=== PATIENT | male | born 1940 | race Caucasian/White ===

== ENCOUNTER 2017-05-02 07:38 | Day surgery (SDC) | payer MEDICARE ==
[2017-05-02] MEDS ORDERED: LACTATED RINGERS 1,000 ML IV ONE (08:06)
[2017-05-02] MEDS ORDERED: MIDAZOLAM 2 MG/2 ML VIAL IVP ONE (09:17)
[2017-05-02] MEDS ORDERED: fentaNYL 100 MCG/2 ML VIAL IVP ONE (09:17)
[2017-05-02 11:19] VITALS: BP 133/67
== END 2017-05-02 07:39 | disposition home or self-care (01) ==
LOC: SDS 07:38
PROVIDERS: ATTEND Surgery
PROC: 0DBL8ZX Excision of Transverse Colon, Via Natural or Artificial Opening Endoscopic, Diagnostic (ICD-10-PCS; 2017-05-02)
PROC: 0DBM8ZX Excision of Descending Colon, Via Natural or Artificial Opening Endoscopic, Diagnostic (ICD-10-PCS; 2017-05-02)
PROC: 0DBK8ZX Excision of Ascending Colon, Via Natural or Artificial Opening Endoscopic, Diagnostic (ICD-10-PCS; principal; 2017-05-02 09:45)
DX: D12.2 Benign neoplasm of ascending colon (principal); D12.3 Benign neoplasm of transverse colon; E03.9 Hypothyroidism, unspecified; Z87.891 Personal history of nicotine dependence; Z88.5 Allergy status to narcotic agent
CPT/HCPCS: 45384; J7120

== ENCOUNTER 2017-06-13 15:00 | Outpatient (CLI) | payer MEDICARE, OTHER | END 2017-06-13 15:01 | disposition home or self-care (01) | LOC: LAB.R 15:00 | PROVIDERS: ATTEND Physician Assistant Medical | DX: L03.90 Cellulitis, unspecified (principal) | CPT/HCPCS: 81599; 87255 ==

== ENCOUNTER 2018-10-05 11:40 | Outpatient (CLI) | payer MEDICARE, OTHER ==
[2018-10-05 18:43] LABS: BASOPHILS % (AUTO) 0.6 %; EOSINOPHILS # (AUTO) 0.1 10^3/uL (0.0-0.7); EOSINOPHILS % (AUTO) 1.4 %; HGB - HEMOGLOBIN 14.3 g/dL (14.0-18.0); LYMPHOCYTES # (AUTO) 1.7 10^3/uL (1.5-3.5); LYMPHOCYTES % (AUTO) 22.5 %; MEAN CORPUSCULAR HEMOGLOBIN 31.6 pg (27.0-31.0); MEAN CORPUSCULAR HGB CONC 32.9 g/dL (32.0-36.0); MEAN PLATELET VOLUME 8.3 fL (7.4-11.4); MONOCYTES # (AUTO) 0.6 10^3/uL (0.0-1.0); MONOCYTES % (AUTO) 8.1 %; NEUTROPHILS # (AUTO) 5.1 10^3/uL (1.5-6.6); NEUTROPHILS % (AUTO) 67.4 %; PLT - PLATELET COUNT 219 10^3/uL (130-450); RED BLOOD COUNT 4.52 10^6/uL (4.70-6.10); RED CELL DISTRIBUTION WIDTH 13.4 % (12.0-15.0); WHITE BLOOD COUNT 7.5 x10^3/uL (4.8-10.8)
[2018-10-05 19:24] LABS: ALBUMIN 3.9 g/dL (3.2-5.5); ALBUMIN/GLOBULIN RATIO 1.2 (1.0-2.2); ALKALINE PHOSPHATASE 70 IU/L (42-121); ALT ALANINE AMINOTRANSFERASE 20 IU/L (10-60); AST ASPARTATE AMINOTRANSFERASE 17 IU/L (10-42); BILIRUBIN,TOTAL 0.8 mg/dL (0.2-1.0); BUN - BLOOD UREA NITROGEN 22 mg/dL (6-20); CALCIUM 8.6 mg/dL (8.5-10.3); CARBON DIOXIDE - CO2 24 mmol/L (21-32); CHLORIDE 106 mmol/L (101-111); CHOL/HDL RATIO 4.3 (<5.0); CHOLESTEROL 196 mg/dL; CREATININE 1.2 mg/dL (0.6-1.2); GFR - MDRD 59 (>89); GLUCOSE 92 mg/dL (70-100); HDL CHOLESTEROL 46 mg/dL; LDL CHOLESTEROL,CALCULATED 124 mg/dL; LDL/HDL RATIO 2.7 (<3.6); SODIUM 136 mmol/L (135-145); TOTAL PROTEIN 7.2 g/dL (6.7-8.2); VLDL CHOLESTEROL 26 mg/dL
[2018-10-05 19:48] LABS: FREE T4 (FREE THYROXINE) 0.73 ng/dL (0.58-1.64)
== END 2018-10-05 23:59 | disposition home or self-care (01) ==
LOC: LAB.WCP 11:40
PROVIDERS: ATTEND Physician Assistant
DX: E78.00 Pure hypercholesterolemia, unspecified (principal); E03.9 Hypothyroidism, unspecified; Z12.5 Encounter for screening for malignant neoplasm of prostate
CPT/HCPCS: 36415; 80053; 80061; 84439; 84443; 85025; G0103; 83721; 84153

== ENCOUNTER 2018-10-08 12:51 | Outpatient (CLI) | payer MEDICARE, OTHER | END 2018-10-08 12:52 | disposition home or self-care (01) | LOC: DI 12:51 | PROVIDERS: ATTEND Physician Assistant | DX: I87.319 Chronic venous hypertension (idiopathic) with ulcer of unspecified lower extremity (principal) | CPT/HCPCS: 93306 ==

== ENCOUNTER 2018-10-30 13:03 | Outpatient (CLI) | payer MEDICARE, OTHER ==
--- NOTE | 2018-10-30 15:58 | Ultrasound Report ---
Reason: VENOUS STASIS EDEMA WITH ULCER Procedure Date: 10/30/2018 Accession Number: [id number] / [id number] Procedure: US - Ankle Brachial Index CPT Code: FULL RESULT: EXAM: BILATERAL ANKLE/BRACHIAL INDEX EXAM DATE: 10/30/2018 01:41 PM. CLINICAL HISTORY: Venous stasis edema with ulcer. COMPARISON: None. TECHNIQUE: A blood pressure cuff and pulse volume recording Doppler ultrasound was used to evaluate the arterial pressures in the arms and ankle. No images were acquired. FINDINGS: Brachial pressure: Right brachial artery: 122/48 mmHg Left brachial artery: 133/45 mmHg Right ankle pressures: Dorsalis pedis artery: 39 mmHg Posterior tibial artery: 72 mmHg Left ankle pressures: Dorsalis pedis artery: 85 mmHg Posterior tibial artery: 80 mmHg IMPRESSION: 1. Right ankle/brachial index: 1.15 2. Left ankle/brachial index: 1.13 ANKLE/BRACHIAL INDEX REFERENCE STANDARDS 1.0-1.4: Normal 0.90-0.99: Borderline < 0.9: Abnormal RADIA
== END 2018-10-30 13:04 | disposition home or self-care (01) ==
LOC: DI 13:03
PROVIDERS: ATTEND Physician Assistant
DX: I87.319 Chronic venous hypertension (idiopathic) with ulcer of unspecified lower extremity (principal); L97.909 Non-pressure chronic ulcer of unspecified part of unspecified lower leg with unspecified severity
CPT/HCPCS: 93922

== ENCOUNTER 2018-11-20 10:11 | Outpatient (CLI) | payer MEDICARE ==
--- NOTE | 2018-11-20 12:27 | XRAY Report ---
Reason: FINGER PAIN, RIGHT Procedure Date: 11/20/2018 Accession Number: [id number] / [id number] Procedure: WCP - Hand 2 View RT CPT Code: FULL RESULT: EXAM: RIGHT HAND RADIOGRAPHY EXAM DATE: 11/20/2018 10:33 AM. CLINICAL HISTORY: Finger pain, right. COMPARISON: XR WRIST COMPLETE 3 VIEWS 10/18/2011 4:11 PM. TECHNIQUE: 2 views. FINDINGS: Bones: Posttraumatic changes in the region of the distal radius and ulna demonstrate further remodeling compared to 2011. No fracture is identified. Joints: Advanced degenerative changes in the triscaphe region near the first carpometacarpal interface. Degenerative changes at the radiocarpal interface, suggestion of early SLAC wrist. Degenerative changes in the fingers follow a pattern of proximal and distal interphalangeal joint space narrowing with a few periarticular lucencies suggesting the possibility of erosive arthritis, most pronounced in the distal third interphalangeal joint, proximal fifth interphalangeal joint and proximal second interphalangeal joint. Soft Tissues: Normal. No soft tissue swelling. IMPRESSION: Advancing degenerative changes as described. RADIA
== END 2018-11-20 10:12 | disposition home or self-care (01) ==
LOC: DI.WCP 10:11
PROVIDERS: ATTEND Physician Assistant
DX: M19.031 Primary osteoarthritis, right wrist (principal); M19.041 Primary osteoarthritis, right hand

== ENCOUNTER 2019-04-29 09:48 | Outpatient (CLI) | payer MEDICARE, OTHER ==
[2019-04-29 18:23] LABS: FREE T4 (FREE THYROXINE) 0.75 ng/dL (0.58-1.64)
== END 2019-04-29 09:49 | disposition home or self-care (01) ==
LOC: LAB.S 09:48
PROVIDERS: ATTEND Family Medicine
DX: E03.9 Hypothyroidism, unspecified (principal)
CPT/HCPCS: 36415; 84439; 84443

== ENCOUNTER 2019-08-02 09:24 | Outpatient (CLI) | payer MEDICARE, OTHER ==
[2019-08-02 17:52] LABS: THYROID STIMULATING HORMONE 8.8 uIU/mL (0.34-5.60)
[2019-08-02 17:54] LABS: FREE T4 (FREE THYROXINE) 0.67 ng/dL (0.58-1.64)
== END 2019-08-02 09:25 | disposition home or self-care (01) ==
LOC: LAB.S 09:24
PROVIDERS: ATTEND Family Medicine
DX: E03.9 Hypothyroidism, unspecified (principal)
CPT/HCPCS: 36415; 84439; 84443; 84481

== ENCOUNTER 2019-09-17 09:43 | Outpatient (CLI) | payer MEDICARE, OTHER | END 2019-09-17 09:44 | disposition home or self-care (01) | LOC: LAB.S 09:43 | PROVIDERS: ATTEND Family Medicine | DX: E03.9 Hypothyroidism, unspecified (principal) | CPT/HCPCS: 36415; 84443 ==

== ENCOUNTER 2020-11-07 07:00 | Outpatient (CLI) | payer MEDICARE, OTHER ==
--- NOTE | 2020-11-07 14:23 | XRAY Report ---
PROCEDURE: Ankle 2 View LT INDICATIONS: L ANKLE PX TECHNIQUE: 2 views of the ankle were acquired. COMPARISON: None FINDINGS: Bones: No fractures or dislocations. Ankle mortise is normally aligned. No suspicious bony lesions . Soft tissues: No tibiotalar joint effusion. Achilles tendon appears normal. IMPRESSION: No acute fracture. No osseous lesion. If symptoms and/or clinical suspicion for patholog y continue, further assessment with repeat plain films, or advanced imaging (e.g., CT, MRI, or bone s can) is recommended for further assessment. Reviewed by: Gladys Noland MD on 11/07/2020 2:22 PM PST Approved by: Gladys Noland MD on 11/07/2020 2:22 PM PST Station ID: [id number]
== END 2020-11-07 23:59 | disposition home or self-care (01) ==
LOC: DI.N 07:00
PROVIDERS: ATTEND Family Medicine
DX: M25.572 Pain in left ankle and joints of left foot (principal)

== ENCOUNTER 2020-11-14 07:48 | Emergency (ER) | payer MEDICARE, OTHER ==
--- NOTE | 2020-11-14 08:39 | XRAY Report ---
PROCEDURE: Ankle 3 View LT INDICATIONS: ankle swelling X 3 weeks atraumatic TECHNIQUE: 3 views of the ankle were acquired. COMPARISON: 11/07/2020 FINDINGS: Bones: No fractures or dislocations. Ankle mortise is normally aligned. No suspicious bony lesions . Well-defined plantar calcaneal enthesophyte is seen. Soft tissues: No tibiotalar joint effusion. Achilles tendon appears normal. Soft tissue swelling a round ankle joint is seen particularly over lateral malleolus. IMPRESSION: No ankle fracture or dislocation. Persistent ankle soft tissue swelling. No bony erosive changes or suspicious bony lesion. Reviewed by: Anderson Skaggs MD on 11/14/2020 8:38 AM PST Approved by: Anderson Skaggs MD on 11/14/2020 8:38 AM PST Station ID: [id number]
--- NOTE | 2020-11-14 08:45 | ED Physician Documentation ---
History of Present Illness - Stated complaint Stated Complaint: LFT ANKLE PX - Chief complaint Chief Complaint: Ext Problem - History obtained from History obtained from: Patient - Additonal information Additional information: 80yM with pmh varicose veins, not on medications, irregular healthcare usage, p/w L ankle pain, swelling, and erythema over the past 3 weeks, constant, raidating up from the foot, aching, moderate severity, worse with weight bearing. denies fevers . denies trauma or prior infection. denies purulent drainage however he does have a small ulcer to the inner foot. Review of Systems Constitutional: denies: Fever, Chills Skin: reports: Lesions Musculoskeletal: reports: Extremity pain PD PAST MEDICAL HISTORY - Past Medical History Past Medical History: Yes Cardiovascular: Peripheral Vascular Disease Respiratory: None Neuro: None Endocrine/Autoimmune: HyPOthyroidism GI: None : None HEENT: None Psych: None Musculoskeletal: None Derm: None - Past Surgical History General: Colonoscopy HEENT: Tonsil/Adenoidectomy - Present Medications Home Medications: Ambulatory Orders Medication Instructions Recorded Confirmed Levothyroxine [Synthroid] 75 mcg PO QDAC 05/01/17 11/14/20 Furosemide 20 mg PO DAILY PRN 11/30/18 11/14/20 Mupirocin 22 gm TP QDBREAKFAST 7 Days #1 11/14/20 bottle cephALEXin [Keflex] 500 mg PO QID 7 Days #28 tab 11/14/20 - Allergies Allergies/Adverse Reactions: Allergies Allergy/AdvReac Type Severity Reaction Status Date / Time codeine AdvReac Nausea Verified 11/14/20 07:53 - Social History Does the pt smoke?: No Smoking Status: Former smoker Does the pt drink ETOH?: No Does the pt have substance abuse?: No - Immunizations Immunizations are current?: No Immunizations: TDAP >10years/unknown - POLST Patient has POLST: No PD ED PE NORMAL - Vitals Vital signs reviewed: Yes - General General: Alert and oriented X 3, No acute distress, Well developed/nourished - HEENT HEENT: Atraumatic, PERRL, EOMI - Derm Derm: Other (L foot and ankle warm to the touch. cellulitis to L foot and ankle with mild swelling) - Extremities Extremities: No tenderness to palpate, Normal ROM s pain, Other (2+ BL DP/PT pulses. BL varicose veins) - Neuro Neuro: Alert and oriented X 3 Results - Vitals Vitals: Vital Signs - 24 hr 11/14/20 11/14/20 11/14/20 07:54 08:07 08:55 Temperature 36.5 C 36.9 C Heart Rate 57 L 55 L 55 L Respiratory 18 16 16 Rate Blood Pressure 123/43 L 167/80 H 140/67 H O2 Saturation 98 99 99 Oxygen O2 Source Room air PD MEDICAL DECISION MAKING - ED course ED course: 80yM p/w foot cellulitis, will trial outpatient antibiotics. patient received extensive education that if he sees no improvement or any spread of erythema in next 24 - 48 h he should return right away for possible iv antibiotics. plan to f/u in [facility]. Departure - Departure Disposition: 01 Home, Self Care Clinical Impression: Hypertension, Cellulitis Instructions: Hypertension Control, Cellulitis Dc Prescriptions: cephALEXin [Keflex] 500 mg PO QID 7 Days #28 tab Mupirocin 22 gm TP QDBREAKFAST 7 Days #1 bottle Comments: You were seen in the emergency department for infection of the L ankle (cellulitis). Take your antibiotics and return to the emergency room right away if the redness is continuing to spread. Take tylenol 650mg every 6 hours as needed for pain. Avoid taking extra tylenol since it can be bad for your liver. Avoid drinking excessive alcohol while taking tylenol. Follow up with your primary doctor to have your blood pressure rechecked. Discharge Date/Time: 11/14/20 08:56
[2020-11-14 08:56] VITALS: BP 140/67
== END 2020-11-14 08:56 | disposition home or self-care (01) ==
LOC: ED 07:48
DX: L03.116 Cellulitis of left lower limb (principal); I10 Essential (primary) hypertension; Z87.891 Personal history of nicotine dependence
CPT/HCPCS: 99283; 99284

== ENCOUNTER 2020-11-16 08:27 | Inpatient (IN) | payer MEDICARE, OTHER ==
[2020-11-16] MEDS ORDERED: KETOROLAC 30 MG/ML VIAL IVP STA (09:16)
[2020-11-16] MEDS ORDERED: AMPICILLIN/SULBACTAM 3 GM in SODIUM CHLORIDE 0.9% MINIBAG 100 ML IV STA (09:17)
[2020-11-16] MEDS ORDERED: VANCOMYCIN INJ 1 GM in SODIUM CHLORIDE 0.9% 500 ML IV STA (09:17)
--- NOTE | 2020-11-16 09:22 | ED Physician Documentation ---
History of Present Illness - Stated complaint Stated Complaint: LT ANKLE PX - Chief complaint Chief Complaint: Ext Problem - History obtained from History obtained from: Patient - History of Present Illness Timing: Today Pain level max: 8 Pain level now: 6 - Additonal information Additional information: 80-year-old male presents to the emergency department with 6 weeks of left ankle swelling, gradually worsening over the past several days. Was seen here 2 days ago, diagnosed with cellulitis and started on oral antibiotics. He states that the redness and swelling have worsened since that time. No fevers. There was purulent drainage from the ankle last night. Having continued pain, came in for evaluation. He does not take any other medications at home. Worse with walking, better with rest. Denies any injury. Negative x-rays 2 days ago Review of Systems Ten Systems: 10 systems reviewed and negative Constitutional: denies: Fever, Chills Respiratory: denies: Cough GI: denies: Nausea, Diarrhea Skin: denies: Rash Musculoskeletal: denies: Neck pain, Back pain Neurologic: denies: Headache PD PAST MEDICAL HISTORY - Past Medical History Cardiovascular: Peripheral Vascular Disease Respiratory: None Neuro: None Endocrine/Autoimmune: HyPOthyroidism GI: None : None HEENT: None Psych: None Musculoskeletal: None Derm: None - Past Surgical History General: Colonoscopy HEENT: Tonsil/Adenoidectomy - Present Medications Home Medications: Ambulatory Orders Medication Instructions Recorded Confirmed Mupirocin 22 gm TP QDBREAKFAST 7 Days #1 11/14/20 11/16/20 bottle cephALEXin [Keflex] 500 mg PO QID 7 Days #28 tab 11/14/20 11/16/20 - Allergies Allergies/Adverse Reactions: Allergies Allergy/AdvReac Type Severity Reaction Status Date / Time codeine AdvReac Nausea Verified 11/16/20 08:35 - Social History Does the pt smoke?: No Smoking Status: Former smoker Does the pt drink ETOH?: No Does the pt have substance abuse?: No - Immunizations Immunizations are current?: No Immunizations: TDAP >10years/unknown - POLST Patient has POLST: No PD ED PE NORMAL - Vitals Vital signs reviewed: Yes - General General: Alert and oriented X 3, No acute distress - HEENT HEENT: Moist mucous membranes - Neck Neck: Supple, no meningeal sign - Cardiac Cardiac: RRR - Respiratory Respiratory: No respiratory distress, Clear bilaterally - Abdomen Abdomen: Soft, Non tender, Non distended - Derm Derm: Warm and dry - Extremities Extremities: Other - Neuro Neuro: Alert and oriented X 3 - Free text exam Free text exam: Left lower extremity - There is moderate erythema from the mid calf down to the toes. Mostly on the dorsum of the foot and anterior aspect of the calf, however it does go to the back of the calf as well. There are several small ulcerated areas, there is a small fluctuant area to the lateral malleolus. There is purulent drainage from the lateral aspect of the ankle. Results - Vitals Vitals: Vital Signs - 24 hr 11/16/20 08:32 Temperature 36.0 C L Heart Rate 52 L Respiratory 20 Rate Blood Pressure 168/51 H O2 Saturation 98 Oxygen O2 Source Room air - Labs Labs: Microbiology 11/16/20 09:10 Wound Culture - Preliminary Ankle - Left Laboratory Tests 11/16/20 11/16/20 11/16/20 09:30 09:30 09:30 WBC 7.2 RBC 4.96 Hgb 15.1 Hct 46.8 MCV 94.4 H MCH 30.4 MCHC 32.3 RDW 12.1 Plt Count 259 MPV 9.4 Neut # (Auto) 5.5 Lymph # (Auto) 0.8 L [place] # (Auto) 0.7 Eos # (Auto) 0.2 Baso # (Auto) 0.0 Absolute Nucleated RBC 0.00 Nucleated RBC % 0.0 ESR 54 H Sodium 138 Potassium 4.1 Chloride 102 Carbon Dioxide 22 Anion Gap 14.0 H BUN 33 H Creatinine 1.3 H Estimated GFR (MDRD) 53 L Glucose 107 H Calcium 9.2 Total Bilirubin 1.3 H AST 31 ALT 57 Alkaline Phosphatase 102 C-Reactive Protein 16.0 H Total Protein 8.1 Albumin 3.8 Globulin 4.3 H Albumin/Globulin Ratio 0.9 L Nasal Adenovirus (PCR) Nasal B. parapertussis DNA (PCR) Nasal Coronavir 229E PCR Nasal Coronavir HKU1 PCR Nasal Coronavir NL63 PCR Nasal Coronavir OC43 PCR Nasal Enterovir/Rhinovir PCR Nasal Influenza B PCR Nasal Influenza A PCR Nasal Parainfluen 1 PCR Nasal Parainfluen 2 PCR Nasal Parainfluen 3 PCR Nasal Parainfluen 4 PCR Nasal RSV (PCR) Nasal B.pertussis DNA PCR Nasal C.pneumoniae (PCR) Petar Human Metapneumo PCR Nasal M.pneumoniae (PCR) Nasal SARS-CoV-2 (PCR) 11/16/20 09:36 WBC RBC Hgb Hct MCV MCH MCHC RDW Plt Count MPV Neut # (Auto) Lymph # (Auto) [place] # (Auto) Eos # (Auto) Baso # (Auto) Absolute Nucleated RBC Nucleated RBC % ESR Sodium Potassium Chloride Carbon Dioxide Anion Gap BUN Creatinine Estimated GFR (MDRD) Glucose Calcium Total Bilirubin AST ALT Alkaline Phosphatase C-Reactive Protein Total Protein Albumin Globulin Albumin/Globulin Ratio Nasal Adenovirus (PCR) NOT DETECTED Nasal B. parapertussis DNA (PCR) NOT DETECTED Nasal Coronavir 229E PCR NOT DETECTED Nasal Coronavir HKU1 PCR NOT DETECTED Nasal Coronavir NL63 PCR NOT DETECTED Nasal Coronavir OC43 PCR NOT DETECTED Nasal Enterovir/Rhinovir PCR NOT DETECTED Nasal Influenza B PCR NOT DETECTED Nasal Influenza A PCR NOT DETECTED Nasal Parainfluen 1 PCR NOT DETECTED Nasal Parainfluen 2 PCR NOT DETECTED Nasal Parainfluen 3 PCR NOT DETECTED Nasal Parainfluen 4 PCR NOT DETECTED Nasal RSV (PCR) NOT DETECTED Nasal B.pertussis DNA PCR NOT DETECTED Nasal C.pneumoniae (PCR) NOT DETECTED Petar Human Metapneumo PCR NOT DETECTED Nasal M.pneumoniae (PCR) NOT DETECTED Nasal SARS-CoV-2 (PCR) NOT DETECTED PD MEDICAL DECISION MAKING - ED course Complexity details: reviewed old records, reviewed results, re-evaluated patient, considered differential, d/w patient, d/w franchise consultant ED course: 80-year-old male with a significant cellulitis of the left ankle along with pus that was expressed from the lateral malleolus. Does not appear to be a septic joint. Does not have pain with range of motion of the foot. No fever. He has been on oral antibiotics without improvement. We will admit for IV antibiotics. Discussed the case with Dr. Lewis, hospitalist who accepts This document was made in part using voice recognition software. While efforts are made to proofread this document, sound alike and grammatical errors may occur. Departure - Departure Disposition: [facility] DC/Xfer Clinical Impression: Abscess Cellulitis Qualifiers: Site of cellulitis: extremity Site of cellulitis of extremity: lower extremity Laterality: left Qualified Code(s): L03.116 - Cellulitis of left lower limb Condition: Stable Discharge Date/Time: 11/16/20 11:38
[2020-11-16 09:35] LABS: BASOPHILS % (AUTO) 0.6 %; EOSINOPHILS # (AUTO) 0.2 10^3/uL (0.0-0.7); EOSINOPHILS % (AUTO) 2.5 %; HCT - HEMATOCRIT 46.8 % (42.0-52.0); HGB - HEMOGLOBIN 15.1 g/dL (14.0-18.0); LYMPHOCYTES # (AUTO) 0.8 10^3/uL (1.5-3.5); LYMPHOCYTES % (AUTO) 10.7 %; MEAN CORPUSCULAR HEMOGLOBIN 30.4 pg (27.0-31.0); MEAN CORPUSCULAR HGB CONC 32.3 g/dL (32.0-36.0); MEAN CORPUSCULAR VOLUME 94.4 fL (80.0-94.0); MEAN PLATELET VOLUME 9.4 fL (7.4-11.4); MONOCYTES # (AUTO) 0.7 10^3/uL (0.0-1.0); NEUTROPHILS # (AUTO) 5.5 10^3/uL (1.5-6.6); NEUTROPHILS % (AUTO) 75.8 %; PLT - PLATELET COUNT 259 10^3/uL (130-450); RED BLOOD COUNT 4.96 10^6/uL (4.70-6.10); RED CELL DISTRIBUTION WIDTH 12.1 % (12.0-15.0); WHITE BLOOD COUNT 7.2 x10^3/uL (4.8-10.8)
[2020-11-16 09:54] LABS: ALBUMIN 3.8 g/dL (3.2-5.5); ALBUMIN/GLOBULIN RATIO 0.9 (1.0-2.2); BILIRUBIN,TOTAL 1.3 mg/dL (0.2-1.0); CALCIUM 9.2 mg/dL (8.5-10.3); CREATININE 1.3 mg/dL (0.6-1.2); POTASSIUM 4.1 mmol/L (3.5-5.0); TOTAL PROTEIN 8.1 g/dL (6.7-8.2)
[2020-11-16] MEDS ORDERED: ONDANSETRON ODT 4 MG TABLET TL PRN (10:18)
[2020-11-16] MEDS ORDERED: ONDANSETRON 4 MG/2 ML VIAL IVP PRN (10:18)
[2020-11-16 10:46] LABS: B. PARAPERTUSSIS- RESP PCR PAN NOT DETECTED; B. PERTUSSIS- RESP PCR PANEL NOT DETECTED; C. PNEUMONIAE- RESP PCR PANEL NOT DETECTED; CORONAVIRUS 229E-RESP PCR NOT DETECTED; CORONAVIRUS HKU1-RESP PCR NOT DETECTED; CORONAVIRUS NL63-RESP PCR NOT DETECTED; CORONAVIRUS OC43-RESP PCR NOT DETECTED; HUMAN METAPNEUMOVIRUS NOT DETECTED; INFLUENZA A- RESP PCR PANEL NOT DETECTED; INFLUENZA B - RESP PCR PANEL NOT DETECTED; M. PNEUMONIAE- RESP PCR PANEL NOT DETECTED; PARAINFLUENZA VIRUS 1 NOT DETECTED; PARAINFLUENZA VIRUS 2 NOT DETECTED; PARAINFLUENZA VIRUS 3 NOT DETECTED; PARAINFLUENZA VIRUS 4 NOT DETECTED; RHINOVIRUS/ENTEROVIRUS NOT DETECTED; RSV- RESP PCR PANEL NOT DETECTED; SARS-CoV-2 -RESP PCR PANEL NOT DETECTED
[2020-11-16] MEDS ORDERED: LACTATED RINGERS 1,000 ML IV SCH (11:00)
[2020-11-16] MEDS ORDERED: VANCOMYCIN INJ 1 GM in SODIUM CHLORIDE 0.9% 250 ML IV SCH (12:00)
[2020-11-16] MEDS ORDERED: ceFAZolin 1 GM in SODIUM CHLORIDE 0.9% MINIBAG 100 ML IV SCH (14:00)
--- NOTE | 2020-11-16 14:09 | HISTORY & PHYSICAL EXAMINATION ---
Chief Complaint - Chief Complaint Chief Complaint: left ankle abscess, cellulitis History of Present Illness - Admitted From Admitted From:: ED - History Obtained From Records Reviewed: [facility] History obtained from: Patient, chart - History of Present Illness HPI Comment/Other: 80 year old male with no significant past medical history presented to the ED this morning reporting 6 weeks of left ankle swelling and gradually progressing erythema. He was seen in the ED 2 days ago, diagnosed with cellulitis and started on oral antibiotics. He reports the erythema has continued to worsen and increase since then, and pain and swelling increased. Last night he noticed a blister over the left ankle that then "popped". He covered the area with g auze and then laid on it to stop the blood. He brought himself to the ED for further evaluation. Denies fevers, chills, SOB, cough, n/v. Does have increased pain to the area, worse with walking and better when resting. Denies any animal bites or trauma to the area, unsure what started the skin breakdown. In the ED an area of fluctuance was I&D'd and expressed a small amount of pus. The drainage currently on the bandage is serosanguinous. He was admitted for IV antibiotics given failure of outpatient management, evidenced by increasing erythema, swelling and pain with new loculation. History - Past Medical History Cardiovascular: reports: None Respiratory: reports: None Neuro: reports: None Endocrine/Autoimmune: reports: None, HyPOthyroidism GI: reports: None : reports: None HEENT: reports: None Psych: reports: None Musculoskeletal: reports: None Derm: reports: None MRSA Hx?: No - Past Surgical History General: reports: Colonoscopy HEENT: reports: Tonsil/Adenoidectomy - Family & Social History Family History: Mother: , Father: Family History Comment/Other: Pt does not remember his parents' medical history but believes they were both healthy up until time of . His daughter at approximately age 45 of either CHF or emphysema, he cannot remember which. Living arrangement: At home Living Situation: Alone Social History Notes: Lives alone in a cottage, no pets. from his for >40 years, believes she is currently living in [place]. 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 Quit smoking >40 years ago, previously smoked tobacco approx 1/2 PPD for 10 years. Rarely drinks alcohol and none lately. Denies illicit drug use. - Substance History Use: Uses substance without health or social issues: NONE Abuse: Recurrent use of substance despite neg consequences: NONE - POLST Patient has POLST: No POLST Status: Full Code Meds/Allgy - Home Medications Home Medications: Ambulatory Orders Medication Instructions Recorded Confirmed Mupirocin 22 gm TP QDBREAKFAST 7 Days #1 11/14/20 11/16/20 bottle cephALEXin [Keflex] 500 mg PO QID 7 Days #28 tab 11/14/20 11/16/20 - Allergies Allergies/Adverse Reactions: Allergies Allergy/AdvReac Type Severity Reaction Status Date / Time codeine AdvReac Nausea Verified 11/16/20 08:35 Review of Systems - Constitutional Constitutional: reports: Poor appetite. denies: Fatigue, Fever, Chills, Weakness, Weight gain, Weight loss - Eyes Eyes: denies: Pain, Blurred vision, Vision loss - Ears, Nose & Throat Ears, Nose & Throat: denies: Ear pain, Hearing loss, Nasal pain, Sore throat, Hoarseness - Cardiovascular Cariovascular: denies: Irregular heart rate, Palpitations, Chest pain, Edema - Respiratory Respiratory: denies: Cough, SOB at rest, SOB with exertion - Gastrointestinal Gastrointestinal: denies: Abdominal pain, Abdominal distention, Constipation, Diarrhea, Change in bowel habits - Genitourinary Genitourinary: denies: Dysuria, Frequency, Urgency, Hematuria, Nocturia - Musculoskeletal Musculoskeletal: denies: Muscle pain, Back pain, Muscle aches - Integumentary Integumentary: reports: Other (increasing erythema and blistering to the left ankle) - Neurological Neurological: denies: General weakness, Headache, Dizziness - Psychiatric Psychiatric: denies: Depression, Anxiety - Endocrine Endocrine: denies: Polyuria, Polydypsia, Polyphagia - Hematologic/Lymphatic Hematologic/Lymphatic: denies: Anemia, Bruising, Petechiae, Recurrent infections - All Other Systems All Other Systems: reports: Reviewed and negative Prior Level of Functionality: Independent at home with ADLs, iADLs, housework, paying bills, cooking food, etc. Able to get around independently. Exam - Vital Signs Reviewed Vital Signs: Yes Vital Signs: Vital Signs x48h Temp Pulse Pulse Resp BP BP Pulse Ox 11/16/20 12:07 36.3 C L 45 L 16 147/55 H 99 11/16/20 11:31 44 L 16 149/54 H 100 11/16/20 11:24 36.5 C 50 L 20 154/53 H 100 11/16/20 08:32 36.0 C L 52 L 20 168/51 H 98 - Physical Exam General Appearance: positive: No acute distress, Alert Eyes Bilateral: positive: Normal inspection, PERRL ENT: positive: ENT inspection nml, No signs of dehydration Neck: positive: Nml inspection Respiratory: positive: Chest non-tender, No respiratory distress, Breath sounds nml Cardiovascular: positive: Regular rate & rhythm, No murmur, No gallop Peripheral Pulses: positive: 2+ Abdomen: positive: Non-tender, No organomegaly, Nml bowel sounds, No distention Skin: positive: Other (L calf to toes erythema with I&D site present; fibrinous tissue present at the I&D site, purple discoloration noted over the ankle and then an area of induration is present below this. Scattered scabs present on the bilateral feet) Extremities: positive: Full ROM, Pedal edema, Other (edema present from midcalf to toes, varicosities also present) Neurologic/Psychiatric: positive: Oriented x3 Sepsis Event Note (H) - Evaluation Current Stage of Sepsis: Ruled out Conclusion/Plan - Problem List (1) Abscess Conclusion/Plan: Pt reports erythema appeared approximately 6 weeks ago, worsened 2 days ago. He was started on abx for cellulitis 2 days ago but notes that last night a blister appeared and "popped". He covered it with gauze and laid on the bed with the gauze side down to stop the bleeding. When he woke up he came to the ER. In the ER the site was drainage with reportedly 10mL pus present. On evaluation this afternoon there is a centralized purple area/purpura over the ankle and the I&D site is above it. The tissue is macerated and fibrinous, no tracking. Below the purpura is an area of slight induration. The entire foot is painful to patient. Pulses are palpable. No active purulence, current drainage is serosanguinous. No odor. Nursing outlined the erythema for closer monitoring. 1. Daily dry dressing change with PRN change for soiling/saturation 2. IV abx 3. General Surgery consult if no improvement with abx tomorrow (2) Cellulitis Conclusion/Plan: Reports that erythema appeared approximately 6 weeks ago and worsened 2 days ago. He was seen in the ED and given antibiotics, however the erythema continued to worsen and spread so he returned to the ED today. He was admitted for IV antibiotics given that the cellulitis initially was localized near the ankle with rapid increase around the calf and now with loculated pus despite outpatient management. The leg is slightly swollen. The skin is warm, erythema present from toes to mid calf, warmer over this area than adjacent skin. Localized purpura over the ankle, I7D site above this with slight induration below this. Painful to patient. 1. IV abx 2. Nursing marked the cellulitis with a skin pen, will monitor for continued spread 3. Elevation for edema management 4. Daily CBC Qualifiers: Site of cellulitis: extremity Site of cellulitis of extremity: lower extremity Laterality: left Qualified Code(s): L03.116 - Cellulitis of left lower limb (3) Hypertension Conclusion/Plan: Pt is bradycardic to the 40-50s range with hypertension SBP 140s-160s. EKG shows sinus bradycardia with a left bundle branch block. This is likely compensatory HTN related to the bradycardia. Will continue to monitor, no plans to treat at this time. 1. Check daily BP Qualifiers: Hypertension type: unspecified secondary hypertension Qualified Code(s): I15.9 - Secondary hypertension, unspecified; I15 - Secondary hypertension - Lab Results Fish Bones: 11/16/20 09:30 11/16/20 09:30 - EKG Results EKG Interpreted Independently: Yes EKG Comparison: No prior EKG (agree with print out)
[2020-11-16] MEDS: SODIUM CHLORIDE FLUSH 0.9% 10 ML SYRINGE IVP SCH (16:08)
[2020-11-17] MEDS: oxyCODONE 5 MG TABLET PO PRN ×2 (01:37→14:19)
[2020-11-17] MEDS: SODIUM CHLORIDE FLUSH 0.9% 10 ML SYRINGE IVP SCH ×4 (01:37→18:30)
[2020-11-17] MEDS: SODIUM CHLORIDE FLUSH 0.9% 10 ML SYRINGE IVP PRN (01:46)
[2020-11-17 04:54] LABS: BASOPHILS # (AUTO) 0.1 10^3/uL (0.0-0.1); EOSINOPHILS # (AUTO) 0.3 10^3/uL (0.0-0.7); EOSINOPHILS % (AUTO) 4.1 %; HCT - HEMATOCRIT 39.2 % (42.0-52.0); HGB - HEMOGLOBIN 12.6 g/dL (14.0-18.0); LYMPHOCYTES # (AUTO) 1.2 10^3/uL (1.5-3.5); LYMPHOCYTES % (AUTO) 15.9 %; MEAN CORPUSCULAR HEMOGLOBIN 30.4 pg (27.0-31.0); MEAN CORPUSCULAR HGB CONC 32.1 g/dL (32.0-36.0); MEAN CORPUSCULAR VOLUME 94.7 fL (80.0-94.0); MEAN PLATELET VOLUME 9.6 fL (7.4-11.4); MONOCYTES # (AUTO) 0.7 10^3/uL (0.0-1.0); MONOCYTES % (AUTO) 9.7 %; NEUTROPHILS % (AUTO) 68.8 %; PLT - PLATELET COUNT 247 10^3/uL (130-450); RED BLOOD COUNT 4.14 10^6/uL (4.70-6.10); RED CELL DISTRIBUTION WIDTH 12.2 % (12.0-15.0); WHITE BLOOD COUNT 7.3 x10^3/uL (4.8-10.8)
[2020-11-17 05:01] LABS: CALCIUM 8.2 mg/dL (8.5-10.3); CREATININE 1.2 mg/dL (0.6-1.2); POTASSIUM 4.4 mmol/L (3.5-5.0)
--- NOTE | 2020-11-17 08:26 | PROVIDER PROGRESS NOTE ---
Subjective - Prog Note Date Prog Note Date: 11/17/20 - Subjective Pt reports feeling: Improved Subjective: Slept well overnight. Erythema/cellulitis improving this morning. Reports pain in his foot when ambulating to the bathroom, resolves when lying in bed with legs elevated. Denies SOB, fever, n/v. No other complaints. Objective - Vital Signs/Intake & Output Reviewed Vital Signs: Yes Vital Signs: Vital Signs x48h Temp Pulse Resp BP BP Pulse Ox 11/17/20 08:04 36.4 C L 45 L 16 115/40 L 120/45 L 98 Intake & Output: Intake & Output 11/14/20 11/15/20 11/16/20 11/17/20 23:59 23:59 23:59 23:59 Intake Total 2741.667 1478.333 Balance 2741.667 1478.333 - Objective General Appearance: positive: No acute distress, Alert Eyes Bilateral: positive: Normal inspection ENT: positive: ENT inspection nml, No signs of dehydration Neck: positive: Nml inspection Respiratory: positive: Chest non-tender, No respiratory distress, Breath sounds nml Cardiovascular: positive: Regular rate & rhythm, No murmur, No gallop, Bradycardia Peripheral Pulses: 2+ Radial (R), 2+ Radial (L), 2+ Dorsalis pedis (R), 2+ Dorsalis pedis (L) Abdomen: positive: Non-tender, No organomegaly, Nml bowel sounds, No distention Back: positive: Nml inspection Skin: positive: Other (erythema and abscess to left lateral malleolus. Improving cellulitis.) Extremities: positive: Non-tender, Full ROM, No pedal edema Neurologic/Psychiatric: positive: Oriented x3 - Lab Results Fish Bones: 11/17/20 04:07 11/17/20 04:07 Other Labs: Lab Results x24hrs 11/17/20 11/17/20 11/16/20 Range/Units 04:07 04:07 09:36 WBC 7.3 (4.8-10.8) x10^3/uL RBC 4.14 L (4.70-6.10) 10^6/uL Hgb 12.6 L (14.0-18.0) g/dL Hct 39.2 L (42.0-52.0) % MCV 94.7 H (80.0-94.0) fL MCH 30.4 (27.0-31.0) pg MCHC 32.1 (32.0-36.0) g/dL RDW 12.2 (12.0-15.0) % Plt Count 247 (130-450) 10^3/uL MPV 9.6 (7.4-11.4) fL Neut # (Auto) 5.0 (1.5-6.6) 10^3/uL Lymph # (Auto) 1.2 L (1.5-3.5) 10^3/uL [place] # (Auto) 0.7 (0.0-1.0) 10^3/uL Eos # (Auto) 0.3 (0.0-0.7) 10^3/uL Baso # (Auto) 0.1 (0.0-0.1) 10^3/uL Absolute Nucleated RBC 0.00 x10^3/uL Nucleated RBC % 0.0 /100WBC ESR (0-20) mm/Hr Sodium 138 (135-145) mmol/L Potassium 4.4 (3.5-5.0) mmol/L Chloride 107 (101-111) mmol/L Carbon Dioxide 22 (21-32) mmol/L Anion Gap 9.0 (6-13) BUN 35 H (6-20) mg/dL Creatinine 1.2 (0.6-1.2) mg/dL Estimated GFR (MDRD) 58 L (>89) Glucose 112 H (70-100) mg/dL Calcium 8.2 L (8.5-10.3) mg/dL Total Bilirubin (0.2-1.0) mg/dL AST (10-42) IU/L ALT (10-60) IU/L Alkaline Phosphatase (42-121) IU/L C-Reactive Protein (0-1.0) mg/dL Total Protein (6.7-8.2) g/dL Albumin (3.2-5.5) g/dL Globulin (2.1-4.2) g/dL Albumin/Globulin Ratio (1.0-2.2) Nasal Adenovirus (PCR) NOT DETECTED Nasal B. parapertussis DNA (PCR) NOT DETECTED Nasal Coronavir 229E PCR NOT DETECTED Nasal Coronavir HKU1 PCR NOT DETECTED Nasal Coronavir NL63 PCR NOT DETECTED Nasal Coronavir OC43 PCR NOT DETECTED Nasal Enterovir/Rhinovir PCR NOT DETECTED Nasal Influenza B PCR NOT DETECTED Nasal Influenza A PCR NOT DETECTED Nasal Parainfluen 1 PCR NOT DETECTED Nasal Parainfluen 2 PCR NOT DETECTED Nasal Parainfluen 3 PCR NOT DETECTED Nasal Parainfluen 4 PCR NOT DETECTED Nasal RSV (PCR) NOT DETECTED Nasal B.pertussis DNA PCR NOT DETECTED Nasal C.pneumoniae (PCR) NOT DETECTED Petar Human Metapneumo PCR NOT DETECTED Nasal M.pneumoniae (PCR) NOT DETECTED Nasal SARS-CoV-2 (PCR) NOT DETECTED 11/16/20 11/16/20 11/16/20 Range/Units 09:30 09:30 09:30 WBC 7.2 (4.8-10.8) x10^3/uL RBC 4.96 (4.70-6.10) 10^6/uL Hgb 15.1 (14.0-18.0) g/dL Hct 46.8 (42.0-52.0) % MCV 94.4 H (80.0-94.0) fL MCH 30.4 (27.0-31.0) pg MCHC 32.3 (32.0-36.0) g/dL RDW 12.1 (12.0-15.0) % Plt Count 259 (130-450) 10^3/uL MPV 9.4 (7.4-11.4) fL Neut # (Auto) 5.5 (1.5-6.6) 10^3/uL Lymph # (Auto) 0.8 L (1.5-3.5) 10^3/uL [place] # (Auto) 0.7 (0.0-1.0) 10^3/uL Eos # (Auto) 0.2 (0.0-0.7) 10^3/uL Baso # (Auto) 0.0 (0.0-0.1) 10^3/uL Absolute Nucleated RBC 0.00 x10^3/uL Nucleated RBC % 0.0 /100WBC ESR 54 H (0-20) mm/Hr Sodium 138 (135-145) mmol/L Potassium 4.1 (3.5-5.0) mmol/L Chloride 102 (101-111) mmol/L Carbon Dioxide 22 (21-32) mmol/L Anion Gap 14.0 H (6-13) BUN 33 H (6-20) mg/dL Creatinine 1.3 H (0.6-1.2) mg/dL Estimated GFR (MDRD) 53 L (>89) Glucose 107 H (70-100) mg/dL Calcium 9.2 (8.5-10.3) mg/dL Total Bilirubin 1.3 H (0.2-1.0) mg/dL AST 31 (10-42) IU/L ALT 57 (10-60) IU/L Alkaline Phosphatase 102 (42-121) IU/L C-Reactive Protein 16.0 H (0-1.0) mg/dL Total Protein 8.1 (6.7-8.2) g/dL Albumin 3.8 (3.2-5.5) g/dL Globulin 4.3 H (2.1-4.2) g/dL Albumin/Globulin Ratio 0.9 L (1.0-2.2) Nasal Adenovirus (PCR) Nasal B. parapertussis DNA (PCR) Nasal Coronavir 229E PCR Nasal Coronavir HKU1 PCR Nasal Coronavir NL63 PCR Nasal Coronavir OC43 PCR Nasal Enterovir/Rhinovir PCR Nasal Influenza B PCR Nasal Influenza A PCR Nasal Parainfluen 1 PCR Nasal Parainfluen 2 PCR Nasal Parainfluen 3 PCR Nasal Parainfluen 4 PCR Nasal RSV (PCR) Nasal B.pertussis DNA PCR Nasal C.pneumoniae (PCR) Petar Human Metapneumo PCR Nasal M.pneumoniae (PCR) Nasal SARS-CoV-2 (PCR) - Diagnostic Imaging Diagnostic Imaging Results: positive: Final report reviewed ABX Reporting Has patient been on IV antibiotics over the past 48 hours?: Yes Sepsis Event Note (H) - Evaluation Current Stage of Sepsis: Ruled out Assessment/Plan - Problem List (1) Abscess Impression: RN changed the dressing this morning, reported small amount of purulence. Surrounding cellulitis has improved with IV abx. Wound culture growing MSSA, antibiotics transitioned from Vancomycin. On exam this morning, the abscess is improved in appearance and less swollen. The purple discoloration as resolved and now the area is just red and healing. Skin is dry and scaly. There is an area of raised slightly boggy skin below the ankle and the I&D site remains fibrinous and draining serosanguinous drainage. 1. Daily dry dressing change with PRN change for soiling/saturation 2. IV abx (2) Cellulitis Impression: Improved. Swelling, pain and erythema have improved. Now reports pain only with ambulation related to the abscess. WBC 7 today. 1. IV abx 2. Monitor erythema 3. Elevation for edema management 4. Daily CBC Qualifiers: Site of cellulitis: extremity Site of cellulitis of extremity: lower extremity Laterality: left Qualified Code(s): L03.116 - Cellulitis of left lower limb (3) Hypertension Impression: Resolved. No hypertension overnight or this morning, may have been related to pain yesterday. EKG showing sinus bradycardia with a left bundle branch block, HR remains 40s-50s. Qualifiers: Hypertension type: unspecified secondary hypertension Qualified Code(s): I15.9 - Secondary hypertension, unspecified; I15 - Secondary hypertension
[2020-11-17] MEDS: SENNA 8.6 MG TABLET PO SCH (09:15)
[2020-11-17] MEDS: polyethylene glycoL 3350 17 GM PACKET PO SCH (09:15)
[2020-11-17] MEDS: DOCUSATE SODIUM 250 MG CAPSULE PO SCH (09:15)
[2020-11-17] MEDS: ENOXAPARIN 40 MG/0.4 ML SYRINGE SUBQ SCH (09:16)
[2020-11-17] MEDS ORDERED: VANCOMYCIN INJ 1 GM, VANCOMYCIN INJ 500 MG in SODIUM CHLORIDE 0.9% 500 ML IV SCH (14:00)
[2020-11-17] MEDS: ceFAZolin 2 GM/50 ML 2 GM/50 ML BAG IV SCH ×2 (14:02→22:23)
[2020-11-17] MEDS: ACETAMINOPHEN 325 MG TABLET PO PRN (14:19)
[2020-11-18] MEDS: SODIUM CHLORIDE FLUSH 0.9% 10 ML SYRINGE IVP SCH ×4 (00:27→23:38)
[2020-11-18] MEDS: SODIUM CHLORIDE FLUSH 0.9% 10 ML SYRINGE IVP PRN ×2 (05:32→13:23)
[2020-11-18] MEDS: ceFAZolin 2 GM/50 ML 2 GM/50 ML BAG IV SCH ×3 (05:32→21:19)
[2020-11-18 05:43] LABS: BASOPHILS # (AUTO) 0.1 10^3/uL (0.0-0.1); BASOPHILS % (AUTO) 0.8 %; EOSINOPHILS # (AUTO) 0.3 10^3/uL (0.0-0.7); EOSINOPHILS % (AUTO) 3.9 %; HCT - HEMATOCRIT 44.1 % (42.0-52.0); HGB - HEMOGLOBIN 13.9 g/dL (14.0-18.0); LYMPHOCYTES # (AUTO) 1.1 10^3/uL (1.5-3.5); LYMPHOCYTES % (AUTO) 16.5 %; MEAN CORPUSCULAR HEMOGLOBIN 30.4 pg (27.0-31.0); MEAN CORPUSCULAR HGB CONC 31.5 g/dL (32.0-36.0); MEAN CORPUSCULAR VOLUME 96.5 fL (80.0-94.0); MEAN PLATELET VOLUME 9.4 fL (7.4-11.4); MONOCYTES # (AUTO) 0.5 10^3/uL (0.0-1.0); MONOCYTES % (AUTO) 7.2 %; NEUTROPHILS # (AUTO) 4.5 10^3/uL (1.5-6.6); PLT - PLATELET COUNT 259 10^3/uL (130-450); RED BLOOD COUNT 4.57 10^6/uL (4.70-6.10); RED CELL DISTRIBUTION WIDTH 12.3 % (12.0-15.0); WHITE BLOOD COUNT 6.4 x10^3/uL (4.8-10.8)
[2020-11-18 05:50] LABS: CALCIUM 8.4 mg/dL (8.5-10.3); CREATININE 1.1 mg/dL (0.6-1.2); POTASSIUM 4.6 mmol/L (3.5-5.0)
--- NOTE | 2020-11-18 10:01 | PROVIDER PROGRESS NOTE ---
Subjective - Prog Note Date Prog Note Date: 11/18/20 - Subjective Pt reports feeling: Improved Subjective: Pt slept well overnight but notes one episode of waking up wheezing. No cough or productive sputum, no chest pain, SOB or palpitations. Denied n/v. Feels his foot is improving but continues to report pain with ambulation, improved with elevation. Objective - Vital Signs/Intake & Output Reviewed Vital Signs: Yes Vital Signs: Vital Signs x48h Temp Pulse Resp BP Pulse Ox 11/18/20 07:18 36.3 C L 43 L 16 151/51 H 99 Intake & Output: Intake & Output 11/15/20 11/16/20 11/17/20 11/18/20 23:59 23:59 23:59 23:59 Intake Total 2741.667 2868.333 890 Balance 2741.667 2868.333 890 - Objective General Appearance: positive: No acute distress, Alert Eyes Bilateral: positive: Normal inspection, PERRL, EOMI ENT: positive: ENT inspection nml, No signs of dehydration Neck: positive: Nml inspection Respiratory: positive: Chest non-tender, No respiratory distress, Breath sounds nml Cardiovascular: positive: Regular rate & rhythm, No murmur, No gallop, Bradycardia Peripheral Pulses: 2+ Radial (R), 2+ Radial (L), 2+ Popliteal (R), 2+ Popliteal (L) Abdomen: positive: Non-tender, No organomegaly, Nml bowel sounds, No distention Back: positive: Nml inspection Skin: positive: Other (L Lateral Malleolus continues to be erythematous though cellulitis is greatly improved. Three areas of fluctuance over the malleolus, draining serosanguinous and slightly purulent drainage, starting to have a fungating appearance. No odor. Scabs present to both feet.) Extremities: positive: Full ROM, No pedal edema Neurologic/Psychiatric: positive: Oriented x3 - Lab Results Fish Bones: 11/18/20 05:36 11/18/20 05:36 Other Labs: Lab Results x24hrs 11/18/20 11/18/20 Range/Units 05:36 05:36 WBC 6.4 (4.8-10.8) x10^3/uL RBC 4.57 L (4.70-6.10) 10^6/uL Hgb 13.9 L (14.0-18.0) g/dL Hct 44.1 (42.0-52.0) % MCV 96.5 H (80.0-94.0) fL MCH 30.4 (27.0-31.0) pg MCHC 31.5 L (32.0-36.0) g/dL RDW 12.3 (12.0-15.0) % Plt Count 259 (130-450) 10^3/uL MPV 9.4 (7.4-11.4) fL Neut # (Auto) 4.5 (1.5-6.6) 10^3/uL Lymph # (Auto) 1.1 L (1.5-3.5) 10^3/uL [place] # (Auto) 0.5 (0.0-1.0) 10^3/uL Eos # (Auto) 0.3 (0.0-0.7) 10^3/uL Baso # (Auto) 0.1 (0.0-0.1) 10^3/uL Absolute Nucleated RBC 0.00 x10^3/uL Nucleated RBC % 0.0 /100WBC Sodium 138 (135-145) mmol/L Potassium 4.6 (3.5-5.0) mmol/L Chloride 106 (101-111) mmol/L Carbon Dioxide 24 (21-32) mmol/L Anion Gap 8.0 (6-13) BUN 26 H (6-20) mg/dL Creatinine 1.1 (0.6-1.2) mg/dL Estimated GFR (MDRD) 64 L (>89) Glucose 107 H (70-100) mg/dL Calcium 8.4 L (8.5-10.3) mg/dL ABX Reporting Has patient been on IV antibiotics over the past 48 hours?: Yes Sepsis Event Note (H) - Evaluation Current Stage of Sepsis: Ruled out Assessment/Plan - Problem List (1) Abscess Impression: Pt reporting pain to the ankle region since October, has been seen twice prior to admission. Somewhat improved with antibiotics, though still with pain when ambulating. Areas of fluctuance noted around the malleolus with continued erythema and pain. Currently draining serosanguinous and slightly purulent drainage. No odor. Surrounding cellulitis has improved. Wound culture growing MSSA, antibiotics transitioned from Vancomycin. The appearance of the skin is slightly irregular, will consult General Surgery for further I&D and punch biopsy of the area due to concern that this may be a squamous cell carcinoma rather than an abscess. 1. Daily dry dressing change with PRN change for soiling/saturation 2. IV abx 3. General Surgery consult for I&D and punch biopsy (2) Cellulitis Impression: Improved. Swelling, pain and erythema have improved. Now reports pain only with ambulation related to the abscess. 1. IV antibiotics 2. Monitor erythema 3. Elevation for edema management 4. Daily CBC Qualifiers: Site of cellulitis: extremity Site of cellulitis of extremity: lower extremity Laterality: left Qualified Code(s): L03.116 - Cellulitis of left lower limb (3) Hypertension Impression: Stable. Hypertensive this morning to SBP 150s, may be pain related. EKG showing sinus bradycardia with a left bundle branch block, HR remains 40s-50s. Qualifiers: Hypertension type: unspecified secondary hypertension Qualified Code(s): I15.9 - Secondary hypertension, unspecified; I15 - Secondary hypertension
[2020-11-18] MEDS: polyethylene glycoL 3350 17 GM PACKET PO SCH (10:03)
[2020-11-18] MEDS: DOCUSATE SODIUM 250 MG CAPSULE PO SCH (10:03)
[2020-11-18] MEDS: ENOXAPARIN 40 MG/0.4 ML SYRINGE SUBQ SCH (10:04)
[2020-11-18] MEDS: SENNA 8.6 MG TABLET PO SCH (10:04)
[2020-11-18] MEDS ORDERED: LIDOCAINE 1%-EPI 1:100000 20 ML MDV SUBQ ONE (12:11)
[2020-11-18] MEDS: CLINDAMYCIN 150 MG CAPSULE PO SCH (21:19)
[2020-11-18] MEDS: ACETAMINOPHEN 325 MG TABLET PO PRN (21:21)
[2020-11-19 05:11] LABS: BASOPHILS # (AUTO) 0.1 10^3/uL (0.0-0.1); EOSINOPHILS # (AUTO) 0.3 10^3/uL (0.0-0.7); EOSINOPHILS % (AUTO) 4.5 %; HGB - HEMOGLOBIN 13.7 g/dL (14.0-18.0); LYMPHOCYTES # (AUTO) 1.2 10^3/uL (1.5-3.5); LYMPHOCYTES % (AUTO) 17.9 %; MEAN CORPUSCULAR HEMOGLOBIN 30.6 pg (27.0-31.0); MEAN CORPUSCULAR HGB CONC 31.9 g/dL (32.0-36.0); MEAN PLATELET VOLUME 9.3 fL (7.4-11.4); MONOCYTES # (AUTO) 0.6 10^3/uL (0.0-1.0); MONOCYTES % (AUTO) 8.8 %; NEUTROPHILS # (AUTO) 4.5 10^3/uL (1.5-6.6); NEUTROPHILS % (AUTO) 67.4 %; PLT - PLATELET COUNT 262 10^3/uL (130-450); RED BLOOD COUNT 4.48 10^6/uL (4.70-6.10); RED CELL DISTRIBUTION WIDTH 12.1 % (12.0-15.0); WHITE BLOOD COUNT 6.7 x10^3/uL (4.8-10.8)
[2020-11-19 05:21] LABS: CALCIUM 8.5 mg/dL (8.5-10.3); POTASSIUM 4.8 mmol/L (3.5-5.0)
[2020-11-19] MEDS: CLINDAMYCIN 150 MG CAPSULE PO SCH (05:44)
[2020-11-19 07:38] VITALS: BP 155/48
[2020-11-19] MEDS: polyethylene glycoL 3350 17 GM PACKET PO SCH (08:05)
[2020-11-19] MEDS: SENNA 8.6 MG TABLET PO SCH (08:05)
[2020-11-19] MEDS: ACETAMINOPHEN 325 MG TABLET PO PRN (08:06)
[2020-11-19] MEDS: DOCUSATE SODIUM 250 MG CAPSULE PO SCH (08:07)
[2020-11-19] MEDS: SODIUM CHLORIDE FLUSH 0.9% 10 ML SYRINGE IVP SCH (08:08)
[2020-11-19] MEDS: ENOXAPARIN 40 MG/0.4 ML SYRINGE SUBQ SCH (08:08)
--- NOTE | 2020-11-19 10:11 | Discharge Plan ---
Discharge Plan Problem Reviewed?: Yes Disposition: Home, Self Care Condition: Stable Prescriptions: Clindamycin [Cleocin] 300 mg PO Q8HR #12 cap Lactobacillus Acidophilus [Probiotic Acidophilus] 1 each PO BID #28 tablet Activity Restrictions: Wt Bearing as Tolerated Shower Restrictions: No (do not soak ankle in tub, can shower and keep clean and dry) Driving Restrictions: No Assistance Devices: Crutches Health Concerns: You presented to the hospital with redness, tenderness, that was getting worse over 2 days. This problem started in October when you noticed that there was a nickel size, slightly tender, red lesion on your left ankle, over the bone. It was starting to hurt. So you went to the walk-in clinic and they did an x-ray and the x-ray was negative for bone fracture. The nickel size lesion was getting bigger and more tender and more hot. So you were then seen in the emergency room 11/14/2020 and diagnosed with cellulitis. After being on antibiotics for 2 days, the redness, pain, and heat continued to spread and were now up your leg. You came back to the emergency room and we diagnosed you a cellulitis that it failed outpatient therapy with pills. We started you on intravenous antibiotics. We initially treated you as methicillin-resistant staph aureus. But the culture came back as staph aureus that was sensitive to regular antibiotics and we switched you to regular antibiotics. You have done well with those. The redness and swelling have abated considerably. However you still continue to have some redness and heat on the top of your foot and ankle that is slowly getting better. The top of the skin over the bone on the side of the ankle is still quite tender with swelling/redness. Because your ankle skin was not looking normal, we had Dr. Raissa Duggan from general surgery do a biopsy. We do think you may have a skin cancer which caused your skin to breakdown which then in turn caused your skin infection. Plan of Treatment: 1. Keep your ankle clean and dry. You can take a shower, but do not soak it in a tub or hot tub. If you want to soak your ankle in some Epson salts for half an hour or so that is okay. But the water has to be clean, Epsom salts added. 2. Complete antibiotic therapy with clindamycin. You have 4 more days. Because antibiotics can disrupt the balance of the bacteria in your bowel, we recommend that you take a probiotic twice a day for the next week. 3. Please see Dr. Raissa Duggan in follow-up. She will need to give you the biopsy results. Look at the skin on your ankle. And she may need to schedule you for further excision if it ends up being a skin cancer. 4. We had physical therapy see you before you left the hospital to teach you how to use crutches. That is in case it hurts you to walk on that ankle. 5. Because it is painful to walk on the ankle, you are probably spending more time sitting or laying down. That is understandable. But at least every 2 hours stand up. Rotate your ankle, and push your toes to the ground and back up again to make your calf muscles work. This will reduce your risk of blood clot in the leg. 6. You do not have a regular doctor. You have been very healthy and have not needed 1. Unfortunately, you will need to establish yourself with a primary care provider. You will find it useful for medical problems down the road. And they can then follow-up with you and prescribe your medications as needed without you having to go to the walk-in clinic. Care Goals: To have complete healing of the left ankle skin infection. To return to baseline walking and not to have any pain. Assessment: Patient will follow through. He states that he understands the care goals No Smoking: If you smoke, Please STOP! Call for help. Follow-up with: Sondra Duggan MD [Provider Admit Priv/Credential] -
--- NOTE | 2020-11-19 10:14 | DISCHARGE SUMMARY ---
Discharge Summary Admit Date: 11/16/20 Discharge Date: 11/19/20 Discharging Provider: Ann Marie Lewis Code Status: Attempt Resuscitation Condition at Discharge: Stable Discharge Disposition: 01 Home, Self Care - DIAGNOSES Discharge Diagnoses with Status of Each Condition: (1) CutaneousAbscess Impression: Improved. Pt reporting pain to the ankle region since October, has been seen twice prior to admission. Somewhat improved with antibiotics, though still with pain when ambulating. He was seen by General Surgery yesterday who did not feel further I&D was indicated. The area is freely draining and appears to have the beginnings of a fungating wound. Given concern for a squamous cell carcinoma, a punch biopsy was performed by Dr. Duggan and the sample sent to pathology. Pt will follow up outpatient with Dr. Duggan. 1. Daily dry dressing change with PRN change for soiling/saturation 2. Oral abx (last dose 11/23) 3. Probiotics while on abx 4. Follow up with Dr. Duggan once pathology results have returned, 1-2 weeks post discharge 5. Dry dressing/wound care instructions teaching from nursing (2) Cellulitis Impression: Improved. Swelling, pain and erythema have improved. Now reports pain only with ambulation related to the abscess. Transitioned to oral abx yesterday, tolerating well without n/v. Started on probiotics while on the oral abx. 1. Oral antibiotics 2. Probiotics while taking antibiotics 3. Elevation for edema management (4) Neoplasm of uncertain behavior, left lateral malleolus Impression: Stable. Has the appearance of a squamous cell carcinoma. Punch biopsy performed by Dr. Duggan from General Surgery yesterday, Pt will follow up in her clinic in 1-2 weeks. (3) Hypertension Impression: Stable. Periodically hypertensive this admission, may be pain related. EKG showing sinus bradycardia with a left bundle branch block, HR remains 40s-50s. - HPI History of Present Illness: 80 year old male with no significant past medical history presented to the ED this morning reporting 6 weeks of left ankle swelling and gradually progressing erythema. He was seen in the ED 2 days ago, diagnosed with cellulitis and started on oral antibiotics. He reports the erythema has continued to worsen and increase since then, and pain and swelling increased. Last night he noticed a blister over the left ankle that then "popped". He covered the area with gauze and then laid on it to stop the blood. He brought himself to the ED for further evaluation. Denies fevers, chills, SOB, cough, n/v. Does have increased pain to the area, worse with walking and better when resting. Denies any animal bites or trauma to the area, unsure what started the skin breakdown. In the ED an area of fluctuance was I&D'd and expressed a small amount of pus. The drainage currently on the bandage is serosanguinous. He was admitted for IV antibiotics given failure of outpatient management, evidenced by increasing erythema, swelling and pain with new loculation. - CONSULTS | PROCEDURES Consultations: Social Work, General Surgery Procedures: Punch biopsy - HOSPITAL COURSE Hospital Course: Pt was admitted with cellulitis and an abscess to the left lateral malleolus. It was I&D'd in the ER and has since been draining serosanguinous drainage. The cellulitis improved with IV antibiotics and he was transitioned to orals on 11/18, which he has tolerated well. He was periodically hypertensive but did not receive any medications as the HTN may have been caused by pain. His WBC was normal throughout his stay and he remained afebrile. His HR was 40-50s and an EKG revealed sinus bradycardia with a left bundle branch block. His pain and swelling have decreased but he continues to have pain with ambulation. As the swelling decreased the area of the I&D site revealed three open wounds that appe ared irregular for an abscess and more concerning for a squamous cell. General Surgery was consulted and on 11/18 performed a punch biopsy of the area. Physical Therapy was consulted on the day of discharge to help him use crutches given his pain with ambulation. He was discharged home on oral antibiotics, with probiotics, and will follow up in the General Surgery Clinic with Dr. Duggan once pathology has returned. - ALLERGIES Allergies/Adverse Reactions: Allergies Allergy/AdvReac Type Severity Reaction Status Date / Time codeine AdvReac Nausea Verified 11/16/20 08:35 - MEDICATIONS Home Medications: Ambulatory Orders Medication Instructions Recorded Confirmed Mupirocin 22 gm TP [id number] 7 Days #1 11/14/20 11/16/20 bottle Clindamycin [Cleocin] 300 mg PO Q8HR #12 cap 11/19/20 Lactobacillus Acidophilus 1 each PO BID #28 tablet 11/19/20 [Probiotic Acidophilus] - PHYSICAL EXAM AT DISCHARGE General Appearance: positive: No acute distress, Alert Eyes Bilateral: positive: Normal inspection, PERRL ENT: positive: ENT inspection nml, No signs of dehydration Neck: positive: Nml inspection Respiratory: positive: Chest non-tender, No respiratory distress, Breath sounds nml Cardiovascular: positive: Regular rate & rhythm, No murmur, No gallop, Bradycardia Peripheral Pulses: positive: 2+ Abdomen: positive: Non-tender, No organomegaly, Nml bowel sounds, No distention Skin: positive: Other (left lateral malleolus with three open areas with beginnings of fungating wound appearance. surrounding cellulitis improved) Extremities: positive: Full ROM, Nml appearance, Other (L fusing machine tender with ambulation and palpation) Neurologic/Psychiatric: positive: Oriented x3 - LABS Result Diagrams: 11/19/20 04:40 11/19/20 04:40 - SEPSIS Current Stage of Sepsis: Ruled out - TIME SPENT Time Spent in Discharge (Minutes): 35
[2020-11-19] MEDS ORDERED: CLINDAMYCIN 150 MG CAPSULE PO SCH (12:00)
--- NOTE | 2020-12-06 13:43 | CONSULTATION NOTE ---
Referring Provider Consult Date: 11/18/20 Chief Complaint - Chief Complaint Chief Complaint: Left lower extremity lesion History of Present Illness - Admitted From Admitted From:: ED - History Obtained From Exam Limitations: None - History of Present Illness HPI Comment/Other: 80 year old male with no significant past medical history presented to the ED this morning reporting 6 weeks of left ankle swelling and gradually progressing erythema. He was seen in the ED 2 days ago, diagnosed with cellulitis and started on oral antibiotics. He reports the erythema has continued to worsen and increase since then, and pain and swelling increased. Last night he noticed a blister over the left ankle that then "popped". He covered the area with gauze and then laid on it to stop the blood. He brought himself to the ED for further evaluation. Denies fevers, chills, SOB, cough, n/v. Does have increased pain to the area, worse with walking and better when resting. Denies any animal bites or trauma to the area, unsure what started the skin breakdown. In the ED an area of fluctuance was I&D'd and expressed a small amount of pus. Upon further examination, he was noted to have a thickened lesion over his right ankle with some concern for possible skin cancer or other pathologic process. I have been consulted regarding possible biopsy of the area. Tim says he is much better than at admission. He reports his ankle and leg are still sore but "not bad" History - Past Medical History Cardiovascular: reports: None Respiratory: reports: None Neuro: reports: None Endocrine/Autoimmune: reports: None, HyPOthyroidism GI: reports: None : reports: None HEENT: reports: None Psych: reports: None Musculoskeletal: reports: None Derm: reports: None MRSA Hx?: No - Past Surgical History General: reports: Colonoscopy HEENT: reports: Tonsil/Adenoidectomy - Family & Social History Family History: Mother: , Father: Family History Comment/Other: Pt does not remember his parents' medical history but believes they were both healthy up until time of . His daughter at approximately age 45 of either CHF or emphysema, he cannot remember which. Living arrangement: At home Living Situation: Alone Social History Notes: Lives alone in a cottage, no pets. from his for >40 years, believes she is currently living in [place]. 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 Quit smoking >40 years ago, previously smoked tobacco approx 1/2 PPD for 10 years. Rarely drinks alcohol and none lately. Denies illicit drug use. - Substance History Use: Uses substance without health or social issues: NONE Abuse: Recurrent use of substance despite neg consequences: NONE - POLST Patient has POLST: No POLST Status: Full Code Meds/Allgy - Home Medications Home Medications: Ambulatory Orders Medication Instructions Recorded Confirmed Mupirocin 22 gm TP QDBREAKFAST 7 Days #1 11/14/20 11/16/20 bottle Clindamycin [Cleocin] 300 mg PO Q8HR #12 cap 11/19/20 Lactobacillus Acidophilus 1 each PO BID #28 tablet 11/19/20 [Probiotic Acidophilus] - Allergies Allergies/Adverse Reactions: Allergies Allergy/AdvReac Type Severity Reaction Status Date / Time codeine AdvReac Nausea Verified 11/16/20 08:35 Exam - Physical Exam Peripheral Pulses: positive: 0 Extremities: positive: Pedal edema (Edema and erythema is noted involving his left leg with the nidus of infection over the left lateral ankle. There is a thickened area of skin approximatly 2 cm in diameter. No palpable fluctuance.) Conclusion and Plan - Diagnosis Diagnosis: Left leg lesion - Plan Plan: I agree with recommendation for biopsy. I have discussed the risks and benefits of bedside biopsy with the patient and he is in agreement with this plan.
--- NOTE | 2020-12-06 13:54 | PROCEDURE REPORT ---
Hospitalist Procedure Note - Procedure Note Procedure Note: After obtaining informed consent, the left foot and ankle were prepped and draped in the standard surgical fashion. Following infiltration with local anesthetic to create a field block, a 15 blade scalpel was used to remove a 1 x 0.5 cm elliptical segment of tissue from the center of the lesion. It was placed in formalin and submitted to pathology. The wound was checked for hemostasis and a dry dressing applied. The patient tolerated the procedure well.
== END 2020-11-19 13:05 | disposition home or self-care (01) | DRG 603 ==
LOC: ED 08:27 → MS2 10:19
PROVIDERS: ADMIT Specialist; ATTEND Specialist
PROC: 0HBLXZX Excision of Left Lower Leg Skin, External Approach, Diagnostic (ICD-10-PCS; principal; 2020-11-18)
DX: L03.116 Cellulitis of left lower limb (principal); I73.9 Peripheral vascular disease, unspecified; E03.9 Hypothyroidism, unspecified; Z87.891 Personal history of nicotine dependence; Z20.822 Contact with and (suspected) exposure to COVID-19; L02.416 Cutaneous abscess of left lower limb; B95.61 Methicillin susceptible Staphylococcus aureus infection as the cause of diseases classified elsewhere; I10 Essential (primary) hypertension; D48.5 Neoplasm of uncertain behavior of skin
CPT/HCPCS: 36415; 80048; 80053; 85025; 85651; 86140; 87040; 87070; 87181; 87205; 87631; 88305; 93005; 96365; 96375; 97161; 99284; 99285; A9270; J0690; J1650; J3370; J7120; 0202U

== ENCOUNTER 2020-12-06 14:20 | Outpatient (CLI) | payer MEDICARE, OTHER | END 2020-12-06 23:59 | disposition home or self-care (01) | LOC: LAB.R 14:20 | PROVIDERS: ATTEND Internal Medicine | DX: L03.116 Cellulitis of left lower limb (principal) | CPT/HCPCS: 81599; 87070; 87075; 87205 ==

== ENCOUNTER 2021-01-03 09:43 | Outpatient (CLI) | payer MEDICARE, OTHER ==
[2021-01-03 09:53] LABS: CREATININE 1.6 mg/dL (0.6-1.2)
[2021-01-03] MEDS ORDERED: IOPAMIDOL-300 100 ML VIAL ONE (10:02)
[2021-01-03] MEDS ORDERED: IOPAMIDOL-300 100 ML VIAL IVP ONE (11:15)
--- NOTE | 2021-01-03 12:11 | CT Report ---
PROCEDURE: LOWER EXTREMITY W - LT INDICATIONS: LEFT LEG CELLULITIS TECHNIQUE: After the administration of IV contrast, 1 mm axial images obtained through the left ankle with sagittal and coronal reformations. Bone and soft tissue algorithm performed. COMPARISON: None. FINDINGS: No acute fracture identified. There is severe circumferential skin thickening and subcutaneous edema. Scattered superficial fascial fluid. No definite subfascial changes seen. No subcutaneous soft tissu e gas. No discrete loculated rim-enhancing abscess identified. Scattered subchondral sclerosis and spurring. Plantar and posterior calcaneal spurring is also prese nt. There is a subchondral defect measuring 5 mm involving the talar head on image 45/7, technically age indeterminate. The visualized vessels appeared contrast opacified and patent. There are scattered varices. No focal bone destruction is seen. IMPRESSION: Extensive lower leg circumferential superficial cellulitis. No discrete abscess seen. No focal bone d estruction to suggest osteomyelitis. If there is persistent clinical diagnostic uncertainty, recommen d short interval follow-up radiographs after treatment for further assessment. Reviewed by: Garth Coe MD on 01/03/2021 12:10 PM PDT Approved by: Garth Coe MD on 01/03/2021 12:10 PM PDT Station ID: [id number]
== END 2021-01-03 09:44 | disposition home or self-care (01) ==
LOC: LAB 09:43
PROVIDERS: ATTEND Internal Medicine
DX: R03.0 Elevated blood-pressure reading, without diagnosis of hypertension (principal); L03.116 Cellulitis of left lower limb
CPT/HCPCS: 36415; 73701; 82565; Q9967

== ENCOUNTER 2022-05-28 11:24 | Inpatient (IN) | payer MEDICARE, OTHER ==
[2022-05-28] MEDS ORDERED: SODIUM CHLORIDE 0.9% 1,000 ML IV STA ×3 (11:31→22:21)
--- NOTE | 2022-05-28 11:35 | ED Physician Documentation ---
History of Present Illness - Stated complaint Stated Complaint: FOUND DOWN - Additonal information Additional information: 81-year-old male presents emergency department via EMS after being found down at his apartment. His landlord did a welfare check on him because he failed to pay rent and he is usually timely. Landlord found him on his back. Patient reported that he had tripped about 5 days ago and had been unable to get up. EMS describes the house is fairly disheveled. There was stool throughout the home and on the toilet. Patient states he is neither eaten or drink for 5 days appears chronically ill and severely malnourished. Patient is alert and oriented x4. Denies any pertinent past medical history. Denies that he takes any prescribed medications. Review of Systems Constitutional: denies: Fever, Chills Eyes: reports: Reviewed and negative Ears: reports: Reviewed and negative Throat: reports: Reviewed and negative Cardiac: reports: Reviewed and negative Respiratory: reports: Reviewed and negative GI: reports: Reviewed and negative Skin: denies: Rash, Lesions Musculoskeletal: reports: Reviewed and negative Neurologic: reports: Generalized weakness. denies: Confused, Headache, Head injury, LOC PD PAST MEDICAL HISTORY - Past Medical History Cardiovascular: None Respiratory: None Neuro: None Endocrine/Autoimmune: None, HyPOthyroidism GI: None : None HEENT: None Psych: None Musculoskeletal: None Derm: None - Past Surgical History General: Colonoscopy HEENT: Tonsil/Adenoidectomy - Present Medications Home Medications: Ambulatory Orders Medication Instructions Recorded Confirmed Mupirocin 22 gm TP QDBREAKFAST 7 Days #1 11/14/20 11/16/20 bottle Clindamycin [Cleocin] 300 mg PO Q8HR #12 cap 11/19/20 Lactobacillus Acidophilus 1 each PO BID #28 tablet 11/19/20 [Probiotic Acidophilus] - Allergies Allergies/Adverse Reactions: Allergies Allergy/AdvReac Type Severity Reaction Status Date / Time codeine AdvReac Nausea Verified 05/28/22 11:31 - Social History Does the pt smoke?: No Smoking Status: Former smoker Does the pt drink ETOH?: No Does the pt have substance abuse?: No - Immunizations Immunizations are current?: No Immunizations: TDAP >10years/unknown - POLST Patient has POLST: No POLST Status: Full Code PD ED PE EXPANDED - General General: Other (Cachectic thin appearance. Malnourished.) - Neck Neck: Supple w/out meningeal sx. No: Adenopathy - Cardiac Cardiac: Regular Rate, Radial strong equal, Pedal strong equal, Cap refill < 2 sec. No: Murmur Present - Respiratory Respiratory: Clear to ausultation joseph. No: Distress, Labored - Abdomen Abdomen: Normal Bowel sounds. No: Tender to palpation - Derm Derm: Normal color, Warm and dry, Other (Mild erythema of both hips right knee and sacrum without skin breakdown. No obvious source tears or lesions) - Extremities Extremities: Normal. No: Deformity, Tenderness - Neuro Neuro: Alert and Oriented X 3, CNII-XII intact, Other (able to elevate all extremities off bed, but not agaisnt resistance) - GCS Eye Opening: Spontaneous Motor: Obeys Commands Verbal: Oriented Total: 15 Results - Vitals Vitals: Vital Signs - 24 hr 05/28/22 05/28/22 05/28/22 11:31 13:04 14:00 Temperature 36.6 C Heart Rate 86 72 71 Respiratory 18 22 28 H Rate Blood Pressure 137/72 H 117/55 L 128/53 L O2 Saturation 99 97 99 05/28/22 05/28/22 05/28/22 15:00 15:30 16:00 Temperature Heart Rate 68 70 72 Respiratory 18 18 17 Rate Blood Pressure 129/59 L 114/57 L 116/51 L O2 Saturation 98 97 98 05/28/22 05/28/22 05/28/22 16:47 17:05 19:06 Temperature Heart Rate 72 92 78 Respiratory 18 14 25 H Rate Blood Pressure 101/48 L 114/52 L 101/51 L O2 Saturation 97 98 97 05/28/22 05/28/22 05/28/22 20:43 21:25 22:00 Temperature Heart Rate 76 76 80 Respiratory 21 18 23 Rate Blood Pressure 103/46 L 112/58 L O2 Saturation 97 96 Oxygen O2 Source Room air - EKG (time done) 1139 Rate: Rate (enter#) (80) Rhythm: NSR [place]: Normal Intervals: LBBB Compare to prior EKG: Unchanged from prior EKG Computer interpretation: Agree with computer - Labs Labs: Laboratory Tests 05/28/22 05/28/22 05/28/22 11:50 11:50 11:50 WBC 9.6 RBC 5.01 Hgb 12.7 L Hct 42.1 MCV 84.0 MCH 25.3 L MCHC 30.2 L RDW 15.9 H Plt Count 275 MPV 9.4 Neut # (Auto) 8.1 H Lymph # (Auto) 0.7 L [place] # (Auto) 0.7 Eos # (Auto) 0.0 Baso # (Auto) 0.0 Absolute Nucleated RBC 0.00 Nucleated RBC % 0.0 PT 14.3 H INR 1.3 H Sodium 140 Potassium 3.7 Chloride 100 L Carbon Dioxide 21 Anion Gap 19.0 H BUN 41 H Creatinine 1.0 Estimated GFR (MDRD) 72 L Glucose 126 H Calcium 9.3 Total Bilirubin 1.2 H AST 19 ALT 16 Alkaline Phosphatase 69 Total Creatine Kinase 87 Total Protein 6.8 Albumin 2.7 L Globulin 4.1 Albumin/Globulin Ratio 0.7 L Lipase 26 TSH Urine Color Urine Clarity Urine pH Ur Specific [place] Urine Protein Urine Glucose (UA) Urine Ketones Urine Occult Blood Urine Nitrite Urine Bilirubin Urine Urobilinogen Ur Leukocyte Esterase Urine RBC Urine WBC Ur Epithelial Cells Ur Squamous Epith Cells Urine Bacteria Urine Casts Ur Microscopic Review Urine Culture Comments 05/28/22 05/28/22 11:50 12:07 WBC RBC Hgb Hct MCV MCH MCHC RDW Plt Count MPV Neut # (Auto) Lymph # (Auto) [place] # (Auto) Eos # (Auto) Baso # (Auto) Absolute Nucleated RBC Nucleated RBC % PT INR Sodium Potassium Chloride Carbon Dioxide Anion Gap BUN Creatinine Estimated GFR (MDRD) Glucose Calcium Total Bilirubin AST ALT Alkaline Phosphatase Total Creatine Kinase Total Protein Albumin Globulin Albumin/Globulin Ratio Lipase TSH 1.77 Urine Color DARK YELLOW Urine Clarity CLEAR Urine pH 6.0 Ur Specific [place] 1.025 Urine Protein 30 H Urine Glucose (UA) NEGATIVE Urine Ketones 15 H Urine Occult Blood LARGE H Urine Nitrite NEGATIVE Urine Bilirubin NEGATIVE Urine Urobilinogen 1 (NORMAL) Ur Leukocyte Esterase NEGATIVE Urine RBC TNTC H Urine WBC 6-10 H Ur Epithelial Cells MOD Transitional H Ur Squamous Epith Cells FEW Squamous Urine Bacteria Few Urine Casts 6-10 Hyaline Casts Ur Microscopic Review INDICATED Urine Culture Comments NOT INDICATED - Rads (name of study) cxr Radiology: Final report received (Decreased right lung volume with small moderate right pleural effusion and right lung atelectasis/infiltrates. No gross pneumothorax. Left lung is clear) PD MEDICAL DECISION MAKING - ED course Complexity details: reviewed old records, reviewed results, re-evaluated patient, d/w patient, d/w family ED course: 81-year-old male was brought to the emergency department via EMS after his landlord did a welfare check on him as he had failed to pray his May rent. Patient reported that he had tripped on the ground and has been down for about 5 days unable to get up. EMS describes a very disheveled seen at the home. Patient presents malnourished cachectic appearing. He is covered in feces. Patient presents with no focal neurodeficits. His vital signs are unremarkable for age. We did obtain screening labs and do not find any admittable diagnoses. He is mildly dehydrated with an elevated BUN but he has preserved renal function. His CK is not elevated. Urine appears quite dehydrated and dark but no signs of infection. He does have multiple areas on both hips and his sacral area with mild redness but no induration or obvious skin breakdown. Chest x-ray does show a right sided pneumonia but patient is not hypoxic or tachypneic. He is given ceftriaxone and azithromycin here in the emergency department And started on scheduled dosing of 5 days of azithromycin as well as 10 days of Augmentin. I will also request twice daily albuterol nebulizers. The finding of pneumonia by itself with a curb 65 score that is positive for age only does not allow the patient to be admitted to the hospital and the recommendation is for outpatient treatment Unfortunately he is too weak and can not get oob without multiple people assisting and has no next of kin. Without a safe disposition, he will board in the emergency department pending social work evaluation. PT will be signed out to my night time colleague Dr. Alex to follow up on any night time events Departure - Departure Clinical Impression: Generalized weakness, Dehydration Pneumonia Qualifiers: Pneumonia type: due to unspecified organism Laterality: right Lung location: unspecified part of lung Qualified Code(s): J18.9 - Pneumonia, unspecified organism Malnourished Qualifiers: Malnutrition type: unspecified type Qualified Code(s): E46 - Unspecified protein-calorie malnutrition
--- NOTE | 2022-05-28 11:51 | XRAY Report ---
PROCEDURE: Chest 1 View X-Ray INDICATIONS: chest pain TECHNIQUE: One view of the chest was acquired. COMPARISON: None. FINDINGS: Surgical changes and devices: Surgical clips are noted in gallbladder fossa. Lungs and pleura: Decreased right lung volume with moderate right pleural effusion is seen. Underlyi ng pulmonary infiltrate/atelectasis also likely present. Left lung is clear. No pneumothorax. Mediastinum: Mediastinal contours appear normal. Heart size is normal. Bones and chest wall: No suspicious bony lesions. Overlying soft tissues appear unremarkable. IMPRESSION: Decreased right lung volume with small to moderate right pleural effusion and right lung atelectasis/ infiltrates. No gross pneumothorax. Left lung is clear. Reviewed by: Anderson Skaggs MD on 05/28/2022 11:49 AM PDT Approved by: Anderson Skaggs MD on 05/28/2022 11:49 AM PDT Station ID: [id number]
[2022-05-28 11:55] LABS: BASOPHILS % (AUTO) 0.1 %; EOSINOPHILS % (AUTO) 0.1 %; HCT - HEMATOCRIT 42.1 % (42.0-52.0); HGB - HEMOGLOBIN 12.7 g/dL (14.0-18.0); LYMPHOCYTES # (AUTO) 0.7 10^3/uL (1.5-3.5); LYMPHOCYTES % (AUTO) 7.6 %; MEAN CORPUSCULAR HEMOGLOBIN 25.3 pg (27.0-31.0); MEAN CORPUSCULAR HGB CONC 30.2 g/dL (32.0-36.0); MEAN PLATELET VOLUME 9.4 fL (7.4-11.4); MONOCYTES # (AUTO) 0.7 10^3/uL (0.0-1.0); MONOCYTES % (AUTO) 6.9 %; NEUTROPHILS # (AUTO) 8.1 10^3/uL (1.5-6.6); NEUTROPHILS % (AUTO) 84.9 %; PLT - PLATELET COUNT 275 10^3/uL (130-450); RED BLOOD COUNT 5.01 10^6/uL (4.70-6.10); RED CELL DISTRIBUTION WIDTH 15.9 % (12.0-15.0); WHITE BLOOD COUNT 9.6 x10^3/uL (4.8-10.8)
[2022-05-28 12:02] LABS: INR 1.3 (0.8-1.2); PT - PROTHROMBIN TIME 14.3 secs (9.9-12.6)
[2022-05-28 12:09] LABS: ALBUMIN 2.7 g/dL (3.2-5.5); ALBUMIN/GLOBULIN RATIO 0.7 (1.0-2.2); BILIRUBIN,TOTAL 1.2 mg/dL (0.2-1.0); CALCIUM 9.3 mg/dL (8.5-10.3); POTASSIUM 3.7 mmol/L (3.5-5.0); TOTAL PROTEIN 6.8 g/dL (6.7-8.2)
[2022-05-28 12:14] LABS: GLUCOSE, URINE (UA) NEGATIVE (NEGATIVE); KETONES,URINE (UA) 15 mg/dL (NEGATIVE); LEUKOCYTE ESTERASE, URINE NEGATIVE (NEGATIVE); NITRITE,URINE NEGATIVE (NEGATIVE); OCCULT BLOOD,URINE LARGE (NEGATIVE); PROTEIN,URINE 30 mg/dL (NEGATIVE); UROBILINOGEN,URINE 1 (NORMAL) E.U./dL (NORMAL)
[2022-05-28 12:21] LABS: BILIRUBIN,URINE NEGATIVE (NEGATIVE); CLARITY,URINE CLEAR (CLEAR); ICTOTEST,URINE NEGATIVE
[2022-05-28] MEDS ORDERED: cefTRIAXone 1 GM VIAL IVP STA (12:23)
[2022-05-28] MEDS ORDERED: AZITHROMYCIN INJ 500 MG in SODIUM CHLORIDE 0.9% 250 ML IV STA (12:23)
[2022-05-28 12:46] LABS: BACTERIA,URINE Few /HPF (None Seen); CASTS, URINE 6-10 Hyaline Casts /LPF; EPITHELIAL CELLS,UR MOD Transitional /HPF (<= Few); RBC,URINE TNTC /HPF (0-5); SQUAMOUS EPITHELIAL CELL,UR FEW Squamous (<= Few)
[2022-05-28] MEDS: AMOX/CLAV 875 MG/125 MG TABLET PO SCH ×2 (21:10→22:08)
[2022-05-28] MEDS: ALBUTEROL NEB 2.5 MG/3 ML INH SCH (21:24)
--- NOTE | 2022-05-29 00:46 | CT Report ---
PROCEDURE: Abdomen/Pelvis WO INDICATIONS: hematuria; gen weakness TECHNIQUE: Noncontrast 5 mm thick sections acquired from the diaphragms to the symphysis. 5 mm coronal and sagi ttal reformats were then performed. For radiation dose reduction, the following was used: automated exposure control, adjustment of mA and/or kV according to patient size. COMPARISON: None. FINDINGS: Image quality: Excellent. Lung bases:There is a small to moderate loculated right pleural effusion with nodular pleural thicke cristo. There is associated compressive atelectasis within the right lung base as well as likely relate d areas of consolidation in the right lower and middle lobes. The left lung is clear. Heart: Heart is normal in size. URINARY: Right Kidney and Ureter: No stones or hydronephrosis. No hydroureter. Left Kidney and Ureter: No stones or hydronephrosis. No hydroureter. Bladder:There is a Marie catheter within a partially distended urinary bladder. Its luminal gas with in the bladder is likely related to catheter placement. No stones. ABDOMEN: Liver: Noncontrast evaluation of the liver demonstrates no discrete mass. Gallbladder:Surgically absent. Biliary ducts: No biliary ductal dilatation. Pancreas: Unremarkable. Spleen: Normal in size. Adrenal Glands: No adrenal nodules. Stomach and Bowel: Stomach and small bowel loops are normal in caliber and wall thickness. The appen gerald is normal in appearance. There is moderate stool distention overall throughout the colon with mar ked distention in the rectosigmoid colon suggestive of constipation or stool impaction. Peritoneum: No abnormal intraperitoneal fluid. No free air. Ventral Wall: No hernia. Abdominal Nodes: No retroperitoneal or mesenteric adenopathy by size criteria. Vessels: Aorta and inferior vena cava are normal in size. PELVIS: Pelvic Organs: Unremarkable. Pelvic Nodes: No enlarged lymph nodes. Miscellaneous: No inguinal hernias identified. Bones: Visualized osseous structures demonstrate no suspicious focal lesions. IMPRESSION: 1. No evidence of nephrolithiasis or obstructive uropathy. 2. Small to moderate loculated right pleural effusion with nodular pleural thickening. Associated rig ht basilar compressive atelectasis demonstrated as well as lobulated areas of consolidation in the ri ght middle and lower lobes. The findings suspicious for neoplasm. Recommend further evaluation with d edicated contrast-enhanced chest CT when clinically feasible. 3. Moderate colonic stool distention with marked distention in the rectosigmoid colon suggestive of c onstipation with possible fecal impaction. Reviewed by: Ramana Rousseau MD on 05/29/2022 12:45 AM PDT Approved by: Ramana Rousseau MD on 05/29/2022 12:45 AM PDT Station ID: [id number]
[2022-05-29 06:30] LABS: HCT - HEMATOCRIT 39.7 % (42.0-52.0); LYMPHOCYTES # (AUTO) 0.8 10^3/uL (1.5-3.5); LYMPHOCYTES % (AUTO) 8.9 %; MEAN CORPUSCULAR HEMOGLOBIN 25.3 pg (27.0-31.0); MEAN CORPUSCULAR HGB CONC 30.2 g/dL (32.0-36.0); MEAN CORPUSCULAR VOLUME 83.6 fL (80.0-94.0); MEAN PLATELET VOLUME 8.9 fL (7.4-11.4); MONOCYTES # (AUTO) 0.5 10^3/uL (0.0-1.0); MONOCYTES % (AUTO) 5.4 %; NEUTROPHILS # (AUTO) 7.3 10^3/uL (1.5-6.6); NEUTROPHILS % (AUTO) 85.5 %; PLT - PLATELET COUNT 254 10^3/uL (130-450); RED BLOOD COUNT 4.75 10^6/uL (4.70-6.10); RED CELL DISTRIBUTION WIDTH 15.9 % (12.0-15.0); WHITE BLOOD COUNT 8.6 x10^3/uL (4.8-10.8)
[2022-05-29 06:43] LABS: ALBUMIN 2.5 g/dL (3.2-5.5); ALBUMIN/GLOBULIN RATIO 0.6 (1.0-2.2); BILIRUBIN,TOTAL 0.8 mg/dL (0.2-1.0); CALCIUM 8.9 mg/dL (8.5-10.3); CREATININE 0.8 mg/dL (0.6-1.2); POTASSIUM 3.2 mmol/L (3.5-5.0); TOTAL PROTEIN 6.4 g/dL (6.7-8.2)
[2022-05-29] MEDS ORDERED: SODIUM CHLORIDE 0.9% 1,000 ML IV STA (08:06)
[2022-05-29] MEDS: AMOX/CLAV 875 MG/125 MG TABLET PO SCH (08:08)
[2022-05-29] MEDS: ALBUTEROL NEB 2.5 MG/3 ML INH SCH (08:47)
[2022-05-29] MEDS ORDERED: AZITHROMYCIN 250 MG TABLET PO SCH (09:00)
[2022-05-29] MEDS ORDERED: AZITHROMYCIN INJ 500 MG in SODIUM CHLORIDE 0.9% 250 ML IV STA (11:14)
[2022-05-29] MEDS ORDERED: cefTRIAXone 1 GM VIAL IVP STA (11:14)
--- NOTE | 2022-05-29 13:22 | CT Report ---
PROCEDURE: CHEST W INDICATIONS: ? neiplasm seen on Ct abd CONTRAST: IV CONTRAST: Optiray 320 ml: 100 PO CONTRAST: *NO PO CONTRAST TECHNIQUE: After the administration of intravenous contrast, 1 mm axial images were acquired from the pulmonary apices through the posterior costophrenic angles. Axial 5 mm soft tissue kernel reconstructions were performed as well as 8 mm axial MIP and coronal and sagittal 5 mm reformations. For radiation dose reduction, the following was used: automated exposure control, adjustment of mA and/or kV according to patient size. COMPARISON: 05/28/2022 CT abdomen and pelvis FINDINGS: Image quality: Excellent. Lungs and pleura: The left lung is clear. No left pleural effusion. There are some micronodules, for example . Diffuse near circumferential right pleural thickening and loculated effusion. Suspected mass at the r ight base measuring 5.6 x 3.3 cm. There is also diffuse pleural nodularity compatible with pleural sp read. There is invasion through the chest wall, for example the right apex measuring 4 cm in thicknes s. There is also involvement of the adjacent ribs, with a pathologic fracture of the third rib. Mediastinum: Heart size is within normal limits. No aneurysm of the aorta. Mediastinal hilar adenopat hy, for example right paratracheal no (11/30) measures 13 mm in short axis. Bones and chest wall: Thyroid is within normal limits. No axillary adenopathy. Spondylotic changes. Age-indeterminate height loss of the T6 vertebral body. There are also endplate deformities. Abdomen: Separately dictated from yesterday's CT IMPRESSION: Right hemithorax findings highly suspicious for disseminated malignancy, most commonly lung cancer me tastatic to pleura, among other possibilities. Local invasion through the chest wall, with a patholog ic fracture of the right third rib. Mediastinal and hilar adenopathy. If tissue confirmation is necessary, this is amenable to percutaneous sampling. Age-indeterminate height loss of the T6 vertebral body. An underlying lesion could be occult on CT. Consider PET/CT for complete staging when clinically appropriate. Reviewed by: Afshin Rodriguez MD on 05/29/2022 1:21 PM PDT Approved by: Afshin Rodriguez MD on 05/29/2022 1:21 PM PDT Station ID: [id number]
--- NOTE | 2022-05-29 14:06 | ED Physician Documentation ---
ED Addendum - Addendum Addendum: 05/29/22 14:02 In brief this is an 81-year-old gentleman that presented to the emergency department now 24 hours ago after a fall at home in which she was unable to get up. His landlord did a welfare check and found him in a disheveled apartment covered in feces and urine. On presentation to the emergency department he appeared rather cachectic and very thin weighing just over 40 kg. He reportedly weighed 180 pounds about 2 years ago. This gentleman lives entirely alone and is unable now at this time to get out of bed walk or ambulate. Initial screening labs yesterday did not show any leukocytosis or worrisome electrolyte derangement kidney injury or findings of rhabdo myelosis. Subsequent CT imaging of the chest abdomen and pelvis has revealed that he has community-acquired pneumonia as well as metastatic Lung cancer. In addition to this the patient has been unable to tolerate swallowing food or liquid while here in the emergency department. This gentleman does not have the ability to return to independent living. Dr. Lewis our hospitalist has spoken with the patient. He has indicated to her that he would like to transition to comfort care measures but would like to get as strong as possible before then. Patient will be admitted to the hospital for further evaluation and treatment. 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
[2022-05-29] MEDS ORDERED: ONDANSETRON 4 MG/2 ML VIAL IVP PRN (14:15)
[2022-05-29] MEDS ORDERED: ONDANSETRON ODT 4 MG TABLET TL PRN (14:15)
[2022-05-29] MEDS ORDERED: SODIUM CHLORIDE FLUSH 0.9% 10 ML SYRINGE IVP PRN (14:15)
--- NOTE | 2022-05-29 14:25 | HISTORY & PHYSICAL EXAMINATION ---
Chief Complaint - Chief Complaint Chief Complaint: found down at home History of Present Illness - Admitted From Admitted From:: home>ED - History Obtained From Records Reviewed: [employer] [facility] and [facility] History obtained from: patient and EMR and "grandson" Exam Limitations: forgetful - History of Present Illness HPI Comment/Other: He is an 81-year-old gentleman who is rarely followed by primary care providers since he does not go to them. He used to see Saulo allred, and in the last year established himself with the walk in clinic on [address] for [facility]. He was seen in the walk-in clinic on November 27, 2021 complaining of pleuritic right axillary pain. He was examined for breast cancer and chest wall exam was negative, no axillary adenopathy found. He was placed on antibiotics and asked to come back if the pain continued and then they would refer him for a mammogram. No chest x-ray was done. He was referred for a mammogram. But he states that he got so tired and could not figure out a way to get the appointment and make it. So he never did the follow-up. The patient denies cough, fevers, sweats. He is a poor historian and I do not know if I can trust him. But he insists that he felt "fine" other than this armpit pain. He has been losing weight because he just does not want to eat. In April 2009 he was 179 pounds. December 2020 he was 152 pounds. January 2021 he was 147. In November 2021 he was 136 pounds at the walk-in clinic. He denies any change in bowel habits other than he has not been having bowel movements. He does not feel like he has to go. He is lost appetite and it just got more a more burdensome to try and get food to make it to then eat it. It just got too hard with the effort to eat to stop eating and has been subsisting on "just water".He denies dysphagia. Denies any pain with swallowing. He denies throat pain. There is no abdominal pain. He knows he has been getting weaker and skinnier but seems powerless to stop it and has no support system to help him. So he says that he has been pretty isolated over the last few months. He has a chronic mild daily cough and it is unchanged. No hemoptysis, no change in the phlegm color. He has chronic urgency, frequency, but that is associated with prostate he says for years and years now. Nothing new there. His body always hurts. 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 But that is not any new problems. If anything does have gotten worse and it contributed to his inability to be mobile. He had not paid his rent this month. As such the [employer] that takes care of his cottage called for a welfare check. He was found down on the floor and he tells him that he may been down for as long as 5 days. The same [employer] was able to contact his "grandson". Although the patient has never , he did live with a woman for quite some time before he broke up with her. He became close with her daughter, and it is her daughter's son, the person he calls "grandson", whom the [employer] called. Apparently the [employer] employee was an ex-girlfriend of the grandson. They dated 10 years ago. She managed to call the patient's grandson to let him know that Mr. Tapia was in the hospital. It is "that grandson" that is at the bedside to help me get to the story of this patient. He has been in the emergency room since May 28. It was felt that the patient had a normal white cell count, no fever, normal oxygen so we could go home with the pneumonia that was seen on chest x-ray. However the patient is unable to ambulate. He is too weak. He was also fed in the emergency room and is unable to swallow. He has electrolyte abnormalities with a sodium. As such with the low sodium, severe weakness and protein calorie malnutrition, and pneumonia, the patient will be admitted to the hospital History - Past Medical History Cardiovascular: reports: Hypertension, High cholesterol Respiratory: reports: Other (costochondritis) Neuro: reports: None Endocrine/Autoimmune: reports: HyPOthyroidism GI: reports: Colon polyps : reports: Other (Erectile dysfunction and genital herpes) HEENT: reports: None Psych: reports: None Musculoskeletal: reports: Osteoarthritis (Back, and knees, feet) Derm: reports: Eczema, Other (Seborrheic dermatitis, chronic venous stasis d ermatitis with ulcers) MRSA Hx?: No - Past Surgical History General: reports: Colonoscopy HEENT: reports: Tonsil/Adenoidectomy - Family & Social History Family History: Mother: , Father: Family History Comment/Other: Pt does not remember his parents' medical history but believes they were both healthy up until time of . His daughter at approximately age 45 of either CHF or emphysema, he cannot remember which. Living arrangement: At home Living Situation: Alone Social History Notes: Lives alone in a cottage, no pets. from live in partner for >40 years, believes she is currently living in [place]. She has mental illness, schizophrenia. Never legally to 2 women and refers to the children and grandchildren of these women as "his" family although no legal or blood relation. Retired [employer] of 31 years for the local [employer] [place]. 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 Quit smoking 1969, previously smoked tobacco approx 1 PPD for 10 years. Rarely drinks alcohol and none lately. Denies illicit drug use. - Substance History Use: Uses substance without health or social issues: NONE Abuse: Recurrent use of substance despite neg consequences: NONE Dependence: Experiences withdrawal or developed tolerances: NONE - POLST Patient has POLST: No POLST Status: DNR Meds/Allgy - Home Medications Home Medications: Ambulatory Orders Medication Instructions Recorded Confirmed Mupirocin 22 gm TP QDBREAKFAST 7 Days #1 11/14/20 11/16/20 bottle Clindamycin [Cleocin] 300 mg PO Q8HR #12 cap 11/19/20 Lactobacillus Acidophilus 1 each PO BID #28 tablet 11/19/20 [Probiotic Acidophilus] - Allergies Allergies/Adverse Reactions: Allergies Allergy/AdvReac Type Severity Reaction Status Date / Time codeine AdvReac Nausea Verified 05/28/22 11:31 Review of Systems - Constitutional Constitutional: reports: Fatigue, Malaise, Poor appetite, Weight loss (too tired to eat) - Eyes Eyes: reports: Blurred vision, Vision loss. denies: Pain, Irritation, Amaurosis - Ears, Nose & Throat Ears, Nose & Throat: reports: Hearing loss, Sore throat, Bleeding gums, Dental decay - Cardiovascular Cariovascular: reports: Chest pain, Exertional dyspnea, Decr. exercise tolerance - Respiratory Respiratory: reports: Cough, SOB with exertion. denies: Sputum production, Wheezing - Gastrointestinal Gastrointestinal: reports: Change in bowel habits (less and less BMs for months now.), Reflux/heartburn, Poor appetite, Other (denies dysphagia but can't swallow in ER). denies: Abdominal pain, Abdominal distention, Constipation, Diarrhea, Black stools, Bloody stools, Nausea, Vomiting - Genitourinary Genitourinary: reports: Frequency, Incontinence, Nocturia, Sexual dysfunction. denies: Dysuria, Flank pain - Musculoskeletal Musculoskeletal: reports: Muscle pain, Back pain, Muscle aches, Stiffness, M uscle weakness, Joint pain, Other (over the last few weeks, gen weakness worse and worse, can't drive anymore) - Integumentary Integumentary: denies: Rash, Pruritis, Lesions, Dryness - Neurological Neurological: reports: General weakness, Dizziness, Memory problems. denies: Focal weakness, Headache, Pre-existing deficit, Abnormal gait - Psychiatric Psychiatric: denies: Depression, Anxiety, Suicidal - Endocrine Endocrine: reports: Intolerance to cold. denies: Polyuria, Polydypsia, Polyphagia - Hematologic/Lymphatic Hematologic/Lymphatic: denies: Anemia, Bruising, Petechiae, Blood clots, Lymphadenopathy Prior Level of Functionality: Prior to the summer he was ambulating, still driving. Managing to pay rent, take care of his little home. Not well but doing it. Over the summer he cannot quite put his finger on it he is just gotten weaker, cannot eat, getting more an d more tired, got to the point that the only thing he wanted to swallow was water. He was getting too much to get out of bed to walk to the bathroom. Now everything hurts. Even just sitting up for a little while exhausted him and he has no truncal stability Exam - Vital Signs Reviewed Vital Signs: Yes Vital Signs: Vital Signs x48h Temp Pulse Resp BP Pulse Ox 05/29/22 10:00 37.2 C 75 19 113/59 L 98 05/29/22 08:47 68 18 - Physical Exam General Appearance: positive: No acute distress, Alert, Other (Profoundly ca chectic. 8/62751 pounds. 4/34145 pounds. 5/36753 pounds. 3/19457 pounds. Disheveled and bearded with long hair) Eyes Bilateral: positive: PERRL, EOMI ENT: positive: Dry mucous membranes, Other (Poor dentition, gingivitis, brown matter on teeth and gums. Severely dry tongue. Some teeth missing. Most of the teeth are loose in his head) Neck: positive: Trachea midline, Lymphadenopathy (R) (Shotty), Lymphadenopathy (L) (Shotty) Respiratory: positive: No respiratory distress, Other (Profoundly cachectic with rib cage visible and protuberant. Rub on the right mid axillary line). nega tive: Wheezes, Rales, Rhonchi Cardiovascular: positive: Regular rate & rhythm, Systolic murmur, Friction rub (Right mid axillary line). negative: Gallop/S4 Peripheral Pulses: positive: 1+ Abdomen: positive: Non-tender, No organomegaly, Nml bowel sounds, Other (Scaphoid, protuberant hip bone muscles) Skin: positive: Warm, Dry, Pallor Extremities: positive: Full ROM, Pedal edema (But no signs of skin loss, redness. He usually has venous stasis according to old records), Other (Severe onychomycosis of all toenails) Neurologic/Psychiatric: positive: CN's nml (2-12), Disoriented to time, Other (Although sentence structure is intact, and he answers questions, just simple speaking for for 5 minutes profoundly exhausted him and his eyes rolled back in his head as he falls back to sleep). negative: Motor nml (Severe generalized weakness. He cannot even sit on his own. No truncal stability and needs 2 people to hold him up on either side) Conclusion/Plan - Problem List (1) Pneumonia Conclusion/Plan: This is seen in lower cuts of his lung from CT of the abdomen. He does not have a fever, white cell count is normal. Oxygenation is normal. I will treat empi rically as pneumonia, but this could be a lung cancer with pleural effusion. Plan: Inpatient stay Zithromax and Rocephin. Today would be day 3. Asked that she will not need any more Zithromax after today and Rocephin will require 2 more days. Start work-up for #2. 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 There is also a pleural effusion. Plan: I explained to him what we have found. I have also explained to him that he is severely cachectic and malnourished. While we are going to treat the pneumonia, and try to address his severe protein calorie malnutrition, he may not be a good functional candidate for work-up much less treatment. He agrees. What ever we decide to do with work-up of the neoplasm he would like to discuss the pros and cons to decide if he wants to move forward. Depending on how he does in the next day or 2, I will see if the thoracentesis or a lung biopsy is possible once I review the case with radiology (3) Severe protein-calorie malnutrition Conclusion/Plan: Unclear if this is neoplasm cachexia. Or if there is true dysphagia. The ER feels that there is definite inability to swallow and the patient denies this. Plan: Regular diet to see if he can eat Swallow evaluation in the morning (4) Abnormal loss of weight Conclusion/Plan: Again most likely attributed to neoplasm. We will see if a work-up can be accomplished. This will depend on our ability to get nutrition interim, and his strength up. I think that by the time we are able to bring up his calories, increase his weight, and increase his functional mobility, this neoplasm will have made much further progress and will make the point mood. (5) Hypokalemia Conclusion/Plan: Supplement p.o. and recheck in the morning (6) Hypernatremia Conclusion/Plan: Developed between his first registration in the emergency room and until he was transferred to our service. I suspect just free water deficit. Once we hydrated him this will resolve. (7) Hypothyroid Conclusion/Plan: Will check TSH. Patient does not have Synthroid on his list. We will have pharmacy verify home meds and when they were last refilled Qualifiers: Hypothyroidism type: acquired Qualified Code(s): E03.9 - Hypothyroidism, unspecified - Lab Results Lab results reviewed: Yes Fish Bones: 05/29/22 06:20 05/29/22 06:20 - Diagnostic Imaging Results Diagnostic Imaging Results: positive: Final report reviewed
[2022-05-29] MEDS: LACTATED RINGERS 1,000 ML IV SCH (16:01)
[2022-05-29] MEDS: SODIUM CHLORIDE FLUSH 0.9% 10 ML SYRINGE IVP SCH (17:01)
[2022-05-29] MEDS: SACCHAROMYCES BOULARDII 250 MG CAPSULE PO SCH (17:49)
[2022-05-29] MEDS ORDERED: ALBUTEROL NEB 2.5 MG/3 ML INH PRN (18:51)
[2022-05-29] MEDS: POTASSIUM CHLOR 10 MEQ/100 ML 10 MEQ/100 ML BAG IV SCH ×4 (19:50→22:52)
[2022-05-30] MEDS: SODIUM CHLORIDE FLUSH 0.9% 10 ML SYRINGE IVP SCH ×3 (00:58→16:55)
[2022-05-30] MEDS: LACTATED RINGERS 1,000 ML IV SCH ×3 (00:58→20:06)
[2022-05-30 05:02] LABS: HGB - HEMOGLOBIN 11.7 g/dL (14.0-18.0); LYMPHOCYTES # (AUTO) 0.8 10^3/uL (1.5-3.5); LYMPHOCYTES % (AUTO) 8.8 %; MEAN CORPUSCULAR HEMOGLOBIN 25.8 pg (27.0-31.0); MEAN CORPUSCULAR HGB CONC 30.8 g/dL (32.0-36.0); MEAN CORPUSCULAR VOLUME 83.9 fL (80.0-94.0); MEAN PLATELET VOLUME 9.2 fL (7.4-11.4); MONOCYTES # (AUTO) 0.5 10^3/uL (0.0-1.0); MONOCYTES % (AUTO) 5.3 %; NEUTROPHILS % (AUTO) 85.4 %; PLT - PLATELET COUNT 244 10^3/uL (130-450); RED BLOOD COUNT 4.53 10^6/uL (4.70-6.10); WHITE BLOOD COUNT 9.3 x10^3/uL (4.8-10.8)
[2022-05-30 05:12] LABS: INR 1.3 (0.8-1.2); PT - PROTHROMBIN TIME 13.8 secs (9.9-12.6)
[2022-05-30 05:14] LABS: CALCIUM 8.6 mg/dL (8.5-10.3); CREATININE 0.8 mg/dL (0.6-1.2); POTASSIUM 2.6 mmol/L (3.5-5.0)
[2022-05-30] MEDS: POTASSIUM CHLOR 10 MEQ/100 ML 10 MEQ/100 ML BAG IV SCH ×8 (08:30→17:52)
[2022-05-30] MEDS: ENOXAPARIN 40 MG/0.4 ML SYRINGE SUBQ SCH (08:59)
[2022-05-30] MEDS: cefTRIAXone 1 GM in SODIUM CHLORIDE 0.9% MINIBAG 100 ML IV SCH (08:59)
[2022-05-30] MEDS: SACCHAROMYCES BOULARDII 250 MG CAPSULE PO SCH ×2 (08:59→16:55)
[2022-05-30] MEDS ORDERED: AZITHROMYCIN INJ 500 MG in SODIUM CHLORIDE 0.9% 250 ML IV SCH (09:00)
--- NOTE | 2022-05-30 10:10 | PROVIDER PROGRESS NOTE ---
Subjective - Prog Note Date Prog Note Date: 05/30/22 Prog Note Time: 10:08 - Subjective Pt reports feeling: Improved Subjective: . This cachectic elderly gentleman is disimpacting himself using his index finger. Unfortunately he then uses that same index finger to rub his eyes, rub his nose, and eat breakfast without washing his hands. He has poor insight. But is liking breakfast. We were going to be getting a speech evaluation because ER reported he could not swallow but he is eating and drinking without choking or dysphagia. Current Medications - Current Medications Current Medications: Active Medications Acetaminophen (Acetaminophen 325 Mg Tablet) 650 mg PO Q4HR PRN PRN Reason: Pain 1 to 4, or Fever Albuterol (Albuterol Neb 2.5 Mg/3 Ml) 2.5 mg INH RTQ4H PRN PRN Reason: Wheezing Enoxaparin Sodium (Enoxaparin 40 Mg/0.4 Ml Syringe) 40 mg SUBQ DAILY [facility] Last Admin: 05/30/22 08:59 Dose: 40 mg Lactated Ringer's (Lr) 1,000 mls @ 100 mls/hr IV .Q10H [facility] Last Admin: 05/30/22 00:58 Dose: 100 mls/hr Ceftriaxone Sodium 1 gm/ (Sodium Chloride) 100 mls @ 200 mls/hr IV DAILY [facility] Stop: 06/01/22 09:29 Last Admin: 05/30/22 08:59 Dose: 200 mls/hr Potassium Chloride (Potassium Chloride) 10 meq in 100 mls @ 100 mls/hr IV Q1H [facility] Stop: 05/30/22 15:59 Morphine Sulfate (Morphine 2 Mg/Ml Carpuject) 2 mg IVP Q2HR PRN PRN Reason: Pain 8 to 10 Ondansetron HCl (Ondansetron Odt 4 Mg Tablet) 4 mg TL Q6HR PRN PRN Reason: Nausea / Vomiting Ondansetron HCl (Ondansetron 4 Mg/2 Ml Vial) 4 mg IVP Q6HR PRN PRN Reason: Nausea / Vomiting Polyethylene Glycol (Polyethylene Glycol 3350 17 Gm Packet) 17 gm PO DAILY [facility] Saccharomyces Boulardii (Saccharomyces Boulardii 250 Mg Capsule) 250 mg PO BIDWM [facility] Last Admin: 05/30/22 08:59 Dose: Not Given Sodium Chloride (Sodium Chloride Flush 0.9% 10 Ml Syringe) 10 ml IVP PRN PRN PRN Reason: NEEDED PER PROVIDER ORDERS Sodium Chloride (Sodium Chloride Flush 0.9% 10 Ml Syringe) 10 ml IVP 0100,0900,1700 MICHAELA Last Admin: 05/30/22 00:58 Dose: Not Given Objective - Vital Signs/Intake & Output Reviewed Vital Signs: Yes Vital Signs: Vital Signs x48h Temp Pulse Resp BP Pulse Ox 05/30/22 08:00 36.4 C L 71 22 102/55 L 96 Intake & Output: Intake & Output 05/27/22 05/28/22 05/29/22 05/30/22 23:59 23:59 23:59 23:59 Intake Total 2250 2337.5 945 Output Total 1225 275 Balance 2250 1112.5 670 - Objective General Appearance: positive: No acute distress, Alert, Other (Profoundly cachectic elderly gentleman. He is about 80 pounds and 5 foot 6 inches tall. Prominent bone structure, rib cage, joint protuberance, scaphoid abdomen with prominent pelvic bone structure) Eyes Bilateral: positive: PERRL, EOMI ENT: positive: Other (Very poor dentition with dental caries, deep spaces within the teeth, gingivitis, halitosis) Neck: positive: No JVD. negative: Stiff neck Respiratory: positive: No respiratory distress, Other (Tubular breath sounds in the right mid lobe and right lower lobe.). negative: Wheezes, Rales, Rhonchi Cardiovascular: positive: Regular rate & rhythm Abdomen: positive: Non-tender, No organomegaly, Nml bowel sounds, No distention Skin: positive: Warm, Dry Extremities: positive: Full ROM, No pedal edema Neurologic/Psychiatric: positive: CN's nml (2-12), Motor nml (But diffusely weak. Needs assist to be able to sit up.), Disoriented to time - Lab Results Fish Bones: 05/30/22 04:50 05/30/22 04:50 Other Labs: Lab Results x24hrs 05/30/22 05/30/22 05/30/22 Range/Units 04:50 04:50 04:50 WBC (4.8-10.8) x10^3/uL RBC (4.70-6.10) 10^6/uL Hgb (14.0-18.0) g/dL Hct (42.0-52.0) % MCV (80.0-94.0) fL MCH (27.0-31.0) pg MCHC (32.0-36.0) g/dL RDW (12.0-15.0) % Plt Count (130-450) 10^3/uL MPV (7.4-11.4) fL Neut # (Auto) (1.5-6.6) 10^3/uL Lymph # (Auto) (1.5-3.5) 10^3/uL Dane # (Auto) (0.0-1.0) 10^3/uL Eos # (Auto) (0.0-0.7) 10^3/uL Baso # (Auto) (0.0-0.1) 10^3/uL Absolute Nucleated RBC x10^3/uL Nucleated RBC % /100WBC PT 13.8 H (9.9-12.6) secs INR 1.3 H (0.8-1.2) Sodium 144 (135-145) mmol/L Potassium 2.6 L (3.5-5.0) mmol/L Chloride 108 (101-111) mmol/L Carbon Dioxide 23 (21-32) mmol/L Anion Gap 13.0 (6-13) BUN 16 (6-20) mg/dL Creatinine 0.8 (0.6-1.2) mg/dL Estimated GFR (MDRD) 93 (>89) Glucose 63 L (70-100) mg/dL Calcium 8.6 (8.5-10.3) mg/dL TSH 2.68 (0.34-5.60) uIU/mL Coronavirus (PCR) 05/30/22 05/29/22 Range/Units 04:50 14:20 WBC 9.3 (4.8-10.8) x10^3/uL RBC 4.53 L (4.70-6.10) 10^6/uL Hgb 11.7 L (14.0-18.0) g/dL Hct 38.0 L (42.0-52.0) % MCV 83.9 (80.0-94.0) fL MCH 25.8 L (27.0-31.0) pg MCHC 30.8 L (32.0-36.0) g/dL RDW 16.0 H (12.0-15.0) % Plt Count 244 (130-450) 10^3/uL MPV 9.2 (7.4-11.4) fL Neut # (Auto) 8.0 H (1.5-6.6) 10^3/uL Lymph # (Auto) 0.8 L (1.5-3.5) 10^3/uL Dane # (Auto) 0.5 (0.0-1.0) 10^3/uL Eos # (Auto) 0.0 (0.0-0.7) 10^3/uL Baso # (Auto) 0.0 (0.0-0.1) 10^3/uL Absolute Nucleated RBC 0.00 x10^3/uL Nucleated RBC % 0.0 /100WBC PT (9.9-12.6) secs INR (0.8-1.2) Sodium (135-145) mmol/L Potassium (3.5-5.0) mmol/L Chloride (101-111) mmol/L Carbon Dioxide (21-32) mmol/L Anion Gap (6-13) BUN (6-20) mg/dL Creatinine (0.6-1.2) mg/dL Estimated GFR (MDRD) (>89) Glucose (70-100) mg/dL Calcium (8.5-10.3) mg/dL TSH (0.34-5.60) uIU/mL Coronavirus (PCR) NEGATIVE ABX Reporting Has patient been on IV antibiotics over the past 48 hours?: Yes Assessment/Plan - Problem List (1) Pneumonia Impression: This is seen in lower cuts of his lung from CT of the abdomen. He does not have a fever, white cell count is normal. Oxygenation is normal. I will treat empirically as pneumonia, but this could be a lung cancer with pleural effusion and/Or postobstructive pneumonitis. Plan: Inpatient stay Zithromax and Rocephin. He completed azithromycin yesterday, and will be continued on Rocephin for 5 days total. 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 Initial reading of his abdomen pe lvis CT that cut through his lower lungs showed possible neoplasm. He ended up having a CT of the chest yesterday and the CT of the chest shows it to be most likely neoplasm with metastatic disease. Plan: I had explained all of this to him in the emergency room when I did my history and physical. I have also explained to him that he is severely cachectic and malnourished. While we are going to treat the pneumonia, and try to address his severe protein calorie malnutrition, he may not be a good functional candidate for work-up much less treatment. He agrees. What ever we decide to do with work-up of the neoplasm he would like to discuss the pros and cons to decide if he wants to move forward. Today I did discuss possible lung biopsy. He says he wants to think about it. (3) Severe protein-calorie malnutrition Conclusion/Plan: Unclear if this is neoplasm cachexia. Or if there is true dysphagia. The ER feels that there is definite inability to swallow and the patient denies this. Today, on evaluation, he is able to chew and swallow. No dysphagia. As such I will cancel the swallow evaluation for today. Continue with a regular diet and nutrition services will work on improving overall status. (4) Abnormal loss of weight Conclusion/Plan: Again most likely attributed to neoplasm. We will see if a work-up can be accomplished. This will depend on our ability to get nutrition interim, and his strength up. I think that by the time we are able to bring up his calories, increase his weight, and increase his functional mobility, this neoplasm will have made much further progress and will make the point moot. (5) Hypokalemia Conclusion/Plan: He was supplemented yesterday. Today he is 2.6. I will give him potassium riders and recheck (6) Hypernatremia Conclusion/Plan: Developed between his first registration in the emergency room and until he was transferred to our service. I suspect just free water deficit. Once we hydrated him this will resolve. Today he is improved. He went from 148 down to 144 today. We will continue IV hydration (7) Hypothyroid Conclusion/Plan: TSH in ER was 1.77. Today he is 2.68. Pharmacy to verify whether he is taking Synthroid or not. Qualifiers: Hypothyroidism type: acquired Qualified Code(s): E03.9 - Hypothyroidism, unspecified
[2022-05-30] MEDS: polyethylene glycoL 3350 17 GM PACKET PO SCH (10:30)
[2022-05-30 10:52] LABS: PHOSPHORUS 1.1 mg/dL (2.5-4.6)
[2022-05-30] MEDS: MULTIVITAMIN W/MINERALS TABLET PO SCH (11:59)
--- NOTE | 2022-05-30 18:25 | PHARMACY PROGRESS NOTE ---
- Best Possible Medication History Admit Date and Time: 05/29/22 1415 Processed by: Pharmacy Medication History completed: Yes Patient Interview: Completed Secondary Source(s): Physician records Patient claims he does not take any prescription medications at home. When asked about vitamins and supplements he said he does not take any but would like to. [facility] records show a visit to a [facility] back in November and the only recorded medication at that time was a cephalexin prescription. As the person ultimately responsible for medication therapy, providers are able to order a medication from an existing home medication list in [facility] via the "Reconcile Routine" prior to Confirmation of that medication by customer support technician. Such practice is discouraged except when the physician, in their clinical judgment, deems that a medical need exists for a medication without regard to previous use.
[2022-05-31] MEDS: ACETAMINOPHEN 325 MG TABLET PO PRN ×3 (00:45→19:41)
[2022-05-31] MEDS: SODIUM CHLORIDE FLUSH 0.9% 10 ML SYRINGE IVP SCH ×4 (00:45→23:58)
[2022-05-31] MEDS: ZINC OXIDE 20% OINT 30 GM TUBE TOP PRN ×2 (00:56→05:31)
[2022-05-31 05:16] LABS: EOSINOPHILS % (AUTO) 0.7 %; HCT - HEMATOCRIT 30.1 % (42.0-52.0); HGB - HEMOGLOBIN 9.4 g/dL (14.0-18.0); LYMPHOCYTES # (AUTO) 0.8 10^3/uL (1.5-3.5); LYMPHOCYTES % (AUTO) 12.5 %; MEAN CORPUSCULAR HEMOGLOBIN 25.8 pg (27.0-31.0); MEAN CORPUSCULAR HGB CONC 31.2 g/dL (32.0-36.0); MEAN CORPUSCULAR VOLUME 82.7 fL (80.0-94.0); MEAN PLATELET VOLUME 9.2 fL (7.4-11.4); MONOCYTES # (AUTO) 0.3 10^3/uL (0.0-1.0); MONOCYTES % (AUTO) 5.1 %; NEUTROPHILS # (AUTO) 4.9 10^3/uL (1.5-6.6); NEUTROPHILS % (AUTO) 81.2 %; PLT - PLATELET COUNT 191 10^3/uL (130-450); RED BLOOD COUNT 3.64 10^6/uL (4.70-6.10); WHITE BLOOD COUNT 6.1 x10^3/uL (4.8-10.8)
[2022-05-31 05:25] LABS: CALCIUM 7.7 mg/dL (8.5-10.3); CREATININE 0.5 mg/dL (0.6-1.2); POTASSIUM 3.4 mmol/L (3.5-5.0)
[2022-05-31] MEDS: LACTATED RINGERS 1,000 ML IV SCH ×2 (05:30→16:02)
--- NOTE | 2022-05-31 07:45 | PROVIDER PROGRESS NOTE ---
Subjective - Prog Note Date Prog Note Date: 05/31/22 Prog Note Time: 07:40 - Subjective Subjective: He is able to swallow. As such I had canceled a swallow evaluation yesterday. He is not choking he has no dysphagia. Will come slight is that he cannot sit up for too long to eat. His buttocks started to ache as his ischial tuberosities pressed down on a chair. He also drops his blood pressure. So sitting up to eat is is very strenuous effort for him. In addition to just sitting up, he can eat very much at one sitting. Said food has to be presented slowly and in small meals, frequently. He has been evaluated by occupational therapy for cognitive deficits as well as speech therapy. He is 5.4 out of 7 disabled, and I will speak to Occupational Therapy about their eval. Current Medications - Current Medications Current Medications: Active Medications Acetaminophen (Acetaminophen 325 Mg Tablet) 650 mg PO Q4HR PRN PRN Reason: Pain 1 to 4, or Fever Last Admin: 05/31/22 05:30 Dose: 650 mg Albuterol (Albuterol Neb 2.5 Mg/3 Ml) 2.5 mg INH RTQ4H PRN PRN Reason: Wheezing Enoxaparin Sodium (Enoxaparin 40 Mg/0.4 Ml Syringe) 40 mg SUBQ DAILY [facility] Last Admin: 05/30/22 08:59 Dose: 40 mg Lactated Ringer's (Lr) 1,000 mls @ 100 mls/hr IV .Q10H [facility]HAEL[facility] Last Admin: 05/31/22 05:30 Dose: 100 mls/hr Ceftriaxone Sodium 1 gm/ (Sodium Chloride) 100 mls @ 200 mls/hr IV DAILY MICHAELA Stop: 06/01/22 09:29 Last Infusion: 05/30/22 09:30 Dose: Infused Morphine Sulfate (Morphine 2 Mg/Ml Carpuject) 2 mg IVP Q2HR PRN PRN Reason: Pain 8 to 10 Multi-Ingredient Ointment (Zinc Oxide 20% Oint 30 Gm Tube) 1 applic TOP PRN PRN PRN Reason: Skin Care Last Admin: 05/31/22 05:31 Dose: 1 applic Multivitamins/Minerals (Multivitamin W/Minerals Tablet) 1 tab PO DAILYWM MICHAELA Last Admin: 05/30/22 11:59 Dose: 1 tab Ondansetron HCl (Ondansetron Odt 4 Mg Tablet) 4 mg TL Q6HR PRN PRN Reason: Nausea / Vomiting Ondansetron HCl (Ondansetron 4 Mg/2 Ml Vial) 4 mg IVP Q6HR PRN PRN Reason: Nausea / Vomiting Polyethylene Glycol (Polyethylene Glycol 3350 17 Gm Packet) 17 gm PO DAILY [facility] Last Admin: 05/30/22 10:30 Dose: 17 gm Saccharomyces Boulardii (Saccharomyces Boulardii 250 Mg Capsule) 250 mg PO BIDWM [facility] Last Admin: 05/30/22 16:55 Dose: 250 mg Sodium Chloride (Sodium Chloride Flush 0.9% 10 Ml Syringe) 10 ml IVP PRN PRN PRN Reason: NEEDED PER PROVIDER ORDERS Sodium Chloride (Sodium Chloride Flush 0.9% 10 Ml Syringe) 10 ml IVP 0100,0900,1700 [facility] Last Admin: 05/31/22 00:45 Dose: 10 ml No Known Home Medications 05/30/22 Objective - Vital Signs/Intake & Output Reviewed Vital Signs: Yes Vital Signs: Vital Signs x48h Temp Pulse Resp BP Pulse Ox 05/31/22 00:50 36.6 C 79 16 106/49 L 94 Intake & Output: Intake & Output 05/28/22 05/29/22 05/30/22 05/31/22 23:59 23:59 23:59 23:59 Intake Total 2250 2337.5 4418.333 1290 Output Total 1225 526 300 Balance 2250 1112.5 3892.333 990 - Objective General Appearance: positive: No acute distress, Alert (He is asleep when I walk in but sits up. Talks to me. But he is making no sense. He also appears deaf and speaks in a loud voice. Knows that he is in the hospital but does not know why, cannot tell me what town he is in.), Other (Profoundly cachectic elderly gentleman) ENT: positive: No signs of dehydration Neck: positive: No JVD. negative: Stiff neck Respiratory: positive: No respiratory distress, Other (Right midlung and right base tubular breath sounds). negative: Wheezes, Rales, Rhonchi Cardiovascular: positive: Regular rate & rhythm. negative: Gallop/S4, Friction rub Abdomen: positive: Non-tender, No organomegaly, Nml bowel sounds, No distention Skin: positive: Warm, Dry Extremities: positive: Full ROM, No pedal edema Neurologic/Psychiatric: positive: CN's nml (2-12), Disoriented to place, Disoriented to time. negative: Motor nml (Severe generalized weakness) - Lab Results Fish Bones: 05/31/22 04:46 05/31/22 04:46 Other Labs: Lab Results x24hrs 05/31/22 05/31/22 05/30/22 Range/Units 04:46 04:46 04:50 WBC 6.1 (4.8-10.8) x10^3/uL RBC 3.64 L (4.70-6.10) 10^6/uL Hgb 9.4 L (14.0-18.0) g/dL Hct 30.1 L (42.0-52.0) % MCV 82.7 (80.0-94.0) fL MCH 25.8 L (27.0-31.0) pg MCHC 31.2 L (32.0-36.0) g/dL RDW 16.0 H (12.0-15.0) % Plt Count 191 (130-450) 10^3/uL MPV 9.2 (7.4-11.4) fL Neut # (Auto) 4.9 (1.5-6.6) 10^3/uL Lymph # (Auto) 0.8 L (1.5-3.5) 10^3/uL [place] # (Auto) 0.3 (0.0-1.0) 10^3/uL Eos # (Auto) 0.0 (0.0-0.7) 10^3/uL Baso # (Auto) 0.0 (0.0-0.1) 10^3/uL Absolute Nucleated RBC 0.00 x10^3/uL Nucleated RBC % 0.0 /100WBC Sodium 136 (135-145) mmol/L Potassium 3.4 L (3.5-5.0) mmol/L Chloride 103 (101-111) mmol/L Carbon Dioxide 27 (21-32) mmol/L Anion Gap 6.0 (6-13) BUN 13 (6-20) mg/dL Creatinine 0.5 L (0.6-1.2) mg/dL Estimated GFR (MDRD) 160 (>89) Glucose 108 H (70-100) mg/dL Calcium 7.7 L (8.5-10.3) mg/dL Phosphorus 1.1 L (2.5-4.6) mg/dL Magnesium 2.0 (1.7-2.8) mg/dL ABX Reporting Has patient been on IV antibiotics over the past 48 hours?: Yes Assessment/Plan - Problem List (1) Pneumonia Impression: This is seen in lower cuts of his lung from CT of the abdomen. He does not have a fever, white cell count is normal. Oxygenation is normal. I will treat empirically as pneumonia, but this could be a lung cancer with pleural effusion and/Or postobstructive pneumonitis. Plan: Inpatient stay Zithromax and Rocephin. He completed azithromycin 05/29, and will be continued on Rocephin for 5 days total. 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 Initial reading of his abdomen pelvis CT that cut through his lower lungs showed possible neoplasm. He ended up having a CT of the chest 05/[address] of the chest shows it to be most likely neoplasm with metastatic disease. Plan: I had explained all of this to him in the emergency room when I did my history and physical. I have also explained to him that he is severely cachectic and malnourished. While we are going to treat the pneumonia, and try to address his severe protein calorie malnutrition, he may not be a good functional candidate for work-up much less treatment. He agrees. What ever we decide to do with work-up of the neoplasm he would like to discuss the pros and cons to decide if he wants to move forward. 05/30 I did discuss possible lung biopsy. He says he wants to think about it. 05/31 I do not know how much I can trust his judgment, but he tells me he does not want a lung biopsy. I described numbing the skin, and a large needle going in through the skin between the ribs to take a piece of lung. A very tiny piece of lung. He says no. (3) Severe protein-calorie malnutrition Conclusion/Plan: Unclear on admission if this is neoplasm cachexia. Or if there is true dysphagia. The ER feels that there is definite inability to swallow and the patient denies this. 05/30, on evaluation, he is able to chew and swallow. No dysphagia. As such I cancelled the swallow evaluation. Continue with a regular diet and nutrition services will work on improving overall status. (4) Abnormal loss of weight Conclusion/Plan: Again most likely attributed to neoplasm. We will see if a work-up can be accomplished. This will depend on our ability to get nutrition interim, and his strength up. I think that by the time we are able to bring up his calories, increase his weight, and increase his functional mobility, this neoplasm will have made much further progress and will make the point moot. (5) Hypokalemia Conclusion/Plan: Today he is 2.6>>3.4 after daily supplementation. I will give him potassium riders and recheck (6) Hypernatremia resolved Conclusion/Plan: Developed between his first registration in the emergency room and until he was transferred to our service. I suspect just free water deficit. Once we hydrated him this will resolve. 148>>144>>136 today. We will continue IV hydration (7) Hypothyroid Conclusion/Plan: TSH in ER was 1.77. Today he is 2.68. Pharmacy to verify whether he is taking Synthroid or not and he is not. has not filled meds per insurance claims for [employer] than a year. As such no synthroid to be ordered in the face of normal TSH. Qualifiers: Hypothyroidism type: acquired Qualified Code(s): E03.9 - Hypothyroidism, unspecified
[2022-05-31] MEDS: cefTRIAXone 1 GM in SODIUM CHLORIDE 0.9% MINIBAG 100 ML IV SCH (09:30)
[2022-05-31] MEDS: ENOXAPARIN 40 MG/0.4 ML SYRINGE SUBQ SCH (09:50)
[2022-05-31] MEDS: polyethylene glycoL 3350 17 GM PACKET PO SCH (10:01)
[2022-05-31] MEDS: SACCHAROMYCES BOULARDII 250 MG CAPSULE PO SCH ×2 (10:02→18:26)
[2022-05-31] MEDS: MULTIVITAMIN W/MINERALS TABLET PO SCH (10:02)
[2022-05-31] MEDS: MORPHINE 2 MG/ML CARPUJECT IVP PRN (11:17)
[2022-06-01] MEDS: LACTATED RINGERS 1,000 ML IV SCH ×2 (04:45→16:47)
[2022-06-01 05:04] LABS: BASOPHILS % (AUTO) 0.3 %; EOSINOPHILS # (AUTO) 0.1 10^3/uL (0.0-0.7); EOSINOPHILS % (AUTO) 1.5 %; HGB - HEMOGLOBIN 10.6 g/dL (14.0-18.0); LYMPHOCYTES # (AUTO) 0.8 10^3/uL (1.5-3.5); LYMPHOCYTES % (AUTO) 13.3 %; MEAN CORPUSCULAR HEMOGLOBIN 25.7 pg (27.0-31.0); MEAN CORPUSCULAR HGB CONC 30.3 g/dL (32.0-36.0); MEAN CORPUSCULAR VOLUME 84.7 fL (80.0-94.0); MONOCYTES # (AUTO) 0.4 10^3/uL (0.0-1.0); MONOCYTES % (AUTO) 6.6 %; NEUTROPHILS # (AUTO) 4.6 10^3/uL (1.5-6.6); NEUTROPHILS % (AUTO) 77.6 %; PLT - PLATELET COUNT 200 10^3/uL (130-450); RED BLOOD COUNT 4.13 10^6/uL (4.70-6.10); RED CELL DISTRIBUTION WIDTH 16.5 % (12.0-15.0); WHITE BLOOD COUNT 5.9 x10^3/uL (4.8-10.8)
[2022-06-01 05:12] LABS: CALCIUM 7.8 mg/dL (8.5-10.3); CREATININE 0.5 mg/dL (0.6-1.2); POTASSIUM 4.1 mmol/L (3.5-5.0)
[2022-06-01] MEDS: MULTIVITAMIN W/MINERALS TABLET PO SCH (09:14)
[2022-06-01] MEDS: SACCHAROMYCES BOULARDII 250 MG CAPSULE PO SCH ×2 (09:14→16:47)
[2022-06-01] MEDS: SODIUM CHLORIDE FLUSH 0.9% 10 ML SYRINGE IVP SCH ×2 (09:14→16:05)
[2022-06-01] MEDS: ENOXAPARIN 40 MG/0.4 ML SYRINGE SUBQ SCH (09:14)
[2022-06-01] MEDS: polyethylene glycoL 3350 17 GM PACKET PO SCH (09:14)
[2022-06-01] MEDS: ZINC OXIDE 20% OINT 30 GM TUBE TOP PRN (09:16)
[2022-06-01] MEDS: cefTRIAXone 1 GM in SODIUM CHLORIDE 0.9% MINIBAG 100 ML IV SCH (09:39)
--- NOTE | 2022-06-01 13:27 | PROVIDER PROGRESS NOTE ---
Subjective - Prog Note Date Prog Note Date: 06/01/22 Prog Note Time: 13:24 - Subjective Subjective: no new complaints. more alert and vocal than what I have seen. appropriate. still disoriented to place and time. Current Medications - Current Medications Current Medications: Active Medications Acetaminophen (Acetaminophen 325 Mg Tablet) 650 mg PO Q4HR PRN PRN Reason: Pain 1 to 4, or Fever Last Admin: 05/31/22 19:41 Dose: 650 mg Albuterol (Albuterol Neb 2.5 Mg/3 Ml) 2.5 mg INH RTQ4H PRN PRN Reason: Wheezing Enoxaparin Sodium (Enoxaparin 40 Mg/0.4 Ml Syringe) 40 mg SUBQ DAILY [facility] Last Admin: 06/01/22 09:14 Dose: 40 mg Lactated Ringer's (Lr) 1,000 mls @ 100 mls/hr IV .Q10H [facility] Last Infusion: 06/01/22 10:14 Dose: 100 mls/hr Morphine Sulfate (Morphine 2 Mg/Ml Carpuject) 2 mg IVP Q2HR PRN PRN Reason: Pain 8 to 10 Last Admin: 05/31/22 11:17 Dose: 2 mg Multi-Ingredient Ointment (Zinc Oxide 20% Oint 30 Gm Tube) 1 applic TOP PRN PRN PRN Reason: Skin Care Last Admin: 06/01/22 09:16 Dose: 1 applic Multivitamins/Minerals (Multivitamin W/Minerals Tablet) 1 tab PO DAILYWM [facility] Last Admin: 06/01/22 09:14 Dose: 1 tab Ondansetron HCl (Ondansetron Odt 4 Mg Tablet) 4 mg TL Q6HR PRN PRN Reason: Nausea / Vomiting Ondansetron HCl (Ondansetron 4 Mg/2 Ml Vial) 4 mg IVP Q6HR PRN PRN Reason: Nausea / Vomiting Polyethylene Glycol (Polyethylene Glycol 3350 17 Gm Packet) 17 gm PO DAILY [facility] Last Admin: 06/01/22 09:14 Dose: Not Given Saccharomyces Boulardii (Saccharomyces Boulardii 250 Mg Capsule) 250 mg PO BIDWM [facility] Last Admin: 06/01/22 09:14 Dose: 250 mg Sodium Chloride (Sodium Chloride Flush 0.9% 10 Ml Syringe) 10 ml IVP PRN PRN PRN Reason: NEEDED PER PROVIDER ORDERS Sodium Chloride (Sodium Chloride Flush 0.9% 10 Ml Syringe) 10 ml IVP 0100,0900,1700 [facility] Last Admin: 06/01/22 09:14 Dose: 10 ml No Known Home Medications 05/30/22 Objective - Vital Signs/Intake & Output Reviewed Vital Signs: Yes Vital Signs: Vital Signs x48h Temp Pulse Resp BP Pulse Ox 06/01/22 08:35 36.6 C 78 20 136/65 H 95 Intake & Output: Intake & Output 05/29/22 05/30/22 05/31/22 06/01/22 23:59 23:59 23:59 23:59 Intake Total 2337.5 4418.333 3621.667 2633.333 Output Total 1225 618 681 5820 Balance 1112.5 3892.333 3071.667 1033.333 - Objective General Appearance: positive: No acute distress, Alert (he is awake, asking for blankets bc he's cold. can't finish breakfast bc "too much" and is full.), Other (cachectic gaunt elderly man) Eyes Bilateral: positive: PERRL, EOMI ENT: positive: No signs of dehydration (poor dentition but the stuff covering his teetch and mouth hygeine is much better) Neck: positive: No JVD. negative: Stiff neck Respiratory: positive: No respiratory distress. negative: Wheezes, Rales, Rhonchi Cardiovascular: positive: Regular rate & rhythm. negative: Gallop/S4, Friction rub Abdomen: positive: Non-tender, No organomegaly, Nml bowel sounds, No distention Skin: positive: Warm, Dry Extremities: positive: Full ROM, No pedal edema Neurologic/Psychiatric: positive: CN's nml (2-12), Motor nml (but moderate generalized weakness, can't sit up on his own), Disoriented to place (knows its hospital but not where), Disoriented to time - Lab Results Fish Bones: 06/01/22 04:43 06/01/22 04:43 Other Labs: Lab Results x24hrs 06/01/22 06/01/22 Range/Units 04:43 04:43 WBC 5.9 (4.8-10.8) x10^3/uL RBC 4.13 L (4.70-6.10) 10^6/uL Hgb 10.6 L (14.0-18.0) g/dL Hct 35.0 L (42.0-52.0) % MCV 84.7 (80.0-94.0) fL MCH 25.7 L (27.0-31.0) pg MCHC 30.3 L (32.0-36.0) g/dL RDW 16.5 H (12.0-15.0) % Plt Count 200 (130-450) 10^3/uL MPV 9.0 (7.4-11.4) fL Neut # (Auto) 4.6 (1.5-6.6) 10^3/uL Lymph # (Auto) 0.8 L (1.5-3.5) 10^3/uL [place] # (Auto) 0.4 (0.0-1.0) 10^3/uL Eos # (Auto) 0.1 (0.0-0.7) 10^3/uL Baso # (Auto) 0.0 (0.0-0.1) 10^3/uL Absolute Nucleated RBC 0.00 x10^3/uL Nucleated RBC % 0.0 /100WBC Sodium 139 (135-145) mmol/L Potassium 4.1 (3.5-5.0) mmol/L Chloride 102 (101-111) mmol/L Carbon Dioxide 32 (21-32) mmol/L Anion Gap 5.0 L (6-13) BUN 13 (6-20) mg/dL Creatinine 0.5 L (0.6-1.2) mg/dL Estimated GFR (MDRD) 160 (>89) Glucose 82 (70-100) mg/dL Calcium 7.8 L (8.5-10.3) mg/dL ABX Reporting Has patient been on IV antibiotics over the past 48 hours?: Yes Assessment/Plan - Problem List (1) Pneumonia Impression: This is seen in lower cuts of his lung from CT of the abdomen. He does not have a fever, white cell count is normal. Oxygenation is normal. I will treat empirically as pneumonia, but this could be a lung cancer with pleural effusion and/Or postobstructive pneumonitis. He has slowly improved but I think this is bc of hydration and food. Overall, we have treated him for pna but I think this is just lung tumor we are seeing. Plan: Inpatient stay Zithromax and Rocephin. He completed azithromycin 05/29, and will be continued on Rocephin for 5 days total. Today is day 5. Abx have been stopped. Now that acute medical problems have resolved or are stable, we are now looking for disposition/placement for him in view of #2. 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 Initial reading of his abdomen pelvis CT that cut through his lower lungs showed possible neoplasm. He ended up having a CT of the chest 05/[address] of the chest shows it to be most likely neoplasm with metastatic disease. Plan: I had explained all of this to him in the emergency room when I did my history and physical. I have also explained to him that he is severely cachectic and malnourished. While we are going to treat the pneumonia, and try to address his severe protein calorie malnutrition, he may not be a good functional candidate for work-up much less treatment. He agrees. What ever we decide to do with work-up of the neoplasm he would like to discuss the pros and cons to decide if he wants to move forward. 05/30 I did discuss possible lung biopsy. He says he wants to think about it. 05/31 I do not know how much I can trust his judgment, but he tells me he does not want a lung biopsy. I described numbing the skin, and a large needle going in through the skin between the ribs to take a piece of lung. A very tiny piece of lung. He says no. 06/01 he is much more alert and aware today. He admits he ari knew about "something" even before his coming here. he doesn't want biopsy, surgery or XRT/chemo. He just wants to live somewhere to be taken care of until it's time to pass away. social work is looking into placement. (3) Severe protein-calorie malnutrition Conclusion/Plan: Unclear on admission if this is neoplasm cachexia. Or if there is true dysphagia. The ER feels that there is definite inability to swallow and the patient denies this. 05/30, on evaluation, he is able to chew and swallow. No dysphagia. As such I cancelled the swallow evaluation. Continue with a regular diet and nutrition services will work on improving overall status. he is eating but not much. K and Phos being monitored. (4) Abnormal loss of weight Conclusion/Plan: Again most likely attributed to neoplasm. No work up for neoplasm. (5) Hypokalemia Conclusion/Plan: Today he is 2.6>>3.4>>4.1 after daily supplementation. Continue to monitor and replace if needed. (6) Hypernatremia resolved Conclusion/Plan: Developed between his first registration in the emergency room and until he was transferred to our service. I suspect just free water deficit. Once we hydrated him this will resolve. 148>>144>>136>>139 today. We will continue IV hydration (7) Hypothyroid Conclusion/Plan: TSH in ER was 1.77. Today he is 2.68. Pharmacy to verify whether he is taking Synthroid or not and he is not. has not filled meds per insurance claims for [employer] than a year. As such no synthroid to be ordered in the face of normal TSH. Qualifiers: Hypothyroidism type: acquired Qualified Code(s): E03.9 - Hypothyroidism, unspecified
[2022-06-01] MEDS: ACETAMINOPHEN 325 MG TABLET PO PRN (23:35)
[2022-06-02] MEDS: SODIUM CHLORIDE FLUSH 0.9% 10 ML SYRINGE IVP SCH ×3 (00:27→17:16)
[2022-06-02] MEDS: LACTATED RINGERS 1,000 ML IV SCH (02:28)
[2022-06-02] MEDS: MORPHINE 2 MG/ML CARPUJECT IVP PRN (05:03)
[2022-06-02] MEDS: ZINC OXIDE 20% OINT 30 GM TUBE TOP PRN ×3 (08:40→20:20)
[2022-06-02] MEDS: SACCHAROMYCES BOULARDII 250 MG CAPSULE PO SCH ×2 (08:40→17:16)
[2022-06-02] MEDS: ACETAMINOPHEN 325 MG TABLET PO PRN ×2 (08:40→17:16)
[2022-06-02] MEDS: MULTIVITAMIN W/MINERALS TABLET PO SCH (08:40)
[2022-06-02] MEDS: ENOXAPARIN 40 MG/0.4 ML SYRINGE SUBQ SCH (08:40)
[2022-06-02] MEDS: polyethylene glycoL 3350 17 GM PACKET PO SCH (08:42)
--- NOTE | 2022-06-02 11:05 | PROVIDER PROGRESS NOTE ---
Progress Note June 02, 2022 1101 Mr. Tapia is a remarkably pleasant, cooperative elderly gentleman in spite of his illness. He is telling us that he is grateful for the care that the nurses are giving him. He says that the food is good is just that it is "too much". He can finish about 25 to 50% of his plate and then he has descended away becaus e his stomach is full. No nausea, no abdominal pain. Pleuritic chest pain on the right chest wall is controlled. Its not severe unless he gets up and coughs. He just complains of being really really tired. He is very forgetful, needs to be prompted about where he is and why he is here and then he will remember. Active Medications Acetaminophen (Acetaminophen 325 Mg Tablet) 650 mg PO Q4HR PRN PRN Reason: Pain 1 to 4, or Fever Last Admin: 06/02/22 08:40 Dose: 650 mg Enoxaparin Sodium (Enoxaparin 40 Mg/0.4 Ml Syringe) 40 mg SUBQ DAILY [facility] Last Admin: 06/02/22 08:40 Dose: 40 mg Morphine Sulfate (Morphine 2 Mg/Ml Carpuject) 2 mg IVP Q2HR PRN PRN Reason: Pain 8 to 10 Last Admin: 06/02/22 05:03 Dose: 2 mg Multi-Ingredient Ointment (Zinc Oxide 20% Oint 30 Gm Tube) 1 applic TOP PRN PRN PRN Reason: Skin Care Last Admin: 06/02/22 08:40 Dose: 1 applic Multivitamins/Minerals (Multivitamin W/Minerals Tablet) 1 tab PO DAILYWM [facility] Last Admin: 06/02/22 08:40 Dose: 1 tab Ondansetron HCl (Ondansetron Odt 4 Mg Tablet) 4 mg TL Q6HR PRN PRN Reason: Nausea / Vomiting Ondansetron HCl (Ondansetron 4 Mg/2 Ml Vial) 4 mg IVP Q6HR PRN PRN Reason: Nausea / Vomiting Last Admin: 06/02/22 05:00 Dose: 4 mg Polyethylene Glycol (Polyethylene Glycol 3350 17 Gm Packet) 17 gm PO DAILY [facility] Last Admin: 06/02/22 08:42 Dose: Not Given Saccharomyces Boulardii (Saccharomyces Boulardii 250 Mg Capsule) 250 mg PO BIDWM [facility] Last Admin: 06/02/22 08:40 Dose: 250 mg Sodium Chloride (Sodium Chloride Flush 0.9% 10 Ml Syringe) 10 ml IVP PRN PRN PRN Reason: NEEDED PER PROVIDER ORDERS Sodium Chloride (Sodium Chloride Flush 0.9% 10 Ml Syringe) 10 ml IVP 0100,0900,1700 [facility] Last Admin: 06/02/22 08:41 Dose: Not Given No Known Home Medications 05/30/22 Exam: Temperature is 36.5. Heart rate 68. Blood pressure 110/54. Respirations 16. 93% on room air. 5 foot 6 inch male who is 40.90 kg. Gaunt, cachectic, partially edentulous with teeth missing, overall disheveled appearance. Neck is supple with shotty adenopathy Course tubular breath sounds are present in the right mid lobe, right lower lobe. No respiratory distress. No increased respiratory effort with speaking to me. Rib cage is visible because of severe muscle wasting Abdomen is soft, nontender, hypoactive bowel sounds. Gaunt extremities with the severe loss of muscle mass, no edema, onychomycosis is present. Neurologically he is now able to sit up on the side of the bed with standby assist. Truncal stability has improved and that he could not sit up on his own before and would slump over if not with contact-guard assist. He is now able to stand with min assist before he fatigues easily and needs to sit down. Assessment Right lower lobe lung neoplasm eroding through chest wall. This is resulted in a profound decrease in functional status with cachexia, and immobility. He is too weak to even eat sometimes. He is lost 100 pounds. Current ongoing problem is severe protein calorie malnutrition and failure to thrive. Plan is eventual discharge to a facility or home with hospice care once we can establish power of family law attorney. I will be stopping IV fluids, removing his Marie today. Since he is gaining some strength and able to improve his truncal stability I will order physical therapy for tomorrow. He is essentially ready for discharge to the next site of care. Today will be an avoidable day Resolved medical problems: 1. Pneumonia therapy has been completed with 3 days of azithromycin and 5 days of Rocephin 2. Abnormal loss of weight 3. Hypokalemia 4. Hyponatremia 5. Hypothyroidism review. He is not hypothyroid and is not on medication
--- NOTE | 2022-06-02 11:10 | ADVANCE CARE PLANNING NOTE ---
Advance Care Planning - Planning Encounter Date: 06/02/22 Time: 11:08 Purpose: Establish care goals and formally document Parties in Attendance: Hospitalist and patient Decisional Capacity of the Patient: He is a very forgetful elderly gentleman. He knows that he is in the hospital but does not know which one and he does not know what town he is in. He is in the process of designating a DPOA. Most likely it will be his "grandson" Miquel. 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 Unfortunately patient was not diagnosed before profound diminishment in functional capacity occurred. He is now most likely not a candidate for treatment. - Encounter Subjective/Patient's Story: His social history is obtained from his "grandson" Miquel. He has had 2 lifelong partners. But he has not lived with them for a very very long time. He is from his last live-in partner for over 3 decades. She currently lives in [place]. She had a daughter that is now . And that daughter had a son named Miquel. Miquel considers Mr. Tapia his "grandfather". He has not seen him in 6 years since he graduated from high school. 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 As far as timing knows, Mr. Tapia has no blood relatives. The patient lives alone in a cottage. Does not have any pets. 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 He smoked 1 pack/day for 10 years and quit approximately 1969. He has no history of alcohol abuse or recreational substance abuse. He resented to our ER with being found down in his home through a welfare check. It is estimated that he has been may been on the ground for at least 5 days. Amazingly enough he did not have skin breakdown or rhabdomyolysis so we question if he was really down for 5 days. He gives a story of gradual reduction in mobility due to generalized weakness. He just did not have an appetite and it was getting harder to eat food. It was also becoming impossible to have the energy to drive, by food, much less make it and eat it. It got to the point that he was probably just subsisting on water from his recollection. He also has had an 80 to 100 pound weight loss over the last 2 years. He did see his primary care provider earlier this year complaining of right chest wall axillary pain. He was given antibiotics. No x- ray was done. However a mammogram was ordered. He is an ex-smoker. With his current evaluation we found to have, on admission, a right lung infiltrate. We started him on empiric antibiotic for community-acquired pneumonia. As our work-up continued into the CT of his chest he has been found to have a right lung neoplasm that is invasion through the chest wall. I explained to the patient that he has a severely decreased performance status. I explained that he is so weak is so malnourished that I do not know if he is a candidate for chemotherapy. Or radiation or surgery. Nevertheless, it is his decision to make. I can press forward with biopsy, work-up, staging to then give an opinion from oncology. He states that he does not want it. "I'm tired and it's time for me to go". Objective/Medical Story: He is an 81-year-old gentleman who is rarely followed by primary care providers since he does not go to them. He used to see Saulo allred, and in the last year established himself with the walk in clinic on [facility]. He was seen in the walk-in clinic on November 27, 2021 complaining of pleuritic right axillary pain. He was examined for breast cancer and chest wall exam was negative, no axillary adenopathy found. He was placed on antibiotics and asked to come back if the pain continued and then they would refer him for a mammogram. No chest x-ray was done. He was referred for a mammogram. But he states that he got so tired and could not figure out a way to get the appointment and make it. So he never did the follow-up. The patient denies cough, fevers, sweats. He is a poor historian and I do not know if I can trust him. But he insists that he felt "fine" other than this armpit pain. He has been losing weight because he just does not want to eat. In April 2009 he was 179 pounds. December 2020 he was 152 pounds. January 2021 he was 147. In November 2021 he was 136 pounds at the walk-in clinic. He denies any change in bowel habits other than he has not been having bowel movements. He does not feel like he has to go. He is lost appetite and it just got more a more burdensome to try and get food to make it to then eat it. It just got too hard with the effort to eat to stop eating and has been subsisting on "just water".He denies dysphagia. Denies any pain with swallowing. He denies throat pain. There is no abdominal pain. He knows he has been getting weaker and skinnier but seems powerless to stop it and has no support system to help him. So he says that he has been pretty isolated over the last few months. He has a chronic mild daily cough and it is unchanged. No hemoptysis, no change in the phlegm color. He has chronic urgency, frequency, but that is associated with prostate he says for years and years now. Nothing new there. His body always hurts. 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 But that is not any new problems. If anything does have gotten worse and it contributed to his inability to be mobile. He had not paid his rent this month. As such the [employer] that takes care of his cottage called for a welfare check. He was found down on the floor and he tells him that he may been down for as long as 5 days. The same [employer] was able to contact his "grandson". Although the patient has never , he did live with a woman for quite some time before he broke up with her. He became close with her daughter, and it is her daughter's son, the person he calls "grandson", whom the [employer] called. Apparently the [employer] employee was an ex-girlfriend of the grandson. They dated 10 years ago. She managed to call the patient's grandson to let him know that Mr. Tapia was in the hospital. It is "that grandson" that is at the bedside to help me get to the story of this patient. He has been in the emergency room since May 28. It was felt that the patient had a normal white cell count, no fever, normal oxygen so we could go home with the pneumonia that was seen on chest x-ray. However the patient is unable to ambulate. He is too weak. He was also fed in the emergency room and is unable to swallow. He has electrolyte abnormalities with a sodium. As such with the low sodium, severe weakness and protein calorie malnutrition, and pneumonia, the patient will be admitted to the hospital - Past Medical History Cardiovascular: reports: Hypertension, High cholesterol Respiratory: reports: Other (costochondritis) Neuro: reports: None Endocrine/Autoimmune: reports: HyPOthyroidism GI: reports: Colon polyps : reports: Other (Erectile dysfunction and genital herpes) HEENT: reports: None Psych: reports: None Musculoskeletal: reports: Osteoarthritis (Back, and knees, feet) Derm: reports: Eczema, Other (Seborrheic dermatitis, chronic venous stasis dermatitis with ulcers) MRSA Hx?: No - Past Surgical History General: reports: Colonoscopy HEENT: reports: Tonsil/Adenoidectomy Goals of Care: Mr. Tapia is unable to maintain attention span long enough to make plans. He knows that it is time to go and does not state that there is a particular place he wants to be. He is perfectly content to stay here or go home or be placed in a correction. All he says, several times, is "I am tired. It is just time for me to go". He is referring to passing away Plan: At this time I am working closely with social work and need their guidance. We need to establish a DURABLE POWER OF FAMILY PROTECTION SPECIALIST that can make healthcare decisions for him. Or please help the patient make healthcare decisions in view of his most likely cognitive deficit that is present. From there we need to make financial decisions about how to either place him at home with hospice care, place him in a residential facility with hospice, or a alf facility with hospice/comfort measures only. Code Status: Do Not Attempt Resuscitation Time spent on advance care plannin minutes
[2022-06-03] MEDS: SODIUM CHLORIDE FLUSH 0.9% 10 ML SYRINGE IVP SCH ×3 (01:00→16:54)
[2022-06-03] MEDS: SACCHAROMYCES BOULARDII 250 MG CAPSULE PO SCH ×2 (08:01→16:54)
[2022-06-03] MEDS: ENOXAPARIN 40 MG/0.4 ML SYRINGE SUBQ SCH (08:01)
[2022-06-03] MEDS: polyethylene glycoL 3350 17 GM PACKET PO SCH (08:01)
[2022-06-03] MEDS: MULTIVITAMIN W/MINERALS TABLET PO SCH (08:01)
[2022-06-03] MEDS: MORPHINE SOL 10 MG/0.5 ML ORAL SYRINGE PO PRN ×3 (08:02→15:25)
[2022-06-03] MEDS: MORPHINE SOL 10 MG/0.5 ML ORAL SYRINGE PO SCH ×2 (11:35→18:20)
--- NOTE | 2022-06-03 12:08 | PROVIDER PROGRESS NOTE ---
Progress Note June 03, 2022 12 PM No new changes. Mr. Tapia is having increasing pain from the lung cancer that is eroding through into the rib cage and chest wall. We started him on morphine yesterday but he is only received 2 or 3 doses. I do not know how often nursing is asking him if he needs pain medicine but this morning he is miserable. Continues to reiterate that he really does not know which hospital this is or which town it is. But he acknowledges that he has cancer and that it is time for him to "go". He really does not express any desire to be 1 place or another. He tells me that he just wants to be warm, and really appreciates how good the nurses are taking care of him. He is eating small bites of his meals. He gets full very easily. He actually stood for the first time this weekend. Active Medications Acetaminophen (Acetaminophen 325 Mg Tablet) 650 mg PO Q4HR PRN PRN Reason: Pain 1 to 4, or Fever Last Admin: 06/02/22 17:16 Dose: 650 mg Enoxaparin Sodium (Enoxaparin 40 Mg/0.4 Ml Syringe) 40 mg SUBQ DAILY [facility] Last Admin: 06/03/22 08:01 Dose: 40 mg Morphine Sulfate (Morphine Neema 10 Mg/0.5 Ml Oral Syringe) 10 mg PO Q2HR PRN PRN Reason: PAIN Last Admin: 06/03/22 10:14 Dose: 10 mg Morphine Sulfate (Morphine Neema 10 Mg/0.5 Ml Oral Syringe) 5 mg PO Q6HR [facility] Last Admin: 06/03/22 11:35 Dose: 5 mg Multi-Ingredient Ointment (Zinc Oxide 20% Oint 30 Gm Tube) 1 applic TOP PRN PRN PRN Reason: Skin Care Last Admin: 06/02/22 20:20 Dose: 1 applic Multivitamins/Minerals (Multivitamin W/Minerals Tablet) 1 tab PO DAILYWM [facility] Last Admin: 06/03/22 08:01 Dose: 1 tab Ondansetron HCl (Ondansetron Odt 4 Mg Tablet) 4 mg TL Q6HR PRN PRN Reason: Nausea / Vomiting Polyethylene Glycol (Polyethylene Glycol 3350 17 Gm Packet) 17 gm PO DAILY [facility] Last Admin: 06/03/22 08:01 Dose: 17 gm Saccharomyces Boulardii (Saccharomyces Boulardii 250 Mg Capsule) 250 mg PO BIDWM [facility] Last Admin: 06/03/22 08:01 Dose: 250 mg Sodium Chloride (Sodium Chloride Flush 0.9% 10 Ml Syringe) 10 ml IVP PRN PRN PRN Reason: NEEDED PER PROVIDER ORDERS Sodium Chloride (Sodium Chloride Flush 0.9% 10 Ml Syringe) 10 ml IVP 0100,0900,1700 [facility] Last Admin: 06/03/22 11:36 Dose: 10 ml No Known Home Medications 05/30/22 Exam: Temperature is 36.6. Heart rate 72. Blood pressure 131/59. Respirations 18. 94% on room air 5 foot 6 inches tall and 47.62 kg he is up 7 kg from admit weight of 40 kg. Elderly cachectic white male with poor dentition, deafness, generalized weakness that needs 2 people to help him sit up in bed. Is evidence of cachexia and diffuse muscle wasting is quite prominent with visible skull structure, rib cage structure and bony protuberances on his hips, knees, elbows. Neck is supple Lungs are clear except for tubular coarse breath sounds in the right middle lobe and right lower lobe. He does not have increased respiratory effort or any respiratory distress with movement or with speaking Regular rate and rhythm Abdomen is soft, scaphoid, quiet bowel sounds, nontender and no organomegaly Extremities show diffuse loss of muscle mass, cool toes and fingers but warm trunk. No edema. No anasarca. Onychomycosis of his toenails. Neurologically he is alert to person. Alert to why he is here. Mildly deaf to moderately deaf. Follows commands. Sentence structure is appropriate. Just easily confused. Assessment Right lower lobe lung neoplasm eroding through chest wall. This is resulted in a profound decrease in functional status with cachexia, and immobility. He is too weak to even eat sometimes. He is lost 100 pounds. Current ongoing problem is severe protein calorie malnutrition and failure to thrive. Plan is eventual discharge to a facility or home with hospice care once we can establish power of business attorney. I stopped his IV fluids June 02. I did also remove his Marie and he needed a straight cath yesterday. But not needing the Marie put back yet. Since he is gaining some strength and able to improve his truncal stability.Physical therapy and Occupational Therapy will see him today His other problem is severe pain from the tumor eroding into his chest wall. I will change Roxanol drops to scheduled 5 q6h and continue 10 q2h prn. He is essentially ready for discharge to the next site of care. Today Is jacquelin sloan day 2. I am trying to diminish the amount of things we are doing for this poor unfortunate gentleman. Focusing more on comfort than procedures. That is why I stopped IV fluids. Try to take out the Marie. Today I will change vital signs to twice a day. No further IV placement Resolved medical problems: 1. Pneumonia therapy has been completed with 3 days of azithromycin and 5 days of Rocephin 2. Abnormal loss of weight 3. Hypokalemia 4. Hyponatremia 5. Hypothyroidism review. He is not hypothyroid and is not on medication
[2022-06-04] MEDS: MORPHINE SOL 10 MG/0.5 ML ORAL SYRINGE PO SCH ×4 (00:10→18:29)
[2022-06-04] MEDS: SODIUM CHLORIDE FLUSH 0.9% 10 ML SYRINGE IVP SCH ×3 (00:11→17:05)
[2022-06-04] MEDS: ZINC OXIDE 20% OINT 30 GM TUBE TOP PRN (06:29)
[2022-06-04] MEDS: polyethylene glycoL 3350 17 GM PACKET PO SCH (08:41)
[2022-06-04] MEDS: SACCHAROMYCES BOULARDII 250 MG CAPSULE PO SCH ×2 (08:42→17:05)
[2022-06-04] MEDS: MULTIVITAMIN W/MINERALS TABLET PO SCH (08:42)
[2022-06-04] MEDS: ENOXAPARIN 40 MG/0.4 ML SYRINGE SUBQ SCH (08:42)
--- NOTE | 2022-06-04 10:06 | PROVIDER PROGRESS NOTE ---
Assessment/Plan - Problem List (1) Metastatic lung cancer (metastasis from lung to other site) Qualifiers: Qualified Code(s): C34.90 - Malignant neoplasm of unspecified part of unspecified bronchus or lung Assessment/Plan: He has a right lower lobe lung neoplasm eroding through the right chest wall. This has resulted in chest wall pain, a profound decrease in functional status with cachexia, and immobility. He was too weak to even eat sometimes. He is lost 100 pounds. He has severe pain from the tumor eroding into his chest wall. We changed Roxanol drops to scheduled 5mg q6h and continue 10mg q2h prn. (2) Severe protein calorie malnutrition He has had failure to thrive, lost 100 pounds. We stopped his IV fluids June 02. We also removed his Marie and he needed a straight cath, but not needing the Marie put back yet. Since he is gaining some strength and able to improve his truncal stability. Physical therapy and Occupational Therapy are working with him and recommend a SNF. Plan is eventual discharge to a facility or to home with caregivers under hospice care, once we can establish power of sonographer. He is essentially ready for discharge to the next site of care. Today is another avoidable day. (3) Pneumonia Resolved. Therapy has been completed with 3 days of azithromycin and 5 days of Rocephin. (4) Hypokalemia Resolved with treatment (5) Hyponatremia Resolved with treatment. No further iv fluids planned. No further labs, if possible. - Current Meds Current Meds: Current Medications Generic Name Dose Route Start Last Admin Trade Name Freq PRN Reason Stop Dose Admin Acetaminophen 650 mg 05/29/22 14:15 06/02/22 17:16 Acetaminophen 325 Mg Tablet PO 650 mg Q4HR PRN Administration Pain 1 to 4, or Fever Enoxaparin Sodium 40 mg 05/30/22 09:00 06/04/22 08:42 Enoxaparin 40 Mg/0.4 Ml Syringe SUBQ 40 mg DAILY MICHAELA Administration Morphine Sulfate 10 mg 06/02/22 18:42 06/03/22 15:25 Morphine Neema 10 Mg/0.5 Ml Oral Syringe PO 10 mg Q2HR PRN Administration PAIN Morphine Sulfate 5 mg 06/03/22 12:00 06/04/22 06:16 Morphine Neema 10 Mg/0.5 Ml Oral Syringe PO 5 mg Q6HR MICHAELA Administration Multi-Ingredient Ointment 1 applic 05/30/22 22:39 06/04/22 06:29 Zinc Oxide 20% Oint 30 Gm Tube TOP 1 applic PRN PRN Administration Skin Care Multivitamins/Minerals 1 tab 05/30/22 11:00 06/04/22 08:42 Multivitamin W/Minerals Tablet PO 1 tab DAILYWM MICHAELA Administration Polyethylene Glycol 17 gm 05/30/22 09:00 06/04/22 08:41 Polyethylene Glycol 3350 17 Gm Packet PO 17 gm DAILY MICHAELA Administration Saccharomyces Boulardii 250 mg 05/29/22 17:00 06/04/22 08:42 Saccharomyces Boulardii 250 Mg Capsule PO 250 mg BIDWM MICHAELA Administration Sodium Chloride 10 ml 05/29/22 17:00 06/04/22 08:46 Sodium Chloride Flush 0.9% 10 Ml Syringe IVP 10 ml 0100,0900,1700 MICHAELA Administration - Lab Result Fish Bone Diagrams: 06/01/22 04:43 06/01/22 04:43 Subjective - Subjective Patient Reports: Resting Comfortably, Pain (Describes pain in R lateral chest, it is slightly better controlled.) Nursing Reports: Other (Nutrition reported he is now eating and has gained 4 kg since being admitted.) Objective Vital Signs: Vital Signs - 24 hr 06/03/22 06/04/22 06/04/22 15:37 00:10 08:00 Temperature 36.6 C 36.5 C Heart Rate [ 69 67 66 Brachial] Respiratory 16 16 Rate Blood Pressure 107/56 L 114/52 L 117/52 L [Right Brachial artery] O2 Saturation 93 95 93 Oxygen O2 Source Room air I&O (Last 24 Hrs): Intake and Output Totals x24h 06/02/22 06/03/22 06/04/22 23:59 23:59 23:59 Intake Total 3765.34 1090 1300 Output Total 2600 600 300 Balance 1165.34 490 1000 General: Alert, No acute distress HEENT: Mucous membr. moist/pink, Other (Cachectic) Neuro: Alert, Non Focal Cardiovascular: Regular rate, No murmurs Respiratory: No respiratory distress, Breath sounds nml Abdomen: Normal bowel sounds, Soft Extremities: No edema, No tenderness/swelling - Results Results: Laboratory Results WBC 5.9 x10^3/uL (4.8-10.8) 06/01/22 04:43 RBC 4.13 10^6/uL (4.70-6.10) L 06/01/22 04:43 Hgb 10.6 g/dL (14.0-18.0) L 06/01/22 04:43 Hct 35.0 % (42.0-52.0) L 06/01/22 04:43 MCV 84.7 fL (80.0-94.0) 06/01/22 04:43 MCH 25.7 pg (27.0-31.0) L 06/01/22 04:43 MCHC 30.3 g/dL (32.0-36.0) L 06/01/22 04:43 RDW 16.5 % (12.0-15.0) H 06/01/22 04:43 Plt Count 200 10^3/uL (130-450) 06/01/22 04:43 MPV 9.0 fL (7.4-11.4) 06/01/22 04:43 Neut # (Auto) 4.6 10^3/uL (1.5-6.6) 06/01/22 04:43 Lymph # (Auto) 0.8 10^3/uL (1.5-3.5) L 06/01/22 04:43 [place] # (Auto) 0.4 10^3/uL (0.0-1.0) 06/01/22 04:43 Eos # (Auto) 0.1 10^3/uL (0.0-0.7) 06/01/22 04:43 Baso # (Auto) 0.0 10^3/uL (0.0-0.1) 06/01/22 04:43 Absolute Nucleated RBC 0.00 x10^3/uL 06/01/22 04:43 Nucleated RBC % 0.0 /100WBC 06/01/22 04:43 PT 13.8 secs (9.9-12.6) H 05/30/22 04:50 INR 1.3 (0.8-1.2) H 05/30/22 04:50 Sodium 139 mmol/L (135-145) 06/01/22 04:43 Potassium 4.1 mmol/L (3.5-5.0) 06/01/22 04:43 Chloride 102 mmol/L (101-111) 06/01/22 04:43 Carbon Dioxide 32 mmol/L (21-32) 06/01/22 04:43 Anion Gap 5.0 (6-13) L 06/01/22 04:43 BUN 13 mg/dL (6-20) 06/01/22 04:43 Creatinine 0.5 mg/dL (0.6-1.2) L 06/01/22 04:43 Estimated GFR (MDRD) 160 (>89) 06/01/22 04:43 Glucose 82 mg/dL (70-100) 06/01/22 04:43 Calcium 7.8 mg/dL (8.5-10.3) L 06/01/22 04:43 Phosphorus 1.1 mg/dL (2.5-4.6) L 05/30/22 04:50 Magnesium 2.0 mg/dL (1.7-2.8) 05/30/22 04:50 Total Bilirubin 0.8 mg/dL (0.2-1.0) 05/29/22 06:20 AST 20 IU/L (10-42) 05/29/22 06:20 ALT 17 IU/L (10-60) 05/29/22 06:20 Alkaline Phosphatase 58 IU/L (42-121) 05/29/22 06:20 Total Creatine Kinase 87 IU/L (22-269) 05/28/22 11:50 Total Protein 6.4 g/dL (6.7-8.2) L 05/29/22 06:20 Albumin 2.5 g/dL (3.2-5.5) L 05/29/22 06:20 Globulin 3.9 g/dL (2.1-4.2) 05/29/22 06:20 Albumin/Globulin Ratio 0.6 (1.0-2.2) L 05/29/22 06:20 Lipase 35 U/L (22-51) 05/29/22 06:20 TSH 2.68 uIU/mL (0.34-5.60) 05/30/22 04:50 Urine Color DARK YELLOW 05/28/22 12:07 Urine Clarity CLEAR (CLEAR) 05/28/22 12:07 Urine pH 6.0 PH (5.0-7.5) 05/28/22 12:07 Ur Specific [place] 1.025 (1.002-1.030) 05/28/22 12:07 Urine Protein 30 mg/dL (NEGATIVE) H 05/28/22 12:07 Urine Glucose (UA) NEGATIVE mg/dL (NEGATIVE) 05/28/22 12:07 Urine Ketones 15 mg/dL (NEGATIVE) H 05/28/22 12:07 Urine Occult Blood LARGE (NEGATIVE) H 05/28/22 12:07 Urine Nitrite NEGATIVE (NEGATIVE) 05/28/22 12:07 Urine Bilirubin NEGATIVE (NEGATIVE) 05/28/22 12:07 Urine Urobilinogen 1 (NORMAL) E.U./dL (NORMAL) 05/28/22 12:07 Ur Leukocyte Esterase NEGATIVE (NEGATIVE) 05/28/22 12:07 Urine RBC TNTC /HPF (0-5) H 05/28/22 12:07 Urine WBC 6-10 /HPF (0-3) H 05/28/22 12:07 Ur Epithelial Cells MOD Transitional /HPF (<= Few) H 05/28/22 12:07 Ur Squamous Epith Cells FEW Squamous (<= Few) 05/28/22 12:07 Urine Bacteria Few /HPF (None Seen) 05/28/22 12:07 Urine Casts 6-10 Hyaline Casts /LPF 05/28/22 12:07 Ur Microscopic Review INDICATED 05/28/22 12:07 Urine Culture Comments NOT INDICATED 05/28/22 12:07 Coronavirus (PCR) NEGATIVE 05/29/22 14:20 - Procedures Procedures: Procedures ENDO RECTUM POLYPECTOMY (04/27/15) ENDOSC POLYPECTOMY OF LG INTEST (04/27/15) EXCISION OF ASCENDING COLON, ENDO, DIAGN (05/02/17) EXCISION OF DESCENDING COLON, ENDO, DIAGN (05/02/17) EXCISION OF LEFT LOWER LEG SKIN, EXTERNAL APPROACH, DIAGN (11/16/20) EXCISION OF TRANSVERSE COLON, ENDO, DIAGN (05/02/17)
[2022-06-04] MEDS: MORPHINE SOL 10 MG/0.5 ML ORAL SYRINGE PO PRN (18:29)
[2022-06-05] MEDS: SODIUM CHLORIDE FLUSH 0.9% 10 ML SYRINGE IVP SCH ×3 (00:15→17:48)
[2022-06-05] MEDS: MORPHINE SOL 10 MG/0.5 ML ORAL SYRINGE PO SCH ×4 (00:15→17:48)
[2022-06-05] MEDS: polyethylene glycoL 3350 17 GM PACKET PO SCH (09:41)
[2022-06-05] MEDS: ENOXAPARIN 40 MG/0.4 ML SYRINGE SUBQ SCH (09:41)
[2022-06-05] MEDS: SACCHAROMYCES BOULARDII 250 MG CAPSULE PO SCH ×2 (09:41→17:48)
[2022-06-05] MEDS: MULTIVITAMIN W/MINERALS TABLET PO SCH (09:41)
--- NOTE | 2022-06-05 13:32 | PROVIDER PROGRESS NOTE ---
Assessment/Plan - Problem List (1) Metastatic lung cancer (metastasis from lung to other site) Qualifiers: Qualified Code(s): C34.90 - Malignant neoplasm of unspecified part of unspecified bronchus or lung Assessment/Plan: He has a right lower lobe lung neoplasm eroding through the right chest wall. This has resulted in chest wall pain, a profound decrease in functional status with cachexia, and immobility. He was too weak to even eat sometimes. He is lost 100 pounds. He has severe pain from the tumor eroding into his chest wall. We changed Roxanol drops to scheduled 5mg q6h and continue 10mg q2h prn. (2) Severe protein calorie malnutrition He has had failure to thrive, lost 100 pounds. We stopped his IV fluids June 02. We also removed his Marie and he needed a straight cath, but not needing the Marie put back yet. Since he is gaining some strength and able to improve his truncal stability. Physical therapy and Occupational Therapy are working with him and recommend a SNF. Plan is eventual discharge to a facility or to home with caregivers under hospice care, once we can establish power of securities attorney. He is essentially ready for discharge to the next site of care. Today is another avoidable day. (3) Pneumonia Resolved. Therapy has been completed with 3 days of azithromycin and 5 days of Rocephin. (4) Hypokalemia Resolved with treatment (5) Hyponatremia Resolved with treatment. No further iv fluids planned. No further labs, if possible. - Current Meds Current Meds: Current Medications Generic Name Dose Route Start Last Admin Trade Name Freq PRN Reason Stop Dose Admin Acetaminophen 650 mg 05/29/22 14:15 06/02/22 17:16 Acetaminophen 325 Mg Tablet PO 650 mg Q4HR PRN Administration Pain 1 to 4, or Fever Enoxaparin Sodium 40 mg 05/30/22 09:00 06/05/22 09:41 Enoxaparin 40 Mg/0.4 Ml Syringe SUBQ 40 mg DAILY MICHAELA Administration Morphine Sulfate 10 mg 06/02/22 18:42 06/04/22 18:29 Morphine Neema 10 Mg/0.5 Ml Oral Syringe PO 10 mg Q2HR PRN Administration PAIN Morphine Sulfate 5 mg 06/03/22 12:00 06/05/22 13:13 Morphine Neema 10 Mg/0.5 Ml Oral Syringe PO 5 mg Q6HR MICHAELA Administration Multi-Ingredient Ointment 1 applic 05/30/22 22:39 06/04/22 06:29 Zinc Oxide 20% Oint 30 Gm Tube TOP 1 applic PRN PRN Administration Skin Care Multivitamins/Minerals 1 tab 05/30/22 11:00 06/05/22 09:41 Multivitamin W/Minerals Tablet PO 1 tab DAILYWM MICHAELA Administration Polyethylene Glycol 17 gm 05/30/22 09:00 06/05/22 09:41 Polyethylene Glycol 3350 17 Gm Packet PO 17 gm DAILY MICHAELA Administration Saccharomyces Boulardii 250 mg 05/29/22 17:00 06/05/22 09:41 Saccharomyces Boulardii 250 Mg Capsule PO 250 mg BIDWM MICHAELA Administration Sodium Chloride 10 ml 05/29/22 17:00 06/05/22 09:41 Sodium Chloride Flush 0.9% 10 Ml Syringe IVP 10 ml 0100,0900,1700 MICHAELA Administration - Lab Result Fish Bone Diagrams: 06/01/22 04:43 06/01/22 04:43 Subjective - Subjective Patient Reports: Resting Comfortably, No Complaints Objective Vital Signs: Vital Signs - 24 hr 06/04/22 06/05/22 20:03 07:51 Temperature 37.3 C 36.5 C Heart Rate [ 69 69 Brachial] Respiratory 18 17 Rate Blood Pressure 107/48 L 107/49 L [Right Brachial artery] O2 Saturation 94 92 Oxygen O2 Source Room air I&O (Last 24 Hrs): Intake and Output Totals x24h 06/03/22 06/04/22 06/05/22 23:59 23:59 23:59 Intake Total 1090 2300 880 Output Total 600 1025 250 Balance 490 1275 630 General: Other (Sleepy, opens eyes and communicates minimally) HEENT: Mucous membr. moist/pink, Other (Disheveled ap[pearing) Neck: Supple, No JVD Neuro: Alert, Non Focal Cardiovascular: Regular rate Respiratory: No respiratory distress Abdomen: Soft Extremities: No edema - Results Results: Laboratory Results WBC 5.9 x10^3/uL (4.8-10.8) 06/01/22 04:43 RBC 4.13 10^6/uL (4.70-6.10) L 06/01/22 04:43 Hgb 10.6 g/dL (14.0-18.0) L 06/01/22 04:43 Hct 35.0 % (42.0-52.0) L 06/01/22 04:43 MCV 84.7 fL (80.0-94.0) 06/01/22 04:43 MCH 25.7 pg (27.0-31.0) L 06/01/22 04:43 MCHC 30.3 g/dL (32.0-36.0) L 06/01/22 04:43 RDW 16.5 % (12.0-15.0) H 06/01/22 04:43 Plt Count 200 10^3/uL (130-450) 06/01/22 04:43 MPV 9.0 fL (7.4-11.4) 06/01/22 04:43 Neut # (Auto) 4.6 10^3/uL (1.5-6.6) 06/01/22 04:43 Lymph # (Auto) 0.8 10^3/uL (1.5-3.5) L 06/01/22 04:43 [place] # (Auto) 0.4 10^3/uL (0.0-1.0) 06/01/22 04:43 Eos # (Auto) 0.1 10^3/uL (0.0-0.7) 06/01/22 04:43 Baso # (Auto) 0.0 10^3/uL (0.0-0.1) 06/01/22 04:43 Absolute Nucleated RBC 0.00 x10^3/uL 06/01/22 04:43 Nucleated RBC % 0.0 /100WBC 06/01/22 04:43 PT 13.8 secs (9.9-12.6) H 05/30/22 04:50 INR 1.3 (0.8-1.2) H 05/30/22 04:50 Sodium 139 mmol/L (135-145) 06/01/22 04:43 Potassium 4.1 mmol/L (3.5-5.0) 06/01/22 04:43 Chloride 102 mmol/L (101-111) 06/01/22 04:43 Carbon Dioxide 32 mmol/L (21-32) 06/01/22 04:43 Anion Gap 5.0 (6-13) L 06/01/22 04:43 BUN 13 mg/dL (6-20) 06/01/22 04:43 Creatinine 0.5 mg/dL (0.6-1.2) L 06/01/22 04:43 Estimated GFR (MDRD) 160 (>89) 06/01/22 04:43 Glucose 82 mg/dL (70-100) 06/01/22 04:43 Calcium 7.8 mg/dL (8.5-10.3) L 06/01/22 04:43 Phosphorus 1.1 mg/dL (2.5-4.6) L 05/30/22 04:50 Magnesium 2.0 mg/dL (1.7-2.8) 05/30/22 04:50 Total Bilirubin 0.8 mg/dL (0.2-1.0) 05/29/22 06:20 AST 20 IU/L (10-42) 05/29/22 06:20 ALT 17 IU/L (10-60) 05/29/22 06:20 Alkaline Phosphatase 58 IU/L (42-121) 05/29/22 06:20 Total Creatine Kinase 87 IU/L (22-269) 05/28/22 11:50 Total Protein 6.4 g/dL (6.7-8.2) L 05/29/22 06:20 Albumin 2.5 g/dL (3.2-5.5) L 05/29/22 06:20 Globulin 3.9 g/dL (2.1-4.2) 05/29/22 06:20 Albumin/Globulin Ratio 0.6 (1.0-2.2) L 05/29/22 06:20 Lipase 35 U/L (22-51) 05/29/22 06:20 TSH 2.68 uIU/mL (0.34-5.60) 05/30/22 04:50 Urine Color DARK YELLOW 05/28/22 12:07 Urine Clarity CLEAR (CLEAR) 05/28/22 12:07 Urine pH 6.0 PH (5.0-7.5) 05/28/22 12:07 Ur Specific [place] 1.025 (1.002-1.030) 05/28/22 12:07 Urine Protein 30 mg/dL (NEGATIVE) H 05/28/22 12:07 Urine Glucose (UA) NEGATIVE mg/dL (NEGATIVE) 05/28/22 12:07 Urine Ketones 15 mg/dL (NEGATIVE) H 05/28/22 12:07 Urine Occult Blood LARGE (NEGATIVE) H 05/28/22 12:07 Urine Nitrite NEGATIVE (NEGATIVE) 05/28/22 12:07 Urine Bilirubin NEGATIVE (NEGATIVE) 05/28/22 12:07 Urine Urobilinogen 1 (NORMAL) E.U./dL (NORMAL) 05/28/22 12:07 Ur Leukocyte Esterase NEGATIVE (NEGATIVE) 05/28/22 12:07 Urine RBC TNTC /HPF (0-5) H 05/28/22 12:07 Urine WBC 6-10 /HPF (0-3) H 05/28/22 12:07 Ur Epithelial Cells MOD Transitional /HPF (<= Few) H 05/28/22 12:07 Ur Squamous Epith Cells FEW Squamous (<= Few) 05/28/22 12:07 Urine Bacteria Few /HPF (None Seen) 05/28/22 12:07 Urine Casts 6-10 Hyaline Casts /LPF 05/28/22 12:07 Ur Microscopic Review INDICATED 05/28/22 12:07 Urine Culture Comments NOT INDICATED 05/28/22 12:07 Coronavirus (PCR) NEGATIVE 05/29/22 14:20 - Procedures Procedures: Procedures ENDO RECTUM POLYPECTOMY (04/27/15) ENDOSC POLYPECTOMY OF LG INTEST (04/27/15) EXCISION OF ASCENDING COLON, ENDO, DIAGN (05/02/17) EXCISION OF DESCENDING COLON, ENDO, DIAGN (05/02/17) EXCISION OF LEFT LOWER LEG SKIN, EXTERNAL APPROACH, DIAGN (11/16/20) EXCISION OF TRANSVERSE COLON, ENDO, DIAGN (05/02/17)
[2022-06-06] MEDS: MORPHINE SOL 10 MG/0.5 ML ORAL SYRINGE PO SCH ×5 (00:33→23:52)
[2022-06-06] MEDS: SODIUM CHLORIDE FLUSH 0.9% 10 ML SYRINGE IVP SCH ×4 (00:34→23:53)
[2022-06-06] MEDS: SACCHAROMYCES BOULARDII 250 MG CAPSULE PO SCH ×2 (08:20→17:53)
[2022-06-06] MEDS: ENOXAPARIN 40 MG/0.4 ML SYRINGE SUBQ SCH (08:20)
[2022-06-06] MEDS: MULTIVITAMIN W/MINERALS TABLET PO SCH (08:20)
[2022-06-06] MEDS: polyethylene glycoL 3350 17 GM PACKET PO SCH (08:23)
--- NOTE | 2022-06-06 13:37 | PROVIDER PROGRESS NOTE ---
Assessment/Plan - Problem List (1) Metastatic lung cancer (metastasis from lung to other site) Qualifiers: Qualified Code(s): C34.90 - Malignant neoplasm of unspecified part of unspecified bronchus or lung Assessment/Plan: He has a right lower lobe lung neoplasm eroding through the right chest wall. This has resulted in chest wall pain, a profound decrease in functional status with cachexia, and immobility. He was too weak to even eat sometimes. He is lost 100 pounds. He has severe pain from the tumor eroding into his chest wall. We changed Roxanol drops to scheduled 5mg q6h and continue 10mg q2h prn. He has been more somnolent with this, but more comfortable. (2) Severe protein calorie malnutrition He has had failure to thrive, lost 100 pounds. We stopped his IV fluids June 02. We also removed his Marie and he needed a straight cath, but not needing the Marie put back yet. Since he is gaining some strength and able to improve his truncal stability. Physical therapy and Occupational Therapy are working with him and recommend a SNF. Plan is eventual discharge to a facility or to home with caregivers under hospice care, once we can establish power of criminal attorney. He is essentially ready for discharge to the next site of care. Today is another avoidable day. Will assess his BMP in AM (3) Pneumonia Resolved. Therapy has been completed with 3 days of azithromycin and 5 days of Rocephin. (4) Hypokalemia Resolved with treatment (5) Hyponatremia Resolved with treatment. No further iv fluids planned. No further labs, if possible. - Current Meds Current Meds: Current Medications Generic Name Dose Route Start Last Admin Trade Name Freq PRN Reason Stop Dose Admin Acetaminophen 650 mg 05/29/22 14:15 06/02/22 17:16 Acetaminophen 325 Mg Tablet PO 650 mg Q4HR PRN Administration Pain 1 to 4, or Fever Enoxaparin Sodium 40 mg 05/30/22 09:00 06/06/22 08:20 Enoxaparin 40 Mg/0.4 Ml Syringe SUBQ 40 mg DAILY MICHAELA Administration Morphine Sulfate 10 mg 06/02/22 18:42 06/04/22 18:29 Morphine Neema 10 Mg/0.5 Ml Oral Syringe PO 10 mg Q2HR PRN Administration PAIN Morphine Sulfate 5 mg 06/03/22 12:00 06/06/22 11:27 Morphine Neema 10 Mg/0.5 Ml Oral Syringe PO 5 mg Q6HR MICHAELA Administration Multi-Ingredient Ointment 1 applic 05/30/22 22:39 06/04/22 06:29 Zinc Oxide 20% Oint 30 Gm Tube TOP 1 applic PRN PRN Administration Skin Care Multivitamins/Minerals 1 tab 05/30/22 11:00 06/06/22 08:20 Multivitamin W/Minerals Tablet PO 1 tab DAILYWM MICHAELA Administration Polyethylene Glycol 17 gm 05/30/22 09:00 06/06/22 08:23 Polyethylene Glycol 3350 17 Gm Packet PO Not Given DAILY MICHAELA Saccharomyces Boulardii 250 mg 05/29/22 17:00 06/06/22 08:20 Saccharomyces Boulardii 250 Mg Capsule PO 250 mg BIDWM MICHAELA Administration Sodium Chloride 10 ml 05/29/22 17:00 06/06/22 08:21 Sodium Chloride Flush 0.9% 10 Ml Syringe IVP 10 ml 0100,0900,1700 MICHAELA Administration - Lab Result Fish Bone Diagrams: 06/01/22 04:43 06/01/22 04:43 - Additional Planning My Orders: My Active Orders 06/05/22 13:32 Shower [RC] PRN 06/07/22 05:00 BMP - BASIC METABOLIC PANEL [CHEM] DAILYLAB MAGNESIUM [CHEM] DAILYLAB Subjective - Subjective Patient Reports: Resting Comfortably, No Complaints Objective Vital Signs: Vital Signs - 24 hr 06/05/22 06/06/22 15:53 08:05 Temperature 36.7 C 36.5 C Heart Rate [ 67 65 Brachial] Respiratory 20 16 Rate Blood Pressure 106/40 L 111/47 L [Right Brachial artery] O2 Saturation 95 93 Oxygen O2 Source Room air I&O (Last 24 Hrs): Intake and Output Totals x24h 06/04/22 06/05/22 06/06/22 23:59 23:59 23:59 Intake Total 2300 1480 1060 Output Total 1025 775 150 Balance 1275 705 910 General: Other (Asleep, but awakens and speaks) HEENT: Mucous membr. moist/pink, Other (Cachectic) Neck: Supple Cardiovascular: Regular rate Respiratory: No respiratory distress Abdomen: Soft Extremities: No edema - Results Results: Laboratory Results WBC 5.9 x10^3/uL (4.8-10.8) 06/01/22 04:43 RBC 4.13 10^6/uL (4.70-6.10) L 06/01/22 04:43 Hgb 10.6 g/dL (14.0-18.0) L 06/01/22 04:43 Hct 35.0 % (42.0-52.0) L 06/01/22 04:43 MCV 84.7 fL (80.0-94.0) 06/01/22 04:43 MCH 25.7 pg (27.0-31.0) L 06/01/22 04:43 MCHC 30.3 g/dL (32.0-36.0) L 06/01/22 04:43 RDW 16.5 % (12.0-15.0) H 06/01/22 04:43 Plt Count 200 10^3/uL (130-450) 06/01/22 04:43 MPV 9.0 fL (7.4-11.4) 06/01/22 04:43 Neut # (Auto) 4.6 10^3/uL (1.5-6.6) 06/01/22 04:43 Lymph # (Auto) 0.8 10^3/uL (1.5-3.5) L 06/01/22 04:43 [place] # (Auto) 0.4 10^3/uL (0.0-1.0) 06/01/22 04:43 Eos # (Auto) 0.1 10^3/uL (0.0-0.7) 06/01/22 04:43 Baso # (Auto) 0.0 10^3/uL (0.0-0.1) 06/01/22 04:43 Absolute Nucleated RBC 0.00 x10^3/uL 06/01/22 04:43 Nucleated RBC % 0.0 /100WBC 06/01/22 04:43 PT 13.8 secs (9.9-12.6) H 05/30/22 04:50 INR 1.3 (0.8-1.2) H 05/30/22 04:50 Sodium 139 mmol/L (135-145) 06/01/22 04:43 Potassium 4.1 mmol/L (3.5-5.0) 06/01/22 04:43 Chloride 102 mmol/L (101-111) 06/01/22 04:43 Carbon Dioxide 32 mmol/L (21-32) 06/01/22 04:43 Anion Gap 5.0 (6-13) L 06/01/22 04:43 BUN 13 mg/dL (6-20) 06/01/22 04:43 Creatinine 0.5 mg/dL (0.6-1.2) L 06/01/22 04:43 Estimated GFR (MDRD) 160 (>89) 06/01/22 04:43 Glucose 82 mg/dL (70-100) 06/01/22 04:43 Calcium 7.8 mg/dL (8.5-10.3) L 06/01/22 04:43 Phosphorus 1.1 mg/dL (2.5-4.6) L 05/30/22 04:50 Magnesium 2.0 mg/dL (1.7-2.8) 05/30/22 04:50 Total Bilirubin 0.8 mg/dL (0.2-1.0) 05/29/22 06:20 AST 20 IU/L (10-42) 05/29/22 06:20 ALT 17 IU/L (10-60) 05/29/22 06:20 Alkaline Phosphatase 58 IU/L (42-121) 05/29/22 06:20 Total Creatine Kinase 87 IU/L (22-269) 05/28/22 11:50 Total Protein 6.4 g/dL (6.7-8.2) L 05/29/22 06:20 Albumin 2.5 g/dL (3.2-5.5) L 05/29/22 06:20 Globulin 3.9 g/dL (2.1-4.2) 05/29/22 06:20 Albumin/Globulin Ratio 0.6 (1.0-2.2) L 05/29/22 06:20 Lipase 35 U/L (22-51) 05/29/22 06:20 TSH 2.68 uIU/mL (0.34-5.60) 05/30/22 04:50 Urine Color DARK YELLOW 05/28/22 12:07 Urine Clarity CLEAR (CLEAR) 05/28/22 12:07 Urine pH 6.0 PH (5.0-7.5) 05/28/22 12:07 Ur Specific [place] 1.025 (1.002-1.030) 05/28/22 12:07 Urine Protein 30 mg/dL (NEGATIVE) H 05/28/22 12:07 Urine Glucose (UA) NEGATIVE mg/dL (NEGATIVE) 05/28/22 12:07 Urine Ketones 15 mg/dL (NEGATIVE) H 05/28/22 12:07 Urine Occult Blood LARGE (NEGATIVE) H 05/28/22 12:07 Urine Nitrite NEGATIVE (NEGATIVE) 05/28/22 12:07 Urine Bilirubin NEGATIVE (NEGATIVE) 05/28/22 12:07 Urine Urobilinogen 1 (NORMAL) E.U./dL (NORMAL) 05/28/22 12:07 Ur Leukocyte Esterase NEGATIVE (NEGATIVE) 05/28/22 12:07 Urine RBC TNTC /HPF (0-5) H 05/28/22 12:07 Urine WBC 6-10 /HPF (0-3) H 05/28/22 12:07 Ur Epithelial Cells MOD Transitional /HPF (<= Few) H 05/28/22 12:07 Ur Squamous Epith Cells FEW Squamous (<= Few) 05/28/22 12:07 Urine Bacteria Few /HPF (None Seen) 05/28/22 12:07 Urine Casts 6-10 Hyaline Casts /LPF 05/28/22 12:07 Ur Microscopic Review INDICATED 05/28/22 12:07 Urine Culture Comments NOT INDICATED 05/28/22 12:07 Coronavirus (PCR) NEGATIVE 05/29/22 14:20 - Procedures Procedures: Procedures ENDO RECTUM POLYPECTOMY (04/27/15) ENDOSC POLYPECTOMY OF LG INTEST (04/27/15) EXCISION OF ASCENDING COLON, ENDO, DIAGN (05/02/17) EXCISION OF DESCENDING COLON, ENDO, DIAGN (05/02/17) EXCISION OF LEFT LOWER LEG SKIN, EXTERNAL APPROACH, DIAGN (11/16/20) EXCISION OF TRANSVERSE COLON, ENDO, DIAGN (05/02/17)
[2022-06-07 05:20] LABS: CALCIUM 7.9 mg/dL (8.5-10.3); CREATININE 0.6 mg/dL (0.6-1.2); MAGNESIUM 2.1 mg/dL (1.7-2.8); POTASSIUM 3.8 mmol/L (3.5-5.0)
[2022-06-07] MEDS: MORPHINE SOL 10 MG/0.5 ML ORAL SYRINGE PO SCH ×3 (05:48→17:07)
[2022-06-07] MEDS: MULTIVITAMIN W/MINERALS TABLET PO SCH (07:55)
[2022-06-07] MEDS: SACCHAROMYCES BOULARDII 250 MG CAPSULE PO SCH ×2 (07:55→17:07)
[2022-06-07] MEDS: ENOXAPARIN 40 MG/0.4 ML SYRINGE SUBQ SCH (07:55)
[2022-06-07] MEDS: polyethylene glycoL 3350 17 GM PACKET PO SCH (07:55)
[2022-06-07] MEDS: SODIUM CHLORIDE FLUSH 0.9% 10 ML SYRINGE IVP SCH ×2 (07:56→17:07)
[2022-06-07] MEDS: MORPHINE SOL 10 MG/0.5 ML ORAL SYRINGE PO PRN ×2 (12:47→17:07)
--- NOTE | 2022-06-07 12:51 | PROVIDER PROGRESS NOTE ---
Assessment/Plan - Problem List (1) Metastatic lung cancer (metastasis from lung to other site) Qualifiers: Qualified Code(s): C34.90 - Malignant neoplasm of unspecified part of unspecified bronchus or lung Assessment/Plan: He has a right lower lobe lung neoplasm eroding through the right chest wall. This has resulted in chest wall pain, a profound decrease in functional status with cachexia, and immobility. He was too weak to even eat sometimes. He is lost 100 pounds. He has severe pain from the tumor eroding into his chest wall. We changed Roxanol drops to scheduled 5mg q6h and continue 10mg q2h prn. He has been more somnolent with this, but more comfortable. (2) Severe protein calorie malnutrition He has had failure to thrive, lost 100 pounds. We stopped his IV fluids June 02. We also removed his Marie and he needed a straight cath, but not needing the Marie put back yet. Since he is gaining some strength and able to improve his truncal stability. Physical therapy and Occupational Therapy are working with him and recommend a SNF. Plan is eventual discharge to a facility or to home with caregivers under hospice care, once we can establish power of correctional captain. He is essentially ready for discharge to the next site of care. Today is another avoidable day. Will assess his BMP in AM (3) Weakness He has been seen daily by PT and OT. Both PT and OT feel that he has plateaued starting today and therefore he does not need a SNF for further rehab. Placement for long-term care is now the plan. Because he cannot make decisions on his own, social work is trying to contact family members. Today social work learned that he still has a who is alive but has paranoid schizophrenia and a stepson. (4) CKD Labs were done this morning since they had not been done for nearly a week and these do show continued but stable CKD. No new orders needed. (5) Pneumonia Resolved. Therapy has been completed with 3 days of azithromycin and 5 days of Rocephin. (6) Hypokalemia Resolved with treatment (7) Hyponatremia Resolved with treatment. No further iv fluids planned. No further labs, if possible. - Current Meds Current Meds: Current Medications Generic Name Dose Route Start Last Admin Trade Name Freq PRN Reason Stop Dose Admin Acetaminophen 650 mg 05/29/22 14:15 06/02/22 17:16 Acetaminophen 325 Mg Tablet PO 650 mg Q4HR PRN Administration Pain 1 to 4, or Fever Enoxaparin Sodium 40 mg 05/30/22 09:00 06/07/22 07:55 Enoxaparin 40 Mg/0.4 Ml Syringe SUBQ 40 mg DAILY MICHAELA Administration Morphine Sulfate 10 mg 06/02/22 18:42 06/07/22 12:47 Morphine Neema 10 Mg/0.5 Ml Oral Syringe PO 10 mg Q2HR PRN Administration PAIN Morphine Sulfate 5 mg 06/03/22 12:00 06/07/22 12:48 Morphine Neema 10 Mg/0.5 Ml Oral Syringe PO Not Given Q6HR MICHAELA Multi-Ingredient Ointment 1 applic 05/30/22 22:39 06/04/22 06:29 Zinc Oxide 20% Oint 30 Gm Tube TOP 1 applic PRN PRN Administration Skin Care Multivitamins/Minerals 1 tab 05/30/22 11:00 06/07/22 07:55 Multivitamin W/Minerals Tablet PO 1 tab DAILYWM MICHAELA Administration Polyethylene Glycol 17 gm 05/30/22 09:00 06/07/22 07:55 Polyethylene Glycol 3350 17 Gm Packet PO 17 gm DAILY MICHAELA Administration Saccharomyces Boulardii 250 mg 05/29/22 17:00 06/07/22 07:55 Saccharomyces Boulardii 250 Mg Capsule PO 250 mg BIDWM MICHAELA Administration Sodium Chloride 10 ml 05/29/22 17:00 06/07/22 07:56 Sodium Chloride Flush 0.9% 10 Ml Syringe IVP 10 ml 0100,0900,1700 MICHAELA Administration - Lab Result Fish Bone Diagrams: 06/01/22 04:43 06/07/22 05:01 Subjective - Subjective Patient Reports: Resting Comfortably, Other (Pain is "mostly under control") Objective Vital Signs: Vital Signs - 24 hr 06/06/22 06/06/22 06/07/22 15:59 23:54 07:21 Temperature 36.9 C 36.8 C 36.9 C Heart Rate [ 66 68 68 Brachial] Respiratory 24 16 18 Rate Blood Pressure 106/46 L 104/46 L 100/43 L [Right Brachial artery] O2 Saturation 94 93 96 Oxygen O2 Source Room air I&O (Last 24 Hrs): Intake and Output Totals x24h 09/06/06/22 06/07/22 23:59 23:59 23:59 Intake Total 1480 1617 777 Output Total 775 150 Balance 705 1467 777 General: Alert, Oriented x3, No acute distress HEENT: Mucous membr. moist/pink, Other (disheveled) Neck: Supple, No JVD Neuro: Alert, Non Focal, Other (Poor memory) Cardiovascular: Regular rate Respiratory: No respiratory distress Abdomen: Soft Extremities: No edema Skin: No rashes - Results Results: Laboratory Results WBC 5.9 x10^3/uL (4.8-10.8) 06/01/22 04:43 RBC 4.13 10^6/uL (4.70-6.10) L 06/01/22 04:43 Hgb 10.6 g/dL (14.0-18.0) L 06/01/22 04:43 Hct 35.0 % (42.0-52.0) L 06/01/22 04:43 MCV 84.7 fL (80.0-94.0) 06/01/22 04:43 MCH 25.7 pg (27.0-31.0) L 06/01/22 04:43 MCHC 30.3 g/dL (32.0-36.0) L 06/01/22 04:43 RDW 16.5 % (12.0-15.0) H 06/01/22 04:43 Plt Count 200 10^3/uL (130-450) 06/01/22 04:43 MPV 9.0 fL (7.4-11.4) 06/01/22 04:43 Neut # (Auto) 4.6 10^3/uL (1.5-6.6) 06/01/22 04:43 Lymph # (Auto) 0.8 10^3/uL (1.5-3.5) L 06/01/22 04:43 [place] # (Auto) 0.4 10^3/uL (0.0-1.0) 06/01/22 04:43 Eos # (Auto) 0.1 10^3/uL (0.0-0.7) 06/01/22 04:43 Baso # (Auto) 0.0 10^3/uL (0.0-0.1) 06/01/22 04:43 Absolute Nucleated RBC 0.00 x10^3/uL 06/01/22 04:43 Nucleated RBC % 0.0 /100WBC 06/01/22 04:43 PT 13.8 secs (9.9-12.6) H 05/30/22 04:50 INR 1.3 (0.8-1.2) H 05/30/22 04:50 Sodium 132 mmol/L (135-145) L 06/07/22 05:01 Potassium 3.8 mmol/L (3.5-5.0) 06/07/22 05:01 Chloride 96 mmol/L (101-111) L 06/07/22 05:01 Carbon Dioxide 28 mmol/L (21-32) 06/07/22 05:01 Anion Gap 8.0 (6-13) 06/07/22 05:01 BUN 13 mg/dL (6-20) 06/07/22 05:01 Creatinine 0.6 mg/dL (0.6-1.2) 06/07/22 05:01 Estimated GFR (MDRD) 129 (>89) 06/07/22 05:01 Glucose 125 mg/dL (70-100) H 06/07/22 05:01 Calcium 7.9 mg/dL (8.5-10.3) L 06/07/22 05:01 Phosphorus 1.1 mg/dL (2.5-4.6) L 05/30/22 04:50 Magnesium 2.1 mg/dL (1.7-2.8) 06/07/22 05:01 Total Bilirubin 0.8 mg/dL (0.2-1.0) 05/29/22 06:20 AST 20 IU/L (10-42) 05/29/22 06:20 ALT 17 IU/L (10-60) 05/29/22 06:20 Alkaline Phosphatase 58 IU/L (42-121) 05/29/22 06:20 Total Creatine Kinase 87 IU/L (22-269) 05/28/22 11:50 Total Protein 6.4 g/dL (6.7-8.2) L 05/29/22 06:20 Albumin 2.5 g/dL (3.2-5.5) L 05/29/22 06:20 Globulin 3.9 g/dL (2.1-4.2) 05/29/22 06:20 Albumin/Globulin Ratio 0.6 (1.0-2.2) L 05/29/22 06:20 Lipase 35 U/L (22-51) 05/29/22 06:20 TSH 2.68 uIU/mL (0.34-5.60) 05/30/22 04:50 Urine Color DARK YELLOW 05/28/22 12:07 Urine Clarity CLEAR (CLEAR) 05/28/22 12:07 Urine pH 6.0 PH (5.0-7.5) 05/28/22 12:07 Ur Specific [place] 1.025 (1.002-1.030) 05/28/22 12:07 Urine Protein 30 mg/dL (NEGATIVE) H 05/28/22 12:07 Urine Glucose (UA) NEGATIVE mg/dL (NEGATIVE) 05/28/22 12:07 Urine Ketones 15 mg/dL (NEGATIVE) H 05/28/22 12:07 Urine Occult Blood LARGE (NEGATIVE) H 05/28/22 12:07 Urine Nitrite NEGATIVE (NEGATIVE) 05/28/22 12:07 Urine Bilirubin NEGATIVE (NEGATIVE) 05/28/22 12:07 Urine Urobilinogen 1 (NORMAL) E.U./dL (NORMAL) 05/28/22 12:07 Ur Leukocyte Esterase NEGATIVE (NEGATIVE) 05/28/22 12:07 Urine RBC TNTC /HPF (0-5) H 05/28/22 12:07 Urine WBC 6-10 /HPF (0-3) H 05/28/22 12:07 Ur Epithelial Cells MOD Transitional /HPF (<= Few) H 05/28/22 12:07 Ur Squamous Epith Cells FEW Squamous (<= Few) 05/28/22 12:07 Urine Bacteria Few /HPF (None Seen) 05/28/22 12:07 Urine Casts 6-10 Hyaline Casts /LPF 05/28/22 12:07 Ur Microscopic Review INDICATED 05/28/22 12:07 Urine Culture Comments NOT INDICATED 05/28/22 12:07 Coronavirus (PCR) NEGATIVE 05/29/22 14:20 - Procedures Procedures: Procedures ENDO RECTUM POLYPECTOMY (04/27/15) ENDOSC POLYPECTOMY OF LG INTEST (04/27/15) EXCISION OF ASCENDING COLON, ENDO, DIAGN (05/02/17) EXCISION OF DESCENDING COLON, ENDO, DIAGN (05/02/17) EXCISION OF LEFT LOWER LEG SKIN, EXTERNAL APPROACH, DIAGN (11/16/20) EXCISION OF TRANSVERSE COLON, ENDO, DIAGN (05/02/17)
[2022-06-08] MEDS: MORPHINE SOL 10 MG/0.5 ML ORAL SYRINGE PO SCH ×4 (01:04→17:45)
[2022-06-08] MEDS: SODIUM CHLORIDE FLUSH 0.9% 10 ML SYRINGE IVP SCH ×3 (01:05→17:06)
[2022-06-08] MEDS: polyethylene glycoL 3350 17 GM PACKET PO SCH (08:06)
[2022-06-08] MEDS: MULTIVITAMIN W/MINERALS TABLET PO SCH (08:06)
[2022-06-08] MEDS: SACCHAROMYCES BOULARDII 250 MG CAPSULE PO SCH ×2 (08:06→17:06)
[2022-06-08] MEDS: ENOXAPARIN 40 MG/0.4 ML SYRINGE SUBQ SCH (08:06)
--- NOTE | 2022-06-08 10:49 | PROVIDER PROGRESS NOTE ---
Assessment/Plan - Problem List (1) Metastatic lung cancer (metastasis from lung to other site) Qualifiers: Qualified Code(s): C34.90 - Malignant neoplasm of unspecified part of unspecified bronchus or lung Assessment/Plan: He has a right lower lobe lung neoplasm eroding through the right chest wall. This has resulted in chest wall pain, a profound decrease in functional status with cachexia, and immobility. He was too weak to even eat sometimes. He is lost 100 pounds. He has severe pain from the tumor eroding into his chest wall. We changed Roxanol drops to scheduled 5mg q6h and continue 10mg q2h prn. He has been more comfortable. (2) Cognitive impairment He had a [facility] cognitive eval done 05/29/22 and scored 8/30. Because he cannot make decisions on his own, social work has been trying to contact family members. On 06/07 social work learned that he still has a who is alive but has paranoid schizophrenia and also has a "stepson", Yasmany, who lives in [place], and is planning on visiting. I told the patient this today and qasked if Yasmany was officially adopted and the patient cannot remember. The patient thinks he last saw Yasmany when Yasmany was a teenager. Plan is eventual discharge to a facility for long-term care or to home with caregivers or under hospice care, once we can establish power of claim attorney or who can legally makes decisions for him. (3) Severe protein calorie malnutrition He has had failure to thrive, lost 100 pounds. We stopped his IV fluids June 02. We also removed his Marie and he needed a straight cath, but not needing the Marie put back yet. Since he is gaining some strength and able to improve his truncal stability. Physical therapy and Occupational Therapy are working with him and recommended a SNF, but now he has plateaued, no longer needs rehab at SNF, but needs detention placement. He is essentially ready for discharge to the next site of care. Today is anothe r avoidable day. (4) Weakness He has been seen daily by PT and OT. Both PT and OT feel that he has plateaued and therefore he does not need a SNF for further rehab. (5) CKD Labs were done this morning since they had not been done for nearly a week and these do show continued but stable CKD. No new orders needed. (6) Pneumonia Resolved. Therapy has been completed with 3 days of azithromycin and 5 days of Rocephin. (7) Hypokalemia Resolved with treatment (8) Hyponatremia Resolved with treatment. No further iv fluids planned. No further labs, if possible. - Current Meds Current Meds: Current Medications Generic Name Dose Route Start Last Admin Trade Name Freq PRN Reason Stop Dose Admin Acetaminophen 650 mg 05/29/22 14:15 06/02/22 17:16 Acetaminophen 325 Mg Tablet PO 650 mg Q4HR PRN Administration Pain 1 to 4, or Fever Enoxaparin Sodium 40 mg 05/30/22 09:00 06/08/22 08:06 Enoxaparin 40 Mg/0.4 Ml Syringe SUBQ 40 mg DAILY MICHAELA Administration Morphine Sulfate 10 mg 06/02/22 18:42 06/07/22 17:07 Morphine Neema 10 Mg/0.5 Ml Oral Syringe PO 10 mg Q2HR PRN Administration PAIN Morphine Sulfate 5 mg 06/03/22 12:00 06/08/22 06:53 Morphine Neema 10 Mg/0.5 Ml Oral Syringe PO 5 mg Q6HR MICHAELA Administration Multi-Ingredient Ointment 1 applic 05/30/22 22:39 06/04/22 06:29 Zinc Oxide 20% Oint 30 Gm Tube TOP 1 applic PRN PRN Administration Skin Care Multivitamins/Minerals 1 tab 05/30/22 11:00 06/08/22 08:06 Multivitamin W/Minerals Tablet PO 1 tab DAILYWM MICHAELA Administration Polyethylene Glycol 17 gm 05/30/22 09:00 06/08/22 08:06 Polyethylene Glycol 3350 17 Gm Packet PO Not Given DAILY MICHAELA Saccharomyces Boulardii 250 mg 05/29/22 17:00 06/08/22 08:06 Saccharomyces Boulardii 250 Mg Capsule PO 250 mg BIDWM MICHAELA Administration Sodium Chloride 10 ml 05/29/22 17:00 06/08/22 08:07 Sodium Chloride Flush 0.9% 10 Ml Syringe IVP 10 ml 0100,0900,1700 MICHAELA Administration - Lab Result Fish Bone Diagrams: 06/01/22 04:43 06/07/22 05:01 Subjective - Subjective Patient Reports: Resting Comfortably, No Complaints Objective Vital Signs: Vital Signs - 24 hr 06/07/22 06/08/22 06/08/22 16:07 01:16 08:47 Temperature 36.8 C 36.6 C 36.6 C Heart Rate [ 70 72 67 Brachial] Respiratory 28 H 16 20 Rate Blood Pressure 137/52 H 122/65 106/52 L [Right Brachial artery] O2 Saturation 94 94 94 Oxygen O2 Source Room air I&O (Last 24 Hrs): Intake and Output Totals x24h 06/06/22 06/07/22 06/08/22 23:59 23:59 23:59 Intake Total 1617 1387 480 Output Total 150 750 Balance 1467 1387 -270 General: Alert, Other (Cleaned and shaven. Cachectic) HEENT: Atraumatic, EOMI, Other (Poor dentition, many missing teeth) Neck: Supple, No JVD Neuro: Alert, Non Focal, Other (Poor memory) Cardiovascular: Regular rate, No murmurs Respiratory: No respiratory distress, Breath sounds nml Abdomen: Soft Extremities: No edema - Results Results: Laboratory Results WBC 5.9 x10^3/uL (4.8-10.8) 06/01/22 04:43 RBC 4.13 10^6/uL (4.70-6.10) L 06/01/22 04:43 Hgb 10.6 g/dL (14.0-18.0) L 06/01/22 04:43 Hct 35.0 % (42.0-52.0) L 06/01/22 04:43 MCV 84.7 fL (80.0-94.0) 06/01/22 04:43 MCH 25.7 pg (27.0-31.0) L 06/01/22 04:43 MCHC 30.3 g/dL (32.0-36.0) L 06/01/22 04:43 RDW 16.5 % (12.0-15.0) H 06/01/22 04:43 Plt Count 200 10^3/uL (130-450) 06/01/22 04:43 MPV 9.0 fL (7.4-11.4) 06/01/22 04:43 Neut # (Auto) 4.6 10^3/uL (1.5-6.6) 06/01/22 04:43 Lymph # (Auto) 0.8 10^3/uL (1.5-3.5) L 06/01/22 04:43 Hunt # (Auto) 0.4 10^3/uL (0.0-1.0) 06/01/22 04:43 Eos # (Auto) 0.1 10^3/uL (0.0-0.7) 06/01/22 04:43 Baso # (Auto) 0.0 10^3/uL (0.0-0.1) 06/01/22 04:43 Absolute Nucleated RBC 0.00 x10^3/uL 06/01/22 04:43 Nucleated RBC % 0.0 /100WBC 06/01/22 04:43 PT 13.8 secs (9.9-12.6) H 05/30/22 04:50 INR 1.3 (0.8-1.2) H 05/30/22 04:50 Sodium 132 mmol/L (135-145) L 06/07/22 05:01 Potassium 3.8 mmol/L (3.5-5.0) 06/07/22 05:01 Chloride 96 mmol/L (101-111) L 06/07/22 05:01 Carbon Dioxide 28 mmol/L (21-32) 06/07/22 05:01 Anion Gap 8.0 (6-13) 06/07/22 05:01 BUN 13 mg/dL (6-20) 06/07/22 05:01 Creatinine 0.6 mg/dL (0.6-1.2) 06/07/22 05:01 Estimated GFR (MDRD) 129 (>89) 06/07/22 05:01 Glucose 125 mg/dL (70-100) H 06/07/22 05:01 Calcium 7.9 mg/dL (8.5-10.3) L 06/07/22 05:01 Phosphorus 1.1 mg/dL (2.5-4.6) L 05/30/22 04:50 Magnesium 2.1 mg/dL (1.7-2.8) 06/07/22 05:01 Total Bilirubin 0.8 mg/dL (0.2-1.0) 05/29/22 06:20 AST 20 IU/L (10-42) 05/29/22 06:20 ALT 17 IU/L (10-60) 05/29/22 06:20 Alkaline Phosphatase 58 IU/L (42-121) 05/29/22 06:20 Total Creatine Kinase 87 IU/L (22-269) 05/28/22 11:50 Total Protein 6.4 g/dL (6.7-8.2) L 05/29/22 06:20 Albumin 2.5 g/dL (3.2-5.5) L 05/29/22 06:20 Globulin 3.9 g/dL (2.1-4.2) 05/29/22 06:20 Albumin/Globulin Ratio 0.6 (1.0-2.2) L 05/29/22 06:20 Lipase 35 U/L (22-51) 05/29/22 06:20 TSH 2.68 uIU/mL (0.34-5.60) 05/30/22 04:50 Urine Color DARK YELLOW 05/28/22 12:07 Urine Clarity CLEAR (CLEAR) 05/28/22 12:07 Urine pH 6.0 PH (5.0-7.5) 05/28/22 12:07 Ur Specific [place] 1.025 (1.002-1.030) 05/28/22 12:07 Urine Protein 30 mg/dL (NEGATIVE) H 05/28/22 12:07 Urine Glucose (UA) NEGATIVE mg/dL (NEGATIVE) 05/28/22 12:07 Urine Ketones 15 mg/dL (NEGATIVE) H 05/28/22 12:07 Urine Occult Blood LARGE (NEGATIVE) H 05/28/22 12:07 Urine Nitrite NEGATIVE (NEGATIVE) 05/28/22 12:07 Urine Bilirubin NEGATIVE (NEGATIVE) 05/28/22 12:07 Urine Urobilinogen 1 (NORMAL) E.U./dL (NORMAL) 05/28/22 12:07 Ur Leukocyte Esterase NEGATIVE (NEGATIVE) 05/28/22 12:07 Urine RBC TNTC /HPF (0-5) H 05/28/22 12:07 Urine WBC 6-10 /HPF (0-3) H 05/28/22 12:07 Ur Epithelial Cells MOD Transitional /HPF (<= Few) H 05/28/22 12:07 Ur Squamous Epith Cells FEW Squamous (<= Few) 05/28/22 12:07 Urine Bacteria Few /HPF (None Seen) 05/28/22 12:07 Urine Casts 6-10 Hyaline Casts /LPF 05/28/22 12:07 Ur Microscopic Review INDICATED 05/28/22 12:07 Urine Culture Comments NOT INDICATED 05/28/22 12:07 Coronavirus (PCR) NEGATIVE 05/29/22 14:20 - Procedures Procedures: Procedures ENDO RECTUM POLYPECTOMY (04/27/15) ENDOSC POLYPECTOMY OF LG INTEST (04/27/15) EXCISION OF ASCENDING COLON, ENDO, DIAGN (05/02/17) EXCISION OF DESCENDING COLON, ENDO, DIAGN (05/02/17) EXCISION OF LEFT LOWER LEG SKIN, EXTERNAL APPROACH, DIAGN (11/16/20) EXCISION OF TRANSVERSE COLON, ENDO, DIAGN (05/02/17)
[2022-06-09] MEDS: MORPHINE SOL 10 MG/0.5 ML ORAL SYRINGE PO SCH ×4 (04:42→18:00)
[2022-06-09] MEDS: SODIUM CHLORIDE FLUSH 0.9% 10 ML SYRINGE IVP SCH ×3 (06:53→17:08)
[2022-06-09] MEDS: polyethylene glycoL 3350 17 GM PACKET PO SCH (09:11)
[2022-06-09] MEDS: ENOXAPARIN 40 MG/0.4 ML SYRINGE SUBQ SCH (09:11)
[2022-06-09] MEDS: MULTIVITAMIN W/MINERALS TABLET PO SCH (09:11)
[2022-06-09] MEDS: SACCHAROMYCES BOULARDII 250 MG CAPSULE PO SCH ×2 (09:11→17:08)
--- NOTE | 2022-06-09 13:41 | PROVIDER PROGRESS NOTE ---
Assessment/Plan - Problem List (1) Metastatic lung cancer (metastasis from lung to other site) Qualifiers: Qualified Code(s): C34.90 - Malignant neoplasm of unspecified part of unspecified bronchus or lung Assessment/Plan: He has a right lower lobe lung neoplasm eroding through the right chest wall. This has resulted in chest wall pain, a profound decrease in functional status with cachexia, and immobility. He was too weak to even eat sometimes. He is lost 100 pounds. He has severe pain from the tumor eroding into his chest wall. We changed Roxanol drops to scheduled 5mg q6h and continue 10mg q2h prn. He has been more comfortable. (2) Cognitive impairment He had a [facility] cognitive eval done 05/29/22 and scored 8/30. Because he cannot make decisions on his own, social work has been trying to contact family members. On 06/07 social work learned that he still has a who is alive but has paranoid schizophrenia and also has a "stepson", Yasmany, who lives in [place], and is planning on visiting. I told the patient this today and qasked if Yasmany was officially adopted and the patient cannot remember. The patient thinks he last saw Yasmany when Yasmany was a teenager. Plan is eventual discharge to a facility for long-term care or to home with caregivers or under hospice care, once we can establish power of securities attorney or a guardian who can legally makes decisions for him. (3) Severe protein calorie malnutrition He has had failure to thrive, lost 100 pounds. We stopped his IV fluids June 02. We also removed his Marie and he needed a straight cath, but not needing the Marie put back yet. Since he is gaining some strength and able to improve his truncal stability. Physical therapy and Occupational Therapy are working with him and recommended a SNF, but now he has plateaued, no longer needs rehab at SNF, but needs jail placement. He is essentially ready for discharge to the next site of care. Today is another avoidable day. (4) Weakness He has been seen daily by PT and OT. Both PT and OT feel that he has plateaued and therefore he does not need a SNF for further rehab. (5) CKD Labs were done this morning since they had not been done for nearly a week and these do show continued but stable CKD. No new orders needed. (6) Pneumonia Resolved. Therapy has been completed with 3 days of azithromycin and 5 days of Rocephin. (7) Hypokalemia Resolved with treatment (8) Hyponatremia Resolved with treatment. No further iv fluids planned. No further labs, if possible. - Current Meds Current Meds: Current Medications Generic Name Dose Route Start Last Admin Trade Name Freq PRN Reason Stop Dose Admin Acetaminophen 650 mg 05/29/22 14:15 06/02/22 17:16 Acetaminophen 325 Mg Tablet PO 650 mg Q4HR PRN Administration Pain 1 to 4, or Fever Enoxaparin Sodium 40 mg 05/30/22 09:00 06/09/22 09:11 Enoxaparin 40 Mg/0.4 Ml Syringe SUBQ 40 mg DAILY MICHAELA Administration Morphine Sulfate 10 mg 06/02/22 18:42 06/07/22 17:07 Morphine Neema 10 Mg/0.5 Ml Oral Syringe PO 10 mg Q2HR PRN Administration PAIN Morphine Sulfate 5 mg 06/03/22 12:00 06/09/22 12:14 Morphine Neema 10 Mg/0.5 Ml Oral Syringe PO 5 mg Q6HR MICHAELA Administration Multi-Ingredient Ointment 1 applic 05/30/22 22:39 06/04/22 06:29 Zinc Oxide 20% Oint 30 Gm Tube TOP 1 applic PRN PRN Administration Skin Care Multivitamins/Minerals 1 tab 05/30/22 11:00 06/09/22 09:11 Multivitamin W/Minerals Tablet PO 1 tab DAILYWM MICHAELA Administration Polyethylene Glycol 17 gm 05/30/22 09:00 06/09/22 09:11 Polyethylene Glycol 3350 17 Gm Packet PO Not Given DAILY MICHAELA Saccharomyces Boulardii 250 mg 05/29/22 17:00 06/09/22 09:11 Saccharomyces Boulardii 250 Mg Capsule PO 250 mg BIDWM MICHAELA Administration Sodium Chloride 10 ml 05/29/22 17:00 06/09/22 09:11 Sodium Chloride Flush 0.9% 10 Ml Syringe IVP 10 ml 0100,0900,1700 MICHAELA Administration - Lab Result Fish Bone Diagrams: 06/01/22 04:43 06/07/22 05:01 Subjective - Subjective Patient Reports: Resting Comfortably, No Complaints Objective Vital Signs: Vital Signs - 24 hr 06/08/22 06/09/22 16:00 07:47 Temperature 37.4 C 36.6 C Heart Rate [ 70 62 Brachial] Respiratory 24 22 Rate Blood Pressure 105/55 L [Left Brachial artery] Blood Pressure 118/53 L [Right Brachial artery] O2 Saturation 94 93 Oxygen O2 Source Room air I&O (Last 24 Hrs): Intake and Output Totals x24h 06/07/22 06/08/22 06/09/22 23:59 23:59 23:59 Intake Total 1387 1477 880 Output Total 1325 575 Balance 1387 152 305 General: Alert, Oriented x3 HEENT: Mucous membr. moist/pink, Other (Poor dentition) Neck: Supple Neuro: Alert, Non Focal Cardiovascular: Regular rate Respiratory: No respiratory distress Abdomen: Soft Extremities: No edema - Results Results: Laboratory Results WBC 5.9 x10^3/uL (4.8-10.8) 06/01/22 04:43 RBC 4.13 10^6/uL (4.70-6.10) L 06/01/22 04:43 Hgb 10.6 g/dL (14.0-18.0) L 06/01/22 04:43 Hct 35.0 % (42.0-52.0) L 06/01/22 04:43 MCV 84.7 fL (80.0-94.0) 06/01/22 04:43 MCH 25.7 pg (27.0-31.0) L 06/01/22 04:43 MCHC 30.3 g/dL (32.0-36.0) L 06/01/22 04:43 RDW 16.5 % (12.0-15.0) H 06/01/22 04:43 Plt Count 200 10^3/uL (130-450) 06/01/22 04:43 MPV 9.0 fL (7.4-11.4) 06/01/22 04:43 Neut # (Auto) 4.6 10^3/uL (1.5-6.6) 06/01/22 04:43 Lymph # (Auto) 0.8 10^3/uL (1.5-3.5) L 06/01/22 04:43 Todd # (Auto) 0.4 10^3/uL (0.0-1.0) 06/01/22 04:43 Eos # (Auto) 0.1 10^3/uL (0.0-0.7) 06/01/22 04:43 Baso # (Auto) 0.0 10^3/uL (0.0-0.1) 06/01/22 04:43 Absolute Nucleated RBC 0.00 x10^3/uL 06/01/22 04:43 Nucleated RBC % 0.0 /100WBC 06/01/22 04:43 PT 13.8 secs (9.9-12.6) H 05/30/22 04:50 INR 1.3 (0.8-1.2) H 05/30/22 04:50 Sodium 132 mmol/L (135-145) L 06/07/22 05:01 Potassium 3.8 mmol/L (3.5-5.0) 06/07/22 05:01 Chloride 96 mmol/L (101-111) L 06/07/22 05:01 Carbon Dioxide 28 mmol/L (21-32) 06/07/22 05:01 Anion Gap 8.0 (6-13) 06/07/22 05:01 BUN 13 mg/dL (6-20) 06/07/22 05:01 Creatinine 0.6 mg/dL (0.6-1.2) 06/07/22 05:01 Estimated GFR (MDRD) 129 (>89) 06/07/22 05:01 Glucose 125 mg/dL (70-100) H 06/07/22 05:01 Calcium 7.9 mg/dL (8.5-10.3) L 06/07/22 05:01 Phosphorus 1.1 mg/dL (2.5-4.6) L 05/30/22 04:50 Magnesium 2.1 mg/dL (1.7-2.8) 06/07/22 05:01 Total Bilirubin 0.8 mg/dL (0.2-1.0) 05/29/22 06:20 AST 20 IU/L (10-42) 05/29/22 06:20 ALT 17 IU/L (10-60) 05/29/22 06:20 Alkaline Phosphatase 58 IU/L (42-121) 05/29/22 06:20 Total Creatine Kinase 87 IU/L (22-269) 05/28/22 11:50 Total Protein 6.4 g/dL (6.7-8.2) L 05/29/22 06:20 Albumin 2.5 g/dL (3.2-5.5) L 05/29/22 06:20 Globulin 3.9 g/dL (2.1-4.2) 05/29/22 06:20 Albumin/Globulin Ratio 0.6 (1.0-2.2) L 05/29/22 06:20 Lipase 35 U/L (22-51) 05/29/22 06:20 TSH 2.68 uIU/mL (0.34-5.60) 05/30/22 04:50 Urine Color DARK YELLOW 05/28/22 12:07 Urine Clarity CLEAR (CLEAR) 05/28/22 12:07 Urine pH 6.0 PH (5.0-7.5) 05/28/22 12:07 Ur Specific [place] 1.025 (1.002-1.030) 05/28/22 12:07 Urine Protein 30 mg/dL (NEGATIVE) H 05/28/22 12:07 Urine Glucose (UA) NEGATIVE mg/dL (NEGATIVE) 05/28/22 12:07 Urine Ketones 15 mg/dL (NEGATIVE) H 05/28/22 12:07 Urine Occult Blood LARGE (NEGATIVE) H 05/28/22 12:07 Urine Nitrite NEGATIVE (NEGATIVE) 05/28/22 12:07 Urine Bilirubin NEGATIVE (NEGATIVE) 05/28/22 12:07 Urine Urobilinogen 1 (NORMAL) E.U./dL (NORMAL) 05/28/22 12:07 Ur Leukocyte Esterase NEGATIVE (NEGATIVE) 05/28/22 12:07 Urine RBC TNTC /HPF (0-5) H 05/28/22 12:07 Urine WBC 6-10 /HPF (0-3) H 05/28/22 12:07 Ur Epithelial Cells MOD Transitional /HPF (<= Few) H 05/28/22 12:07 Ur Squamous Epith Cells FEW Squamous (<= Few) 05/28/22 12:07 Urine Bacteria Few /HPF (None Seen) 05/28/22 12:07 Urine Casts 6-10 Hyaline Casts /LPF 05/28/22 12:07 Ur Microscopic Review INDICATED 05/28/22 12:07 Urine Culture Comments NOT INDICATED 05/28/22 12:07 Coronavirus (PCR) NEGATIVE 05/29/22 14:20 - Procedures Procedures: Procedures ENDO RECTUM POLYPECTOMY (04/27/15) ENDOSC POLYPECTOMY OF LG INTEST (04/27/15) EXCISION OF ASCENDING COLON, ENDO, DIAGN (05/02/17) EXCISION OF DESCENDING COLON, ENDO, DIAGN (05/02/17) EXCISION OF LEFT LOWER LEG SKIN, EXTERNAL APPROACH, DIAGN (11/16/20) EXCISION OF TRANSVERSE COLON, ENDO, DIAGN (05/02/17)
[2022-06-10] MEDS: SODIUM CHLORIDE FLUSH 0.9% 10 ML SYRINGE IVP SCH ×3 (00:36→17:02)
[2022-06-10] MEDS: MORPHINE SOL 10 MG/0.5 ML ORAL SYRINGE PO SCH ×4 (00:36→18:18)
[2022-06-10] MEDS: ENOXAPARIN 40 MG/0.4 ML SYRINGE SUBQ SCH (07:34)
[2022-06-10] MEDS: polyethylene glycoL 3350 17 GM PACKET PO SCH (07:35)
[2022-06-10] MEDS: MULTIVITAMIN W/MINERALS TABLET PO SCH (07:35)
[2022-06-10] MEDS: SACCHAROMYCES BOULARDII 250 MG CAPSULE PO SCH (07:35)
[2022-06-11] MEDS: ZINC OXIDE 20% OINT 30 GM TUBE TOP PRN ×2 (00:28→06:25)
[2022-06-11] MEDS: MORPHINE SOL 10 MG/0.5 ML ORAL SYRINGE PO SCH ×5 (00:33→23:41)
[2022-06-11] MEDS: SODIUM CHLORIDE FLUSH 0.9% 10 ML SYRINGE IVP SCH ×4 (06:19→23:34)
[2022-06-11] MEDS: polyethylene glycoL 3350 17 GM PACKET PO SCH (07:50)
[2022-06-11] MEDS: ENOXAPARIN 40 MG/0.4 ML SYRINGE SUBQ SCH (07:50)
[2022-06-11] MEDS: MULTIVITAMIN W/MINERALS TABLET PO SCH (07:50)
--- NOTE | 2022-06-11 14:47 | PROVIDER PROGRESS NOTE ---
Subjective - Prog Note Date Prog Note Date: 06/11/22 Prog Note Time: 14:45 - Subjective Subjective: He does not have any new complaints. Tells me that his pain, for the most part, is controlled from the tumor invasion into his chest wall. He says that he has brief, fleeting moments of agonizing pain but they are like a brief flash almost like a splatter of hot grease from the stove he tells me. It is gone by the time he has a chance to react. He is occasionally incontinent of urine. Has generalized weakness, is hard of hearing, but still able to get up out of the bed at times. His last bowel movement was June 10. Blood pressure systolic is 90, 104. He is eating 25 to 50% of his food. Current Medications - Current Medications Current Medications: Active Medications Acetaminophen (Acetaminophen 325 Mg Tablet) 650 mg PO Q4HR PRN PRN Reason: Pain 1 to 4, or Fever Last Admin: 06/02/22 17:16 Dose: 650 mg Enoxaparin Sodium (Enoxaparin 40 Mg/0.4 Ml Syringe) 40 mg SUBQ DAILY [facility] Last Admin: 06/11/22 07:50 Dose: 40 mg Morphine Sulfate (Morphine Neema 10 Mg/0.5 Ml Oral Syringe) 10 mg PO Q2HR PRN PRN Reason: PAIN Last Admin: 06/07/22 17:07 Dose: 10 mg Morphine Sulfate (Morphine Neema 10 Mg/0.5 Ml Oral Syringe) 5 mg PO Q6HR [facility] Last Admin: 06/11/22 11:30 Dose: 5 mg Multi-Ingredient Ointment (Zinc Oxide 20% Oint 30 Gm Tube) 1 applic TOP PRN PRN PRN Reason: Skin Care Last Admin: 06/11/22 06:25 Dose: 1 applic Multivitamins/Minerals (Multivitamin W/Minerals Tablet) 1 tab PO DAILYWM [facility] Last Admin: 06/11/22 07:50 Dose: 1 tab Ondansetron HCl (Ondansetron Odt 4 Mg Tablet) 4 mg TL Q6HR PRN PRN Reason: Nausea / Vomiting Polyethylene Glycol (Polyethylene Glycol 3350 17 Gm Packet) 17 gm PO DAILY [facility] Last Admin: 06/11/22 07:50 Dose: 17 gm Sodium Chloride (Sodium Chloride Flush 0.9% 10 Ml Syringe) 10 ml IVP PRN PRN PRN Reason: NEEDED PER PROVIDER ORDERS Sodium Chloride (Sodium Chloride Flush 0.9% 10 Ml Syringe) 10 ml IVP 0100,0900,1700 MICHAELA Last Admin: 06/11/22 07:50 Dose: Not Given No Known Home Medications 05/30/22 Objective - Vital Signs/Intake & Output Reviewed Vital Signs: Yes Vital Signs: Vital Signs x48h Temp Pulse Resp BP O2 Flow Rate 06/11/22 07:51 36.3 C L 59 L 16 90/33 L 93 Intake & Output: Intake & Output 06/08/22 06/09/22 06/10/22 06/11/22 23:59 23:59 23:59 23:59 Intake Total 1477 1170 1614 1184 Output Total 7858 456 7701 550 Balance 152 345 414 634 - Objective General Appearance: positive: No acute distress, Alert, Other (Very thin, cachectic elderly gentleman who is moderately deaf, but cooperative, forgetful. Tells me that he is comfortable right now) Eyes Bilateral: positive: PERRL, EOMI ENT: positive: No signs of dehydration Neck: positive: No JVD. negative: Stiff neck Respiratory: positive: No respiratory distress. negative: Wheezes, Rales, Rhonchi Cardiovascular: positive: Regular rate & rhythm Abdomen: positive: Non-tender, Nml bowel sounds, No distention Skin: positive: Warm, Dry Extremities: positive: No pedal edema Neurologic/Psychiatric: positive: CN's nml (2-12), Motor nml, Disoriented to place (At times. 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 This has resulted in chest wall pain, a profound decrease in functional status with cachexia, and immobility. He was too weak to even eat sometimes. He is lost 100 pounds. He has severe pain from the tumor eroding into his chest wall. We changed Roxanol drops to scheduled 5mg q6h and continue 10mg q2h prn. He has been more comfortable. (2) Cognitive impairment He had a [facility] cognitive eval done 05/29/22 and scored 8/30. Because he cannot make decisions on his own, social work has been trying to contact family members. On 06/07 social work learned that he still has a who is alive but has paranoid schizophrenia and also has a "stepson", Yasmany, who lives in [place], and is planning on visiting. Hospitalist on that day discussed this with patient and asked if Yasmany was officially adopted and the patient cannot remember. The patient thinks he last saw Yasmany when Yasmany was a teenager. Social work is still working out the legal relationships for them Plan is eventual discharge to a facility for long-term care or to home with caregivers or under hospice care, once we can establish power of surveillance systems analyst or a guardian who can legally makes decisions for him. (3) Severe protein calorie malnutrition He has had failure to thrive, lost 100 pounds. We stopped his IV fluids June 02. We also removed his Marie and he needed a straight cath, but not needing the Marie put back yet. Since admit, he is gaining some strength and able to improve his truncal stability. Physical therapy and Occupational Therapy are working with him and recommended a SNF, but now he has plateaued, no longer needs rehab at SNF, but needs correction placement. He is essentially ready for discharge to the next site of care. Today is a nother avoidable day. (4) Weakness He has been seen daily by PT and OT. Both PT and OT feel that he has plateaued and therefore he does not need a SNF for further rehab. (5) CKD Labs were done this morning since they had not been done for nearly a week and these do show continued but stable CKD. No new orders needed. (6) Pneumonia Resolved. Therapy has been completed with 3 days of azithromycin and 5 days of Rocephin. (7) Hypokalemia Resolved with treatment (8) Hyponatremia Resolved with treatment. No further iv fluids planned. No further labs, if possible.
[2022-06-12] MEDS: ZINC OXIDE 20% OINT 30 GM TUBE TOP PRN (00:10)
[2022-06-12] MEDS: MORPHINE SOL 10 MG/0.5 ML ORAL SYRINGE PO SCH ×4 (06:22→23:47)
[2022-06-12] MEDS: SODIUM CHLORIDE FLUSH 0.9% 10 ML SYRINGE IVP SCH ×2 (08:01→16:39)
[2022-06-12] MEDS: ENOXAPARIN 40 MG/0.4 ML SYRINGE SUBQ SCH (08:01)
[2022-06-12] MEDS: polyethylene glycoL 3350 17 GM PACKET PO SCH (08:01)
[2022-06-12] MEDS: MULTIVITAMIN W/MINERALS TABLET PO SCH (08:01)
[2022-06-12 11:13] LABS: BASOPHILS % (AUTO) 0.4 %; EOSINOPHILS # (AUTO) 0.1 10^3/uL (0.0-0.7); EOSINOPHILS % (AUTO) 1.1 %; HCT - HEMATOCRIT 25.6 % (42.0-52.0); HGB - HEMOGLOBIN 7.9 g/dL (14.0-18.0); LYMPHOCYTES # (AUTO) 0.8 10^3/uL (1.5-3.5); LYMPHOCYTES % (AUTO) 14.7 %; MEAN CORPUSCULAR HGB CONC 30.9 g/dL (32.0-36.0); MEAN CORPUSCULAR VOLUME 84.2 fL (80.0-94.0); MEAN PLATELET VOLUME 8.6 fL (7.4-11.4); MONOCYTES # (AUTO) 0.6 10^3/uL (0.0-1.0); MONOCYTES % (AUTO) 10.9 %; NEUTROPHILS # (AUTO) 3.9 10^3/uL (1.5-6.6); NEUTROPHILS % (AUTO) 72.2 %; PLT - PLATELET COUNT 368 10^3/uL (130-450); RED BLOOD COUNT 3.04 10^6/uL (4.70-6.10); RED CELL DISTRIBUTION WIDTH 17.2 % (12.0-15.0); WHITE BLOOD COUNT 5.4 x10^3/uL (4.8-10.8)
[2022-06-12 11:22] LABS: CALCIUM 8.3 mg/dL (8.5-10.3); CREATININE 0.6 mg/dL (0.6-1.2); POTASSIUM 4.3 mmol/L (3.5-5.0)
--- NOTE | 2022-06-12 18:56 | PROVIDER PROGRESS NOTE ---
Progress Note June 12 6:48 PM No new events. Pain is controlled. Unfortunately still does not have a power of dry roaster. As such we cannot move forward for making plans for this antony but forgetful gentleman. Medications unchanged from yesterday Temperature is 37. Heart rate 69. Blood pressure 97/46. He started dropping his pressures around May 30. He is 5 feet 6 inches tall and is 47 kg. He is an alert, exceedingly forgetful, moderately deaf elderly gentleman. So far comfortable in spite of the eroding tumor into his rib cage. Lungs are clear no respiratory distress Regular rate and rhythm The abdomen is nontender with a bowel movement today Cachectic extremities Lab work shows hemoglobin of 7.9. He started his stay with us at 12.7 on May 28. 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 This tumor is eroding into his rib cage and you can actually put your finger on the outside of his chest wall to feel it. He has had a profound decrease in functional status, cachexia, and near immobility when he came into the hospital. He has improved and that he is eating, and is able to get up and move around the room a bit, but he has cognitive impairment that renders him unable to make his own decisions. He is severe protein calorie malnutrition is slowly improving. But overall I think he will succumb to his neoplasm. We are awaiting AN emergency guardianship to make plans for this gentleman. He would like to be in hospice.
[2022-06-13] MEDS: SODIUM CHLORIDE FLUSH 0.9% 10 ML SYRINGE IVP SCH ×2 (00:53→08:10)
[2022-06-13] MEDS: MORPHINE SOL 10 MG/0.5 ML ORAL SYRINGE PO SCH ×4 (06:22→23:11)
[2022-06-13] MEDS: polyethylene glycoL 3350 17 GM PACKET PO SCH (08:10)
[2022-06-13] MEDS: ENOXAPARIN 40 MG/0.4 ML SYRINGE SUBQ SCH (08:10)
[2022-06-13] MEDS: MULTIVITAMIN W/MINERALS TABLET PO SCH (08:10)
--- NOTE | 2022-06-13 17:10 | PROVIDER PROGRESS NOTE ---
Progress Note June 13, 2022 5:08 PM No new events for this gentleman. His vital signs have stayed stable. He has not had any fever spike. We have noticed a gradual decrease in his blood pressure over time and he has been in the 90s systolic starting June 08. He drinks over a liter a day but not much more than that. His fluid balance is not significantly positive. The most has been is 930 cc on June 11. The rest the time his fluid balance is under 500 cc positive. He is eating bites of his food, and rarely up to 80%. Pain is controlled. Temperature is 36.3. Heart rate 59. Blood pressure 90/33. Respirations 16. 93% on room air. Alert, forgetful, moderately deaf elderly gentleman. Neck is supple Lungs are clear. I hear tubular breath sounds in the right mid lung and diminished breath sounds on the right base. He has a softening of his rib cage where if I am understand the CAT scan correctly I can feel tumor coming through. Abdomen is soft, nontender. Extremities are warm without edema. I did not do labs today. 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 This tumor is eroding into his rib cage and you can actually put your finger on the outside of his chest wall to feel it. He has had a profound decrease in functional status, cachexia, and near immobility when he came into the hospital. He has improved and that he is eating, and is able to get up and move around the room a bit, but he has cognitive impairment that renders him unable to make his own decisions. He is severe protein calorie malnutrition is slowly improving. But overall I think he will succumb to his neoplasm. We are awaiting AN emergency guardianship to make plans for this gentleman. He would like to be in hospice.I did speak to an activity aid today who is pursuing this process with the hospital.
[2022-06-14] MEDS: MORPHINE SOL 10 MG/0.5 ML ORAL SYRINGE PO SCH ×2 (06:32→11:51)
[2022-06-14] MEDS: polyethylene glycoL 3350 17 GM PACKET PO SCH (08:23)
[2022-06-14] MEDS: ENOXAPARIN 40 MG/0.4 ML SYRINGE SUBQ SCH (08:28)
[2022-06-14] MEDS: MULTIVITAMIN W/MINERALS TABLET PO SCH (08:28)
[2022-06-14] MEDS ORDERED: oxyCODONE 10 MG/0.5 ML SYRINGE PO PRN (16:59)
--- NOTE | 2022-06-14 17:02 | PROVIDER PROGRESS NOTE ---
Progress Note June 14, 2022 5 PM I was able to speak to an state attorney yesterday at the request of social work regarding emergency guardianship. That process is ongoing. The patient has had no events between yesterday and today. Pharmacy has explained to me that there is a lack of product availability for Roxanol. The patient is currently taking 5 mg p.o. every 6 hours that is scheduled. And then he gets 10 mg every 2 hours as needed. Pharmacy is recommending morphine immediate release tab 15 mg, 1/2 tablet 3 times a day as well as oxycodone liquid as needed. Temperature is 36.8. Heart rate is 63. Blood pressure 111/44. Respirations are 22. 96% on room air. He is a frail elderly gentleman. No acute distress. Forgetful, but pleasant and cooperative. Willing to sit down and have a conversation because he is lonely. Neck is supple Lungs have diminished breath sounds bases in the right lung base has some egophony and tubular breath sounds in the right lower lobe and right middle lobe. No increased work of breathing. But he does have an occasional cough that is nonproductive Regular rate and rhythm Abdomen soft, hypoactive bowel sounds. He ate 10% of breakfast. No lunch. Cachectic extremities. Moderately weak, is so weak that sometimes she just does not have the energy to feed himself anymore. But he is able to dangle his feet at the side of the bed when he sits. Stand to walk a couple of feet to a chair. And then came back in bed. He is short with his attention span. 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 This tumor is eroding into his rib cage and you can actually put your finger on the outside of his chest wall to feel it. He has had a profound decrease in functional status, cachexia, and near immobility when he came into the hospital. He has improved and that he is eating, and is able to get up and move around the room a bit, but he has cognitive impairment that renders him unable to make his own decisions. He is severe protein calorie malnutrition is slowly improving. But overall I think he will succumb to his neoplasm. We are awaiting AN emergency guardianship to make plans for this gentleman. He would like to be in hospice.I did speak to an state attorney 06/13 who is pursuing this process with the hospital.
[2022-06-14] MEDS: MORPHINE IR 15 MG TABLET PO SCH (21:59)
[2022-06-15] MEDS: MORPHINE IR 15 MG TABLET PO SCH ×3 (05:52→21:18)
[2022-06-15] MEDS: ZINC OXIDE 20% OINT 30 GM TUBE TOP PRN (05:58)
[2022-06-15] MEDS: MULTIVITAMIN W/MINERALS TABLET PO SCH (08:29)
[2022-06-15] MEDS: polyethylene glycoL 3350 17 GM PACKET PO SCH (08:29)
[2022-06-15] MEDS: ENOXAPARIN 40 MG/0.4 ML SYRINGE SUBQ SCH (08:30)
--- NOTE | 2022-06-15 16:10 | PROVIDER PROGRESS NOTE ---
Progress Note June 15, 2022 4 PM Mr. Tapia says that the change in pain medicine made yesterday he is doing okay. We are running short on Roxanol and he was using it quite a bit. We have changed him to morphine sulfate immediate release 7.5 mg 3 times daily and Roxicodone oral solution. The Roxicodone is as needed. His last use was 5:00 yesterday evening. Eating 50 to 100% of his food. Last bowel movement was today. Temperature is 37.2. Heart rate 65. Blood pressure 110/48. Respirations 24. 94% on room air. Mariely, alert, cooperative elderly gentleman sitting up in bed. Mildly deaf. Comfortable. Tells me that the main pain he has they can be quite intense is in his right axilla. But the tumor area and feeling is below that. 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 This tumor is eroding into his rib cage and you can actually put your finger on the outside of his chest wall to feel it. He has had a profound decrease in functional status, cachexia, and near immobility when he came into the hospital. He has improved and that he is eating, and is able to get up and move around the room a bit, but he has cognitive impairment that renders him unable to make his own decisions. He is severe protein calorie malnutrition is slowly improving. But overall I think he will succumb to his neoplasm. We are awaiting an emergency guardianship to make plans for this gentleman. He would like to be in hospice.I did speak to an briquetter operator 06/13 who is pursuing this process with the hospital.
[2022-06-16] MEDS: MORPHINE IR 15 MG TABLET PO SCH ×3 (05:31→21:55)
[2022-06-16] MEDS: MULTIVITAMIN W/MINERALS TABLET PO SCH (08:04)
[2022-06-16] MEDS: polyethylene glycoL 3350 17 GM PACKET PO SCH (08:04)
[2022-06-16] MEDS: ENOXAPARIN 40 MG/0.4 ML SYRINGE SUBQ SCH (08:05)
--- NOTE | 2022-06-16 16:37 | PROVIDER PROGRESS NOTE ---
Progress Note June 16, 2022 4:30 PM Comfortable in bed. Eating his breakfast. Continues to tell us that the change to the immediate release morphine with as needed immediate release oxycodone has helped his pain and it stable. Temperature is 37. Heart rate 64. Blood pressure 116/50. Respirations 14. 96% on room air. Pleasant, confused elderly gentleman who is alert, awake, lucid conversationalist but really does not know what date is, and does know was the hospital but not which 1. He states that he is happy to be here. Neck is supple Lungs are clear with diminished sounds in the mid lung. 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 This tumor is eroding into his rib cage and you can actually put your finger on the outside of his chest wall to feel it. He has had a profound decrease in functional status, cachexia, and near immobility when he came into the hospital. He has improved and that he is eating, and is able to get up and move around the room a bit, but he has cognitive impairment that renders him unable to make his own decisions. He is severe protein calorie malnutrition is slowly improving. But overall I think he will succumb to his neoplasm. We are awaiting an emergency guardianship to make plans for this gentleman. He would like to be in hospice.I did speak to an criminal defense attorney 06/13 who is pursuing this process with the hospital.
[2022-06-17] MEDS: MORPHINE IR 15 MG TABLET PO SCH ×3 (05:55→21:40)
[2022-06-17] MEDS: ZINC OXIDE 20% OINT 30 GM TUBE TOP PRN (05:56)
[2022-06-17] MEDS: MULTIVITAMIN W/MINERALS TABLET PO SCH (08:49)
[2022-06-17] MEDS: polyethylene glycoL 3350 17 GM PACKET PO SCH (08:49)
[2022-06-17] MEDS: ENOXAPARIN 40 MG/0.4 ML SYRINGE SUBQ SCH (08:49)
--- NOTE | 2022-06-17 14:46 | PROVIDER PROGRESS NOTE ---
Progress Note June 17, 2022 2:45 PM Patient seen this morning. Asleep. But woke easily to my voice. Pleasant gentleman. Cooperative. No distress. Continues to state that his pain is controlled. He can sleep at night. It hurts a lot when he tries to move or suddenly coughs. Pain is in the right axilla and right mid axillary line in the chest. Temperature is 36.6. Heart rate 58. Blood pressure 103/48. Respirations 15. 93% on room air. He is a pleasant, alert, but forgetful elderly gentleman. Poor dentition Neck supple Lungs clear except in the right lower lobe where they are very diminished. Starting to develop sounds of egophony. But no respiratory distress. Regular rate and rhythm Abdomen soft with hypoactive bowel sounds with a bowel movement yesterday. He eats erratically. Some days he is only a few bites of his meal, then will go on to eat 100% of his meal. Today he has eaten 60% of breakfast, 70% of lunch. Neurologically he is alert, knows who he is, where he is in that it is a hospital but he does not know what hospital, or what town. He is aware that he has a cancer. We discussed this at the beginning of his admission and infrequently since his admission. I do not bring it up as a topic. Today I do bring it up and he states that he knows that he is got little time left. And I ask him (telling him that I just want to make sure) if he wants any treatment like chemo or surgery or radiation and he says no. "It is my time". 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 This tumor is eroding into his rib cage and you can actually put your finger on the outside of his chest wall to feel it. He has had a profound decrease in functional status, cachexia, and near immobility when he came into the hospital. He has improved and that he is eating, and is able to get up and move around the room a bit, but he has cognitive impairment that renders him unable to make his own decisions. He is severe protein calorie malnutrition is slowly improving. But overall I think he will succumb to his neoplasm. We are awaiting an emergency guardianship to make plans for this gentleman. He would like to be in hospice.I did speak to an criminal attorney 06/13 who is pursuing this process with the hospital.
[2022-06-18] MEDS: MORPHINE IR 15 MG TABLET PO SCH ×3 (05:51→21:06)
[2022-06-18] MEDS: MULTIVITAMIN W/MINERALS TABLET PO SCH (08:09)
[2022-06-18] MEDS: ENOXAPARIN 40 MG/0.4 ML SYRINGE SUBQ SCH (08:09)
[2022-06-18] MEDS: polyethylene glycoL 3350 17 GM PACKET PO SCH (08:09)
--- NOTE | 2022-06-18 10:37 | PROVIDER PROGRESS NOTE ---
Assessment/Plan - Problem List (1) Metastatic lung cancer (metastasis from lung to other site) Qualifiers: Qualified Code(s): C34.90 - Malignant neoplasm of unspecified part of unspecified bronchus or lung Assessment/Plan: He has a neoplasm of uncertain behavior in the right lower lung. This tumor is eroding into his rib cage and you can actually put your finger on the outside of his chest wall to feel it. He has had a profound decrease in functional status, has cachexia, and had near immobility when he came into the hospital. He has improved in that he is eating, and is able to get up and move around the room a bit, worked with PT and OT and met the goals, but he has cognitive impairment that renders him unable to make his own decisions. He lived alone and therefore can no longer be safely discharged to there. (2) Severe protein calorie malnutrition He has severe protein calorie malnutrition that is slowly improving, but overall we think he will succumb to his neoplasm. (3) Cognitive impairment We are awaiting an emergency guardianship to be established to make plans for this gentleman. He would like to be in Hospice. The previous Hospitalist did speak to an field spec 06/13/22 who is pursuing this whole process with the hospital. - Current Meds Current Meds: Current Medications Generic Name Dose Route Start Last Admin Trade Name Freq PRN Reason Stop Dose Admin Acetaminophen 650 mg 05/29/22 14:15 06/02/22 17:16 Acetaminophen 325 Mg Tablet PO 650 mg Q4HR PRN Administration Pain 1 to 4, or Fever Enoxaparin Sodium 40 mg 05/30/22 09:00 06/18/22 08:09 Enoxaparin 40 Mg/0.4 Ml Syringe SUBQ 40 mg DAILY MICHAELA Administration Morphine Sulfate 7.5 mg 06/14/22 22:00 06/18/22 05:51 Morphine Ir 15 Mg Tablet PO 7.5 mg TID MICHAELA Administration Multi-Ingredient Ointment 1 applic 05/30/22 22:39 06/17/22 05:56 Zinc Oxide 20% Oint 30 Gm Tube TOP 1 applic PRN PRN Administration Skin Care Multivitamins/Minerals 1 tab 05/30/22 11:00 06/18/22 08:09 Multivitamin W/Minerals Tablet PO 1 tab DAILYWM MICHAELA Administration Polyethylene Glycol 17 gm 05/30/22 09:00 06/18/22 08:09 Polyethylene Glycol 3350 17 Gm Packet PO 17 gm DAILY MICHAELA Administration - Lab Result Fish Bone Diagrams: 06/12/22 11:08 06/12/22 11:08 Subjective - Subjective Patient Reports: Resting Comfortably, No Complaints Objective Vital Signs: Vital Signs - 24 hr 06/17/22 06/18/22 15:54 08:05 Temperature 36.7 C 36.7 C Heart Rate [ 64 63 Brachial] Respiratory 16 20 Rate Blood Pressure 107/50 L [Left Brachial artery] Blood Pressure 113/51 L [Right Brachial artery] O2 Saturation 95 94 Oxygen O2 Source Room air I&O (Last 24 Hrs): Intake and Output Totals x24h 06/16/22 06/17/22 06/18/22 23:59 23:59 23:59 Intake Total 750 750 200 Output Total 1100 775 250 Balance -350 -25 -50 General: Alert HEENT: Mucous membr. moist/pink Neck: Supple Neuro: Alert, Non Focal Cardiovascular: Regular rate Respiratory: No respiratory distress Abdomen: Soft Extremities: No edema - Results Results: Laboratory Results WBC 5.4 x10^3/uL (4.8-10.8) 06/12/22 11:08 RBC 3.04 10^6/uL (4.70-6.10) L 06/12/22 11:08 Hgb 7.9 g/dL (14.0-18.0) L 06/12/22 11:08 Hct 25.6 % (42.0-52.0) L 06/12/22 11:08 MCV 84.2 fL (80.0-94.0) 06/12/22 11:08 MCH 26.0 pg (27.0-31.0) L 06/12/22 11:08 MCHC 30.9 g/dL (32.0-36.0) L 06/12/22 11:08 RDW 17.2 % (12.0-15.0) H 06/12/22 11:08 Plt Count 368 10^3/uL (130-450) 06/12/22 11:08 MPV 8.6 fL (7.4-11.4) 06/12/22 11:08 Neut # (Auto) 3.9 10^3/uL (1.5-6.6) 06/12/22 11:08 Lymph # (Auto) 0.8 10^3/uL (1.5-3.5) L 06/12/22 11:08 [place] # (Auto) 0.6 10^3/uL (0.0-1.0) 06/12/22 11:08 Eos # (Auto) 0.1 10^3/uL (0.0-0.7) 06/12/22 11:08 Baso # (Auto) 0.0 10^3/uL (0.0-0.1) 06/12/22 11:08 Absolute Nucleated RBC 0.00 x10^3/uL 06/12/22 11:08 Nucleated RBC % 0.0 /100WBC 06/12/22 11:08 PT 13.8 secs (9.9-12.6) H 05/30/22 04:50 INR 1.3 (0.8-1.2) H 05/30/22 04:50 Sodium 135 mmol/L (135-145) 06/12/22 11:08 Potassium 4.3 mmol/L (3.5-5.0) 06/12/22 11:08 Chloride 97 mmol/L (101-111) L 06/12/22 11:08 Carbon Dioxide 30 mmol/L (21-32) 06/12/22 11:08 Anion Gap 8.0 (6-13) 06/12/22 11:08 BUN 22 mg/dL (6-20) H 06/12/22 11:08 Creatinine 0.6 mg/dL (0.6-1.2) 06/12/22 11:08 Estimated GFR (MDRD) 129 (>89) 06/12/22 11:08 Glucose 125 mg/dL (70-100) H 06/12/22 11:08 Calcium 8.3 mg/dL (8.5-10.3) L 06/12/22 11:08 Phosphorus 1.1 mg/dL (2.5-4.6) L 05/30/22 04:50 Magnesium 2.1 mg/dL (1.7-2.8) 06/07/22 05:01 Total Bilirubin 0.8 mg/dL (0.2-1.0) 05/29/22 06:20 AST 20 IU/L (10-42) 05/29/22 06:20 ALT 17 IU/L (10-60) 05/29/22 06:20 Alkaline Phosphatase 58 IU/L (42-121) 05/29/22 06:20 Total Creatine Kinase 87 IU/L (22-269) 05/28/22 11:50 Total Protein 6.4 g/dL (6.7-8.2) L 05/29/22 06:20 Albumin 2.5 g/dL (3.2-5.5) L 05/29/22 06:20 Globulin 3.9 g/dL (2.1-4.2) 05/29/22 06:20 Albumin/Globulin Ratio 0.6 (1.0-2.2) L 05/29/22 06:20 Lipase 35 U/L (22-51) 05/29/22 06:20 TSH 2.68 uIU/mL (0.34-5.60) 05/30/22 04:50 Urine Color DARK YELLOW 05/28/22 12:07 Urine Clarity CLEAR (CLEAR) 05/28/22 12:07 Urine pH 6.0 PH (5.0-7.5) 05/28/22 12:07 Ur Specific [place] 1.025 (1.002-1.030) 05/28/22 12:07 Urine Protein 30 mg/dL (NEGATIVE) H 05/28/22 12:07 Urine Glucose (UA) NEGATIVE mg/dL (NEGATIVE) 05/28/22 12:07 Urine Ketones 15 mg/dL (NEGATIVE) H 05/28/22 12:07 Urine Occult Blood LARGE (NEGATIVE) H 05/28/22 12:07 Urine Nitrite NEGATIVE (NEGATIVE) 05/28/22 12:07 Urine Bilirubin NEGATIVE (NEGATIVE) 05/28/22 12:07 Urine Urobilinogen 1 (NORMAL) E.U./dL (NORMAL) 05/28/22 12:07 Ur Leukocyte Esterase NEGATIVE (NEGATIVE) 05/28/22 12:07 Urine RBC TNTC /HPF (0-5) H 05/28/22 12:07 Urine WBC 6-10 /HPF (0-3) H 05/28/22 12:07 Ur Epithelial Cells MOD Transitional /HPF (<= Few) H 05/28/22 12:07 Ur Squamous Epith Cells FEW Squamous (<= Few) 05/28/22 12:07 Urine Bacteria Few /HPF (None Seen) 05/28/22 12:07 Urine Casts 6-10 Hyaline Casts /LPF 05/28/22 12:07 Ur Microscopic Review INDICATED 05/28/22 12:07 Urine Culture Comments NOT INDICATED 05/28/22 12:07 Coronavirus (PCR) NEGATIVE 05/29/22 14:20 - Procedures Procedures: Procedures ENDO RECTUM POLYPECTOMY (04/27/15) ENDOSC POLYPECTOMY OF LG INTEST (04/27/15) EXCISION OF ASCENDING COLON, ENDO, DIAGN (05/02/17) EXCISION OF DESCENDING COLON, ENDO, DIAGN (05/02/17) EXCISION OF LEFT LOWER LEG SKIN, EXTERNAL APPROACH, DIAGN (11/16/20) EXCISION OF TRANSVERSE COLON, ENDO, DIAGN (05/02/17)
[2022-06-19] MEDS: MORPHINE IR 15 MG TABLET PO SCH ×3 (05:48→21:43)
[2022-06-19] MEDS: MULTIVITAMIN W/MINERALS TABLET PO SCH (08:48)
[2022-06-19] MEDS: polyethylene glycoL 3350 17 GM PACKET PO SCH (08:48)
[2022-06-19] MEDS: ENOXAPARIN 40 MG/0.4 ML SYRINGE SUBQ SCH (08:48)
--- NOTE | 2022-06-19 13:03 | PROVIDER PROGRESS NOTE ---
Assessment/Plan - Problem List (1) Metastatic lung cancer (metastasis from lung to other site) Qualifiers: Qualified Code(s): C34.90 - Malignant neoplasm of unspecified part of unspecified bronchus or lung Assessment/Plan: He has a neoplasm of uncertain behavior in the right lower lung. This tumor is eroding into his R rib cage and you can actually put your finger on the outside of his chest wall to feel it. He has had a profound decrease in functional status, has cachexia, and had near immobility when he came into the hospital. He has improved in that he is now eating, gained a little weight, and is able to get up and move around the room a bit, and has worked with PT and OT and met the goals. He lived alone and therefore he can no longer be safely discharged to there. (2) Severe protein calorie malnutrition He has severe protein calorie malnutrition that is slowly improving, but overall we think he will succumb to his neoplasm. (3) Cognitive impairment He has cognitive impairment that renders him unable to make his own decisions. He lived alone and therefore can no longer be safely discharged to there. We are awaiting an emergency guardianship to be established to make plans for this gentleman. He would like to be in Hospice. The previous Hospitalist did speak to an maintenance instructor 06/13/22 who is pursuing this whole process with the hospital. - Current Meds Current Meds: Current Medications Generic Name Dose Route Start Last Admin Trade Name Freq PRN Reason Stop Dose Admin Acetaminophen 650 mg 05/29/22 14:15 06/02/22 17:16 Acetaminophen 325 Mg Tablet PO 650 mg Q4HR PRN Administration Pain 1 to 4, or Fever Enoxaparin Sodium 40 mg 05/30/22 09:00 06/19/22 08:48 Enoxaparin 40 Mg/0.4 Ml Syringe SUBQ 40 mg DAILY MICHAELA Administration Morphine Sulfate 7.5 mg 06/14/22 22:00 06/19/22 05:48 Morphine Ir 15 Mg Tablet PO 7.5 mg TID MICHAELA Administration Multi-Ingredient Ointment 1 applic 05/30/22 22:39 06/17/22 05:56 Zinc Oxide 20% Oint 30 Gm Tube TOP 1 applic PRN PRN Administration Skin Care Multivitamins/Minerals 1 tab 05/30/22 11:00 06/19/22 08:48 Multivitamin W/Minerals Tablet PO 1 tab DAILYWM MICHAELA Administration Polyethylene Glycol 17 gm 05/30/22 09:00 06/19/22 08:48 Polyethylene Glycol 3350 17 Gm Packet PO 17 gm DAILY MICHAELA Administration - Lab Result Fish Bone Diagrams: 06/12/22 11:08 06/12/22 11:08 Subjective - Subjective Patient Reports: Resting Comfortably, No Complaints Objective Vital Signs: Vital Signs - 24 hr 06/18/22 06/19/22 15:40 07:56 Temperature 36.5 C 36.6 C Heart Rate [ 64 63 Brachial] Respiratory 18 18 Rate Blood Pressure 104/60 100/50 L [Right Brachial artery] O2 Saturation 95 93 Oxygen O2 Source Room air I&O (Last 24 Hrs): Intake and Output Totals x24h 06/17/22 06/18/22 06/19/22 23:59 23:59 23:59 Intake Total 750 900 480 Output Total 775 850 475 Balance -25 50 5 General: Alert, Oriented x3 HEENT: Mucous membr. moist/pink, Other ([place]) Neuro: Alert, Non Focal, Other (Poor memory and [place]) Cardiovascular: Regular rate Respiratory: No respiratory distress Abdomen: Soft Extremities: No edema - Results Results: Laboratory Results WBC 5.4 x10^3/uL (4.8-10.8) 06/12/22 11:08 RBC 3.04 10^6/uL (4.70-6.10) L 06/12/22 11:08 Hgb 7.9 g/dL (14.0-18.0) L 06/12/22 11:08 Hct 25.6 % (42.0-52.0) L 06/12/22 11:08 MCV 84.2 fL (80.0-94.0) 06/12/22 11:08 MCH 26.0 pg (27.0-31.0) L 06/12/22 11:08 MCHC 30.9 g/dL (32.0-36.0) L 06/12/22 11:08 RDW 17.2 % (12.0-15.0) H 06/12/22 11:08 Plt Count 368 10^3/uL (130-450) 06/12/22 11:08 MPV 8.6 fL (7.4-11.4) 06/12/22 11:08 Neut # (Auto) 3.9 10^3/uL (1.5-6.6) 06/12/22 11:08 Lymph # (Auto) 0.8 10^3/uL (1.5-3.5) L 06/12/22 11:08 [place] # (Auto) 0.6 10^3/uL (0.0-1.0) 06/12/22 11:08 Eos # (Auto) 0.1 10^3/uL (0.0-0.7) 06/12/22 11:08 Baso # (Auto) 0.0 10^3/uL (0.0-0.1) 06/12/22 11:08 Absolute Nucleated RBC 0.00 x10^3/uL 06/12/22 11:08 Nucleated RBC % 0.0 /100WBC 06/12/22 11:08 PT 13.8 secs (9.9-12.6) H 05/30/22 04:50 INR 1.3 (0.8-1.2) H 05/30/22 04:50 Sodium 135 mmol/L (135-145) 06/12/22 11:08 Potassium 4.3 mmol/L (3.5-5.0) 06/12/22 11:08 Chloride 97 mmol/L (101-111) L 06/12/22 11:08 Carbon Dioxide 30 mmol/L (21-32) 06/12/22 11:08 Anion Gap 8.0 (6-13) 06/12/22 11:08 BUN 22 mg/dL (6-20) H 06/12/22 11:08 Creatinine 0.6 mg/dL (0.6-1.2) 06/12/22 11:08 Estimated GFR (MDRD) 129 (>89) 06/12/22 11:08 Glucose 125 mg/dL (70-100) H 06/12/22 11:08 Calcium 8.3 mg/dL (8.5-10.3) L 06/12/22 11:08 Phosphorus 1.1 mg/dL (2.5-4.6) L 05/30/22 04:50 Magnesium 2.1 mg/dL (1.7-2.8) 06/07/22 05:01 Total Bilirubin 0.8 mg/dL (0.2-1.0) 05/29/22 06:20 AST 20 IU/L (10-42) 05/29/22 06:20 ALT 17 IU/L (10-60) 05/29/22 06:20 Alkaline Phosphatase 58 IU/L (42-121) 05/29/22 06:20 Total Creatine Kinase 87 IU/L (22-269) 05/28/22 11:50 Total Protein 6.4 g/dL (6.7-8.2) L 05/29/22 06:20 Albumin 2.5 g/dL (3.2-5.5) L 05/29/22 06:20 Globulin 3.9 g/dL (2.1-4.2) 05/29/22 06:20 Albumin/Globulin Ratio 0.6 (1.0-2.2) L 05/29/22 06:20 Lipase 35 U/L (22-51) 05/29/22 06:20 TSH 2.68 uIU/mL (0.34-5.60) 05/30/22 04:50 Urine Color DARK YELLOW 05/28/22 12:07 Urine Clarity CLEAR (CLEAR) 05/28/22 12:07 Urine pH 6.0 PH (5.0-7.5) 05/28/22 12:07 Ur Specific [place] 1.025 (1.002-1.030) 05/28/22 12:07 Urine Protein 30 mg/dL (NEGATIVE) H 05/28/22 12:07 Urine Glucose (UA) NEGATIVE mg/dL (NEGATIVE) 05/28/22 12:07 Urine Ketones 15 mg/dL (NEGATIVE) H 05/28/22 12:07 Urine Occult Blood LARGE (NEGATIVE) H 05/28/22 12:07 Urine Nitrite NEGATIVE (NEGATIVE) 05/28/22 12:07 Urine Bilirubin NEGATIVE (NEGATIVE) 05/28/22 12:07 Urine Urobilinogen 1 (NORMAL) E.U./dL (NORMAL) 05/28/22 12:07 Ur Leukocyte Esterase NEGATIVE (NEGATIVE) 05/28/22 12:07 Urine RBC TNTC /HPF (0-5) H 05/28/22 12:07 Urine WBC 6-10 /HPF (0-3) H 05/28/22 12:07 Ur Epithelial Cells MOD Transitional /HPF (<= Few) H 05/28/22 12:07 Ur Squamous Epith Cells FEW Squamous (<= Few) 05/28/22 12:07 Urine Bacteria Few /HPF (None Seen) 05/28/22 12:07 Urine Casts 6-10 Hyaline Casts /LPF 05/28/22 12:07 Ur Microscopic Review INDICATED 05/28/22 12:07 Urine Culture Comments NOT INDICATED 05/28/22 12:07 Coronavirus (PCR) NEGATIVE 05/29/22 14:20 - Procedures Procedures: Procedures ENDO RECTUM POLYPECTOMY (04/27/15) ENDOSC POLYPECTOMY OF LG INTEST (04/27/15) EXCISION OF ASCENDING COLON, ENDO, DIAGN (05/02/17) EXCISION OF DESCENDING COLON, ENDO, DIAGN (05/02/17) EXCISION OF LEFT LOWER LEG SKIN, EXTERNAL APPROACH, DIAGN (11/16/20) EXCISION OF TRANSVERSE COLON, ENDO, DIAGN (05/02/17)
[2022-06-20] MEDS: MORPHINE IR 15 MG TABLET PO SCH ×3 (06:52→20:17)
[2022-06-20] MEDS: MULTIVITAMIN W/MINERALS TABLET PO SCH (08:57)
[2022-06-20] MEDS: SENNA 8.6 MG TABLET PO SCH (08:57)
[2022-06-20] MEDS: polyethylene glycoL 3350 17 GM PACKET PO SCH (08:58)
[2022-06-20] MEDS: ENOXAPARIN 40 MG/0.4 ML SYRINGE SUBQ SCH (08:58)
--- NOTE | 2022-06-20 15:32 | PROVIDER PROGRESS NOTE ---
Assessment/Plan - Problem List (1) Metastatic lung cancer (metastasis from lung to other site) Qualifiers: Qualified Code(s): C34.90 - Malignant neoplasm of unspecified part of unspecified bronchus or lung Assessment/Plan: He has a neoplasm of uncertain behavior in the right lower lung. This tumor is eroding into his R rib cage and you can actually put your finger on the outside of his chest wall to feel it. He has had a profound decrease in functional status, has cachexia, and had near immobility when he came into the hospital. He has improved in that he is now eating, gained a little weight, and is able to get up and move around the room a bit, and has worked with PT and OT and met the goals. He lived alone and therefore he can no longer be safely discharged to there. He was started on scheduled oral morphine 3 times daily, which makes him very sleepy. I will decrease the dose slightly. (2) Severe protein calorie malnutrition He has severe protein calorie malnutrition that is slowly improving, but overall we think he will succumb to his neoplasm. (3) Cognitive impairment He has cognitive impairment that renders him unable to make his own decisions. He lived alone and therefore can no longer be safely discharged to there. We are awaiting an emergency guardianship to be established to make plans for this gentleman. He would like to be in Hospice. The previous Hospitalist did speak to an defense attorney 06/13/22 who is pursuing this whole process with the hospital. - Current Meds Current Meds: Current Medications Generic Name Dose Route Start Last Admin Trade Name Freq PRN Reason Stop Dose Admin Acetaminophen 650 mg 05/29/22 14:15 06/02/22 17:16 Acetaminophen 325 Mg Tablet PO 650 mg Q4HR PRN Administration Pain 1 to 4, or Fever Enoxaparin Sodium 40 mg 05/30/22 09:00 06/20/22 08:58 Enoxaparin 40 Mg/0.4 Ml Syringe SUBQ 40 mg DAILY MICHAELA Administration Morphine Sulfate 7.5 mg 06/14/22 22:00 06/20/22 14:27 Morphine Ir 15 Mg Tablet PO 7.5 mg TID MICHAELA Administration Multi-Ingredient Ointment 1 applic 05/30/22 22:39 06/17/22 05:56 Zinc Oxide 20% Oint 30 Gm Tube TOP 1 applic PRN PRN Administration Skin Care Multivitamins/Minerals 1 tab 05/30/22 11:00 06/20/22 08:57 Multivitamin W/Minerals Tablet PO 1 tab DAILYWM MICHAELA Administration Polyethylene Glycol 17 gm 05/30/22 09:00 06/20/22 08:58 Polyethylene Glycol 3350 17 Gm Packet PO 17 gm DAILY MICHAELA Administration Senna 8.6 - 17.2 mg 06/20/22 09:00 06/20/22 08:57 Senna 8.6 Mg Tablet PO 8.6 mg DAILY MICHAELA Administration - Lab Result Fish Bone Diagrams: 06/12/22 11:08 06/12/22 11:08 Subjective - Subjective Patient Reports: Resting Comfortably, No Complaints Objective Vital Signs: Vital Signs - 24 hr 06/19/22 06/20/22 15:53 07:38 Temperature 36.9 C 36.6 C Heart Rate [ 68 61 Brachial] Respiratory 24 16 Rate Blood Pressure 123/46 L 104/45 L [Right Brachial artery] O2 Saturation 96 95 Oxygen O2 Source Room air I&O (Last 24 Hrs): Intake and Output Totals x24h 06/18/22 06/19/22 06/20/22 23:59 23:59 23:59 Intake Total 900 750 720 Output Total 850 825 625 Balance 50 -75 95 General: Other (Sleepy after each meal) HEENT: Mucous membr. moist/pink Neck: Supple, No JVD Neuro: Alert, Non Focal, Other ([place]) Cardiovascular: Regular rate Respiratory: No respiratory distress Abdomen: Soft Extremities: No edema - Results Results: Laboratory Results WBC 5.4 x10^3/uL (4.8-10.8) 06/12/22 11:08 RBC 3.04 10^6/uL (4.70-6.10) L 06/12/22 11:08 Hgb 7.9 g/dL (14.0-18.0) L 06/12/22 11:08 Hct 25.6 % (42.0-52.0) L 06/12/22 11:08 MCV 84.2 fL (80.0-94.0) 06/12/22 11:08 MCH 26.0 pg (27.0-31.0) L 06/12/22 11:08 MCHC 30.9 g/dL (32.0-36.0) L 06/12/22 11:08 RDW 17.2 % (12.0-15.0) H 06/12/22 11:08 Plt Count 368 10^3/uL (130-450) 06/12/22 11:08 MPV 8.6 fL (7.4-11.4) 06/12/22 11:08 Neut # (Auto) 3.9 10^3/uL (1.5-6.6) 06/12/22 11:08 Lymph # (Auto) 0.8 10^3/uL (1.5-3.5) L 06/12/22 11:08 [place] # (Auto) 0.6 10^3/uL (0.0-1.0) 06/12/22 11:08 Eos # (Auto) 0.1 10^3/uL (0.0-0.7) 06/12/22 11:08 Baso # (Auto) 0.0 10^3/uL (0.0-0.1) 06/12/22 11:08 Absolute Nucleated RBC 0.00 x10^3/uL 06/12/22 11:08 Nucleated RBC % 0.0 /100WBC 06/12/22 11:08 PT 13.8 secs (9.9-12.6) H 05/30/22 04:50 INR 1.3 (0.8-1.2) H 05/30/22 04:50 Sodium 135 mmol/L (135-145) 06/12/22 11:08 Potassium 4.3 mmol/L (3.5-5.0) 06/12/22 11:08 Chloride 97 mmol/L (101-111) L 06/12/22 11:08 Carbon Dioxide 30 mmol/L (21-32) 06/12/22 11:08 Anion Gap 8.0 (6-13) 06/12/22 11:08 BUN 22 mg/dL (6-20) H 06/12/22 11:08 Creatinine 0.6 mg/dL (0.6-1.2) 06/12/22 11:08 Estimated GFR (MDRD) 129 (>89) 06/12/22 11:08 Glucose 125 mg/dL (70-100) H 06/12/22 11:08 Calcium 8.3 mg/dL (8.5-10.3) L 06/12/22 11:08 Phosphorus 1.1 mg/dL (2.5-4.6) L 05/30/22 04:50 Magnesium 2.1 mg/dL (1.7-2.8) 06/07/22 05:01 Total Bilirubin 0.8 mg/dL (0.2-1.0) 05/29/22 06:20 AST 20 IU/L (10-42) 05/29/22 06:20 ALT 17 IU/L (10-60) 05/29/22 06:20 Alkaline Phosphatase 58 IU/L (42-121) 05/29/22 06:20 Total Creatine Kinase 87 IU/L (22-269) 05/28/22 11:50 Total Protein 6.4 g/dL (6.7-8.2) L 05/29/22 06:20 Albumin 2.5 g/dL (3.2-5.5) L 05/29/22 06:20 Globulin 3.9 g/dL (2.1-4.2) 05/29/22 06:20 Albumin/Globulin Ratio 0.6 (1.0-2.2) L 05/29/22 06:20 Lipase 35 U/L (22-51) 05/29/22 06:20 TSH 2.68 uIU/mL (0.34-5.60) 05/30/22 04:50 Urine Color DARK YELLOW 05/28/22 12:07 Urine Clarity CLEAR (CLEAR) 05/28/22 12:07 Urine pH 6.0 PH (5.0-7.5) 05/28/22 12:07 Ur Specific [place] 1.025 (1.002-1.030) 05/28/22 12:07 Urine Protein 30 mg/dL (NEGATIVE) H 05/28/22 12:07 Urine Glucose (UA) NEGATIVE mg/dL (NEGATIVE) 05/28/22 12:07 Urine Ketones 15 mg/dL (NEGATIVE) H 05/28/22 12:07 Urine Occult Blood LARGE (NEGATIVE) H 05/28/22 12:07 Urine Nitrite NEGATIVE (NEGATIVE) 05/28/22 12:07 Urine Bilirubin NEGATIVE (NEGATIVE) 05/28/22 12:07 Urine Urobilinogen 1 (NORMAL) E.U./dL (NORMAL) 05/28/22 12:07 Ur Leukocyte Esterase NEGATIVE (NEGATIVE) 05/28/22 12:07 Urine RBC TNTC /HPF (0-5) H 05/28/22 12:07 Urine WBC 6-10 /HPF (0-3) H 05/28/22 12:07 Ur Epithelial Cells MOD Transitional /HPF (<= Few) H 05/28/22 12:07 Ur Squamous Epith Cells FEW Squamous (<= Few) 05/28/22 12:07 Urine Bacteria Few /HPF (None Seen) 05/28/22 12:07 Urine Casts 6-10 Hyaline Casts /LPF 05/28/22 12:07 Ur Microscopic Review INDICATED 05/28/22 12:07 Urine Culture Comments NOT INDICATED 05/28/22 12:07 Coronavirus (PCR) NEGATIVE 05/29/22 14:20 - Procedures Procedures: Procedures ENDO RECTUM POLYPECTOMY (04/27/15) ENDOSC POLYPECTOMY OF LG INTEST (04/27/15) EXCISION OF ASCENDING COLON, ENDO, DIAGN (05/02/17) EXCISION OF DESCENDING COLON, ENDO, DIAGN (05/02/17) EXCISION OF LEFT LOWER LEG SKIN, EXTERNAL APPROACH, DIAGN (11/16/20) EXCISION OF TRANSVERSE COLON, ENDO, DIAGN (05/02/17)
[2022-06-21] MEDS: MORPHINE IR 15 MG TABLET PO SCH ×2 (08:56→21:02)
[2022-06-21] MEDS: ENOXAPARIN 40 MG/0.4 ML SYRINGE SUBQ SCH (08:56)
[2022-06-21] MEDS: polyethylene glycoL 3350 17 GM PACKET PO SCH (08:57)
[2022-06-21] MEDS: SENNA 8.6 MG TABLET PO SCH (08:57)
[2022-06-21] MEDS: MULTIVITAMIN W/MINERALS TABLET PO SCH (08:58)
[2022-06-21] MEDS ORDERED: MAGNESIUM HYDROXIDE 2,400 MG/30 ML UDC PO ONE (09:45)
--- NOTE | 2022-06-21 10:42 | PROVIDER PROGRESS NOTE ---
Assessment/Plan - Problem List (1) Metastatic lung cancer (metastasis from lung to other site) Qualifiers: Qualified Code(s): C34.90 - Malignant neoplasm of unspecified part of unspecified bronchus or lung Assessment/Plan: He has a neoplasm of uncertain behavior in the right lower lung. This tumor is eroding into his R rib cage and you can actually put your finger on the outside of his chest wall to feel it. He has had a profound decrease in functional status, has cachexia, and had near immobility when he came into the hospital. He has improved in that he is now eating, gained a little weight, and is able to get up and move around the room a bit, and has worked with PT and OT and met the goals. He lived alone and therefore he can no longer be safely discharged to there. He was started on scheduled oral morphine 3 times daily, which makes him very sleepy. I have decreased the dose to bid 2 days ago, plus Oxycodone is available prn. (2) Severe protein calorie malnutrition He has severe protein calorie malnutrition that is slowly improving, but overall we think he will succumb to his neoplasm. We will check routine labs in a.m., since none have been done for over a week (3) Cognitive impairment He has cognitive impairment that renders him unable to make his own decisions. He lived alone and therefore can no longer be safely discharged to there. We are awaiting an emergency guardianship to be established to make plans for this gentleman. He would like to be in Hospice. The previous Hospitalist did speak to an criminal attorney 06/13/22 who is pursuing this whole process with the hospital. - Current Meds Current Meds: Current Medications Generic Name Dose Route Start Last Admin Trade Name Freq PRN Reason Stop Dose Admin Acetaminophen 650 mg 05/29/22 14:15 06/02/22 17:16 Acetaminophen 325 Mg Tablet PO 650 mg Q4HR PRN Administration Pain 1 to 4, or Fever Enoxaparin Sodium 40 mg 05/30/22 09:00 06/21/22 08:56 Enoxaparin 40 Mg/0.4 Ml Syringe SUBQ 40 mg DAILY MICHAELA Administration Morphine Sulfate 7.5 mg 06/20/22 21:00 06/21/22 08:56 Morphine Ir 15 Mg Tablet PO 7.5 mg BID MICHAELA Administration Multi-Ingredient Ointment 1 applic 05/30/22 22:39 06/17/22 05:56 Zinc Oxide 20% Oint 30 Gm Tube TOP 1 applic PRN PRN Administration Skin Care Multivitamins/Minerals 1 tab 05/30/22 11:00 06/21/22 08:58 Multivitamin W/Minerals Tablet PO 1 tab DAILYWM MICHAELA Administration Polyethylene Glycol 17 gm 05/30/22 09:00 06/21/22 08:57 Polyethylene Glycol 3350 17 Gm Packet PO 17 gm DAILY MICHAELA Administration Senna 8.6 - 17.2 mg 06/20/22 09:00 06/21/22 08:57 Senna 8.6 Mg Tablet PO 8.6 mg DAILY MICHAELA Administration - Lab Result Fish Bone Diagrams: 06/22/22 04:40 06/22/22 04:40 - Additional Planning My Orders: My Active Orders 06/20/22 21:00 Morphine Ir [Ms Ir] 7.5 mg PO BID 06/21/22 08:53 Psyllium [Metamucil] 1 packet PO DAILY PRN 06/21/22 17:00 Saccharomyces Boulardii [Florastor] 250 mg PO BIDWM 06/22/22 05:00 BMP - BASIC METABOLIC PANEL [CHEM] DAILYLAB CBC - COMP BLD CT W/AUTO DIFF [HEME] DAILYLAB Subjective - Subjective Patient Reports: Resting Comfortably, No Complaints Objective Vital Signs: Vital Signs - 24 hr 06/20/22 06/21/22 15:59 07:30 Temperature 36.9 C 36.4 C L Heart Rate [ 65 60 Brachial] Respiratory 24 18 Rate Blood Pressure 113/51 L 97/44 L [Right Brachial artery] O2 Saturation 95 96 Oxygen O2 Source Room air I&O (Last 24 Hrs): Intake and Output Totals x24h 06/19/22 06/20/22 06/21/22 23:59 23:59 23:59 Intake Total 750 1060 300 Output Total 825 800 225 Balance -75 260 75 General: Alert HEENT: Mucous membr. moist/pink Neck: Supple Neuro: Alert, Other ([place]) Cardiovascular: No murmurs Respiratory: No respiratory distress, Breath sounds nml Abdomen: Soft Extremities: No edema - Results Results: Laboratory Results WBC 5.4 x10^3/uL (4.8-10.8) 06/12/22 11:08 RBC 3.04 10^6/uL (4.70-6.10) L 06/12/22 11:08 Hgb 7.9 g/dL (14.0-18.0) L 06/12/22 11:08 Hct 25.6 % (42.0-52.0) L 06/12/22 11:08 MCV 84.2 fL (80.0-94.0) 06/12/22 11:08 MCH 26.0 pg (27.0-31.0) L 06/12/22 11:08 MCHC 30.9 g/dL (32.0-36.0) L 06/12/22 11:08 RDW 17.2 % (12.0-15.0) H 06/12/22 11:08 Plt Count 368 10^3/uL (130-450) 06/12/22 11:08 MPV 8.6 fL (7.4-11.4) 06/12/22 11:08 Neut # (Auto) 3.9 10^3/uL (1.5-6.6) 06/12/22 11:08 Lymph # (Auto) 0.8 10^3/uL (1.5-3.5) L 06/12/22 11:08 [place] # (Auto) 0.6 10^3/uL (0.0-1.0) 06/12/22 11:08 Eos # (Auto) 0.1 10^3/uL (0.0-0.7) 06/12/22 11:08 Baso # (Auto) 0.0 10^3/uL (0.0-0.1) 06/12/22 11:08 Absolute Nucleated RBC 0.00 x10^3/uL 06/12/22 11:08 Nucleated RBC % 0.0 /100WBC 06/12/22 11:08 PT 13.8 secs (9.9-12.6) H 05/30/22 04:50 INR 1.3 (0.8-1.2) H 05/30/22 04:50 Sodium 135 mmol/L (135-145) 06/12/22 11:08 Potassium 4.3 mmol/L (3.5-5.0) 06/12/22 11:08 Chloride 97 mmol/L (101-111) L 06/12/22 11:08 Carbon Dioxide 30 mmol/L (21-32) 06/12/22 11:08 Anion Gap 8.0 (6-13) 06/12/22 11:08 BUN 22 mg/dL (6-20) H 06/12/22 11:08 Creatinine 0.6 mg/dL (0.6-1.2) 06/12/22 11:08 Estimated GFR (MDRD) 129 (>89) 06/12/22 11:08 Glucose 125 mg/dL (70-100) H 06/12/22 11:08 Calcium 8.3 mg/dL (8.5-10.3) L 06/12/22 11:08 Phosphorus 1.1 mg/dL (2.5-4.6) L 05/30/22 04:50 Magnesium 2.1 mg/dL (1.7-2.8) 06/07/22 05:01 Total Bilirubin 0.8 mg/dL (0.2-1.0) 05/29/22 06:20 AST 20 IU/L (10-42) 05/29/22 06:20 ALT 17 IU/L (10-60) 05/29/22 06:20 Alkaline Phosphatase 58 IU/L (42-121) 05/29/22 06:20 Total Creatine Kinase 87 IU/L (22-269) 05/28/22 11:50 Total Protein 6.4 g/dL (6.7-8.2) L 05/29/22 06:20 Albumin 2.5 g/dL (3.2-5.5) L 05/29/22 06:20 Globulin 3.9 g/dL (2.1-4.2) 05/29/22 06:20 Albumin/Globulin Ratio 0.6 (1.0-2.2) L 05/29/22 06:20 Lipase 35 U/L (22-51) 05/29/22 06:20 TSH 2.68 uIU/mL (0.34-5.60) 05/30/22 04:50 Urine Color DARK YELLOW 05/28/22 12:07 Urine Clarity CLEAR (CLEAR) 05/28/22 12:07 Urine pH 6.0 PH (5.0-7.5) 05/28/22 12:07 Ur Specific [place] 1.025 (1.002-1.030) 05/28/22 12:07 Urine Protein 30 mg/dL (NEGATIVE) H 05/28/22 12:07 Urine Glucose (UA) NEGATIVE mg/dL (NEGATIVE) 05/28/22 12:07 Urine Ketones 15 mg/dL (NEGATIVE) H 05/28/22 12:07 Urine Occult Blood LARGE (NEGATIVE) H 05/28/22 12:07 Urine Nitrite NEGATIVE (NEGATIVE) 05/28/22 12:07 Urine Bilirubin NEGATIVE (NEGATIVE) 05/28/22 12:07 Urine Urobilinogen 1 (NORMAL) E.U./dL (NORMAL) 05/28/22 12:07 Ur Leukocyte Esterase NEGATIVE (NEGATIVE) 05/28/22 12:07 Urine RBC TNTC /HPF (0-5) H 05/28/22 12:07 Urine WBC 6-10 /HPF (0-3) H 05/28/22 12:07 Ur Epithelial Cells MOD Transitional /HPF (<= Few) H 05/28/22 12:07 Ur Squamous Epith Cells FEW Squamous (<= Few) 05/28/22 12:07 Urine Bacteria Few /HPF (None Seen) 05/28/22 12:07 Urine Casts 6-10 Hyaline Casts /LPF 05/28/22 12:07 Ur Microscopic Review INDICATED 05/28/22 12:07 Urine Culture Comments NOT INDICATED 05/28/22 12:07 Coronavirus (PCR) NEGATIVE 05/29/22 14:20 - Procedures Procedures: Procedures ENDO RECTUM POLYPECTOMY (04/27/15) ENDOSC POLYPECTOMY OF LG INTEST (04/27/15) EXCISION OF ASCENDING COLON, ENDO, DIAGN (05/02/17) EXCISION OF DESCENDING COLON, ENDO, DIAGN (05/02/17) EXCISION OF LEFT LOWER LEG SKIN, EXTERNAL APPROACH, DIAGN (11/16/20) EXCISION OF TRANSVERSE COLON, ENDO, DIAGN (05/02/17)
[2022-06-21] MEDS: SACCHAROMYCES BOULARDII 250 MG CAPSULE PO SCH (17:11)
[2022-06-22 04:59] LABS: BASOPHILS # (AUTO) 0.1 10^3/uL (0.0-0.1); BASOPHILS % (AUTO) 0.8 %; EOSINOPHILS # (AUTO) 0.1 10^3/uL (0.0-0.7); EOSINOPHILS % (AUTO) 0.9 %; HCT - HEMATOCRIT 27.6 % (42.0-52.0); HGB - HEMOGLOBIN 8.4 g/dL (14.0-18.0); LYMPHOCYTES # (AUTO) 1.6 10^3/uL (1.5-3.5); LYMPHOCYTES % (AUTO) 17.1 %; MEAN CORPUSCULAR HEMOGLOBIN 25.6 pg (27.0-31.0); MEAN CORPUSCULAR HGB CONC 30.4 g/dL (32.0-36.0); MEAN CORPUSCULAR VOLUME 84.1 fL (80.0-94.0); MEAN PLATELET VOLUME 8.6 fL (7.4-11.4); MONOCYTES # (AUTO) 1.3 10^3/uL (0.0-1.0); MONOCYTES % (AUTO) 14.6 %; NEUTROPHILS # (AUTO) 5.6 10^3/uL (1.5-6.6); PLT - PLATELET COUNT 560 10^3/uL (130-450); RED BLOOD COUNT 3.28 10^6/uL (4.70-6.10); RED CELL DISTRIBUTION WIDTH 15.9 % (12.0-15.0); WHITE BLOOD COUNT 9.1 x10^3/uL (4.8-10.8)
[2022-06-22 05:09] LABS: CALCIUM 8.5 mg/dL (8.5-10.3); CREATININE 0.7 mg/dL (0.6-1.2); POTASSIUM 4.1 mmol/L (3.5-5.0)
[2022-06-22] MEDS: MORPHINE IR 15 MG TABLET PO SCH ×2 (08:46→20:23)
[2022-06-22] MEDS: MULTIVITAMIN W/MINERALS TABLET PO SCH (08:46)
[2022-06-22] MEDS: SACCHAROMYCES BOULARDII 250 MG CAPSULE PO SCH ×2 (08:46→15:47)
[2022-06-22] MEDS: ENOXAPARIN 40 MG/0.4 ML SYRINGE SUBQ SCH (08:46)
[2022-06-22] MEDS: SENNA 8.6 MG TABLET PO SCH (08:46)
[2022-06-22] MEDS: polyethylene glycoL 3350 17 GM PACKET PO SCH (08:47)
--- NOTE | 2022-06-22 11:35 | PROVIDER PROGRESS NOTE ---
Assessment/Plan - Problem List (1) Metastatic lung cancer (metastasis from lung to other site) Qualifiers: Qualified Code(s): C34.90 - Malignant neoplasm of unspecified part of unspecified bronchus or lung Assessment/Plan: He has a neoplasm of uncertain behavior in the right lower lung. This tumor is eroding into his R rib cage and you can actually put your finger on the outside of his chest wall to feel it. He has had a profound decrease in functional status, has cachexia, and had near immobility when he came into the hospital. He has improved in that he is now eating, gained a little weight, and is able to get up and move around the room a bit, and has worked with PT and OT and met the goals. He lived alone and therefore he can no longer be safely discharged to there. He was started on scheduled oral morphine 3 times daily, which makes him very sleepy. I have decreased the dose to bid 2 days ago, plus Oxycodone is available prn. (2) Severe protein calorie malnutrition He has severe protein calorie malnutrition that is slowly improving, but overall we think he will succumb to his neoplasm. We checked routine labs this a.m., since none had been done for over a week, and they are all stable. (3) Cognitive impairment He has cognitive impairment that renders him unable to make his own decisions. He lived alone and therefore can no longer be safely discharged to there. We are awaiting an emergency guardianship to be established to make plans for this gentleman. He would like to be in Hospice. The previous Hospitalist did speak to an banking attorney 06/13/22 who is pursuing this whole process with the hospital. - Current Meds Current Meds: Current Medications Generic Name Dose Route Start Last Admin Trade Name Freq PRN Reason Stop Dose Admin Acetaminophen 650 mg 05/29/22 14:15 06/02/22 17:16 Acetaminophen 325 Mg Tablet PO 650 mg Q4HR PRN Administration Pain 1 to 4, or Fever Enoxaparin Sodium 40 mg 05/30/22 09:00 06/22/22 08:46 Enoxaparin 40 Mg/0.4 Ml Syringe SUBQ 40 mg DAILY MICHAELA Administration Morphine Sulfate 7.5 mg 06/20/22 21:00 06/22/22 08:46 Morphine Ir 15 Mg Tablet PO 7.5 mg BID MICHAELA Administration Multi-Ingredient Ointment 1 applic 05/30/22 22:39 06/17/22 05:56 Zinc Oxide 20% Oint 30 Gm Tube TOP 1 applic PRN PRN Administration Skin Care Multivitamins/Minerals 1 tab 05/30/22 11:00 06/22/22 08:46 Multivitamin W/Minerals Tablet PO 1 tab DAILYWM MICHAELA Administration Polyethylene Glycol 17 gm 05/30/22 09:00 06/22/22 08:47 Polyethylene Glycol 3350 17 Gm Packet PO 17 gm DAILY MICHAELA Administration Saccharomyces Boulardii 250 mg 06/21/22 17:00 06/22/22 08:46 Saccharomyces Boulardii 250 Mg Capsule PO 250 mg BIDWM MICHAELA Administration Senna 8.6 - 17.2 mg 06/20/22 09:00 06/22/22 08:46 Senna 8.6 Mg Tablet PO 8.6 mg DAILY MICHAELA Administration - Lab Result Fish Bone Diagrams: 06/22/22 04:40 06/22/22 04:40 - Additional Planning My Orders: My Active Orders 06/21/22 17:00 Saccharomyces Boulardii [Florastor] 250 mg PO BIDWM Subjective - Subjective Patient Reports: Resting Comfortably, No Complaints Objective Vital Signs: Vital Signs - 24 hr 06/21/22 06/22/22 15:36 07:44 Temperature 36.7 C 36.5 C Heart Rate [ 63 61 Brachial] Respiratory 18 18 Rate Blood Pressure 110/57 L 103/46 L [Right Brachial artery] O2 Saturation 97 94 Oxygen O2 Source Room air I&O (Last 24 Hrs): Intake and Output Totals x24h 06/20/22 06/21/22 06/22/22 23:59 23:59 23:59 Intake Total 1060 760 240 Output Total 800 675 275 Balance 260 85 -35 General: Alert, Oriented x3 HEENT: Mucous membr. moist/pink Neck: Supple, No JVD Neuro: Alert, Other ([place]) Cardiovascular: Regular rate Respiratory: No respiratory distress Abdomen: Soft Extremities: No clubbing, No edema - Results Results: Laboratory Results WBC 9.1 x10^3/uL (4.8-10.8) 06/22/22 04:40 RBC 3.28 10^6/uL (4.70-6.10) L 06/22/22 04:40 Hgb 8.4 g/dL (14.0-18.0) L 06/22/22 04:40 Hct 27.6 % (42.0-52.0) L 06/22/22 04:40 MCV 84.1 fL (80.0-94.0) 06/22/22 04:40 MCH 25.6 pg (27.0-31.0) L 06/22/22 04:40 MCHC 30.4 g/dL (32.0-36.0) L 06/22/22 04:40 RDW 15.9 % (12.0-15.0) H 06/22/22 04:40 Plt Count 560 10^3/uL (130-450) H 06/22/22 04:40 MPV 8.6 fL (7.4-11.4) 06/22/22 04:40 Neut # (Auto) 5.6 10^3/uL (1.5-6.6) 06/22/22 04:40 Lymph # (Auto) 1.6 10^3/uL (1.5-3.5) 06/22/22 04:40 [place] # (Auto) 1.3 10^3/uL (0.0-1.0) H 06/22/22 04:40 Eos # (Auto) 0.1 10^3/uL (0.0-0.7) 06/22/22 04:40 Baso # (Auto) 0.1 10^3/uL (0.0-0.1) 06/22/22 04:40 Absolute Nucleated RBC 0.00 x10^3/uL 06/22/22 04:40 Nucleated RBC % 0.0 /100WBC 06/22/22 04:40 PT 13.8 secs (9.9-12.6) H 05/30/22 04:50 INR 1.3 (0.8-1.2) H 05/30/22 04:50 Sodium 134 mmol/L (135-145) L 06/22/22 04:40 Potassium 4.1 mmol/L (3.5-5.0) 06/22/22 04:40 Chloride 98 mmol/L (101-111) L 06/22/22 04:40 Carbon Dioxide 28 mmol/L (21-32) 06/22/22 04:40 Anion Gap 8.0 (6-13) 06/22/22 04:40 BUN 22 mg/dL (6-20) H 06/22/22 04:40 Creatinine 0.7 mg/dL (0.6-1.2) 06/22/22 04:40 Estimated GFR (MDRD) 108 (>89) 06/22/22 04:40 Glucose 101 mg/dL (70-100) H 06/22/22 04:40 Calcium 8.5 mg/dL (8.5-10.3) 06/22/22 04:40 Phosphorus 1.1 mg/dL (2.5-4.6) L 05/30/22 04:50 Magnesium 2.1 mg/dL (1.7-2.8) 06/07/22 05:01 Total Bilirubin 0.8 mg/dL (0.2-1.0) 05/29/22 06:20 AST 20 IU/L (10-42) 05/29/22 06:20 ALT 17 IU/L (10-60) 05/29/22 06:20 Alkaline Phosphatase 58 IU/L (42-121) 05/29/22 06:20 Total Creatine Kinase 87 IU/L (22-269) 05/28/22 11:50 Total Protein 6.4 g/dL (6.7-8.2) L 05/29/22 06:20 Albumin 2.5 g/dL (3.2-5.5) L 05/29/22 06:20 Globulin 3.9 g/dL (2.1-4.2) 05/29/22 06:20 Albumin/Globulin Ratio 0.6 (1.0-2.2) L 05/29/22 06:20 Lipase 35 U/L (22-51) 05/29/22 06:20 TSH 2.68 uIU/mL (0.34-5.60) 05/30/22 04:50 Urine Color DARK YELLOW 05/28/22 12:07 Urine Clarity CLEAR (CLEAR) 05/28/22 12:07 Urine pH 6.0 PH (5.0-7.5) 05/28/22 12:07 Ur Specific [place] 1.025 (1.002-1.030) 05/28/22 12:07 Urine Protein 30 mg/dL (NEGATIVE) H 05/28/22 12:07 Urine Glucose (UA) NEGATIVE mg/dL (NEGATIVE) 05/28/22 12:07 Urine Ketones 15 mg/dL (NEGATIVE) H 05/28/22 12:07 Urine Occult Blood LARGE (NEGATIVE) H 05/28/22 12:07 Urine Nitrite NEGATIVE (NEGATIVE) 05/28/22 12:07 Urine Bilirubin NEGATIVE (NEGATIVE) 05/28/22 12:07 Urine Urobilinogen 1 (NORMAL) E.U./dL (NORMAL) 05/28/22 12:07 Ur Leukocyte Esterase NEGATIVE (NEGATIVE) 05/28/22 12:07 Urine RBC TNTC /HPF (0-5) H 05/28/22 12:07 Urine WBC 6-10 /HPF (0-3) H 05/28/22 12:07 Ur Epithelial Cells MOD Transitional /HPF (<= Few) H 05/28/22 12:07 Ur Squamous Epith Cells FEW Squamous (<= Few) 05/28/22 12:07 Urine Bacteria Few /HPF (None Seen) 05/28/22 12:07 Urine Casts 6-10 Hyaline Casts /LPF 05/28/22 12:07 Ur Microscopic Review INDICATED 05/28/22 12:07 Urine Culture Comments NOT INDICATED 05/28/22 12:07 Coronavirus (PCR) NEGATIVE 05/29/22 14:20 - Procedures Procedures: Procedures ENDO RECTUM POLYPECTOMY (04/27/15) ENDOSC POLYPECTOMY OF LG INTEST (04/27/15) EXCISION OF ASCENDING COLON, ENDO, DIAGN (05/02/17) EXCISION OF DESCENDING COLON, ENDO, DIAGN (05/02/17) EXCISION OF LEFT LOWER LEG SKIN, EXTERNAL APPROACH, DIAGN (11/16/20) EXCISION OF TRANSVERSE COLON, ENDO, DIAGN (05/02/17)
[2022-06-22] MEDS: PSYLLIUM PACKET PO PRN (15:47)
[2022-06-23] MEDS: MULTIVITAMIN W/MINERALS TABLET PO SCH (08:00)
[2022-06-23] MEDS: SACCHAROMYCES BOULARDII 250 MG CAPSULE PO SCH ×2 (08:00→16:37)
[2022-06-23] MEDS ORDERED: BISACODYL 10 MG SUPP PR ONE (09:00)
[2022-06-23] MEDS: DOCUSATE SODIUM 250 MG CAPSULE PO SCH (10:40)
[2022-06-23] MEDS: ENOXAPARIN 40 MG/0.4 ML SYRINGE SUBQ SCH (10:41)
[2022-06-23] MEDS: MORPHINE IR 15 MG TABLET PO SCH ×2 (10:46→21:09)
[2022-06-23] MEDS: SENNA 8.6 MG TABLET PO SCH (10:47)
[2022-06-23] MEDS: polyethylene glycoL 3350 17 GM PACKET PO SCH (12:04)
--- NOTE | 2022-06-23 13:19 | PROVIDER PROGRESS NOTE ---
Assessment/Plan - Problem List (1) Metastatic lung cancer (metastasis from lung to other site) Qualifiers: Qualified Code(s): C34.90 - Malignant neoplasm of unspecified part of unspecified bronchus or lung Assessment/Plan: He has a neoplasm of uncertain behavior in the right lower lung. This tumor is eroding into his R rib cage and you can actually put your finger on the outside of his chest wall to feel it. He has had a profound decrease in functional status, has cachexia, and had near immobility when he came into the hospital. He has improved in that he is now eating, gained a little weight, and is able to get up and move around the room a bit, and has worked with PT and OT and met the goals. He lived alone and therefore he can no longer be safely discharged to there. He was started on scheduled oral morphine 3 times daily, which makes him very sleepy. I have decreased the dose to bid 2 days ago, plus Oxycodone is available prn. (2) Fatigue For the last 2 days, he has not even wanted to get out of bed for meals, says he is too tired. This is despite lowering his dose of narcotics from 3 times daily scheduled to twice daily scheduled. Presume this could be a sign of him starting to succumb to his metastatic cancer. (3) Severe protein calorie malnutrition He has severe protein calorie malnutrition that is slowly improving, but overall we think he will succumb to his neoplasm. We checked routine labs yesterday, since none had been done for over a week, and they were all stable. (4) Cognitive impairment He has cognitive impairment that renders him unable to make his own decisions. He lived alone and therefore can no longer be safely discharged to there. We are awaiting an emergency guardianship to be established to make plans for this gentleman. He would like to be in Hospice. The previous Hospitalist did speak to an single end sewer 06/13/22 who is pursuing this whole process with the hospital. - Current Meds Current Meds: Current Medications Generic Name Dose Route Start Last Admin Trade Name Freq PRN Reason Stop Dose Admin Acetaminophen 650 mg 05/29/22 14:15 06/02/22 17:16 Acetaminophen 325 Mg Tablet PO 650 mg Q4HR PRN Administration Pain 1 to 4, or Fever Docusate Sodium 250 - 500 mg 06/23/22 09:00 06/23/22 10:40 Docusate Sodium 250 Mg Capsule PO 250 mg DAILY MICHAELA Administration Enoxaparin Sodium 40 mg 05/30/22 09:00 06/23/22 10:41 Enoxaparin 40 Mg/0.4 Ml Syringe SUBQ 40 mg DAILY MICHAELA Administration Morphine Sulfate 7.5 mg 06/20/22 21:00 06/23/22 10:46 Morphine Ir 15 Mg Tablet PO 7.5 mg BID MICHAELA Administration Multi-Ingredient Ointment 1 applic 05/30/22 22:39 06/17/22 05:56 Zinc Oxide 20% Oint 30 Gm Tube TOP 1 applic PRN PRN Administration Skin Care Multivitamins/Minerals 1 tab 05/30/22 11:00 06/23/22 08:00 Multivitamin W/Minerals Tablet PO 1 tab DAILYWM MICHAELA Administration Polyethylene Glycol 17 gm 05/30/22 09:00 06/23/22 12:04 Polyethylene Glycol 3350 17 Gm Packet PO 17 gm DAILY MICHAELA Administration Psyllium Hydrophilic Mucilloid 1 packet 06/21/22 08:53 06/22/22 15:47 Psyllium Packet PO 1 packet DAILY PRN Administration Constipation Saccharomyces Boulardii 250 mg 06/21/22 17:00 06/23/22 08:00 Saccharomyces Boulardii 250 Mg Capsule PO 250 mg BIDWM MICHAELA Administration Senna 8.6 - 17.2 mg 06/20/22 09:00 06/23/22 10:47 Senna 8.6 Mg Tablet PO 17.2 mg DAILY MICHAELA Administration - Lab Result Fish Bone Diagrams: 06/22/22 04:40 06/22/22 04:40 - Additional Planning My Orders: My Active Orders 06/23/22 09:00 Docusate Sodium 250Mg Capsule [Colace 250Mg Capsule] 250 - 500 mg PO DAILY 06/23/22 09:56 oxyCODONE ORAL SOLN [Roxicodone Oral Soln] 5 mg PO Q4HR PRN Subjective - Subjective Patient Reports: Resting Comfortably, Fatigue Objective Vital Signs: Vital Signs - 24 hr 06/22/22 06/23/22 15:36 07:19 Temperature 36.9 C 36.6 C Heart Rate [ 64 60 Brachial] Respiratory 17 18 Rate Blood Pressure 107/48 L 102/48 L [Right Brachial artery] O2 Saturation 95 96 Oxygen O2 Source Room air I&O (Last 24 Hrs): Intake and Output Totals x24h 06/21/22 06/22/22 06/23/22 23:59 23:59 23:59 Intake Total 760 1360 740 Output Total 675 675 250 Balance 85 685 490 General: Other (asleep) HEENT: Mucous membr. moist/pink Neck: Supple Neuro: Alert, Non Focal Cardiovascular: Regular rate Respiratory: No respiratory distress Abdomen: No tenderness Extremities: No edema - Results Results: Laboratory Results WBC 9.1 x10^3/uL (4.8-10.8) 06/22/22 04:40 RBC 3.28 10^6/uL (4.70-6.10) L 06/22/22 04:40 Hgb 8.4 g/dL (14.0-18.0) L 06/22/22 04:40 Hct 27.6 % (42.0-52.0) L 06/22/22 04:40 MCV 84.1 fL (80.0-94.0) 06/22/22 04:40 MCH 25.6 pg (27.0-31.0) L 06/22/22 04:40 MCHC 30.4 g/dL (32.0-36.0) L 06/22/22 04:40 RDW 15.9 % (12.0-15.0) H 06/22/22 04:40 Plt Count 560 10^3/uL (130-450) H 06/22/22 04:40 MPV 8.6 fL (7.4-11.4) 06/22/22 04:40 Neut # (Auto) 5.6 10^3/uL (1.5-6.6) 06/22/22 04:40 Lymph # (Auto) 1.6 10^3/uL (1.5-3.5) 06/22/22 04:40 [place] # (Auto) 1.3 10^3/uL (0.0-1.0) H 06/22/22 04:40 Eos # (Auto) 0.1 10^3/uL (0.0-0.7) 06/22/22 04:40 Baso # (Auto) 0.1 10^3/uL (0.0-0.1) 06/22/22 04:40 Absolute Nucleated RBC 0.00 x10^3/uL 06/22/22 04:40 Nucleated RBC % 0.0 /100WBC 06/22/22 04:40 PT 13.8 secs (9.9-12.6) H 05/30/22 04:50 INR 1.3 (0.8-1.2) H 05/30/22 04:50 Sodium 134 mmol/L (135-145) L 06/22/22 04:40 Potassium 4.1 mmol/L (3.5-5.0) 06/22/22 04:40 Chloride 98 mmol/L (101-111) L 06/22/22 04:40 Carbon Dioxide 28 mmol/L (21-32) 06/22/22 04:40 Anion Gap 8.0 (6-13) 06/22/22 04:40 BUN 22 mg/dL (6-20) H 06/22/22 04:40 Creatinine 0.7 mg/dL (0.6-1.2) 06/22/22 04:40 Estimated GFR (MDRD) 108 (>89) 06/22/22 04:40 Glucose 101 mg/dL (70-100) H 06/22/22 04:40 Calcium 8.5 mg/dL (8.5-10.3) 06/22/22 04:40 Phosphorus 1.1 mg/dL (2.5-4.6) L 05/30/22 04:50 Magnesium 2.1 mg/dL (1.7-2.8) 06/07/22 05:01 Total Bilirubin 0.8 mg/dL (0.2-1.0) 05/29/22 06:20 AST 20 IU/L (10-42) 05/29/22 06:20 ALT 17 IU/L (10-60) 05/29/22 06:20 Alkaline Phosphatase 58 IU/L (42-121) 05/29/22 06:20 Total Creatine Kinase 87 IU/L (22-269) 05/28/22 11:50 Total Protein 6.4 g/dL (6.7-8.2) L 05/29/22 06:20 Albumin 2.5 g/dL (3.2-5.5) L 05/29/22 06:20 Globulin 3.9 g/dL (2.1-4.2) 05/29/22 06:20 Albumin/Globulin Ratio 0.6 (1.0-2.2) L 05/29/22 06:20 Lipase 35 U/L (22-51) 05/29/22 06:20 TSH 2.68 uIU/mL (0.34-5.60) 05/30/22 04:50 Urine Color DARK YELLOW 05/28/22 12:07 Urine Clarity CLEAR (CLEAR) 05/28/22 12:07 Urine pH 6.0 PH (5.0-7.5) 05/28/22 12:07 Ur Specific [place] 1.025 (1.002-1.030) 05/28/22 12:07 Urine Protein 30 mg/dL (NEGATIVE) H 05/28/22 12:07 Urine Glucose (UA) NEGATIVE mg/dL (NEGATIVE) 05/28/22 12:07 Urine Ketones 15 mg/dL (NEGATIVE) H 05/28/22 12:07 Urine Occult Blood LARGE (NEGATIVE) H 05/28/22 12:07 Urine Nitrite NEGATIVE (NEGATIVE) 05/28/22 12:07 Urine Bilirubin NEGATIVE (NEGATIVE) 05/28/22 12:07 Urine Urobilinogen 1 (NORMAL) E.U./dL (NORMAL) 05/28/22 12:07 Ur Leukocyte Esterase NEGATIVE (NEGATIVE) 05/28/22 12:07 Urine RBC TNTC /HPF (0-5) H 05/28/22 12:07 Urine WBC 6-10 /HPF (0-3) H 05/28/22 12:07 Ur Epithelial Cells MOD Transitional /HPF (<= Few) H 05/28/22 12:07 Ur Squamous Epith Cells FEW Squamous (<= Few) 05/28/22 12:07 Urine Bacteria Few /HPF (None Seen) 05/28/22 12:07 Urine Casts 6-10 Hyaline Casts /LPF 05/28/22 12:07 Ur Microscopic Review INDICATED 05/28/22 12:07 Urine Culture Comments NOT INDICATED 05/28/22 12:07 Coronavirus (PCR) NEGATIVE 05/29/22 14:20 - Procedures Procedures: Procedures ENDO RECTUM POLYPECTOMY (04/27/15) ENDOSC POLYPECTOMY OF LG INTEST (04/27/15) EXCISION OF ASCENDING COLON, ENDO, DIAGN (05/02/17) EXCISION OF DESCENDING COLON, ENDO, DIAGN (05/02/17) EXCISION OF LEFT LOWER LEG SKIN, EXTERNAL APPROACH, DIAGN (11/16/20) EXCISION OF TRANSVERSE COLON, ENDO, DIAGN (05/02/17)
[2022-06-23] MEDS: ZINC OXIDE 20% OINT 30 GM TUBE TOP PRN (16:38)
--- NOTE | 2022-06-24 11:52 | PROVIDER PROGRESS NOTE ---
Assessment/Plan - Problem List (1) Metastatic lung cancer (metastasis from lung to other site) Qualifiers: Qualified Code(s): C34.90 - Malignant neoplasm of unspecified part of unspecified bronchus or lung Assessment/Plan: He has a lung neoplasm in the right lower lung. This tumor is eroding into his R rib cage (and you can actually put your finger on the outside of his chest wall to feel it). He has had a profound decrease in functional status, has cachexia, and had near immobility when he came into the hospital. He has improved in that he is now eating, gained a little weight, and is able to get up and move around the room a bit, and worked with PT and OT and met the goals. He lived alone and therefore he can no longer be safely discharged to there. He was started on scheduled oral morphine tid, which made him very sleepy. I decreased the dose to bid on . Also, Oxycodone is available prn. Because of worsening fatigue and somnolence, today I will decrease the dose of oral morphine, but keep it twice daily (2) Fatigue For the last 3 days, he has not even wanted to get out of bed for meals, says he is too tired. This is despite lowering his dose of narcotics from tid scheduled to twice daily scheduled. Presumably this could be a sign of him starting to succumb to his metastatic cancer. Because of worsening fatigue and somnolence, today I will decrease the dose of oral morphine, but keep it twice daily. (3) Severe protein calorie malnutrition He has severe protein calorie malnutrition, but overall we think he will succumb to his neoplasm. We checked routine labs on 06/22, since none had been done for over a week, and they were all stable. (4) Cognitive impairment He has cognitive impairment that renders him unable to make his own decisions. He lived alone and therefore can no longer be safely discharged to there. We are awaiting an emergency guardianship to be established to make [facility] location plans, going forward for this gentleman. He would like to be in Hospice. The previous Hospitalist did speak to an district attorney on 06/13/22, who is pursuing this whole process with the hospital. SW has said that his grand-nephew recently said he would be available to be guardian. - Current Meds Current Meds: Current Medications Generic Name Dose Route Start Last Admin Trade Name Freq PRN Reason Stop Dose Admin Acetaminophen 650 mg 05/29/22 14:15 06/02/22 17:16 Acetaminophen 325 Mg Tablet PO 650 mg Q4HR PRN Administration Pain 1 to 4, or Fever Docusate Sodium 250 - 500 mg 06/23/22 09:00 06/23/22 10:40 Docusate Sodium 250 Mg Capsule PO 250 mg DAILY MICHAELA Administration Enoxaparin Sodium 40 mg 05/30/22 09:00 06/23/22 10:41 Enoxaparin 40 Mg/0.4 Ml Syringe SUBQ 40 mg DAILY MICHAELA Administration Multi-Ingredient Ointment 1 applic 05/30/22 22:39 06/23/22 16:38 Zinc Oxide 20% Oint 30 Gm Tube TOP 1 applic PRN PRN Administration Skin Care Multivitamins/Minerals 1 tab 05/30/22 11:00 06/23/22 08:00 Multivitamin W/Minerals Tablet PO 1 tab DAILYWM MICHAELA Administration Polyethylene Glycol 17 gm 05/30/22 09:00 06/23/22 12:04 Polyethylene Glycol 3350 17 Gm Packet PO 17 gm DAILY MICHAELA Administration Psyllium Hydrophilic Mucilloid 1 packet 06/21/22 08:53 06/22/22 15:47 Psyllium Packet PO 1 packet DAILY PRN Administration Constipation Saccharomyces Boulardii 250 mg 06/21/22 17:00 06/23/22 16:37 Saccharomyces Boulardii 250 Mg Capsule PO 250 mg BIDWM MICHAELA Administration Senna 8.6 - 17.2 mg 06/20/22 09:00 06/23/22 10:47 Senna 8.6 Mg Tablet PO 17.2 mg DAILY MICHAELA Administration - Lab Result Fish Bone Diagrams: 06/22/22 04:40 06/22/22 04:40 - Additional Planning My Orders: My Active Orders 06/24/22 10:30 Morphine Ir [Ms Ir] 3.75 mg PO BID Subjective - Subjective Patient Reports: Resting Comfortably, No Complaints Nursing Reports: Other (RN reports his appetite is poor again, he is more fatigued for the last 3 days, he is refusing to get out of bed for meals, as ordered.) Objective Vital Signs: Vital Signs - 24 hr 06/23/22 06/24/22 16:07 07:37 Temperature 36.4 C L 36.5 C Heart Rate [ 60 60 Brachial] Respiratory 22 16 Rate Blood Pressure 107/48 L 106/45 L [Right Brachial artery] O2 Saturation 95 97 Oxygen O2 Source Room air I&O (Last 24 Hrs): Intake and Output Totals x24h 06/22/22 06/23/22 06/24/22 23:59 23:59 23:59 Intake Total 1360 1220 Output Total 675 675 250 Balance 685 545 -250 General: Alert, Oriented x3, Other (Cachectic) HEENT: Mucous membr. moist/pink Neck: Supple, No JVD Neuro: Alert, Non Focal Cardiovascular: Regular rate, No murmurs Respiratory: No respiratory distress, Breath sounds nml Abdomen: Normal bowel sounds, Soft Extremities: No clubbing, No edema, Other (Has skin tenting of extremities) - Results Results: Laboratory Results WBC 9.1 x10^3/uL (4.8-10.8) 06/22/22 04:40 RBC 3.28 10^6/uL (4.70-6.10) L 06/22/22 04:40 Hgb 8.4 g/dL (14.0-18.0) L 06/22/22 04:40 Hct 27.6 % (42.0-52.0) L 06/22/22 04:40 MCV 84.1 fL (80.0-94.0) 06/22/22 04:40 MCH 25.6 pg (27.0-31.0) L 06/22/22 04:40 MCHC 30.4 g/dL (32.0-36.0) L 06/22/22 04:40 RDW 15.9 % (12.0-15.0) H 06/22/22 04:40 Plt Count 560 10^3/uL (130-450) H 06/22/22 04:40 MPV 8.6 fL (7.4-11.4) 06/22/22 04:40 Neut # (Auto) 5.6 10^3/uL (1.5-6.6) 06/22/22 04:40 Lymph # (Auto) 1.6 10^3/uL (1.5-3.5) 06/22/22 04:40 [place] # (Auto) 1.3 10^3/uL (0.0-1.0) H 06/22/22 04:40 Eos # (Auto) 0.1 10^3/uL (0.0-0.7) 06/22/22 04:40 Baso # (Auto) 0.1 10^3/uL (0.0-0.1) 06/22/22 04:40 Absolute Nucleated RBC 0.00 x10^3/uL 06/22/22 04:40 Nucleated RBC % 0.0 /100WBC 06/22/22 04:40 PT 13.8 secs (9.9-12.6) H 05/30/22 04:50 INR 1.3 (0.8-1.2) H 05/30/22 04:50 Sodium 134 mmol/L (135-145) L 06/22/22 04:40 Potassium 4.1 mmol/L (3.5-5.0) 06/22/22 04:40 Chloride 98 mmol/L (101-111) L 06/22/22 04:40 Carbon Dioxide 28 mmol/L (21-32) 06/22/22 04:40 Anion Gap 8.0 (6-13) 06/22/22 04:40 BUN 22 mg/dL (6-20) H 06/22/22 04:40 Creatinine 0.7 mg/dL (0.6-1.2) 06/22/22 04:40 Estimated GFR (MDRD) 108 (>89) 06/22/22 04:40 Glucose 101 mg/dL (70-100) H 06/22/22 04:40 Calcium 8.5 mg/dL (8.5-10.3) 06/22/22 04:40 Phosphorus 1.1 mg/dL (2.5-4.6) L 05/30/22 04:50 Magnesium 2.1 mg/dL (1.7-2.8) 06/07/22 05:01 Total Bilirubin 0.8 mg/dL (0.2-1.0) 05/29/22 06:20 AST 20 IU/L (10-42) 05/29/22 06:20 ALT 17 IU/L (10-60) 05/29/22 06:20 Alkaline Phosphatase 58 IU/L (42-121) 05/29/22 06:20 Total Creatine Kinase 87 IU/L (22-269) 05/28/22 11:50 Total Protein 6.4 g/dL (6.7-8.2) L 05/29/22 06:20 Albumin 2.5 g/dL (3.2-5.5) L 05/29/22 06:20 Globulin 3.9 g/dL (2.1-4.2) 05/29/22 06:20 Albumin/Globulin Ratio 0.6 (1.0-2.2) L 05/29/22 06:20 Lipase 35 U/L (22-51) 05/29/22 06:20 TSH 2.68 uIU/mL (0.34-5.60) 05/30/22 04:50 Urine Color DARK YELLOW 05/28/22 12:07 Urine Clarity CLEAR (CLEAR) 05/28/22 12:07 Urine pH 6.0 PH (5.0-7.5) 05/28/22 12:07 Ur Specific [place] 1.025 (1.002-1.030) 05/28/22 12:07 Urine Protein 30 mg/dL (NEGATIVE) H 05/28/22 12:07 Urine Glucose (UA) NEGATIVE mg/dL (NEGATIVE) 05/28/22 12:07 Urine Ketones 15 mg/dL (NEGATIVE) H 05/28/22 12:07 Urine Occult Blood LARGE (NEGATIVE) H 05/28/22 12:07 Urine Nitrite NEGATIVE (NEGATIVE) 05/28/22 12:07 Urine Bilirubin NEGATIVE (NEGATIVE) 05/28/22 12:07 Urine Urobilinogen 1 (NORMAL) E.U./dL (NORMAL) 05/28/22 12:07 Ur Leukocyte Esterase NEGATIVE (NEGATIVE) 05/28/22 12:07 Urine RBC TNTC /HPF (0-5) H 05/28/22 12:07 Urine WBC 6-10 /HPF (0-3) H 05/28/22 12:07 Ur Epithelial Cells MOD Transitional /HPF (<= Few) H 05/28/22 12:07 Ur Squamous Epith Cells FEW Squamous (<= Few) 05/28/22 12:07 Urine Bacteria Few /HPF (None Seen) 05/28/22 12:07 Urine Casts 6-10 Hyaline Casts /LPF 05/28/22 12:07 Ur Microscopic Review INDICATED 05/28/22 12:07 Urine Culture Comments NOT INDICATED 05/28/22 12:07 Coronavirus (PCR) NEGATIVE 05/29/22 14:20 - Procedures Procedures: Procedures ENDO RECTUM POLYPECTOMY (04/27/15) ENDOSC POLYPECTOMY OF LG INTEST (04/27/15) EXCISION OF ASCENDING COLON, ENDO, DIAGN (05/02/17) EXCISION OF DESCENDING COLON, ENDO, DIAGN (05/02/17) EXCISION OF LEFT LOWER LEG SKIN, EXTERNAL APPROACH, DIAGN (11/16/20) EXCISION OF TRANSVERSE COLON, ENDO, DIAGN (05/02/17)
[2022-06-24] MEDS: MORPHINE IR 15 MG TABLET PO SCH ×2 (12:38→21:51)
[2022-06-24] MEDS: SACCHAROMYCES BOULARDII 250 MG CAPSULE PO SCH ×2 (12:39→16:16)
[2022-06-24] MEDS: polyethylene glycoL 3350 17 GM PACKET PO SCH (12:39)
[2022-06-24] MEDS: DOCUSATE SODIUM 250 MG CAPSULE PO SCH (12:39)
[2022-06-24] MEDS: SENNA 8.6 MG TABLET PO SCH (12:39)
[2022-06-24] MEDS: ENOXAPARIN 40 MG/0.4 ML SYRINGE SUBQ SCH (12:39)
[2022-06-24] MEDS: MULTIVITAMIN W/MINERALS TABLET PO SCH (12:39)
[2022-06-24] MEDS: oxyCODONE 10 MG/0.5 ML SYRINGE PO PRN (16:45)
[2022-06-25] MEDS: MULTIVITAMIN W/MINERALS TABLET PO SCH (09:27)
[2022-06-25] MEDS: DOCUSATE SODIUM 250 MG CAPSULE PO SCH (09:27)
[2022-06-25] MEDS: SACCHAROMYCES BOULARDII 250 MG CAPSULE PO SCH ×2 (09:27→17:31)
[2022-06-25] MEDS: MORPHINE IR 15 MG TABLET PO SCH ×2 (09:27→20:49)
[2022-06-25] MEDS: polyethylene glycoL 3350 17 GM PACKET PO SCH (09:28)
[2022-06-25] MEDS: SENNA 8.6 MG TABLET PO SCH (09:28)
[2022-06-25] MEDS: ENOXAPARIN 40 MG/0.4 ML SYRINGE SUBQ SCH (09:28)
--- NOTE | 2022-06-25 15:19 | PROVIDER PROGRESS NOTE ---
Subjective - Prog Note Date Prog Note Date: 06/25/22 Prog Note Time: 15:19 - Subjective Pt reports feeling: No change Subjective: Eating anywhere from 25% to 95% of his food. Current Medications - Current Medications Current Medications: Active Medications Acetaminophen (Acetaminophen 325 Mg Tablet) 650 mg PO Q4HR PRN PRN Reason: Pain 1 to 4, or Fever Last Admin: 06/02/22 17:16 Dose: 650 mg Docusate Sodium (Docusate Sodium 250 Mg Capsule) 250 - 500 mg PO DAILY [facility] Last Admin: 06/25/22 09:27 Dose: 250 mg Enoxaparin Sodium (Enoxaparin 40 Mg/0.4 Ml Syringe) 40 mg SUBQ DAILY [facility] Last Admin: 06/25/22 09:28 Dose: 40 mg Morphine Sulfate (Morphine Ir 15 Mg Tablet) 3.75 mg PO BID [facility] Last Admin: 06/25/22 09:27 Dose: 3.75 mg Multi-Ingredient Ointment (Zinc Oxide 20% Oint 30 Gm Tube) 1 applic TOP PRN PRN PRN Reason: Skin Care Last Admin: 06/23/22 16:38 Dose: 1 applic Multivitamins/Minerals (Multivitamin W/Minerals Tablet) 1 tab PO DAILYWM [facility] Last Admin: 06/25/22 09:27 Dose: 1 tab Ondansetron HCl (Ondansetron Odt 4 Mg Tablet) 4 mg TL Q6HR PRN PRN Reason: Nausea / Vomiting Oxycodone HCl (Oxycodone 10 Mg/0.5 Ml Syringe) 5 mg PO Q4HR PRN PRN Reason: PAIN Last Admin: 06/24/22 16:45 Dose: 5 mg Polyethylene Glycol (Polyethylene Glycol 3350 17 Gm Packet) 17 gm PO DAILY [facility] Last Admin: 06/25/22 09:28 Dose: 17 gm Psyllium Hydrophilic Mucilloid (Psyllium Packet) 1 packet PO DAILY PRN PRN Reason: Constipation Last Admin: 06/22/22 15:47 Dose: 1 packet Saccharomyces Boulardii (Saccharomyces Boulardii 250 Mg Capsule) 250 mg PO BIDWM [facility] Last Admin: 06/25/22 09:27 Dose: 250 mg Senna (Senna 8.6 Mg Tablet) 8.6 - 17.2 mg PO DAILY [facility] Last Admin: 10/11/22 09:28 Dose: 17.2 mg No Known Home Medications 05/30/22 Objective - Vital Signs/Intake & Output Reviewed Vital Signs: Yes Intake & Output: Intake & Output 06/22/22 06/23/22 06/24/22 06/25/22 23:59 23:59 23:59 23:59 Intake Total 1360 1220 1040 815 Output Total 675 675 750 550 Balance 685 545 290 265 - Objective General Appearance: positive: Alert, Other (quiet, no acute distress, sitting up in bed, no motivation to sit in chair.) Eyes Bilateral: positive: PERRL, EOMI ENT: positive: No signs of dehydration Neck: positive: No JVD. negative: Stiff neck Respiratory: positive: No respiratory distress. 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 This tumor is eroding into his R rib cage (and you can actually put your finger on the outside of his chest wall to feel it). He has had a profound decrease in functional status, has cachexia, and had near immobility when he came into the hospital. He has improved in that he is now eating, gained a little weight, and is able to get up and move around the room a bit, and worked with PT and OT and met the goals. He lived alone and therefore he can no longer be safely discharged to there. He was started on scheduled oral morphine tid, which made him very sleepy. I decreased the dose to bid on . Also, Oxycodone is available prn. Because of worsening fatigue and somnolence, today I will decrease the dose of oral morphine, but keep it twice daily (2) Fatigue For the last 4 days, he has not even wanted to get out of bed for meals, says he is too tired. This is despite lowering his dose of narcotics from tid scheduled to twice daily scheduled. Presumably this could be a sign of him starting to succumb to his metastatic cancer. Because of worsening fatigue and somnolence, today previous service decreased t he dose of oral morphine, but keep it twice daily. (3) Severe protein calorie malnutrition He has severe protein calorie malnutrition, but overall we think he will succumb to his neoplasm. We checked routine labs on 06/22, since none had been done for over a week, and they were all stable. (4) Cognitive impairment He has cognitive impairment that renders him unable to make his own decisions. He lived alone and therefore can no longer be safely discharged to there. We are awaiting an emergency guardianship to be established to make [facility] location plans, going forward for this gentleman. He would like to be in Hospice. This Hospitalist did speak to an mergers and acquisitions attorney on 06/13/22, who is pursuing this whole process with the hospital. SW has said that his grand-nephew recently said he would be available to be guardian. This hospitalist spoke to the same mergers and acquisitions attorney today and emergency guardianship with "grandson" by name (not legal) Miquel will be the POA and DPOA.
[2022-06-26] MEDS: ENOXAPARIN 40 MG/0.4 ML SYRINGE SUBQ SCH (08:24)
[2022-06-26] MEDS: SACCHAROMYCES BOULARDII 250 MG CAPSULE PO SCH ×2 (08:24→17:57)
[2022-06-26] MEDS: MORPHINE IR 15 MG TABLET PO SCH ×2 (08:24→22:05)
[2022-06-26] MEDS: SENNA 8.6 MG TABLET PO SCH (08:25)
[2022-06-26] MEDS: DOCUSATE SODIUM 250 MG CAPSULE PO SCH (08:25)
[2022-06-26] MEDS: MULTIVITAMIN W/MINERALS TABLET PO SCH (08:25)
[2022-06-26] MEDS: polyethylene glycoL 3350 17 GM PACKET PO SCH (08:27)
--- NOTE | 2022-06-26 14:05 | PROVIDER PROGRESS NOTE ---
Subjective - Prog Note Date Prog Note Date: 06/26/22 Prog Note Time: 14:04 - Subjective Subjective: No change. Nursing reports that he just been sleepy this week. Even with the reduced opiate dose. Current Medications - Current Medications Current Medications: Active Medications Acetaminophen (Acetaminophen 325 Mg Tablet) 650 mg PO Q4HR PRN PRN Reason: Pain 1 to 4, or Fever Last Admin: 06/02/22 17:16 Dose: 650 mg Docusate Sodium (Docusate Sodium 250 Mg Capsule) 250 - 500 mg PO DAILY [facility] Last Admin: 06/26/22 08:25 Dose: 500 mg Enoxaparin Sodium (Enoxaparin 40 Mg/0.4 Ml Syringe) 40 mg SUBQ DAILY [facility] Last Admin: 06/26/22 08:24 Dose: 40 mg Morphine Sulfate (Morphine Ir 15 Mg Tablet) 3.75 mg PO BID [facility] Last Admin: 06/26/22 08:24 Dose: 3.75 mg Multi-Ingredient Ointment (Zinc Oxide 20% Oint 30 Gm Tube) 1 applic TOP PRN PRN PRN Reason: Skin Care Last Admin: 06/23/22 16:38 Dose: 1 applic Multivitamins/Minerals (Multivitamin W/Minerals Tablet) 1 tab PO DAILYWM [facility] Last Admin: 06/26/22 08:25 Dose: 1 tab Ondansetron HCl (Ondansetron Odt 4 Mg Tablet) 4 mg TL Q6HR PRN PRN Reason: Nausea / Vomiting Oxycodone HCl (Oxycodone 10 Mg/0.5 Ml Syringe) 5 mg PO Q4HR PRN PRN Reason: PAIN Last Admin: 06/24/22 16:45 Dose: 5 mg Polyethylene Glycol (Polyethylene Glycol 3350 17 Gm Packet) 17 gm PO DAILY [facility] Last Admin: 06/26/22 08:27 Dose: 17 gm Psyllium Hydrophilic Mucilloid (Psyllium Packet) 1 packet PO DAILY PRN PRN Reason: Constipation Last Admin: 06/22/22 15:47 Dose: 1 packet Saccharomyces Boulardii (Saccharomyces Boulardii 250 Mg Capsule) 250 mg PO BIDWM [facility] Last Admin: 06/26/22 08:24 Dose: 250 mg Senna (Senna 8.6 Mg Tablet) 8.6 - 17.2 mg PO DAILY [facility] Last Admin: 06/26/22 08:25 Dose: 17.2 mg No Known Home Medications 05/30/22 Objective - Vital Signs/Intake & Output Reviewed Vital Signs: Yes Vital Signs: Vital Signs x48h Temp Pulse Resp BP Pulse Ox 06/26/22 07:16 36.5 C 61 16 108/40 L 96 Intake & Output: Intake & Output 06/23/22 06/24/22 06/25/22 06/26/22 23:59 23:59 23:59 23:59 Intake Total 1220 1040 1305 580 Output Total 675 750 750 295 Balance 545 290 555 285 - Objective General Appearance: positive: Other (Pleasant, sleepy elderly gentleman. Wakes to my voice and touch. Appropriate conversation. Disoriented.) Eyes Bilateral: positive: PERRL, EOMI Neck: positive: No JVD. negative: Stiff neck Respiratory: positive: No respiratory distress. 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 This tumor is eroding into his R rib cage (and you can actually put your finger on the outside of his chest wall to feel it). He has had a profound decrease in functional status, has cachexia, and had near immobility when he came into the hospital. He has improved in that he is now eating, gained a little weight, and is able to get up and move around the room a bit, and worked with PT and OT and met the goals. He lived alone and therefore he can no longer be safely discharged to there. He was started on scheduled oral morphine tid, which made him very sleepy. I decreased the dose to bid on . Also, Oxycodone is available prn. Because of worsening fatigue and somnolence, today I will decrease the dose of oral morphine, but keep it twice daily (2) Fatigue For the last 4 days, he has not even wanted to get out of bed for meals, says he is too tired. This is despite lowering his dose of narcotics from tid scheduled to twice daily scheduled. Presumably this could be a sign of him starting to succumb to his metastatic cancer. Because of worsening fatigue and somnolence, today previous service decreased the dose of oral morphine, but keep it twice daily. (3) Severe protein calorie malnutrition He has severe protein calorie malnutrition, but overall we think he will succumb to his neoplasm. We checked routine labs on 06/22, since none had been done for over a week, and t hey were all stable. (4) Cognitive impairment He has cognitive impairment that renders him unable to make his own decisions. He lived alone and therefore can no longer be safely discharged to there. We are awaiting an emergency guardianship to be established to make [facility] location plans, going forward for this gentleman. He would like to be in Hospice. This Hospitalist did speak to an collar stay fuser tender on 06/13/22, who is pursuing this whole process with the hospital. SW has said that his grand-nephew recently said he would be available to be guardian. This hospitalist spoke to the same collar stay fuser tender today and emergency guardianship with "grandson" by name (not legal) Miquel will be the POA and DPOA.
--- NOTE | 2022-06-27 07:23 | PROVIDER PROGRESS NOTE ---
Subjective - Prog Note Date Prog Note Date: 06/27/22 Prog Note Time: 07:21 - Subjective Subjective: no changes. sleepier for 2 weeks and we have reduced his pain meds without much change. He is still eating. wakes to speak to me. Mariely man, He does that he is in a care institution. He knows that he has some type of cancer and he still tells me he does not want treatment. But he cannot tell me that it is [place] and he cannot tell me the date. Current Medications - Current Medications Current Medications: Active Medications Acetaminophen (Acetaminophen 325 Mg Tablet) 650 mg PO Q4HR PRN PRN Reason: Pain 1 to 4, or Fever Last Admin: 06/02/22 17:16 Dose: 650 mg Docusate Sodium (Docusate Sodium 250 Mg Capsule) 250 - 500 mg PO DAILY [facility] Last Admin: 06/26/22 08:25 Dose: 500 mg Enoxaparin Sodium (Enoxaparin 40 Mg/0.4 Ml Syringe) 40 mg SUBQ DAILY [facility] Last Admin: 06/26/22 08:24 Dose: 40 mg Morphine Sulfate (Morphine Ir 15 Mg Tablet) 3.75 mg PO BID [facility] Last Admin: 06/26/22 22:05 Dose: 3.75 mg Multi-Ingredient Ointment (Zinc Oxide 20% Oint 30 Gm Tube) 1 applic TOP PRN PRN PRN Reason: Skin Care Last Admin: 06/23/22 16:38 Dose: 1 applic Multivitamins/Minerals (Multivitamin W/Minerals Tablet) 1 tab PO DAILYWM [facility] Last Admin: 06/26/22 08:25 Dose: 1 tab Ondansetron HCl (Ondansetron Odt 4 Mg Tablet) 4 mg TL Q6HR PRN PRN Reason: Nausea / Vomiting Oxycodone HCl (Oxycodone 10 Mg/0.5 Ml Syringe) 5 mg PO Q4HR PRN PRN Reason: PAIN Last Admin: 06/24/22 16:45 Dose: 5 mg Polyethylene Glycol (Polyethylene Glycol 3350 17 Gm Packet) 17 gm PO DAILY [facility] Last Admin: 06/26/22 08:27 Dose: 17 gm Psyllium Hydrophilic Mucilloid (Psyllium Packet) 1 packet PO DAILY PRN PRN Reason: Constipation Last Admin: 06/22/22 15:47 Dose: 1 packet Saccharomyces Boulardii (Saccharomyces Boulardii 250 Mg Capsule) 250 mg PO BI [facility] Last Admin: 06/26/22 17:57 Dose: 250 mg Senna (Senna 8.6 Mg Tablet) 8.6 - 17.2 mg PO DAILY [facility] Last Admin: 06/26/22 08:25 Dose: 17.2 mg No Known Home Medications 05/30/22 Objective - Vital Signs/Intake & Output Reviewed Vital Signs: Yes Vital Signs: Vital Signs x48h Temp Pulse Resp BP Pulse Ox 06/27/22 07:17 36.5 C 61 18 102/47 L 96 Intake & Output: Intake & Output 06/24/22 06/25/22 06/26/22 06/27/22 23:59 23:59 23:59 23:59 Intake Total 1040 1305 900 Output Total 750 750 545 250 Balance 290 555 355 -250 - Objective General Appearance: positive: Other (Elderly gentleman, sleeping, wakes to my voice. Sits up with my help. Cooperative.) Eyes Bilateral: positive: PERRL, EOMI ENT: positive: No signs of dehydration Neck: positive: No JVD Respiratory: positive: No respiratory distress, Rhonchi (New for him. Right middle lobe. Clears after deep cough. 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 This tumor is eroding into his R rib cage (and you can actually put your finger on the outside of his chest wall to feel it). He has had a profound decrease in functional status, has cachexia, and had near immobility when he came into the hospital. He has improved in that he is now eating, gained a little weight, and is able to get up and move around the room a bit, and worked with PT and OT and met the goals. He lived alone and therefore he can no longer be safely discharged to there. He was started on scheduled oral morphine tid, which made him very sleepy. I decreased the dose to bid on . Also, Oxycodone is available prn. Because of worsening fatigue and somnolence, today I will decrease the dose of oral morphine, but keep it twice daily He continues to tell us that he is happy with the way things are. He will be kept here until we can find appropriate placement for him. (2) Fatigue For the last 4 days, he has not even wanted to get out of bed for meals, says he is too tired. This is despite lowering his dose of narcotics from tid scheduled to twice daily scheduled. Presumably this could be a sign of him starting to succumb to his metastatic cancer. Because of worsening fatigue and somnolence, today previous service decreased the dose of oral morphine, but keep it twice daily. (3) Severe protein calorie malnutrition He has severe protein calorie malnutrition, but overall we think he will succumb to his neoplasm. We checked routine labs on 06/22, since none had been done for over a week, and they were all stable. (4) Cognitive impairment He has cognitive impairment that renders him unable to make his own decisions. He lived alone and therefore can no longer be safely discharged to there. We are awaiting an emergency guardianship to be established to make [facility] location plans, going forward for this gentleman. He would like to be in Hospice. This Hospitalist did speak to an chief psychologist on 06/13/22, who is pursuing this whole process with the hospital. SW has said that his grand-nephew recently said he would be available to be guardian. This hospitalist spoke to the same chief psychologist 06/25 and emergency guardianship with "grandson" by name (not legal) Miquel was being considered for POA but that is on hold. New thought is court appointed guardian.
[2022-06-27] MEDS: MORPHINE IR 15 MG TABLET PO SCH ×2 (08:14→20:49)
[2022-06-27] MEDS: MULTIVITAMIN W/MINERALS TABLET PO SCH (08:15)
[2022-06-27] MEDS: ENOXAPARIN 40 MG/0.4 ML SYRINGE SUBQ SCH (08:15)
[2022-06-27] MEDS: DOCUSATE SODIUM 250 MG CAPSULE PO SCH (08:15)
[2022-06-27] MEDS: SENNA 8.6 MG TABLET PO SCH (08:15)
[2022-06-27] MEDS: polyethylene glycoL 3350 17 GM PACKET PO SCH (08:15)
[2022-06-27] MEDS: SACCHAROMYCES BOULARDII 250 MG CAPSULE PO SCH ×2 (08:15→17:17)
[2022-06-27] MEDS: ZINC OXIDE 20% OINT 30 GM TUBE TOP PRN (20:49)
--- NOTE | 2022-06-28 07:56 | PROVIDER PROGRESS NOTE ---
Subjective - Prog Note Date Prog Note Date: 06/28/22 Prog Note Time: 07:54 - Subjective Pt reports feeling: No change Subjective: asleep but wakens easily. sleeping more and more per nursing in spite of drop in morphine. when awake, appropriate, no slurred speech, breathing rate good. pain is controlled. Current Medications - Current Medications Current Medications: Active Medications Acetaminophen (Acetaminophen 325 Mg Tablet) 650 mg PO Q4HR PRN PRN Reason: Pain 1 to 4, or Fever Last Admin: 06/02/22 17:16 Dose: 650 mg Docusate Sodium (Docusate Sodium 250 Mg Capsule) 250 - 500 mg PO DAILY [facility] Last Admin: 06/27/22 08:15 Dose: 250 mg Enoxaparin Sodium (Enoxaparin 40 Mg/0.4 Ml Syringe) 40 mg SUBQ DAILY [facility] Last Admin: 06/27/22 08:15 Dose: 40 mg Morphine Sulfate (Morphine Ir 15 Mg Tablet) 3.75 mg PO BID [facility] Last Admin: 06/27/22 20:49 Dose: 3.75 mg Multi-Ingredient Ointment (Zinc Oxide 20% Oint 30 Gm Tube) 1 applic TOP PRN PRN PRN Reason: Skin Care Last Admin: 06/27/22 20:49 Dose: 1 applic Multivitamins/Minerals (Multivitamin W/Minerals Tablet) 1 tab PO DAILYWM [facility] Last Admin: 06/27/22 08:15 Dose: 1 tab Ondansetron HCl (Ondansetron Odt 4 Mg Tablet) 4 mg TL Q6HR PRN PRN Reason: Nausea / Vomiting Oxycodone HCl (Oxycodone 10 Mg/0.5 Ml Syringe) 5 mg PO Q4HR PRN PRN Reason: PAIN Last Admin: 06/24/22 16:45 Dose: 5 mg Polyethylene Glycol (Polyethylene Glycol 3350 17 Gm Packet) 17 gm PO DAILY [facility] Last Admin: 06/27/22 08:15 Dose: 17 gm Psyllium Hydrophilic Mucilloid (Psyllium Packet) 1 packet PO DAILY PRN PRN Reason: Constipation Last Admin: 06/22/22 15:47 Dose: 1 packet Saccharomyces Boulardii (Saccharomyces Boulardii 250 Mg Capsule) 250 mg PO BIDWM [facility] Last Admin: 06/27/22 17:17 Dose: 250 mg Senna (Senna 8.6 Mg Tablet) 8.6 - 17.2 mg PO DAILY [facility] Last Admin: 06/27/22 08:15 Dose: 8.6 mg No Known Home Medications 05/30/22 Objective - Vital Signs/Intake & Output Reviewed Vital Signs: Yes Vital Signs: Vital Signs x48h Temp Pulse Resp BP Pulse Ox 06/28/22 07:48 36.7 C 62 18 100/48 L 94 Intake & Output: Intake & Output 06/25/22 06/26/22 06/27/22 06/28/22 23:59 23:59 23:59 23:59 Intake Total 2752 240 8248 Output Total 750 545 475 250 Balance 555 355 685 -250 - Objective General Appearance: positive: No acute distress, Alert, Other (elderly male, comfortable) Eyes Bilateral: positive: PERRL, EOMI ENT: positive: No signs of dehydration Neck: positive: No JVD. negative: Stiff neck Respiratory: positive: No respiratory distress, Rhonchi. 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 This tumor is eroding into his R rib cage (and you can actually put your finger on the outside of his chest wall to feel it). He has had a profound decrease in functional status, has cachexia, and had near immobility when he came into the hospital. He has improved in that he is now eating, gained a little weight, and is able to get up and move around the room a bit, and worked with PT and OT and met the goals. He lived alone and therefore he can no longer be safely discharged to there. He was started on scheduled oral morphine tid, which made him very sleepy. Hospitalist decreased the dose to bid on 06/21/22. Also, Oxycodone is available prn. Because of worsening fatigue and somnolence, today I will decrease the dose of oral morphine, but keep it twice daily He continues to tell us that he is happy with the way things are. He will be kept here until we can find appropriate placement for him. Labs in am since it will be a week since last ones. (2) Fatigue For the last 4 days, he has not even wanted to get out of bed for meals, says he is too tired. This is despite lowering his dose of narcotics from tid scheduled to twice daily scheduled. Presumably this could be a sign of him starting to succumb to his metastatic cancer. Because of worsening fatigue and somnolence, today previous service decreased the dose of oral morphine, but keep it twice daily. (3) Severe protein calorie malnutrition He has severe protein calorie malnutrition, but overall we think he will succumb to his neoplasm. We checked routine labs on 06/22, since none had been done for over a week, and they were all stable. (4) Cognitive impairment He has cognitive impairment that renders him unable to make his own decisions. He lived alone and therefore can no longer be safely discharged to there. We are awaiting an emergency guardianship to be established to make [facility] location plans, going forward for this gentleman. He would like to be in Hospice. This Hospitalist did speak to an client success specialist on 06/13/22, who is pursuing this whole process with the hospital. SW has said that his grand-nephew recently said he would be available to be guardian. This hospitalist spoke to the same client success specialist 06/25 and emergency guardianship with "grandson" by name (not legal) Miquel was being considered for POA but that is on hold. New thought is court appointed guardian.
[2022-06-28] MEDS: MULTIVITAMIN W/MINERALS TABLET PO SCH (08:12)
[2022-06-28] MEDS: SACCHAROMYCES BOULARDII 250 MG CAPSULE PO SCH ×2 (08:12→16:54)
[2022-06-28] MEDS: DOCUSATE SODIUM 250 MG CAPSULE PO SCH (08:12)
[2022-06-28] MEDS: polyethylene glycoL 3350 17 GM PACKET PO SCH (08:12)
[2022-06-28] MEDS: ENOXAPARIN 40 MG/0.4 ML SYRINGE SUBQ SCH (08:12)
[2022-06-28] MEDS: SENNA 8.6 MG TABLET PO SCH (08:12)
[2022-06-28] MEDS: MORPHINE IR 15 MG TABLET PO SCH ×2 (08:39→20:46)
[2022-06-28] MEDS: oxyCODONE 10 MG/0.5 ML SYRINGE PO PRN (15:57)
[2022-06-29 05:36] LABS: BASOPHILS # (AUTO) 0.1 10^3/uL (0.0-0.1); BASOPHILS % (AUTO) 0.8 %; EOSINOPHILS # (AUTO) 0.1 10^3/uL (0.0-0.7); EOSINOPHILS % (AUTO) 1.3 %; HCT - HEMATOCRIT 28.6 % (42.0-52.0); HGB - HEMOGLOBIN 8.4 g/dL (14.0-18.0); LYMPHOCYTES # (AUTO) 1.4 10^3/uL (1.5-3.5); LYMPHOCYTES % (AUTO) 15.2 %; MEAN CORPUSCULAR HEMOGLOBIN 24.9 pg (27.0-31.0); MEAN CORPUSCULAR HGB CONC 29.4 g/dL (32.0-36.0); MEAN CORPUSCULAR VOLUME 84.9 fL (80.0-94.0); MEAN PLATELET VOLUME 8.9 fL (7.4-11.4); MONOCYTES # (AUTO) 1.2 10^3/uL (0.0-1.0); MONOCYTES % (AUTO) 13.2 %; NEUTROPHILS # (AUTO) 6.1 10^3/uL (1.5-6.6); NEUTROPHILS % (AUTO) 67.9 %; PLT - PLATELET COUNT 404 10^3/uL (130-450); RED BLOOD COUNT 3.37 10^6/uL (4.70-6.10)
[2022-06-29 05:56] LABS: CALCIUM 8.9 mg/dL (8.5-10.3); CREATININE 0.6 mg/dL (0.6-1.2); POTASSIUM 4.5 mmol/L (3.5-5.0)
[2022-06-29] MEDS: polyethylene glycoL 3350 17 GM PACKET PO SCH (08:09)
[2022-06-29] MEDS: DOCUSATE SODIUM 250 MG CAPSULE PO SCH (08:10)
[2022-06-29] MEDS: SACCHAROMYCES BOULARDII 250 MG CAPSULE PO SCH ×2 (08:10→17:05)
[2022-06-29] MEDS: MULTIVITAMIN W/MINERALS TABLET PO SCH (08:10)
[2022-06-29] MEDS: SENNA 8.6 MG TABLET PO SCH (08:10)
[2022-06-29] MEDS: ENOXAPARIN 40 MG/0.4 ML SYRINGE SUBQ SCH (08:10)
[2022-06-29] MEDS: MORPHINE IR 15 MG TABLET PO SCH ×2 (08:11→20:57)
[2022-06-29] MEDS: oxyCODONE 10 MG/0.5 ML SYRINGE PO PRN ×2 (12:27→17:05)
--- NOTE | 2022-06-29 17:15 | PROVIDER PROGRESS NOTE ---
Subjective - Prog Note Date Prog Note Date: 06/29/22 Prog Note Time: 17:37 - Subjective Subjective: Yesterday evening the patient was complaining of ear pain on the right ear. Nursing said that likely there is a scab there so she put water on it and tried to peel off the scab and it just hurt him more. He says that it does not hurt as much today as he did last night. .Pain was increasing he says that when he is able to take the morphine it works well but it does not last very long and it comes back Current Medications - Current Medications Current Medications: Active Medications Acetaminophen (Acetaminophen 325 Mg Tablet) 650 mg PO Q4HR PRN PRN Reason: Pain 1 to 4, or Fever Last Admin: 06/02/22 17:16 Dose: 650 mg Docusate Sodium (Docusate Sodium 250 Mg Capsule) 250 - 500 mg PO DAILY [facility] Last Admin: 06/29/22 08:10 Dose: 250 mg Enoxaparin Sodium (Enoxaparin 40 Mg/0.4 Ml Syringe) 40 mg SUBQ DAILY [facility] Last Admin: 06/29/22 08:10 Dose: 40 mg Morphine Sulfate (Morphine Ir 15 Mg Tablet) 7.5 mg PO BID [facility] Last Admin: 06/29/22 08:11 Dose: 7.5 mg Multi-Ingredient Ointment (Zinc Oxide 20% Oint 30 Gm Tube) 1 applic TOP PRN PRN PRN Reason: Skin Care Last Admin: 06/27/22 20:49 Dose: 1 applic Multivitamins/Minerals (Multivitamin W/Minerals Tablet) 1 tab PO DAILYWM [facility] Last Admin: 06/29/22 08:10 Dose: 1 tab Ondansetron HCl (Ondansetron Odt 4 Mg Tablet) 4 mg TL Q6HR PRN PRN Reason: Nausea / Vomiting Oxycodone HCl (Oxycodone 10 Mg/0.5 Ml Syringe) 5 mg PO Q4HR PRN PRN Reason: PAIN Last Admin: 06/29/22 17:05 Dose: 5 mg Polyethylene Glycol (Polyethylene Glycol 3350 17 Gm Packet) 17 gm PO DAILY [facility] Last Admin: 06/29/22 08:09 Dose: 17 gm Psyllium Hydrophilic Mucilloid (Psyllium Packet) 1 packet PO DAILY PRN PRN Reason: Constipation Last Admin: 06/22/22 15:47 Dose: 1 packet Saccharomyces Boulardii (Saccharomyces Boulardii 250 Mg Capsule) 250 mg PO BIDWM [facility] Last Admin: 06/29/22 17:05 Dose: 250 mg Senna (Senna 8.6 Mg Tablet) 8.6 - 17.2 mg PO DAILY [facility] Last Admin: 06/29/22 08:10 Dose: 17.2 mg No Known Home Medications 05/30/22 Objective - Vital Signs/Intake & Output Reviewed Vital Signs: Yes Vital Signs: Vital Signs x48h Temp Pulse Resp BP Pulse Ox 06/29/22 15:58 36.8 C 65 24 103/51 L 95 Intake & Output: Intake & Output 06/26/22 06/27/22 06/28/22 06/29/22 23:59 23:59 23:59 23:59 Intake Total 900 1160 850 840 Output Total 545 475 525 475 Balance 355 685 325 365 - Objective General Appearance: positive: No acute distress, Alert, Other (Over the last 3 days, since I have been on service, the patient appears to be getting weaker, and less interactive. We had decreased his pain meds because we thought we were over sedating him but I think he is succumbing to his cancer) ENT: positive: Other (Thick seborrheic keratosis waning the canthus of his ear.) Neck: positive: No JVD Respiratory: positive: No respiratory distress, Rhonchi (Right mid and lower lobe), Other (Pain in mid axillary line near the armpit is getting worse. You can feel the softness over the rib is being eroded) Cardiovascular: positive: Regular rate & rhythm Abdomen: positive: Non-tender, No organomegaly, Nml bowel sounds, No distention, Other (Eating 25 to 50% of his food. Sometimes only a few bites.) Skin: positive: Warm, Dry Extremities: positive: Full ROM, No pedal edema Neurologic/Psychiatric: positive: CN's nml (2-12), Motor nml (But severe generalized weakness with severe loss of muscle mass again), Disoriented to place, Disoriented to time - Lab Results Fish Bones: 06/29/22 05:04 06/29/22 05:04 Other Labs: Lab Results x24hrs 06/29/22 06/29/22 Range/Units 05:04 05:04 WBC 9.0 (4.8-10.8) x10^3/uL RBC 3.37 L (4.70-6.10) 10^6/uL Hgb 8.4 L (14.0-18.0) g/dL Hct 28.6 L (42.0-52.0) % MCV 84.9 (80.0-94.0) fL MCH 24.9 L (27.0-31.0) pg MCHC 29.4 L (32.0-36.0) g/dL RDW 16.0 H (12.0-15.0) % Plt Count 404 (130-450) 10^3/uL MPV 8.9 (7.4-11.4) fL Neut # (Auto) 6.1 (1.5-6.6) 10^3/uL Lymph # (Auto) 1.4 L (1.5-3.5) 10^3/uL [place] # (Auto) 1.2 H (0.0-1.0) 10^3/uL Eos # (Auto) 0.1 (0.0-0.7) 10^3/uL Baso # (Auto) 0.1 (0.0-0.1) 10^3/uL Absolute Nucleated RBC 0.00 x10^3/uL Nucleated RBC % 0.0 /100WBC Sodium 135 (135-145) mmol/L Potassium 4.5 (3.5-5.0) mmol/L Chloride 99 L (101-111) mmol/L Carbon Dioxide 28 (21-32) mmol/L Anion Gap 8.0 (6-13) BUN 24 H (6-20) mg/dL Creatinine 0.6 (0.6-1.2) mg/dL Estimated GFR (MDRD) 129 (>89) Glucose 95 (70-100) mg/dL Calcium 8.9 (8.5-10.3) mg/dL Assessment/Plan - Problem List (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 This tumor is eroding into his R rib cage (and you can actually put your finger on the outside of his chest wall to feel it). He has had a profound decrease in functional status, has cachexia, and had near immobility when he came into the hospital. He has improved in that he is now eating, gained a little weight, and is able to get up and move around the room a bit, and worked with PT and OT and met the goals. He lived alone and therefore he can no longer be safely discharged to there. He was started on scheduled oral morphine tid, which made him very sleepy. Hospitalist decreased the dose to bid on 06/21/22. Also, Oxycodone is available prn. Because of worsening fatigue and somnolence, today I will decrease the dose of oral morphine, but keep it twice daily He continues to tell us that he is happy with the way things are. He will be kept here until we can find appropriate placement for him. Labs in am since it will be a week since last ones. It is a simple seborrheic keratosis on his ear. I would leave that alone. If i t continues to bother him I may use topical lidocaine gel and then follow-up with liquid nitrogen but I do not believe there is anything available for us to use on the [facility] floor. I will increase morphine immediate release to 3 times daily from twice daily (2) Fatigue For the last 4 days, he has not even wanted to get out of bed for meals, says he is too tired. This is despite lowering his dose of narcotics from tid scheduled to twice daily scheduled. Presumably this could be a sign of him starting to succumb to his metastatic cancer. Because of worsening fatigue and somnolence, today previous service decreased the dose of oral morphine, but keep it twice daily. (3) Severe protein calorie malnutrition He has severe protein calorie malnutrition, but overall we think he will succumb to his neoplasm. We checked routine labs on 06/22, since none had been done for over a week, and they were all stable. (4) Cognitive impairment He has cognitive impairment that renders him unable to make his own decisions. He lived alone and therefore can no longer be safely discharged to there. We are awaiting an emergency guardianship to be established to make [facility] location plans, going forward for this gentleman. He would like to be in Hospice. This Hospitalist did speak to an [place] attorney on 06/13/22, who is pursuing this whole process with the hospital. SW has said that his grand-nephew recently said he would be available to be guardian. This hospitalist spoke to the same [place] attorney 06/25 and emergency guardianship with "grandson" by name (not legal) Miquel was being considered for POA but that is on hold. New thought is court appointed guardian.
[2022-06-30] MEDS: SENNA 8.6 MG TABLET PO SCH (08:15)
[2022-06-30] MEDS: MORPHINE IR 15 MG TABLET PO SCH ×2 (08:15→21:10)
[2022-06-30] MEDS: DOCUSATE SODIUM 250 MG CAPSULE PO SCH (08:16)
[2022-06-30] MEDS: SACCHAROMYCES BOULARDII 250 MG CAPSULE PO SCH ×2 (08:16→16:57)
[2022-06-30] MEDS: MULTIVITAMIN W/MINERALS TABLET PO SCH (08:16)
[2022-06-30] MEDS: ENOXAPARIN 40 MG/0.4 ML SYRINGE SUBQ SCH (08:16)
[2022-06-30] MEDS: polyethylene glycoL 3350 17 GM PACKET PO SCH (08:17)
--- NOTE | 2022-06-30 14:12 | PROVIDER PROGRESS NOTE ---
Subjective - Prog Note Date Prog Note Date: 06/30/22 Prog Note Time: 14:10 Current Medications - Current Medications Current Medications: Active Medications Generic Name Dose Route Start Last Admin Trade Name Freq PRN Reason Stop Dose Admin Acetaminophen 650 mg 05/29/22 14:15 06/02/22 17:16 Acetaminophen 325 Mg Tablet PO 650 mg Q4HR PRN Administration Pain 1 to 4, or Fever Docusate Sodium 250 - 500 mg 06/23/22 09:00 06/30/22 08:16 Docusate Sodium 250 Mg Capsule PO 250 mg DAILY [facility]A Administration Enoxaparin Sodium 40 mg 05/30/22 09:00 06/30/22 08:16 Enoxaparin 40 Mg/0.4 Ml Syringe SUBQ 40 mg DAILY [facility]A Administration Morphine Sulfate 7.5 mg 06/30/22 22:00 Morphine Ir 15 Mg Tablet PO TID MICHAELA Multi-Ingredient Ointment 1 applic 05/30/22 22:39 06/27/22 20:49 Zinc Oxide 20% Oint 30 Gm Tube TOP 1 applic PRN PRN Administration Skin Care Multivitamins/Minerals 1 tab 05/30/22 11:00 06/30/22 08:16 Multivitamin W/Minerals Tablet PO 1 tab DAILYWM MICHAELA Administration Ondansetron HCl 4 mg 05/29/22 14:15 Ondansetron Odt 4 Mg Tablet TL Q6HR PRN Nausea / Vomiting Oxycodone HCl 5 mg 06/23/22 09:56 06/29/22 17:05 Oxycodone 10 Mg/0.5 Ml Syringe PO 5 mg Q4HR PRN Administration PAIN Polyethylene Glycol 17 gm 05/30/22 09:00 06/30/22 08:17 Polyethylene Glycol 3350 17 Gm Packet PO 17 gm DAILY [facility]A Administration Psyllium Hydrophilic Mucilloid 1 packet 06/21/22 08:53 06/22/22 15:47 Psyllium Packet PO 1 packet DAILY PRN Administration Constipation Saccharomyces Boulardii 250 mg 06/21/22 17:00 06/30/22 08:16 Saccharomyces Boulardii 250 Mg Capsule PO 250 mg BIDWM MICHAELA Administration Senna 8.6 - 17.2 mg 06/20/22 09:00 06/30/22 08:15 Senna 8.6 Mg Tablet PO 8.6 mg DAILY [facility]A Administration No Known Home Medications 05/30/22 Objective - Vital Signs/Intake & Output Reviewed Vital Signs: Yes Vital Signs: Vital Signs x48h Temp Pulse Resp BP Pulse Ox 06/30/22 08:14 36.6 C 62 12 105/46 L 94 Intake & Output: Intake & Output 06/27/22 06/28/22 06/29/22 06/30/22 23:59 23:59 23:59 23:59 Intake Total 0946 664 7543 480 Output Total 475 525 675 300 Balance 685 325 605 180 - Objective General Appearance: positive: No acute distress (Very, very diminished muscle mass. He was admitted at 40 kg. Peaked at 48 kg with our nutrition and is 47 kg this month.), Other (Frail, cachectic elderly gentleman. When he first came in he was disheveled, very uncomfortable with his pain, confused and mumbling. He has become much more alert. Oriented to person and that is about it. He is not oriented to time, he is not oriented to place. Thinks he is in bed at home) Eyes Bilateral: positive: PERRL, EOMI ENT: positive: Other (Bilateral temporal wasting, gotten is evident.) Neck: positive: No JVD Respiratory: positive: No respiratory distress, Rhonchi (Right midlung. Painful right mid axillary area 5 pressed too hard.). 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 This tumor is eroding into his R rib cage (and you can actually put your finger on the outside of his chest wall to feel it). He has had a profound decrease in functional status, has cachexia, and had near immobility when he came into the hospital. He has improved in that he is now eating, gained a little weight, and is able to get up and move around the room a bit, and worked with PT and OT and met the goals. He lived alone and therefore he can no longer be safely discharged to there. He was started on scheduled oral morphine tid, which made him very sleepy. Hospitalist decreased the dose to bid on 06/21/22. Also, Oxycodone is available prn. Because of worsening fatigue and somnolence, today I will decrease the dose of oral morphine, but keep it twice daily He continues to tell us that he is happy with the way things are. He will be kept here until we can find appropriate placement for him. Labs in am since it will be a week since last ones. It is a simple seborrheic keratosis on his ear. I would leave that alone. If it continues to bother him I may use topical lidocaine gel and then follow-up with liquid nitrogen but I do not believe there is anything available for us to use on the [facility] floor. I will increase morphine immediate release to 3 times daily from twice daily. I failed to order it yesterday. We will do so today. Labs today show intact kidney function, and anemia. No intervention. (2) Fatigue For the last 4 days, he has not even wanted to get out of bed for meals, says he is too tired. This is despite lowering his dose of narcotics from tid scheduled to twice daily scheduled. Presumably this could be a sign of him starting to succumb to his metastatic cancer. Because of worsening fatigue and somnolence, today previous service decreased the dose of oral morphine, but keep it twice daily. (3) Severe protein calorie malnutrition He has severe protein calorie malnutrition, but overall we think he will succumb to his neoplasm. We checked routine labs on 06/22, since none had been done for over a week, and they were all stable. (4) Cognitive impairment He has cognitive impairment that renders him unable to make his own decisions. He lived alone and therefore can no longer be safely discharged to there. We are awaiting an emergency guardianship to be established to make [facility] location plans, going forward for this gentleman. He would like to be in Hospice. This Hospitalist did speak to an [employer] attorney on 06/13/22, who is pursuing this whole process with the hospital. ALBERTO has said that his grand-nephew recently said he would be available to be guardian. This hospitalist spoke to the same [employer] attorney 06/25 and emergency guardianship with "grandson" by name (not legal) Miquel was being considered for POA but that is on hold. New thought is court appointed guardian.
[2022-07-01] MEDS: MORPHINE IR 15 MG TABLET PO SCH ×4 (06:50→22:01)
[2022-07-01] MEDS: ENOXAPARIN 40 MG/0.4 ML SYRINGE SUBQ SCH (08:26)
[2022-07-01] MEDS: polyethylene glycoL 3350 17 GM PACKET PO SCH (08:26)
[2022-07-01] MEDS: DOCUSATE SODIUM 250 MG CAPSULE PO SCH (08:27)
[2022-07-01] MEDS: SACCHAROMYCES BOULARDII 250 MG CAPSULE PO SCH ×2 (08:27→17:55)
[2022-07-01] MEDS: MULTIVITAMIN W/MINERALS TABLET PO SCH (08:27)
[2022-07-01] MEDS: SENNA 8.6 MG TABLET PO SCH (08:27)
[2022-07-01] MEDS: oxyCODONE 10 MG/0.5 ML SYRINGE PO PRN (12:14)
--- NOTE | 2022-07-01 16:49 | PROVIDER PROGRESS NOTE ---
Subjective - Prog Note Date Prog Note Date: 07/01/22 Prog Note Time: 16:46 - Subjective Subjective: He thinks that the morphine is working. He has not had nearly as much pain today. It is now 3 times daily. Nursing also endorses that he seems to be more at ease. Current Medications - Current Medications Current Medications: Active Medications Acetaminophen (Acetaminophen 325 Mg Tablet) 650 mg PO Q4HR PRN PRN Reason: Pain 1 to 4, or Fever Last Admin: 06/02/22 17:16 Dose: 650 mg Docusate Sodium (Docusate Sodium 250 Mg Capsule) 250 - 500 mg PO DAILY [facility] Last Admin: 07/01/22 08:27 Dose: 250 mg Enoxaparin Sodium (Enoxaparin 40 Mg/0.4 Ml Syringe) 40 mg SUBQ DAILY [facility] Last Admin: 07/01/22 08:26 Dose: 40 mg Morphine Sulfate (Morphine Ir 15 Mg Tablet) 7.5 mg PO TID [facility] Last Admin: 07/01/22 14:54 Dose: 7.5 mg Multi-Ingredient Ointment (Zinc Oxide 20% Oint 30 Gm Tube) 1 applic TOP PRN PRN PRN Reason: Skin Care Last Admin: 06/27/22 20:49 Dose: 1 applic Multivitamins/Minerals (Multivitamin W/Minerals Tablet) 1 tab PO DAILYWM [facility] Last Admin: 07/01/22 08:27 Dose: 1 tab Ondansetron HCl (Ondansetron Odt 4 Mg Tablet) 4 mg TL Q6HR PRN PRN Reason: Nausea / Vomiting Oxycodone HCl (Oxycodone 10 Mg/0.5 Ml Syringe) 5 mg PO Q4HR PRN PRN Reason: PAIN Last Admin: 07/01/22 12:14 Dose: 5 mg Polyethylene Glycol (Polyethylene Glycol 3350 17 Gm Packet) 17 gm PO DAILY [facility] Last Admin: 07/01/22 08:26 Dose: 17 gm Psyllium Hydrophilic Mucilloid (Psyllium Packet) 1 packet PO DAILY PRN PRN Reason: Constipation Last Admin: 06/22/22 15:47 Dose: 1 packet Saccharomyces Boulardii (Saccharomyces Boulardii 250 Mg Capsule) 250 mg PO BIDWM [facility] Last Admin: 07/01/22 08:27 Dose: 250 mg Senna (Senna 8.6 Mg Tablet) 8.6 - 17.2 mg PO DAILY [facility] Last Admin: 07/01/22 08:27 Dose: 17.2 mg No Known Home Medications 05/30/22 Objective - Vital Signs/Intake & Output Reviewed Vital Signs: Yes Vital Signs: Vital Signs x48h Temp Pulse Resp BP Pulse Ox 07/01/22 15:47 36.6 C 61 20 114/50 L 95 Intake & Output: Intake & Output 06/28/22 06/29/22 06/30/22 07/01/22 23:59 23:59 23:59 23:59 Intake Total 850 1280 1000 400 Output Total 525 675 700 425 Balance 325 605 300 -25 - Objective General Appearance: positive: Alert, Other (Cachectic, short statured elderly man, recognizes me, shakes my hand) Eyes Bilateral: positive: PERRL ENT: positive: No signs of dehydration Neck: positive: No JVD Respiratory: positive: No respiratory distress, Rhonchi (Right mid lobe right lower lobe). negative: Wheezes, Rales Cardiovascular: positive: Regular rate & rhythm Abdomen: positive: Non-tender, No organomegaly, Nml bowel sounds, No distention Skin: positive: Warm, Dry Extremities: positive: Full ROM, No pedal edema Neurologic/Psychiatric: positive: CN's nml (2-12), Disoriented to place, Disoriented to time. negative: Motor nml (He does not have any focal deficits. However he has generalized weakness, spending more more time in bed. Spending more time sleeping. 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 This tumor is eroding into his R rib cage (and you can actually put your finger on the outside of his chest wall to feel it). He has had a profound decrease in functional status, has cachexia, and had near immobility when he came into the hospital. He has improved in that he is now eating, gained a little weight, and is able to get up and move around the room a bit, and worked with PT and OT and met the goals. He lived alone and therefore he can no longer be safely discharged to there. He was started on scheduled oral morphine tid, which made him very sleepy. Hospitalist decreased the dose to bid on 06/21/22. Also, Oxycodone is available prn. Because of worsening fatigue and somnolence, today I will decrease the dose of oral morphine, but keep it twice daily He continues to tell us that he is happy with the way things are. He will be kept here until we can find appropriate placement for him. Labs in am since it will be a week since last ones. It is a simple seborrheic keratosis on his ear. I would leave that alone. If it continues to bother him I may use topical lidocaine gel and then follow-up with liquid nitrogen but I do not believe there is anything available for us to use on the [facility] floor. I have already increased morphine immediate release to 3 times daily from twice daily. Labs 06/30 show intact kidney function, and anemia. No intervention. (2) Fatigue Better pain control. He did not want a get out of bed for his meals. Said he was too tired. He was on 3 times daily scheduled morphine so we reduced to twice daily. Fatigue really did not get much better and pain got worse. So we increased the morphine to 3 times daily again. I think the fatigue is just a dwindling. The cancer of his lung must be progressing. (3) Severe protein calorie malnutrition He has severe protein calorie malnutrition, but overall we think he will succumb to his neoplasm. We checked routine labs on 06/22, since none had been done for over a week, and they were all stable. (4) Cognitive impairment He has cognitive impairment that renders him unable to make his own decisions. He lived alone and therefore can no longer be safely discharged to there. We are awaiting an emergency guardianship to be established to make [facility] location plans, going forward for this gentleman. He would like to be in Hospice. This Hospitalist did speak to an attorney law clerk on 06/13/22, who is pursuing this whole process with the hospital. ALBERTO has said that his grand-nephew recently said he would be available to be guardian. This hospitalist spoke to the same attorney law clerk 06/25 and emergency guardianship with "grandson" by name (not legal) Miquel was being considered for POA but that is on hold. New thought is court appointed guardian.
[2022-07-02] MEDS: MORPHINE IR 15 MG TABLET PO SCH ×3 (06:07→21:04)
[2022-07-02] MEDS: SACCHAROMYCES BOULARDII 250 MG CAPSULE PO SCH ×2 (08:17→17:16)
[2022-07-02] MEDS: SENNA 8.6 MG TABLET PO SCH (08:17)
[2022-07-02] MEDS: MULTIVITAMIN W/MINERALS TABLET PO SCH (08:17)
[2022-07-02] MEDS: DOCUSATE SODIUM 250 MG CAPSULE PO SCH (08:18)
[2022-07-02] MEDS: ENOXAPARIN 40 MG/0.4 ML SYRINGE SUBQ SCH (08:18)
[2022-07-02] MEDS: polyethylene glycoL 3350 17 GM PACKET PO SCH (15:18)
--- NOTE | 2022-07-02 16:19 | PROVIDER PROGRESS NOTE ---
Assessment/Plan - Problem List (1) Metastatic lung cancer (metastasis from lung to other site) Qualifiers: Qualified Code(s): C34.90 - Malignant neoplasm of unspecified part of unspecified bronchus or lung Assessment/Plan: He has a lung neoplasm in the right lower lung. This tumor is eroding into his R rib cage (and you can actually put your finger on the outside of his chest wall to feel it). He has had a profound decrease in functional status, has cachexia, and had near immobility when he came into the hospital. He has improved in that he is now eating, gained a little weight, and is able to get up and move around the room a bit, and worked with PT and OT and met the goals. He lived alone and therefore he can no longer be safely discharged to there. He was started on scheduled oral morphine tid, which made him very sleepy. Hospitalist decreased the dose to bid on 06/21/22. Also, Oxycodone is available prn. Because of worsening fatigue and somnolence, today I will decrease the dose of oral morphine, but keep it twice daily We had to increase morphine immediate release to 3 times daily from twice daily. Latest labs 06/30 show intact kidney function, and anemia. No intervention. (2) Fatigue Better pain control. He did not want a get out of bed for his meals. Said he was too tired. He was on 3 times daily scheduled morphine so we reduced to twice daily. Fatigue really did not get much better and pain got worse. So we increased the morphine to 3 times daily again. I think the fatigue is just a dwindling. The cancer of his lung must be progressing. (3) Severe protein calorie malnutrition He has severe protein calorie malnutrition, but overall we think he will succumb to his neoplasm. We checked routine labs on 06/30, since none had been done for over a week, and they were all stable. (4) Cognitive impairment He has cognitive impairment that renders him unable to make his own decisions. He lived alone and therefore can no longer be safely discharged to there. We are awaiting an emergency guardianship to be established to make [facility] location plans, going forward for this gentleman. He would like to be in Hospice. This Hospitalist did speak to an senior trial attorney on 06/13/22, who is pursuing this whole process with the hospital. SW has said that his grand-nephew recently said he would be available to be guardian. This hospitalist spoke to the same senior trial attorney 06/25 and emergency guardianship with "grandson" by name (not legal) Miquel was being considered for POA but that is on hold. New thought is court appointed guardian. - Current Meds Current Meds: Current Medications Generic Name Dose Route Start Last Admin Trade Name Freq PRN Reason Stop Dose Admin Acetaminophen 650 mg 05/29/22 14:15 06/02/22 17:16 Acetaminophen 325 Mg Tablet PO 650 mg Q4HR PRN Administration Pain 1 to 4, or Fever Docusate Sodium 250 - 500 mg 06/23/22 09:00 07/02/22 08:18 Docusate Sodium 250 Mg Capsule PO 250 mg DAILY MICHAELA Administration Enoxaparin Sodium 40 mg 05/30/22 09:00 07/02/22 08:18 Enoxaparin 40 Mg/0.4 Ml Syringe SUBQ 40 mg DAILY IMCHAELA Administration Morphine Sulfate 7.5 mg 06/30/22 22:00 07/02/22 14:14 Morphine Ir 15 Mg Tablet PO 7.5 mg TID MICHAELA Administration Multi-Ingredient Ointment 1 applic 05/30/22 22:39 06/27/22 20:49 Zinc Oxide 20% Oint 30 Gm Tube TOP 1 applic PRN PRN Administration Skin Care Multivitamins/Minerals 1 tab 05/30/22 11:00 07/02/22 08:17 Multivitamin W/Minerals Tablet PO 1 tab DAILYWM MICHAELA Administration Oxycodone HCl 5 mg 06/23/22 09:56 07/01/22 12:14 Oxycodone 10 Mg/0.5 Ml Syringe PO 5 mg Q4HR PRN Administration PAIN Polyethylene Glycol 17 gm 05/30/22 09:00 07/02/22 15:18 Polyethylene Glycol 3350 17 Gm Packet PO 17 gm DAILY MICHAELA Administration Psyllium Hydrophilic Mucilloid 1 packet 06/21/22 08:53 06/22/22 15:47 Psyllium Packet PO 1 packet DAILY PRN Administration Constipation Saccharomyces Boulardii 250 mg 06/21/22 17:00 07/02/22 08:17 Saccharomyces Boulardii 250 Mg Capsule PO 250 mg BIDWM MICHAELA Administration Senna 8.6 - 17.2 mg 06/20/22 09:00 07/02/22 08:17 Senna 8.6 Mg Tablet PO 17.2 mg DAILY MICHAELA Administration - Lab Result Fish Bone Diagrams: 06/29/22 05:04 06/29/22 05:04 Subjective - Subjective Patient Reports: Resting Comfortably, No Complaints Nursing Reports: Other (RN says he is overall more sleepy since a week ago) Objective Vital Signs: Vital Signs - 24 hr 07/02/22 08:04 Temperature 36.6 C Heart Rate [ 61 Brachial] Respiratory 20 Rate Blood Pressure 115/50 L [Left Brachial artery] O2 Saturation 95 Oxygen O2 Source Room air I&O (Last 24 Hrs): Intake and Output Totals x24h 06/30/22 07/01/22 07/02/22 23:59 23:59 23:59 Intake Total 1000 730 640 Output Total 700 575 650 Balance 300 155 -10 General: Alert (but awakens, eats) HEENT: EOMI, Mucous membr. moist/pink Neck: Supple Neuro: Alert, Non Focal Cardiovascular: Regular rate Respiratory: No respiratory distress, Breath sounds nml Abdomen: Normal bowel sounds, Soft Extremities: No clubbing, No edema - Results Results: Laboratory Results WBC 9.0 x10^3/uL (4.8-10.8) 06/29/22 05:04 RBC 3.37 10^6/uL (4.70-6.10) L 06/29/22 05:04 Hgb 8.4 g/dL (14.0-18.0) L 06/29/22 05:04 Hct 28.6 % (42.0-52.0) L 06/29/22 05:04 MCV 84.9 fL (80.0-94.0) 06/29/22 05:04 MCH 24.9 pg (27.0-31.0) L 06/29/22 05:04 MCHC 29.4 g/dL (32.0-36.0) L 06/29/22 05:04 RDW 16.0 % (12.0-15.0) H 06/29/22 05:04 Plt Count 404 10^3/uL (130-450) 06/29/22 05:04 MPV 8.9 fL (7.4-11.4) 06/29/22 05:04 Neut # (Auto) 6.1 10^3/uL (1.5-6.6) 06/29/22 05:04 Lymph # (Auto) 1.4 10^3/uL (1.5-3.5) L 06/29/22 05:04 [place] # (Auto) 1.2 10^3/uL (0.0-1.0) H 06/29/22 05:04 Eos # (Auto) 0.1 10^3/uL (0.0-0.7) 06/29/22 05:04 Baso # (Auto) 0.1 10^3/uL (0.0-0.1) 06/29/22 05:04 Absolute Nucleated RBC 0.00 x10^3/uL 06/29/22 05:04 Nucleated RBC % 0.0 /100WBC 06/29/22 05:04 PT 13.8 secs (9.9-12.6) H 05/30/22 04:50 INR 1.3 (0.8-1.2) H 05/30/22 04:50 Sodium 135 mmol/L (135-145) 06/29/22 05:04 Potassium 4.5 mmol/L (3.5-5.0) 06/29/22 05:04 Chloride 99 mmol/L (101-111) L 06/29/22 05:04 Carbon Dioxide 28 mmol/L (21-32) 06/29/22 05:04 Anion Gap 8.0 (6-13) 06/29/22 05:04 BUN 24 mg/dL (6-20) H 06/29/22 05:04 Creatinine 0.6 mg/dL (0.6-1.2) 06/29/22 05:04 Estimated GFR (MDRD) 129 (>89) 06/29/22 05:04 Glucose 95 mg/dL (70-100) 06/29/22 05:04 Calcium 8.9 mg/dL (8.5-10.3) 06/29/22 05:04 Phosphorus 1.1 mg/dL (2.5-4.6) L 05/30/22 04:50 Magnesium 2.1 mg/dL (1.7-2.8) 06/07/22 05:01 Total Bilirubin 0.8 mg/dL (0.2-1.0) 05/29/22 06:20 AST 20 IU/L (10-42) 05/29/22 06:20 ALT 17 IU/L (10-60) 05/29/22 06:20 Alkaline Phosphatase 58 IU/L (42-121) 05/29/22 06:20 Total Creatine Kinase 87 IU/L (22-269) 05/28/22 11:50 Total Protein 6.4 g/dL (6.7-8.2) L 05/29/22 06:20 Albumin 2.5 g/dL (3.2-5.5) L 05/29/22 06:20 Globulin 3.9 g/dL (2.1-4.2) 05/29/22 06:20 Albumin/Globulin Ratio 0.6 (1.0-2.2) L 05/29/22 06:20 Lipase 35 U/L (22-51) 05/29/22 06:20 TSH 2.68 uIU/mL (0.34-5.60) 05/30/22 04:50 Urine Color DARK YELLOW 05/28/22 12:07 Urine Clarity CLEAR (CLEAR) 05/28/22 12:07 Urine pH 6.0 PH (5.0-7.5) 05/28/22 12:07 Ur Specific [place] 1.025 (1.002-1.030) 05/28/22 12:07 Urine Protein 30 mg/dL (NEGATIVE) H 05/28/22 12:07 Urine Glucose (UA) NEGATIVE mg/dL (NEGATIVE) 05/28/22 12:07 Urine Ketones 15 mg/dL (NEGATIVE) H 05/28/22 12:07 Urine Occult Blood LARGE (NEGATIVE) H 05/28/22 12:07 Urine Nitrite NEGATIVE (NEGATIVE) 05/28/22 12:07 Urine Bilirubin NEGATIVE (NEGATIVE) 05/28/22 12:07 Urine Urobilinogen 1 (NORMAL) E.U./dL (NORMAL) 05/28/22 12:07 Ur Leukocyte Esterase NEGATIVE (NEGATIVE) 05/28/22 12:07 Urine RBC TNTC /HPF (0-5) H 05/28/22 12:07 Urine WBC 6-10 /HPF (0-3) H 05/28/22 12:07 Ur Epithelial Cells MOD Transitional /HPF (<= Few) H 05/28/22 12:07 Ur Squamous Epith Cells FEW Squamous (<= Few) 05/28/22 12:07 Urine Bacteria Few /HPF (None Seen) 05/28/22 12:07 Urine Casts 6-10 Hyaline Casts /LPF 05/28/22 12:07 Ur Microscopic Review INDICATED 05/28/22 12:07 Urine Culture Comments NOT INDICATED 05/28/22 12:07 Coronavirus (PCR) NEGATIVE 05/29/22 14:20 - Procedures Procedures: Procedures ENDO RECTUM POLYPECTOMY (04/27/15) ENDOSC POLYPECTOMY OF LG INTEST (04/27/15) EXCISION OF ASCENDING COLON, ENDO, DIAGN (05/02/17) EXCISION OF DESCENDING COLON, ENDO, DIAGN (05/02/17) EXCISION OF LEFT LOWER LEG SKIN, EXTERNAL APPROACH, DIAGN (11/16/20) EXCISION OF TRANSVERSE COLON, ENDO, DIAGN (05/02/17)
[2022-07-03] MEDS: MORPHINE IR 15 MG TABLET PO SCH ×3 (06:29→21:33)
[2022-07-03] MEDS: MULTIVITAMIN W/MINERALS TABLET PO SCH (08:30)
[2022-07-03] MEDS: DOCUSATE SODIUM 250 MG CAPSULE PO SCH (08:30)
[2022-07-03] MEDS: SACCHAROMYCES BOULARDII 250 MG CAPSULE PO SCH ×2 (08:30→17:38)
[2022-07-03] MEDS: polyethylene glycoL 3350 17 GM PACKET PO SCH (08:30)
[2022-07-03] MEDS: SENNA 8.6 MG TABLET PO SCH (08:31)
[2022-07-03] MEDS: ENOXAPARIN 40 MG/0.4 ML SYRINGE SUBQ SCH (10:58)
[2022-07-04] MEDS: MORPHINE IR 15 MG TABLET PO SCH ×3 (06:09→21:29)
[2022-07-04] MEDS: SENNA 8.6 MG TABLET PO SCH ×3 (07:42→21:29)
[2022-07-04] MEDS: ENOXAPARIN 40 MG/0.4 ML SYRINGE SUBQ SCH (07:42)
[2022-07-04] MEDS: polyethylene glycoL 3350 17 GM PACKET PO SCH (07:42)
[2022-07-04] MEDS: ACETAMINOPHEN 325 MG TABLET PO PRN (07:43)
[2022-07-04] MEDS: DOCUSATE SODIUM 250 MG CAPSULE PO SCH ×2 (07:43→21:30)
[2022-07-04] MEDS: SACCHAROMYCES BOULARDII 250 MG CAPSULE PO SCH ×2 (07:43→16:38)
[2022-07-04] MEDS: MULTIVITAMIN W/MINERALS TABLET PO SCH (07:43)
[2022-07-04] MEDS: PSYLLIUM PACKET PO PRN (14:33)
--- NOTE | 2022-07-04 15:23 | PROVIDER PROGRESS NOTE ---
Assessment/Plan - Problem List (1) Metastatic lung cancer (metastasis from lung to other site) Qualifiers: Qualified Code(s): C34.90 - Malignant neoplasm of unspecified part of unspecified bronchus or lung Assessment/Plan: He has a lung neoplasm in the right lower lung. This tumor is eroding into his R rib cage (and you can actually put your finger on the outside of his chest wall to feel it). He has had a profound decrease in functional status, has cachexia, and had near immobility when he came into the hospital. He has improved in that he is now eating, gained a little weight, and is able to get up and move around the room a bit, and worked with PT and OT and met the goals. He lived alone and therefore he can no longer be safely discharged to there. He was started on scheduled oral morphine tid, which made him very sleepy. Hospitalist decreased the dose to bid on 06/21/22. Also, Oxycodone is available prn. Because of worsening fatigue and somnolence, today I will decrease the dose of oral morphine, but keep it twice daily We had to increase morphine immediate release to 3 times daily from twice daily. Latest abs 06/30 show intact kidney function, and anemia. No intervention. (2) Fatigue Better pain control. He did not want a get out of bed for his meals. Said he was too tired. He was on 3 times daily scheduled morphine so we reduced to twice daily. Fatigue really did not get much better and pain got worse. So we increased the morphine to 3 times daily again. I think the fatigue is just a dwindling. The cancer of his lung must be progressing. (3) Severe protein calorie malnutrition He has severe protein calorie malnutrition, but overall we think he will succumb to his neoplasm. We checked routine labs on 06/30, since none had been done for over a week, and they were all stable. (4) Cognitive impairment He has cognitive impairment that renders him unable to make his own decisions. He lived alone and therefore can no longer be safely discharged to there. We are awaiting an emergency guardianship to be established to make [facility] location plans, going forward for this gentleman. He would like to be in Hospice. This Hospitalist did speak to an ticker wirer on 06/13/22, who is pursuing this whole process with the hospital. SW has said that his grand-nephew recently said he would be available to be guardian. The last hospitalist spoke to the same atto joanne 06/25 and emergency guardianship with "grandson" by name (not legal) Miquel was being considered for POA but that is on hold. New thought is court appointed guardian. - Current Meds Current Meds: Current Medications Generic Name Dose Route Start Last Admin Trade Name Freq PRN Reason Stop Dose Admin Acetaminophen 650 mg 05/29/22 14:15 07/04/22 07:43 Acetaminophen 325 Mg Tablet PO 650 mg Q4HR PRN Administration Pain 1 to 4, or Fever Enoxaparin Sodium 40 mg 05/30/22 09:00 07/04/22 07:42 Enoxaparin 40 Mg/0.4 Ml Syringe SUBQ 40 mg DAILY MICHAELA Administration Morphine Sulfate 7.5 mg 06/30/22 22:00 07/04/22 14:33 Morphine Ir 15 Mg Tablet PO 7.5 mg TID MICHAELA Administration Multi-Ingredient Ointment 1 applic 05/30/22 22:39 06/27/22 20:49 Zinc Oxide 20% Oint 30 Gm Tube TOP 1 applic PRN PRN Administration Skin Care Multivitamins/Minerals 1 tab 05/30/22 11:00 07/04/22 07:43 Multivitamin W/Minerals Tablet PO 1 tab DAILYWM MICHAELA Administration Oxycodone HCl 5 mg 06/23/22 09:56 07/01/22 12:14 Oxycodone 10 Mg/0.5 Ml Syringe PO 5 mg Q4HR PRN Administration PAIN Polyethylene Glycol 17 gm 05/30/22 09:00 07/04/22 07:42 Polyethylene Glycol 3350 17 Gm Packet PO 17 gm DAILY MICHAELA Administration Psyllium Hydrophilic Mucilloid 1 packet 06/21/22 08:53 07/04/22 14:33 Psyllium Packet PO 1 packet DAILY PRN Administration Constipation Saccharomyces Boulardii 250 mg 06/21/22 17:00 07/04/22 07:43 Saccharomyces Boulardii 250 Mg Capsule PO 250 mg BIDWM MICHAELA Administration - Lab Result Fish Bone Diagrams: 06/29/22 05:04 06/29/22 05:04 - Additional Planning My Orders: My Active Orders 07/04/22 Evaluate and Treat OT [OT] Routine Evaluate and Treat PT [PT] Routine 07/04/22 17:00 Senna [Senokot] 8.6 - 17.2 mg PO BID 07/04/22 21:00 Docusate Sodium 250Mg Capsule [Colace 250Mg Capsule] 250 - 500 mg PO BID Subjective - Subjective Patient Reports: Resting Comfortably, No Complaints Nursing Reports: Other (Pain under control. He gets up for meals, then naps al ot) Objective Vital Signs: Vital Signs - 24 hr 07/03/22 07/04/22 15:53 08:33 Temperature 36.6 C 36.2 C L Heart Rate [ 62 61 Brachial] Respiratory 20 16 Rate Blood Pressure 108/47 L 100/50 L [Right Brachial artery] O2 Saturation 94 95 Oxygen O2 Source Room air I&O (Last 24 Hrs): Intake and Output Totals x24h 07/02/22 07/03/22 07/04/22 23:59 23:59 23:59 Intake Total 1080 1020 360 Output Total 1125 550 650 Balance -45 470 -290 General: Other (Sleepy, awakens) HEENT: Atraumatic, Mucous membr. moist/pink, Other (Pale) Neck: Supple Neuro: Alert, Other (HUSLIA) Cardiovascular: Regular rate Respiratory: No respiratory distress Abdomen: Soft Extremities: No edema - Results Results: Laboratory Results WBC 9.0 x10^3/uL (4.8-10.8) 06/29/22 05:04 RBC 3.37 10^6/uL (4.70-6.10) L 06/29/22 05:04 Hgb 8.4 g/dL (14.0-18.0) L 06/29/22 05:04 Hct 28.6 % (42.0-52.0) L 06/29/22 05:04 MCV 84.9 fL (80.0-94.0) 06/29/22 05:04 MCH 24.9 pg (27.0-31.0) L 06/29/22 05:04 MCHC 29.4 g/dL (32.0-36.0) L 06/29/22 05:04 RDW 16.0 % (12.0-15.0) H 06/29/22 05:04 Plt Count 404 10^3/uL (130-450) 06/29/22 05:04 MPV 8.9 fL (7.4-11.4) 06/29/22 05:04 Neut # (Auto) 6.1 10^3/uL (1.5-6.6) 06/29/22 05:04 Lymph # (Auto) 1.4 10^3/uL (1.5-3.5) L 06/29/22 05:04 [place] # (Auto) 1.2 10^3/uL (0.0-1.0) H 06/29/22 05:04 Eos # (Auto) 0.1 10^3/uL (0.0-0.7) 06/29/22 05:04 Baso # (Auto) 0.1 10^3/uL (0.0-0.1) 06/29/22 05:04 Absolute Nucleated RBC 0.00 x10^3/uL 06/29/22 05:04 Nucleated RBC % 0.0 /100WBC 06/29/22 05:04 PT 13.8 secs (9.9-12.6) H 05/30/22 04:50 INR 1.3 (0.8-1.2) H 05/30/22 04:50 Sodium 135 mmol/L (135-145) 06/29/22 05:04 Potassium 4.5 mmol/L (3.5-5.0) 06/29/22 05:04 Chloride 99 mmol/L (101-111) L 06/29/22 05:04 Carbon Dioxide 28 mmol/L (21-32) 06/29/22 05:04 Anion Gap 8.0 (6-13) 06/29/22 05:04 BUN 24 mg/dL (6-20) H 06/29/22 05:04 Creatinine 0.6 mg/dL (0.6-1.2) 06/29/22 05:04 Estimated GFR (MDRD) 129 (>89) 06/29/22 05:04 Glucose 95 mg/dL (70-100) 06/29/22 05:04 Calcium 8.9 mg/dL (8.5-10.3) 06/29/22 05:04 Phosphorus 1.1 mg/dL (2.5-4.6) L 05/30/22 04:50 Magnesium 2.1 mg/dL (1.7-2.8) 06/07/22 05:01 Total Bilirubin 0.8 mg/dL (0.2-1.0) 05/29/22 06:20 AST 20 IU/L (10-42) 05/29/22 06:20 ALT 17 IU/L (10-60) 05/29/22 06:20 Alkaline Phosphatase 58 IU/L (42-121) 05/29/22 06:20 Total Creatine Kinase 87 IU/L (22-269) 05/28/22 11:50 Total Protein 6.4 g/dL (6.7-8.2) L 05/29/22 06:20 Albumin 2.5 g/dL (3.2-5.5) L 05/29/22 06:20 Globulin 3.9 g/dL (2.1-4.2) 05/29/22 06:20 Albumin/Globulin Ratio 0.6 (1.0-2.2) L 05/29/22 06:20 Lipase 35 U/L (22-51) 05/29/22 06:20 TSH 2.68 uIU/mL (0.34-5.60) 05/30/22 04:50 Urine Color DARK YELLOW 05/28/22 12:07 Urine Clarity CLEAR (CLEAR) 05/28/22 12:07 Urine pH 6.0 PH (5.0-7.5) 05/28/22 12:07 Ur Specific [place] 1.025 (1.002-1.030) 05/28/22 12:07 Urine Protein 30 mg/dL (NEGATIVE) H 05/28/22 12:07 Urine Glucose (UA) NEGATIVE mg/dL (NEGATIVE) 05/28/22 12:07 Urine Ketones 15 mg/dL (NEGATIVE) H 05/28/22 12:07 Urine Occult Blood LARGE (NEGATIVE) H 05/28/22 12:07 Urine Nitrite NEGATIVE (NEGATIVE) 05/28/22 12:07 Urine Bilirubin NEGATIVE (NEGATIVE) 05/28/22 12:07 Urine Urobilinogen 1 (NORMAL) E.U./dL (NORMAL) 05/28/22 12:07 Ur Leukocyte Esterase NEGATIVE (NEGATIVE) 05/28/22 12:07 Urine RBC TNTC /HPF (0-5) H 05/28/22 12:07 Urine WBC 6-10 /HPF (0-3) H 05/28/22 12:07 Ur Epithelial Cells MOD Transitional /HPF (<= Few) H 05/28/22 12:07 Ur Squamous Epith Cells FEW Squamous (<= Few) 05/28/22 12:07 Urine Bacteria Few /HPF (None Seen) 05/28/22 12:07 Urine Casts 6-10 Hyaline Casts /LPF 05/28/22 12:07 Ur Microscopic Review INDICATED 05/28/22 12:07 Urine Culture Comments NOT INDICATED 05/28/22 12:07 Coronavirus (PCR) NEGATIVE 05/29/22 14:20 - Procedures Procedures: Procedures ENDO RECTUM POLYPECTOMY (04/27/15) ENDOSC POLYPECTOMY OF LG INTEST (04/27/15) EXCISION OF ASCENDING COLON, ENDO, DIAGN (05/02/17) EXCISION OF DESCENDING COLON, ENDO, DIAGN (05/02/17) EXCISION OF LEFT LOWER LEG SKIN, EXTERNAL APPROACH, DIAGN (11/16/20) EXCISION OF TRANSVERSE COLON, ENDO, DIAGN (05/02/17)
--- NOTE | 2022-07-04 15:37 | PROVIDER PROGRESS NOTE ---
Assessment/Plan - Problem List (1) Metastatic lung cancer (metastasis from lung to other site) Qualifiers: Qualified Code(s): C34.90 - Malignant neoplasm of unspecified part of unspecified bronchus or lung Assessment/Plan: He has a lung neoplasm in the right lower lung. This tumor is eroding into his R rib cage (and you can actually put your finger on the outside of his chest wall to feel it). He has had a profound decrease in functional status, has cachexia, and had near immobility when he came into the hospital. He has improved in that he is now eating, gained a little weight, and is able to get up and move around the room a bit, and worked with PT and OT and met the goals. He lived alone and therefore he can no longer be safely discharged to there. He was started on scheduled oral morphine tid, which made him very sleepy. Hospitalist decreased the dose to bid on 06/21/22. Also, Oxycodone is available prn. Because of worsening fatigue and somnolence, today I will decrease the dose of oral morphine, but keep it twice daily. We had to increase morphine immediate release back to 3 times daily from twice daily. (2) Fatigue Better pain control. He did not want a get out of bed for his meals. Said he was too tired. He was on 3 times daily scheduled morphine so we reduced to twice daily. Fatigue really did not get much better and pain got worse. So we increased the morphine to 3 times daily again. I think the fatigue is just a dwindling, and the cancer of his lung must be progressing. (3) Severe protein calorie malnutrition He has severe protein calorie malnutrition, but overall we think he will succumb to his neoplasm. We checked routine labs on 06/30, since none had been done for over a week, and they were all stable. No intervention. (4) Cognitive impairment He has cognitive impairment that renders him unable to make his own decisions. He lived alone and therefore can no longer be safely discharged to there. We are awaiting an emergency guardianship to be established to make [facility] location plans, going forward for this gentleman. He would like to be in Hospice. The last Hospitalist did speak to an assistant city attorney on 06/13/22, who is pursuing this whole process with the hospital. SW has said that his grand-nephew recently said he would be available to be guardian. That hospitalist spoke to the same assistant city attorney 06/25 and emergency guardianship with "grandson" by name (not legal) Miquel is being considered for POA. Working on a court appointed guardian. Meanwhile ALBERTO has been looking for an LONGTERM for him to go to, and today a facility requested that PT and OT instruct him on passive ROM, and document that encounter. PT and OT re-evals ordered. - Current Meds Current Meds: Current Medications Generic Name Dose Route Start Last Admin Trade Name Freq PRN Reason Stop Dose Admin Acetaminophen 650 mg 05/29/22 14:15 07/04/22 07:43 Acetaminophen 325 Mg Tablet PO 650 mg Q4HR PRN Administration Pain 1 to 4, or Fever Enoxaparin Sodium 40 mg 05/30/22 09:00 07/04/22 07:42 Enoxaparin 40 Mg/0.4 Ml Syringe SUBQ 40 mg DAILY MICHAELA Administration Morphine Sulfate 7.5 mg 06/30/22 22:00 07/04/22 14:33 Morphine Ir 15 Mg Tablet PO 7.5 mg TID MICHAELA Administration Multi-Ingredient Ointment 1 applic 05/30/22 22:39 06/27/22 20:49 Zinc Oxide 20% Oint 30 Gm Tube TOP 1 applic PRN PRN Administration Skin Care Multivitamins/Minerals 1 tab 05/30/22 11:00 07/04/22 07:43 Multivitamin W/Minerals Tablet PO 1 tab DAILYWM MICHAELA Administration Oxycodone HCl 5 mg 06/23/22 09:56 07/01/22 12:14 Oxycodone 10 Mg/0.5 Ml Syringe PO 5 mg Q4HR PRN Administration PAIN Polyethylene Glycol 17 gm 05/30/22 09:00 07/04/22 07:42 Polyethylene Glycol 3350 17 Gm Packet PO 17 gm DAILY MICHAELA Administration Psyllium Hydrophilic Mucilloid 1 packet 06/21/22 08:53 07/04/22 14:33 Psyllium Packet PO 1 packet DAILY PRN Administration Constipation Saccharomyces Boulardii 250 mg 06/21/22 17:00 07/04/22 07:43 Saccharomyces Boulardii 250 Mg Capsule PO 250 mg BIDWM MICHAELA Administration - Lab Result Fish Bone Diagrams: 06/29/22 05:04 06/29/22 05:04 - Additional Planning My Orders: My Active Orders 07/04/22 Evaluate and Treat OT [OT] Routine Evaluate and Treat PT [PT] Routine 07/04/22 17:00 Senna [Senokot] 8.6 - 17.2 mg PO BID 07/04/22 21:00 Docusate Sodium 250Mg Capsule [Colace 250Mg Capsule] 250 - 500 mg PO BID Subjective - Subjective Patient Reports: Resting Comfortably Nursing Reports: Other (Pain is under control, per RN.) Objective Vital Signs: Vital Signs - 24 hr 07/03/22 07/04/22 15:53 08:33 Temperature 36.6 C 36.2 C L Heart Rate [ 62 61 Brachial] Respiratory 20 16 Rate Blood Pressure 108/47 L 100/50 L [Right Brachial artery] O2 Saturation 94 95 Oxygen O2 Source Room air I&O (Last 24 Hrs): Intake and Output Totals x24h 07/02/22 07/03/22 07/04/22 23:59 23:59 23:59 Intake Total 1080 1020 360 Output Total 1125 550 650 Balance -45 470 -290 General: Other (Sleeping) HEENT: Mucous membr. moist/pink Neck: Supple Neuro: Non Focal, Other ([place]) Cardiovascular: Regular rate Respiratory: No respiratory distress Abdomen: Soft Extremities: No edema - Results Results: Laboratory Results WBC 9.0 x10^3/uL (4.8-10.8) 06/29/22 05:04 RBC 3.37 10^6/uL (4.70-6.10) L 06/29/22 05:04 Hgb 8.4 g/dL (14.0-18.0) L 06/29/22 05:04 Hct 28.6 % (42.0-52.0) L 06/29/22 05:04 MCV 84.9 fL (80.0-94.0) 06/29/22 05:04 MCH 24.9 pg (27.0-31.0) L 06/29/22 05:04 MCHC 29.4 g/dL (32.0-36.0) L 06/29/22 05:04 RDW 16.0 % (12.0-15.0) H 06/29/22 05:04 Plt Count 404 10^3/uL (130-450) 06/29/22 05:04 MPV 8.9 fL (7.4-11.4) 06/29/22 05:04 Neut # (Auto) 6.1 10^3/uL (1.5-6.6) 06/29/22 05:04 Lymph # (Auto) 1.4 10^3/uL (1.5-3.5) L 06/29/22 05:04 [place] # (Auto) 1.2 10^3/uL (0.0-1.0) H 06/29/22 05:04 Eos # (Auto) 0.1 10^3/uL (0.0-0.7) 06/29/22 05:04 Baso # (Auto) 0.1 10^3/uL (0.0-0.1) 06/29/22 05:04 Absolute Nucleated RBC 0.00 x10^3/uL 06/29/22 05:04 Nucleated RBC % 0.0 /100WBC 06/29/22 05:04 PT 13.8 secs (9.9-12.6) H 05/30/22 04:50 INR 1.3 (0.8-1.2) H 05/30/22 04:50 Sodium 135 mmol/L (135-145) 06/29/22 05:04 Potassium 4.5 mmol/L (3.5-5.0) 06/29/22 05:04 Chloride 99 mmol/L (101-111) L 06/29/22 05:04 Carbon Dioxide 28 mmol/L (21-32) 06/29/22 05:04 Anion Gap 8.0 (6-13) 06/29/22 05:04 BUN 24 mg/dL (6-20) H 06/29/22 05:04 Creatinine 0.6 mg/dL (0.6-1.2) 06/29/22 05:04 Estimated GFR (MDRD) 129 (>89) 06/29/22 05:04 Glucose 95 mg/dL (70-100) 06/29/22 05:04 Calcium 8.9 mg/dL (8.5-10.3) 06/29/22 05:04 Phosphorus 1.1 mg/dL (2.5-4.6) L 05/30/22 04:50 Magnesium 2.1 mg/dL (1.7-2.8) 06/07/22 05:01 Total Bilirubin 0.8 mg/dL (0.2-1.0) 05/29/22 06:20 AST 20 IU/L (10-42) 05/29/22 06:20 ALT 17 IU/L (10-60) 05/29/22 06:20 Alkaline Phosphatase 58 IU/L (42-121) 05/29/22 06:20 Total Creatine Kinase 87 IU/L (22-269) 05/28/22 11:50 Total Protein 6.4 g/dL (6.7-8.2) L 05/29/22 06:20 Albumin 2.5 g/dL (3.2-5.5) L 05/29/22 06:20 Globulin 3.9 g/dL (2.1-4.2) 05/29/22 06:20 Albumin/Globulin Ratio 0.6 (1.0-2.2) L 05/29/22 06:20 Lipase 35 U/L (22-51) 05/29/22 06:20 TSH 2.68 uIU/mL (0.34-5.60) 05/30/22 04:50 Urine Color DARK YELLOW 05/28/22 12:07 Urine Clarity CLEAR (CLEAR) 05/28/22 12:07 Urine pH 6.0 PH (5.0-7.5) 05/28/22 12:07 Ur Specific [place] 1.025 (1.002-1.030) 05/28/22 12:07 Urine Protein 30 mg/dL (NEGATIVE) H 05/28/22 12:07 Urine Glucose (UA) NEGATIVE mg/dL (NEGATIVE) 05/28/22 12:07 Urine Ketones 15 mg/dL (NEGATIVE) H 05/28/22 12:07 Urine Occult Blood LARGE (NEGATIVE) H 05/28/22 12:07 Urine Nitrite NEGATIVE (NEGATIVE) 05/28/22 12:07 Urine Bilirubin NEGATIVE (NEGATIVE) 05/28/22 12:07 Urine Urobilinogen 1 (NORMAL) E.U./dL (NORMAL) 05/28/22 12:07 Ur Leukocyte Esterase NEGATIVE (NEGATIVE) 05/28/22 12:07 Urine RBC TNTC /HPF (0-5) H 05/28/22 12:07 Urine WBC 6-10 /HPF (0-3) H 05/28/22 12:07 Ur Epithelial Cells MOD Transitional /HPF (<= Few) H 05/28/22 12:07 Ur Squamous Epith Cells FEW Squamous (<= Few) 05/28/22 12:07 Urine Bacteria Few /HPF (None Seen) 05/28/22 12:07 Urine Casts 6-10 Hyaline Casts /LPF 05/28/22 12:07 Ur Microscopic Review INDICATED 05/28/22 12:07 Urine Culture Comments NOT INDICATED 05/28/22 12:07 Coronavirus (PCR) NEGATIVE 05/29/22 14:20 - Procedures Procedures: Procedures ENDO RECTUM POLYPECTOMY (04/27/15) ENDOSC POLYPECTOMY OF LG INTEST (04/27/15) EXCISION OF ASCENDING COLON, ENDO, DIAGN (05/02/17) EXCISION OF DESCENDING COLON, ENDO, DIAGN (05/02/17) EXCISION OF LEFT LOWER LEG SKIN, EXTERNAL APPROACH, DIAGN (11/16/20) EXCISION OF TRANSVERSE COLON, ENDO, DIAGN (05/02/17)
[2022-07-05] MEDS: MORPHINE IR 15 MG TABLET PO SCH ×3 (07:06→21:33)
[2022-07-05] MEDS: MULTIVITAMIN W/MINERALS TABLET PO SCH (08:43)
[2022-07-05] MEDS: SENNA 8.6 MG TABLET PO SCH ×2 (08:43→21:34)
[2022-07-05] MEDS: DOCUSATE SODIUM 250 MG CAPSULE PO SCH ×2 (08:43→21:34)
[2022-07-05] MEDS: polyethylene glycoL 3350 17 GM PACKET PO SCH (08:43)
[2022-07-05] MEDS: SACCHAROMYCES BOULARDII 250 MG CAPSULE PO SCH ×2 (08:43→17:01)
[2022-07-05] MEDS: oxyCODONE 10 MG/0.5 ML SYRINGE PO PRN ×2 (08:44→12:47)
[2022-07-05] MEDS: ENOXAPARIN 40 MG/0.4 ML SYRINGE SUBQ SCH (08:44)
[2022-07-05] MEDS ORDERED: [UNRECOGNIZED DRUG - OTHER] IM ONE (10:33)
[2022-07-05] MEDS: PSYLLIUM PACKET PO PRN (12:46)
--- NOTE | 2022-07-05 16:29 | PROVIDER PROGRESS NOTE ---
Assessment/Plan - Problem List (1) Metastatic lung cancer (metastasis from lung to other site) Qualifiers: Qualified Code(s): C34.90 - Malignant neoplasm of unspecified part of unspecified bronchus or lung Assessment/Plan: He has a lung neoplasm in the right lower lung. This tumor is eroding into his R rib cage (and you can actually put your finger on the outside of his chest wall to feel it). He has had a profound decrease in functional status, has cachexia, and had near immobility when he came into the hospital. He has improved in that he is now eating, gained a little weight, and is able to get up and move around the room a bit, and worked with PT and OT and met the goals. He lived alone and therefore he can no longer be safely discharged to there. He was started on scheduled oral morphine tid, which made him very sleepy. Hospitalist decreased the dose to bid on 06/21/22. Also, Oxycodone is available prn. Because of worsening fatigue and somnolence, today I will decrease the dose of oral morphine, but keep it twice daily. We had to increase morphine immediate release back to 3 times daily from twice daily. (2) Fatigue Better pain control. He did not want a get out of bed for his meals. Said he was too tired. He was on 3 times daily scheduled morphine so we reduced to twice daily. Fatigue really did not get much better and pain got worse. So we increased the morphine to 3 times daily again. I think the fatigue is just a dwindling, and the cancer of his lung must be progressing. (3) Severe protein calorie malnutrition He has severe protein calorie malnutrition, but overall we think he will succumb to his neoplasm. We checked routine labs on 06/30, since none had been done for over a week, and they were all stable. No intervention. (4) Cognitive impairment He has cognitive impairment that renders him unable to make his own decisions. He lived alone and therefore can no longer be safely discharged to there. We are awaiting an emergency guardianship to be established to make [facility] location plans, going forward for this gentleman. He would like to be in Hospice. The last Hospitalist did speak to an deputy commonwealth's attorney on 06/13/22, who is pursuing this whole process with the hospital. SW has said that his grand-nephew recently said he would be available to be guardian. That hospitalist spoke to the same deputy commonwealth's attorney 06/25 and emergency guardianship with "grandson" by name (not legal) Miquel is being considered for POA. Working on a court appointed guardian. Meanwhile ALBERTO has been looking for an SENIOR LIVING for him to go to, and today a facility requested that PT and OT instruct him on passive ROM, and document that encounter. This was done. We will order a Flu shot (for adult >65 y/o) as requested by an [facility]. - Current Meds Current Meds: Current Medications Generic Name Dose Route Start Last Admin Trade Name Freq PRN Reason Stop Dose Admin Acetaminophen 650 mg 05/29/22 14:15 07/04/22 07:43 Acetaminophen 325 Mg Tablet PO 650 mg Q4HR PRN Administration Pain 1 to 4, or Fever Docusate Sodium 250 - 500 mg 07/04/22 21:00 07/05/22 08:43 Docusate Sodium 250 Mg Capsule PO 250 mg BID MICHAELA Administration Enoxaparin Sodium 40 mg 05/30/22 09:00 07/05/22 08:44 Enoxaparin 40 Mg/0.4 Ml Syringe SUBQ 40 mg DAILY MICHAELA Administration Morphine Sulfate 7.5 mg 06/30/22 22:00 07/05/22 14:39 Morphine Ir 15 Mg Tablet PO 7.5 mg TID MICHAELA Administration Multi-Ingredient Ointment 1 applic 05/30/22 22:39 06/27/22 20:49 Zinc Oxide 20% Oint 30 Gm Tube TOP 1 applic PRN PRN Administration Skin Care Multivitamins/Minerals 1 tab 05/30/22 11:00 07/05/22 08:43 Multivitamin W/Minerals Tablet PO 1 tab DAILYWM MICHAELA Administration Oxycodone HCl 5 mg 06/23/22 09:56 07/05/22 12:47 Oxycodone 10 Mg/0.5 Ml Syringe PO 5 mg Q4HR PRN Administration PAIN Polyethylene Glycol 17 gm 05/30/22 09:00 07/05/22 08:43 Polyethylene Glycol 3350 17 Gm Packet PO 17 gm DAILY MICHAELA Administration Psyllium Hydrophilic Mucilloid 1 packet 06/21/22 08:53 07/05/22 12:46 Psyllium Packet PO 1 packet DAILY PRN Administration Constipation Saccharomyces Boulardii 250 mg 06/21/22 17:00 07/05/22 08:43 Saccharomyces [place] 250 Mg Capsule PO 250 mg BIDWM MICHAELA Administration Senna 8.6 - 17.2 mg 07/04/22 17:00 07/05/22 08:43 Senna 8.6 Mg Tablet PO 17.2 mg BID MICHAELA Administration - Lab Result Fish Bone Diagrams: 06/29/22 05:04 06/29/22 05:04 - Additional Planning My Orders: My Active Orders 07/04/22 17:00 Senna [Senokot] 8.6 - 17.2 mg PO BID 07/04/22 21:00 Docusate Sodium 250Mg Capsule [Colace 250Mg Capsule] 250 - 500 mg PO BID Subjective - Subjective Patient Reports: Resting Comfortably, No Complaints Objective Vital Signs: Vital Signs - 24 hr 07/05/22 07/05/22 09:28 16:23 Temperature 36.4 C L 36.6 C Heart Rate [ 59 L 63 Brachial] Respiratory 16 16 Rate Blood Pressure 95/51 L 104/43 L [Right Brachial artery] O2 Saturation 95 95 Oxygen O2 Source Room air I&O (Last 24 Hrs): Intake and Output Totals x24h 07/03/22 07/04/22 07/05/22 23:59 23:59 23:59 Intake Total 1020 880 480 Output Total 550 825 400 Balance 470 55 80 General: Other (Sleepy) HEENT: Mucous membr. moist/pink Neck: Supple, No JVD Neuro: Alert (Sleepy but awakens), Non Focal Cardiovascular: Regular rate Respiratory: No respiratory distress Abdomen: Soft Extremities: No edema - Results Results: Laboratory Results WBC 9.0 x10^3/uL (4.8-10.8) 06/29/22 05:04 RBC 3.37 10^6/uL (4.70-6.10) L 06/29/22 05:04 Hgb 8.4 g/dL (14.0-18.0) L 06/29/22 05:04 Hct 28.6 % (42.0-52.0) L 06/29/22 05:04 MCV 84.9 fL (80.0-94.0) 06/29/22 05:04 MCH 24.9 pg (27.0-31.0) L 06/29/22 05:04 MCHC 29.4 g/dL (32.0-36.0) L 06/29/22 05:04 RDW 16.0 % (12.0-15.0) H 06/29/22 05:04 Plt Count 404 10^3/uL (130-450) 06/29/22 05:04 MPV 8.9 fL (7.4-11.4) 06/29/22 05:04 Neut # (Auto) 6.1 10^3/uL (1.5-6.6) 06/29/22 05:04 Lymph # (Auto) 1.4 10^3/uL (1.5-3.5) L 06/29/22 05:04 [place] # (Auto) 1.2 10^3/uL (0.0-1.0) H 06/29/22 05:04 Eos # (Auto) 0.1 10^3/uL (0.0-0.7) 06/29/22 05:04 Baso # (Auto) 0.1 10^3/uL (0.0-0.1) 06/29/22 05:04 Absolute Nucleated RBC 0.00 x10^3/uL 06/29/22 05:04 Nucleated RBC % 0.0 /100WBC 06/29/22 05:04 PT 13.8 secs (9.9-12.6) H 05/30/22 04:50 INR 1.3 (0.8-1.2) H 05/30/22 04:50 Sodium 135 mmol/L (135-145) 06/29/22 05:04 Potassium 4.5 mmol/L (3.5-5.0) 06/29/22 05:04 Chloride 99 mmol/L (101-111) L 06/29/22 05:04 Carbon Dioxide 28 mmol/L (21-32) 06/29/22 05:04 Anion Gap 8.0 (6-13) 06/29/22 05:04 BUN 24 mg/dL (6-20) H 06/29/22 05:04 Creatinine 0.6 mg/dL (0.6-1.2) 06/29/22 05:04 Estimated GFR (MDRD) 129 (>89) 06/29/22 05:04 Glucose 95 mg/dL (70-100) 06/29/22 05:04 Calcium 8.9 mg/dL (8.5-10.3) 06/29/22 05:04 Phosphorus 1.1 mg/dL (2.5-4.6) L 05/30/22 04:50 Magnesium 2.1 mg/dL (1.7-2.8) 06/07/22 05:01 Total Bilirubin 0.8 mg/dL (0.2-1.0) 05/29/22 06:20 AST 20 IU/L (10-42) 05/29/22 06:20 ALT 17 IU/L (10-60) 05/29/22 06:20 Alkaline Phosphatase 58 IU/L (42-121) 05/29/22 06:20 Total Creatine Kinase 87 IU/L (22-269) 05/28/22 11:50 Total Protein 6.4 g/dL (6.7-8.2) L 05/29/22 06:20 Albumin 2.5 g/dL (3.2-5.5) L 05/29/22 06:20 Globulin 3.9 g/dL (2.1-4.2) 05/29/22 06:20 Albumin/Globulin Ratio 0.6 (1.0-2.2) L 05/29/22 06:20 Lipase 35 U/L (22-51) 05/29/22 06:20 TSH 2.68 uIU/mL (0.34-5.60) 05/30/22 04:50 Urine Color DARK YELLOW 05/28/22 12:07 Urine Clarity CLEAR (CLEAR) 05/28/22 12:07 Urine pH 6.0 PH (5.0-7.5) 05/28/22 12:07 Ur Specific [place] 1.025 (1.002-1.030) 05/28/22 12:07 Urine Protein 30 mg/dL (NEGATIVE) H 05/28/22 12:07 Urine Glucose (UA) NEGATIVE mg/dL (NEGATIVE) 05/28/22 12:07 Urine Ketones 15 mg/dL (NEGATIVE) H 05/28/22 12:07 Urine Occult Blood LARGE (NEGATIVE) H 05/28/22 12:07 Urine Nitrite NEGATIVE (NEGATIVE) 05/28/22 12:07 Urine Bilirubin NEGATIVE (NEGATIVE) 05/28/22 12:07 Urine Urobilinogen 1 (NORMAL) E.U./dL (NORMAL) 05/28/22 12:07 Ur Leukocyte Esterase NEGATIVE (NEGATIVE) 05/28/22 12:07 Urine RBC TNTC /HPF (0-5) H 05/28/22 12:07 Urine WBC 6-10 /HPF (0-3) H 05/28/22 12:07 Ur Epithelial Cells MOD Transitional /HPF (<= Few) H 05/28/22 12:07 Ur Squamous Epith Cells FEW Squamous (<= Few) 05/28/22 12:07 Urine Bacteria Few /HPF (None Seen) 05/28/22 12:07 Urine Casts 6-10 Hyaline Casts /LPF 05/28/22 12:07 Ur Microscopic Review INDICATED 05/28/22 12:07 Urine Culture Comments NOT INDICATED 05/28/22 12:07 Coronavirus (PCR) NEGATIVE 05/29/22 14:20 - Procedures Procedures: Procedures ENDO RECTUM POLYPECTOMY (04/27/15) ENDOSC POLYPECTOMY OF LG INTEST (04/27/15) EXCISION OF ASCENDING COLON, ENDO, DIAGN (05/02/17) EXCISION OF DESCENDING COLON, ENDO, DIAGN (05/02/17) EXCISION OF LEFT LOWER LEG SKIN, EXTERNAL APPROACH, DIAGN (11/16/20) EXCISION OF TRANSVERSE COLON, ENDO, DIAGN (05/02/17)
[2022-07-06] MEDS: MORPHINE IR 15 MG TABLET PO SCH ×3 (06:57→21:09)
[2022-07-06] MEDS: SACCHAROMYCES BOULARDII 250 MG CAPSULE PO SCH ×2 (08:49→17:07)
[2022-07-06] MEDS: SENNA 8.6 MG TABLET PO SCH ×2 (08:49→21:10)
[2022-07-06] MEDS: MULTIVITAMIN W/MINERALS TABLET PO SCH (08:49)
[2022-07-06] MEDS: DOCUSATE SODIUM 250 MG CAPSULE PO SCH ×2 (08:49→21:09)
[2022-07-06] MEDS: polyethylene glycoL 3350 17 GM PACKET PO SCH (08:49)
[2022-07-06] MEDS: ENOXAPARIN 40 MG/0.4 ML SYRINGE SUBQ SCH (08:50)
--- NOTE | 2022-07-06 10:50 | PROVIDER PROGRESS NOTE ---
Assessment/Plan - Problem List (1) Metastatic lung cancer (metastasis from lung to other site) Qualifiers: Qualified Code(s): C34.90 - Malignant neoplasm of unspecified part of unspecified bronchus or lung Assessment/Plan: He has a lung neoplasm in the right lower lung. This tumor is eroding into his R rib cage (and you can actually put your finger on the outside of his chest wall to feel it). He has had a profound decrease in functional status, has cachexia, and had near immobility when he came into the hospital. He has improved in that he is now eating, gained a little weight, and is able to get up and move around the room a bit, and worked with PT and OT and met the goals. He lived alone and therefore he can no longer be safely discharged to there. He was started on scheduled oral morphine tid, which made him very sleepy. Hospitalist decreased the dose to bid on 06/21/22. Also, Oxycodone is available prn. Because of worsening fatigue and somnolence, today I will decrease the dose of oral morphine, but keep it twice daily. We had to increase morphine immediate release back to 3 times daily from twice daily. (2) Fatigue Better pain control. He did not want a get out of bed for his meals. Said he was too tired. He was on 3 times daily scheduled morphine so we reduced to twice daily. Fatigue really did not get much better and pain got worse. So we increased the morphine to 3 times daily again. I think the fatigue is just a dwindling, and the cancer of his lung must be progressing. (3) Severe protein calorie malnutrition He has severe protein calorie malnutrition, but overall we think he will succumb to his neoplasm. We checked routine labs on 06/30, since none had been done for over a week, and they were all stable. No intervention. (4) Cognitive impairment He has cognitive impairment that renders him unable to make his own decisions. He lived alone and therefore can no longer be safely discharged to there. We are awaiting an emergency guardianship to be established to make [facility] location plans, going forward for this gentleman. He would like to be in Hospice. The last Hospitalist did speak to an estate attorney on 06/13/22, who is pursuing this whole process with the hospital. SW has said that his grand-nephew recently said he would be available to be guardian. That hospitalist spoke to the same estate attorney 06/25 and emergency guardianship with "grandson" by name (not legal) Miquel is being considered for POA. Working on a court appointed guardian. Meanwhile ALBERTO has been looking for an [facility] for him to go to, and today a facility requested that PT and OT instruct him on passive ROM, and document that encounter. This was done. We ordered a Flu shot (for adult >65 y/o) as requested by an [facility]. This was done yesterday. - Current Meds Current Meds: Current Medications Generic Name Dose Route Start Last Admin Trade Name Freq PRN Reason Stop Dose Admin Acetaminophen 650 mg 05/29/22 14:15 07/04/22 07:43 Acetaminophen 325 Mg Tablet PO 650 mg Q4HR PRN Administration Pain 1 to 4, or Fever Docusate Sodium 250 - 500 mg 07/04/22 21:00 07/06/22 08:49 Docusate Sodium 250 Mg Capsule PO 250 mg BID MICHAELA Administration Enoxaparin Sodium 40 mg 05/30/22 09:00 07/06/22 08:50 Enoxaparin 40 Mg/0.4 Ml Syringe SUBQ 40 mg DAILY MICHAELA Administration Morphine Sulfate 7.5 mg 06/30/22 22:00 07/06/22 06:57 Morphine Ir 15 Mg Tablet PO 7.5 mg TID MICHAELA Administration Multi-Ingredient Ointment 1 applic 05/30/22 22:39 06/27/22 20:49 Zinc Oxide 20% Oint 30 Gm Tube TOP 1 applic PRN PRN Administration Skin Care Multivitamins/Minerals 1 tab 05/30/22 11:00 07/06/22 08:49 Multivitamin W/Minerals Tablet PO 1 tab DAILYWM MICHAELA Administration Oxycodone HCl 5 mg 06/23/22 09:56 07/05/22 12:47 Oxycodone 10 Mg/0.5 Ml Syringe PO 5 mg Q4HR PRN Administration PAIN Polyethylene Glycol 17 gm 05/30/22 09:00 07/06/22 08:49 Polyethylene Glycol 3350 17 Gm Packet PO 17 gm DAILY MICHAELA Administration Psyllium Hydrophilic Mucilloid 1 packet 06/21/22 08:53 07/05/22 12:46 Psyllium Packet PO 1 packet DAILY PRN Administration Constipation Saccharomyces Boulardii 250 mg 06/21/22 17:00 07/06/22 08:49 Saccharomyces Harishdii 250 Mg Capsule PO 250 mg BIDWM MICHAELA Administration Senna 8.6 - 17.2 mg 07/04/22 17:00 07/06/22 08:49 Senna 8.6 Mg Tablet PO 8.6 mg BID MICHAELA Administration - Lab Result Fish Bone Diagrams: 06/29/22 05:04 06/29/22 05:04 Subjective - Subjective Patient Reports: Resting Comfortably, No Complaints Nursing Reports: Other (Marco Antonio alsharon) Objective Vital Signs: Vital Signs - 24 hr 07/05/22 07/06/22 16:23 08:28 Temperature 36.6 C 36.5 C Heart Rate [ 63 61 Brachial] Respiratory 16 20 Rate Blood Pressure 104/43 L 98/43 L [Right Brachial artery] O2 Saturation 95 95 Oxygen O2 Source Room air I&O (Last 24 Hrs): Intake and Output Totals x24h 07/04/22 07/05/22 07/06/22 23:59 23:59 23:59 Intake Total 880 970 200 Output Total 825 575 200 Balance 55 395 0 General: Alert (Sleeping, but awakens) HEENT: Mucous membr. moist/pink Neck: Supple Neuro: Alert, Non Focal Cardiovascular: Regular rate Respiratory: No respiratory distress Abdomen: Soft Extremities: No edema - Results Results: Laboratory Results WBC 9.0 x10^3/uL (4.8-10.8) 06/29/22 05:04 RBC 3.37 10^6/uL (4.70-6.10) L 06/29/22 05:04 Hgb 8.4 g/dL (14.0-18.0) L 06/29/22 05:04 Hct 28.6 % (42.0-52.0) L 06/29/22 05:04 MCV 84.9 fL (80.0-94.0) 06/29/22 05:04 MCH 24.9 pg (27.0-31.0) L 06/29/22 05:04 MCHC 29.4 g/dL (32.0-36.0) L 06/29/22 05:04 RDW 16.0 % (12.0-15.0) H 06/29/22 05:04 Plt Count 404 10^3/uL (130-450) 06/29/22 05:04 MPV 8.9 fL (7.4-11.4) 06/29/22 05:04 Neut # (Auto) 6.1 10^3/uL (1.5-6.6) 06/29/22 05:04 Lymph # (Auto) 1.4 10^3/uL (1.5-3.5) L 06/29/22 05:04 Hand # (Auto) 1.2 10^3/uL (0.0-1.0) H 06/29/22 05:04 Eos # (Auto) 0.1 10^3/uL (0.0-0.7) 06/29/22 05:04 Baso # (Auto) 0.1 10^3/uL (0.0-0.1) 06/29/22 05:04 Absolute Nucleated RBC 0.00 x10^3/uL 06/29/22 05:04 Nucleated RBC % 0.0 /100WBC 06/29/22 05:04 PT 13.8 secs (9.9-12.6) H 05/30/22 04:50 INR 1.3 (0.8-1.2) H 05/30/22 04:50 Sodium 135 mmol/L (135-145) 06/29/22 05:04 Potassium 4.5 mmol/L (3.5-5.0) 06/29/22 05:04 Chloride 99 mmol/L (101-111) L 06/29/22 05:04 Carbon Dioxide 28 mmol/L (21-32) 06/29/22 05:04 Anion Gap 8.0 (6-13) 06/29/22 05:04 BUN 24 mg/dL (6-20) H 06/29/22 05:04 Creatinine 0.6 mg/dL (0.6-1.2) 06/29/22 05:04 Estimated GFR (MDRD) 129 (>89) 06/29/22 05:04 Glucose 95 mg/dL (70-100) 06/29/22 05:04 Calcium 8.9 mg/dL (8.5-10.3) 06/29/22 05:04 Phosphorus 1.1 mg/dL (2.5-4.6) L 05/30/22 04:50 Magnesium 2.1 mg/dL (1.7-2.8) 06/07/22 05:01 Total Bilirubin 0.8 mg/dL (0.2-1.0) 05/29/22 06:20 AST 20 IU/L (10-42) 05/29/22 06:20 ALT 17 IU/L (10-60) 05/29/22 06:20 Alkaline Phosphatase 58 IU/L (42-121) 05/29/22 06:20 Total Creatine Kinase 87 IU/L (22-269) 05/28/22 11:50 Total Protein 6.4 g/dL (6.7-8.2) L 05/29/22 06:20 Albumin 2.5 g/dL (3.2-5.5) L 05/29/22 06:20 Globulin 3.9 g/dL (2.1-4.2) 05/29/22 06:20 Albumin/Globulin Ratio 0.6 (1.0-2.2) L 05/29/22 06:20 Lipase 35 U/L (22-51) 05/29/22 06:20 TSH 2.68 uIU/mL (0.34-5.60) 05/30/22 04:50 Urine Color DARK YELLOW 05/28/22 12:07 Urine Clarity CLEAR (CLEAR) 05/28/22 12:07 Urine pH 6.0 PH (5.0-7.5) 05/28/22 12:07 Ur Specific [place] 1.025 (1.002-1.030) 05/28/22 12:07 Urine Protein 30 mg/dL (NEGATIVE) H 05/28/22 12:07 Urine Glucose (UA) NEGATIVE mg/dL (NEGATIVE) 05/28/22 12:07 Urine Ketones 15 mg/dL (NEGATIVE) H 05/28/22 12:07 Urine Occult Blood LARGE (NEGATIVE) H 05/28/22 12:07 Urine Nitrite NEGATIVE (NEGATIVE) 05/28/22 12:07 Urine Bilirubin NEGATIVE (NEGATIVE) 05/28/22 12:07 Urine Urobilinogen 1 (NORMAL) E.U./dL (NORMAL) 05/28/22 12:07 Ur Leukocyte Esterase NEGATIVE (NEGATIVE) 05/28/22 12:07 Urine RBC TNTC /HPF (0-5) H 05/28/22 12:07 Urine WBC 6-10 /HPF (0-3) H 05/28/22 12:07 Ur Epithelial Cells MOD Transitional /HPF (<= Few) H 05/28/22 12:07 Ur Squamous Epith Cells FEW Squamous (<= Few) 05/28/22 12:07 Urine Bacteria Few /HPF (None Seen) 05/28/22 12:07 Urine Casts 6-10 Hyaline Casts /LPF 05/28/22 12:07 Ur Microscopic Review INDICATED 05/28/22 12:07 Urine Culture Comments NOT INDICATED 05/28/22 12:07 Coronavirus (PCR) NEGATIVE 05/29/22 14:20 - Procedures Procedures: Procedures ENDO RECTUM POLYPECTOMY (04/27/15) ENDOSC POLYPECTOMY OF LG INTEST (04/27/15) EXCISION OF ASCENDING COLON, ENDO, DIAGN (05/02/17) EXCISION OF DESCENDING COLON, ENDO, DIAGN (05/02/17) EXCISION OF LEFT LOWER LEG SKIN, EXTERNAL APPROACH, DIAGN (11/16/20) EXCISION OF TRANSVERSE COLON, ENDO, DIAGN (05/02/17)
[2022-07-07] MEDS: MORPHINE IR 15 MG TABLET PO SCH ×3 (06:43→21:04)
[2022-07-07] MEDS: MULTIVITAMIN W/MINERALS TABLET PO SCH (08:23)
[2022-07-07] MEDS: ENOXAPARIN 40 MG/0.4 ML SYRINGE SUBQ SCH (08:23)
[2022-07-07] MEDS: SACCHAROMYCES BOULARDII 250 MG CAPSULE PO SCH ×2 (08:23→16:57)
[2022-07-07] MEDS: SENNA 8.6 MG TABLET PO SCH ×2 (08:23→21:04)
[2022-07-07] MEDS: polyethylene glycoL 3350 17 GM PACKET PO SCH (08:23)
[2022-07-07] MEDS: DOCUSATE SODIUM 250 MG CAPSULE PO SCH ×2 (08:23→21:04)
[2022-07-07] MEDS: ACETAMINOPHEN 325 MG TABLET PO PRN (12:21)
[2022-07-07] MEDS: oxyCODONE 10 MG/0.5 ML SYRINGE PO PRN (12:22)
--- NOTE | 2022-07-07 14:46 | PROVIDER PROGRESS NOTE ---
Assessment/Plan - Problem List (1) Metastatic lung cancer (metastasis from lung to other site) Qualifiers: Qualified Code(s): C34.90 - Malignant neoplasm of unspecified part of unspecified bronchus or lung Assessment/Plan: He has a lung neoplasm in the right lower lung. This tumor is eroding into his R rib cage (and you can actually put your finger on the outside of his chest wall to feel it). He has had a profound decrease in functional status, has cachexia, and had near immobility when he came into the hospital. He has improved in that he is now eating, gained a little weight, and is able to get up and move around the room a bit, and worked with PT and OT and met the goals. He lived alone and therefore he can no longer be safely discharged to there. He was started on scheduled oral morphine tid, which made him very sleepy. Hospitalist decreased the dose to bid on 06/21/22. Also, Oxycodone is available prn. Because of worsening fatigue and somnolence, today I will decrease the dose of oral morphine, but keep it twice daily. We had to increase morphine immediate release back to 3 times daily from twice daily. (2) Fatigue Better pain control. He did not want a get out of bed for his meals. Said he was too tired. He was on 3 times daily scheduled morphine so we reduced to twice daily. Fatigue really did not get much better and pain got worse. So we increased the morphine to 3 times daily again. I think the fatigue is just a dwindling, and the cancer of his lung must be progressing. (3) Severe protein calorie malnutrition He has severe protein calorie malnutrition, but overall we think he will succumb to his neoplasm. We checked routine labs on 06/30, since none had been done for over a week, and they were all stable. No intervention. (4) Cognitive impairment He has cognitive impairment that renders him unable to make his own decisions. He lived alone and therefore can no longer be safely discharged to there. We are awaiting an emergency guardianship to be established to make [facility] location plans, going forward for this gentleman. He would like to be in Hospice. The last Hospitalist did speak to an deputy attorney general on 06/13/22, who is pursuing this whole process with the hospital. SW has said that his grand-nephew recently said he would be available to be guardian. That hospitalist spoke to the same deputy attorney general 06/25 and emergency guardianship with "grandson" by name (not legal) Miquel is being considered for POA. Working on a court appointed guardian. Meanwhile ALBERTO has been looking for an [facility] for him to go to, and today a facility requested that PT and OT instruct him on passive ROM, and document that encounter. This was done. We ordered a Flu shot (for adult >65 y/o) as requested by an [facility]. He got the Flu shot on 07/05. - Current Meds Current Meds: Current Medications Generic Name Dose Route Start Last Admin Trade Name Freq PRN Reason Stop Dose Admin Acetaminophen 650 mg 05/29/22 14:15 07/07/22 12:21 Acetaminophen 325 Mg Tablet PO 650 mg Q4HR PRN Administration Pain 1 to 4, or Fever Docusate Sodium 250 - 500 mg 07/04/22 21:00 07/07/22 08:23 Docusate Sodium 250 Mg Capsule PO 250 mg BID MICHAELA Administration Enoxaparin Sodium 40 mg 05/30/22 09:00 07/07/22 08:23 Enoxaparin 40 Mg/0.4 Ml Syringe SUBQ 40 mg DAILY MICHAELA Administration Morphine Sulfate 7.5 mg 06/30/22 22:00 07/07/22 14:17 Morphine Ir 15 Mg Tablet PO 7.5 mg TID MICHAELA Administration Multi-Ingredient Ointment 1 applic 05/30/22 22:39 06/27/22 20:49 Zinc Oxide 20% Oint 30 Gm Tube TOP 1 applic PRN PRN Administration Skin Care Multivitamins/Minerals 1 tab 05/30/22 11:00 07/07/22 08:23 Multivitamin W/Minerals Tablet PO 1 tab DAILYWM MICHAELA Administration Oxycodone HCl 5 mg 06/23/22 09:56 07/07/22 12:22 Oxycodone 10 Mg/0.5 Ml Syringe PO 5 mg Q4HR PRN Administration PAIN Polyethylene Glycol 17 gm 05/30/22 09:00 07/07/22 08:23 Polyethylene Glycol 3350 17 Gm Packet PO 17 gm DAILY MICHAELA Administration Psyllium Hydrophilic Mucilloid 1 packet 06/21/22 08:53 07/05/22 12:46 Psyllium Packet PO 1 packet DAILY PRN Administration Constipation Saccharomyces Boulardii 250 mg 06/21/22 17:00 07/07/22 08:23 Saccharomyces Boulardii 250 Mg Capsule PO 250 mg BIDWM MICHAELA Administration Senna 8.6 - 17.2 mg 07/04/22 17:00 07/07/22 08:23 Senna 8.6 Mg Tablet PO 8.6 mg BID MICHAELA Administration - Lab Result Fish Bone Diagrams: 06/29/22 05:04 06/29/22 05:04 Subjective - Subjective Patient Reports: Pain (A dose of scheduled Morphine was "skipped" so more pain today) Objective Vital Signs: Vital Signs - 24 hr 07/06/22 07/07/22 16:01 08:04 Temperature 36.5 C 36.5 C Heart Rate [ 65 62 Brachial] Respiratory 16 24 Rate Blood Pressure 97/43 L 100/51 L [Right Brachial artery] O2 Saturation 94 93 Oxygen O2 Source Room air I&O (Last 24 Hrs): Intake and Output Totals x24h 07/05/22 07/06/22 07/07/22 23:59 23:59 23:59 Intake Total 970 1200 640 Output Total 575 650 450 Balance 395 550 190 General: Alert, Oriented x3 HEENT: Mucous membr. moist/pink, Other (Pale) Neck: Supple Neuro: Alert, Non Focal, Other ([place] POSTA) Cardiovascular: Regular rate Respiratory: No respiratory distress Abdomen: Soft Extremities: No edema - Results Results: Laboratory Results WBC 9.0 x10^3/uL (4.8-10.8) 06/29/22 05:04 RBC 3.37 10^6/uL (4.70-6.10) L 06/29/22 05:04 Hgb 8.4 g/dL (14.0-18.0) L 06/29/22 05:04 Hct 28.6 % (42.0-52.0) L 06/29/22 05:04 MCV 84.9 fL (80.0-94.0) 06/29/22 05:04 MCH 24.9 pg (27.0-31.0) L 06/29/22 05:04 MCHC 29.4 g/dL (32.0-36.0) L 06/29/22 05:04 RDW 16.0 % (12.0-15.0) H 06/29/22 05:04 Plt Count 404 10^3/uL (130-450) 06/29/22 05:04 MPV 8.9 fL (7.4-11.4) 06/29/22 05:04 Neut # (Auto) 6.1 10^3/uL (1.5-6.6) 06/29/22 05:04 Lymph # (Auto) 1.4 10^3/uL (1.5-3.5) L 06/29/22 05:04 [place] # (Auto) 1.2 10^3/uL (0.0-1.0) H 06/29/22 05:04 Eos # (Auto) 0.1 10^3/uL (0.0-0.7) 06/29/22 05:04 Baso # (Auto) 0.1 10^3/uL (0.0-0.1) 06/29/22 05:04 Absolute Nucleated RBC 0.00 x10^3/uL 06/29/22 05:04 Nucleated RBC % 0.0 /100WBC 06/29/22 05:04 PT 13.8 secs (9.9-12.6) H 05/30/22 04:50 INR 1.3 (0.8-1.2) H 05/30/22 04:50 Sodium 135 mmol/L (135-145) 06/29/22 05:04 Potassium 4.5 mmol/L (3.5-5.0) 06/29/22 05:04 Chloride 99 mmol/L (101-111) L 06/29/22 05:04 Carbon Dioxide 28 mmol/L (21-32) 06/29/22 05:04 Anion Gap 8.0 (6-13) 06/29/22 05:04 BUN 24 mg/dL (6-20) H 06/29/22 05:04 Creatinine 0.6 mg/dL (0.6-1.2) 06/29/22 05:04 Estimated GFR (MDRD) 129 (>89) 06/29/22 05:04 Glucose 95 mg/dL (70-100) 06/29/22 05:04 Calcium 8.9 mg/dL (8.5-10.3) 06/29/22 05:04 Phosphorus 1.1 mg/dL (2.5-4.6) L 05/30/22 04:50 Magnesium 2.1 mg/dL (1.7-2.8) 06/07/22 05:01 Total Bilirubin 0.8 mg/dL (0.2-1.0) 05/29/22 06:20 AST 20 IU/L (10-42) 05/29/22 06:20 ALT 17 IU/L (10-60) 05/29/22 06:20 Alkaline Phosphatase 58 IU/L (42-121) 05/29/22 06:20 Total Creatine Kinase 87 IU/L (22-269) 05/28/22 11:50 Total Protein 6.4 g/dL (6.7-8.2) L 05/29/22 06:20 Albumin 2.5 g/dL (3.2-5.5) L 05/29/22 06:20 Globulin 3.9 g/dL (2.1-4.2) 05/29/22 06:20 Albumin/Globulin Ratio 0.6 (1.0-2.2) L 05/29/22 06:20 Lipase 35 U/L (22-51) 05/29/22 06:20 TSH 2.68 uIU/mL (0.34-5.60) 05/30/22 04:50 Urine Color DARK YELLOW 05/28/22 12:07 Urine Clarity CLEAR (CLEAR) 05/28/22 12:07 Urine pH 6.0 PH (5.0-7.5) 05/28/22 12:07 Ur Specific [place] 1.025 (1.002-1.030) 05/28/22 12:07 Urine Protein 30 mg/dL (NEGATIVE) H 05/28/22 12:07 Urine Glucose (UA) NEGATIVE mg/dL (NEGATIVE) 05/28/22 12:07 Urine Ketones 15 mg/dL (NEGATIVE) H 05/28/22 12:07 Urine Occult Blood LARGE (NEGATIVE) H 05/28/22 12:07 Urine Nitrite NEGATIVE (NEGATIVE) 05/28/22 12:07 Urine Bilirubin NEGATIVE (NEGATIVE) 05/28/22 12:07 Urine Urobilinogen 1 (NORMAL) E.U./dL (NORMAL) 05/28/22 12:07 Ur Leukocyte Esterase NEGATIVE (NEGATIVE) 05/28/22 12:07 Urine RBC TNTC /HPF (0-5) H 05/28/22 12:07 Urine WBC 6-10 /HPF (0-3) H 05/28/22 12:07 Ur Epithelial Cells MOD Transitional /HPF (<= Few) H 05/28/22 12:07 Ur Squamous Epith Cells FEW Squamous (<= Few) 05/28/22 12:07 Urine Bacteria Few /HPF (None Seen) 05/28/22 12:07 Urine Casts 6-10 Hyaline Casts /LPF 05/28/22 12:07 Ur Microscopic Review INDICATED 05/28/22 12:07 Urine Culture Comments NOT INDICATED 05/28/22 12:07 Coronavirus (PCR) NEGATIVE 05/29/22 14:20 - Procedures Procedures: Procedures ENDO RECTUM POLYPECTOMY (04/27/15) ENDOSC POLYPECTOMY OF LG INTEST (04/27/15) EXCISION OF ASCENDING COLON, ENDO, DIAGN (05/02/17) EXCISION OF DESCENDING COLON, ENDO, DIAGN (05/02/17) EXCISION OF LEFT LOWER LEG SKIN, EXTERNAL APPROACH, DIAGN (11/16/20) EXCISION OF TRANSVERSE COLON, ENDO, DIAGN (05/02/17)
[2022-07-08] MEDS: MORPHINE IR 15 MG TABLET PO SCH ×3 (06:32→21:00)
[2022-07-08] MEDS: SACCHAROMYCES BOULARDII 250 MG CAPSULE PO SCH ×2 (07:58→17:43)
[2022-07-08] MEDS: MULTIVITAMIN W/MINERALS TABLET PO SCH (07:58)
[2022-07-08] MEDS: polyethylene glycoL 3350 17 GM PACKET PO SCH (08:32)
[2022-07-08] MEDS: DOCUSATE SODIUM 250 MG CAPSULE PO SCH ×2 (08:32→20:59)
[2022-07-08] MEDS: ENOXAPARIN 40 MG/0.4 ML SYRINGE SUBQ SCH (08:32)
[2022-07-08] MEDS: SENNA 8.6 MG TABLET PO SCH ×2 (08:32→20:59)
--- NOTE | 2022-07-08 11:10 | PROVIDER PROGRESS NOTE ---
Assessment/Plan - Problem List (1) Metastatic lung cancer (metastasis from lung to other site) Qualifiers: Qualified Code(s): C34.90 - Malignant neoplasm of unspecified part of unspecified bronchus or lung Assessment/Plan: He has a lung neoplasm in the right lower lung. This tumor is eroding into his R rib cage (and you can actually put your finger on the outside of his chest wall to feel it). He has had a profound decrease in functional status, has cachexia, and had near immobility when he came into the hospital. He has improved in that he is now eating, gained a little weight, and is able to get up and move around the room a bit, and worked with PT and OT and met the goals. He lived alone and therefore he can no longer be safely discharged to there. He was started on scheduled oral morphine Oxycodone is also available prn. (2) Fatigue Better pain control. He didnot want a get out of bed for his meals, says he was too tired. He was on 3 times daily scheduled morphine so we reduced to twice daily. Fatigue really did not get much better and pain got worse. So we increased the morphine to 3 times daily again. I think the fatigue is just a dwindling, and the cancer of his lung must be progressing. (3) Severe protein calorie malnutrition He has severe protein calorie malnutrition, but overall we think he will succumb to his neoplasm. We checked routine labs on 06/30, since none had been done for over a week, and they were all stable. No intervention. (4) Cognitive impairment He has cognitive impairment that renders him unable to make his own decisions. He lived alone and therefore can no longer be safely discharged to there. We are awaiting an emergency guardianship to be established to make [facility] location plans, going forward for this gentleman. He would like to be in Hospice. The last Hospitalist did speak to an workers compensation attorney on 06/13/22, who is pursuing this whole process with the hospital. ALBERTO has said that his grand-nephew recently said he would be available to be guardian. That hospitalist spoke to the same workers compensation attorney 06/25 and emergency guardianship with "grandson" by name (not legal) Miquel is being considered for POA. Working on a court appointed guardian. Meanwhile ALBERTO has been looking for an SUGAR for him to go to, and a facility requested that PT and OT instruct him on passive ROM, and document that encounter. This was done. Also, we ordered a Flu shot (for adult >65 y/o) as requested by an PRISON. He got the Flu shot on 07/05. - Current Meds Current Meds: Current Medications Generic Name Dose Route Start Last Admin Trade Name Freq PRN Reason Stop Dose Admin Acetaminophen 650 mg 05/29/22 14:15 07/07/22 12:21 Acetaminophen 325 Mg Tablet PO 650 mg Q4HR PRN Administration Pain 1 to 4, or Fever Docusate Sodium 250 - 500 mg 07/04/22 21:00 07/08/22 08:32 Docusate Sodium 250 Mg Capsule PO 250 mg BID MICHAELA Administration Enoxaparin Sodium 40 mg 05/30/22 09:00 07/08/22 08:32 Enoxaparin 40 Mg/0.4 Ml Syringe SUBQ 40 mg DAILY MICHAELA Administration Morphine Sulfate 7.5 mg 06/30/22 22:00 07/08/22 06:32 Morphine Ir 15 Mg Tablet PO 7.5 mg TID MICHAELA Administration Multi-Ingredient Ointment 1 applic 05/30/22 22:39 06/27/22 20:49 Zinc Oxide 20% Oint 30 Gm Tube TOP 1 applic PRN PRN Administration Skin Care Multivitamins/Minerals 1 tab 05/30/22 11:00 07/08/22 07:58 Multivitamin W/Minerals Tablet PO 1 tab DAILYWM MICHAELA Administration Oxycodone HCl 5 mg 06/23/22 09:56 07/07/22 12:22 Oxycodone 10 Mg/0.5 Ml Syringe PO 5 mg Q4HR PRN Administration PAIN Polyethylene Glycol 17 gm 05/30/22 09:00 07/08/22 08:32 Polyethylene Glycol 3350 17 Gm Packet PO 17 gm DAILY MICHAELA Administration Psyllium Hydrophilic Mucilloid 1 packet 06/21/22 08:53 07/05/22 12:46 Psyllium Packet PO 1 packet DAILY PRN Administration Constipation Saccharomyces Boulardii 250 mg 06/21/22 17:00 07/08/22 07:58 Saccharomyces Boulardii 250 Mg Capsule PO 250 mg BIDWM MICHAELA Administration Senna 8.6 - 17.2 mg 07/04/22 17:00 07/08/22 08:32 Senna 8.6 Mg Tablet PO 8.6 mg BID MICHAELA Administration - Lab Result Fish Bone Diagrams: 06/29/22 05:04 06/29/22 05:04 Subjective - Subjective Patient Reports: Resting Comfortably (He is sitting up in wheelchair, eating his breakfast, is ALERT, animated and feels good) Objective Vital Signs: Vital Signs - 24 hr 07/07/22 07/08/22 15:35 07:54 Temperature 36.4 C L 36.7 C Heart Rate [ 62 65 Brachial] Respiratory 16 20 Rate Blood Pressure 101/50 L 116/53 L [Right Brachial artery] O2 Saturation 95 92 Oxygen O2 Source Room air I&O (Last 24 Hrs): Intake and Output Totals x24h 07/06/22 07/07/22 07/08/22 23:59 23:59 23:59 Intake Total 1200 1120 240 Output Total 650 650 425 Balance 550 470 -185 General: Alert, Oriented x3, No acute distress HEENT: Mucous membr. moist/pink Neck: Supple Neuro: Alert, Non Focal Cardiovascular: Regular rate Respiratory: No respiratory distress Abdomen: Soft Extremities: No clubbing, No edema - Results Results: Laboratory Results WBC 9.0 x10^3/uL (4.8-10.8) 06/29/22 05:04 RBC 3.37 10^6/uL (4.70-6.10) L 06/29/22 05:04 Hgb 8.4 g/dL (14.0-18.0) L 06/29/22 05:04 Hct 28.6 % (42.0-52.0) L 06/29/22 05:04 MCV 84.9 fL (80.0-94.0) 06/29/22 05:04 MCH 24.9 pg (27.0-31.0) L 06/29/22 05:04 MCHC 29.4 g/dL (32.0-36.0) L 06/29/22 05:04 RDW 16.0 % (12.0-15.0) H 06/29/22 05:04 Plt Count 404 10^3/uL (130-450) 06/29/22 05:04 MPV 8.9 fL (7.4-11.4) 06/29/22 05:04 Neut # (Auto) 6.1 10^3/uL (1.5-6.6) 06/29/22 05:04 Lymph # (Auto) 1.4 10^3/uL (1.5-3.5) L 06/29/22 05:04 Coleman # (Auto) 1.2 10^3/uL (0.0-1.0) H 06/29/22 05:04 Eos # (Auto) 0.1 10^3/uL (0.0-0.7) 06/29/22 05:04 Baso # (Auto) 0.1 10^3/uL (0.0-0.1) 06/29/22 05:04 Absolute Nucleated RBC 0.00 x10^3/uL 06/29/22 05:04 Nucleated RBC % 0.0 /100WBC 06/29/22 05:04 PT 13.8 secs (9.9-12.6) H 05/30/22 04:50 INR 1.3 (0.8-1.2) H 05/30/22 04:50 Sodium 135 mmol/L (135-145) 06/29/22 05:04 Potassium 4.5 mmol/L (3.5-5.0) 06/29/22 05:04 Chloride 99 mmol/L (101-111) L 06/29/22 05:04 Carbon Dioxide 28 mmol/L (21-32) 06/29/22 05:04 Anion Gap 8.0 (6-13) 06/29/22 05:04 BUN 24 mg/dL (6-20) H 06/29/22 05:04 Creatinine 0.6 mg/dL (0.6-1.2) 06/29/22 05:04 Estimated GFR (MDRD) 129 (>89) 06/29/22 05:04 Glucose 95 mg/dL (70-100) 06/29/22 05:04 Calcium 8.9 mg/dL (8.5-10.3) 06/29/22 05:04 Phosphorus 1.1 mg/dL (2.5-4.6) L 05/30/22 04:50 Magnesium 2.1 mg/dL (1.7-2.8) 06/07/22 05:01 Total Bilirubin 0.8 mg/dL (0.2-1.0) 05/29/22 06:20 AST 20 IU/L (10-42) 05/29/22 06:20 ALT 17 IU/L (10-60) 05/29/22 06:20 Alkaline Phosphatase 58 IU/L (42-121) 05/29/22 06:20 Total Creatine Kinase 87 IU/L (22-269) 05/28/22 11:50 Total Protein 6.4 g/dL (6.7-8.2) L 05/29/22 06:20 Albumin 2.5 g/dL (3.2-5.5) L 05/29/22 06:20 Globulin 3.9 g/dL (2.1-4.2) 05/29/22 06:20 Albumin/Globulin Ratio 0.6 (1.0-2.2) L 05/29/22 06:20 Lipase 35 U/L (22-51) 05/29/22 06:20 TSH 2.68 uIU/mL (0.34-5.60) 05/30/22 04:50 Urine Color DARK YELLOW 05/28/22 12:07 Urine Clarity CLEAR (CLEAR) 05/28/22 12:07 Urine pH 6.0 PH (5.0-7.5) 05/28/22 12:07 Ur Specific [place] 1.025 (1.002-1.030) 05/28/22 12:07 Urine Protein 30 mg/dL (NEGATIVE) H 05/28/22 12:07 Urine Glucose (UA) NEGATIVE mg/dL (NEGATIVE) 05/28/22 12:07 Urine Ketones 15 mg/dL (NEGATIVE) H 05/28/22 12:07 Urine Occult Blood LARGE (NEGATIVE) H 05/28/22 12:07 Urine Nitrite NEGATIVE (NEGATIVE) 05/28/22 12:07 Urine Bilirubin NEGATIVE (NEGATIVE) 05/28/22 12:07 Urine Urobilinogen 1 (NORMAL) E.U./dL (NORMAL) 05/28/22 12:07 Ur Leukocyte Esterase NEGATIVE (NEGATIVE) 05/28/22 12:07 Urine RBC TNTC /HPF (0-5) H 05/28/22 12:07 Urine WBC 6-10 /HPF (0-3) H 05/28/22 12:07 Ur Epithelial Cells MOD Transitional /HPF (<= Few) H 05/28/22 12:07 Ur Squamous Epith Cells FEW Squamous (<= Few) 05/28/22 12:07 Urine Bacteria Few /HPF (None Seen) 05/28/22 12:07 Urine Casts 6-10 Hyaline Casts /LPF 05/28/22 12:07 Ur Microscopic Review INDICATED 05/28/22 12:07 Urine Culture Comments NOT INDICATED 05/28/22 12:07 Coronavirus (PCR) NEGATIVE 05/29/22 14:20 - Procedures Procedures: Procedures ENDO RECTUM POLYPECTOMY (04/27/15) ENDOSC POLYPECTOMY OF LG INTEST (04/27/15) EXCISION OF ASCENDING COLON, ENDO, DIAGN (05/02/17) EXCISION OF DESCENDING COLON, ENDO, DIAGN (05/02/17) EXCISION OF LEFT LOWER LEG SKIN, EXTERNAL APPROACH, DIAGN (11/16/20) EXCISION OF TRANSVERSE COLON, ENDO, DIAGN (05/02/17)
[2022-07-08] MEDS: ACETAMINOPHEN 325 MG TABLET PO PRN (12:16)
[2022-07-08] MEDS: oxyCODONE 10 MG/0.5 ML SYRINGE PO PRN (12:16)
[2022-07-09] MEDS: MORPHINE IR 15 MG TABLET PO SCH ×4 (06:15→20:28)
[2022-07-09] MEDS: MULTIVITAMIN W/MINERALS TABLET PO SCH (08:14)
[2022-07-09] MEDS: SACCHAROMYCES BOULARDII 250 MG CAPSULE PO SCH ×2 (08:14→16:20)
[2022-07-09] MEDS: SENNA 8.6 MG TABLET PO SCH ×2 (08:14→20:28)
[2022-07-09] MEDS: DOCUSATE SODIUM 250 MG CAPSULE PO SCH ×2 (08:14→20:28)
[2022-07-09] MEDS: polyethylene glycoL 3350 17 GM PACKET PO SCH (08:15)
[2022-07-09] MEDS: ENOXAPARIN 40 MG/0.4 ML SYRINGE SUBQ SCH (08:15)
--- NOTE | 2022-07-09 16:20 | PROVIDER PROGRESS NOTE ---
Subjective - Prog Note Date Prog Note Date: 07/09/22 Prog Note Time: 16:20 - Subjective Subjective: We had had him on 3 times a day morphine. Then we felt he was too sedated and sleeping too much we decreased to twice daily. He did have improvement in a ttention, getting up out of bed. Sleeping less. But pain is been steadily progressive and will be back to 3 times a day morphine a little over a week ago. Today he tells me that the morphine does take effect. His pain goes down immediately when he takes it. Rather within 10 or 15 minutes. But then it does not last very long. Maybe last 1 or 2 hours and the pain comes back. Current Medications - Current Medications Current Medications: Active Medications Acetaminophen (Acetaminophen 325 Mg Tablet) 650 mg PO Q4HR PRN PRN Reason: Pain 1 to 4, or Fever Last Admin: 07/08/22 12:16 Dose: 650 mg Docusate Sodium (Docusate Sodium 250 Mg Capsule) 250 - 500 mg PO BID [facility] Last Admin: 07/09/22 08:14 Dose: 250 mg Enoxaparin Sodium (Enoxaparin 40 Mg/0.4 Ml Syringe) 40 mg SUBQ DAILY [facility] Last Admin: 07/09/22 08:15 Dose: 40 mg Morphine Sulfate (Morphine Ir 15 Mg Tablet) 7.5 mg PO QID [facility] Last Admin: 07/09/22 16:19 Dose: 7.5 mg Multi-Ingredient Ointment (Zinc Oxide 20% Oint 30 Gm Tube) 1 applic TOP PRN PRN PRN Reason: Skin Care Last Admin: 06/27/22 20:49 Dose: 1 applic Multivitamins/Minerals (Multivitamin W/Minerals Tablet) 1 tab PO DAILYWM [facility] Last Admin: 07/09/22 08:14 Dose: 1 tab Ondansetron HCl (Ondansetron Odt 4 Mg Tablet) 4 mg TL Q6HR PRN PRN Reason: Nausea / Vomiting Oxycodone HCl (Oxycodone 10 Mg/0.5 Ml Syringe) 5 mg PO Q4HR PRN PRN Reason: PAIN Last Admin: 07/08/22 12:16 Dose: 5 mg Polyethylene Glycol (Polyethylene Glycol 3350 17 Gm Packet) 17 gm PO DAILY [facility] Last Admin: 07/09/22 08:15 Dose: 17 gm Psyllium Hydrophilic Mucilloid (Psyllium Packet) 1 packet PO DAILY PRN PRN Reason: Constipation Last Admin: 07/05/22 12:46 Dose: 1 packet Saccharomyces Boulardii (Saccharomyces Boulardii 250 Mg Capsule) 250 mg PO BIDWM [facility] Last Admin: 07/09/22 16:20 Dose: 250 mg Senna (Senna 8.6 Mg Tablet) 8.6 - 17.2 mg PO BID [facility] Last Admin: 07/09/22 08:14 Dose: 17.2 mg No Known Home Medications 05/30/22 Objective - Vital Signs/Intake & Output Reviewed Vital Signs: Yes Vital Signs: Vital Signs x48h Temp Pulse Resp BP Pulse Ox 07/09/22 15:47 36.9 C 64 24 100/54 L 94 07/09/22 08:48 36.4 C L 60 16 108/47 L 95 Intake & Output: Intake & Output 07/06/22 07/07/22 07/08/22 07/09/22 23:59 23:59 23:59 23:59 Intake Total 1200 1120 1040 360 Output Total 650 650 525 600 Balance 550 470 515 -240 - Objective General Appearance: positive: Other (Sleepy. Wakes up with my voice and touch. Very withdrawn in comparison to the last time I saw him.) Eyes Bilateral: positive: PERRL, EOMI ENT: positive: Other (Bilateral temporal wasting, pronounced cheekbones. He appears to be losing weight) Respiratory: positive: Other (Rib cage visible. Slow, shallow, unlabored respiration. Severe pain when I palpate his right rib cage in the mid axillary line) Cardiovascular: positive: Regular rate & rhythm Abdomen: positive: Non-tender, Other (Scaphoid. Hypoactive bowel sounds) Skin: positive: Warm, Dry Extremities: positive: Non-tender, No pedal edema Neurologic/Psychiatric: positive: CN's nml (2-12), Disoriented to place, Disoriented to time. negative: Motor nml (Profound generalized weakness. 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 This tumor is eroding into his R rib cage (and you can actually put your finger on the outside of his chest wall to feel it). He has had a profound decrease in functional status, has cachexia, and had near immobility when he came into the hospital. He has improved in that he is now eating, gained a little weight, and is able to get up and move around the room a bit, and worked with PT and OT and met the goals. However, in the last 2 weeks he is slowly starting to fade again. Does not want to get out of bed. Is eating less because the pain is getting worse. He lived alone and therefore he can no longer be safely discharged to there. He was started on scheduled oral morphine Oxycodone is also available prn. (2) Fatigue Better pain control. He did not want a get out of bed for his meals, says he was too tired. He was on 3 times daily scheduled morphine so we reduced to twice daily. Fatigue really did not get much better and pain got worse. So we increased the morphine to 3 times daily again. Today he tells me that the morphine is "a puff". It immediately takes away the pain but it does not last very long. I am increasing morphine to 4 times a day and this terminally ill, antony gentleman I would also like to get a weight on him. He seems more cachectic on exam. (3) Severe protein calorie malnutrition He has severe protein calorie malnutrition, but overall we think he will succumb to his neoplasm. We checked routine labs on 06/30, since none had been done for over a week, and they were all stable. No intervention. (4) Cognitive impairment He has cognitive impairment that renders him unable to make his own decisions. He lived alone and therefore can no longer be safely discharged to there. We are awaiting an emergency guardianship to be established to make [facility] location plans, going forward for this gentleman. He would like to be in Hospice. The last Hospitalist did speak to an civil attorney on 06/13/22, who is pursuing this whole process with the hospital. SW has said that his grand-nephew recently said he would be available to be guardian. That hospitalist spoke to the same civil attorney 06/25 and emergency guardianship with "grandson" by name (not legal) Miquel is being considered for POA. Working on a court appointed guardian. Meanwhile SW has been looking for an SUGAR for him to go to, and a facility requested that PT and OT instruct him on passive ROM, and document that encou nter. This was done. Also, we ordered a Flu shot (for adult >65 y/o) as requested by an SUGAR. He got the Flu shot on 07/05.
[2022-07-10] MEDS: ENOXAPARIN 40 MG/0.4 ML SYRINGE SUBQ SCH (08:02)
[2022-07-10] MEDS: polyethylene glycoL 3350 17 GM PACKET PO SCH (08:02)
[2022-07-10] MEDS: SENNA 8.6 MG TABLET PO SCH ×2 (08:02→21:05)
[2022-07-10] MEDS: MULTIVITAMIN W/MINERALS TABLET PO SCH (08:03)
[2022-07-10] MEDS: SACCHAROMYCES BOULARDII 250 MG CAPSULE PO SCH ×2 (08:03→17:20)
[2022-07-10] MEDS: DOCUSATE SODIUM 250 MG CAPSULE PO SCH ×2 (08:04→21:05)
[2022-07-10] MEDS: MORPHINE IR 15 MG TABLET PO SCH ×4 (09:16→21:04)
--- NOTE | 2022-07-10 14:19 | PROVIDER PROGRESS NOTE ---
Subjective - Prog Note Date Prog Note Date: 07/10/22 Prog Note Time: 14:16 - Subjective Subjective: He has better pain relief with the increased frequency of morphine Current Medications - Current Medications Current Medications: Active Medications Acetaminophen (Acetaminophen 325 Mg Tablet) 650 mg PO Q4HR PRN PRN Reason: Pain 1 to 4, or Fever Last Admin: 07/08/22 12:16 Dose: 650 mg Docusate Sodium (Docusate Sodium 250 Mg Capsule) 250 - 500 mg PO BID [facility] Last Admin: 07/10/22 08:04 Dose: 250 mg Enoxaparin Sodium (Enoxaparin 40 Mg/0.4 Ml Syringe) 40 mg SUBQ DAILY [facility] Last Admin: 07/10/22 08:02 Dose: 40 mg Morphine Sulfate (Morphine Ir 15 Mg Tablet) 7.5 mg PO QID [facility] Last Admin: 07/10/22 09:16 Dose: 7.5 mg Multi-Ingredient Ointment (Zinc Oxide 20% Oint 30 Gm Tube) 1 applic TOP PRN PRN PRN Reason: Skin Care Last Admin: 06/27/22 20:49 Dose: 1 applic Multivitamins/Minerals (Multivitamin W/Minerals Tablet) 1 tab PO DAILYWM [facility] Last Admin: 07/10/22 08:03 Dose: 1 tab Ondansetron HCl (Ondansetron Odt 4 Mg Tablet) 4 mg TL Q6HR PRN PRN Reason: Nausea / Vomiting Oxycodone HCl (Oxycodone 10 Mg/0.5 Ml Syringe) 5 mg PO Q4HR PRN PRN Reason: PAIN Last Admin: 07/08/22 12:16 Dose: 5 mg Polyethylene Glycol (Polyethylene Glycol 3350 17 Gm Packet) 17 gm PO DAILY [facility] Last Admin: 07/10/22 08:02 Dose: 17 gm Psyllium Hydrophilic Mucilloid (Psyllium Packet) 1 packet PO DAILY PRN PRN Reason: Constipation Last Admin: 07/05/22 12:46 Dose: 1 packet Saccharomyces Boulardii (Saccharomyces Boulardii 250 Mg Capsule) 250 mg PO BIDWM [facility] Last Admin: 07/10/22 08:03 Dose: 250 mg Senna (Senna 8.6 Mg Tablet) 8.6 - 17.2 mg PO BID [facility] Last Admin: 07/10/22 08:02 Dose: 17.2 mg No Known Home Medications 05/30/22 Objective - Vital Signs/Intake & Output Reviewed Vital Signs: Yes Vital Signs: Vital Signs x48h Temp Pulse Resp BP Pulse Ox 07/10/22 08:29 36.5 C 61 16 107/50 L 94 Intake & Output: Intake & Output 07/07/22 07/08/22 07/09/22 07/10/22 23:59 23:59 23:59 23:59 Intake Total 1120 1040 610 360 Output Total 650 525 825 400 Balance 470 515 -215 -40 - Objective General Appearance: positive: Alert, Other (Short statured, cachectic, frail- appearing elderly gentleman that wakes to my voice. Spends a lot of time sl eeping. He is eating anywhere from a few bites to 40% of his food. Anything in between.) Eyes Bilateral: positive: PERRL, EOMI ENT: positive: No signs of dehydration Neck: positive: No JVD Respiratory: positive: No respiratory distress. negative: Wheezes, Rales, Rhonchi Cardiovascular: positive: Regular rate & rhythm Abdomen: positive: Non-tender, No organomegaly, Nml bowel sounds, No distention Extremities: positive: Non-tender, Full ROM Neurologic/Psychiatric: positive: CN's nml (2-12), Disoriented to place, Disoriented to time, Other (Very frail, tired appearing elderly gentleman). 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 This tumor is eroding into his R rib cage (and you can actually put your finger on the outside of his chest wall to feel it). He has had a profound decrease in functional status, has cachexia, and had near immobility when he came into the hospital. He has improved in that he is now eating, gained a little weight, and is able to get up and move around the room a bit, and worked with PT and OT and met the goals. How ever, in the last 2 weeks he is slowly starting to fade again. Does not want to get out of bed. Is eating less because the pain is getting worse. He lived alone and therefore he can no longer be safely discharged to there. He was started on scheduled oral morphine. Oxycodone is also available prn. (2) Fatigue Better pain control. He did not want a get out of bed for his meals, says he was too tired. He was on 3 times daily scheduled morphine so we reduced to twic e daily. Fatigue really did not get much better and pain got worse. So we increased the morphine to 3 times daily again. 07/09, he told me that the morphine is "a puff". It immediately takes away the pain but it does not last very long. I increased morphine to 4 times a day in this terminally ill, antony gentleman on 07/09 With questioning today, he states that it is better. He feels more relief and is not as severe and stabbing (3) Severe protein calorie malnutrition He has severe protein calorie malnutrition, but overall we think he will succumb to his neoplasm. We checked routine labs on 06/30, since none had been done for over a week, and they were all stable. No intervention. (4) Cognitive impairment He has cognitive impairment that renders him unable to make his own decisions. He lived alone and therefore can no longer be safely discharged to there. We are awaiting an emergency guardianship to be established to make [facility] location plans, going forward for this gentleman. He would like to be in Hospice. The last Hospitalist did speak to an commercial litigation attorney on 06/13/22, who is pursuing this whole process with the hospital. ALBERTO has said that his grand-nephew recently said he would be available to be guardian. That hospitalist spoke to the same commercial litigation attorney 06/25 and emergency guardianship with "grandson" by name (not legal) Miquel is being considered for POA. Working on a court appointed guardian. Meanwhile ALBERTO has been looking for an CORRE[facility] for him to go to, and a facility requested that PT and OT instruct him on passive ROM, and document that encounter. This was done. Also, we ordered a Flu shot (for adult >65 y/o) as requested by an CORRECTION. He got the Flu shot on 07/05.
[2022-07-11] MEDS: polyethylene glycoL 3350 17 GM PACKET PO SCH (08:33)
[2022-07-11] MEDS: ENOXAPARIN 40 MG/0.4 ML SYRINGE SUBQ SCH (08:33)
[2022-07-11] MEDS: DOCUSATE SODIUM 250 MG CAPSULE PO SCH ×2 (08:33→20:24)
[2022-07-11] MEDS: SENNA 8.6 MG TABLET PO SCH ×2 (08:33→20:24)
[2022-07-11] MEDS: SACCHAROMYCES BOULARDII 250 MG CAPSULE PO SCH (08:34)
[2022-07-11] MEDS: MORPHINE IR 15 MG TABLET PO SCH ×4 (08:34→20:24)
[2022-07-11] MEDS: MULTIVITAMIN W/MINERALS TABLET PO SCH (08:37)
[2022-07-11] MEDS ORDERED: MAGNESIUM HYDROXIDE 2,400 MG/30 ML UDC PO PRN (12:29)
[2022-07-11] MEDS: PSYLLIUM PACKET PO PRN (12:37)
[2022-07-11] MEDS: oxyCODONE 10 MG/0.5 ML SYRINGE PO PRN (14:25)
--- NOTE | 2022-07-11 18:50 | PROVIDER PROGRESS NOTE ---
Subjective - Prog Note Date Prog Note Date: 07/11/22 Prog Note Time: 18:47 - Subjective Pt reports feeling: No change Current Medications - Current Medications Current Medications: Active Medications Acetaminophen (Acetaminophen 325 Mg Tablet) 650 mg PO Q4HR PRN PRN Reason: Pain 1 to 4, or Fever Last Admin: 07/08/22 12:16 Dose: 650 mg Docusate Sodium (Docusate Sodium 250 Mg Capsule) 250 - 500 mg PO BID ON LICENSE OF [facility] Last Admin: 07/11/22 08:33 Dose: 250 mg Enoxaparin Sodium (Enoxaparin 40 Mg/0.4 Ml Syringe) 40 mg SUBQ DAILY ON LICENSE OF [facility] Last Admin: 07/11/22 08:33 Dose: 40 mg Magnesium Hydroxide (Magnesium Hydroxide 2,400 Mg/30 Ml Udc) 2,400 mg PO ONCE PRN PRN Reason: Constipation Stop: 07/12/22 12:28 Morphine Sulfate (Morphine Ir 15 Mg Tablet) 7.5 mg PO QID ON LICENSE OF [facility] Last Admin: 07/11/22 17:04 Dose: 7.5 mg Multi-Ingredient Ointment (Zinc Oxide 20% Oint 30 Gm Tube) 1 applic TOP PRN PRN PRN Reason: Skin Care Last Admin: 06/27/22 20:49 Dose: 1 applic Multivitamins/Minerals (Multivitamin W/Minerals Tablet) 1 tab PO DAILYWM ON LICENSE OF [facility] Last Admin: 07/11/22 08:37 Dose: 1 tab Ondansetron HCl (Ondansetron Odt 4 Mg Tablet) 4 mg TL Q6HR PRN PRN Reason: Nausea / Vomiting Oxycodone HCl (Oxycodone 10 Mg/0.5 Ml Syringe) 5 mg PO Q4HR PRN PRN Reason: PAIN Last Admin: 07/11/22 14:25 Dose: 5 mg Polyethylene Glycol (Polyethylene Glycol 3350 17 Gm Packet) 17 gm PO DAILY ON LICENSE OF [facility] Last Admin: 07/11/22 08:33 Dose: 17 gm Psyllium Hydrophilic Mucilloid (Psyllium Packet) 1 packet PO DAILY PRN PRN Reason: Constipation Last Admin: 07/11/22 12:37 Dose: 1 packet Senna (Senna 8.6 Mg Tablet) 8.6 - 17.2 mg PO BID ON LICENSE OF [facility] Last Admin: 07/11/22 08:33 Dose: 17.2 mg No Known Home Medications 05/30/22 Objective - Vital Signs/Intake & Output Reviewed Vital Signs: Yes Vital Signs: Vital Signs x48h Temp Pulse Resp BP Pulse Ox 07/11/22 16:09 36.7 C 67 24 109/51 L 94 Intake & Output: Intake & Output 07/08/22 07/09/22 07/10/22 07/11/22 23:59 23:59 23:59 23:59 Intake Total 1040 610 930 740 Output Total 525 825 625 425 Balance 515 -215 305 315 - Objective General Appearance: positive: Alert, Other (frail, cachectic, muted affect. 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" when we spoke about the process) Eyes Bilateral: positive: PERRL, EOMI ENT: positive: No signs of dehydration Neck: positive: No JVD Respiratory: positive: No respiratory distress, Rhonchi Cardiovascular: positive: Regular rate & rhythm Abdomen: positive: Non-tender, No organomegaly, Nml bowel sounds, No distention Skin: positive: Warm, Dry Extremities: positive: Full ROM, No pedal edema Neurologic/Psychiatric: positive: CN's nml (2-12), Motor nml (he's just weak, needs help), Disoriented to place, Disoriented to time - Lab Results Fish Bones: 06/29/22 05:04 06/29/22 05:04 Assessment/Plan - Problem List (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 This tumor is eroding into his R rib cage (and you can actually put your finger on the outside of his chest wall to feel it). He has had a profound decrease in functional status, has cachexia, and had near immobility when he came into the hospital. He has improved in that he is now eating, gained a little weight, and is able to get up and move around the room a bit, and worked with PT and OT and met the goals. However, in the last 2 weeks he is slowly starting to fade again. Does not want to get out of bed. Is eating less because the pain is getting worse. He lived alone and therefore he can no longer be safely discharged to there. He was started on scheduled oral morphine. Oxycodone is also available prn. (2) Fatigue Better pain control. He did not want a get out of bed for his meals, says he was too tired. He was on 3 times daily scheduled morphine so we reduced to twice daily. Fatigue really did not get much better and pain got worse. So we increased the morphine to 3 times daily again. 07/09, he told me that the morphine is "a puff". It immediately takes away the pain but it does not last very long. I increased morphine to 4 times a day in this terminally ill, antony gentleman on 07/09 Pain if better controlled since then. He feels more relief and is not as severe and stabbing (3) Severe protein calorie malnutrition He has severe protein calorie malnutrition, but overall we think he will succumb to his neoplasm. We checked routine labs on 06/30, since none had been done for over a week, and they were all stable. No intervention. (4) Cognitive impairment He has cognitive impairment that renders him unable to make his own decisions. He lived alone and therefore can no longer be safely discharged to there. We are awaiting an emergency guardianship to be established to make [facility] location plans, going forward for this gentleman. He would like to be in Hospice. The [facility] Hospitalist did speak to an state's attorney on 06/13/22, who is pursuing this whole process with the hospital. ALBERTO has said that his grand-nephew recently said he would be available to be guardian. That hospitalist spoke to the same state's attorney 06/25 and emergency guardianship with "grandson" by name (not legal) Miquel is being considered for POA. Working on a court appointed guardian. Meanwhile ALBERTO has been looking for an [facility] for him to go to, and a facility requested that PT and OT instruct him on passive ROM, and document that encounter. This was done. Also, we ordered a Flu shot (for adult >65 y/o) as requested by an SUGAR. He got the Flu shot on 07/05.
[2022-07-12] MEDS: MULTIVITAMIN W/MINERALS TABLET PO SCH (08:34)
[2022-07-12] MEDS: DOCUSATE SODIUM 250 MG CAPSULE PO SCH ×2 (08:34→20:27)
[2022-07-12] MEDS: ENOXAPARIN 40 MG/0.4 ML SYRINGE SUBQ SCH (08:36)
[2022-07-12] MEDS: MORPHINE IR 15 MG TABLET PO SCH ×4 (08:37→20:27)
--- NOTE | 2022-07-12 12:47 | PROVIDER PROGRESS NOTE ---
Subjective - Prog Note Date Prog Note Date: 07/12/22 Prog Note Time: 12:46 - Subjective Subjective: Sleepier today. But he called the nurse this morning around 8:00 and said that he was in terrible terrible pain in his armpit. Tearful. Given pain medication and able to go back to sleep. Current Medications - Current Medications Current Medications: Active Medications Acetaminophen (Acetaminophen 325 Mg Tablet) 650 mg PO Q4HR PRN PRN Reason: Pain 1 to 4, or Fever Last Admin: 07/08/22 12:16 Dose: 650 mg Docusate Sodium (Docusate Sodium 250 Mg Capsule) 250 - 500 mg PO BID [facility] Last Admin: 07/12/22 08:34 Dose: 250 mg Enoxaparin Sodium (Enoxaparin 40 Mg/0.4 Ml Syringe) 40 mg SUBQ DAILY [facility] Last Admin: 07/12/22 08:36 Dose: 40 mg Morphine Sulfate (Morphine Ir 15 Mg Tablet) 7.5 mg PO QID [facility] Last Admin: 07/12/22 08:37 Dose: 7.5 mg Multi-Ingredient Ointment (Zinc Oxide 20% Oint 30 Gm Tube) 1 applic TOP PRN PRN PRN Reason: Skin Care Last Admin: 06/27/22 20:49 Dose: 1 applic Multivitamins/Minerals (Multivitamin W/Minerals Tablet) 1 tab PO DAILYWM [facility] Last Admin: 07/12/22 08:34 Dose: 1 tab Ondansetron HCl (Ondansetron Odt 4 Mg Tablet) 4 mg TL Q6HR PRN PRN Reason: Nausea / Vomiting Oxycodone HCl (Oxycodone 10 Mg/0.5 Ml Syringe) 5 mg PO Q4HR PRN PRN Reason: PAIN Last Admin: 07/11/22 14:25 Dose: 5 mg Polyethylene Glycol (Polyethylene Glycol 3350 17 Gm Packet) 17 gm PO DAILY [facility] Last Admin: 07/11/22 08:33 Dose: 17 gm Psyllium Hydrophilic Mucilloid (Psyllium Packet) 1 packet PO DAILY PRN PRN Reason: Constipation Last Admin: 07/11/22 12:37 Dose: 1 packet Senna (Senna 8.6 Mg Tablet) 8.6 - 17.2 mg PO BID [facility] Last Admin: 07/11/22 20:24 Dose: Not Given No Known Home Medications 05/30/22 Objective - Vital Signs/Intake & Output Reviewed Vital Signs: Yes Vital Signs: Vital Signs x48h Temp Pulse Resp BP Pulse Ox 07/12/22 07:52 36.4 C L 60 20 106/43 L 95 Intake & Output: Intake & Output 07/09/22 07/10/22 07/11/22 07/12/22 23:59 23:59 23:59 23:59 Intake Total 962 279 9745 180 Output Total 825 625 425 575 Balance -215 305 585 -395 - Objective General Appearance: positive: Lethargic Eyes Bilateral: positive: PERRL, EOMI Neck: positive: No JVD. negative: Stiff neck Respiratory: positive: No respiratory distress. negative: Wheezes, Rales, Rhonchi Cardiovascular: positive: Regular rate & rhythm Abdomen: positive: Non-tender, No organomegaly, Nml bowel sounds, No distention Skin: positive: Warm, Dry Extremities: positive: Full ROM, No pedal edema Neurologic/Psychiatric: positive: CN's nml (2-12), Disoriented to place, Disoriented to time. negative: Motor nml (Generalized weakness. 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 This tumor is eroding into his R rib cage (and you can actually put your finger on the outside of his chest wall to feel it). He has had a profound decrease in functional status, has cachexia, and had near immobility when he came into the hospital. He has improved in that he is now eating, gained a little weight, and is able to get up and move around the room a bit, and worked with PT and OT and met the goals. However, in the last 2 weeks he is slowly starting to fade again. Does not want to get out of bed. Is eating less because the pain is getting worse. He lived alone and therefore he can no longer be safely discharged to there. He was started on scheduled oral morphine. Oxycodone is also available prn. (2) Fatigue Better pain control. He did not want a get out of bed for his meals, says he was too tired. He was on 3 times daily scheduled morphine so we reduced to twice daily. Fatigue really did not get much better and pain got worse. So we increased the morphine to 3 times daily again. 07/09, he told me that the morphine is "a puff". It immediately takes away the pain but it does not last very long. I increased morphine to 4 times a day in this terminally ill, antony gentleman on 07/09 Pain if better controlled since then. He feels more relief and is not as severe and stabbing (3) Severe protein calorie malnutrition He has severe protein calorie malnutrition, but overall we think he will succumb to his neoplasm. We checked routine labs on 06/30, since none had been done for over a week, and they were all stable. No intervention. (4) Cognitive impairment He has cognitive impairment that renders him unable to make his own decisions. He lived alone and therefore can no longer be safely discharged to there. We are awaiting an emergency guardianship to be established to make [facility] location plans, going forward for this gentleman. He would like to be in Hospice. The last Hospitalist did speak to an litigation attorney associate on 06/13/22, who is pursuing this whole process with the hospital. ALBERTO has said that his grand-nephew recently said he would be available to be guardian. That hospitalist spoke to the same litigation attorney associate 06/25 and emergency guardianship with "grandson" by name (not legal) Miquel is being considered for POA. Working on a court appointed guardian. Meanwhile ALBERTO has been looking for an [facility] for him to go to, and a facility requested that PT and OT instruct him on passive ROM, and document that encounter. This was done. Also, we ordered a Flu shot (for adult >65 y/o) as requested by an [facility]. He got the Flu shot on 07/05.
[2022-07-12] MEDS: polyethylene glycoL 3350 17 GM PACKET PO SCH (13:49)
[2022-07-12] MEDS: SENNA 8.6 MG TABLET PO SCH ×2 (13:50→20:27)
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
[2022-07-13 08:29] LABS: BASOPHILS # (AUTO) 0.1 10^3/uL (0.0-0.1); BASOPHILS % (AUTO) 0.6 %; EOSINOPHILS # (AUTO) 0.1 10^3/uL (0.0-0.7); EOSINOPHILS % (AUTO) 0.8 %; HCT - HEMATOCRIT 32.7 % (42.0-52.0); HGB - HEMOGLOBIN 9.7 g/dL (14.0-18.0); LYMPHOCYTES # (AUTO) 1.4 10^3/uL (1.5-3.5); LYMPHOCYTES % (AUTO) 17.1 %; MEAN CORPUSCULAR HEMOGLOBIN 25.1 pg (27.0-31.0); MEAN CORPUSCULAR HGB CONC 29.7 g/dL (32.0-36.0); MEAN CORPUSCULAR VOLUME 84.5 fL (80.0-94.0); MEAN PLATELET VOLUME 8.6 fL (7.4-11.4); MONOCYTES % (AUTO) 12.4 %; NEUTROPHILS # (AUTO) 5.7 10^3/uL (1.5-6.6); NEUTROPHILS % (AUTO) 68.4 %; PLT - PLATELET COUNT 543 10^3/uL (130-450); RED BLOOD COUNT 3.87 10^6/uL (4.70-6.10); RED CELL DISTRIBUTION WIDTH 15.9 % (12.0-15.0); WHITE BLOOD COUNT 8.4 x10^3/uL (4.8-10.8)
[2022-07-13 08:35] LABS: CALCIUM 9.1 mg/dL (8.5-10.3); CREATININE 0.8 mg/dL (0.6-1.2); POTASSIUM 3.9 mmol/L (3.5-5.0)
[2022-07-13] MEDS: MULTIVITAMIN W/MINERALS TABLET PO SCH (09:02)
[2022-07-13] MEDS: SENNA 8.6 MG TABLET PO SCH ×2 (09:02→20:40)
[2022-07-13] MEDS: MORPHINE IR 15 MG TABLET PO SCH ×4 (09:03→20:41)
[2022-07-13] MEDS: ENOXAPARIN 40 MG/0.4 ML SYRINGE SUBQ SCH (09:03)
[2022-07-13] MEDS: DOCUSATE SODIUM 250 MG CAPSULE PO SCH ×2 (09:03→20:40)
[2022-07-13] MEDS: polyethylene glycoL 3350 17 GM PACKET PO SCH (09:03)
[2022-07-13] MEDS ORDERED: LORazepam 2 MG/ML VIAL IVP PRN (16:26)
[2022-07-13] MEDS ORDERED: LORazepam 0.5 MG TABLET SL PRN (16:34)
[2022-07-13] MEDS: LORazepam 0.5 MG TABLET SL PRN (20:41)
[2022-07-14] MEDS: DOCUSATE SODIUM 250 MG CAPSULE PO SCH ×2 (08:56→21:13)
[2022-07-14] MEDS: ENOXAPARIN 40 MG/0.4 ML SYRINGE SUBQ SCH (08:56)
[2022-07-14] MEDS: MORPHINE IR 15 MG TABLET PO SCH ×4 (08:56→21:10)
[2022-07-14] MEDS: SENNA 8.6 MG TABLET PO SCH ×2 (08:56→21:12)
[2022-07-14] MEDS: MULTIVITAMIN W/MINERALS TABLET PO SCH (08:56)
[2022-07-14] MEDS: polyethylene glycoL 3350 17 GM PACKET PO SCH (08:57)
--- NOTE | 2022-07-14 17:25 | PROVIDER PROGRESS NOTE ---
Subjective - Prog Note Date Prog Note Date: 07/14/22 Prog Note Time: 17:23 - Subjective Subjective: Nursing reports that he got a lot of sleep last night. And in doing so woke up much more oriented and less agitated today. He is still getting up to eat, will drink a few sips, and then gets back in bed and goes back to sleep. Current Medications - Current Medications Current Medications: Active Medications Acetaminophen (Acetaminophen 325 Mg Tablet) 650 mg PO Q4HR PRN PRN Reason: Pain 1 to 4, or Fever Last Admin: 07/08/22 12:16 Dose: 650 mg Docusate Sodium (Docusate Sodium 250 Mg Capsule) 250 - 500 mg PO BID [facility] Last Admin: 07/14/22 08:56 Dose: 250 mg Enoxaparin Sodium (Enoxaparin 40 Mg/0.4 Ml Syringe) 40 mg SUBQ DAILY [facility] Last Admin: 07/14/22 08:56 Dose: 40 mg Lorazepam (Lorazepam 0.5 Mg Tablet) 1 mg SL Q4H PRN PRN Reason: Anxiety Last Admin: 07/13/22 20:41 Dose: 1 mg Morphine Sulfate (Morphine Ir 15 Mg Tablet) 7.5 mg PO QID [facility] Last Admin: 07/14/22 17:16 Dose: 7.5 mg Multi-Ingredient Ointment (Zinc Oxide 20% Oint 30 Gm Tube) 1 applic TOP PRN PRN PRN Reason: Skin Care Last Admin: 06/27/22 20:49 Dose: 1 applic Multivitamins/Minerals (Multivitamin W/Minerals Tablet) 1 tab PO DAILYWM [facility] Last Admin: 07/14/22 08:56 Dose: 1 tab Ondansetron HCl (Ondansetron Odt 4 Mg Tablet) 4 mg TL Q6HR PRN PRN Reason: Nausea / Vomiting Oxycodone HCl (Oxycodone 10 Mg/0.5 Ml Syringe) 5 mg PO Q4HR PRN PRN Reason: PAIN Last Admin: 07/11/22 14:25 Dose: 5 mg Polyethylene Glycol (Polyethylene Glycol 3350 17 Gm Packet) 17 gm PO DAILY [facility] Last Admin: 07/14/22 08:57 Dose: 17 gm Psyllium Hydrophilic Mucilloid (Psyllium Packet) 1 packet PO DAILY PRN PRN Reason: Constipation Last Admin: 07/11/22 12:37 Dose: 1 packet Senna (Senna 8.6 Mg Tablet) 8.6 - 17.2 mg PO BID [facility] Last Admin: 07/14/22 08:56 Dose: 8.6 mg No Known Home Medications 05/30/22 Objective - Vital Signs/Intake & Output Reviewed Vital Signs: Yes Vital Signs: Vital Signs x48h Temp Pulse Resp BP Pulse Ox 07/14/22 16:06 36.5 C 71 18 117/52 L 99 07/14/22 12:09 36.5 C 65 16 99/51 L 95 Intake & Output: Intake & Output 07/11/22 07/12/22 07/13/22 07/14/22 23:59 23:59 23:59 23:59 Intake Total 1010 620 500 560 Output Total 425 750 500 350 Balance 585 -130 0 210 - Objective General Appearance: positive: Alert (When I touch her shoulder to wake him up. He knows he is in the hospital. Does not know what day it is. Knows that it is [place] and that he has a tumor that is killing him.), Other (Cachectic, frail, following prompts.Very amiable elderly gentleman) Eyes Bilateral: positive: PERRL, EOMI ENT: positive: No signs of dehydration Neck: positive: No JVD Respiratory: positive: No respiratory distress, Rhonchi Cardiovascular: positive: Regular rate & rhythm, Systolic murmur Abdomen: positive: Non-tender, No organomegaly, Nml bowel sounds, No distention Skin: positive: Warm, Dry Extremities: positive: Full ROM, No pedal edema. negative: Nml appearance (Severe loss of muscle mass, cachectic) Neurologic/Psychiatric: positive: CN's nml (2-12) (Except for mildly to moderately deaf), Disoriented to time. negative: Motor nml (Generalized weakness. No focal deficits.) - Lab Results Fish Bones: 07/13/22 08:19 07/13/22 08:19 Assessment/Plan - Problem List (1) Delirium Impression: He has had increased morphine with increased sedation in the face of increasing pain from the neoplasm eroding his rib cage. No fever and vitals stable. Exam unchanged. I suspect it is the morphine used on his already present dementia and cognitive impairment. CBC and CMP were unremarkable. Ativan added and it seems to have worked to decrease his delirium. 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 This tumor is eroding into his R rib cage (and you can actually put your finger on the outside of his chest wall to feel it). He has had a profound decrease in functional status, has cachexia, and had near immobility when he came into the hospital. He has improved in that he is now eating, gained a little weight, and is able to get up and move around the room a bit, and worked with PT and OT and met the goals. However, in the last 2 weeks he is slowly starting to fade again. Does not want to get out of bed. Is eating less because the pain is getting worse. He lived alone and therefore he can no longer be safely discharged to there. He was started on scheduled oral morphine. Oxycodone is also available prn. (3) Fatigue Better pain control. He did not want a get out of bed for his meals, says he was too tired. He was on 3 times daily scheduled morphine so we reduced to twice daily. Fatigue really did not get much better and pain got worse. So we increased the morphine to 3 times daily again. 07/09, he told me that the morphine is "a puff". It immediately takes away the pain but it does not last very long. I increased morphine to 4 times a day in this terminally ill, antony gentleman on 07/09 Pain if better controlled since then. He feels more relief and is not as severe and stabbing (4) Severe protein calorie malnutrition He has severe protein calorie malnutrition, but overall we think he will succumb to his neoplasm. We checked routine labs on 06/30, since none had been done for over a week, and they were all stable. No intervention. (5) Cognitive impairment He has cognitive impairment that renders him unable to make his own decisions. He lived alone and therefore can no longer be safely discharged to there. We are awaiting an emergency guardianship to be established to make [facility] location plans, going forward for this gentleman. He would like to be in Hospice. The last Hospitalist did speak to an health care attorney on 06/13/22, who is pursuing this whole process with the hospital. SW has said that his grand-nephew recently said he would be available to be guardian. That hospitalist spoke to the same health care attorney 06/25 and emergency guardianship with "grandson" by name (not legal) Miquel is being considered for POA. Working on a court appointed guardian. Meanwhile SW has been looking for an [facility] for him to go to, and a facility requested that PT and OT instruct him on passive ROM, and document that encou nter. This was done. Also, we ordered a Flu shot (for adult >65 y/o) as requested by an SUGAR. He got the Flu shot on 07/05. There was a conference between his court appointed guardian, and 2 people who are related to his girlfriend yesterday, 07/12. Even though there is no legal marriage, they regard him as "" to this lady and feel that he is part of their family. They lost contact with him and have been unable to find them for the last few months because of his moving around getting a new cell phone. In addition to the guardian, those 2 people, it is social work and myself.. One of the relatives works for [employer] and is well aware of how the system works. That relative would like to be his power of health care attorney and that is being worked through as well. At this time we have found a correction for him and he is hopefully going to [facility] next Friday (today is Friday). His current POA thru the court is approving this and then down the road, the new POA and family will be able to f ind a nursing home that is willing to take him near them at [place].
[2022-07-15] MEDS: SENNA 8.6 MG TABLET PO SCH ×2 (08:17→21:22)
[2022-07-15] MEDS: MULTIVITAMIN W/MINERALS TABLET PO SCH (08:17)
[2022-07-15] MEDS: polyethylene glycoL 3350 17 GM PACKET PO SCH (08:18)
[2022-07-15] MEDS: ENOXAPARIN 40 MG/0.4 ML SYRINGE SUBQ SCH (08:18)
[2022-07-15] MEDS: MORPHINE IR 15 MG TABLET PO SCH ×4 (08:18→21:21)
[2022-07-15] MEDS: DOCUSATE SODIUM 250 MG CAPSULE PO SCH ×2 (08:18→21:22)
--- NOTE | 2022-07-15 13:26 | PROVIDER PROGRESS NOTE ---
Subjective - Prog Note Date Prog Note Date: 07/15/22 Prog Note Time: 13:17 - Subjective Subjective: Calm this morning. He was sleeping when I walked in and all I had to do was call his name he woke up. He knows where he is. His main complaint is axillary pain. He says that it is better and as long as he stays still it is okay. The delirium and agitation from the day before yesterday appears to have resolved Current Medications - Current Medications Current Medications: Active Medications Acetaminophen (Acetaminophen 325 Mg Tablet) 650 mg PO Q4HR PRN PRN Reason: Pain 1 to 4, or Fever Last Admin: 07/08/22 12:16 Dose: 650 mg Docusate Sodium (Docusate Sodium 250 Mg Capsule) 250 - 500 mg PO BID [facility] Last Admin: 07/15/22 08:18 Dose: 250 mg Enoxaparin Sodium (Enoxaparin 40 Mg/0.4 Ml Syringe) 40 mg SUBQ DAILY [facility] Last Admin: 07/15/22 08:18 Dose: 40 mg Lorazepam (Lorazepam 0.5 Mg Tablet) 1 mg SL Q4H PRN PRN Reason: Anxiety Last Admin: 07/13/22 20:41 Dose: 1 mg Morphine Sulfate (Morphine Ir 15 Mg Tablet) 7.5 mg PO QID [facility] Last Admin: 07/15/22 08:18 Dose: 7.5 mg Multi-Ingredient Ointment (Zinc Oxide 20% Oint 30 Gm Tube) 1 applic TOP PRN PRN PRN Reason: Skin Care Last Admin: 06/27/22 20:49 Dose: 1 applic Multivitamins/Minerals (Multivitamin W/Minerals Tablet) 1 tab PO DAILYWM [facility] Last Admin: 07/15/22 08:17 Dose: 1 tab Ondansetron HCl (Ondansetron Odt 4 Mg Tablet) 4 mg TL Q6HR PRN PRN Reason: Nausea / Vomiting Oxycodone HCl (Oxycodone 10 Mg/0.5 Ml Syringe) 5 mg PO Q4HR PRN PRN Reason: PAIN Last Admin: 07/11/22 14:25 Dose: 5 mg Polyethylene Glycol (Polyethylene Glycol 3350 17 Gm Packet) 17 gm PO DAILY [facility] Last Admin: 07/15/22 08:18 Dose: 17 gm Psyllium Hydrophilic Mucilloid (Psyllium Packet) 1 packet PO DAILY PRN PRN Reason: Constipation Last Admin: 07/11/22 12:37 Dose: 1 packet Senna (Senna 8.6 Mg Tablet) 8.6 - 17.2 mg PO BID [facility] Last Admin: 07/15/22 08:17 Dose: 8.6 mg No Known Home Medications 05/30/22 Objective - Vital Signs/Intake & Output Reviewed Vital Signs: Yes Vital Signs: Vital Signs x48h Temp Pulse Resp BP Pulse Ox 07/15/22 09:00 36.8 C 64 18 101/48 L 97 Intake & Output: Intake & Output 07/12/22 07/13/22 07/14/22 07/15/22 23:59 23:59 23:59 23:59 Intake Total 327 062 2630 230 Output Total 750 500 350 425 Balance -130 0 650 -195 - Objective General Appearance: positive: No acute distress, Alert, Other (Cachectic, frail, elderly gentleman who is following commands) Eyes Bilateral: positive: PERRL, EOMI ENT: positive: No signs of dehydration Neck: positive: No JVD. negative: Stiff neck Respiratory: positive: No respiratory distress. negative: Wheezes, Rales, Rhonchi Cardiovascular: positive: Regular rate & rhythm Abdomen: positive: Non-tender, No organomegaly, Nml bowel sounds Skin: positive: Warm, Dry Extremities: positive: Full ROM, No pedal edema Neurologic/Psychiatric: positive: CN's nml (2-12), Motor nml (Except for gene ralized weakness), Disoriented to time - Lab Results Fish Bones: 07/13/22 08:19 07/13/22 08:19 Assessment/Plan - Problem List (1) Delirium Impression: Resolved He has had increased morphine with increased sedation in the face of increasing pain from the neoplasm eroding his rib cage. No fever and vitals stable. Exam unchanged. I suspect it is the morphine used on his already present dementia and cognitive impairment. CBC and CMP were unremarkable. Ativan added and it seems to have worked to decrease his delirium. 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 This tumor is eroding into his R rib cage (and you can actually put your finger on the outside of his chest wall to feel it). He has had a profound decrease in functional status, has cachexia, and had near immobility when he came into the hospital. He has improved in that he is now eating, gained a little weight, and is able to get up and move around the room a bit, and worked with PT and OT and met the goals. However, in the last 2 weeks he is slowly starting to fade again. Does not want to get out of bed. Is eating less because the pain is getting worse. He lived alone and therefore he can no longer be safely discharged to there. He was started on scheduled oral morphine. Oxycodone is also available prn. (3) Fatigue Better pain control. He did not want a get out of bed for his meals, says he was too tired. He was on 3 times daily scheduled morphine so we reduced to twice daily. Fatigue really did not get much better and pain got worse. So we increased the morphine to 3 times daily again. 07/09, he told me that the morphine is "a puff". It immediately takes away the pain but it does not last very long. I increased morphine to 4 times a day in this terminally ill, antony gentleman on 07/09 Pain if better controlled since then. He feels more relief and is not as severe and stabbing (4) Severe protein calorie malnutrition He has severe protein calorie malnutrition, but overall we think he will succumb to his neoplasm. We checked routine labs on 06/30, since none had been done for over a week, and they were all stable. No intervention. (5) Cognitive impairment He has cognitive impairment that renders him unable to make his own decisions. He lived alone and therefore can no longer be safely discharged to there. We are awaiting an emergency guardianship to be established to make [facility] location plans, going forward for this gentleman. He would like to be in Hospice. The last Hospitalist did speak to an contact finger assembler on 06/13/22, who is pursuing this whole process with the hospital. ALBERTO has said that his grand-nephew recently said he would be available to be guardian. That hospitalist spoke to the same contact finger assembler 06/25 and emergency guardianship with "grandson" by name (not legal) Miquel is being considered for POA. Working on a court appointed guardian. Meanwhile ALBERTO has been looking for an [facility] for him to go to, and a facility req uested that PT and OT instruct him on passive ROM, and document that encounter. This was done. Also, we ordered a Flu shot (for adult >65 y/o) as requested by an SUGAR. He got the Flu shot on 07/05. There was a conference between his court appointed guardian, and 2 people who are related to his girlfriend yesterday, 07/12. Even though there is no legal marriage, they regard him as "" to this lady and feel that he is part of their family. They lost contact with him and have been unable to find them for the last few months because of his moving around getting a new cell phone. In addition to the guardian, those 2 people, it is social work and myself.. One of the relatives works for [employer] and is well aware of how the system works. That relative would like to be his power of contact finger assembler and that is being worked through as well. Social work updated me today. While we did find a fpc for him to go to, the application process for home community services to verify his income status has not been completed. As such we have no access to finding to place him in a fpc. The good news is there are several group homes now readily wanting to take him. So his power of contact finger assembler to be in [facility] may be able to get her desire. We will have to wait for the clinical social worker associated with the state to complete the work-up
[2022-07-16] MEDS: oxyCODONE 10 MG/0.5 ML SYRINGE PO PRN ×2 (04:36→16:27)
[2022-07-16] MEDS: MORPHINE IR 15 MG TABLET PO SCH ×4 (08:53→20:53)
[2022-07-16] MEDS: DOCUSATE SODIUM 250 MG CAPSULE PO SCH ×2 (08:54→20:55)
[2022-07-16] MEDS: SENNA 8.6 MG TABLET PO SCH ×2 (08:54→20:55)
[2022-07-16] MEDS: MULTIVITAMIN W/MINERALS TABLET PO SCH (08:54)
[2022-07-16] MEDS: ENOXAPARIN 40 MG/0.4 ML SYRINGE SUBQ SCH (08:55)
[2022-07-16] MEDS: polyethylene glycoL 3350 17 GM PACKET PO SCH (08:55)
--- NOTE | 2022-07-16 12:18 | PROVIDER PROGRESS NOTE ---
Assessment/Plan - Problem List (1) Metastatic lung cancer (metastasis from lung to other site) Qualifiers: Qualified Code(s): C34.90 - Malignant neoplasm of unspecified part of unspecified bronchus or lung Assessment/Plan: He has a lung neoplasm in the right lower lung. This tumor is eroding into his R rib cage (and you can actually put your finger on the outside of his chest wall to feel it). He has had a profound decrease in functional status, has cachexia, and had near immobility when he came into the hospital. He has improved in that he is now eating, gained a little weight, and is able to get up and move around the room a bit, and worked with PT and OT and met the goals. However, in the last 2 weeks he is slowly starting to fade again. Does not want to get out of bed. Is eating less because the pain is getting worse. He lived alone and therefore he can no longer be safely discharged to there. He was started on scheduled oral morphine. Oxycodone is also available prn. (2) Fatigue Better pain control. He did not want a get out of bed for his meals, says he was too tired. He was on 3 times daily scheduled morphine so we reduced to twice daily. Fatigue really did not get much better and pain got worse. So we increased the morphine to 3 times daily again. 07/09, he told me that the morphine is "a puff". It immediately takes away the pain but it does not last very long. We increased morphine to 4 times a day in this terminally ill gentleman on 07/09 Pain is better controlled since then. He feels more relief and is not as severe and stabbing (3) Severe protein calorie malnutrition He has severe protein calorie malnutrition, but overall we think he will succumb to his neoplasm. We checked routine labs on 07/13, since none had been done for over a week, and they were all stable. No intervention. (4) Cognitive impairment He has cognitive impairment that renders him unable to make his own decisions. He lived alone and therefore can no longer be safely discharged to there. We are awaiting an emergency guardianship to be established to make [facility] location plans, going forward for this gentleman. He would like to be in Hospice. The last Hospitalist did speak to an kier boiler on 06/13/22, who is pursuing this whole process with the hospital. ALBERTO has said that his grand-nephew recently said he would be available to be guardian. That hospitalist spoke to the same kier boiler 06/25 and emergency guardianship with "grandson" by name (not legal) Miquel is being considered for POA. Working on a court appointed guardian. Meanwhile ALBERTO has been looking for an SUGAR for him to go to, and a facility requested that PT and OT instruct him on passive ROM, and document that encounter. This was done. Also, we ordered a Flu shot (for adult >65 y/o) as requested by an [facility]. He got the Flu shot on 07/05. There was a conference between his court appointed guardian, and 2 people who are related to his girlfriend on 07/12. Even though there is no legal marriage, they regard him as "" to this lady and feel that he is part of their family. They lost contact with him and have been unable to find them for the last few months because of his moving around getting a new cell phone. In addition to the guardian, those 2 people, it was social work and the last Hospitalist meeting. One of the relatives works for [employer] and is well aware of how the system works. That relative would like to be his power of kier boiler and that is being worked through as well. At this time we have found a care home for him and he is hopefully going there, to [place] this week. His current POA thru the court is approving this. Then down the road, if there is a new POA, the POA and family will be able to find a mcc that is willing to take him near them at [place]. (5) Delirium Impression: Resolved. We suspected it was from increased morphine causing increased sedation, in the face of his already present dementia and cognitive impairment. No fever and vitals stable. Exam was unchanged. CBC and CMP were unremarkable. Ativan was added and it seems to have worked to decrease his delirium. Will continue prn Ativan but scheduled Morphine - Current Meds Current Meds: Current Medications Generic Name Dose Route Start Last Admin Trade Name Freq PRN Reason Stop Dose Admin Acetaminophen 650 mg 05/29/22 14:15 07/08/22 12:16 Acetaminophen 325 Mg Tablet PO 650 mg Q4HR PRN Administration Pain 1 to 4, or Fever Docusate Sodium 250 - 500 mg 07/04/22 21:00 07/16/22 08:54 Docusate Sodium 250 Mg Capsule PO 250 mg BID MICHAELA Administration Enoxaparin Sodium 40 mg 05/30/22 09:00 07/16/22 08:55 Enoxaparin 40 Mg/0.4 Ml Syringe SUBQ 40 mg DAILY MICHAELA Administration Lorazepam 1 mg 07/13/22 18:33 07/13/22 20:41 Lorazepam 0.5 Mg Tablet SL 1 mg Q4H PRN Administration Anxiety Morphine Sulfate 7.5 mg 07/09/22 13:00 07/16/22 08:53 Morphine Ir 15 Mg Tablet PO 7.5 mg QID MICHAELA Administration Multi-Ingredient Ointment 1 applic 05/30/22 22:39 06/27/22 20:49 Zinc Oxide 20% Oint 30 Gm Tube TOP 1 applic PRN PRN Administration Skin Care Multivitamins/Minerals 1 tab 05/30/22 11:00 07/16/22 08:54 Multivitamin W/Minerals Tablet PO 1 tab DAILYWM MICHAELA Administration Oxycodone HCl 5 mg 06/23/22 09:56 07/16/22 04:36 Oxycodone 10 Mg/0.5 Ml Syringe PO 5 mg Q4HR PRN Administration PAIN Polyethylene Glycol 17 gm 05/30/22 09:00 07/16/22 08:55 Polyethylene Glycol 3350 17 Gm Packet PO 17 gm DAILY MICHAELA Administration Psyllium Hydrophilic Mucilloid 1 packet 06/21/22 08:53 07/11/22 12:37 Psyllium Packet PO 1 packet DAILY PRN Administration Constipation Senna 8.6 - 17.2 mg 07/04/22 17:00 07/16/22 08:54 Senna 8.6 Mg Tablet PO 8.6 mg BID MICHAELA Administration - Lab Result Fish Bone Diagrams: 07/13/22 08:19 07/13/22 08:19 Subjective - Subjective Patient Reports: Pain (In R axilla on and off) Objective Vital Signs: Vital Signs - 24 hr 07/15/22 07/16/22 07/16/22 15:53 08:06 11:04 Temperature 37.0 C 36.6 C Heart Rate [ 63 60 69 Brachial] Respiratory 16 16 Rate Blood Pressure 108/45 L [Left Brachial artery] Blood Pressure 115/50 L [Right Brachial artery] O2 Saturation 93 93 Oxygen O2 Source Room air I&O (Last 24 Hrs): Intake and Output Totals x24h 07/14/22 07/15/22 07/16/22 23:59 23:59 23:59 Intake Total 1000 670 240 Output Total 350 425 200 Balance 650 245 40 General: Alert (He was asleep, awoke to name and conversed normally.) HEENT: Mucous membr. moist/pink, Other (Poor dentition, missing teeth (since admission)) Neuro: Alert, Non Focal, Other (Poor memory) Cardiovascular: Regular rate Respiratory: No respiratory distress Abdomen: Soft Extremities: No edema - Results Results: Laboratory Results WBC 8.4 x10^3/uL (4.8-10.8) 07/13/22 08:19 RBC 3.87 10^6/uL (4.70-6.10) L 07/13/22 08:19 Hgb 9.7 g/dL (14.0-18.0) L 07/13/22 08:19 Hct 32.7 % (42.0-52.0) L 07/13/22 08:19 MCV 84.5 fL (80.0-94.0) 07/13/22 08:19 MCH 25.1 pg (27.0-31.0) L 07/13/22 08:19 MCHC 29.7 g/dL (32.0-36.0) L 07/13/22 08:19 RDW 15.9 % (12.0-15.0) H 07/13/22 08:19 Plt Count 543 10^3/uL (130-450) H 07/13/22 08:19 MPV 8.6 fL (7.4-11.4) 07/13/22 08:19 Neut # (Auto) 5.7 10^3/uL (1.5-6.6) 07/13/22 08:19 Lymph # (Auto) 1.4 10^3/uL (1.5-3.5) L 07/13/22 08:19 [place] # (Auto) 1.0 10^3/uL (0.0-1.0) 07/13/22 08:19 Eos # (Auto) 0.1 10^3/uL (0.0-0.7) 07/13/22 08:19 Baso # (Auto) 0.1 10^3/uL (0.0-0.1) 07/13/22 08:19 Absolute Nucleated RBC 0.00 x10^3/uL 07/13/22 08:19 Nucleated RBC % 0.0 /100WBC 07/13/22 08:19 PT 13.8 secs (9.9-12.6) H 05/30/22 04:50 INR 1.3 (0.8-1.2) H 05/30/22 04:50 Sodium 133 mmol/L (135-145) L 07/13/22 08:19 Potassium 3.9 mmol/L (3.5-5.0) 07/13/22 08:19 Chloride 94 mmol/L (101-111) L 07/13/22 08:19 Carbon Dioxide 27 mmol/L (21-32) 07/13/22 08:19 Anion Gap 12.0 (6-13) 07/13/22 08:19 BUN 18 mg/dL (6-20) 07/13/22 08:19 Creatinine 0.8 mg/dL (0.6-1.2) 07/13/22 08:19 Estimated GFR (MDRD) 93 (>89) 07/13/22 08:19 Glucose 94 mg/dL (70-100) 07/13/22 08:19 Calcium 9.1 mg/dL (8.5-10.3) 07/13/22 08:19 Phosphorus 1.1 mg/dL (2.5-4.6) L 05/30/22 04:50 Magnesium 2.1 mg/dL (1.7-2.8) 06/07/22 05:01 Total Bilirubin 0.8 mg/dL (0.2-1.0) 05/29/22 06:20 AST 20 IU/L (10-42) 05/29/22 06:20 ALT 17 IU/L (10-60) 05/29/22 06:20 Alkaline Phosphatase 58 IU/L (42-121) 05/29/22 06:20 Total Creatine Kinase 87 IU/L (22-269) 05/28/22 11:50 Total Protein 6.4 g/dL (6.7-8.2) L 05/29/22 06:20 Albumin 2.5 g/dL (3.2-5.5) L 05/29/22 06:20 Globulin 3.9 g/dL (2.1-4.2) 05/29/22 06:20 Albumin/Globulin Ratio 0.6 (1.0-2.2) L 05/29/22 06:20 Lipase 35 U/L (22-51) 05/29/22 06:20 TSH 2.68 uIU/mL (0.34-5.60) 05/30/22 04:50 Urine Color DARK YELLOW 05/28/22 12:07 Urine Clarity CLEAR (CLEAR) 05/28/22 12:07 Urine pH 6.0 PH (5.0-7.5) 05/28/22 12:07 Ur Specific [place] 1.025 (1.002-1.030) 05/28/22 12:07 Urine Protein 30 mg/dL (NEGATIVE) H 05/28/22 12:07 Urine Glucose (UA) NEGATIVE mg/dL (NEGATIVE) 05/28/22 12:07 Urine Ketones 15 mg/dL (NEGATIVE) H 05/28/22 12:07 Urine Occult Blood LARGE (NEGATIVE) H 05/28/22 12:07 Urine Nitrite NEGATIVE (NEGATIVE) 05/28/22 12:07 Urine Bilirubin NEGATIVE (NEGATIVE) 05/28/22 12:07 Urine Urobilinogen 1 (NORMAL) E.U./dL (NORMAL) 05/28/22 12:07 Ur Leukocyte Esterase NEGATIVE (NEGATIVE) 05/28/22 12:07 Urine RBC TNTC /HPF (0-5) H 05/28/22 12:07 Urine WBC 6-10 /HPF (0-3) H 05/28/22 12:07 Ur Epithelial Cells MOD Transitional /HPF (<= Few) H 05/28/22 12:07 Ur Squamous Epith Cells FEW Squamous (<= Few) 05/28/22 12:07 Urine Bacteria Few /HPF (None Seen) 05/28/22 12:07 Urine Casts 6-10 Hyaline Casts /LPF 05/28/22 12:07 Ur Microscopic Review INDICATED 05/28/22 12:07 Urine Culture Comments NOT INDICATED 05/28/22 12:07 Coronavirus (PCR) NEGATIVE 05/29/22 14:20 - Procedures Procedures: Procedures ENDO RECTUM POLYPECTOMY (04/27/15) ENDOSC POLYPECTOMY OF LG INTEST (04/27/15) EXCISION OF ASCENDING COLON, ENDO, DIAGN (05/02/17) EXCISION OF DESCENDING COLON, ENDO, DIAGN (05/02/17) EXCISION OF LEFT LOWER LEG SKIN, EXTERNAL APPROACH, DIAGN (11/16/20) EXCISION OF TRANSVERSE COLON, ENDO, DIAGN (05/02/17)
[2022-07-17] MEDS: oxyCODONE 10 MG/0.5 ML SYRINGE PO PRN (06:18)
[2022-07-17] MEDS: polyethylene glycoL 3350 17 GM PACKET PO SCH (08:01)
[2022-07-17] MEDS: MORPHINE IR 15 MG TABLET PO SCH ×4 (08:02→22:18)
[2022-07-17] MEDS: DOCUSATE SODIUM 250 MG CAPSULE PO SCH ×2 (08:02→21:47)
[2022-07-17] MEDS: SENNA 8.6 MG TABLET PO SCH ×2 (08:02→21:47)
[2022-07-17] MEDS: ENOXAPARIN 40 MG/0.4 ML SYRINGE SUBQ SCH (08:03)
[2022-07-17] MEDS: MULTIVITAMIN W/MINERALS TABLET PO SCH (08:05)
--- NOTE | 2022-07-17 12:25 | PROVIDER PROGRESS NOTE ---
Assessment/Plan - Problem List (1) Metastatic lung cancer (metastasis from lung to other site) Qualifiers: Qualified Code(s): C34.90 - Malignant neoplasm of unspecified part of unspecified bronchus or lung Assessment/Plan: He has a lung neoplasm in the right lower lung. This tumor is eroding into his R rib cage (and you can actually put your finger on the outside of his chest wall to feel it). He has had a profound decrease in functional status, has cachexia, and had near immobility when he came into the hospital. He has improved in that he is now eating, gained a little weight, and is able to get up and move around the room a bit, and worked with PT and OT and met the goals. However, in the last 2 weeks he is slowly starting to fade again. Does not want to get out of bed. Is eating less because the pain is getting worse. He lived alone and therefore he can no longer be safely discharged to there. He was started on scheduled oral morphine. Oxycodone is also available prn. (2) Fatigue Better pain control. He did not want a get out of bed for his meals, says he was too tired. He was on 3 times daily scheduled morphine so we reduced to twice daily. Fatigue really did not get much better and pain got worse. So we increased the morphine to 3 times daily again. 07/09, he told me that the morphine is "a puff". It immediately takes away the pain but it does not last very long. We increased morphine to 4 times a day in this terminally ill gentleman on 07/09 Pain is better controlled since then. He feels more relief and is not as severe and stabbing (3) Severe protein calorie malnutrition He has severe protein calorie malnutrition, but overall we think he will succumb to his neoplasm. We checked routine labs on 07/13, since none had been done for over a week, and they were all stable. No intervention. (4) Cognitive impairment He has cognitive impairment that renders him unable to make his own decisions. He lived alone and therefore can no longer be safely discharged to there. We are awaiting an emergency guardianship to be established to make [facility] location plans, going forward for this gentleman. He would like to be in Hospice. The last Hospitalist did speak to an commercial real estate attorney on 06/13/22, who is pursuing this whole process with the hospital. ALBERTO has said that his grand-nephew recently said he would be available to be guardian. That hospitalist spoke to the same commercial real estate attorney 06/25 and emergency guardianship with "grandson" by name (not legal) Miquel is being considered for POA. Working on a court appointed guardian. Meanwhile ALBERTO has been looking for an SUGAR for him to go to, and a facility requested that PT and OT instruct him on passive ROM, and document that encounter. This was done. Also, we ordered a Flu shot (for adult >65 y/o) as requested by an [facility]. He got the Flu shot on 07/05. There was a conference between his court appointed guardian, and 2 people who are related to his girlfriend on 07/12. Even though there is no legal marriage, they regard him as "" to this lady and feel that he is part of their family. They lost contact with him and have been unable to find them for the last few months because of his moving around getting a new cell phone. In addition to the guardian, those 2 people, it was social work and the last Hospitalist meeting. One of the relatives works for [employer] and is well aware of how the system works. That relative would like to be his power of commercial real estate attorney and that is being worked through as well. At this time we have found a half-way for him and he is hopefully going there, to [place] this week. His current POA thru the court is approving this. Then down the road, if there is a new POA, the POA and family will be able to find a custodial that is willing to take him near them at [place]. (5) Delirium Impression: Resolved. We suspected it was from increased morphine causing increased sedation, in the face of his already present dementia and cognitive impairment. No fever and vitals stable. Exam was unchanged. CBC and CMP were unremarkable. Ativan was added and it seems to have worked to decrease his delirium. Will continue prn Ativan but scheduled Morphine - Current Meds Current Meds: Current Medications Generic Name Dose Route Start Last Admin Trade Name Freq PRN Reason Stop Dose Admin Acetaminophen 650 mg 05/29/22 14:15 07/08/22 12:16 Acetaminophen 325 Mg Tablet PO 650 mg Q4HR PRN Administration Pain 1 to 4, or Fever Docusate Sodium 250 - 500 mg 07/04/22 21:00 07/17/22 08:02 Docusate Sodium 250 Mg Capsule PO 250 mg BID MICHAELA Administration Enoxaparin Sodium 40 mg 05/30/22 09:00 07/17/22 08:03 Enoxaparin 40 Mg/0.4 Ml Syringe SUBQ 40 mg DAILY MICHAELA Administration Lorazepam 1 mg 07/13/22 18:33 07/13/22 20:41 Lorazepam 0.5 Mg Tablet SL 1 mg Q4H PRN Administration Anxiety Morphine Sulfate 7.5 mg 07/09/22 13:00 07/17/22 08:02 Morphine Ir 15 Mg Tablet PO 7.5 mg QID MICHAELA Administration Multi-Ingredient Ointment 1 applic 05/30/22 22:39 06/27/22 20:49 Zinc Oxide 20% Oint 30 Gm Tube TOP 1 applic PRN PRN Administration Skin Care Multivitamins/Minerals 1 tab 05/30/22 11:00 07/17/22 08:05 Multivitamin W/Minerals Tablet PO 1 tab DAILYWM MICHAELA Administration Oxycodone HCl 5 mg 06/23/22 09:56 07/17/22 06:18 Oxycodone 10 Mg/0.5 Ml Syringe PO 5 mg Q4HR PRN Administration PAIN Polyethylene Glycol 17 gm 05/30/22 09:00 07/17/22 08:01 Polyethylene Glycol 3350 17 Gm Packet PO 17 gm DAILY MICHAELA Administration Psyllium Hydrophilic Mucilloid 1 packet 06/21/22 08:53 07/11/22 12:37 Psyllium Packet PO 1 packet DAILY PRN Administration Constipation Senna 8.6 - 17.2 mg 07/04/22 17:00 07/17/22 08:02 Senna 8.6 Mg Tablet PO 8.6 mg BID MICHAELA Administration - Lab Result Fish Bone Diagrams: 07/13/22 08:19 07/13/22 08:19 Subjective - Subjective Patient Reports: Resting Comfortably, No Complaints Objective Vital Signs: Vital Signs - 24 hr 07/16/22 07/17/22 15:46 08:00 Temperature 37.1 C 36.6 C Heart Rate [ 65 63 Brachial] Respiratory 16 20 Rate Blood Pressure 103/39 L [Left Brachial artery] Blood Pressure 114/51 L [Right Brachial artery] O2 Saturation 93 94 Oxygen O2 Source Room air I&O (Last 24 Hrs): Intake and Output Totals x24h 07/15/22 07/16/22 07/17/22 23:59 23:59 23:59 Intake Total 670 650 640 Output Total 425 525 250 Balance 245 125 390 General: Alert, Other (Mostly in bed, napping, awakens and converses) HEENT: Mucous membr. moist/pink Neck: Supple Neuro: Non Focal, Other (Poor memory) Cardiovascular: Regular rate Respiratory: No respiratory distress Abdomen: Soft Extremities: No edema - Results Results: Laboratory Results WBC 8.4 x10^3/uL (4.8-10.8) 07/13/22 08:19 RBC 3.87 10^6/uL (4.70-6.10) L 07/13/22 08:19 Hgb 9.7 g/dL (14.0-18.0) L 07/13/22 08:19 Hct 32.7 % (42.0-52.0) L 07/13/22 08:19 MCV 84.5 fL (80.0-94.0) 07/13/22 08:19 MCH 25.1 pg (27.0-31.0) L 07/13/22 08:19 MCHC 29.7 g/dL (32.0-36.0) L 07/13/22 08:19 RDW 15.9 % (12.0-15.0) H 07/13/22 08:19 Plt Count 543 10^3/uL (130-450) H 07/13/22 08:19 MPV 8.6 fL (7.4-11.4) 07/13/22 08:19 Neut # (Auto) 5.7 10^3/uL (1.5-6.6) 07/13/22 08:19 Lymph # (Auto) 1.4 10^3/uL (1.5-3.5) L 07/13/22 08:19 [place] # (Auto) 1.0 10^3/uL (0.0-1.0) 07/13/22 08:19 Eos # (Auto) 0.1 10^3/uL (0.0-0.7) 07/13/22 08:19 Baso # (Auto) 0.1 10^3/uL (0.0-0.1) 07/13/22 08:19 Absolute Nucleated RBC 0.00 x10^3/uL 07/13/22 08:19 Nucleated RBC % 0.0 /100WBC 07/13/22 08:19 PT 13.8 secs (9.9-12.6) H 05/30/22 04:50 INR 1.3 (0.8-1.2) H 05/30/22 04:50 Sodium 133 mmol/L (135-145) L 07/13/22 08:19 Potassium 3.9 mmol/L (3.5-5.0) 07/13/22 08:19 Chloride 94 mmol/L (101-111) L 07/13/22 08:19 Carbon Dioxide 27 mmol/L (21-32) 07/13/22 08:19 Anion Gap 12.0 (6-13) 07/13/22 08:19 BUN 18 mg/dL (6-20) 07/13/22 08:19 Creatinine 0.8 mg/dL (0.6-1.2) 07/13/22 08:19 Estimated GFR (MDRD) 93 (>89) 07/13/22 08:19 Glucose 94 mg/dL (70-100) 07/13/22 08:19 Calcium 9.1 mg/dL (8.5-10.3) 07/13/22 08:19 Phosphorus 1.1 mg/dL (2.5-4.6) L 05/30/22 04:50 Magnesium 2.1 mg/dL (1.7-2.8) 06/07/22 05:01 Total Bilirubin 0.8 mg/dL (0.2-1.0) 05/29/22 06:20 AST 20 IU/L (10-42) 05/29/22 06:20 ALT 17 IU/L (10-60) 05/29/22 06:20 Alkaline Phosphatase 58 IU/L (42-121) 05/29/22 06:20 Total Creatine Kinase 87 IU/L (22-269) 05/28/22 11:50 Total Protein 6.4 g/dL (6.7-8.2) L 05/29/22 06:20 Albumin 2.5 g/dL (3.2-5.5) L 05/29/22 06:20 Globulin 3.9 g/dL (2.1-4.2) 05/29/22 06:20 Albumin/Globulin Ratio 0.6 (1.0-2.2) L 05/29/22 06:20 Lipase 35 U/L (22-51) 05/29/22 06:20 TSH 2.68 uIU/mL (0.34-5.60) 05/30/22 04:50 Urine Color DARK YELLOW 05/28/22 12:07 Urine Clarity CLEAR (CLEAR) 05/28/22 12:07 Urine pH 6.0 PH (5.0-7.5) 05/28/22 12:07 Ur Specific [place] 1.025 (1.002-1.030) 05/28/22 12:07 Urine Protein 30 mg/dL (NEGATIVE) H 05/28/22 12:07 Urine Glucose (UA) NEGATIVE mg/dL (NEGATIVE) 05/28/22 12:07 Urine Ketones 15 mg/dL (NEGATIVE) H 05/28/22 12:07 Urine Occult Blood LARGE (NEGATIVE) H 05/28/22 12:07 Urine Nitrite NEGATIVE (NEGATIVE) 05/28/22 12:07 Urine Bilirubin NEGATIVE (NEGATIVE) 05/28/22 12:07 Urine Urobilinogen 1 (NORMAL) E.U./dL (NORMAL) 05/28/22 12:07 Ur Leukocyte Esterase NEGATIVE (NEGATIVE) 05/28/22 12:07 Urine RBC TNTC /HPF (0-5) H 05/28/22 12:07 Urine WBC 6-10 /HPF (0-3) H 05/28/22 12:07 Ur Epithelial Cells MOD Transitional /HPF (<= Few) H 05/28/22 12:07 Ur Squamous Epith Cells FEW Squamous (<= Few) 05/28/22 12:07 Urine Bacteria Few /HPF (None Seen) 05/28/22 12:07 Urine Casts 6-10 Hyaline Casts /LPF 05/28/22 12:07 Ur Microscopic Review INDICATED 05/28/22 12:07 Urine Culture Comments NOT INDICATED 05/28/22 12:07 Coronavirus (PCR) NEGATIVE 05/29/22 14:20 - Procedures Procedures: Procedures ENDO RECTUM POLYPECTOMY (04/27/15) ENDOSC POLYPECTOMY OF LG INTEST (04/27/15) EXCISION OF ASCENDING COLON, ENDO, DIAGN (05/02/17) EXCISION OF DESCENDING COLON, ENDO, DIAGN (05/02/17) EXCISION OF LEFT LOWER LEG SKIN, EXTERNAL APPROACH, DIAGN (11/16/20) EXCISION OF TRANSVERSE COLON, ENDO, DIAGN (05/02/17)
[2022-07-18] MEDS: MORPHINE IR 15 MG TABLET PO SCH ×4 (08:20→20:40)
[2022-07-18] MEDS: SENNA 8.6 MG TABLET PO SCH ×2 (08:22→20:40)
[2022-07-18] MEDS: DOCUSATE SODIUM 250 MG CAPSULE PO SCH ×2 (08:22→20:39)
[2022-07-18] MEDS: polyethylene glycoL 3350 17 GM PACKET PO SCH (08:24)
[2022-07-18] MEDS: ENOXAPARIN 40 MG/0.4 ML SYRINGE SUBQ SCH (08:28)
[2022-07-18] MEDS: MULTIVITAMIN W/MINERALS TABLET PO SCH (09:06)
--- NOTE | 2022-07-18 11:42 | PROVIDER PROGRESS NOTE ---
Assessment/Plan - Problem List (1) Metastatic lung cancer (metastasis from lung to other site) Qualifiers: Qualified Code(s): C34.90 - Malignant neoplasm of unspecified part of unspecified bronchus or lung Assessment/Plan: He has a lung neoplasm in the right lower lung. This tumor is eroding into his R rib cage (and you can actually put your finger on the outside of his chest wall to feel it). He has had a profound decrease in functional status, has cachexia, and had near immobility when he came into the hospital. He has improved in that he is now eating, gained a little weight, and is able to get up and move around the room a bit, and worked with PT and OT and met the goals. However, in the last 2 weeks he is slowly starting to fade again. Does not want to get out of bed. Is eating less because the pain is getting worse. He lived alone and therefore he can no longer be safely discharged to there. He was started on scheduled oral morphine. Oxycodone is also available prn. (2) Fatigue Better pain control. He did not want a get out of bed for his meals, says he was too tired. He was on 3 times daily scheduled morphine so we reduced to twice daily. Fatigue really did not get much better and pain got worse. So we increased the morphine to 3 times daily again. 07/09, he told me that the morphine is "a puff". It immediately takes away the pain but it does not last very long. We increased morphine to 4 times a day in this terminally ill gentleman on 07/09 Pain is better controlled since then. He feels more relief and is not as severe and stabbing (3) Severe protein calorie malnutrition He has severe protein calorie malnutrition, but overall we think he will succumb to his neoplasm. We checked routine labs on 07/13, since none had been done for over a week, and they were all stable. No intervention. (4) Cognitive impairment He has cognitive impairment that renders him unable to make his own decisions. He lived alone and therefore can no longer be safely discharged to there. We are awaiting an emergency guardianship to be established to make [facility] location plans, going forward for this gentleman. He would like to be in Hospice. The last Hospitalist did speak to an attorney at law on 06/13/22, who is pursuing this whole process with the hospital. ALBERTO has said that his grand-nephew recently said he would be available to be guardian. That hospitalist spoke to the same attorney at law 06/25 and emergency guardianship with "grandson" by name (not legal) Miquel is being considered for POA. Working on a court appointed guardian. Meanwhile ALBERTO has been looking for an SUGAR for him to go to, and a facility requested that PT and OT instruct him on passive ROM, and document that encounter. This was done. Also, we ordered a Flu shot (for adult >65 y/o) as requested by an CUSTODIAL. He got the Flu shot on 07/05. There was a conference between his court appointed guardian, and 2 people who are related to his girlfriend on 07/12. Even though there is no legal marriage, they regard him as "" to this lady and feel that he is part of their family. They lost contact with him and have been unable to find them for the last few months because of his moving around getting a new cell phone. In addition to the guardian, those 2 people, it was social work and the last Hospitalist meeting. One of the relatives works for [employer] and is well aware of how the system works. That relative would like to be his power of attorney at law and that is being worked through as well. At this time we have found a nursing home for him and he is hopefully going there, to [place] this week. His current POA thru the court is approving this. Then down the road, if there is a new POA, the POA and family will be able to find a alf that is willing to take him near them at [place]. (5) Delirium Impression: Resolved. We suspected it was from increased morphine causing increased sedation, in the face of his already present dementia and cognitive impairment. No fever and vitals stable. Exam was unchanged. CBC and CMP were unremarkable. Ativan was added and it seems to have worked to decrease his delirium. Will continue prn Ativan but scheduled Morphine - Current Meds Current Meds: Current Medications Generic Name Dose Route Start Last Admin Trade Name Freq PRN Reason Stop Dose Admin Acetaminophen 650 mg 05/29/22 14:15 07/08/22 12:16 Acetaminophen 325 Mg Tablet PO 650 mg Q4HR PRN Administration Pain 1 to 4, or Fever Docusate Sodium 250 - 500 mg 07/04/22 21:00 07/18/22 08:22 Docusate Sodium 250 Mg Capsule PO 250 mg BID MICHAELA Administration Enoxaparin Sodium 40 mg 05/30/22 09:00 07/18/22 08:28 Enoxaparin 40 Mg/0.4 Ml Syringe SUBQ 40 mg DAILY MICHAELA Administration Lorazepam 1 mg 07/13/22 18:33 07/13/22 20:41 Lorazepam 0.5 Mg Tablet SL 1 mg Q4H PRN Administration Anxiety Morphine Sulfate 7.5 mg 07/09/22 13:00 07/18/22 08:20 Morphine Ir 15 Mg Tablet PO 7.5 mg QID MICHAELA Administration Multi-Ingredient Ointment 1 applic 05/30/22 22:39 06/27/22 20:49 Zinc Oxide 20% Oint 30 Gm Tube TOP 1 applic PRN PRN Administration Skin Care Multivitamins/Minerals 1 tab 05/30/22 11:00 07/18/22 09:06 Multivitamin W/Minerals Tablet PO 1 tab DAILYWM MICHAELA Administration Oxycodone HCl 5 mg 06/23/22 09:56 07/17/22 06:18 Oxycodone 10 Mg/0.5 Ml Syringe PO 5 mg Q4HR PRN Administration PAIN Polyethylene Glycol 17 gm 05/30/22 09:00 07/18/22 08:24 Polyethylene Glycol 3350 17 Gm Packet PO Not Given DAILY [facility] Psyllium Hydrophilic Mucilloid 1 packet 06/21/22 08:53 07/11/22 12:37 Psyllium Packet PO 1 packet DAILY PRN Administration Constipation Senna 8.6 - 17.2 mg 07/04/22 17:00 07/18/22 08:22 Senna 8.6 Mg Tablet PO 8.6 mg BID MICHAELA Administration - Lab Result Fish Bone Diagrams: 07/13/22 08:19 07/13/22 08:19 Subjective - Subjective Patient Reports: Resting Comfortably, No Complaints Objective Vital Signs: Vital Signs - 24 hr 07/17/22 07/18/22 15:37 10:02 Temperature 36.8 C 36.4 C L Heart Rate [ 64 63 Brachial] Respiratory 24 16 Rate Blood Pressure 113/54 L 95/44 L [Right Brachial artery] O2 Saturation 94 97 Oxygen O2 Source Room air I&O (Last 24 Hrs): Intake and Output Totals x24h 07/16/22 07/17/22 07/18/22 23:59 23:59 23:59 Intake Total 650 1088 160 Output Total 525 675 150 Balance 125 413 10 General: Other (Asleep) HEENT: Mucous membr. moist/pink Neck: Supple Neuro: Alert, Non Focal Cardiovascular: Regular rate Respiratory: No respiratory distress Abdomen: Soft Extremities: No edema, No tenderness/swelling - Results Results: Laboratory Results WBC 8.4 x10^3/uL (4.8-10.8) 07/13/22 08:19 RBC 3.87 10^6/uL (4.70-6.10) L 07/13/22 08:19 Hgb 9.7 g/dL (14.0-18.0) L 07/13/22 08:19 Hct 32.7 % (42.0-52.0) L 07/13/22 08:19 MCV 84.5 fL (80.0-94.0) 07/13/22 08:19 MCH 25.1 pg (27.0-31.0) L 07/13/22 08:19 MCHC 29.7 g/dL (32.0-36.0) L 07/13/22 08:19 RDW 15.9 % (12.0-15.0) H 07/13/22 08:19 Plt Count 543 10^3/uL (130-450) H 07/13/22 08:19 MPV 8.6 fL (7.4-11.4) 07/13/22 08:19 Neut # (Auto) 5.7 10^3/uL (1.5-6.6) 07/13/22 08:19 Lymph # (Auto) 1.4 10^3/uL (1.5-3.5) L 07/13/22 08:19 [place] # (Auto) 1.0 10^3/uL (0.0-1.0) 07/13/22 08:19 Eos # (Auto) 0.1 10^3/uL (0.0-0.7) 07/13/22 08:19 Baso # (Auto) 0.1 10^3/uL (0.0-0.1) 07/13/22 08:19 Absolute Nucleated RBC 0.00 x10^3/uL 07/13/22 08:19 Nucleated RBC % 0.0 /100WBC 07/13/22 08:19 PT 13.8 secs (9.9-12.6) H 05/30/22 04:50 INR 1.3 (0.8-1.2) H 05/30/22 04:50 Sodium 133 mmol/L (135-145) L 07/13/22 08:19 Potassium 3.9 mmol/L (3.5-5.0) 07/13/22 08:19 Chloride 94 mmol/L (101-111) L 07/13/22 08:19 Carbon Dioxide 27 mmol/L (21-32) 07/13/22 08:19 Anion Gap 12.0 (6-13) 07/13/22 08:19 BUN 18 mg/dL (6-20) 07/13/22 08:19 Creatinine 0.8 mg/dL (0.6-1.2) 07/13/22 08:19 Estimated GFR (MDRD) 93 (>89) 07/13/22 08:19 Glucose 94 mg/dL (70-100) 07/13/22 08:19 Calcium 9.1 mg/dL (8.5-10.3) 07/13/22 08:19 Phosphorus 1.1 mg/dL (2.5-4.6) L 05/30/22 04:50 Magnesium 2.1 mg/dL (1.7-2.8) 06/07/22 05:01 Total Bilirubin 0.8 mg/dL (0.2-1.0) 05/29/22 06:20 AST 20 IU/L (10-42) 05/29/22 06:20 ALT 17 IU/L (10-60) 05/29/22 06:20 Alkaline Phosphatase 58 IU/L (42-121) 05/29/22 06:20 Total Creatine Kinase 87 IU/L (22-269) 05/28/22 11:50 Total Protein 6.4 g/dL (6.7-8.2) L 05/29/22 06:20 Albumin 2.5 g/dL (3.2-5.5) L 05/29/22 06:20 Globulin 3.9 g/dL (2.1-4.2) 05/29/22 06:20 Albumin/Globulin Ratio 0.6 (1.0-2.2) L 05/29/22 06:20 Lipase 35 U/L (22-51) 05/29/22 06:20 TSH 2.68 uIU/mL (0.34-5.60) 05/30/22 04:50 Urine Color DARK YELLOW 05/28/22 12:07 Urine Clarity CLEAR (CLEAR) 05/28/22 12:07 Urine pH 6.0 PH (5.0-7.5) 05/28/22 12:07 Ur Specific [place] 1.025 (1.002-1.030) 05/28/22 12:07 Urine Protein 30 mg/dL (NEGATIVE) H 05/28/22 12:07 Urine Glucose (UA) NEGATIVE mg/dL (NEGATIVE) 05/28/22 12:07 Urine Ketones 15 mg/dL (NEGATIVE) H 05/28/22 12:07 Urine Occult Blood LARGE (NEGATIVE) H 05/28/22 12:07 Urine Nitrite NEGATIVE (NEGATIVE) 05/28/22 12:07 Urine Bilirubin NEGATIVE (NEGATIVE) 05/28/22 12:07 Urine Urobilinogen 1 (NORMAL) E.U./dL (NORMAL) 05/28/22 12:07 Ur Leukocyte Esterase NEGATIVE (NEGATIVE) 05/28/22 12:07 Urine RBC TNTC /HPF (0-5) H 05/28/22 12:07 Urine WBC 6-10 /HPF (0-3) H 05/28/22 12:07 Ur Epithelial Cells MOD Transitional /HPF (<= Few) H 05/28/22 12:07 Ur Squamous Epith Cells FEW Squamous (<= Few) 05/28/22 12:07 Urine Bacteria Few /HPF (None Seen) 05/28/22 12:07 Urine Casts 6-10 Hyaline Casts /LPF 05/28/22 12:07 Ur Microscopic Review INDICATED 05/28/22 12:07 Urine Culture Comments NOT INDICATED 05/28/22 12:07 Coronavirus (PCR) NEGATIVE 05/29/22 14:20 - Procedures Procedures: Procedures ENDO RECTUM POLYPECTOMY (04/27/15) ENDOSC POLYPECTOMY OF LG INTEST (04/27/15) EXCISION OF ASCENDING COLON, ENDO, DIAGN (05/02/17) EXCISION OF DESCENDING COLON, ENDO, DIAGN (05/02/17) EXCISION OF LEFT LOWER LEG SKIN, EXTERNAL APPROACH, DIAGN (11/16/20) EXCISION OF TRANSVERSE COLON, ENDO, DIAGN (05/02/17)
[2022-07-18] MEDS: oxyCODONE 10 MG/0.5 ML SYRINGE PO PRN (15:37)
[2022-07-19] MEDS: LORazepam 0.5 MG TABLET SL PRN (00:06)
[2022-07-19] MEDS: MORPHINE IR 15 MG TABLET PO SCH ×4 (09:07→22:18)
[2022-07-19] MEDS: polyethylene glycoL 3350 17 GM PACKET PO SCH (09:08)
[2022-07-19] MEDS: MULTIVITAMIN W/MINERALS TABLET PO SCH (09:08)
[2022-07-19] MEDS: ENOXAPARIN 40 MG/0.4 ML SYRINGE SUBQ SCH (09:08)
[2022-07-19] MEDS: SENNA 8.6 MG TABLET PO SCH ×2 (09:08→22:17)
[2022-07-19] MEDS: DOCUSATE SODIUM 250 MG CAPSULE PO SCH ×2 (09:08→22:17)
--- NOTE | 2022-07-19 14:33 | PROVIDER PROGRESS NOTE ---
Assessment/Plan - Problem List (1) Metastatic lung cancer (metastasis from lung to other site) Qualifiers: Qualified Code(s): C34.90 - Malignant neoplasm of unspecified part of unspecified bronchus or lung Assessment/Plan: He has a lung neoplasm in the right lower lung. This tumor is eroding into his R rib cage (and you can actually put your finger on the outside of his chest wall to feel it). He has had a profound decrease in functional status, has cachexia, and had near immobility when he came into the hospital. He has improved in that he is now eating, gained a little weight, and is able to get up and move around the room a bit, and worked with PT and OT and met the goals. However, in the last 2 weeks he is slowly starting to fade again. Does not want to get out of bed. Is eating less because the pain is getting worse. He lived alone and therefore he can no longer be safely discharged to there. He was started on scheduled oral morphine. Oxycodone is also available prn. (2) Fatigue Better pain control. He did not want a get out of bed for his meals, says he was too tired. He was on 3 times daily scheduled morphine so we reduced to twice daily. Fatigue really did not get much better and pain got worse. So we increased the morphine to 3 times daily again. 07/09, he told me that the morphine is "a puff". It immediately takes away the pain but it does not last very long. We increased morphine to 4 times a day in this terminally ill gentleman on 07/09 Pain is better controlled since then. He feels more relief and is not as severe and stabbing (3) Severe protein calorie malnutrition He has severe protein calorie malnutrition, but overall we think he will succumb to his neoplasm. We checked routine labs on 07/13, since none had been done for over a week, and they were all stable. No intervention. (4) Cognitive impairment He has cognitive impairment that renders him unable to make his own decisions. He lived alone and therefore can no longer be safely discharged to there. We are awaiting an emergency guardianship to be established to make [facility] location plans, going forward for this gentleman. He would like to be in Hospice. The last Hospitalist did speak to an trial attorney on 06/13/22, who is pursuing this whole process with the hospital. ALBERTO has said that his grand-nephew recently said he would be available to be guardian. That hospitalist spoke to the same trial attorney 06/25 and emergency guardianship with "grandson" by name (not legal) Miquel is being considered for POA. Working on a court appointed guardian. Meanwhile ALBERTO has been looking for an SUGAR for him to go to, and a facility requested that PT and OT instruct him on passive ROM, and document that encounter. This was done. Also, we ordered a Flu shot (for adult >65 y/o) as requested by an SNF. He got the Flu shot on 07/05. There was a conference between his court appointed guardian, and 2 people who are related to his girlfriend on 07/12. Even though there is no legal marriage, they regard him as "" to this lady and feel that he is part of their family. They lost contact with him and have been unable to find them for the last few months because of his moving around getting a new cell phone. In addition to the guardian, those 2 people, it was social work and the last Hospitalist meeting. One of the relatives works for [employer] and is well aware of how the system works. That relative would like to be his power of trial attorney and that is being worked through as well. At this time we have found a chcf for him and he is hopefully going there, to [place] this week. His current POA thru the court is approving this. Then down the road, if there is a new POA, the POA and family will be able to find a fpc that is willing to take him near them at [place]. (5) Delirium Impression: It happened again last night, improved with an Ativan dose. When it first happened a few days ago, we suspected it was from increased morph ine causing increased sedation, in the face of his already present dementia and cognitive impairment. There was no fever and vitals and exam were stable. Ativan was added and it seems to have worked to decrease his delirium. Will continue prn Ativan but scheduled Morphine - Current Meds Current Meds: Current Medications Generic Name Dose Route Start Last Admin Trade Name Freq PRN Reason Stop Dose Admin Acetaminophen 650 mg 05/29/22 14:15 07/08/22 12:16 Acetaminophen 325 Mg Tablet PO 650 mg Q4HR PRN Administration Pain 1 to 4, or Fever Docusate Sodium 250 - 500 mg 07/04/22 21:00 07/19/22 09:08 Docusate Sodium 250 Mg Capsule PO 250 mg BID MICHAELA Administration Enoxaparin Sodium 40 mg 05/30/22 09:00 07/19/22 09:08 Enoxaparin 40 Mg/0.4 Ml Syringe SUBQ 40 mg DAILY MICHAELA Administration Lorazepam 1 mg 07/13/22 18:33 07/19/22 00:06 Lorazepam 0.5 Mg Tablet SL 1 mg Q4H PRN Administration Anxiety Morphine Sulfate 7.5 mg 07/09/22 13:00 07/19/22 13:03 Morphine Ir 15 Mg Tablet PO 7.5 mg QID MICHAELA Administration Multi-Ingredient Ointment 1 applic 05/30/22 22:39 06/27/22 20:49 Zinc Oxide 20% Oint 30 Gm Tube TOP 1 applic PRN PRN Administration Skin Care Multivitamins/Minerals 1 tab 05/30/22 11:00 07/19/22 09:08 Multivitamin W/Minerals Tablet PO 1 tab DAILYWM MICHAELA Administration Oxycodone HCl 5 mg 06/23/22 09:56 07/18/22 15:37 Oxycodone 10 Mg/0.5 Ml Syringe PO 5 mg Q4HR PRN Administration PAIN Polyethylene Glycol 17 gm 05/30/22 09:00 07/19/22 09:08 Polyethylene Glycol 3350 17 Gm Packet PO 17 gm DAILY MICHAELA Administration Psyllium Hydrophilic Mucilloid 1 packet 06/21/22 08:53 07/11/22 12:37 Psyllium Packet PO 1 packet DAILY PRN Administration Constipation Senna 8.6 - 17.2 mg 07/04/22 17:00 07/19/22 09:08 Senna 8.6 Mg Tablet PO 8.6 mg BID MICHAELA Administration - Lab Result Fish Bone Diagrams: 07/13/22 08:19 07/13/22 08:19 Subjective - Subjective Patient Reports: Resting Comfortably, No Complaints Objective Vital Signs: Vital Signs - 24 hr 07/18/22 07/19/22 15:59 09:00 Temperature 36.4 C L 36.4 C L Heart Rate [ 64 62 Brachial] Respiratory 24 16 Rate Blood Pressure 109/51 L 119/53 L [Right Brachial artery] O2 Saturation 96 98 Oxygen O2 Source Room air I&O (Last 24 Hrs): Intake and Output Totals x24h 07/17/22 07/18/22 07/19/22 23:59 23:59 23:59 Intake Total 1088 510 300 Output Total 675 850 375 Balance 413 340 -03 General: Other (Asleep, awakens and converses, feeds himself.) HEENT: Mucous membr. moist/pink Neck: Supple Neuro: Alert, Non Focal Cardiovascular: Regular rate Respiratory: No respiratory distress Abdomen: Soft Extremities: No edema - Results Results: Laboratory Results WBC 8.4 x10^3/uL (4.8-10.8) 07/13/22 08:19 RBC 3.87 10^6/uL (4.70-6.10) L 07/13/22 08:19 Hgb 9.7 g/dL (14.0-18.0) L 07/13/22 08:19 Hct 32.7 % (42.0-52.0) L 07/13/22 08:19 MCV 84.5 fL (80.0-94.0) 07/13/22 08:19 MCH 25.1 pg (27.0-31.0) L 07/13/22 08:19 MCHC 29.7 g/dL (32.0-36.0) L 07/13/22 08:19 RDW 15.9 % (12.0-15.0) H 07/13/22 08:19 Plt Count 543 10^3/uL (130-450) H 07/13/22 08:19 MPV 8.6 fL (7.4-11.4) 07/13/22 08:19 Neut # (Auto) 5.7 10^3/uL (1.5-6.6) 07/13/22 08:19 Lymph # (Auto) 1.4 10^3/uL (1.5-3.5) L 07/13/22 08:19 [place] # (Auto) 1.0 10^3/uL (0.0-1.0) 07/13/22 08:19 Eos # (Auto) 0.1 10^3/uL (0.0-0.7) 07/13/22 08:19 Baso # (Auto) 0.1 10^3/uL (0.0-0.1) 07/13/22 08:19 Absolute Nucleated RBC 0.00 x10^3/uL 07/13/22 08:19 Nucleated RBC % 0.0 /100WBC 07/13/22 08:19 PT 13.8 secs (9.9-12.6) H 05/30/22 04:50 INR 1.3 (0.8-1.2) H 05/30/22 04:50 Sodium 133 mmol/L (135-145) L 07/13/22 08:19 Potassium 3.9 mmol/L (3.5-5.0) 07/13/22 08:19 Chloride 94 mmol/L (101-111) L 07/13/22 08:19 Carbon Dioxide 27 mmol/L (21-32) 07/13/22 08:19 Anion Gap 12.0 (6-13) 07/13/22 08:19 BUN 18 mg/dL (6-20) 07/13/22 08:19 Creatinine 0.8 mg/dL (0.6-1.2) 07/13/22 08:19 Estimated GFR (MDRD) 93 (>89) 07/13/22 08:19 Glucose 94 mg/dL (70-100) 07/13/22 08:19 Calcium 9.1 mg/dL (8.5-10.3) 07/13/22 08:19 Phosphorus 1.1 mg/dL (2.5-4.6) L 05/30/22 04:50 Magnesium 2.1 mg/dL (1.7-2.8) 06/07/22 05:01 Total Bilirubin 0.8 mg/dL (0.2-1.0) 05/29/22 06:20 AST 20 IU/L (10-42) 05/29/22 06:20 ALT 17 IU/L (10-60) 05/29/22 06:20 Alkaline Phosphatase 58 IU/L (42-121) 05/29/22 06:20 Total Creatine Kinase 87 IU/L (22-269) 05/28/22 11:50 Total Protein 6.4 g/dL (6.7-8.2) L 05/29/22 06:20 Albumin 2.5 g/dL (3.2-5.5) L 05/29/22 06:20 Globulin 3.9 g/dL (2.1-4.2) 05/29/22 06:20 Albumin/Globulin Ratio 0.6 (1.0-2.2) L 05/29/22 06:20 Lipase 35 U/L (22-51) 05/29/22 06:20 TSH 2.68 uIU/mL (0.34-5.60) 05/30/22 04:50 Urine Color DARK YELLOW 05/28/22 12:07 Urine Clarity CLEAR (CLEAR) 05/28/22 12:07 Urine pH 6.0 PH (5.0-7.5) 05/28/22 12:07 Ur Specific [place] 1.025 (1.002-1.030) 05/28/22 12:07 Urine Protein 30 mg/dL (NEGATIVE) H 05/28/22 12:07 Urine Glucose (UA) NEGATIVE mg/dL (NEGATIVE) 05/28/22 12:07 Urine Ketones 15 mg/dL (NEGATIVE) H 05/28/22 12:07 Urine Occult Blood LARGE (NEGATIVE) H 05/28/22 12:07 Urine Nitrite NEGATIVE (NEGATIVE) 05/28/22 12:07 Urine Bilirubin NEGATIVE (NEGATIVE) 05/28/22 12:07 Urine Urobilinogen 1 (NORMAL) E.U./dL (NORMAL) 05/28/22 12:07 Ur Leukocyte Esterase NEGATIVE (NEGATIVE) 05/28/22 12:07 Urine RBC TNTC /HPF (0-5) H 05/28/22 12:07 Urine WBC 6-10 /HPF (0-3) H 05/28/22 12:07 Ur Epithelial Cells MOD Transitional /HPF (<= Few) H 05/28/22 12:07 Ur Squamous Epith Cells FEW Squamous (<= Few) 05/28/22 12:07 Urine Bacteria Few /HPF (None Seen) 05/28/22 12:07 Urine Casts 6-10 Hyaline Casts /LPF 05/28/22 12:07 Ur Microscopic Review INDICATED 05/28/22 12:07 Urine Culture Comments NOT INDICATED 05/28/22 12:07 Coronavirus (PCR) NEGATIVE 05/29/22 14:20 - Procedures Procedures: Procedures ENDO RECTUM POLYPECTOMY (04/27/15) ENDOSC POLYPECTOMY OF LG INTEST (04/27/15) EXCISION OF ASCENDING COLON, ENDO, DIAGN (05/02/17) EXCISION OF DESCENDING COLON, ENDO, DIAGN (05/02/17) EXCISION OF LEFT LOWER LEG SKIN, EXTERNAL APPROACH, DIAGN (11/16/20) EXCISION OF TRANSVERSE COLON, ENDO, DIAGN (05/02/17)
[2022-07-20] MEDS: MORPHINE IR 15 MG TABLET PO SCH ×4 (09:23→21:41)
[2022-07-20] MEDS: ENOXAPARIN 40 MG/0.4 ML SYRINGE SUBQ SCH (09:23)
[2022-07-20] MEDS: MULTIVITAMIN W/MINERALS TABLET PO SCH (09:24)
[2022-07-20] MEDS: SENNA 8.6 MG TABLET PO SCH ×2 (09:24→21:41)
[2022-07-20] MEDS: polyethylene glycoL 3350 17 GM PACKET PO SCH (09:24)
[2022-07-20] MEDS: DOCUSATE SODIUM 250 MG CAPSULE PO SCH ×2 (09:24→21:41)
--- NOTE | 2022-07-20 17:08 | PROVIDER PROGRESS NOTE ---
Assessment/Plan - Problem List (1) Metastatic lung cancer (metastasis from lung to other site) Qualifiers: Qualified Code(s): C34.90 - Malignant neoplasm of unspecified part of unspecified bronchus or lung Assessment/Plan: He has a lung neoplasm in the right lower lung. This tumor is eroding into his R rib cage (and you can actually put your finger on the outside of his chest wall to feel it). He has had a profound decrease in functional status, has cachexia, and had near immobility when he came into the hospital. He has improved in that he is now eating, gained a little weight, and is able to get up and move around the room a bit, and worked with PT and OT and met the goals. However, in the last 2 weeks he is slowly starting to fade again. Does not want to get out of bed. Is eating less because the pain is getting worse. He lived alone and therefore he can no longer be safely discharged to there. He was started on scheduled oral morphine. Oxycodone is also available prn. (2) Fatigue Better pain control. He did not want a get out of bed for his meals, says he was too tired. He was on 3 times daily scheduled morphine so we reduced to twice daily. Fatigue really did not get much better and pain got worse. So we increased the morphine to 3 times daily again. 07/09, he told me that the morphine is "a puff". It immediately takes away the pain but it does not last very long. We increased morphine to 4 times a day in this terminally ill gentleman on 07/09 Pain is better controlled since then. He feels more relief and is not as severe and stabbing (3) Severe protein calorie malnutrition He has severe protein calorie malnutrition, but overall we think he will succumb to his neoplasm. We checked routine labs on 07/13, since none had been done for over a week, and they were all stable. No intervention. (4) Cognitive impairment He has cognitive impairment that renders him unable to make his own decisions. He lived alone and therefore can no longer be safely discharged to there. We are awaiting an emergency guardianship to be established to make [facility] location plans, going forward for this gentleman. He would like to be in Hospice. The last Hospitalist did speak to an criminal defense attorney on 06/13/22, who is pursuing this whole process with the hospital. ALBERTO has said that his grand-nephew recently said he would be available to be guardian. That hospitalist spoke to the same criminal defense attorney 06/25 and emergency guardianship with "grandson" by name (not legal) Miquel is being considered for POA. Working on a court appointed guardian. Meanwhile ALBERTO has been looking for an SUGAR for him to go to, and a facility requested that PT and OT instruct him on passive ROM, and document that encounter. This was done. Also, we ordered a Flu shot (for adult >65 y/o) as requested by an RESIDENTIAL. He got the Flu shot on 07/05. There was a conference between his court appointed guardian, and 2 people who are related to his girlfriend on 07/12. Even though there is no legal marriage, they regard him as "" to this lady and feel that he is part of their family. They lost contact with him and have been unable to find them for the last few months because of his moving around getting a new cell phone. In addition to the guardian, those 2 people, it was social work and the last Hospitalist meeting. One of the relatives works for [employer] and is well aware of how the system works. That relative would like to be his power of criminal defense attorney and that is being worked through as well. At this time we have found a snf for him and he is hopefully going there, to [place] this week. His current POA thru the court is approving this. Then down the road, if there is a new POA, the POA and family will be able to find a jail that is willing to take him near them at [place]. (5) Delirium Impression: It happened again last night, improved with an Ativan dose. When it first happened a few days ago, we suspected it was from increased morph ine causing increased sedation, in the face of his already present dementia and cognitive impairment. There was no fever and vitals and exam were stable. Ativan was added and it seems to have worked to decrease his delirium. Will continue prn Ativan but scheduled Morphine - Current Meds Current Meds: Current Medications Generic Name Dose Route Start Last Admin Trade Name Freq PRN Reason Stop Dose Admin Acetaminophen 650 mg 05/29/22 14:15 07/08/22 12:16 Acetaminophen 325 Mg Tablet PO 650 mg Q4HR PRN Administration Pain 1 to 4, or Fever Docusate Sodium 250 - 500 mg 07/04/22 21:00 07/20/22 09:24 Docusate Sodium 250 Mg Capsule PO 250 mg BID MICHAELA Administration Enoxaparin Sodium 40 mg 05/30/22 09:00 07/20/22 09:23 Enoxaparin 40 Mg/0.4 Ml Syringe SUBQ 40 mg DAILY MICHAELA Administration Lorazepam 1 mg 07/13/22 18:33 07/19/22 00:06 Lorazepam 0.5 Mg Tablet SL 1 mg Q4H PRN Administration Anxiety Morphine Sulfate 7.5 mg 07/09/22 13:00 07/20/22 13:05 Morphine Ir 15 Mg Tablet PO 7.5 mg QID MICHAELA Administration Multi-Ingredient Ointment 1 applic 05/30/22 22:39 06/27/22 20:49 Zinc Oxide 20% Oint 30 Gm Tube TOP 1 applic PRN PRN Administration Skin Care Multivitamins/Minerals 1 tab 05/30/22 11:00 07/20/22 09:24 Multivitamin W/Minerals Tablet PO 1 tab DAILYWM MICHAELA Administration Oxycodone HCl 5 mg 06/23/22 09:56 07/18/22 15:37 Oxycodone 10 Mg/0.5 Ml Syringe PO 5 mg Q4HR PRN Administration PAIN Polyethylene Glycol 17 gm 05/30/22 09:00 07/20/22 09:24 Polyethylene Glycol 3350 17 Gm Packet PO Not Given DAILY [facility] Psyllium Hydrophilic Mucilloid 1 packet 06/21/22 08:53 07/11/22 12:37 Psyllium Packet PO 1 packet DAILY PRN Administration Constipation Senna 8.6 - 17.2 mg 07/04/22 17:00 07/20/22 09:24 Senna 8.6 Mg Tablet PO 8.6 mg BID MICHAELA Administration - Lab Result Fish Bone Diagrams: 07/13/22 08:19 07/13/22 08:19 Subjective - Subjective Patient Reports: Resting Comfortably, No Complaints Objective Vital Signs: Vital Signs - 24 hr 07/20/22 08:10 Temperature 36.6 C Heart Rate [ 62 Brachial] Respiratory 20 Rate Blood Pressure 108/49 L [Left Brachial artery] O2 Saturation 95 Oxygen O2 Source Room air I&O (Last 24 Hrs): Intake and Output Totals x24h 11/03/22 11/04/22 11/05/22 23:59 23:59 23:59 Intake Total 552 540 7090 Output Total 850 675 625 Balance -340 75 525 General: Other (Asleep in bed, awakens and converses) Neck: Supple Neuro: Alert, Non Focal, Other ([place] and poor memory) Cardiovascular: Regular rate Respiratory: No respiratory distress Abdomen: Soft Extremities: No edema, No tenderness/swelling - Results Results: Laboratory Results WBC 8.4 x10^3/uL (4.8-10.8) 07/13/22 08:19 RBC 3.87 10^6/uL (4.70-6.10) L 07/13/22 08:19 Hgb 9.7 g/dL (14.0-18.0) L 07/13/22 08:19 Hct 32.7 % (42.0-52.0) L 07/13/22 08:19 MCV 84.5 fL (80.0-94.0) 07/13/22 08:19 MCH 25.1 pg (27.0-31.0) L 07/13/22 08:19 MCHC 29.7 g/dL (32.0-36.0) L 07/13/22 08:19 RDW 15.9 % (12.0-15.0) H 07/13/22 08:19 Plt Count 543 10^3/uL (130-450) H 07/13/22 08:19 MPV 8.6 fL (7.4-11.4) 07/13/22 08:19 Neut # (Auto) 5.7 10^3/uL (1.5-6.6) 07/13/22 08:19 Lymph # (Auto) 1.4 10^3/uL (1.5-3.5) L 07/13/22 08:19 [place] # (Auto) 1.0 10^3/uL (0.0-1.0) 07/13/22 08:19 Eos # (Auto) 0.1 10^3/uL (0.0-0.7) 07/13/22 08:19 Baso # (Auto) 0.1 10^3/uL (0.0-0.1) 07/13/22 08:19 Absolute Nucleated RBC 0.00 x10^3/uL 07/13/22 08:19 Nucleated RBC % 0.0 /100WBC 07/13/22 08:19 PT 13.8 secs (9.9-12.6) H 05/30/22 04:50 INR 1.3 (0.8-1.2) H 05/30/22 04:50 Sodium 133 mmol/L (135-145) L 07/13/22 08:19 Potassium 3.9 mmol/L (3.5-5.0) 07/13/22 08:19 Chloride 94 mmol/L (101-111) L 07/13/22 08:19 Carbon Dioxide 27 mmol/L (21-32) 07/13/22 08:19 Anion Gap 12.0 (6-13) 07/13/22 08:19 BUN 18 mg/dL (6-20) 07/13/22 08:19 Creatinine 0.8 mg/dL (0.6-1.2) 07/13/22 08:19 Estimated GFR (MDRD) 93 (>89) 07/13/22 08:19 Glucose 94 mg/dL (70-100) 07/13/22 08:19 Calcium 9.1 mg/dL (8.5-10.3) 07/13/22 08:19 Phosphorus 1.1 mg/dL (2.5-4.6) L 05/30/22 04:50 Magnesium 2.1 mg/dL (1.7-2.8) 06/07/22 05:01 Total Bilirubin 0.8 mg/dL (0.2-1.0) 05/29/22 06:20 AST 20 IU/L (10-42) 05/29/22 06:20 ALT 17 IU/L (10-60) 05/29/22 06:20 Alkaline Phosphatase 58 IU/L (42-121) 05/29/22 06:20 Total Creatine Kinase 87 IU/L (22-269) 05/28/22 11:50 Total Protein 6.4 g/dL (6.7-8.2) L 05/29/22 06:20 Albumin 2.5 g/dL (3.2-5.5) L 05/29/22 06:20 Globulin 3.9 g/dL (2.1-4.2) 05/29/22 06:20 Albumin/Globulin Ratio 0.6 (1.0-2.2) L 05/29/22 06:20 Lipase 35 U/L (22-51) 05/29/22 06:20 TSH 2.68 uIU/mL (0.34-5.60) 05/30/22 04:50 Urine Color DARK YELLOW 05/28/22 12:07 Urine Clarity CLEAR (CLEAR) 05/28/22 12:07 Urine pH 6.0 PH (5.0-7.5) 05/28/22 12:07 Ur Specific [place] 1.025 (1.002-1.030) 05/28/22 12:07 Urine Protein 30 mg/dL (NEGATIVE) H 05/28/22 12:07 Urine Glucose (UA) NEGATIVE mg/dL (NEGATIVE) 05/28/22 12:07 Urine Ketones 15 mg/dL (NEGATIVE) H 05/28/22 12:07 Urine Occult Blood LARGE (NEGATIVE) H 05/28/22 12:07 Urine Nitrite NEGATIVE (NEGATIVE) 05/28/22 12:07 Urine Bilirubin NEGATIVE (NEGATIVE) 05/28/22 12:07 Urine Urobilinogen 1 (NORMAL) E.U./dL (NORMAL) 05/28/22 12:07 Ur Leukocyte Esterase NEGATIVE (NEGATIVE) 05/28/22 12:07 Urine RBC TNTC /HPF (0-5) H 05/28/22 12:07 Urine WBC 6-10 /HPF (0-3) H 05/28/22 12:07 Ur Epithelial Cells MOD Transitional /HPF (<= Few) H 05/28/22 12:07 Ur Squamous Epith Cells FEW Squamous (<= Few) 05/28/22 12:07 Urine Bacteria Few /HPF (None Seen) 05/28/22 12:07 Urine Casts 6-10 Hyaline Casts /LPF 05/28/22 12:07 Ur Microscopic Review INDICATED 05/28/22 12:07 Urine Culture Comments NOT INDICATED 05/28/22 12:07 Coronavirus (PCR) NEGATIVE 05/29/22 14:20 - Procedures Procedures: Procedures ENDO RECTUM POLYPECTOMY (04/27/15) ENDOSC POLYPECTOMY OF LG INTEST (04/27/15) EXCISION OF ASCENDING COLON, ENDO, DIAGN (05/02/17) EXCISION OF DESCENDING COLON, ENDO, DIAGN (05/02/17) EXCISION OF LEFT LOWER LEG SKIN, EXTERNAL APPROACH, DIAGN (11/16/20) EXCISION OF TRANSVERSE COLON, ENDO, DIAGN (05/02/17)
[2022-07-21] MEDS: MULTIVITAMIN W/MINERALS TABLET PO SCH (08:52)
[2022-07-21] MEDS: polyethylene glycoL 3350 17 GM PACKET PO SCH (08:52)
[2022-07-21] MEDS: MORPHINE IR 15 MG TABLET PO SCH ×4 (08:52→21:21)
[2022-07-21] MEDS: DOCUSATE SODIUM 250 MG CAPSULE PO SCH ×2 (08:52→21:22)
[2022-07-21] MEDS: SENNA 8.6 MG TABLET PO SCH ×2 (08:52→21:21)
[2022-07-21] MEDS: ENOXAPARIN 40 MG/0.4 ML SYRINGE SUBQ SCH (08:52)
--- NOTE | 2022-07-21 19:56 | PROVIDER PROGRESS NOTE ---
Assessment/Plan - Problem List (1) Metastatic lung cancer (metastasis from lung to other site) Qualifiers: Qualified Code(s): C34.90 - Malignant neoplasm of unspecified part of unspecified bronchus or lung Assessment/Plan: He has a lung neoplasm in the right lower lung. This tumor is eroding into his R rib cage (and you can actually put your finger on the outside of his chest wall to feel it). He has had a profound decrease in functional status, has cachexia, and had near immobility when he came into the hospital. He has improved in that he is now eating, gained a little weight, and is able to get up and move around the room a bit, and worked with PT and OT and met the goals. However, in the last 2 weeks he is slowly starting to fade again. Does not want to get out of bed. Is eating less because the pain is getting worse. He lived alone and therefore he can no longer be safely discharged to there. He was started on scheduled oral morphine. Oxycodone is also available prn. (2) Fatigue Better pain control. He did not want a get out of bed for his meals, says he was too tired. He was on 3 times daily scheduled morphine so we reduced to twice daily. Fatigue really did not get much better and pain got worse. So we increased the morphine to 3 times daily again. 07/09, he told me that the morphine is "a puff". It immediately takes away the pain but it does not last very long. We increased morphine to 4 times a day in this terminally ill gentleman on 07/09 Pain is better controlled since then. He feels more relief and is not as severe and stabbing (3) Severe protein calorie malnutrition He has severe protein calorie malnutrition, but overall we think he will succumb to his neoplasm. We checked routine labs on 07/13, since none had been done for over a week, and they were all stable. No intervention. (4) Cognitive impairment He has cognitive impairment that renders him unable to make his own decisions. He lived alone and therefore can no longer be safely discharged to there. We are awaiting an emergency guardianship to be established to make [facility] location plans, going forward for this gentleman. He would like to be in Hospice. The last Hospitalist did speak to an employment attorney on 06/13/22, who is pursuing this whole process with the hospital. ALBERTO has said that his grand-nephew recently said he would be available to be guardian. That hospitalist spoke to the same employment attorney 06/25 and emergency guardianship with "grandson" by name (not legal) Miquel is being considered for POA. Working on a court appointed guardian. Meanwhile ALBERTO has been looking for an SUGAR for him to go to, and a facility requested that PT and OT instruct him on passive ROM, and document that encounter. This was done. Also, we ordered a Flu shot (for adult >65 y/o) as requested by an LONG TERM. He got the Flu shot on 07/05. There was a conference between his court appointed guardian, and 2 people who are related to his girlfriend on 07/12. Even though there is no legal marriage, they regard him as "" to this lady and feel that he is part of their family. They lost contact with him and have been unable to find them for the last few months because of his moving around getting a new cell phone. In addition to the guardian, those 2 people, it was social work and the last Hospitalist meeting. One of the relatives works for [employer] and is well aware of how the system works. That relative would like to be his power of employment attorney and that is being worked through as well. At this time we have found a skilled nursing for him and he is hopefully going there, to [place] this week. His current POA thru the court is approving this. Then down the road, if there is a new POA, the POA and family will be able to find a halfway that is willing to take him near them at [place]. (5) Delirium Impression: It happened again last night, improved with an Ativan dose. When it first happened a few days ago, we suspected it was from increased morph ine causing increased sedation, in the face of his already present dementia and cognitive impairment. There was no fever and vitals and exam were stable. Ativan was added and it seems to have worked to decrease his delirium. Will continue prn Ativan but scheduled Morphine - Current Meds Current Meds: Current Medications Generic Name Dose Route Start Last Admin Trade Name Freq PRN Reason Stop Dose Admin Acetaminophen 650 mg 05/29/22 14:15 07/08/22 12:16 Acetaminophen 325 Mg Tablet PO 650 mg Q4HR PRN Administration Pain 1 to 4, or Fever Docusate Sodium 250 - 500 mg 07/04/22 21:00 07/21/22 08:52 Docusate Sodium 250 Mg Capsule PO 250 mg BID MICHAELA Administration Enoxaparin Sodium 40 mg 05/30/22 09:00 07/21/22 08:52 Enoxaparin 40 Mg/0.4 Ml Syringe SUBQ 40 mg DAILY MICHAELA Administration Lorazepam 1 mg 07/13/22 18:33 07/19/22 00:06 Lorazepam 0.5 Mg Tablet SL 1 mg Q4H PRN Administration Anxiety Morphine Sulfate 7.5 mg 07/09/22 13:00 07/21/22 18:16 Morphine Ir 15 Mg Tablet PO 7.5 mg QID MICHAELA Administration Multi-Ingredient Ointment 1 applic 05/30/22 22:39 06/27/22 20:49 Zinc Oxide 20% Oint 30 Gm Tube TOP 1 applic PRN PRN Administration Skin Care Multivitamins/Minerals 1 tab 05/30/22 11:00 07/21/22 08:52 Multivitamin W/Minerals Tablet PO 1 tab DAILYWM MICHAELA Administration Oxycodone HCl 5 mg 06/23/22 09:56 07/18/22 15:37 Oxycodone 10 Mg/0.5 Ml Syringe PO 5 mg Q4HR PRN Administration PAIN Polyethylene Glycol 17 gm 05/30/22 09:00 07/21/22 08:52 Polyethylene Glycol 3350 17 Gm Packet PO Not Given DAILY [facility] Psyllium Hydrophilic Mucilloid 1 packet 06/21/22 08:53 07/11/22 12:37 Psyllium Packet PO 1 packet DAILY PRN Administration Constipation Senna 8.6 - 17.2 mg 07/04/22 17:00 07/21/22 08:52 Senna 8.6 Mg Tablet PO 8.6 mg BID MICHAELA Administration - Lab Result Fish Bone Diagrams: 07/13/22 08:19 07/13/22 08:19 Subjective - Subjective Patient Reports: Resting Comfortably, No Complaints Objective Vital Signs: Vital Signs - 24 hr 07/20/22 07/21/22 07/21/22 21:00 07:52 15:52 Temperature 36.8 C 36.9 C 36.8 C Heart Rate [ 69 63 62 Brachial] Respiratory 16 20 18 Rate Blood Pressure 104/50 L [Left Brachial artery] Blood Pressure 111/50 L 112/47 L [Right Brachial artery] O2 Saturation 94 95 97 Oxygen O2 Source Room air I&O (Last 24 Hrs): Intake and Output Totals x24h 07/19/22 07/20/22 07/21/22 23:59 23:59 22:59 Intake Total 750 1390 540 Output Total 675 1225 475 Balance 75 165 65 General: Other (Asleep, awakens and converses) HEENT: Mucous membr. moist/pink Neck: Supple Neuro: Alert, Non Focal, Other ([place] and poor memory) Cardiovascular: Regular rate Respiratory: No respiratory distress Abdomen: Soft Extremities: No edema - Results Results: Laboratory Results WBC 8.4 x10^3/uL (4.8-10.8) 07/13/22 08:19 RBC 3.87 10^6/uL (4.70-6.10) L 07/13/22 08:19 Hgb 9.7 g/dL (14.0-18.0) L 07/13/22 08:19 Hct 32.7 % (42.0-52.0) L 07/13/22 08:19 MCV 84.5 fL (80.0-94.0) 07/13/22 08:19 MCH 25.1 pg (27.0-31.0) L 07/13/22 08:19 MCHC 29.7 g/dL (32.0-36.0) L 07/13/22 08:19 RDW 15.9 % (12.0-15.0) H 07/13/22 08:19 Plt Count 543 10^3/uL (130-450) H 07/13/22 08:19 MPV 8.6 fL (7.4-11.4) 07/13/22 08:19 Neut # (Auto) 5.7 10^3/uL (1.5-6.6) 07/13/22 08:19 Lymph # (Auto) 1.4 10^3/uL (1.5-3.5) L 07/13/22 08:19 [place] # (Auto) 1.0 10^3/uL (0.0-1.0) 07/13/22 08:19 Eos # (Auto) 0.1 10^3/uL (0.0-0.7) 07/13/22 08:19 Baso # (Auto) 0.1 10^3/uL (0.0-0.1) 07/13/22 08:19 Absolute Nucleated RBC 0.00 x10^3/uL 07/13/22 08:19 Nucleated RBC % 0.0 /100WBC 07/13/22 08:19 PT 13.8 secs (9.9-12.6) H 05/30/22 04:50 INR 1.3 (0.8-1.2) H 05/30/22 04:50 Sodium 133 mmol/L (135-145) L 07/13/22 08:19 Potassium 3.9 mmol/L (3.5-5.0) 07/13/22 08:19 Chloride 94 mmol/L (101-111) L 07/13/22 08:19 Carbon Dioxide 27 mmol/L (21-32) 07/13/22 08:19 Anion Gap 12.0 (6-13) 07/13/22 08:19 BUN 18 mg/dL (6-20) 07/13/22 08:19 Creatinine 0.8 mg/dL (0.6-1.2) 07/13/22 08:19 Estimated GFR (MDRD) 93 (>89) 07/13/22 08:19 Glucose 94 mg/dL (70-100) 07/13/22 08:19 Calcium 9.1 mg/dL (8.5-10.3) 07/13/22 08:19 Phosphorus 1.1 mg/dL (2.5-4.6) L 05/30/22 04:50 Magnesium 2.1 mg/dL (1.7-2.8) 06/07/22 05:01 Total Bilirubin 0.8 mg/dL (0.2-1.0) 05/29/22 06:20 AST 20 IU/L (10-42) 05/29/22 06:20 ALT 17 IU/L (10-60) 05/29/22 06:20 Alkaline Phosphatase 58 IU/L (42-121) 05/29/22 06:20 Total Creatine Kinase 87 IU/L (22-269) 05/28/22 11:50 Total Protein 6.4 g/dL (6.7-8.2) L 05/29/22 06:20 Albumin 2.5 g/dL (3.2-5.5) L 05/29/22 06:20 Globulin 3.9 g/dL (2.1-4.2) 05/29/22 06:20 Albumin/Globulin Ratio 0.6 (1.0-2.2) L 05/29/22 06:20 Lipase 35 U/L (22-51) 05/29/22 06:20 TSH 2.68 uIU/mL (0.34-5.60) 05/30/22 04:50 Urine Color DARK YELLOW 05/28/22 12:07 Urine Clarity CLEAR (CLEAR) 05/28/22 12:07 Urine pH 6.0 PH (5.0-7.5) 05/28/22 12:07 Ur Specific [place] 1.025 (1.002-1.030) 05/28/22 12:07 Urine Protein 30 mg/dL (NEGATIVE) H 05/28/22 12:07 Urine Glucose (UA) NEGATIVE mg/dL (NEGATIVE) 05/28/22 12:07 Urine Ketones 15 mg/dL (NEGATIVE) H 05/28/22 12:07 Urine Occult Blood LARGE (NEGATIVE) H 05/28/22 12:07 Urine Nitrite NEGATIVE (NEGATIVE) 05/28/22 12:07 Urine Bilirubin NEGATIVE (NEGATIVE) 05/28/22 12:07 Urine Urobilinogen 1 (NORMAL) E.U./dL (NORMAL) 05/28/22 12:07 Ur Leukocyte Esterase NEGATIVE (NEGATIVE) 05/28/22 12:07 Urine RBC TNTC /HPF (0-5) H 05/28/22 12:07 Urine WBC 6-10 /HPF (0-3) H 05/28/22 12:07 Ur Epithelial Cells MOD Transitional /HPF (<= Few) H 05/28/22 12:07 Ur Squamous Epith Cells FEW Squamous (<= Few) 05/28/22 12:07 Urine Bacteria Few /HPF (None Seen) 05/28/22 12:07 Urine Casts 6-10 Hyaline Casts /LPF 05/28/22 12:07 Ur Microscopic Review INDICATED 05/28/22 12:07 Urine Culture Comments NOT INDICATED 05/28/22 12:07 Coronavirus (PCR) NEGATIVE 05/29/22 14:20 - Procedures Procedures: Procedures ENDO RECTUM POLYPECTOMY (04/27/15) ENDOSC POLYPECTOMY OF LG INTEST (04/27/15) EXCISION OF ASCENDING COLON, ENDO, DIAGN (05/02/17) EXCISION OF DESCENDING COLON, ENDO, DIAGN (05/02/17) EXCISION OF LEFT LOWER LEG SKIN, EXTERNAL APPROACH, DIAGN (11/16/20) EXCISION OF TRANSVERSE COLON, ENDO, DIAGN (05/02/17)
[2022-07-22] MEDS: MULTIVITAMIN W/MINERALS TABLET PO SCH (08:41)
[2022-07-22] MEDS: MORPHINE IR 15 MG TABLET PO SCH ×4 (08:41→20:06)
[2022-07-22] MEDS: polyethylene glycoL 3350 17 GM PACKET PO SCH (08:41)
[2022-07-22] MEDS: ENOXAPARIN 40 MG/0.4 ML SYRINGE SUBQ SCH (08:41)
[2022-07-22] MEDS: SENNA 8.6 MG TABLET PO SCH ×2 (08:42→18:41)
[2022-07-22] MEDS: DOCUSATE SODIUM 250 MG CAPSULE PO SCH ×2 (08:42→18:41)
--- NOTE | 2022-07-22 18:21 | PROVIDER PROGRESS NOTE ---
Assessment/Plan - Problem List (1) Metastatic lung cancer (metastasis from lung to other site) Qualifiers: Qualified Code(s): C34.90 - Malignant neoplasm of unspecified part of unspecified bronchus or lung Assessment/Plan: He has a lung neoplasm in the right lower lung. This tumor is eroding into his R rib cage (and you can actually put your finger on the outside of his chest wall to feel it). He has had a profound decrease in functional status, has cachexia, and had near immobility when he came into the hospital. He has improved in that he is now eating, gained a little weight, and is able to get up and move around the room a bit, and worked with PT and OT and met the goals. However, in the last 2 weeks he is slowly starting to fade again. Does not want to get out of bed. Is eating less because the pain is getting worse. He lived alone and therefore he can no longer be safely discharged to there. He was started on scheduled oral morphine. Oxycodone is also available prn. (2) Fatigue Better pain control. He did not want a get out of bed for his meals, says he was too tired. He was on 3 times daily scheduled morphine so we reduced to twice daily. Fatigue really did not get much better and pain got worse. So we increased the morphine to 3 times daily again. 07/09, he told me that the morphine is "a puff". It immediately takes away the pain but it does not last very long. We increased morphine to 4 times a day in this terminally ill gentleman on 07/09 Pain is better controlled since then. He feels more relief and is not as severe and stabbing (3) Severe protein calorie malnutrition He has severe protein calorie malnutrition, but overall we think he will succumb to his neoplasm. We checked routine labs on 07/13, since none had been done for over a week, and they were all stable. No intervention. (4) Cognitive impairment He has cognitive impairment that renders him unable to make his own decisions. He lived alone and therefore can no longer be safely discharged to there. We are awaiting an emergency guardianship to be established to make [facility] location plans, going forward for this gentleman. He would like to be in Hospice. The last Hospitalist did speak to an deputy attorney general on 06/13/22, who is pursuing this whole process with the hospital. ALBERTO has said that his grand-nephew recently said he would be available to be guardian. That hospitalist spoke to the same deputy attorney general 06/25 and emergency guardianship with "grandson" by name (not legal) Miquel is being considered for POA. Working on a court appointed guardian. Meanwhile ALBERTO has been looking for an [facility] for him to go to, and a facility requested that PT and OT instruct him on passive ROM, and document that encounter. This was done. Also, we ordered a Flu shot (for adult >65 y/o) as requested by an [facility]. He got the Flu shot on 07/05. There was a conference between his court appointed guardian, and 2 people who are related to his girlfriend on 07/12. Even though there is no legal marriage, they regard him as "" to this lady and feel that he is part of their family. They lost contact with him and have been unable to find them for the last few months because of his moving around getting a new cell phone. In addition to the guardian, those 2 people, it was social work and the last Hospitalist meeting. One of the relatives works for [employer] and is well aware of how the system works. That relative would like to be his power of deputy attorney general and that is being worked through as well. At this time we have found a longterm for him and he is hopefully going there, to [place] this week. His current POA thru the court is approving this. Then down the road, if there is a new POA, the POA and family will be able to find a [place] that is willing to take him near them at [place]. (5) Delirium Impression: It happened again last night, improved with an Ativan dose. When it first happened a few days ago, we suspected it was from increased morph ine causing increased sedation, in the face of his already present dementia and cognitive impairment. There was no fever and vitals and exam were stable. Ativan was added and it seems to have worked to decrease his delirium. Will continue prn Ativan but scheduled Morphine - Current Meds Current Meds: Current Medications Generic Name Dose Route Start Last Admin Trade Name Freq PRN Reason Stop Dose Admin Acetaminophen 650 mg 05/29/22 14:15 07/08/22 12:16 Acetaminophen 325 Mg Tablet PO 650 mg Q4HR PRN Administration Pain 1 to 4, or Fever Docusate Sodium 250 - 500 mg 07/04/22 21:00 07/22/22 08:42 Docusate Sodium 250 Mg Capsule PO Not Given BID MICHAELA Enoxaparin Sodium 40 mg 05/30/22 09:00 07/22/22 08:41 Enoxaparin 40 Mg/0.4 Ml Syringe SUBQ 40 mg DAILY MICHAELA Administration Lorazepam 1 mg 07/13/22 18:33 07/19/22 00:06 Lorazepam 0.5 Mg Tablet SL 1 mg Q4H PRN Administration Anxiety Morphine Sulfate 7.5 mg 07/09/22 13:00 07/22/22 17:02 Morphine Ir 15 Mg Tablet PO 7.5 mg QID MICHAELA Administration Multi-Ingredient Ointment 1 applic 05/30/22 22:39 06/27/22 20:49 Zinc Oxide 20% Oint 30 Gm Tube TOP 1 applic PRN PRN Administration Skin Care Multivitamins/Minerals 1 tab 05/30/22 11:00 07/22/22 08:41 Multivitamin W/Minerals Tablet PO 1 tab DAILYWM MICHAELA Administration Oxycodone HCl 5 mg 06/23/22 09:56 07/18/22 15:37 Oxycodone 10 Mg/0.5 Ml Syringe PO 5 mg Q4HR PRN Administration PAIN Polyethylene Glycol 17 gm 05/30/22 09:00 07/22/22 08:41 Polyethylene Glycol 3350 17 Gm Packet PO 17 gm DAILY MICHAELA Administration Psyllium Hydrophilic Mucilloid 1 packet 06/21/22 08:53 07/11/22 12:37 Psyllium Packet PO 1 packet DAILY PRN Administration Constipation Senna 8.6 - 17.2 mg 07/04/22 17:00 07/22/22 08:42 Senna 8.6 Mg Tablet PO Not Given BID MICHAELA - Lab Result Fish Bone Diagrams: 07/13/22 08:19 07/13/22 08:19 Subjective - Subjective Patient Reports: No Complaints Objective Vital Signs: Vital Signs - 24 hr 07/22/22 07/22/22 12:42 17:11 Temperature 36.6 C 36.6 C Heart Rate [ 61 63 Brachial] Respiratory 16 15 Rate Blood Pressure 112/46 L 124/48 L [Right Brachial artery] O2 Saturation 96 94 Oxygen O2 Source Room air I&O (Last 24 Hrs): Intake and Output Totals x24h 07/21/22 07/21/22 07/22/22 00:59 23:59 23:59 Intake Total 520 Output Total 425 Balance 95 General: Alert, No acute distress, Other (Sitting up in a chair, eating his br eakfast, is in no distress) HEENT: Atraumatic, Mucous membr. moist/pink Neck: Supple, No JVD Neuro: Alert, Disoriented, Other (SELDOVIA and poor memory) Cardiovascular: Regular rate Respiratory: No respiratory distress Abdomen: Soft Extremities: No clubbing, No edema, No tenderness/swelling - Results Results: Laboratory Results WBC 8.4 x10^3/uL (4.8-10.8) 07/13/22 08:19 RBC 3.87 10^6/uL (4.70-6.10) L 07/13/22 08:19 Hgb 9.7 g/dL (14.0-18.0) L 07/13/22 08:19 Hct 32.7 % (42.0-52.0) L 07/13/22 08:19 MCV 84.5 fL (80.0-94.0) 07/13/22 08:19 MCH 25.1 pg (27.0-31.0) L 07/13/22 08:19 MCHC 29.7 g/dL (32.0-36.0) L 07/13/22 08:19 RDW 15.9 % (12.0-15.0) H 07/13/22 08:19 Plt Count 543 10^3/uL (130-450) H 07/13/22 08:19 MPV 8.6 fL (7.4-11.4) 07/13/22 08:19 Neut # (Auto) 5.7 10^3/uL (1.5-6.6) 07/13/22 08:19 Lymph # (Auto) 1.4 10^3/uL (1.5-3.5) L 07/13/22 08:19 [place] # (Auto) 1.0 10^3/uL (0.0-1.0) 07/13/22 08:19 Eos # (Auto) 0.1 10^3/uL (0.0-0.7) 07/13/22 08:19 Baso # (Auto) 0.1 10^3/uL (0.0-0.1) 07/13/22 08:19 Absolute Nucleated RBC 0.00 x10^3/uL 07/13/22 08:19 Nucleated RBC % 0.0 /100WBC 07/13/22 08:19 PT 13.8 secs (9.9-12.6) H 05/30/22 04:50 INR 1.3 (0.8-1.2) H 05/30/22 04:50 Sodium 133 mmol/L (135-145) L 07/13/22 08:19 Potassium 3.9 mmol/L (3.5-5.0) 07/13/22 08:19 Chloride 94 mmol/L (101-111) L 07/13/22 08:19 Carbon Dioxide 27 mmol/L (21-32) 07/13/22 08:19 Anion Gap 12.0 (6-13) 07/13/22 08:19 BUN 18 mg/dL (6-20) 07/13/22 08:19 Creatinine 0.8 mg/dL (0.6-1.2) 07/13/22 08:19 Estimated GFR (MDRD) 93 (>89) 07/13/22 08:19 Glucose 94 mg/dL (70-100) 07/13/22 08:19 Calcium 9.1 mg/dL (8.5-10.3) 07/13/22 08:19 Phosphorus 1.1 mg/dL (2.5-4.6) L 05/30/22 04:50 Magnesium 2.1 mg/dL (1.7-2.8) 06/07/22 05:01 Total Bilirubin 0.8 mg/dL (0.2-1.0) 05/29/22 06:20 AST 20 IU/L (10-42) 05/29/22 06:20 ALT 17 IU/L (10-60) 05/29/22 06:20 Alkaline Phosphatase 58 IU/L (42-121) 05/29/22 06:20 Total Creatine Kinase 87 IU/L (22-269) 05/28/22 11:50 Total Protein 6.4 g/dL (6.7-8.2) L 05/29/22 06:20 Albumin 2.5 g/dL (3.2-5.5) L 05/29/22 06:20 Globulin 3.9 g/dL (2.1-4.2) 05/29/22 06:20 Albumin/Globulin Ratio 0.6 (1.0-2.2) L 05/29/22 06:20 Lipase 35 U/L (22-51) 05/29/22 06:20 TSH 2.68 uIU/mL (0.34-5.60) 05/30/22 04:50 Urine Color DARK YELLOW 05/28/22 12:07 Urine Clarity CLEAR (CLEAR) 05/28/22 12:07 Urine pH 6.0 PH (5.0-7.5) 05/28/22 12:07 Ur Specific [place] 1.025 (1.002-1.030) 05/28/22 12:07 Urine Protein 30 mg/dL (NEGATIVE) H 05/28/22 12:07 Urine Glucose (UA) NEGATIVE mg/dL (NEGATIVE) 05/28/22 12:07 Urine Ketones 15 mg/dL (NEGATIVE) H 05/28/22 12:07 Urine Occult Blood LARGE (NEGATIVE) H 05/28/22 12:07 Urine Nitrite NEGATIVE (NEGATIVE) 05/28/22 12:07 Urine Bilirubin NEGATIVE (NEGATIVE) 05/28/22 12:07 Urine Urobilinogen 1 (NORMAL) E.U./dL (NORMAL) 05/28/22 12:07 Ur Leukocyte Esterase NEGATIVE (NEGATIVE) 05/28/22 12:07 Urine RBC TNTC /HPF (0-5) H 05/28/22 12:07 Urine WBC 6-10 /HPF (0-3) H 05/28/22 12:07 Ur Epithelial Cells MOD Transitional /HPF (<= Few) H 05/28/22 12:07 Ur Squamous Epith Cells FEW Squamous (<= Few) 05/28/22 12:07 Urine Bacteria Few /HPF (None Seen) 05/28/22 12:07 Urine Casts 6-10 Hyaline Casts /LPF 05/28/22 12:07 Ur Microscopic Review INDICATED 05/28/22 12:07 Urine Culture Comments NOT INDICATED 05/28/22 12:07 Coronavirus (PCR) NEGATIVE 05/29/22 14:20 - Procedures Procedures: Procedures ENDO RECTUM POLYPECTOMY (04/27/15) ENDOSC POLYPECTOMY OF LG INTEST (04/27/15) EXCISION OF ASCENDING COLON, ENDO, DIAGN (05/02/17) EXCISION OF DESCENDING COLON, ENDO, DIAGN (05/02/17) EXCISION OF LEFT LOWER LEG SKIN, EXTERNAL APPROACH, DIAGN (11/16/20) EXCISION OF TRANSVERSE COLON, ENDO, DIAGN (05/02/17)
[2022-07-23] MEDS: DOCUSATE SODIUM 250 MG CAPSULE PO SCH ×2 (07:26→21:17)
[2022-07-23] MEDS: SENNA 8.6 MG TABLET PO SCH ×2 (07:26→21:17)
[2022-07-23] MEDS: MORPHINE IR 15 MG TABLET PO SCH ×4 (08:08→21:17)
[2022-07-23] MEDS: polyethylene glycoL 3350 17 GM PACKET PO SCH (08:08)
[2022-07-23] MEDS: ENOXAPARIN 40 MG/0.4 ML SYRINGE SUBQ SCH (08:08)
[2022-07-23] MEDS: MULTIVITAMIN W/MINERALS TABLET PO SCH (08:08)
--- NOTE | 2022-07-23 16:20 | PROVIDER PROGRESS NOTE ---
Subjective - Prog Note Date Prog Note Date: 07/23/22 Prog Note Time: 16:20 - Subjective Subjective: Nursing reports that he is just sleeping most of the day. When he does wake up, he is appropriate. He understands where he is, why he is here. Excepting of the fact that he is getting a guardian. "I need a guardian". He is relieved that somebody also can to be making decisions on on him. Current Medications - Current Medications Current Medications: Active Medications Acetaminophen (Acetaminophen 325 Mg Tablet) 650 mg PO Q4HR PRN PRN Reason: Pain 1 to 4, or Fever Last Admin: 07/08/22 12:16 Dose: 650 mg Docusate Sodium (Docusate Sodium 250 Mg Capsule) 250 - 500 mg PO BID [facility] Last Admin: 07/23/22 07:26 Dose: Not Given Enoxaparin Sodium (Enoxaparin 40 Mg/0.4 Ml Syringe) 40 mg SUBQ DAILY [facility] Last Admin: 07/23/22 08:08 Dose: 40 mg Lorazepam (Lorazepam 0.5 Mg Tablet) 1 mg SL Q4H PRN PRN Reason: Anxiety Last Admin: 07/19/22 00:06 Dose: 1 mg Morphine Sulfate (Morphine Ir 15 Mg Tablet) 7.5 mg PO QID [facility] Last Admin: 07/23/22 13:12 Dose: 7.5 mg Multi-Ingredient Ointment (Zinc Oxide 20% Oint 30 Gm Tube) 1 applic TOP PRN PRN PRN Reason: Skin Care Last Admin: 06/27/22 20:49 Dose: 1 applic Multivitamins/Minerals (Multivitamin W/Minerals Tablet) 1 tab PO DAILYWM [facility] Last Admin: 07/23/22 08:08 Dose: 1 tab Ondansetron HCl (Ondansetron Odt 4 Mg Tablet) 4 mg TL Q6HR PRN PRN Reason: Nausea / Vomiting Oxycodone HCl (Oxycodone 10 Mg/0.5 Ml Syringe) 5 mg PO Q4HR PRN PRN Reason: PAIN Last Admin: 07/18/22 15:37 Dose: 5 mg Polyethylene Glycol (Polyethylene Glycol 3350 17 Gm Packet) 17 gm PO DAILY [facility] Last Admin: 07/23/22 08:08 Dose: 17 gm Psyllium Hydrophilic Mucilloid (Psyllium Packet) 1 packet PO DAILY PRN PRN Reason: Constipation Last Admin: 07/11/22 12:37 Dose: 1 packet Senna (Senna 8.6 Mg Tablet) 8.6 - 17.2 mg PO BID MICHAELA Last Admin: 07/23/22 07:26 Dose: Not Given No Known Home Medications 05/30/22 Objective - Vital Signs/Intake & Output Reviewed Vital Signs: Yes Intake & Output: Intake & Output 07/21/22 07/21/22 07/22/22 07/23/22 00:59 23:59 23:59 23:59 Intake Total 620 560 Output Total 425 400 Balance 195 160 - Objective General Appearance: positive: No acute distress, Alert (when I wake him up, goes back to sleep within minutes of my conversation with him), Other (gaunt cachectic elderly man. He maxed out at 48 kg July 10. Then he went down to 46 kg July 18. He has been at 45.5 since July 21.) Eyes Bilateral: positive: PERRL, EOMI Neck: negative: Stiff neck Respiratory: positive: No respiratory distress. negative: Wheezes, Rales, Rhonchi Cardiovascular: positive: Regular rate & rhythm Abdomen: positive: Non-tender, No organomegaly, Nml bowel sounds, No distention Skin: positive: Warm, Dry Extremities: positive: Full ROM, No pedal edema Neurologic/Psychiatric: positive: CN's nml (2-12), Disoriented to time. negative: Motor nml (generalized weakness and no focal deficit) - Lab Results Fish Bones: 07/13/22 08:19 07/13/22 08:19 Assessment/Plan - Problem List (1) Delirium Impression: He has a lung neoplasm in the right lower lung. This tumor is eroding into his R rib cage (and you can actually put your finger on the outside of his chest wall to feel it). He has had a profound decrease in functional status, has cachexia, and had near immobility when he came into the hospital. He has improved in that he is now eating, gained a little weight, and is able to get up and move around the room a bit, and worked with PT and OT and met the goals. However, in the last 2 weeks he is slowly starting to fade again. Does not want to get out of bed. Is eating less because the pain is getting worse. He lived alone and therefore he can no longer be safely discharged to there. He was started on scheduled oral morphine. Oxycodone is also available prn. (2) Fatigue Better pain control. He did not want a get out of bed for his meals, says he was too tired. He was on 3 times daily scheduled morphine so we reduced to twice daily. Fatigue really did not get much better and pain got worse. So we increased the morphine to 3 times daily again. 07/09, he told me that the morphine is "a puff". It immediately takes away the pain but it does not last very long. We increased morphine to 4 times a day in this terminally ill gentleman on 07/09 Pain is better controlled since then. He feels more relief and is not as severe and stabbing (3) Severe protein calorie malnutrition He has severe protein calorie malnutrition, but overall we think he will succumb to his neoplasm. We checked routine labs on 07/13, since none had been done for over a week, and they were all stable. No intervention. (4) Cognitive impairment He has cognitive impairment that renders him unable to make his own decisions. He lived alone and therefore can no longer be safely discharged to there. We are awaiting an emergency guardianship to be established to make [facility] location plans, going forward for this gentleman. He would like to be in Hospice. The last Hospitalist did speak to an document review attorney on 06/13/22, who is pursuing this whole process with the hospital. ALBERTO has said that his grand-nephew recently said he would be available to be guardian. That hospitalist spoke to the same document review attorney 06/25 and emergency guardianship with "grandson" by name (not legal) Miquel is being considered for POA. Working on a court appointed guardian. Meanwhile ALBERTO has been looking for an [facility] for him to go to, and a facility requested that PT and OT instruct him on passive ROM, and document that encounter. This was done. Also, we ordered a Flu shot (for adult >65 y/o) as requested by an SUGAR. He got the Flu shot on 07/05. There was a conference between his court appointed guardian, and 2 people who are related to his girlfriend on 07/12. Even though there is no legal marriage, they regard him as "" to this lady and feel that he is part of their family. They lost contact with him and have been unable to find them for the last few months because of his moving around getting a new cell phone. In addition to the guardian, those 2 people, it was social work and the last Hospitalist meeting. One of the relatives works for [employer] and is well aware of how the system works. That relative would like to be his power of document review attorney and that is being worked through as well. 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 This tumor is eroding into his R rib cage (and you can actually put your finger on the outside of his chest wall to feel it). He has had a profound decrease in functional status, has c achexia, and had near immobility when he came into the hospital. He has improved in that he is now eating, gained a little weight, and is able to get up and move around the room a bit, and worked with PT and OT and met the goals. However, in the last 2 weeks he is slowly starting to fade again. Does not want to get out of bed. Is eating less because the pain is getting worse. He lived alone and therefore he can no longer be safely discharged to there. He was started on scheduled oral morphine. Oxycodone is also available prn. (2) Fatigue Better pain control. He did not want a get out of bed for his meals, says he was too tired. He was on 3 times daily scheduled morphine so we reduced to twice daily. Fatigue really did not get much better and pain got worse. So we increased the morphine to 3 times daily again. 07/09, he told me that the morphine is "a puff". It immediately takes away the pain but it does not last very long. We increased morphine to 4 times a day in this terminally ill gentleman on 07/09 Pain is better controlled since then. He feels more relief and is not as severe and stabbing (3) Severe protein calorie malnutrition He has severe protein calorie malnutrition, but overall we think he will succumb to his neoplasm. We checked routine labs on 07/13, since none had been done for over a week, and they were all stable. No intervention. (4) Cognitive impairment He has cognitive impairment that renders him unable to make his own decisions. He lived alone and therefore can no longer be safely discharged to there. We are awaiting an emergency guardianship to be established to make [facility] location plans, going forward for this gentleman. He would like to be in Hospice. The noemi Hospitalist did speak to an document review attorney on 06/13/22, who is pursuing this whole process with the hospital. ALBERTO has said that his grand-nephew recently said he would be available to be guardian. That hospitalist spoke to the same document review attorney 06/25 and emergency guardianship with "grandson" by name (not legal) Miquel is being considered for POA. Working on a court appointed guardian. Meanwhile ALBERTO has been looking for an SNF for him to go to, and a facility requested that PT and OT instruct him on passive ROM, and document that encounter. This was done. Also, we ordered a Flu shot (for adult >65 y/o) as requested by an SUGAR. He got the Flu shot on 07/05. There was a conference between his court appointed guardian, and 2 people who are related to his girlfriend on 07/12. Even though there is no legal marriage, they regard him as "" to this lady and feel that he is part of their family. They lost contact with him and have been unable to find them for the last few months because of his moving around getting a new cell phone. In addition to the guardian, those 2 people, it was social work and the last Hospitalist meeting. One of the relatives works for [employer] and is well aware of how the system works. That relative would like to be his power of document review attorney and that is being worked through as well. As of the July 12 conversation, social work had found him a mcc in [place]. However he still needed a few pieces of financial information submitted to Medicaid with regards to income to definitively qualify him. Those pieces of information have not been able to be submitted. As such she cannot go to a mcc until that is settled. His family is hoping to settle him near [facility] so they could see him more often. (5) Delirium Impression: It happened again last night, improved with an Ativan dose. When it first happened a few days ago, we suspected it was from increased morphine causing increased sedation, in the face of his already present dementia and cognitive impairment. There was no fever and vitals and exam were stable. Ativan was added and it seems to have worked to decrease his delirium. Will continue prn Ativan but scheduled Morphine
[2022-07-23] MEDS: oxyCODONE 10 MG/0.5 ML SYRINGE PO PRN (19:48)
[2022-07-23] MEDS: ZINC OXIDE 20% OINT 30 GM TUBE TOP PRN (19:49)
[2022-07-24] MEDS: SENNA 8.6 MG TABLET PO SCH ×2 (09:52→21:23)
[2022-07-24] MEDS: MULTIVITAMIN W/MINERALS TABLET PO SCH (09:52)
[2022-07-24] MEDS: MORPHINE IR 15 MG TABLET PO SCH ×4 (09:52→21:23)
[2022-07-24] MEDS: DOCUSATE SODIUM 250 MG CAPSULE PO SCH ×2 (09:52→21:23)
[2022-07-24] MEDS: polyethylene glycoL 3350 17 GM PACKET PO SCH (09:52)
[2022-07-24] MEDS: ENOXAPARIN 40 MG/0.4 ML SYRINGE SUBQ SCH (09:53)
--- NOTE | 2022-07-24 11:30 | PROVIDER PROGRESS NOTE ---
Subjective - Prog Note Date Prog Note Date: 07/24/22 Prog Note Time: 11:27 - Subjective Subjective: No new complaints from the patient. No new events per nursing. Current Medications - Current Medications Current Medications: Active Medications Acetaminophen (Acetaminophen 325 Mg Tablet) 650 mg PO Q4HR PRN PRN Reason: Pain 1 to 4, or Fever Last Admin: 07/08/22 12:16 Dose: 650 mg Docusate Sodium (Docusate Sodium 250 Mg Capsule) 250 - 500 mg PO BID [facility] Last Admin: 07/24/22 09:52 Dose: 250 mg Enoxaparin Sodium (Enoxaparin 40 Mg/0.4 Ml Syringe) 40 mg SUBQ DAILY [facility] Last Admin: 07/24/22 09:53 Dose: 40 mg Lorazepam (Lorazepam 0.5 Mg Tablet) 1 mg SL Q4H PRN PRN Reason: Anxiety Last Admin: 07/19/22 00:06 Dose: 1 mg Morphine Sulfate (Morphine Ir 15 Mg Tablet) 7.5 mg PO QID [facility] Last Admin: 07/24/22 09:52 Dose: 7.5 mg Multi-Ingredient Ointment (Zinc Oxide 20% Oint 30 Gm Tube) 1 applic TOP PRN PRN PRN Reason: Skin Care Last Admin: 07/23/22 19:49 Dose: 1 applic Multivitamins/Minerals (Multivitamin W/Minerals Tablet) 1 tab PO DAILYWM [facility] Last Admin: 07/24/22 09:52 Dose: 1 tab Ondansetron HCl (Ondansetron Odt 4 Mg Tablet) 4 mg TL Q6HR PRN PRN Reason: Nausea / Vomiting Oxycodone HCl (Oxycodone 10 Mg/0.5 Ml Syringe) 5 mg PO Q4HR PRN PRN Reason: PAIN Last Admin: 07/23/22 19:48 Dose: 5 mg Polyethylene Glycol (Polyethylene Glycol 3350 17 Gm Packet) 17 gm PO DAILY [facility] Last Admin: 07/24/22 09:52 Dose: 17 gm Psyllium Hydrophilic Mucilloid (Psyllium Packet) 1 packet PO DAILY PRN PRN Reason: Constipation Last Admin: 07/11/22 12:37 Dose: 1 packet Senna (Senna 8.6 Mg Tablet) 8.6 - 17.2 mg PO BID [facility] Last Admin: 07/24/22 09:52 Dose: 8.6 mg No Known Home Medications 05/30/22 Objective - Vital Signs/Intake & Output Reviewed Vital Signs: Yes Vital Signs: Vital Signs x48h Temp Pulse Resp BP Pulse Ox 07/24/22 09:00 36.4 C L 59 L 18 124/47 L 96 Intake & Output: Intake & Output 07/21/22 07/22/22 07/23/22 07/24/22 23:59 23:59 23:59 23:59 Intake Total 620 770 240 Output Total 425 500 350 Balance 195 270 -110 - Objective General Appearance: positive: Other (Asleep. Awakens to voice. gaunt, cachect ic, fatigued appearing) Eyes Bilateral: positive: PERRL, EOMI Neck: positive: No JVD Respiratory: positive: No respiratory distress. 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 This tumor is eroding into his R rib cage (and you can actually put your finger on the outside of his chest wall to feel it). He has had a profound decrease in functional status, has cachexia, and had near immobility when he came into the hospital. He has improved in that he is now eating, gained a little weight, and is able to get up and move around the room a bit, and worked with PT and OT and met the goals. How ever, in the last 2 weeks he is slowly starting to fade again. Does not want to get out of bed. Is eating less because the pain is getting worse. He lived alone and therefore he can no longer be safely discharged to there. He was started on scheduled oral morphine. Oxycodone is also available prn. (2) Fatigue Better pain control. He did not want a get out of bed for his meals, says he was too tired. He was on 3 times daily scheduled morphine so we reduced to twic e daily. Fatigue really did not get much better and pain got worse. So we increased the morphine to 3 times daily again. 07/09, he told me that the morphine is "a puff". It immediately takes away the pain but it does not last very long. We increased morphine to 4 times a day in this terminally ill gentleman on 07/09 Pain is better controlled since then. He feels more relief and is not as severe and stabbing (3) Severe protein calorie malnutrition He has severe protein calorie malnutrition, but overall we think he will succumb to his neoplasm. We checked routine labs on 07/13, since none had been done for over a week, and they were all stable. No intervention. weight peaked at 48 kg and he is slowly losing weight again. (4) Cognitive impairment He has cognitive impairment that renders him unable to make his own decisions. He lived alone and therefore can no longer be safely discharged to there. We are awaiting an emergency guardianship to be established to make [facility] location plans, going forward for this gentleman. He would like to be in Hospice. The last Hospitalist did speak to an assistant attorney general on 06/13/22, who is pursuing this whole process with the hospital. ALBERTO has said that his grand-nephew recently said he would be available to be guardian. That hospitalist spoke to the same assistant attorney general 06/25 and emergency guardianship with "grandson" by name (not legal) Miquel is being considered for POA. Working on a court appointed guardian. Meanwhile ALBERTO has been looking for an [facility] for him to go to, and a facility requested that PT and OT instruct him on passive ROM, and document that encounter. This was done. Also, we ordered a Flu shot (for adult >65 y/o) as requested by an [facility]. He got the Flu shot on 07/05. There was a conference between his court appointed guardian, and 2 people who are related to his girlfriend on 07/12. Even though there is no legal marriage, they regard him as "" to this lady and feel that he is part of their family. They lost contact with him and have been unable to find them for the last few months because of his moving around getting a new cell phone. In addition to the guardian, those 2 people, it was social work and the last Hospitalist meeting. One of the relatives works for [employer] and is well aware of how the system works. That relative would like to be his power of assistant attorney general and that is being worked through as well.
[2022-07-25] MEDS: MORPHINE IR 15 MG TABLET PO SCH ×4 (08:25→21:15)
[2022-07-25] MEDS: DOCUSATE SODIUM 250 MG CAPSULE PO SCH ×2 (08:25→21:15)
[2022-07-25] MEDS: SENNA 8.6 MG TABLET PO SCH ×2 (08:25→21:15)
[2022-07-25] MEDS: MULTIVITAMIN W/MINERALS TABLET PO SCH (08:25)
[2022-07-25] MEDS: ENOXAPARIN 40 MG/0.4 ML SYRINGE SUBQ SCH (08:25)
[2022-07-25] MEDS: polyethylene glycoL 3350 17 GM PACKET PO SCH (08:26)
--- NOTE | 2022-07-25 12:22 | PROVIDER PROGRESS NOTE ---
Subjective - Prog Note Date Prog Note Date: 07/25/22 Prog Note Time: 12:20 - Subjective Subjective: no new complaints Current Medications - Current Medications Current Medications: Active Medications Acetaminophen (Acetaminophen 325 Mg Tablet) 650 mg PO Q4HR PRN PRN Reason: Pain 1 to 4, or Fever Last Admin: 07/08/22 12:16 Dose: 650 mg Docusate Sodium (Docusate Sodium 250 Mg Capsule) 250 - 500 mg PO BID [facility] Last Admin: 07/25/22 08:25 Dose: 250 mg Enoxaparin Sodium (Enoxaparin 40 Mg/0.4 Ml Syringe) 40 mg SUBQ DAILY [facility] Last Admin: 07/25/22 08:25 Dose: 40 mg Lorazepam (Lorazepam 0.5 Mg Tablet) 1 mg SL Q4H PRN PRN Reason: Anxiety Last Admin: 07/19/22 00:06 Dose: 1 mg Morphine Sulfate (Morphine Ir 15 Mg Tablet) 7.5 mg PO QID [facility] Last Admin: 07/25/22 08:25 Dose: 7.5 mg Multi-Ingredient Ointment (Zinc Oxide 20% Oint 30 Gm Tube) 1 applic TOP PRN PRN PRN Reason: Skin Care Last Admin: 07/23/22 19:49 Dose: 1 applic Multivitamins/Minerals (Multivitamin W/Minerals Tablet) 1 tab PO DAILYWM [facility] Last Admin: 07/25/22 08:25 Dose: 1 tab Ondansetron HCl (Ondansetron Odt 4 Mg Tablet) 4 mg TL Q6HR PRN PRN Reason: Nausea / Vomiting Oxycodone HCl (Oxycodone 10 Mg/0.5 Ml Syringe) 5 mg PO Q4HR PRN PRN Reason: PAIN Last Admin: 07/23/22 19:48 Dose: 5 mg Polyethylene Glycol (Polyethylene Glycol 3350 17 Gm Packet) 17 gm PO DAILY [facility] Last Admin: 07/25/22 08:26 Dose: 17 gm Psyllium Hydrophilic Mucilloid (Psyllium Packet) 1 packet PO DAILY PRN PRN Reason: Constipation Last Admin: 07/11/22 12:37 Dose: 1 packet Senna (Senna 8.6 Mg Tablet) 8.6 - 17.2 mg PO BID [facility] Last Admin: 07/25/22 08:25 Dose: 8.6 mg No Known Home Medications 05/30/22 Objective - Vital Signs/Intake & Output Reviewed Vital Signs: Yes Vital Signs: Vital Signs x48h Temp Pulse Resp BP Pulse Ox 07/25/22 07:47 36.6 C 59 L 24 114/49 L 94 Intake & Output: Intake & Output 07/22/22 07/23/22 07/24/22 07/25/22 23:59 23:59 23:59 23:59 Intake Total 620 770 700 340 Output Total 425 500 350 Balance 195 270 350 340 - Objective General Appearance: positive: No acute distress, Alert, Other (gaunt, cachectic) Eyes Bilateral: positive: PERRL, EOMI ENT: positive: No signs of dehydration Neck: positive: No JVD Respiratory: positive: No respiratory distress Cardiovascular: positive: Regular rate & rhythm Abdomen: positive: Non-tender, No organomegaly, Nml bowel sounds, No distention Skin: positive: Warm, Dry Extremities: positive: Full ROM Neurologic/Psychiatric: positive: CN's nml (2-12), Motor nml, Depressed mood/affect - Lab Results Fish Bones: 07/13/22 08:19 07/13/22 08:19 Assessment/Plan - Problem List (1) Delirium Impression: 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 This tumor is eroding into his R rib cage (and you can actually put your finger on the outside of his chest wall to feel it). He has had a profound decrease in functional status, has cachexia, and had near immobility when he came into the hospital. He has improved in that he is now eating, gained a little weight, and is able to get up and move around the room a bit, and worked with PT and OT and met the goals. However, in the last 2 weeks he is slowly starting to fade again. Does not want to get out of bed. Is eating less because the pain is getting worse. He lived alone and therefore he can no longer be safely discharged to there. He was started on scheduled oral morphine. Oxycodone is also available prn. (2) Fatigue Better pain control. He did not want a get out of bed for his meals, says he was too tired. He was on 3 times daily scheduled morphine so we reduced to twice daily. Fatigue really did not get much better and pain got worse. So we increased the morphine to 3 times daily again. 07/09, he told me that the morphine is "a puff". It immediately takes away the pain but it does not last very long. We increased morphine to 4 times a day in this terminally ill gentleman on 07/09 Pain is better controlled since then. He feels more relief and is not as severe and stabbing (3) Severe protein calorie malnutrition He has severe protein calorie malnutrition, but overall we think he will succumb to his neoplasm. We checked routine labs on 07/13, since none had been done for over a week, and they were all stable. No intervention. weight peaked at 48 kg and he is slowly losing weight again. (4) Cognitive impairment He has cognitive impairment that renders him unable to make his own decisions. He lived alone and therefore can no longer be safely discharged to there. We are awaiting an emergency guardianship to be established to make [facility] location plans, going forward for this gentleman. He would like to be in Hospice. The last Hospitalist did speak to an trademark attorney on 06/13/22, who is pursuing this whole process with the hospital. ALBERTO has said that his grand-nephew recently said he would be available to be guardian. That hospitalist spoke to the same trademark attorney 06/25 and emergency guardianship with "grandson" by name (not legal) Miquel is being considered for POA. Working on a court appointed guardian. Meanwhile ALBERTO has been looking for an [facility] for him to go to, and a facility requested that PT and OT instruct him on passive ROM, and document that encounter. This was done. Also, we ordered a Flu shot (for adult >65 y/o) as requested by an [facility]. He got the Flu shot on 07/05. There was a conference between his court appointed guardian, and 2 people who are related to his girlfriend on 07/12. Even though there is no legal marriage, they regard him as "" to this lady and feel that he is part of their family. They lost contact with him and have been unable to find them for the last few months because of his moving around getting a new cell phone. In addition to the guardian, those 2 people, it was social work and the last Hospitalist meeting. One of the relatives works for [employer] and is well aware of how the system works. That relative would like to be his power of trademark attorney and that is being worked through as well.
[2022-07-26] MEDS: ZINC OXIDE 20% OINT 30 GM TUBE TOP PRN (05:22)
[2022-07-26] MEDS: MORPHINE IR 15 MG TABLET PO SCH (09:07)
[2022-07-26] MEDS: MULTIVITAMIN W/MINERALS TABLET PO SCH (09:07)
[2022-07-26] MEDS: SENNA 8.6 MG TABLET PO SCH ×2 (09:07→21:22)
[2022-07-26] MEDS: ENOXAPARIN 40 MG/0.4 ML SYRINGE SUBQ SCH (09:07)
[2022-07-26] MEDS: DOCUSATE SODIUM 250 MG CAPSULE PO SCH ×2 (09:07→21:22)
[2022-07-26] MEDS: polyethylene glycoL 3350 17 GM PACKET PO SCH (09:17)
--- NOTE | 2022-07-26 10:39 | PROVIDER PROGRESS NOTE ---
Subjective - Prog Note Date Prog Note Date: 07/26/22 Prog Note Time: 10:37 - Subjective Subjective: He continues to sleep most of the day. He will get out of bed to eat but crawls right back in bed because of pain. Pain is right mid axillary, armpit. Also radiates into the scapula. It hurts more sitting up and he prefers to lay down. Current Medications - Current Medications Current Medications: Active Medications Acetaminophen (Acetaminophen 325 Mg Tablet) 650 mg PO Q4HR PRN PRN Reason: Pain 1 to 4, or Fever Last Admin: 07/08/22 12:16 Dose: 650 mg Docusate Sodium (Docusate Sodium 250 Mg Capsule) 250 - 500 mg PO BID [facility] Last Admin: 07/26/22 09:07 Dose: 250 mg Enoxaparin Sodium (Enoxaparin 40 Mg/0.4 Ml Syringe) 40 mg SUBQ DAILY [facility] Last Admin: 07/26/22 09:07 Dose: 40 mg Lorazepam (Lorazepam 0.5 Mg Tablet) 1 mg SL Q4H PRN PRN Reason: Anxiety Last Admin: 07/19/22 00:06 Dose: 1 mg Morphine Sulfate (Morphine Ir 15 Mg Tablet) 7.5 mg PO QID [facility] Last Admin: 07/26/22 09:07 Dose: 7.5 mg Multi-Ingredient Ointment (Zinc Oxide 20% Oint 30 Gm Tube) 1 applic TOP PRN PRN PRN Reason: Skin Care Last Admin: 07/26/22 05:22 Dose: 1 applic Multivitamins/Minerals (Multivitamin W/Minerals Tablet) 1 tab PO DAILYWM [facility] Last Admin: 07/26/22 09:07 Dose: 1 tab Ondansetron HCl (Ondansetron Odt 4 Mg Tablet) 4 mg TL Q6HR PRN PRN Reason: Nausea / Vomiting Oxycodone HCl (Oxycodone 10 Mg/0.5 Ml Syringe) 5 mg PO Q4HR PRN PRN Reason: PAIN Last Admin: 07/23/22 19:48 Dose: 5 mg Polyethylene Glycol (Polyethylene Glycol 3350 17 Gm Packet) 17 gm PO DAILY [facility] Last Admin: 07/26/22 09:17 Dose: 17 gm Psyllium Hydrophilic Mucilloid (Psyllium Packet) 1 packet PO DAILY PRN PRN Reason: Constipation Last Admin: 07/11/22 12:37 Dose: 1 packet Senna (Senna 8.6 Mg Tablet) 8.6 - 17.2 mg PO BID [facility] Last Admin: 07/26/22 09:07 Dose: 8.6 mg No Known Home Medications 05/30/22 Objective - Vital Signs/Intake & Output Reviewed Vital Signs: Yes Vital Signs: Vital Signs x48h Temp Pulse Resp BP Pulse Ox 07/26/22 07:43 36.6 C 58 L 20 107/43 L 95 Intake & Output: Intake & Output 07/23/22 07/24/22 07/25/22 07/26/22 23:59 23:59 23:59 23:59 Intake Total 770 700 880 390 Output Total 500 350 400 275 Balance 270 350 480 115 - Objective General Appearance: positive: Alert, Other (Just finished eating breakfast and just got back in bed. He says that it hurts too much to sit up and prefers to lay down. Pain is in the armpit of his right side) Eyes Bilateral: positive: PERRL, EOMI Neck: positive: No JVD. negative: Stiff neck Respiratory: positive: No respiratory distress. negative: Wheezes, Rales, Rhonchi Cardiovascular: positive: Regular rate & rhythm Abdomen: positive: Non-tender, No organomegaly, Nml bowel sounds, No distention Skin: positive: Warm, Dry Extremities: positive: Full ROM, No pedal edema Neurologic/Psychiatric: positive: Oriented x3 (Today is the first time he is in able to tell me he knows where he is, why he is here, and the date.), CN's nml (2-12). negative: Motor nml (Generalized weakness. 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 This tumor is eroding into his R rib cage (and you can actually put your finger on the outside of his chest wall to feel it). He has had a profound decrease in functional status, has cachexia, and had near immobility when he came into the hospital. He has improved in that he is now eating, gained a little weight, and is able to get up and move around the room a bit, and worked with PT and OT and met the goals. However, in the last 4 weeks he is slowly starting to fade again. Does not want to get out of bed. Is eating less because the pain is getting worse. He lived alone and therefore he can no longer be safely discharged to there. At the beginning we started him on Roxanol only. But there started to be a nationwide shortage of Roxilox was changed him to immediate release morphine. That sedated him at 15 mg 4 times a day. So we decreased that to a small amount 4 times a day and eventually ended up at 7.5 mg 3 times a day. It was not lasting long enough to control his pain so he increased to 4 times a day on . I am using oxycodone for breakthrough pain. Today he tells me that the pain is what bothers him the most. 4 times a day immediate release morphine is not lasting long enough. Plan: Changed to MS Contin 15 mg twice daily Continue oxycodone oral solution and increase it to every 2 hours as needed (2) Fatigue Better pain control. He did not want a get out of bed for his meals, says he was too tired. He was on 3 times daily scheduled morphine so we reduced to twice daily. Fatigue really did not get much better and pain got worse. So we increased the morphine to 3 times daily again. 07/09, he told me that the morphine is "a puff". It immediately takes away the pain but it does not last very long. We increased morphine to 4 times a day in this terminally ill gentleman on 07/09 Pain is better controlled since then. He feels more relief and is not as severe and stabbing (3) Severe protein calorie malnutrition He has severe protein calorie malnutrition, but overall we think he will succumb to his neoplasm. We checked routine labs on 07/13, since none had been done for over a week, and they were all stable. No intervention. weight peaked at 48 kg and he is slowly losing weight again. Early this week he was 45 kg and today 44.5 kg. (4) Cognitive impairment He has cognitive impairment that renders him unable to make his own decisions. He lived alone and therefore can no longer be safely discharged to there. We are awaiting an emergency guardianship to be established to make [facility] location plans, going forward for this gentleman. He would like to be in Hospice. The last Hospitalist did speak to an assistant attorney general on 06/13/22, who is pursuing this whole process with the hospital. ALBERTO has said that his grand-nephew recently said he would be available to be guardian. That hospitalist spoke to the same assistant attorney general 06/25 and emergency guardianship with "grandson" by name (not legal) Miquel is be ing considered for POA. Working on a court appointed guardian. Meanwhile ALBERTO has been looking for an [facility] for him to go to, and a facility requested that PT and OT instruct him on passive ROM, and document that encounter. This was done. Also, we ordered a Flu shot (for adult >65 y/o) as requested by an [facility]. He got the Flu shot on 07/05. There was a conference between his court appointed guardian, and 2 people who are related to his girlfriend on 07/12. Even though there is no legal marriage, they regard him as "" to this lady and feel that he is part of their family. They lost contact with him and have been unable to find them for the last few months because of his moving around getting a new cell phone. In addition to the guardian, those 2 people, it was social work and the last Hospitalist meeting. One of the relatives works for [employer] and is well aware of how the system works. That relative would like to be his power of assistant attorney general and that is being worked through as well.
[2022-07-26] MEDS: MORPHINE ER 15 MG TABLET PO SCH ×2 (13:05→21:26)
[2022-07-26] MEDS: oxyCODONE 10 MG/0.5 ML SYRINGE PO PRN (15:34)
[2022-07-27] MEDS: oxyCODONE 10 MG/0.5 ML SYRINGE PO PRN (06:45)
[2022-07-27] MEDS: polyethylene glycoL 3350 17 GM PACKET PO SCH (09:30)
[2022-07-27] MEDS: SENNA 8.6 MG TABLET PO SCH ×2 (09:30→21:14)
[2022-07-27] MEDS: MORPHINE ER 15 MG TABLET PO SCH ×2 (09:31→21:14)
[2022-07-27] MEDS: ENOXAPARIN 40 MG/0.4 ML SYRINGE SUBQ SCH (09:31)
[2022-07-27] MEDS: MULTIVITAMIN W/MINERALS TABLET PO SCH (09:31)
[2022-07-27] MEDS: DOCUSATE SODIUM 250 MG CAPSULE PO SCH ×2 (09:31→21:15)
--- NOTE | 2022-07-27 13:40 | PROVIDER PROGRESS NOTE ---
Subjective - Prog Note Date Prog Note Date: 07/27/22 Prog Note Time: 13:38 - Subjective Subjective: No change in his activity with use of MS Contin. He is getting up at the same time he only says, still eating very little, and then goes back to sleep. When I ask him if his pain is little bit better he wrinkles his nose and tells me that "maybe it is". Current Medications - Current Medications Current Medications: Active Medications Acetaminophen (Acetaminophen 325 Mg Tablet) 650 mg PO Q4HR PRN PRN Reason: Pain 1 to 4, or Fever Last Admin: 07/08/22 12:16 Dose: 650 mg Docusate Sodium (Docusate Sodium 250 Mg Capsule) 250 - 500 mg PO BID [facility] Last Admin: 07/27/22 09:31 Dose: 250 mg Enoxaparin Sodium (Enoxaparin 40 Mg/0.4 Ml Syringe) 40 mg SUBQ DAILY [facility] Last Admin: 07/27/22 09:31 Dose: 40 mg Lorazepam (Lorazepam 0.5 Mg Tablet) 1 mg SL Q4H PRN PRN Reason: Anxiety Last Admin: 07/19/22 00:06 Dose: 1 mg Morphine Sulfate (Morphine Er 15 Mg Tablet) 15 mg PO BID [facility] Last Admin: 07/27/22 09:31 Dose: 15 mg Multi-Ingredient Ointment (Zinc Oxide 20% Oint 30 Gm Tube) 1 applic TOP PRN PRN PRN Reason: Skin Care Last Admin: 07/26/22 05:22 Dose: 1 applic Multivitamins/Minerals (Multivitamin W/Minerals Tablet) 1 tab PO DAILYWM [facility] Last Admin: 07/27/22 09:31 Dose: 1 tab Ondansetron HCl (Ondansetron Odt 4 Mg Tablet) 4 mg TL Q6HR PRN PRN Reason: Nausea / Vomiting Oxycodone HCl (Oxycodone 10 Mg/0.5 Ml Syringe) 5 mg PO Q4HR PRN PRN Reason: PAIN Last Admin: 07/27/22 06:45 Dose: 5 mg Polyethylene Glycol (Polyethylene Glycol 3350 17 Gm Packet) 17 gm PO DAILY [facility] Last Admin: 07/27/22 09:30 Dose: 17 gm Psyllium Hydrophilic Mucilloid (Psyllium Packet) 1 packet PO DAILY PRN PRN Reason: Constipation Last Admin: 07/11/22 12:37 Dose: 1 packet Senna (Senna 8.6 Mg Tablet) 8.6 - 17.2 mg PO BID MICHAELA Last Admin: 07/27/22 09:30 Dose: 8.6 mg No Known Home Medications 05/30/22 Objective - Vital Signs/Intake & Output Reviewed Vital Signs: Yes Intake & Output: Intake & Output 07/24/22 07/25/22 07/26/22 07/27/22 23:59 23:59 23:59 23:59 Intake Total 403 550 5462 100 Output Total 350 400 475 375 Balance 350 480 585 -275 - Objective General Appearance: positive: No acute distress, Alert, Other (Cachectic elderly gentleman, comfortable) Eyes Bilateral: positive: PERRL, EOMI ENT: positive: No signs of dehydration Neck: positive: No JVD Respiratory: positive: No respiratory distress. negative: Wheezes, Rales, Rhonchi Cardiovascular: positive: Regular rate & rhythm Abdomen: positive: Non-tender, No organomegaly, Nml bowel sounds, No distention Skin: positive: Warm, Dry Extremities: positive: Full ROM, No pedal edema Neurologic/Psychiatric: positive: CN's nml (2-12), Disoriented to time. negative: Motor nml (While he has no focal deficits, he has moderate generalized weakness. 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 This tumor is eroding into his R rib cage (and you can actually put your finger on the outside of his chest wall to feel it). He has had a profound decrease in functional status, has cachexia, and had near immobility when he came into the hospital. He has improved in that he is now eating, gained a little weight, and is able to get up and move around the room a bit, and worked with PT and OT and met the goals. However, in the last 4 weeks he is slowly starting to fade again. Does not want to get out of bed. Is eating less because the pain is getting worse. He lived alone and therefore he can no longer be safely discharged to there. At the beginning we started him on Roxanol only. But there started to be a nationwide shortage of Roxilox was changed him to immediate release morphine. That sedated him at 15 mg 4 times a day. So we decreased that to a small amount 4 times a day and eventually ended up at 7.5 mg 3 times a day. It was not lasting long enough to control his pain so he increased to 4 times a day on July 09. I am using oxycodone for breakthrough pain. Today he tells me that the pain is what bothers him the most. 4 times a day immediate release morphine is not lasting long enough. Plan: Changed to MS Contin 15 mg twice daily 07/26 Continue oxycodone oral solution and increase it to every 2 hours as needed (2) Fatigue Better pain control. He did not want a get out of bed for his meals, says he was too tired. He was on 3 times daily scheduled morphine so we reduced to twice daily. Fatigue really did not get much better and pain got worse. So we increased the morphine to 3 times daily again. 07/09, he told me that the morphine is "a puff". It immediately takes away the pain but it does not last very long. We increased morphine to 4 times a day in this terminally ill gentleman on 07/09 Pain is better controlled since then. He feels more relief and is not as severe and stabbing (3) Severe protein calorie malnutrition He has severe protein calorie malnutrition, but overall we think he will succumb to his neoplasm. We checked routine labs on 07/13, since none had been done for over a week, and they were all stable. No intervention. weight peaked at 48 kg and he is slowly losing weight again. Early this week he was 45 kg and today 44.5 kg. (4) Cognitive impairment He has cognitive impairment that renders him unable to make his own decisions. He lived alone and therefore can no longer be safely discharged to there. We are awaiting an emergency guardianship to be established to make [facility] location plans, going forward for this gentleman. He would like to be in Hospice. The last Hospitalist did speak to an traffic law attorney on 06/13/22, who is pursuing this whole process with the hospital. SW has said that his grand-nephew recently said he would be available to be guardian. That hospitalist spoke to the same traffic law attorney 06/25 and emergency guardianship with "grandson" by name (not legal) Miquel is being considered for POA. Working on a court appointed guardian. Meanwhile SW has been looking for an [facility] for him to go to, and a facility requested that PT and OT instruct him on passive ROM, and document that encounter. This was done. Also, we ordered a Flu shot (for adult >65 y/o) as requested by an [facility]. He got the Flu shot on 07/05. There was a conference between his court appointed guardian, and 2 people who are related to his girlfriend on 07/12. Even though there is no legal marriage, they regard him as "" to this lady and feel that he is part of their fa alissa. They lost contact with him and have been unable to find them for the last few months because of his moving around getting a new cell phone. In addition to the guardian, those 2 people, it was social work and the last Hospitalist meeting. One of the relatives works for [employer] and is well aware of how the system works. That relative would like to be his power of traffic law attorney and that is being worked through as well.
[2022-07-27] MEDS: ACETAMINOPHEN 325 MG TABLET PO PRN (23:55)
[2022-07-28] MEDS: MULTIVITAMIN W/MINERALS TABLET PO SCH (08:25)
[2022-07-28] MEDS: SENNA 8.6 MG TABLET PO SCH ×2 (08:25→20:51)
[2022-07-28] MEDS: DOCUSATE SODIUM 250 MG CAPSULE PO SCH ×3 (08:25→21:00)
[2022-07-28] MEDS: MORPHINE ER 15 MG TABLET PO SCH ×2 (08:25→20:51)
[2022-07-28] MEDS: ENOXAPARIN 40 MG/0.4 ML SYRINGE SUBQ SCH (08:25)
[2022-07-28] MEDS: polyethylene glycoL 3350 17 GM PACKET PO SCH (08:25)
[2022-07-28] MEDS: oxyCODONE 10 MG/0.5 ML SYRINGE PO PRN ×2 (13:41→18:04)
--- NOTE | 2022-07-28 17:02 | PROVIDER PROGRESS NOTE ---
Progress Note July 28, 2022 5 PM No new events. He is tolerating his MS Contin 15 mg p.o. twice daily as well as oxycodone for breakthrough pain. Spends most of his time in bed. Is very uncomfortable sitting up because of the armpit pain and the mid axillary pain. Vital signs stable, afebrile. Elderly gentleman, cachectic, awakens to my voice and touch. Alert, cooperative. He has become more oriented over the last couple of weeks and he knows where he is and why he is here. He just cannot tell me the date. Coarse upper airway sounds. Regular rate and rhythm. And abdomen that is scaphoid, soft, nontender. Extremities that have diffuse loss of muscle wasting from cachexia and malnutrition. Assessment/plan metastatic lung cancer. Focus is comfort measures only. We are trying to find placement for him.
[2022-07-29] MEDS: DOCUSATE SODIUM 250 MG CAPSULE PO SCH ×3 (08:56→20:49)
[2022-07-29] MEDS: polyethylene glycoL 3350 17 GM PACKET PO SCH (08:56)
[2022-07-29] MEDS: ENOXAPARIN 40 MG/0.4 ML SYRINGE SUBQ SCH (09:40)
[2022-07-29] MEDS: MORPHINE ER 15 MG TABLET PO SCH ×2 (09:40→20:49)
[2022-07-29] MEDS: MULTIVITAMIN W/MINERALS TABLET PO SCH (09:42)
[2022-07-29] MEDS: ACETAMINOPHEN 325 MG TABLET PO PRN (12:15)
--- NOTE | 2022-07-29 15:25 | PROVIDER PROGRESS NOTE ---
Progress Note July 29, 2022 3:23 PM No new events. No new complaints. Tolerating his pain medicines without excessive sedation. Not eating very much. Temperature is 36.5. Heart rate 65. Over the last day blood pressure is becoming slightly hypotensive. He is 113 systolic, as high as 137 systolic. But today he is 109, 114, and 81 systolic. He is alert when I touch his shoulder and wake him up. He knows where he is, "the hospital" just not what town. He knows that he is here for pain management for his lung cancer. I have asked him again again today if he needs me to change anything should to send him to a specialist and get therapy and he says no. Coarse upper airway sounds, clear. No respiratory distress Regular rate and rhythm Scaphoid abdomen with normal bowel sounds. Bowel movement today. Gaunt cachectic extremities with decreased muscle mass. He is losing weight again. Assessment/plan Metastatic lung cancer. Focus has been on comfort measures since admission at his request. He has a guardian now. The only thing left is some financial information that needs to be filed to get Medicaid. But that may not happen and that that information is not obtainable. As such the patient may end up with us for the indefinite future and may pass away with us.
[2022-07-29] MEDS: SENNA 8.6 MG TABLET PO SCH (20:48)
[2022-07-30] MEDS: polyethylene glycoL 3350 17 GM PACKET PO SCH (08:31)
[2022-07-30] MEDS: SENNA 8.6 MG TABLET PO SCH ×2 (08:31→21:20)
[2022-07-30] MEDS: DOCUSATE SODIUM 250 MG CAPSULE PO SCH ×2 (08:31→21:20)
[2022-07-30] MEDS: ENOXAPARIN 40 MG/0.4 ML SYRINGE SUBQ SCH (09:00)
[2022-07-30] MEDS: MORPHINE ER 15 MG TABLET PO SCH ×2 (09:00→21:20)
[2022-07-30] MEDS: MULTIVITAMIN W/MINERALS TABLET PO SCH (09:00)
[2022-07-30] MEDS: oxyCODONE 10 MG/0.5 ML SYRINGE PO PRN (13:27)
--- NOTE | 2022-07-30 14:32 | PROVIDER PROGRESS NOTE ---
Assessment/Plan - Problem List (1) Metastatic lung cancer (metastasis from lung to other site) Qualifiers: Qualified Code(s): C34.90 - Malignant neoplasm of unspecified part of unspecified bronchus or lung Assessment/Plan: Focus has been on pain control since admission. He has a guardian now. The only thing left is some financial information that needs to be filed to get Medicaid so that he can be discharged to a facility. But that may not happen and that that information is not obtainable. His pain has increased and Morphine has been changed from 10 mg tid douglas, to 15 mg bid. This also makes him more sleepy and weaker. Will order a Hospice Consult to give us any recommendations. The pt may qualify for GIP admission to Hospice for increasing narcotic pain med needs. 2) Cognitive impairment He was tested early in this admission and found to have no capacity for making decisions. Therefore the guardian needed to be assigned. 3) FTT His oral intake has decreased substantially. For this reason also, the Hospice consult will be requested. - Current Meds Current Meds: Current Medications Generic Name Dose Route Start Last Admin Trade Name Freq PRN Reason Stop Dose Admin Acetaminophen 650 mg 05/29/22 14:15 07/29/22 12:15 Acetaminophen 325 Mg Tablet PO 650 mg Q4HR PRN Administration Pain 1 to 4, or Fever Docusate Sodium 250 - 500 mg 07/04/22 21:00 07/30/22 08:31 Docusate Sodium 250 Mg Capsule PO Not Given BID DOUGLAS Enoxaparin Sodium 40 mg 05/30/22 09:00 07/30/22 09:00 Enoxaparin 40 Mg/0.4 Ml Syringe SUBQ 40 mg DAILY DOUGLAS Administration Lorazepam 1 mg 07/13/22 18:33 07/19/22 00:06 Lorazepam 0.5 Mg Tablet SL 1 mg Q4H PRN Administration Anxiety Morphine Sulfate 15 mg 07/26/22 13:00 07/30/22 09:00 Morphine Er 15 Mg Tablet PO 15 mg BID DOUGLAS Administration Multi-Ingredient Ointment 1 applic 05/30/22 22:39 07/26/22 05:22 Zinc Oxide 20% Oint 30 Gm Tube TOP 1 applic PRN PRN Administration Skin Care Multivitamins/Minerals 1 tab 05/30/22 11:00 07/30/22 09:00 Multivitamin W/Minerals Tablet PO 1 tab DAILYWM DOUGLAS Administration Oxycodone HCl 5 mg 06/23/22 09:56 07/30/22 13:27 Oxycodone 10 Mg/0.5 Ml Syringe PO 5 mg Q4HR PRN Administration PAIN Polyethylene Glycol 17 gm 05/30/22 09:00 07/30/22 08:31 Polyethylene Glycol 3350 17 Gm Packet PO Not Given DAILY DOUGLAS Psyllium Hydrophilic Mucilloid 1 packet 06/21/22 08:53 07/11/22 12:37 Psyllium Packet PO 1 packet DAILY PRN Administration Constipation Senna 8.6 - 17.2 mg 07/04/22 17:00 07/30/22 08:31 Senna 8.6 Mg Tablet PO Not Given BID DOUGLAS - Lab Result Fish Bone Diagrams: 07/13/22 08:19 07/13/22 08:19 - Additional Planning My Orders: My Active Orders 07/30/22 Hospice Resident Associate Consult [CONS] Routine Subjective - Subjective Patient Reports: Pain (Worse pain in R rib cage) Nursing Reports: Other (More agitated than 1 week ago, saying the t he wants to get back into bed as soon as he is placed in a chair.) Objective Vital Signs: Vital Signs - 24 hr 07/30/22 08:24 Temperature 36.6 C Heart Rate [ 61 Brachial] Respiratory 20 Rate Blood Pressure 96/45 L [Left Brachial artery] Blood Pressure 96/49 L [Right Brachial artery] O2 Saturation 94 Oxygen O2 Source Room air I&O (Last 24 Hrs): Intake and Output Totals x24h 07/28/22 07/29/22 07/30/22 23:59 23:59 23:59 Intake Total 870 590 840 Output Total 325 425 325 Balance 545 165 515 General: Other (Asleep, cachectic elderly male) HEENT: Mucous membr. moist/pink Neck: Supple Neuro: Alert, Non Focal, Other (Poor memory) Cardiovascular: Regular rate Respiratory: No respiratory distress Abdomen: Soft Extremities: No clubbing, No edema - Results Results: Laboratory Results WBC 8.4 x10^3/uL (4.8-10.8) 07/13/22 08:19 RBC 3.87 10^6/uL (4.70-6.10) L 07/13/22 08:19 Hgb 9.7 g/dL (14.0-18.0) L 07/13/22 08:19 Hct 32.7 % (42.0-52.0) L 07/13/22 08:19 MCV 84.5 fL (80.0-94.0) 07/13/22 08:19 MCH 25.1 pg (27.0-31.0) L 07/13/22 08:19 MCHC 29.7 g/dL (32.0-36.0) L 07/13/22 08:19 RDW 15.9 % (12.0-15.0) H 07/13/22 08:19 Plt Count 543 10^3/uL (130-450) H 07/13/22 08:19 MPV 8.6 fL (7.4-11.4) 07/13/22 08:19 Neut # (Auto) 5.7 10^3/uL (1.5-6.6) 07/13/22 08:19 Lymph # (Auto) 1.4 10^3/uL (1.5-3.5) L 07/13/22 08:19 [place] # (Auto) 1.0 10^3/uL (0.0-1.0) 07/13/22 08:19 Eos # (Auto) 0.1 10^3/uL (0.0-0.7) 07/13/22 08:19 Baso # (Auto) 0.1 10^3/uL (0.0-0.1) 07/13/22 08:19 Absolute Nucleated RBC 0.00 x10^3/uL 07/13/22 08:19 Nucleated RBC % 0.0 /100WBC 07/13/22 08:19 PT 13.8 secs (9.9-12.6) H 05/30/22 04:50 INR 1.3 (0.8-1.2) H 05/30/22 04:50 Sodium 133 mmol/L (135-145) L 07/13/22 08:19 Potassium 3.9 mmol/L (3.5-5.0) 07/13/22 08:19 Chloride 94 mmol/L (101-111) L 07/13/22 08:19 Carbon Dioxide 27 mmol/L (21-32) 07/13/22 08:19 Anion Gap 12.0 (6-13) 07/13/22 08:19 BUN 18 mg/dL (6-20) 07/13/22 08:19 Creatinine 0.8 mg/dL (0.6-1.2) 07/13/22 08:19 Estimated GFR (MDRD) 93 (>89) 07/13/22 08:19 Glucose 94 mg/dL (70-100) 07/13/22 08:19 Calcium 9.1 mg/dL (8.5-10.3) 07/13/22 08:19 Phosphorus 1.1 mg/dL (2.5-4.6) L 05/30/22 04:50 Magnesium 2.1 mg/dL (1.7-2.8) 06/07/22 05:01 Total Bilirubin 0.8 mg/dL (0.2-1.0) 05/29/22 06:20 AST 20 IU/L (10-42) 05/29/22 06:20 ALT 17 IU/L (10-60) 05/29/22 06:20 Alkaline Phosphatase 58 IU/L (42-121) 05/29/22 06:20 Total Creatine Kinase 87 IU/L (22-269) 05/28/22 11:50 Total Protein 6.4 g/dL (6.7-8.2) L 05/29/22 06:20 Albumin 2.5 g/dL (3.2-5.5) L 05/29/22 06:20 Globulin 3.9 g/dL (2.1-4.2) 05/29/22 06:20 Albumin/Globulin Ratio 0.6 (1.0-2.2) L 05/29/22 06:20 Lipase 35 U/L (22-51) 05/29/22 06:20 TSH 2.68 uIU/mL (0.34-5.60) 05/30/22 04:50 Urine Color DARK YELLOW 05/28/22 12:07 Urine Clarity CLEAR (CLEAR) 05/28/22 12:07 Urine pH 6.0 PH (5.0-7.5) 05/28/22 12:07 Ur Specific [place] 1.025 (1.002-1.030) 05/28/22 12:07 Urine Protein 30 mg/dL (NEGATIVE) H 05/28/22 12:07 Urine Glucose (UA) NEGATIVE mg/dL (NEGATIVE) 05/28/22 12:07 Urine Ketones 15 mg/dL (NEGATIVE) H 05/28/22 12:07 Urine Occult Blood LARGE (NEGATIVE) H 05/28/22 12:07 Urine Nitrite NEGATIVE (NEGATIVE) 05/28/22 12:07 Urine Bilirubin NEGATIVE (NEGATIVE) 05/28/22 12:07 Urine Urobilinogen 1 (NORMAL) E.U./dL (NORMAL) 05/28/22 12:07 Ur Leukocyte Esterase NEGATIVE (NEGATIVE) 05/28/22 12:07 Urine RBC TNTC /HPF (0-5) H 05/28/22 12:07 Urine WBC 6-10 /HPF (0-3) H 05/28/22 12:07 Ur Epithelial Cells MOD Transitional /HPF (<= Few) H 05/28/22 12:07 Ur Squamous Epith Cells FEW Squamous (<= Few) 05/28/22 12:07 Urine Bacteria Few /HPF (None Seen) 05/28/22 12:07 Urine Casts 6-10 Hyaline Casts /LPF 05/28/22 12:07 Ur Microscopic Review INDICATED 05/28/22 12:07 Urine Culture Comments NOT INDICATED 05/28/22 12:07 Coronavirus (PCR) NEGATIVE 05/29/22 14:20 - Procedures Procedures: Procedures ENDO RECTUM POLYPECTOMY (04/27/15) ENDOSC POLYPECTOMY OF LG INTEST (04/27/15) EXCISION OF ASCENDING COLON, ENDO, DIAGN (05/02/17) EXCISION OF DESCENDING COLON, ENDO, DIAGN (05/02/17) EXCISION OF LEFT LOWER LEG SKIN, EXTERNAL APPROACH, DIAGN (11/16/20) EXCISION OF TRANSVERSE COLON, ENDO, DIAGN (05/02/17)
--- NOTE | 2022-07-30 15:21 | CONSULTATION NOTE ---
Referring Provider Name of Referring Provider:: Hospitalist Team Consult Date: 07/30/22 History of Present Illness - Admitted From Admitted From:: Home - History Obtained From Records Reviewed: EMR History obtained from: Pt - History of Present Illness HPI Comment/Other: 81 yo male w/HTN, hypothyroidism and hyperlipidemia who was admitted to the [facility] on May with weakness, weight loss, FTT, anorexia and what was initially thought to be pneumonia. He had been complaining of right sided pleuritic chest pain back in 01/03, but failed to follow-up for recommended testing. CT of the chest/abdomen/pelvis here which revealed concerning findings for metastatic lung cancer, inclusive of pleural effusion, 3rd rib pathologic fracture, erosion into the chest wall and pleural metastases. Mediastinal and hilar adenopathy was noted. Unfortunately, pt was felt not to have capacity to make his own decisions and was a poor candidate for treatment. He was admitted to the hospitalist service w/plans for placement. He has had a prolonged hospital stay d/t need for a state appointed guardian and a payer source for an adult family chcf. He has been accepted to a facility in [place], [place] pending financial determination. Pt has been c/o axillary and right arm pain. He was receiving MS contin 7.5 TID through 07/25. That was titrated to 15 mg BID on 07/26. He is also receiving PRN oxycodone. His last dose of PRN oxycodone was on 07/28 at around midnight. He has been refusing to sit up in a chair over the past couple of days d/t pain. RN notes he is sleeping more overall. He is eating less. She notes he is able to use his call light appropriately. Pt currently rates his pain at around 5/10 at rest. He notes it increases to 10/10 w/movement of his right arm. He denies any nausea/SOB/abdominal pain. He notes he is voiding and moving his bowels okay. He states he has a poor appetite. He notes since being on pain medication and the changes made several days ago, he is more comfortable. History - Past Medical History Cardiovascular: reports: Hypertension, High cholesterol Respiratory: reports: Other (costochondritis) Neuro: reports: None Endocrine/Autoimmune: reports: HyPOthyroidism GI: reports: Colon polyps : reports: Other (Erectile dysfunction and genital herpes) HEENT: reports: None Psych: reports: None Musculoskeletal: reports: Osteoarthritis Derm: reports: Eczema, Other (Seborrheic dermatitis, chronic venous stasis dermatitis with ulcers) MRSA Hx?: No Other Past Medical History: Past medical history obtained from medical report. - Past Surgical History General: reports: Colonoscopy HEENT: reports: Tonsil/Adenoidectomy - Family & Social History Family History: Mother: , Father: Family History Comment/Other: Pt does not remember his parents' medical history but believes they were both healthy up until time of . His daughter at approximately age 45 of either CHF or emphysema, he cannot remember which. Living arrangement: At home Living Situation: Alone Social History Notes: Lives alone in a cottage, no pets. from live in partner for >40 years, believes she is currently living in [place]. She has mental illness, schizophrenia. Never legally to 2 women and refers to the children and grandchildren of these women as "his" family although no legal or blood relation. 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 Quit smoking 1969, previously smoked tobacco approx 1 PPD for 10 years. Rarely drinks alcohol and none lately. Denies illicit drug use. - Substance History Use: Uses substance without health or social issues: NONE Abuse: Recurrent use of substance despite neg consequences: NONE Dependence: Experiences withdrawal or developed tolerances: NONE - POLST Patient has POLST: No POLST Status: DNR Meds/Allgy - Home Medications Home Medications: Ambulatory Orders Medication Instructions Recorded Confirmed No Known Home Medications 05/30/22 05/30/22 - Allergies Allergies/Adverse Reactions: Allergies Allergy/AdvReac Type Severity Reaction Status Date / Time chocolate flavor AdvReac Headache Verified 06/11/22 11:29 codeine AdvReac Nausea Verified 05/28/22 11:31 Exam - Vital Signs Reviewed Vital Signs: Yes Vital Signs: Vital Signs x48h Temp Pulse Resp BP BP Pulse Ox 07/30/22 08:24 36.6 C 61 20 96/45 L 96/49 L 94 - Physical Exam General Appearance: positive: No acute distress, Alert, Other (chronically ill appearing) Eyes Bilateral: positive: Normal inspection, PERRL ENT: positive: ENT inspection nml, Dry mucous membranes Neck: positive: Nml inspection, Trachea midline Respiratory: positive: No respiratory distress, Other (Diminished breath sounds to L mid and lower lung zones) Cardiovascular: positive: Regular rate & rhythm, No murmur, No gallop Abdomen: positive: Non-tender, No organomegaly, Nml bowel sounds, No distention, Other (thin) Skin: positive: Color nml Extremities: positive: Non-tender Neurologic/Psychiatric: positive: Other (Oriented x 1-2) Conclusion/Plan - Lab Results Lab results reviewed: Yes Fish Bones: 07/13/22 08:19 07/13/22 08:19 - Diagnostic Imaging Results Diagnostic Imaging Results: positive: Final report reviewed - Other Other Results/Comments: 1. Metastatic disease likely of lung origin w/left chest wall/3rd rib and pleural involvement as well as lymphadenopathy. 2. Anorexia/cachexia of malignancy 3. Tobacco dependence in remission - 25-30 pack year smoking hx 4. Alcohol dependence in remission 5. Cognitive impairment 6. Generalized weakness At this time, pt is clearly hospice appropriate and has a prognosis less than 6 months. He does not have an indication for GIP admission for pain or symptom management. He definitely will benefit from more aggressive pain mgmt. At this time I recommend: Transition to methadone 2.5 mg po BID and discontinue MS contin. This will work better for neuropathic and bone pain Encourage RN to premedicate with oxycodone prior to attempting to get him to sit up as well as more liberal use of oxycodone in general, as he has not had a dose in nearly 48 hours. Consider addition of a lidoderm patch to his axilla/chest for topical pain relief while waiting for methadone to take effect. Consider the addition of dexamethasone 4 mg BID for several days, then reduce to once daily for relief of bone pain and appetite stimulation. Thank you for this consult.
[2022-07-31] MEDS: DOCUSATE SODIUM 250 MG CAPSULE PO SCH ×2 (00:11→21:15)
[2022-07-31] MEDS: SENNA 8.6 MG TABLET PO SCH ×2 (00:12→21:16)
[2022-07-31] MEDS: polyethylene glycoL 3350 17 GM PACKET PO SCH (00:12)
[2022-07-31] MEDS: ENOXAPARIN 40 MG/0.4 ML SYRINGE SUBQ SCH (08:07)
[2022-07-31] MEDS: MULTIVITAMIN W/MINERALS TABLET PO SCH (08:07)
[2022-07-31] MEDS: MORPHINE ER 15 MG TABLET PO SCH ×2 (08:07→21:12)
[2022-07-31] MEDS: oxyCODONE 10 MG/0.5 ML SYRINGE PO PRN ×2 (10:53→17:36)
[2022-08-01] MEDS: MORPHINE ER 15 MG TABLET PO SCH (08:08)
[2022-08-01] MEDS: ZINC OXIDE 20% OINT 30 GM TUBE TOP PRN (08:35)
[2022-08-01] MEDS: oxyCODONE 10 MG/0.5 ML SYRINGE PO PRN (10:52)
[2022-08-01] MEDS: ENOXAPARIN 40 MG/0.4 ML SYRINGE SUBQ SCH (10:54)
[2022-08-01] MEDS: ACETAMINOPHEN 325 MG TABLET PO PRN (11:31)
[2022-08-01] MEDS: MULTIVITAMIN W/MINERALS TABLET PO SCH (13:25)
[2022-08-01] MEDS: DOCUSATE SODIUM 250 MG CAPSULE PO SCH ×2 (13:26→20:47)
[2022-08-01] MEDS: polyethylene glycoL 3350 17 GM PACKET PO SCH (13:28)
[2022-08-01] MEDS: SENNA 8.6 MG TABLET PO SCH ×2 (13:29→20:46)
--- NOTE | 2022-08-01 14:59 | PROVIDER PROGRESS NOTE ---
Assessment/Plan - Problem List (1) Metastatic lung cancer (metastasis from lung to other site) Qualifiers: Qualified Code(s): C34.90 - Malignant neoplasm of unspecified part of unspecified bronchus or lung Assessment/Plan: He has a guardian now. The only thing left is some financial information that needs to be completed so that he can be discharged to a facility. Focus has been on pain control since admission. His pain has slowly increased and Morphine has been changed from 10 mg tid douglas, to 15 mg bid. This also made him more sleepy and weaker. Appreciate the Hospice Consult and recommendations. I will adjust the pain meds as recommended by Dr. Singh: We will stop the extended release morphine twice daily and start methadone 2.5 mg twice daily (better for neuropathic and bone pain). We will stop the as needed oxycodone and schedule it 3 times daily before meals so that he can sit up. Will add a order for Lidoderm patch to his axilla/chest for topical pain relief. Will add dexamethasone 4 mg twice daily for 3 days then decrease to 4 mg daily, for relief of bone pain and for appetite stimulation. Since using Zofran IV, ordered prn, with methadone can increase his QT interval, will stop the as needed Zofran and order as needed Reglan IV. 2) Cognitive impairment He was tested early in this admission and found to have no capacity for making decisions. Therefore the guardian was needed to be assigned. 3) FTT His oral intake has decreased substantially. For this reason also, the Hospice consult was requested. Dexamethasone for appetite stimulation will be ordered, as in #1. - Current Meds Current Meds: Current Medications Generic Name Dose Route Start Last Admin Trade Name Freq PRN Reason Stop Dose Admin Acetaminophen 650 mg 05/29/22 14:15 08/01/22 11:31 Acetaminophen 325 Mg Tablet PO 650 mg Q4HR PRN Administration Pain 1 to 4, or Fever Docusate Sodium 250 - 500 mg 07/04/22 21:00 08/01/22 13:26 Docusate Sodium 250 Mg Capsule PO 250 mg BID DOUGLAS Administration Enoxaparin Sodium 40 mg 05/30/22 09:00 08/01/22 10:54 Enoxaparin 40 Mg/0.4 Ml Syringe SUBQ 40 mg DAILY DOUGLAS Administration Lorazepam 1 mg 07/13/22 18:33 07/19/22 00:06 Lorazepam 0.5 Mg Tablet SL 1 mg Q4H PRN Administration Anxiety Morphine Sulfate 15 mg 07/26/22 13:00 08/01/22 08:08 Morphine Er 15 Mg Tablet PO 15 mg BID DOUGLAS Administration Multi-Ingredient Ointment 1 applic 05/30/22 22:39 08/01/22 08:35 Zinc Oxide 20% Oint 30 Gm Tube TOP 1 applic PRN PRN Administration Skin Care Multivitamins/Minerals 1 tab 05/30/22 11:00 08/01/22 13:25 Multivitamin W/Minerals Tablet PO 1 tab DAILYWM DOUGLAS Administration Oxycodone HCl 5 mg 06/23/22 09:56 08/01/22 10:52 Oxycodone 10 Mg/0.5 Ml Syringe PO 5 mg Q4HR PRN Administration PAIN Polyethylene Glycol 17 gm 05/30/22 09:00 08/01/22 13:28 Polyethylene Glycol 3350 17 Gm Packet PO Not Given DAILY DOUGLAS Psyllium Hydrophilic Mucilloid 1 packet 06/21/22 08:53 07/11/22 12:37 Psyllium Packet PO 1 packet DAILY PRN Administration Constipation Senna 8.6 - 17.2 mg 07/04/22 17:00 08/01/22 13:29 Senna 8.6 Mg Tablet PO Not Given BID DOUGLAS - Lab Result Fish Bone Diagrams: 07/13/22 08:19 07/13/22 08:19 Subjective - Subjective Patient Reports: Other (Asleep, appears comfortable, awakens and speaks, appears weak.) Objective Vital Signs: Vital Signs - 24 hr 07/31/22 08/01/22 17:12 09:00 Temperature 36.3 C L 36.5 C Heart Rate [ 69 65 Brachial] Respiratory 16 16 Rate Blood Pressure 113/47 L 103/49 L [Right Brachial artery] O2 Saturation 94 93 Oxygen O2 Source Room air I&O (Last 24 Hrs): Intake and Output Totals x24h 07/30/22 07/31/22 08/01/22 23:59 23:59 23:59 Intake Total 1190 1165 480 Output Total 475 600 475 Balance 715 565 5 General: Other (Asleep, cachectic) HEENT: Mucous membr. moist/pink Neck: Supple Neuro: Alert, Other (Poor memory, [place]) Cardiovascular: Regular rate Respiratory: No respiratory distress Abdomen: Soft Extremities: No edema, No tenderness/swelling - Results Results: Laboratory Results WBC 8.4 x10^3/uL (4.8-10.8) 07/13/22 08:19 RBC 3.87 10^6/uL (4.70-6.10) L 07/13/22 08:19 Hgb 9.7 g/dL (14.0-18.0) L 07/13/22 08:19 Hct 32.7 % (42.0-52.0) L 07/13/22 08:19 MCV 84.5 fL (80.0-94.0) 07/13/22 08:19 MCH 25.1 pg (27.0-31.0) L 07/13/22 08:19 MCHC 29.7 g/dL (32.0-36.0) L 07/13/22 08:19 RDW 15.9 % (12.0-15.0) H 07/13/22 08:19 Plt Count 543 10^3/uL (130-450) H 07/13/22 08:19 MPV 8.6 fL (7.4-11.4) 07/13/22 08:19 Neut # (Auto) 5.7 10^3/uL (1.5-6.6) 07/13/22 08:19 Lymph # (Auto) 1.4 10^3/uL (1.5-3.5) L 07/13/22 08:19 [place] # (Auto) 1.0 10^3/uL (0.0-1.0) 07/13/22 08:19 Eos # (Auto) 0.1 10^3/uL (0.0-0.7) 07/13/22 08:19 Baso # (Auto) 0.1 10^3/uL (0.0-0.1) 07/13/22 08:19 Absolute Nucleated RBC 0.00 x10^3/uL 07/13/22 08:19 Nucleated RBC % 0.0 /100WBC 07/13/22 08:19 PT 13.8 secs (9.9-12.6) H 05/30/22 04:50 INR 1.3 (0.8-1.2) H 05/30/22 04:50 Sodium 133 mmol/L (135-145) L 07/13/22 08:19 Potassium 3.9 mmol/L (3.5-5.0) 07/13/22 08:19 Chloride 94 mmol/L (101-111) L 07/13/22 08:19 Carbon Dioxide 27 mmol/L (21-32) 07/13/22 08:19 Anion Gap 12.0 (6-13) 07/13/22 08:19 BUN 18 mg/dL (6-20) 07/13/22 08:19 Creatinine 0.8 mg/dL (0.6-1.2) 07/13/22 08:19 Estimated GFR (MDRD) 93 (>89) 07/13/22 08:19 Glucose 94 mg/dL (70-100) 07/13/22 08:19 Calcium 9.1 mg/dL (8.5-10.3) 07/13/22 08:19 Phosphorus 1.1 mg/dL (2.5-4.6) L 05/30/22 04:50 Magnesium 2.1 mg/dL (1.7-2.8) 06/07/22 05:01 Total Bilirubin 0.8 mg/dL (0.2-1.0) 05/29/22 06:20 AST 20 IU/L (10-42) 05/29/22 06:20 ALT 17 IU/L (10-60) 05/29/22 06:20 Alkaline Phosphatase 58 IU/L (42-121) 05/29/22 06:20 Total Creatine Kinase 87 IU/L (22-269) 05/28/22 11:50 Total Protein 6.4 g/dL (6.7-8.2) L 05/29/22 06:20 Albumin 2.5 g/dL (3.2-5.5) L 05/29/22 06:20 Globulin 3.9 g/dL (2.1-4.2) 05/29/22 06:20 Albumin/Globulin Ratio 0.6 (1.0-2.2) L 05/29/22 06:20 Lipase 35 U/L (22-51) 05/29/22 06:20 TSH 2.68 uIU/mL (0.34-5.60) 05/30/22 04:50 Urine Color DARK YELLOW 05/28/22 12:07 Urine Clarity CLEAR (CLEAR) 05/28/22 12:07 Urine pH 6.0 PH (5.0-7.5) 05/28/22 12:07 Ur Specific [place] 1.025 (1.002-1.030) 05/28/22 12:07 Urine Protein 30 mg/dL (NEGATIVE) H 05/28/22 12:07 Urine Glucose (UA) NEGATIVE mg/dL (NEGATIVE) 05/28/22 12:07 Urine Ketones 15 mg/dL (NEGATIVE) H 05/28/22 12:07 Urine Occult Blood LARGE (NEGATIVE) H 05/28/22 12:07 Urine Nitrite NEGATIVE (NEGATIVE) 05/28/22 12:07 Urine Bilirubin NEGATIVE (NEGATIVE) 05/28/22 12:07 Urine Urobilinogen 1 (NORMAL) E.U./dL (NORMAL) 05/28/22 12:07 Ur Leukocyte Esterase NEGATIVE (NEGATIVE) 05/28/22 12:07 Urine RBC TNTC /HPF (0-5) H 05/28/22 12:07 Urine WBC 6-10 /HPF (0-3) H 05/28/22 12:07 Ur Epithelial Cells MOD Transitional /HPF (<= Few) H 05/28/22 12:07 Ur Squamous Epith Cells FEW Squamous (<= Few) 05/28/22 12:07 Urine Bacteria Few /HPF (None Seen) 05/28/22 12:07 Urine Casts 6-10 Hyaline Casts /LPF 05/28/22 12:07 Ur Microscopic Review INDICATED 05/28/22 12:07 Urine Culture Comments NOT INDICATED 05/28/22 12:07 Coronavirus (PCR) NEGATIVE 05/29/22 14:20 - Procedures Procedures: Procedures ENDO RECTUM POLYPECTOMY (04/27/15) ENDOSC POLYPECTOMY OF LG INTEST (04/27/15) EXCISION OF ASCENDING COLON, ENDO, DIAGN (05/02/17) EXCISION OF DESCENDING COLON, ENDO, DIAGN (05/02/17) EXCISION OF LEFT LOWER LEG SKIN, EXTERNAL APPROACH, DIAGN (11/16/20) EXCISION OF TRANSVERSE COLON, ENDO, DIAGN (05/02/17)
[2022-08-01] MEDS ORDERED: METOCLOPRAMIDE 10 MG/2 ML VIAL IVP PRN (15:11)
[2022-08-01] MEDS: LIDOCAINE PATCH 5% TOP SCH (16:06)
[2022-08-01] MEDS: oxyCODONE 10 MG/0.5 ML SYRINGE PO SCH (16:24)
[2022-08-01] MEDS ORDERED: METOCLOPRAMIDE 10 MG TABLET PO PRN (16:46)
[2022-08-01] MEDS: dexAMETHasone 4 MG TABLET PO SCH (17:02)
[2022-08-01] MEDS: METHADONE 5 MG TABLET PO SCH (20:45)
[2022-08-02] MEDS: oxyCODONE 10 MG/0.5 ML SYRINGE PO SCH ×3 (08:21→17:13)
[2022-08-02] MEDS: METHADONE 5 MG TABLET PO SCH ×2 (09:02→20:54)
[2022-08-02] MEDS: DOCUSATE SODIUM 250 MG CAPSULE PO SCH ×2 (09:02→20:54)
[2022-08-02] MEDS: SENNA 8.6 MG TABLET PO SCH ×2 (09:02→20:54)
[2022-08-02] MEDS: dexAMETHasone 4 MG TABLET PO SCH ×2 (09:02→17:06)
[2022-08-02] MEDS: ENOXAPARIN 40 MG/0.4 ML SYRINGE SUBQ SCH (09:03)
[2022-08-02] MEDS: MULTIVITAMIN W/MINERALS TABLET PO SCH (09:03)
[2022-08-02] MEDS: polyethylene glycoL 3350 17 GM PACKET PO SCH (09:03)
--- NOTE | 2022-08-02 15:33 | PROVIDER PROGRESS NOTE ---
Assessment/Plan - Problem List (1) Metastatic lung cancer (metastasis from lung to other site) Qualifiers: Qualified Code(s): C34.90 - Malignant neoplasm of unspecified part of unspecified bronchus or lung Assessment/Plan: Focus has been on pain control since admission. He has a guardian now. The only thing left is some financial information that needs to be filed to get Medicaid so that he can be discharged to a facility. But that may not happen and that that information is not obtainable. His pain has increased and Morphine has been changed from 10 mg tid douglas, to 15 mg bid. This also makes him more sleepy and weaker. We ordered a Hospice Consult to give us any recommendations. The pt may qualify for GIP admission to Hospice for increasing narcotic pain med needs. 2) Cognitive impairment He was tested early in this admission and found to have no capacity for making decisions. Therefore the guardian needed to be assigned. 3) FTT His oral intake has decreased substantially. For this reason also, the Hospice consult ws also requested. - Current Meds Current Meds: Current Medications Generic Name Dose Route Start Last Admin Trade Name Freq PRN Reason Stop Dose Admin Acetaminophen 650 mg 05/29/22 14:15 08/01/22 11:31 Acetaminophen 325 Mg Tablet PO 650 mg Q4HR PRN Administration Pain 1 to 4, or Fever Dexamethasone 4 mg 08/01/22 17:00 08/02/22 09:02 Dexamethasone 4 Mg Tablet PO 08/04/22 00:01 4 mg BIDWM DOUGLAS Administration Docusate Sodium 250 - 500 mg 07/04/22 21:00 08/02/22 09:02 Docusate Sodium 250 Mg Capsule PO 250 mg BID DOUGLAS Administration Enoxaparin Sodium 40 mg 05/30/22 09:00 08/02/22 09:03 Enoxaparin 40 Mg/0.4 Ml Syringe SUBQ 40 mg DAILY DOUGLAS Administration Lidocaine 1 patch 08/01/22 16:00 08/01/22 16:06 Lidocaine Patch 5% TOP 1 patch 1600 DOUGLAS Administration Lorazepam 1 mg 07/13/22 18:33 07/19/22 00:06 Lorazepam 0.5 Mg Tablet SL 1 mg Q4H PRN Administration Anxiety Methadone HCl 2.5 mg 08/01/22 21:00 08/02/22 09:02 Methadone 5 Mg Tablet PO 2.5 mg BID DOUGLAS Administration Multi-Ingredient Ointment 1 applic 05/30/22 22:39 08/01/22 08:35 Zinc Oxide 20% Oint 30 Gm Tube TOP 1 applic PRN PRN Administration Skin Care Multivitamins/Minerals 1 tab 05/30/22 11:00 08/02/22 09:03 Multivitamin W/Minerals Tablet PO 1 tab DAILYWM DOUGLAS Administration Oxycodone HCl 5 mg 08/01/22 16:30 08/02/22 11:42 Oxycodone 10 Mg/0.5 Ml Syringe PO 5 mg 0730,1130,1630 DOUGLAS Administration Polyethylene Glycol 17 gm 05/30/22 09:00 08/02/22 09:03 Polyethylene Glycol 3350 17 Gm Packet PO 17 gm DAILY DOUGLAS Administration Psyllium Hydrophilic Mucilloid 1 packet 06/21/22 08:53 07/11/22 12:37 Psyllium Packet PO 1 packet DAILY PRN Administration Constipation Senna 8.6 - 17.2 mg 07/04/22 17:00 08/02/22 09:02 Senna 8.6 Mg Tablet PO 8.6 mg BID DOUGLAS Administration - Lab Result Fish Bone Diagrams: 07/13/22 08:19 07/13/22 08:19 - Additional Planning My Orders: My Active Orders 08/01/22 16:00 Lidocaine Patch 5% [Lidoderm Patch] 1 patch TOP 1600 08/01/22 16:30 oxyCODONE ORAL SOLN [Roxicodone Oral Soln] 5 mg PO 0730,1130,1630 08/01/22 16:46 Metoclopramide [Reglan] 10 mg PO Q6H PRN 08/01/22 17:00 dexAMETHasone [Decadron] 4 mg PO BIDWM 08/01/22 21:00 Methadone [Methadone Hcl] 2.5 mg PO BID 08/04/22 08:00 dexAMETHasone [Decadron] 4 mg PO DAILYWM Subjective - Subjective Patient Reports: Resting Comfortably, No Complaints Objective Vital Signs: Vital Signs - 24 hr 08/01/22 08/02/22 16:07 11:54 Temperature 36.7 C 36.6 C Heart Rate [ 61 64 Brachial] Respiratory 16 18 Rate Blood Pressure 104/47 L 106/56 L [Right Brachial artery] O2 Saturation 94 95 Oxygen O2 Source Room air I&O (Last 24 Hrs): Intake and Output Totals x24h 07/31/22 08/01/22 08/02/22 23:59 23:59 23:59 Intake Total 1165 1040 440 Output Total 600 475 550 Balance 565 565 -110 General: Other (Asleep. Cachectic.) HEENT: Mucous membr. moist/pink Neuro: Non Focal Cardiovascular: Regular rate Respiratory: No respiratory distress Abdomen: Soft Extremities: No edema - Results Results: Laboratory Results WBC 8.4 x10^3/uL (4.8-10.8) 07/13/22 08:19 RBC 3.87 10^6/uL (4.70-6.10) L 07/13/22 08:19 Hgb 9.7 g/dL (14.0-18.0) L 07/13/22 08:19 Hct 32.7 % (42.0-52.0) L 07/13/22 08:19 MCV 84.5 fL (80.0-94.0) 07/13/22 08:19 MCH 25.1 pg (27.0-31.0) L 07/13/22 08:19 MCHC 29.7 g/dL (32.0-36.0) L 07/13/22 08:19 RDW 15.9 % (12.0-15.0) H 07/13/22 08:19 Plt Count 543 10^3/uL (130-450) H 07/13/22 08:19 MPV 8.6 fL (7.4-11.4) 07/13/22 08:19 Neut # (Auto) 5.7 10^3/uL (1.5-6.6) 07/13/22 08:19 Lymph # (Auto) 1.4 10^3/uL (1.5-3.5) L 07/13/22 08:19 [place] # (Auto) 1.0 10^3/uL (0.0-1.0) 07/13/22 08:19 Eos # (Auto) 0.1 10^3/uL (0.0-0.7) 07/13/22 08:19 Baso # (Auto) 0.1 10^3/uL (0.0-0.1) 07/13/22 08:19 Absolute Nucleated RBC 0.00 x10^3/uL 07/13/22 08:19 Nucleated RBC % 0.0 /100WBC 07/13/22 08:19 PT 13.8 secs (9.9-12.6) H 05/30/22 04:50 INR 1.3 (0.8-1.2) H 05/30/22 04:50 Sodium 133 mmol/L (135-145) L 07/13/22 08:19 Potassium 3.9 mmol/L (3.5-5.0) 07/13/22 08:19 Chloride 94 mmol/L (101-111) L 07/13/22 08:19 Carbon Dioxide 27 mmol/L (21-32) 07/13/22 08:19 Anion Gap 12.0 (6-13) 07/13/22 08:19 BUN 18 mg/dL (6-20) 07/13/22 08:19 Creatinine 0.8 mg/dL (0.6-1.2) 07/13/22 08:19 Estimated GFR (MDRD) 93 (>89) 07/13/22 08:19 Glucose 94 mg/dL (70-100) 07/13/22 08:19 Calcium 9.1 mg/dL (8.5-10.3) 07/13/22 08:19 Phosphorus 1.1 mg/dL (2.5-4.6) L 05/30/22 04:50 Magnesium 2.1 mg/dL (1.7-2.8) 06/07/22 05:01 Total Bilirubin 0.8 mg/dL (0.2-1.0) 05/29/22 06:20 AST 20 IU/L (10-42) 05/29/22 06:20 ALT 17 IU/L (10-60) 05/29/22 06:20 Alkaline Phosphatase 58 IU/L (42-121) 05/29/22 06:20 Total Creatine Kinase 87 IU/L (22-269) 05/28/22 11:50 Total Protein 6.4 g/dL (6.7-8.2) L 05/29/22 06:20 Albumin 2.5 g/dL (3.2-5.5) L 05/29/22 06:20 Globulin 3.9 g/dL (2.1-4.2) 05/29/22 06:20 Albumin/Globulin Ratio 0.6 (1.0-2.2) L 05/29/22 06:20 Lipase 35 U/L (22-51) 05/29/22 06:20 TSH 2.68 uIU/mL (0.34-5.60) 05/30/22 04:50 Urine Color DARK YELLOW 05/28/22 12:07 Urine Clarity CLEAR (CLEAR) 05/28/22 12:07 Urine pH 6.0 PH (5.0-7.5) 05/28/22 12:07 Ur Specific [place] 1.025 (1.002-1.030) 05/28/22 12:07 Urine Protein 30 mg/dL (NEGATIVE) H 05/28/22 12:07 Urine Glucose (UA) NEGATIVE mg/dL (NEGATIVE) 05/28/22 12:07 Urine Ketones 15 mg/dL (NEGATIVE) H 05/28/22 12:07 Urine Occult Blood LARGE (NEGATIVE) H 05/28/22 12:07 Urine Nitrite NEGATIVE (NEGATIVE) 05/28/22 12:07 Urine Bilirubin NEGATIVE (NEGATIVE) 05/28/22 12:07 Urine Urobilinogen 1 (NORMAL) E.U./dL (NORMAL) 05/28/22 12:07 Ur Leukocyte Esterase NEGATIVE (NEGATIVE) 05/28/22 12:07 Urine RBC TNTC /HPF (0-5) H 05/28/22 12:07 Urine WBC 6-10 /HPF (0-3) H 05/28/22 12:07 Ur Epithelial Cells MOD Transitional /HPF (<= Few) H 05/28/22 12:07 Ur Squamous Epith Cells FEW Squamous (<= Few) 05/28/22 12:07 Urine Bacteria Few /HPF (None Seen) 05/28/22 12:07 Urine Casts 6-10 Hyaline Casts /LPF 05/28/22 12:07 Ur Microscopic Review INDICATED 05/28/22 12:07 Urine Culture Comments NOT INDICATED 05/28/22 12:07 Coronavirus (PCR) NEGATIVE 05/29/22 14:20 - Procedures Procedures: Procedures ENDO RECTUM POLYPECTOMY (04/27/15) ENDOSC POLYPECTOMY OF LG INTEST (04/27/15) EXCISION OF ASCENDING COLON, ENDO, DIAGN (05/02/17) EXCISION OF DESCENDING COLON, ENDO, DIAGN (05/02/17) EXCISION OF LEFT LOWER LEG SKIN, EXTERNAL APPROACH, DIAGN (11/16/20) EXCISION OF TRANSVERSE COLON, ENDO, DIAGN (05/02/17)
--- NOTE | 2022-08-02 15:37 | PROVIDER PROGRESS NOTE ---
Assessment/Plan - Problem List (1) Metastatic lung cancer (metastasis from lung to other site) Qualifiers: Qualified Code(s): C34.90 - Malignant neoplasm of unspecified part of unspecified bronchus or lung Assessment/Plan: Focus has been on pain control since admission. His pain has slowly increased and Morphine has been changed from 10 mg tid douglas, to 15 mg bid. This also made him more sleepy and weaker. A Hospice Consult gave recommendations. We adjusted the pain meds as recommended by Dr. Singh: Stopped the extended release morphine twice daily and start methadone 2.5 mg twice daily (better for neuropathic and bone pain). However his pain is worse today 08/02, so will add some Morphine back. Stopped the as needed oxycodone and schedule it 3 times daily before meals so that he can sit up. Added an order for Lidoderm patch to his axilla/chest for topical pain relief. Added dexamethasone 4 mg twice daily for 3 days then decrease to 4 mg daily, for relief of bone pain and for appetite stimulation. Since using Zofran IV, ordered prn, with methadone can increase his QT interval, we stopped the as needed Zofran and order as needed Reglan IV. 2) Cognitive impairment He was tested early in this admission and found to have no capacity for making decisions. Therefore the guardian was needed to be assigned. He has a guardian now. The only thing left is some financial information that needs to be completed so that he can be discharged to a facility. 3) FTT His oral intake has decreased substantially. For this reason also, the Hospice consult was requested. Dexamethasone for appetite stimulation will be ordered, as in #1. - Current Meds Current Meds: Current Medications Generic Name Dose Route Start Last Admin Trade Name Freq PRN Reason Stop Dose Admin Acetaminophen 650 mg 05/29/22 14:15 08/01/22 11:31 Acetaminophen 325 Mg Tablet PO 650 mg Q4HR PRN Administration Pain 1 to 4, or Fever Dexamethasone 4 mg 08/01/22 17:00 08/02/22 09:02 Dexamethasone 4 Mg Tablet PO 08/04/22 00:01 4 mg BIDWM DOUGLAS Administration Docusate Sodium 250 - 500 mg 07/04/22 21:00 08/02/22 09:02 Docusate Sodium 250 Mg Capsule PO 250 mg BID DOUGLAS Administration Enoxaparin Sodium 40 mg 05/30/22 09:00 08/02/22 09:03 Enoxaparin 40 Mg/0.4 Ml Syringe SUBQ 40 mg DAILY DOUGLAS Administration Lidocaine 1 patch 08/01/22 16:00 08/01/22 16:06 Lidocaine Patch 5% TOP 1 patch 1600 DOUGLAS Administration Lorazepam 1 mg 07/13/22 18:33 07/19/22 00:06 Lorazepam 0.5 Mg Tablet SL 1 mg Q4H PRN Administration Anxiety Methadone HCl 2.5 mg 08/01/22 21:00 08/02/22 09:02 Methadone 5 Mg Tablet PO 2.5 mg BID DOUGLAS Administration Multi-Ingredient Ointment 1 applic 05/30/22 22:39 08/01/22 08:35 Zinc Oxide 20% Oint 30 Gm Tube TOP 1 applic PRN PRN Administration Skin Care Multivitamins/Minerals 1 tab 05/30/22 11:00 08/02/22 09:03 Multivitamin W/Minerals Tablet PO 1 tab DAILYWM DOUGLAS Administration Oxycodone HCl 5 mg 08/01/22 16:30 08/02/22 11:42 Oxycodone 10 Mg/0.5 Ml Syringe PO 5 mg 0730,1130,1630 DOUGLAS Administration Polyethylene Glycol 17 gm 05/30/22 09:00 08/02/22 09:03 Polyethylene Glycol 3350 17 Gm Packet PO 17 gm DAILY DOUGLAS Administration Psyllium Hydrophilic Mucilloid 1 packet 06/21/22 08:53 07/11/22 12:37 Psyllium Packet PO 1 packet DAILY PRN Administration Constipation Senna 8.6 - 17.2 mg 07/04/22 17:00 08/02/22 09:02 Senna 8.6 Mg Tablet PO 8.6 mg BID DOUGLAS Administration - Lab Result Fish Bone Diagrams: 07/13/22 08:19 07/13/22 08:19 - Additional Planning My Orders: My Active Orders 08/01/22 16:00 Lidocaine Patch 5% [Lidoderm Patch] 1 patch TOP 1600 08/01/22 16:30 oxyCODONE ORAL SOLN [Roxicodone Oral Soln] 5 mg PO 0730,1130,1630 08/01/22 16:46 Metoclopramide [Reglan] 10 mg PO Q6H PRN 08/01/22 17:00 dexAMETHasone [Decadron] 4 mg PO BIDWM 08/01/22 21:00 Methadone [Methadone Hcl] 2.5 mg PO BID 08/04/22 08:00 dexAMETHasone [Decadron] 4 mg PO DAILYWM Subjective - Subjective Patient Reports: Pain (Worse pain (since changes made yesterday)) Objective Vital Signs: Vital Signs - 24 hr 08/01/22 08/02/22 16:07 11:54 Temperature 36.7 C 36.6 C Heart Rate [ 61 64 Brachial] Respiratory 16 18 Rate Blood Pressure 104/47 L 106/56 L [Right Brachial artery] O2 Saturation 94 95 Oxygen O2 Source Room air I&O (Last 24 Hrs): Intake and Output Totals x24h 07/31/22 08/01/22 08/02/22 23:59 23:59 23:59 Intake Total 1165 1040 440 Output Total 600 475 550 Balance 565 565 -110 General: Other (Asleep) HEENT: Mucous membr. moist/pink Neck: Supple Neuro: Alert (when awake) Respiratory: No respiratory distress Abdomen: Soft Extremities: No edema - Results Results: Laboratory Results WBC 8.4 x10^3/uL (4.8-10.8) 07/13/22 08:19 RBC 3.87 10^6/uL (4.70-6.10) L 07/13/22 08:19 Hgb 9.7 g/dL (14.0-18.0) L 07/13/22 08:19 Hct 32.7 % (42.0-52.0) L 07/13/22 08:19 MCV 84.5 fL (80.0-94.0) 07/13/22 08:19 MCH 25.1 pg (27.0-31.0) L 07/13/22 08:19 MCHC 29.7 g/dL (32.0-36.0) L 07/13/22 08:19 RDW 15.9 % (12.0-15.0) H 07/13/22 08:19 Plt Count 543 10^3/uL (130-450) H 07/13/22 08:19 MPV 8.6 fL (7.4-11.4) 07/13/22 08:19 Neut # (Auto) 5.7 10^3/uL (1.5-6.6) 07/13/22 08:19 Lymph # (Auto) 1.4 10^3/uL (1.5-3.5) L 07/13/22 08:19 [place] # (Auto) 1.0 10^3/uL (0.0-1.0) 07/13/22 08:19 Eos # (Auto) 0.1 10^3/uL (0.0-0.7) 07/13/22 08:19 Baso # (Auto) 0.1 10^3/uL (0.0-0.1) 07/13/22 08:19 Absolute Nucleated RBC 0.00 x10^3/uL 07/13/22 08:19 Nucleated RBC % 0.0 /100WBC 07/13/22 08:19 PT 13.8 secs (9.9-12.6) H 05/30/22 04:50 INR 1.3 (0.8-1.2) H 05/30/22 04:50 Sodium 133 mmol/L (135-145) L 07/13/22 08:19 Potassium 3.9 mmol/L (3.5-5.0) 07/13/22 08:19 Chloride 94 mmol/L (101-111) L 07/13/22 08:19 Carbon Dioxide 27 mmol/L (21-32) 07/13/22 08:19 Anion Gap 12.0 (6-13) 07/13/22 08:19 BUN 18 mg/dL (6-20) 07/13/22 08:19 Creatinine 0.8 mg/dL (0.6-1.2) 07/13/22 08:19 Estimated GFR (MDRD) 93 (>89) 07/13/22 08:19 Glucose 94 mg/dL (70-100) 07/13/22 08:19 Calcium 9.1 mg/dL (8.5-10.3) 07/13/22 08:19 Phosphorus 1.1 mg/dL (2.5-4.6) L 05/30/22 04:50 Magnesium 2.1 mg/dL (1.7-2.8) 06/07/22 05:01 Total Bilirubin 0.8 mg/dL (0.2-1.0) 05/29/22 06:20 AST 20 IU/L (10-42) 05/29/22 06:20 ALT 17 IU/L (10-60) 05/29/22 06:20 Alkaline Phosphatase 58 IU/L (42-121) 05/29/22 06:20 Total Creatine Kinase 87 IU/L (22-269) 05/28/22 11:50 Total Protein 6.4 g/dL (6.7-8.2) L 05/29/22 06:20 Albumin 2.5 g/dL (3.2-5.5) L 05/29/22 06:20 Globulin 3.9 g/dL (2.1-4.2) 05/29/22 06:20 Albumin/Globulin Ratio 0.6 (1.0-2.2) L 05/29/22 06:20 Lipase 35 U/L (22-51) 05/29/22 06:20 TSH 2.68 uIU/mL (0.34-5.60) 05/30/22 04:50 Urine Color DARK YELLOW 05/28/22 12:07 Urine Clarity CLEAR (CLEAR) 05/28/22 12:07 Urine pH 6.0 PH (5.0-7.5) 05/28/22 12:07 Ur Specific [place] 1.025 (1.002-1.030) 05/28/22 12:07 Urine Protein 30 mg/dL (NEGATIVE) H 05/28/22 12:07 Urine Glucose (UA) NEGATIVE mg/dL (NEGATIVE) 05/28/22 12:07 Urine Ketones 15 mg/dL (NEGATIVE) H 05/28/22 12:07 Urine Occult Blood LARGE (NEGATIVE) H 05/28/22 12:07 Urine Nitrite NEGATIVE (NEGATIVE) 05/28/22 12:07 Urine Bilirubin NEGATIVE (NEGATIVE) 05/28/22 12:07 Urine Urobilinogen 1 (NORMAL) E.U./dL (NORMAL) 05/28/22 12:07 Ur Leukocyte Esterase NEGATIVE (NEGATIVE) 05/28/22 12:07 Urine RBC TNTC /HPF (0-5) H 05/28/22 12:07 Urine WBC 6-10 /HPF (0-3) H 05/28/22 12:07 Ur Epithelial Cells MOD Transitional /HPF (<= Few) H 05/28/22 12:07 Ur Squamous Epith Cells FEW Squamous (<= Few) 05/28/22 12:07 Urine Bacteria Few /HPF (None Seen) 05/28/22 12:07 Urine Casts 6-10 Hyaline Casts /LPF 05/28/22 12:07 Ur Microscopic Review INDICATED 05/28/22 12:07 Urine Culture Comments NOT INDICATED 05/28/22 12:07 Coronavirus (PCR) NEGATIVE 05/29/22 14:20 - Procedures Procedures: Procedures ENDO RECTUM POLYPECTOMY (04/27/15) ENDOSC POLYPECTOMY OF LG INTEST (04/27/15) EXCISION OF ASCENDING COLON, ENDO, DIAGN (05/02/17) EXCISION OF DESCENDING COLON, ENDO, DIAGN (05/02/17) EXCISION OF LEFT LOWER LEG SKIN, EXTERNAL APPROACH, DIAGN (11/16/20) EXCISION OF TRANSVERSE COLON, ENDO, DIAGN (05/02/17)
[2022-08-02] MEDS ORDERED: MORPHINE ER 15 MG TABLET PO SCH (15:38)
[2022-08-02] MEDS ORDERED: MORPHINE IR 15 MG TABLET PO PRN (17:48)
[2022-08-02] MEDS: LIDOCAINE PATCH 5% TOP SCH (18:51)
[2022-08-03] MEDS: oxyCODONE 10 MG/0.5 ML SYRINGE PO SCH ×4 (06:47→21:01)
[2022-08-03] MEDS: MORPHINE IR 15 MG TABLET PO PRN (07:44)
[2022-08-03] MEDS: DOCUSATE SODIUM 250 MG CAPSULE PO SCH ×2 (08:44→21:00)
[2022-08-03] MEDS: SENNA 8.6 MG TABLET PO SCH ×2 (08:44→21:00)
[2022-08-03] MEDS: polyethylene glycoL 3350 17 GM PACKET PO SCH (08:44)
[2022-08-03] MEDS: ENOXAPARIN 40 MG/0.4 ML SYRINGE SUBQ SCH (08:45)
[2022-08-03] MEDS: MULTIVITAMIN W/MINERALS TABLET PO SCH (08:45)
[2022-08-03] MEDS: dexAMETHasone 4 MG TABLET PO SCH ×2 (08:45→17:02)
[2022-08-03] MEDS: METHADONE 5 MG TABLET PO SCH (08:45)
--- NOTE | 2022-08-03 15:19 | PROVIDER PROGRESS NOTE ---
Subjective - Prog Note Date Prog Note Date: 08/03/22 Prog Note Time: 15:17 - Subjective Subjective: We obtained a hospice consult on the to see this patient qualified for the [facility] service for symptom management. He did not. And the hospice [facility] [place] thoughtfully adjusted his medications on the basis of his diagnosis. It has been a few days now since he has been on methadone 2.5 twice daily. Patient tells me he is miserable. The pain is is almost as bad as it was when he first came in. It is located in the right axilla. Prior to that he was on MS Contin twice daily and oxycodone for breakthrough pain. Currently he is on Decadron 4 mg twice daily since the . He is going to be tapered. Lidoderm patch since the . Morphine sulfate immediate release for severe pain and he received 1 dose today. Oxycodone 5 mg oral solution was 1 dose on the . 3 doses on the . And 2 doses today. Current Medications - Current Medications Current Medications: Active Medications Acetaminophen (Acetaminophen 325 Mg Tablet) 650 mg PO Q4HR PRN PRN Reason: Pain 1 to 4, or Fever Last Admin: 08/01/22 11:31 Dose: 650 mg Dexamethasone (Dexamethasone 4 Mg Tablet) 4 mg PO BIDWM [facility] Stop: 08/04/22 00:01 Last Admin: 08/03/22 08:45 Dose: 4 mg Dexamethasone (Dexamethasone 4 Mg Tablet) 4 mg PO DAILYWM [facility] Docusate Sodium (Docusate Sodium 250 Mg Capsule) 250 - 500 mg PO BID [facility] Last Admin: 08/03/22 08:44 Dose: 250 mg Enoxaparin Sodium (Enoxaparin 40 Mg/0.4 Ml Syringe) 40 mg SUBQ DAILY [facility] Last Admin: 08/03/22 08:45 Dose: 40 mg Lidocaine (Lidocaine Patch 5%) 1 patch TOP 1600 [facility] Last Admin: 08/02/22 18:51 Dose: 1 patch Lorazepam (Lorazepam 0.5 Mg Tablet) 1 mg SL Q4H PRN PRN Reason: Anxiety Last Admin: 07/19/22 00:06 Dose: 1 mg Metoclopramide HCl (Metoclopramide 10 Mg Tablet) 10 mg PO Q6H PRN PRN Reason: Nausea / Vomiting Morphine Sulfate (Morphine Ir 15 Mg Tablet) 7.5 mg PO Q12H PRN PRN Reason: Severe Pain Last Admin: 08/03/22 07:44 Dose: 7.5 mg Morphine Sulfate (Morphine Er 15 Mg Tablet) 15 mg PO BID [facility] Stop: 08/04/22 21:01 Multi-Ingredient Ointment (Zinc Oxide 20% Oint 30 Gm Tube) 1 applic TOP PRN PRN PRN Reason: Skin Care Last Admin: 08/01/22 08:35 Dose: 1 applic Multivitamins/Minerals (Multivitamin W/Minerals Tablet) 1 tab PO DAILYWM [facility] Last Admin: 08/03/22 08:45 Dose: 1 tab Oxycodone HCl (Oxycodone 10 Mg/0.5 Ml Syringe) 5 mg PO 0730,1130,1630 [facility] Last Admin: 08/03/22 11:06 Dose: 5 mg Polyethylene Glycol (Polyethylene Glycol 3350 17 Gm Packet) 17 gm PO DAILY [facility] Last Admin: 08/03/22 08:44 Dose: 17 gm Psyllium Hydrophilic Mucilloid (Psyllium Packet) 1 packet PO DAILY PRN PRN Reason: Constipation Last Admin: 07/11/22 12:37 Dose: 1 packet Senna (Senna 8.6 Mg Tablet) 8.6 - 17.2 mg PO BID [facility] Last Admin: 08/03/22 08:44 Dose: 8.6 mg No Known Home Medications 05/30/22 Objective - Vital Signs/Intake & Output Reviewed Vital Signs: Yes Vital Signs: Vital Signs x48h Temp Pulse Resp BP Pulse Ox 08/03/22 07:53 36.2 C L 54 L 18 125/47 L 98 Intake & Output: Intake & Output 07/31/22 08/01/22 08/02/22 08/03/22 23:59 23:59 23:59 23:59 Intake Total 1165 5328 650 8038 Output Total 061 236 7884 500 Balance 565 565 -570 690 - Objective General Appearance: positive: Alert, Other (Cachectic elderly gentleman. Furrowed brow, wincing. Really does not want to move at all.) Eyes Bilateral: positive: PERRL, EOMI ENT: positive: No signs of dehydration Neck: positive: No JVD. negative: Stiff neck Respiratory: positive: No respiratory distress. 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 Even though he has dementia, he has been consistent on stating that he does not want treatment and would never want treatment. His pain had slowly increased and Morphine IR has been changed from 10 mg tid douglas, to MS contine 15 mg bid. This also made him more sleepy and weaker. A Hospice Consult gave recommendations 07/30. We adjusted the pain meds as recommended by Dr. Singh on 08/01: Stopped the extended release morphine twice daily and start methadone 2.5 mg twice daily (better for neuropathic and bone pain). However his pain was worse 08/02, so will add some Morphine back. Stopped the as needed oxycodone and schedule it 3 times daily before meals so that he can sit up. 08/02 Added an order for Lidoderm patch to his axilla/chest for topical pain relief. Added dexamethasone 4 mg twice daily for 3 days then decrease to 4 mg daily, for relief of bone pain and for appetite stimulation. Since using Zofran IV, ordered prn, with methadone can increase his QT interval, we stopped the as needed Zofran and order as needed Reglan IV. I have recontacted the hospice nurse client application support engineer today. We discussed the case. It takes up to 4 5 days for methadone to really take effect. As such we cannot increase it to 5 mg twice daily or 2.5 3 times daily until August 04 or so. I initially thought to go back on the MS Contin but will instead order oxycodone 4 times daily until the methadone 2.5 mg p.o. twice daily kicks in 2) Cognitive impairment He was tested early in this admission and found to have no capacity for making decisions. Therefore the guardian was needed to be assigned. He has a guardian now. The only thing left is some financial information that needs to be completed so that he can be discharged to a facility. 3) FTT His oral intake has decreased substantially. For this reason also, the Hospice consult was requested. Dexamethasone for appetite stimulation will be ordered, as in #1.
[2022-08-03] MEDS: LIDOCAINE PATCH 5% TOP SCH (17:02)
[2022-08-03] MEDS ORDERED: MORPHINE ER 15 MG TABLET PO SCH (21:00)
[2022-08-03] MEDS ORDERED: METHADONE 5 MG TABLET PO SCH (22:00)
[2022-08-04] MEDS: MULTIVITAMIN W/MINERALS TABLET PO SCH (08:15)
[2022-08-04] MEDS: ENOXAPARIN 40 MG/0.4 ML SYRINGE SUBQ SCH (08:15)
[2022-08-04] MEDS: dexAMETHasone 4 MG TABLET PO SCH (08:15)
[2022-08-04] MEDS: oxyCODONE 10 MG/0.5 ML SYRINGE PO PRN ×5 (08:15→23:42)
[2022-08-04] MEDS: SENNA 8.6 MG TABLET PO SCH ×2 (08:16→21:16)
[2022-08-04] MEDS: polyethylene glycoL 3350 17 GM PACKET PO SCH (08:16)
[2022-08-04] MEDS: DOCUSATE SODIUM 250 MG CAPSULE PO SCH ×2 (08:16→21:16)
[2022-08-04] MEDS: oxyCODONE 10 MG/0.5 ML SYRINGE PO SCH ×4 (08:36→21:17)
[2022-08-04] MEDS: MORPHINE IR 15 MG TABLET PO PRN (09:07)
--- NOTE | 2022-08-04 13:08 | PROVIDER PROGRESS NOTE ---
Subjective - Prog Note Date Prog Note Date: 08/04/22 Prog Note Time: 13:06 - Subjective Pt reports feeling: Worse Subjective: He has been in increased pain over the last day, this morning complaining of 14/10 pain in his back and right axilla. Current Medications - Current Medications Current Medications: Active Medications Acetaminophen (Acetaminophen 325 Mg Tablet) 650 mg PO Q4HR PRN PRN Reason: Pain 1 to 4, or Fever Last Admin: 08/01/22 11:31 Dose: 650 mg Dexamethasone (Dexamethasone 4 Mg Tablet) 4 mg PO DAILYWM [facility] Last Admin: 08/04/22 08:15 Dose: 4 mg Docusate Sodium (Docusate Sodium 250 Mg Capsule) 250 - 500 mg PO BID [facility] Last Admin: 08/04/22 08:16 Dose: Not Given Enoxaparin Sodium (Enoxaparin 40 Mg/0.4 Ml Syringe) 40 mg SUBQ DAILY [facility] Last Admin: 08/04/22 08:15 Dose: 40 mg Lidocaine (Lidocaine Patch 5%) 1 patch TOP 1600 [facility] Last Admin: 08/03/22 17:02 Dose: 1 patch Lorazepam (Lorazepam 0.5 Mg Tablet) 1 mg SL Q4H PRN PRN Reason: Anxiety Last Admin: 07/19/22 00:06 Dose: 1 mg Metoclopramide HCl (Metoclopramide 10 Mg Tablet) 10 mg PO Q6H PRN PRN Reason: Nausea / Vomiting Morphine Sulfate (Morphine Ir 15 Mg Tablet) 7.5 mg PO Q12H PRN PRN Reason: Severe Pain Last Admin: 08/04/22 09:07 Dose: 7.5 mg Multi-Ingredient Ointment (Zinc Oxide 20% Oint 30 Gm Tube) 1 applic TOP PRN PRN PRN Reason: Skin Care Last Admin: 08/01/22 08:35 Dose: 1 applic Multivitamins/Minerals (Multivitamin W/Minerals Tablet) 1 tab PO DAILYWM [facility] Last Admin: 08/04/22 08:15 Dose: 1 tab Oxycodone HCl (Oxycodone 10 Mg/0.5 Ml Syringe) 5 mg PO QID [facility] Last Admin: 08/04/22 08:36 Dose: Not Given Oxycodone HCl (Oxycodone 10 Mg/0.5 Ml Syringe) 10 mg PO Q4HR PRN PRN Reason: PAIN Last Admin: 08/04/22 08:15 Dose: 10 mg Polyethylene Glycol (Polyethylene Glycol 3350 17 Gm Packet) 17 gm PO DAILY [facility] Last Admin: 08/04/22 08:16 Dose: Not Given Psyllium Hydrophilic Mucilloid (Psyllium Packet) 1 packet PO DAILY PRN PRN Reason: Constipation Last Admin: 07/11/22 12:37 Dose: 1 packet Senna (Senna 8.6 Mg Tablet) 8.6 - 17.2 mg PO BID [facility] Last Admin: 08/04/22 08:16 Dose: Not Given No Known Home Medications 05/30/22 Objective - Vital Signs/Intake & Output Reviewed Vital Signs: Yes Vital Signs: Vital Signs x48h Temp Pulse Resp BP Pulse Ox 08/04/22 08:10 36.2 C L 62 20 138/57 H 98 Intake & Output: Intake & Output 08/01/22 08/02/22 08/03/22 08/04/22 23:59 23:59 23:59 23:59 Intake Total 8985 917 1128 1067 Output Total 475 1250 900 500 Balance 565 -570 290 567 - Objective General Appearance: positive: Alert, Other (cachectic elderly man, wincing. Pain with any movemement.) Eyes Bilateral: positive: Normal inspection, PERRL, EOMI ENT: positive: No signs of dehydration Neck: positive: Nml inspection, No JVD. negative: Stiff neck Respiratory: positive: No respiratory distress. 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 Even though he has dementia, he has been consistent on stating that he does not want treatment and would never want treatment. His pain has increased with the recent changes of his pain control. He reports a 14/10 pain this morning. Oxycodone was administered at 8am and didn't help his pain at all. An hour later MS 7.5mg was administered and he was able to fall asleep after that. Increase his Oxycodone to 10mg PO Q4HR PRN and continue Morphine sulfate IR 7.5mg PO q12HR PRN until the methadone can be increased safely. Continue Lidoderm patch to his axilla/chest for topical pain relief. Continue dexamethasone 4 mg twice daily for 2 days then decrease to 4 mg daily, for relief of bone pain and for appetite stimulation. Since using Zofran IV, ordered prn, with methadone can increase his QT interval, we stopped the as needed Zofran and order as needed Reglan IV. Increase methadone to 2.5 TID or 5mg BID tomorrow 2) Cognitive impairment He was tested early in this admission and found to have no capacity for making decisions. Therefore the guardian was needed to be assigned. He has a guardian now. The only thing left is some financial information that needs to be completed so that he can be discharged to a facility. 3) FTT His oral intake has decreased substantially. For this reason also, the Hospice consult was requested. Dexamethasone for appetite stimulation will be ordered, as in #1.
[2022-08-04] MEDS: LIDOCAINE PATCH 5% TOP SCH (15:58)
[2022-08-04] MEDS: ACETAMINOPHEN 325 MG TABLET PO PRN (17:25)
[2022-08-04] MEDS: METHADONE 5 MG TABLET PO SCH ×2 (18:01→22:20)
[2022-08-05] MEDS: METHADONE 5 MG TABLET PO SCH ×3 (06:14→21:44)
[2022-08-05] MEDS: ENOXAPARIN 40 MG/0.4 ML SYRINGE SUBQ SCH (08:48)
[2022-08-05] MEDS: oxyCODONE 10 MG/0.5 ML SYRINGE PO SCH ×4 (08:49→21:06)
[2022-08-05] MEDS: dexAMETHasone 4 MG TABLET PO SCH (08:49)
[2022-08-05] MEDS: MULTIVITAMIN W/MINERALS TABLET PO SCH (08:49)
[2022-08-05] MEDS: polyethylene glycoL 3350 17 GM PACKET PO SCH (08:49)
[2022-08-05] MEDS: SENNA 8.6 MG TABLET PO SCH ×2 (08:50→21:05)
[2022-08-05] MEDS: DOCUSATE SODIUM 250 MG CAPSULE PO SCH ×2 (08:50→21:05)
[2022-08-05] MEDS: MORPHINE IR 15 MG TABLET PO PRN (08:57)
[2022-08-05] MEDS: oxyCODONE 10 MG/0.5 ML SYRINGE PO PRN (11:15)
--- NOTE | 2022-08-05 11:36 | PROVIDER PROGRESS NOTE ---
Subjective - Prog Note Date Prog Note Date: 08/05/22 Prog Note Time: 11:34 - Subjective Pt reports feeling: Improved Current Medications - Current Medications Current Medications: Active Medications Acetaminophen (Acetaminophen 325 Mg Tablet) 650 mg PO Q4HR PRN PRN Reason: Pain 1 to 4, or Fever Last Admin: 08/04/22 17:25 Dose: 650 mg Dexamethasone (Dexamethasone 4 Mg Tablet) 4 mg PO DAILYWM [facility] Last Admin: 08/05/22 08:49 Dose: 4 mg Docusate Sodium (Docusate Sodium 250 Mg Capsule) 250 - 500 mg PO BID [facility] Last Admin: 08/05/22 08:50 Dose: Not Given Enoxaparin Sodium (Enoxaparin 40 Mg/0.4 Ml Syringe) 40 mg SUBQ DAILY [facility] Last Admin: 08/05/22 08:48 Dose: 40 mg Lidocaine (Lidocaine Patch 5%) 1 patch TOP 1600 [facility] Last Admin: 08/04/22 15:58 Dose: 1 patch Lorazepam (Lorazepam 0.5 Mg Tablet) 1 mg SL Q4H PRN PRN Reason: Anxiety Last Admin: 07/19/22 00:06 Dose: 1 mg Methadone HCl (Methadone 5 Mg Tablet) 2.5 mg PO TID [facility] Last Admin: 08/05/22 06:14 Dose: 2.5 mg Metoclopramide HCl (Metoclopramide 10 Mg Tablet) 10 mg PO Q6H PRN PRN Reason: Nausea / Vomiting Morphine Sulfate (Morphine Ir 15 Mg Tablet) 7.5 mg PO Q12H PRN PRN Reason: Severe Pain Last Admin: 08/05/22 08:57 Dose: 7.5 mg Multi-Ingredient Ointment (Zinc Oxide 20% Oint 30 Gm Tube) 1 applic TOP PRN PRN PRN Reason: Skin Care Last Admin: 08/01/22 08:35 Dose: 1 applic Multivitamins/Minerals (Multivitamin W/Minerals Tablet) 1 tab PO DAILYWM [facility] Last Admin: 08/05/22 08:49 Dose: 1 tab Oxycodone HCl (Oxycodone 10 Mg/0.5 Ml Syringe) 5 mg PO QID [facility] Last Admin: 08/05/22 08:49 Dose: 5 mg Oxycodone HCl (Oxycodone 10 Mg/0.5 Ml Syringe) 10 mg PO Q4HR PRN PRN Reason: PAIN Last Admin: 08/05/22 11:15 Dose: 10 mg Polyethylene Glycol (Polyethylene Glycol 3350 17 Gm Packet) 17 gm PO DAILY [facility] Last Admin: 08/05/22 08:49 Dose: 17 gm Psyllium Hydrophilic Mucilloid (Psyllium Packet) 1 packet PO DAILY PRN PRN Reason: Constipation Last Admin: 07/11/22 12:37 Dose: 1 packet Senna (Senna 8.6 Mg Tablet) 8.6 - 17.2 mg PO BID [facility] Last Admin: 08/05/22 08:50 Dose: Not Given No Known Home Medications 05/30/22 Objective - Vital Signs/Intake & Output Vital Signs: Vital Signs x48h Temp Pulse Resp BP Pulse Ox 08/05/22 08:11 36.5 C 63 16 116/60 93 Intake & Output: Intake & Output 08/02/22 08/03/22 08/04/22 08/05/22 23:59 23:59 23:59 23:59 Intake Total 680 1190 1127 600 Output Total 1250 900 825 750 Balance -570 290 302 -150 - Objective General Appearance: positive: Alert, Mild distress Eyes Bilateral: positive: Normal inspection, PERRL, EOMI ENT: positive: ENT inspection nml, Pharynx nml, No signs of dehydration Neck: positive: Nml inspection, No JVD Respiratory: positive: No respiratory distress, Breath sounds nml. negative: Wheezes, Rales, Rhonchi Cardiovascular: positive: Regular rate & rhythm, No murmur, No gallop Abdomen: positive: Non-tender, No organomegaly, Nml bowel sounds, No distention Skin: positive: Color nml, No rash, Warm, Dry Extremities: positive: Nml appearance Neurologic/Psychiatric: positive: CN's nml (2-12), Mood/affect nml Comments/Other: He is still in very bad pain, he says it is getting worse along his back and axilla. 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 Even though he has dementia, he has been consistent on stating that he does not want treatment and would never want treatment. His pain has increased with the recent changes of his pain control. He reports increased pain again this morning in his axilla and back. Continue his Oxycodone to 10mg PO Q4HR and continue Morphine sulfate IR 7.5mg PO q12HR PRN Increase methadone 5mg TID Continue dexamethasone 4 mg daily, for relief of bone pain and for appetite stimulation. continue as needed Reglan 2) Cognitive impairment He was tested early in this admission and found to have no capacity for making decisions. Therefore the guardian was needed to be assigned. He has a guardian now. The only thing left is some financial information that needs to be completed so that he can be discharged to a facility. 3) FTT His oral intake has decreased substantially. For this reason also, the Hospice consult was requested. Dexamethasone for appetite stimulation will be ordered, as in #1.
[2022-08-05] MEDS: LIDOCAINE PATCH 5% TOP SCH (16:22)
--- NOTE | 2022-08-06 08:16 | PROVIDER PROGRESS NOTE ---
Subjective - Prog Note Date Prog Note Date: 08/06/22 Prog Note Time: 08:11 - Subjective Pt reports feeling: No change Subjective: Tim was still crying in pain this morning. He was holding his right shoulder, in severe pain that has made his appetite disappear. Current Medications - Current Medications Current Medications: Active Medications Acetaminophen (Acetaminophen 325 Mg Tablet) 650 mg PO Q4HR PRN PRN Reason: Pain 1 to 4, or Fever Last Admin: 08/04/22 17:25 Dose: 650 mg Dexamethasone (Dexamethasone 4 Mg Tablet) 4 mg PO DAILYWM [facility] Last Admin: 08/05/22 08:49 Dose: 4 mg Docusate Sodium (Docusate Sodium 250 Mg Capsule) 250 - 500 mg PO BID [facility] Last Admin: 08/05/22 21:05 Dose: 250 mg Enoxaparin Sodium (Enoxaparin 40 Mg/0.4 Ml Syringe) 40 mg SUBQ DAILY [facility] Last Admin: 08/05/22 08:48 Dose: 40 mg Lidocaine (Lidocaine Patch 5%) 1 patch TOP 1600 [facility] Last Admin: 08/05/22 16:22 Dose: 1 patch Lorazepam (Lorazepam 0.5 Mg Tablet) 1 mg SL Q4H PRN PRN Reason: Anxiety Last Admin: 07/19/22 00:06 Dose: 1 mg Methadone HCl (Methadone 5 Mg Tablet) 5 mg PO TID [facility] Last Admin: 08/05/22 21:44 Dose: 5 mg Metoclopramide HCl (Metoclopramide 10 Mg Tablet) 10 mg PO Q6H PRN PRN Reason: Nausea / Vomiting Morphine Sulfate (Morphine Ir 15 Mg Tablet) 7.5 mg PO Q12H PRN PRN Reason: Severe Pain Last Admin: 08/05/22 08:57 Dose: 7.5 mg Multi-Ingredient Ointment (Zinc Oxide 20% Oint 30 Gm Tube) 1 applic TOP PRN PRN PRN Reason: Skin Care Last Admin: 08/01/22 08:35 Dose: 1 applic Multivitamins/Minerals (Multivitamin W/Minerals Tablet) 1 tab PO DAILYWM [facility] Last Admin: 08/05/22 08:49 Dose: 1 tab Oxycodone HCl (Oxycodone 10 Mg/0.5 Ml Syringe) 10 mg PO QID [facility] Last Admin: 08/05/22 21:06 Dose: 10 mg Polyethylene Glycol (Polyethylene Glycol 3350 17 Gm Packet) 17 gm PO DAILY [facility] Last Admin: 08/05/22 08:49 Dose: 17 gm Psyllium Hydrophilic Mucilloid (Psyllium Packet) 1 packet PO DAILY PRN PRN Reason: Constipation Last Admin: 07/11/22 12:37 Dose: 1 packet Senna (Senna 8.6 Mg Tablet) 8.6 - 17.2 mg PO BID [facility] Last Admin: 08/05/22 21:05 Dose: 8.6 mg No Known Home Medications 05/30/22 Objective - Vital Signs/Intake & Output Vital Signs: Vital Signs x48h Temp Pulse Resp BP Pulse Ox 08/06/22 07:35 36.5 C 57 L 17 128/56 L 97 Intake & Output: Intake & Output 08/03/22 08/04/22 08/05/22 08/06/22 23:59 23:59 23:59 23:59 Intake Total 1190 1127 960 Output Total 419 994 6916 Balance 290 302 -190 - Objective General Appearance: positive: Alert, Mild distress Eyes Bilateral: positive: PERRL, EOMI ENT: positive: No signs of dehydration Neck: positive: No JVD Respiratory: positive: No respiratory distress Cardiovascular: positive: Regular rate & rhythm Abdomen: positive: Non-tender, No organomegaly, Nml bowel sounds, No distention Skin: positive: Warm, Dry Extremities: positive: Full ROM, Nml appearance Neurologic/Psychiatric: positive: CN's nml (2-12), Mood/affect nml - Lab Results Fish Bones: 07/13/22 08:19 07/13/22 08:19 ABX Reporting Has patient been on IV antibiotics over the past 48 hours?: No Sepsis Event Note (H) - Evaluation Current Stage of Sepsis: Ruled out Assessment/Plan - Problem List (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 Even though he has dementia, he has been consistent on stating that he does not want treatment and would never w ant treatment. His pain was increased again this morning and he was crying out for help, saying it is so bad he cant eat. Stop his Oxycodone to 10mg PO Q4HR Start Morphine sulfate IR 7.5mg PO TID Continue methadone 5mg TID Continue dexamethasone 4 mg daily, for relief of bone pain and for appetite stimulation. continue as needed Reglan 2) Cognitive impairment He was tested early in this admission and found to have no capacity for making decisions. Therefore the guardian was needed to be assigned. He has a guardian now. The only thing left is some financial information that needs to be completed so that he can be discharged to a facility. 3) FTT His oral intake has decreased substantially. For this reason also, the Hospice consult was requested. Dexamethasone for appetite stimulation will be ordered, as in #1
[2022-08-06] MEDS: MULTIVITAMIN W/MINERALS TABLET PO SCH (08:53)
[2022-08-06] MEDS: METHADONE 5 MG TABLET PO SCH ×3 (08:53→22:13)
[2022-08-06] MEDS: dexAMETHasone 4 MG TABLET PO SCH (08:53)
[2022-08-06] MEDS: oxyCODONE 10 MG/0.5 ML SYRINGE PO SCH (08:54)
[2022-08-06] MEDS: ENOXAPARIN 40 MG/0.4 ML SYRINGE SUBQ SCH (08:54)
[2022-08-06] MEDS: polyethylene glycoL 3350 17 GM PACKET PO SCH (08:54)
[2022-08-06] MEDS: SENNA 8.6 MG TABLET PO SCH ×2 (08:54→22:13)
[2022-08-06] MEDS: DOCUSATE SODIUM 250 MG CAPSULE PO SCH ×2 (08:54→22:13)
[2022-08-06] MEDS: MORPHINE IR 15 MG TABLET PO SCH ×2 (13:24→22:12)
[2022-08-06] MEDS: LIDOCAINE PATCH 5% TOP SCH (16:37)
[2022-08-06] MEDS: MORPHINE IR 15 MG TABLET PO PRN (18:33)
[2022-08-06] MEDS: ZINC OXIDE 20% OINT 30 GM TUBE TOP PRN (18:37)
[2022-08-07] MEDS: MORPHINE IR 15 MG TABLET PO PRN ×3 (02:10→17:45)
[2022-08-07] MEDS: MORPHINE IR 15 MG TABLET PO SCH ×3 (06:09→22:00)
[2022-08-07] MEDS: METHADONE 5 MG TABLET PO SCH ×3 (06:11→22:00)
[2022-08-07] MEDS: ENOXAPARIN 40 MG/0.4 ML SYRINGE SUBQ SCH (08:43)
[2022-08-07] MEDS: DOCUSATE SODIUM 250 MG CAPSULE PO SCH ×2 (08:44→22:00)
[2022-08-07] MEDS: dexAMETHasone 4 MG TABLET PO SCH (08:44)
[2022-08-07] MEDS: MULTIVITAMIN W/MINERALS TABLET PO SCH (08:44)
[2022-08-07] MEDS: SENNA 8.6 MG TABLET PO SCH ×2 (08:44→22:00)
[2022-08-07] MEDS: polyethylene glycoL 3350 17 GM PACKET PO SCH (08:44)
--- NOTE | 2022-08-07 12:32 | PROVIDER PROGRESS NOTE ---
Subjective - Prog Note Date Prog Note Date: 08/07/22 Prog Note Time: 12:30 - Subjective Pt reports feeling: No change Subjective: Tim is still in extreme pain, this morning he was yelling in pain again and it was so bad that he is unable to eat breakfast. Current Medications - Current Medications Current Medications: Active Medications Acetaminophen (Acetaminophen 325 Mg Tablet) 650 mg PO Q4HR PRN PRN Reason: Pain 1 to 4, or Fever Last Admin: 08/04/22 17:25 Dose: 650 mg Dexamethasone (Dexamethasone 4 Mg Tablet) 4 mg PO DAILYWM [facility] Last Admin: 08/07/22 08:44 Dose: 4 mg Docusate Sodium (Docusate Sodium 250 Mg Capsule) 250 - 500 mg PO BID [facility] Last Admin: 08/07/22 08:44 Dose: 250 mg Enoxaparin Sodium (Enoxaparin 40 Mg/0.4 Ml Syringe) 40 mg SUBQ DAILY [facility] Last Admin: 08/07/22 08:43 Dose: 40 mg Lidocaine (Lidocaine Patch 5%) 1 patch TOP 1600 [facility] Last Admin: 08/06/22 16:37 Dose: 1 patch Lorazepam (Lorazepam 0.5 Mg Tablet) 1 mg SL Q4H PRN PRN Reason: Anxiety Last Admin: 07/19/22 00:06 Dose: 1 mg Methadone HCl (Methadone 5 Mg Tablet) 5 mg PO TID [facility] Last Admin: 08/07/22 06:11 Dose: 5 mg Metoclopramide HCl (Metoclopramide 10 Mg Tablet) 10 mg PO Q6H PRN PRN Reason: Nausea / Vomiting Morphine Sulfate (Morphine Ir 15 Mg Tablet) 7.5 mg PO Q4H PRN PRN Reason: Severe Pain Last Admin: 08/07/22 09:12 Dose: 7.5 mg Morphine Sulfate (Morphine Ir 15 Mg Tablet) 7.5 mg PO TID [facility] Last Admin: 08/07/22 06:09 Dose: 7.5 mg Multi-Ingredient Ointment (Zinc Oxide 20% Oint 30 Gm Tube) 1 applic TOP PRN PRN PRN Reason: Skin Care Last Admin: 08/06/22 18:37 Dose: 1 applic Multivitamins/Minerals (Multivitamin W/Minerals Tablet) 1 tab PO DAILYWM [facility] Last Admin: 08/07/22 08:44 Dose: 1 tab Polyethylene Glycol (Polyethylene Glycol 3350 17 Gm Packet) 17 gm PO DAILY [facility] Last Admin: 08/07/22 08:44 Dose: 17 gm Psyllium Hydrophilic Mucilloid (Psyllium Packet) 1 packet PO DAILY PRN PRN Reason: Constipation Last Admin: 07/11/22 12:37 Dose: 1 packet Senna (Senna 8.6 Mg Tablet) 8.6 - 17.2 mg PO BID [facility] Last Admin: 08/07/22 08:44 Dose: 8.6 mg No Known Home Medications 05/30/22 Objective - Vital Signs/Intake & Output Vital Signs: Vital Signs x48h Temp Pulse BP 08/07/22 09:00 36.5 C 57 L 121/60 Intake & Output: Intake & Output 08/04/22 08/05/22 08/06/22 08/07/22 23:59 23:59 23:59 23:59 Intake Total 1127 960 920 Output Total 825 1150 650 325 Balance 302 -190 270 -325 - Objective General Appearance: positive: Alert, Mild distress Eyes Bilateral: positive: PERRL, EOMI ENT: positive: No signs of dehydration Neck: positive: No JVD Respiratory: positive: No respiratory distress Cardiovascular: positive: Regular rate & rhythm Abdomen: positive: Non-tender, No organomegaly, Nml bowel sounds, No distention Skin: positive: Warm, Dry Extremities: positive: Full ROM Neurologic/Psychiatric: positive: CN's nml (2-12), Disoriented to place, Disoriented to time - Lab Results Fish Bones: 07/13/22 08:19 07/13/22 08:19 ABX Reporting Has patient been on IV antibiotics over the past 48 hours?: No Sepsis Event Note (H) - Evaluation Current Stage of Sepsis: Ruled out Assessment/Plan - Problem List (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 Even though he has dementia, he has been consistent on stating that he does not want treatment and would never want treatment. His pain was increased again this morning and he was crying out for help, saying it is so bad he cant eat for the second morning in a row. Increase Morphine sulfate IR 15mg PO TID Continue methadone 5mg TID Continue dexamethasone 4 mg daily, for relief of bone pain and for appetite stimulation. continue as needed Reglan 2) Cognitive impairment He was tested early in this admission and found to have no capacity for making decisions. Therefore the guardian was needed to be assigned. He has a guardian now. The only thing left is some financial information that needs to be completed so that he can be discharged to a facility. 3) FTT His oral intake has decreased substantially. For this reason also, the Hospice consult was requested. Dexamethasone for appetite stimulation will be ordered, as in #1
[2022-08-07] MEDS: LIDOCAINE PATCH 5% TOP SCH (16:21)
[2022-08-08] MEDS: DOCUSATE SODIUM 250 MG CAPSULE PO SCH ×3 (08:12→21:44)
[2022-08-08] MEDS: METHADONE 5 MG TABLET PO SCH ×4 (08:12→21:42)
[2022-08-08] MEDS: SENNA 8.6 MG TABLET PO SCH ×3 (08:12→21:44)
[2022-08-08] MEDS: MORPHINE IR 15 MG TABLET PO SCH ×4 (08:13→21:42)
[2022-08-08] MEDS: ENOXAPARIN 40 MG/0.4 ML SYRINGE SUBQ SCH (08:34)
[2022-08-08] MEDS: MULTIVITAMIN W/MINERALS TABLET PO SCH (08:34)
[2022-08-08] MEDS: dexAMETHasone 4 MG TABLET PO SCH (08:34)
[2022-08-08] MEDS: polyethylene glycoL 3350 17 GM PACKET PO SCH (08:34)
--- NOTE | 2022-08-08 13:59 | PROVIDER PROGRESS NOTE ---
Progress Note August 08, 2022 1:53 PM He has been on morphine sulfate immediate release on a scheduled dose of 3 times daily. Not clear why but last night's weight shifter did not give him a dose. He got a dose that 8:00 this morning. Before he got that dose Tim told me that the pain is unbearable. He feels like he is being stabbed with a severe under neath his right scapula. The pain is worse there than even his right axillary pain. He is eating a few bites, maybe 30% of his food. Had a bowel movement today. Has been refusing to get out of bed for a week now. He was willing to sit up in bed, but very reluctant to sit up in a chair because the pain will be so bad with movement. Again pain is in the scapula and right mid axillary area and right armpit. Active Medications Acetaminophen (Acetaminophen 325 Mg Tablet) 650 mg PO Q4HR PRN PRN Reason: Pain 1 to 4, or Fever Last Admin: 08/04/22 17:25 Dose: 650 mg Dexamethasone (Dexamethasone 4 Mg Tablet) 4 mg PO DAILYWM [facility] Last Admin: 08/08/22 08:34 Dose: 4 mg Docusate Sodium (Docusate Sodium 250 Mg Capsule) 250 - 500 mg PO BID [facility] Last Admin: 08/08/22 08:34 Dose: 250 mg Enoxaparin Sodium (Enoxaparin 40 Mg/0.4 Ml Syringe) 40 mg SUBQ DAILY [facility] Last Admin: 08/08/22 08:34 Dose: 40 mg Lidocaine (Lidocaine Patch 5%) 1 patch TOP 1600 [facility] Last Admin: 08/07/22 16:21 Dose: 1 patch Lorazepam (Lorazepam 0.5 Mg Tablet) 1 mg SL Q4H PRN PRN Reason: Anxiety Last Admin: 07/19/22 00:06 Dose: 1 mg Methadone HCl (Methadone 5 Mg Tablet) 5 mg PO TID [facility] Last Admin: 08/08/22 08:33 Dose: 5 mg Metoclopramide HCl (Metoclopramide 10 Mg Tablet) 10 mg PO Q6H PRN PRN Reason: Nausea / Vomiting Morphine Sulfate (Morphine Ir 15 Mg Tablet) 7.5 mg PO Q4H PRN PRN Reason: Severe Pain Last Admin: 08/07/22 17:45 Dose: 7.5 mg Morphine Sulfate (Morphine Ir 15 Mg Tablet) 15 mg PO TID [facility] Last Admin: 08/08/22 08:33 Dose: 15 mg Multi-Ingredient Ointment (Zinc Oxide 20% Oint 30 Gm Tube) 1 applic TOP PRN PRN PRN Reason: Skin Care Last Admin: 08/06/22 18:37 Dose: 1 applic Multivitamins/Minerals (Multivitamin W/Minerals Tablet) 1 tab PO DAILYWM [facility] Last Admin: 08/08/22 08:34 Dose: 1 tab Polyethylene Glycol (Polyethylene Glycol 3350 17 Gm Packet) 17 gm PO DAILY [facility] Last Admin: 08/08/22 08:34 Dose: 17 gm Psyllium Hydrophilic Mucilloid (Psyllium Packet) 1 packet PO DAILY PRN PRN Reason: Constipation Last Admin: 07/11/22 12:37 Dose: 1 packet Senna (Senna 8.6 Mg Tablet) 8.6 - 17.2 mg PO BID [facility] Last Admin: 08/08/22 08:34 Dose: 8.6 mg No Known Home Medications 05/30/22 Temperature is 36.4. Heart rate 55. Blood pressure 139/59. Respirations 20. 92% on room air. Again the maximum weight we were able to get on him was 48 kg. That was July 10. Since then he has been coming down slowly. He was 45 kg July 15. 43 kg August 05. And 42.5 kg now. Cachectic, elderly, frail man, oriented to place but not to time and date. He tells me that he knows that he is got "cancer that is killing me". He begs me to just keep him comfortable. Assessment/plan 1. Neoplasm of uncertain behavior the right lower lobe of the lung. The tumor is eroding into his right rib cage in the axilla and I would think scapula now. Pain was present for many months before a chest x-ray was done. He has not had a lung biopsy. When we admitted him, he had already become quite cachectic and malnourished. Was living alone, and was found down, and brought into the hospital. Once he was hydrated, fed, and pain was controlled we identified him as having cognitive impairment. But even without impairment he has been consistent in stating he did not want anything done. He did not want biopsies, he did not want treatment. He just asked us to keep him comfortable. He has been consistent with this since admissionn. He was on MS Contin, oxycodone oral solution and tolerating his pain medications without excessive sedation. But by July 30 he was felt to be oversedated with 15 mg twice daily MS Contin. So hospice was consulted. Recommendation was to transition to methadone 2.5 p.o. twice daily, stop the MS Contin. Encouraged RN to premedicate with oxycodone prior to attempting to get him set up as well as increasing oxycodone use in general because on her review he had not had a dosing for 48 hours. A Lidoderm patch was added. Dexamethasone 4 mg twice daily for several days then to be reduced to 4 mg daily for relief of bone pain and appetite stimulation in the face of his cachexia. Unfortunately pain control has been more problematic with these changes. The patient is consistently telling me on a daily basis since I came back on service August 03 that he is miserable. He says the pain is the same as the pain he had when he first came in. He yells out in pain off and on. Nursing tells me that it is difficult to get him out of bed because movement to a chair causes him to have so much pain he does not want to eat. I increased the methadone from 2.5 to 5 mg Twice daily. I went from twice daily to 3 times daily. It is not clear why last night's nursing shift has documented that methadone and morphine immediate release were not given to the patient, but the medicines are not in Pyxis. So this morning we have had to play a little bit of catch up for this pain.We think. Pharmacy is clearing up the issue. He did not get a 6 AM dose, again because of the Pyxis issue. So he got his morning meds around 830. By then he was moaning and crying. I reassessed him at 2:00 and he is sleepy, appears slightly sedated but wakes to my voice. Says that his he is laying in bed he feels "okay". I plan to continue to reassess him frequently. Make sure to keep his pain under control. And I am working closely with nursing and pharmacy. 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 That change was made on August 04.
[2022-08-08] MEDS: LIDOCAINE PATCH 5% TOP SCH (15:51)
[2022-08-09] MEDS: METHADONE 5 MG TABLET PO SCH ×3 (06:07→21:11)
[2022-08-09] MEDS: MORPHINE IR 15 MG TABLET PO SCH ×4 (06:08→21:09)
[2022-08-09] MEDS: MORPHINE IR 15 MG TABLET PO PRN ×2 (08:29→12:35)
[2022-08-09] MEDS: dexAMETHasone 4 MG TABLET PO SCH (08:30)
[2022-08-09] MEDS: MULTIVITAMIN W/MINERALS TABLET PO SCH (08:30)
[2022-08-09] MEDS: SENNA 8.6 MG TABLET PO SCH ×2 (08:30→21:11)
[2022-08-09] MEDS: ENOXAPARIN 40 MG/0.4 ML SYRINGE SUBQ SCH (08:31)
[2022-08-09] MEDS: polyethylene glycoL 3350 17 GM PACKET PO SCH (08:32)
[2022-08-09] MEDS: DOCUSATE SODIUM 250 MG CAPSULE PO SCH ×2 (08:32→21:11)
--- NOTE | 2022-08-09 10:09 | PROVIDER PROGRESS NOTE ---
Subjective - Prog Note Date Prog Note Date: 08/09/22 Prog Note Time: 10:07 - Subjective Pt reports feeling: No change Subjective: Tim is laying in bed this morning, he seems to be most comfortable when he's lying flat supine. He said he was in pain still, but he's not crying out in pain. The nurses have said that his pain increases about 2 hours after his morphine IR. Current Medications - Current Medications Current Medications: Active Medications Acetaminophen (Acetaminophen 325 Mg Tablet) 650 mg PO Q4HR PRN PRN Reason: Pain 1 to 4, or Fever Last Admin: 08/04/22 17:25 Dose: 650 mg Dexamethasone (Dexamethasone 4 Mg Tablet) 4 mg PO DAILYWM [facility] Last Admin: 08/09/22 08:30 Dose: 4 mg Docusate Sodium (Docusate Sodium 250 Mg Capsule) 250 - 500 mg PO BID [facility] Last Admin: 08/09/22 08:32 Dose: Not Given Enoxaparin Sodium (Enoxaparin 40 Mg/0.4 Ml Syringe) 40 mg SUBQ DAILY [facility] Last Admin: 08/09/22 08:31 Dose: 40 mg Lidocaine (Lidocaine Patch 5%) 1 patch TOP 1600 [facility] Last Admin: 08/08/22 15:51 Dose: 1 patch Lorazepam (Lorazepam 0.5 Mg Tablet) 1 mg SL Q4H PRN PRN Reason: Anxiety Last Admin: 07/19/22 00:06 Dose: 1 mg Methadone HCl (Methadone 5 Mg Tablet) 5 mg PO TID [facility] Last Admin: 08/09/22 06:07 Dose: 5 mg Metoclopramide HCl (Metoclopramide 10 Mg Tablet) 10 mg PO Q6H PRN PRN Reason: Nausea / Vomiting Morphine Sulfate (Morphine Ir 15 Mg Tablet) 7.5 mg PO Q4H PRN PRN Reason: Severe Pain Last Admin: 08/09/22 08:29 Dose: 7.5 mg Morphine Sulfate (Morphine Ir 15 Mg Tablet) 15 mg PO TID [facility] Last Admin: 08/09/22 06:08 Dose: 15 mg Multi-Ingredient Ointment (Zinc Oxide 20% Oint 30 Gm Tube) 1 applic TOP PRN PRN PRN Reason: Skin Care Last Admin: 08/06/22 18:37 Dose: 1 applic Multivitamins/Minerals (Multivitamin W/Minerals Tablet) 1 tab PO DAILYWM [facility] Last Admin: 08/09/22 08:30 Dose: 1 tab Polyethylene Glycol (Polyethylene Glycol 3350 17 Gm Packet) 17 gm PO DAILY [facility] Last Admin: 08/09/22 08:32 Dose: Not Given Psyllium Hydrophilic Mucilloid (Psyllium Packet) 1 packet PO DAILY PRN PRN Reason: Constipation Last Admin: 07/11/22 12:37 Dose: 1 packet Senna (Senna 8.6 Mg Tablet) 8.6 - 17.2 mg PO BID [facility] Last Admin: 08/09/22 08:30 Dose: 8.6 mg No Known Home Medications 05/30/22 Objective - Vital Signs/Intake & Output Vital Signs: Vital Signs x48h Temp Pulse Resp BP Pulse Ox 08/09/22 08:11 36.4 C L 59 L 18 104/50 L 93 Intake & Output: Intake & Output 08/06/22 08/07/22 08/08/22 08/09/22 23:59 23:59 23:59 23:59 Intake Total 920 890 997 Output Total 650 805 750 200 Balance 270 85 247 -200 - Objective General Appearance: positive: No acute distress, Alert Eyes Bilateral: positive: PERRL, EOMI ENT: positive: No signs of dehydration Neck: positive: No JVD Respiratory: positive: No respiratory distress, Breath sounds nml Cardiovascular: positive: Regular rate & rhythm, No murmur, No gallop Abdomen: positive: Non-tender, No organomegaly, Nml bowel sounds, No distention Skin: positive: Warm, Dry Extremities: positive: Full ROM, Nml appearance Neurologic/Psychiatric: positive: CN's nml (2-12), Disoriented to place, Disoriented to time - Lab Results Fish Bones: 07/13/22 08:19 07/13/22 08:19 ABX Reporting Has patient been on IV antibiotics over the past 48 hours?: No Sepsis Event Note (H) - Evaluation Current Stage of Sepsis: Ruled out Assessment/Plan - Problem List (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 Previously he was tolerating his medications without excessive oversedation however by July 30 he was felt to be oversedated with 15mg BID MS contin so hospice was consulted. At that time the recommendation with to transition to methadone 2.5 PO BID and s top MS Contin. A Lidoderm patch was added and Dexamethasone 4mg BID for several days then reduced to 4mg daily for relief of bone pain and stimuation of appetite due to his cachexia. Pain control became very problematic with these changes, he is yelling on and off in excruciating pain and Nursing is unable to get him out of bed and into a chair because it causes him so much pain he will refuse to eat. He was increased to Methadone 2.5 to 5mg BID, then to TID. In addition he is given Morphine IR 15mg TID with morphine IR 7.5mg prn for breakthrough pain. He is managed slightly better this morning, he is still in a high level of pain but he is not crying out for help. The nurses report that he starts to cry out in pain about 2 hours after his scheduled morphine dose. I will increase his med ications to adequately control his pain. 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 That change was made on August 04.
[2022-08-09] MEDS ORDERED: MORPHINE IR 15 MG TABLET PO PRN (14:39)
[2022-08-09] MEDS: LIDOCAINE PATCH 5% TOP SCH (15:56)
[2022-08-09] MEDS: LORazepam 0.5 MG TABLET SL PRN (21:33)
[2022-08-10] MEDS: METHADONE 5 MG TABLET PO SCH ×3 (06:41→21:36)
[2022-08-10] MEDS: MORPHINE IR 15 MG TABLET PO SCH ×4 (08:31→21:42)
[2022-08-10] MEDS: DOCUSATE SODIUM 250 MG CAPSULE PO SCH ×2 (08:32→21:42)
[2022-08-10] MEDS: MULTIVITAMIN W/MINERALS TABLET PO SCH (08:32)
[2022-08-10] MEDS: SENNA 8.6 MG TABLET PO SCH ×2 (08:32→21:38)
[2022-08-10] MEDS: polyethylene glycoL 3350 17 GM PACKET PO SCH (08:32)
[2022-08-10] MEDS: ENOXAPARIN 40 MG/0.4 ML SYRINGE SUBQ SCH ×2 (08:32→10:58)
[2022-08-10] MEDS: dexAMETHasone 4 MG TABLET PO SCH (08:32)
--- NOTE | 2022-08-10 13:38 | PROVIDER PROGRESS NOTE ---
Subjective - Prog Note Date Prog Note Date: 08/10/22 Prog Note Time: 13:36 - Subjective Pt reports feeling: Improved (Tim's pain is better controlled, he is more comfortable lying down and he is sleeping better.) Current Medications - Current Medications Current Medications: Active Medications Acetaminophen (Acetaminophen 325 Mg Tablet) 650 mg PO Q4HR PRN PRN Reason: Pain 1 to 4, or Fever Last Admin: 08/04/22 17:25 Dose: 650 mg Dexamethasone (Dexamethasone 4 Mg Tablet) 4 mg PO DAILYWM [facility] Last Admin: 08/10/22 08:32 Dose: 4 mg Docusate Sodium (Docusate Sodium 250 Mg Capsule) 250 - 500 mg PO BID [facility] Last Admin: 08/10/22 08:32 Dose: Not Given Enoxaparin Sodium (Enoxaparin 40 Mg/0.4 Ml Syringe) 40 mg SUBQ DAILY [facility] Last Admin: 08/10/22 10:58 Dose: Not Given Lidocaine (Lidocaine Patch 5%) 1 patch TOP 1600 [facility] Last Admin: 08/09/22 15:56 Dose: 1 patch Lorazepam (Lorazepam 0.5 Mg Tablet) 1 mg SL Q4H PRN PRN Reason: Anxiety Last Admin: 08/09/22 21:33 Dose: 1 mg Methadone HCl (Methadone 5 Mg Tablet) 5 mg PO TID [facility] Last Admin: 08/10/22 06:41 Dose: 5 mg Metoclopramide HCl (Metoclopramide 10 Mg Tablet) 10 mg PO Q6H PRN PRN Reason: Nausea / Vomiting Morphine Sulfate (Morphine Ir 15 Mg Tablet) 15 mg PO QID [facility] Last Admin: 08/10/22 13:06 Dose: 15 mg Morphine Sulfate (Morphine Ir 15 Mg Tablet) 15 mg PO Q4H PRN PRN Reason: Severe Pain Multi-Ingredient Ointment (Zinc Oxide 20% Oint 30 Gm Tube) 1 applic TOP PRN PRN PRN Reason: Skin Care Last Admin: 08/06/22 18:37 Dose: 1 applic Multivitamins/Minerals (Multivitamin W/Minerals Tablet) 1 tab PO DAILYWM [facility] Last Admin: 08/10/22 08:32 Dose: 1 tab Polyethylene Glycol (Polyethylene Glycol 3350 17 Gm Packet) 17 gm PO DAILY [facility] Last Admin: 08/10/22 08:32 Dose: Not Given Psyllium Hydrophilic Mucilloid (Psyllium Packet) 1 packet PO DAILY PRN PRN Reason: Constipation Last Admin: 07/11/22 12:37 Dose: 1 packet Senna (Senna 8.6 Mg Tablet) 8.6 - 17.2 mg PO BID [facility] Last Admin: 08/10/22 08:32 Dose: Not Given No Known Home Medications 05/30/22 Objective - Vital Signs/Intake & Output Vital Signs: Vital Signs x48h Temp Pulse Resp BP Pulse Ox 08/10/22 08:33 36.4 C L 62 18 106/51 L 95 Intake & Output: Intake & Output 08/07/22 08/08/22 08/09/22 08/10/22 23:59 23:59 23:59 23:59 Intake Total 890 997 690 30 Output Total 805 750 250 300 Balance 85 247 440 -270 - Objective General Appearance: positive: No acute distress, Alert Eyes Bilateral: positive: PERRL, EOMI ENT: positive: No signs of dehydration Neck: positive: No JVD Respiratory: positive: No respiratory distress Cardiovascular: positive: Regular rate & rhythm Abdomen: positive: Non-tender, No distention Skin: positive: Warm, Dry Neurologic/Psychiatric: positive: CN's nml (2-12) - Lab Results Fish Bones: 07/13/22 08:19 07/13/22 08:19 ABX Reporting Has patient been on IV antibiotics over the past 48 hours?: No Sepsis Event Note (H) - Evaluation Current Stage of Sepsis: Ruled out Assessment/Plan - Problem List (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 Previously he was tolerating his medications without excessive oversedation however by July 30 he was felt to be oversedated with 15mg BID MS contin so hospice was consulted. At that time the recommendation with to transition to methadone 2.5 PO BID and stop MS Contin. A Lidoderm patch was added and Dexamethasone 4mg BID for several days then reduced to 4mg daily for relief of bone pain and stimuation of appetite due to his cachexia. Pain control became very problematic with these changes, he is yelling on and off in excruciating pain and nursing is unable to get him out of bed and into a chair because it causes him so much pain he will refuse to eat. He was increased to Methadone 2.5 to 5mg BID, then to TID. In addition he is given Morphine IR 15mg TID with morphine IR 7.5mg prn for breakthrough pain, on 08/09 his prn morphine was increased to 15mg and he has reported that his pain has been much more manageable on this regimen. 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 That change was made on August 04.
[2022-08-10] MEDS: LIDOCAINE PATCH 5% TOP SCH (17:11)
[2022-08-11] MEDS: METHADONE 5 MG TABLET PO SCH ×3 (05:32→21:56)
[2022-08-11] MEDS: MORPHINE IR 15 MG TABLET PO SCH ×4 (07:49→19:59)
[2022-08-11] MEDS: DOCUSATE SODIUM 250 MG CAPSULE PO SCH ×2 (08:48→20:02)
[2022-08-11] MEDS: SENNA 8.6 MG TABLET PO SCH ×2 (08:48→20:02)
[2022-08-11] MEDS: dexAMETHasone 4 MG TABLET PO SCH (08:48)
[2022-08-11] MEDS: MULTIVITAMIN W/MINERALS TABLET PO SCH (08:48)
[2022-08-11] MEDS: ENOXAPARIN 40 MG/0.4 ML SYRINGE SUBQ SCH (08:48)
[2022-08-11] MEDS: polyethylene glycoL 3350 17 GM PACKET PO SCH (08:49)
--- NOTE | 2022-08-11 13:34 | PROVIDER PROGRESS NOTE ---
Subjective - Prog Note Date Prog Note Date: 08/11/22 Prog Note Time: 13:31 - Subjective Subjective: He tells me the pain is better. Current Medications - Current Medications Current Medications: Active Medications Generic Name Dose Route Start Last Admin Trade Name Freq PRN Reason Stop Dose Admin Acetaminophen 650 mg 05/29/22 14:15 08/04/22 17:25 Acetaminophen 325 Mg Tablet PO 650 mg Q4HR PRN Administration Pain 1 to 4, or Fever Dexamethasone 4 mg 08/04/22 08:00 08/11/22 08:48 Dexamethasone 4 Mg Tablet PO 4 mg DAILYWM MICHAELA Administration Docusate Sodium 250 - 500 mg 07/04/22 21:00 08/11/22 08:48 Docusate Sodium 250 Mg Capsule PO 250 mg BID MICHAELA Administration Enoxaparin Sodium 40 mg 05/30/22 09:00 08/11/22 08:48 Enoxaparin 40 Mg/0.4 Ml Syringe SUBQ 40 mg DAILY MICHAELA Administration Lidocaine 1 patch 08/01/22 16:00 08/10/22 17:11 Lidocaine Patch 5% TOP 1 patch 1600 MICHAELA Administration Lorazepam 1 mg 07/13/22 18:33 08/09/22 21:33 Lorazepam 0.5 Mg Tablet SL 1 mg Q4H PRN Administration Anxiety Methadone HCl 5 mg 08/05/22 22:00 08/11/22 05:32 Methadone 5 Mg Tablet PO 5 mg TID MICHAELA Administration Metoclopramide HCl 10 mg 08/01/22 16:46 Metoclopramide 10 Mg Tablet PO Q6H PRN Nausea / Vomiting Morphine Sulfate 15 mg 08/09/22 17:00 08/11/22 12:47 Morphine Ir 15 Mg Tablet PO 15 mg QID MICHAELA Administration Morphine Sulfate 15 mg 08/09/22 14:39 Morphine Ir 15 Mg Tablet PO Q4H PRN Severe Pain Multi-Ingredient Ointment 1 applic 05/30/22 22:39 08/06/22 18:37 Zinc Oxide 20% Oint 30 Gm Tube TOP 1 applic PRN PRN Administration Skin Care Multivitamins/Minerals 1 tab 05/30/22 11:00 08/11/22 08:48 Multivitamin W/Minerals Tablet PO 1 tab DAILYWM MICHAELA Administration Polyethylene Glycol 17 gm 05/30/22 09:00 08/11/22 08:49 Polyethylene Glycol 3350 17 Gm Packet PO 17 gm DAILY MICHAELA Administration Psyllium Hydrophilic Mucilloid 1 packet 06/21/22 08:53 07/11/22 12:37 Psyllium Packet PO 1 packet DAILY PRN Administration Constipation Senna 8.6 - 17.2 mg 07/04/22 17:00 08/11/22 08:48 Senna 8.6 Mg Tablet PO 8.6 mg BID MICHAELA Administration No Known Home Medications 05/30/22 Objective - Vital Signs/Intake & Output Reviewed Vital Signs: Yes Vital Signs: Vital Signs x48h Temp Pulse Resp BP Pulse Ox 08/11/22 08:07 36.5 C 61 16 98/71 97 Intake & Output: Intake & Output 08/08/22 08/09/22 08/10/22 08/11/22 23:59 23:59 23:59 23:59 Intake Total 997 690 500 340 Output Total 750 250 525 150 Balance 247 440 -25 190 - Objective General Appearance: positive: No acute distress, Other (Sitting up in bed. Watching TV because the football games about to come on. Cachectic, sleepy) Eyes Bilateral: positive: PERRL, EOMI Neck: negative: Stiff neck Respiratory: positive: No respiratory distress, Rhonchi. negative: Wheezes, Rales Cardiovascular: positive: Regular rate & rhythm Abdomen: positive: Nml bowel sounds, No distention Skin: positive: Warm, Dry Extremities: positive: Other (Severe cachexia) Neurologic/Psychiatric: positive: CN's nml (2-12), Motor nml (But moderate diffuse weakness. 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 Previously he was tolerating his medications without excessive oversedation however by July 30 he was felt to be oversedated with 15mg BID MS contin so hospice was consulted. At that time the recommendation with to transition to methadone 2.5 PO BID and stop MS Contin. A Lidoderm patch was added and Dexamethasone 4mg BID for several days then reduced to 4mg daily for relief of bone pain and stimuation of appetite due to his cachexia. Pain control became very problematic with these changes, he is yelling on and off in excruciating pain and nursing is unable to get him out of bed and into a chair because it causes him so much pain he will refuse to eat. He was increased to Methadone 2.5 to 5mg BID, then to TID. In addition he is given Morphine IR 15mg TID with morphine IR 7.5mg prn for breakthrough pain, on 08/09 his prn morphine was increased to 15mg and he has reported that his pain has been much more manageable on this regimen. He is reportedly a little bit more sedated. Yesterday he slept most of the day. So last night pain medicines were skipped but this morning he was in pain. Nursing is trying to balance sedation and pain management. But his pain is much more controlled now than it was 2 days ago 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 That change was made on August 04.
[2022-08-11] MEDS: LIDOCAINE PATCH 5% TOP SCH (16:04)
[2022-08-12] MEDS: METHADONE 5 MG TABLET PO SCH ×3 (06:19→21:05)
[2022-08-12] MEDS: polyethylene glycoL 3350 17 GM PACKET PO SCH (08:55)
[2022-08-12] MEDS: MORPHINE IR 15 MG TABLET PO SCH ×4 (08:55→21:10)
[2022-08-12] MEDS: MULTIVITAMIN W/MINERALS TABLET PO SCH (08:56)
[2022-08-12] MEDS: DOCUSATE SODIUM 250 MG CAPSULE PO SCH ×2 (08:56→21:05)
[2022-08-12] MEDS: dexAMETHasone 4 MG TABLET PO SCH (08:56)
[2022-08-12] MEDS: SENNA 8.6 MG TABLET PO SCH ×2 (08:56→21:05)
[2022-08-12] MEDS: ENOXAPARIN 40 MG/0.4 ML SYRINGE SUBQ SCH (08:57)
[2022-08-12] MEDS: LORazepam 0.5 MG TABLET SL PRN (09:49)
--- NOTE | 2022-08-12 13:40 | PROVIDER PROGRESS NOTE ---
Subjective - Prog Note Date Prog Note Date: 08/12/22 Prog Note Time: 13:38 - Subjective Pt reports feeling: No change Subjective: Tim is very unsettled, crying out in pain to the nurses all night and unable to eat due to his pain. Current Medications - Current Medications Current Medications: Active Medications Acetaminophen (Acetaminophen 325 Mg Tablet) 650 mg PO Q4HR PRN PRN Reason: Pain 1 to 4, or Fever Last Admin: 08/04/22 17:25 Dose: 650 mg Dexamethasone (Dexamethasone 4 Mg Tablet) 4 mg PO DAILYWM [facility] Last Admin: 08/12/22 08:56 Dose: 4 mg Docusate Sodium (Docusate Sodium 250 Mg Capsule) 250 - 500 mg PO BID [facility] Last Admin: 08/12/22 08:56 Dose: 250 mg Enoxaparin Sodium (Enoxaparin 40 Mg/0.4 Ml Syringe) 40 mg SUBQ DAILY [facility] Last Admin: 08/12/22 08:57 Dose: 40 mg Lidocaine (Lidocaine Patch 5%) 1 patch TOP 1600 [facility] Last Admin: 08/11/22 16:04 Dose: 1 patch Lorazepam (Lorazepam 0.5 Mg Tablet) 1 mg SL Q4H PRN PRN Reason: Anxiety Last Admin: 08/12/22 09:49 Dose: 1 mg Methadone HCl (Methadone 5 Mg Tablet) 5 mg PO TID [facility] Last Admin: 08/12/22 06:19 Dose: 5 mg Metoclopramide HCl (Metoclopramide 10 Mg Tablet) 10 mg PO Q6H PRN PRN Reason: Nausea / Vomiting Morphine Sulfate (Morphine Ir 15 Mg Tablet) 30 mg PO Q4H PRN PRN Reason: Severe Pain Morphine Sulfate (Morphine Ir 15 Mg Tablet) 30 mg PO QID [facility] Multi-Ingredient Ointment (Zinc Oxide 20% Oint 30 Gm Tube) 1 applic TOP PRN PRN PRN Reason: Skin Care Last Admin: 08/06/22 18:37 Dose: 1 applic Multivitamins/Minerals (Multivitamin W/Minerals Tablet) 1 tab PO DAILYWM [facility] Last Admin: 08/12/22 08:56 Dose: 1 tab Polyethylene Glycol (Polyethylene Glycol 3350 17 Gm Packet) 17 gm PO DAILY [facility] Last Admin: 08/12/22 08:55 Dose: 17 gm Psyllium Hydrophilic Mucilloid (Psyllium Packet) 1 packet PO DAILY PRN PRN Reason: Constipation Last Admin: 07/11/22 12:37 Dose: 1 packet Senna (Senna 8.6 Mg Tablet) 8.6 - 17.2 mg PO BID MICHAELA Last Admin: 08/12/22 08:56 Dose: 8.6 mg No Known Home Medications 05/30/22 Objective - Vital Signs/Intake & Output Vital Signs: Vital Signs x48h Temp Pulse Resp Pulse Ox 08/12/22 08:50 36.5 C 59 L 16 99 Intake & Output: Intake & Output 08/09/22 08/10/22 08/11/22 08/12/22 23:59 23:59 23:59 23:59 Intake Total 690 500 948 320 Output Total 250 525 600 275 Balance 440 -25 348 45 - Objective General Appearance: positive: Alert, Mild distress, Other (cachectic) Eyes Bilateral: positive: PERRL, EOMI ENT: positive: No signs of dehydration Neck: positive: No JVD Respiratory: positive: No respiratory distress, Breath sounds nml Cardiovascular: positive: Regular rate & rhythm Abdomen: positive: Non-tender, No distention Skin: positive: Warm, Dry Extremities: positive: Non-tender, Other (extremely thin) Neurologic/Psychiatric: positive: CN's nml (2-12), Motor nml (with diffuse weakness.), Disoriented to place, Disoriented to time - Lab Results Fish Bones: 07/13/22 08:19 07/13/22 08:19 ABX Reporting Has patient been on IV antibiotics over the past 48 hours?: No Sepsis Event Note (H) - Evaluation Current Stage of Sepsis: Ruled out Assessment/Plan - Problem List (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 Previously he was tolerating his medications without excessive oversedation however by July 30 he was felt to be oversedated with 15mg BID MS contin so hospice was consulted. At that time the recommendation with to transition to methadone 2.5 PO BID and stop MS Contin. A Lidoderm patch was added and Dexamethasone 4mg BID for several days then reduced to 4mg daily for relief of bone pain and stimuation of appetite due to his cachexia. Pain control became very problematic with these changes, he is yelling on and off in excruciating pain and nursing is unable to get him out of bed and into a chair because it causes him so much pain he will refuse to eat. He was increased to Methadone 2.5 to 5mg BID, then to TID. In addition he is given Morphine IR 15mg TID with morphine IR 7.5mg prn for breakthrough pain, on 08/09 his prn morphine was increased to 15mg and he has reported that his pain has been much more manageable on this regimen. He is reportedly a little bit more sedated. 08/10 he slept most of the day so that night his pain medicines were skipped but the morning of 08/11 he was in pain. Nursing is trying to balance sedation and pain management. 08/12 he is crying out in pain, unable to eat due to this pain. Plan: - Continue Methadone 5mg TID - Increase Morphine IR 30mg QID - Continue Morphine IR 30mg prn 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 That change was made on August 04.
[2022-08-12] MEDS: LIDOCAINE PATCH 5% TOP SCH (17:23)
[2022-08-13] MEDS: METHADONE 5 MG TABLET PO SCH ×3 (05:40→21:59)
[2022-08-13] MEDS: ZINC OXIDE 20% OINT 30 GM TUBE TOP PRN (05:54)
[2022-08-13] MEDS: DOCUSATE SODIUM 250 MG CAPSULE PO SCH ×2 (08:44→20:39)
[2022-08-13] MEDS: MORPHINE IR 15 MG TABLET PO SCH ×4 (08:45→20:41)
[2022-08-13] MEDS: MULTIVITAMIN W/MINERALS TABLET PO SCH (08:45)
[2022-08-13] MEDS: dexAMETHasone 4 MG TABLET PO SCH (08:46)
[2022-08-13] MEDS: SENNA 8.6 MG TABLET PO SCH ×2 (08:46→20:44)
[2022-08-13] MEDS: polyethylene glycoL 3350 17 GM PACKET PO SCH (08:47)
[2022-08-13] MEDS: ENOXAPARIN 40 MG/0.4 ML SYRINGE SUBQ SCH (08:47)
--- NOTE | 2022-08-13 13:04 | PROVIDER PROGRESS NOTE ---
Assessment/Plan - Problem List (1) Metastatic lung cancer (metastasis from lung to other site) Qualifiers: Qualified Code(s): C34.90 - Malignant neoplasm of unspecified part of unspecified bronchus or lung Assessment/Plan: His pain has worsened. No CXR was done as it would likely show more tumor spread into ribs. We increased immediate release morphine to 30 mg 4 times daily scheduled dose. And continuing immediate release morphine 30 mg every 4 hours as needed. Plan: - Continue Methadone 5mg TID - Increase Morphine IR 30mg QID - Continue Morphine IR 30mg prn - Nursing is trying to balance over-sedation and pain management. 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 3. Cognitive impairment Plan: A court appointed guardian was needed. Social work has been trying to find placement for him, but it cannot be completed until guardianship and finances are finalized - Current Meds Current Meds: Current Medications Generic Name Dose Route Start Last Admin Trade Name Freq PRN Reason Stop Dose Admin Acetaminophen 650 mg 05/29/22 14:15 08/04/22 17:25 Acetaminophen 325 Mg Tablet PO 650 mg Q4HR PRN Administration Pain 1 to 4, or Fever Dexamethasone 4 mg 08/04/22 08:00 08/13/22 08:46 Dexamethasone 4 Mg Tablet PO 4 mg DAILYWM MICHAELA Administration Docusate Sodium 250 - 500 mg 07/04/22 21:00 08/13/22 08:44 Docusate Sodium 250 Mg Capsule PO 250 mg BID MICHAELA Administration Enoxaparin Sodium 40 mg 05/30/22 09:00 08/13/22 08:47 Enoxaparin 40 Mg/0.4 Ml Syringe SUBQ 40 mg DAILY MICHAELA Administration Lidocaine 1 patch 08/01/22 16:00 08/12/22 17:23 Lidocaine Patch 5% TOP 1 patch 1600 MICHAELA Administration Lorazepam 1 mg 07/13/22 18:33 08/12/22 09:49 Lorazepam 0.5 Mg Tablet SL 1 mg Q4H PRN Administration Anxiety Methadone HCl 5 mg 08/05/22 22:00 08/13/22 05:40 Methadone 5 Mg Tablet PO 5 mg TID MICHAELA Administration Morphine Sulfate 30 mg 08/12/22 13:00 08/13/22 08:45 Morphine Ir 15 Mg Tablet PO 30 mg QID MICHAELA Administration Multi-Ingredient Ointment 1 applic 05/30/22 22:39 08/13/22 05:54 Zinc Oxide 20% Oint 30 Gm Tube TOP 1 applic PRN PRN Administration Skin Care Multivitamins/Minerals 1 tab 05/30/22 11:00 08/13/22 08:45 Multivitamin W/Minerals Tablet PO 1 tab DAILYWM MICHAELA Administration Polyethylene Glycol 17 gm 05/30/22 09:00 08/13/22 08:47 Polyethylene Glycol 3350 17 Gm Packet PO 17 gm DAILY MICHAELA Administration Psyllium Hydrophilic Mucilloid 1 packet 06/21/22 08:53 07/11/22 12:37 Psyllium Packet PO 1 packet DAILY PRN Administration Constipation Senna 8.6 - 17.2 mg 07/04/22 17:00 08/13/22 08:46 Senna 8.6 Mg Tablet PO 8.6 mg BID MICHAELA Administration - Lab Result Fish Bone Diagrams: 07/13/22 08:19 07/13/22 08:19 Subjective - Subjective Patient Reports: Pain (Pain is worse today, he is holding the right axillary and rib cage area. Today he is not screaming due to his pain however) Objective Vital Signs: Vital Signs - 24 hr 08/12/22 08/13/22 16:43 07:42 Temperature 36.3 C L 36.6 C Heart Rate [ 52 L 66 Brachial] Respiratory 16 20 Rate Blood Pressure 114/52 L 127/61 [Right Brachial artery] O2 Saturation 99 95 Oxygen O2 Source Room air I&O (Last 24 Hrs): Intake and Output Totals x24h 08/11/22 08/12/22 08/13/22 23:59 23:59 23:59 Intake Total 948 700 450 Output Total 600 800 350 Balance 348 -100 100 General: Alert HEENT: Mucous membr. moist/pink, Other (Cachectic, temporal wasting) Neck: Supple Neuro: Alert, Other (Poor memory) Cardiovascular: Regular rate Respiratory: No respiratory distress Abdomen: Soft Extremities: No clubbing, No edema - Results Results: Laboratory Results WBC 8.4 x10^3/uL (4.8-10.8) 07/13/22 08:19 RBC 3.87 10^6/uL (4.70-6.10) L 07/13/22 08:19 Hgb 9.7 g/dL (14.0-18.0) L 07/13/22 08:19 Hct 32.7 % (42.0-52.0) L 07/13/22 08:19 MCV 84.5 fL (80.0-94.0) 07/13/22 08:19 MCH 25.1 pg (27.0-31.0) L 07/13/22 08:19 MCHC 29.7 g/dL (32.0-36.0) L 07/13/22 08:19 RDW 15.9 % (12.0-15.0) H 07/13/22 08:19 Plt Count 543 10^3/uL (130-450) H 07/13/22 08:19 MPV 8.6 fL (7.4-11.4) 07/13/22 08:19 Neut # (Auto) 5.7 10^3/uL (1.5-6.6) 07/13/22 08:19 Lymph # (Auto) 1.4 10^3/uL (1.5-3.5) L 07/13/22 08:19 [place] # (Auto) 1.0 10^3/uL (0.0-1.0) 07/13/22 08:19 Eos # (Auto) 0.1 10^3/uL (0.0-0.7) 07/13/22 08:19 Baso # (Auto) 0.1 10^3/uL (0.0-0.1) 07/13/22 08:19 Absolute Nucleated RBC 0.00 x10^3/uL 07/13/22 08:19 Nucleated RBC % 0.0 /100WBC 07/13/22 08:19 PT 13.8 secs (9.9-12.6) H 05/30/22 04:50 INR 1.3 (0.8-1.2) H 05/30/22 04:50 Sodium 133 mmol/L (135-145) L 07/13/22 08:19 Potassium 3.9 mmol/L (3.5-5.0) 07/13/22 08:19 Chloride 94 mmol/L (101-111) L 07/13/22 08:19 Carbon Dioxide 27 mmol/L (21-32) 10/29/22 08:19 Anion Gap 12.0 (6-13) 07/13/22 08:19 BUN 18 mg/dL (6-20) 07/13/22 08:19 Creatinine 0.8 mg/dL (0.6-1.2) 07/13/22 08:19 Estimated GFR (MDRD) 93 (>89) 07/13/22 08:19 Glucose 94 mg/dL (70-100) 07/13/22 08:19 Calcium 9.1 mg/dL (8.5-10.3) 07/13/22 08:19 Phosphorus 1.1 mg/dL (2.5-4.6) L 05/30/22 04:50 Magnesium 2.1 mg/dL (1.7-2.8) 06/07/22 05:01 Total Bilirubin 0.8 mg/dL (0.2-1.0) 05/29/22 06:20 AST 20 IU/L (10-42) 05/29/22 06:20 ALT 17 IU/L (10-60) 05/29/22 06:20 Alkaline Phosphatase 58 IU/L (42-121) 05/29/22 06:20 Total Creatine Kinase 87 IU/L (22-269) 05/28/22 11:50 Total Protein 6.4 g/dL (6.7-8.2) L 05/29/22 06:20 Albumin 2.5 g/dL (3.2-5.5) L 05/29/22 06:20 Globulin 3.9 g/dL (2.1-4.2) 05/29/22 06:20 Albumin/Globulin Ratio 0.6 (1.0-2.2) L 05/29/22 06:20 Lipase 35 U/L (22-51) 05/29/22 06:20 TSH 2.68 uIU/mL (0.34-5.60) 05/30/22 04:50 Urine Color DARK YELLOW 05/28/22 12:07 Urine Clarity CLEAR (CLEAR) 05/28/22 12:07 Urine pH 6.0 PH (5.0-7.5) 05/28/22 12:07 Ur Specific [place] 1.025 (1.002-1.030) 05/28/22 12:07 Urine Protein 30 mg/dL (NEGATIVE) H 05/28/22 12:07 Urine Glucose (UA) NEGATIVE mg/dL (NEGATIVE) 05/28/22 12:07 Urine Ketones 15 mg/dL (NEGATIVE) H 05/28/22 12:07 Urine Occult Blood LARGE (NEGATIVE) H 05/28/22 12:07 Urine Nitrite NEGATIVE (NEGATIVE) 05/28/22 12:07 Urine Bilirubin NEGATIVE (NEGATIVE) 05/28/22 12:07 Urine Urobilinogen 1 (NORMAL) E.U./dL (NORMAL) 05/28/22 12:07 Ur Leukocyte Esterase NEGATIVE (NEGATIVE) 05/28/22 12:07 Urine RBC TNTC /HPF (0-5) H 05/28/22 12:07 Urine WBC 6-10 /HPF (0-3) H 05/28/22 12:07 Ur Epithelial Cells MOD Transitional /HPF (<= Few) H 05/28/22 12:07 Ur Squamous Epith Cells FEW Squamous (<= Few) 05/28/22 12:07 Urine Bacteria Few /HPF (None Seen) 05/28/22 12:07 Urine Casts 6-10 Hyaline Casts /LPF 05/28/22 12:07 Ur Microscopic Review INDICATED 05/28/22 12:07 Urine Culture Comments NOT INDICATED 05/28/22 12:07 Coronavirus (PCR) NEGATIVE 05/29/22 14:20 - Procedures Procedures: Procedures ENDO RECTUM POLYPECTOMY (04/27/15) ENDOSC POLYPECTOMY OF LG INTEST (04/27/15) EXCISION OF ASCENDING COLON, ENDO, DIAGN (05/02/17) EXCISION OF DESCENDING COLON, ENDO, DIAGN (05/02/17) EXCISION OF LEFT LOWER LEG SKIN, EXTERNAL APPROACH, DIAGN (11/16/20) EXCISION OF TRANSVERSE COLON, ENDO, DIAGN (05/02/17) Sepsis Event Note (H) - Evaluation Current Stage of Sepsis: Ruled out
[2022-08-13] MEDS: MORPHINE IR 15 MG TABLET PO PRN (15:05)
[2022-08-13] MEDS: LIDOCAINE PATCH 5% TOP SCH (15:47)
[2022-08-13] MEDS: ACETAMINOPHEN 325 MG TABLET PO PRN (15:49)
[2022-08-14] MEDS: METHADONE 5 MG TABLET PO SCH ×3 (05:35→21:42)
[2022-08-14] MEDS: polyethylene glycoL 3350 17 GM PACKET PO SCH (07:52)
[2022-08-14] MEDS: MULTIVITAMIN W/MINERALS TABLET PO SCH (07:53)
[2022-08-14] MEDS: SENNA 8.6 MG TABLET PO SCH ×2 (07:53→21:01)
[2022-08-14] MEDS: dexAMETHasone 4 MG TABLET PO SCH (07:53)
[2022-08-14] MEDS: DOCUSATE SODIUM 250 MG CAPSULE PO SCH ×2 (07:53→21:01)
[2022-08-14] MEDS: MORPHINE IR 15 MG TABLET PO SCH ×4 (07:58→20:59)
[2022-08-14] MEDS: ENOXAPARIN 40 MG/0.4 ML SYRINGE SUBQ SCH (08:00)
[2022-08-14] MEDS: LIDOCAINE PATCH 5% TOP SCH (16:12)
[2022-08-14] MEDS: LORazepam 0.5 MG TABLET SL PRN (22:12)
[2022-08-15] MEDS: METHADONE 5 MG TABLET PO SCH ×3 (06:34→21:11)
[2022-08-15] MEDS: ENOXAPARIN 40 MG/0.4 ML SYRINGE SUBQ SCH (08:41)
[2022-08-15] MEDS: SENNA 8.6 MG TABLET PO SCH ×2 (08:41→21:10)
[2022-08-15] MEDS: MORPHINE IR 15 MG TABLET PO SCH ×4 (08:41→21:10)
[2022-08-15] MEDS: polyethylene glycoL 3350 17 GM PACKET PO SCH (08:41)
[2022-08-15] MEDS: dexAMETHasone 4 MG TABLET PO SCH (08:42)
[2022-08-15] MEDS: DOCUSATE SODIUM 250 MG CAPSULE PO SCH ×2 (08:43→21:10)
[2022-08-15] MEDS: MULTIVITAMIN W/MINERALS TABLET PO SCH (08:44)
--- NOTE | 2022-08-15 11:14 | PROVIDER PROGRESS NOTE ---
Assessment/Plan - Problem List (1) Metastatic lung cancer (metastasis from lung to other site) Qualifiers: Qualified Code(s): C34.90 - Malignant neoplasm of unspecified part of unspecified bronchus or lung Assessment/Plan: His pain has worsened the last week, in the rib cage area. No XRay was done as it would likely show more tumor spread into ribs, and would not change ma nagement. We increased immediate release morphine to 30 mg 4 times daily scheduled dose. And continuing immediate release morphine 30 mg every 4 hours as needed. Plan: - Continue Methadone 5mg TID - Increase Morphine IR 30mg QID - Continue Morphine IR 30mg prn - Nursing is trying to balance over-sedation and pain management. 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 3. Cognitive impairment Plan: A court appointed guardian was needed. Social work has been trying to find placement for him, but it cannot be completed until finances are finalized - Current Meds Current Meds: Current Medications Generic Name Dose Route Start Last Admin Trade Name Freq PRN Reason Stop Dose Admin Acetaminophen 650 mg 05/29/22 14:15 08/13/22 15:49 Acetaminophen 325 Mg Tablet PO 650 mg Q4HR PRN Administration Pain 1 to 4, or Fever Dexamethasone 4 mg 08/04/22 08:00 08/15/22 08:42 Dexamethasone 4 Mg Tablet PO 4 mg DAILYWM MICHAELA Administration Docusate Sodium 250 - 500 mg 07/04/22 21:00 08/15/22 08:43 Docusate Sodium 250 Mg Capsule PO 250 mg BID MICHAELA Administration Enoxaparin Sodium 40 mg 05/30/22 09:00 08/15/22 08:41 Enoxaparin 40 Mg/0.4 Ml Syringe SUBQ 40 mg DAILY MICHAELA Administration Lidocaine 1 patch 08/01/22 16:00 08/14/22 16:12 Lidocaine Patch 5% TOP 1 patch 1600 MICHAELA Administration Lorazepam 1 mg 07/13/22 18:33 08/14/22 22:12 Lorazepam 0.5 Mg Tablet SL 1 mg Q4H PRN Administration Anxiety Methadone HCl 5 mg 08/05/22 22:00 08/15/22 06:34 Methadone 5 Mg Tablet PO 5 mg TID MICHAELA Administration Morphine Sulfate 30 mg 08/12/22 10:23 08/13/22 15:05 Morphine Ir 15 Mg Tablet PO 30 mg Q4H PRN Administration Severe Pain Morphine Sulfate 30 mg 08/12/22 13:00 08/15/22 08:41 Morphine Ir 15 Mg Tablet PO 30 mg QID MICHAELA Administration Multi-Ingredient Ointment 1 applic 05/30/22 22:39 08/13/22 05:54 Zinc Oxide 20% Oint 30 Gm Tube TOP 1 applic PRN PRN Administration Skin Care Multivitamins/Minerals 1 tab 05/30/22 11:00 08/15/22 08:44 Multivitamin W/Minerals Tablet PO 1 tab DAILYWM MICHAELA Administration Polyethylene Glycol 17 gm 05/30/22 09:00 08/15/22 08:41 Polyethylene Glycol 3350 17 Gm Packet PO 17 gm DAILY MICHAELA Administration Psyllium Hydrophilic Mucilloid 1 packet 06/21/22 08:53 07/11/22 12:37 Psyllium Packet PO 1 packet DAILY PRN Administration Constipation Senna 8.6 - 17.2 mg 07/04/22 17:00 08/15/22 08:41 Senna 8.6 Mg Tablet PO 8.6 mg BID MICHAELA Administration - Lab Result Fish Bone Diagrams: 07/13/22 08:19 07/13/22 08:19 Subjective - Subjective Patient Reports: Resting Comfortably (Pain meds have been given, he is watching TV) Objective Vital Signs: Vital Signs - 24 hr 08/14/22 08/15/22 15:46 07:28 Temperature 36.4 C L 36.3 C L Heart Rate [ 71 61 Brachial] Respiratory 16 17 Rate Blood Pressure 101/69 110/48 L [Right Brachial artery] O2 Saturation 94 95 Oxygen O2 Source Room air I&O (Last 24 Hrs): Intake and Output Totals x24h 08/13/22 08/14/22 08/15/22 23:59 23:59 23:59 Intake Total 850 1090 240 Output Total 475 450 300 Balance 375 640 -60 General: Alert, Oriented x3, Other (Cachectic frail elderly white male) HEENT: Mucous membr. moist/pink Neck: Supple, No JVD Neuro: Alert, Non Focal, Other (Poor memory) Cardiovascular: Regular rate Respiratory: No respiratory distress Abdomen: Soft Extremities: No edema - Results Results: Laboratory Results WBC 8.4 x10^3/uL (4.8-10.8) 07/13/22 08:19 RBC 3.87 10^6/uL (4.70-6.10) L 07/13/22 08:19 Hgb 9.7 g/dL (14.0-18.0) L 07/13/22 08:19 Hct 32.7 % (42.0-52.0) L 07/13/22 08:19 MCV 84.5 fL (80.0-94.0) 07/13/22 08:19 MCH 25.1 pg (27.0-31.0) L 07/13/22 08:19 MCHC 29.7 g/dL (32.0-36.0) L 07/13/22 08:19 RDW 15.9 % (12.0-15.0) H 07/13/22 08:19 Plt Count 543 10^3/uL (130-450) H 07/13/22 08:19 MPV 8.6 fL (7.4-11.4) 07/13/22 08:19 Neut # (Auto) 5.7 10^3/uL (1.5-6.6) 07/13/22 08:19 Lymph # (Auto) 1.4 10^3/uL (1.5-3.5) L 07/13/22 08:19 [place] # (Auto) 1.0 10^3/uL (0.0-1.0) 07/13/22 08:19 Eos # (Auto) 0.1 10^3/uL (0.0-0.7) 07/13/22 08:19 Baso # (Auto) 0.1 10^3/uL (0.0-0.1) 07/13/22 08:19 Absolute Nucleated RBC 0.00 x10^3/uL 07/13/22 08:19 Nucleated RBC % 0.0 /100WBC 07/13/22 08:19 PT 13.8 secs (9.9-12.6) H 05/30/22 04:50 INR 1.3 (0.8-1.2) H 05/30/22 04:50 Sodium 133 mmol/L (135-145) L 07/13/22 08:19 Potassium 3.9 mmol/L (3.5-5.0) 07/13/22 08:19 Chloride 94 mmol/L (101-111) L 07/13/22 08:19 Carbon Dioxide 27 mmol/L (21-32) 07/13/22 08:19 Anion Gap 12.0 (6-13) 07/13/22 08:19 BUN 18 mg/dL (6-20) 07/13/22 08:19 Creatinine 0.8 mg/dL (0.6-1.2) 07/13/22 08:19 Estimated GFR (MDRD) 93 (>89) 07/13/22 08:19 Glucose 94 mg/dL (70-100) 07/13/22 08:19 Calcium 9.1 mg/dL (8.5-10.3) 07/13/22 08:19 Phosphorus 1.1 mg/dL (2.5-4.6) L 05/30/22 04:50 Magnesium 2.1 mg/dL (1.7-2.8) 06/07/22 05:01 Total Bilirubin 0.8 mg/dL (0.2-1.0) 05/29/22 06:20 AST 20 IU/L (10-42) 05/29/22 06:20 ALT 17 IU/L (10-60) 05/29/22 06:20 Alkaline Phosphatase 58 IU/L (42-121) 05/29/22 06:20 Total Creatine Kinase 87 IU/L (22-269) 05/28/22 11:50 Total Protein 6.4 g/dL (6.7-8.2) L 05/29/22 06:20 Albumin 2.5 g/dL (3.2-5.5) L 05/29/22 06:20 Globulin 3.9 g/dL (2.1-4.2) 05/29/22 06:20 Albumin/Globulin Ratio 0.6 (1.0-2.2) L 05/29/22 06:20 Lipase 35 U/L (22-51) 05/29/22 06:20 TSH 2.68 uIU/mL (0.34-5.60) 05/30/22 04:50 Urine Color DARK YELLOW 05/28/22 12:07 Urine Clarity CLEAR (CLEAR) 05/28/22 12:07 Urine pH 6.0 PH (5.0-7.5) 05/28/22 12:07 Ur Specific [place] 1.025 (1.002-1.030) 05/28/22 12:07 Urine Protein 30 mg/dL (NEGATIVE) H 05/28/22 12:07 Urine Glucose (UA) NEGATIVE mg/dL (NEGATIVE) 05/28/22 12:07 Urine Ketones 15 mg/dL (NEGATIVE) H 05/28/22 12:07 Urine Occult Blood LARGE (NEGATIVE) H 05/28/22 12:07 Urine Nitrite NEGATIVE (NEGATIVE) 05/28/22 12:07 Urine Bilirubin NEGATIVE (NEGATIVE) 05/28/22 12:07 Urine Urobilinogen 1 (NORMAL) E.U./dL (NORMAL) 05/28/22 12:07 Ur Leukocyte Esterase NEGATIVE (NEGATIVE) 05/28/22 12:07 Urine RBC TNTC /HPF (0-5) H 05/28/22 12:07 Urine WBC 6-10 /HPF (0-3) H 05/28/22 12:07 Ur Epithelial Cells MOD Transitional /HPF (<= Few) H 05/28/22 12:07 Ur Squamous Epith Cells FEW Squamous (<= Few) 05/28/22 12:07 Urine Bacteria Few /HPF (None Seen) 05/28/22 12:07 Urine Casts 6-10 Hyaline Casts /LPF 05/28/22 12:07 Ur Microscopic Review INDICATED 05/28/22 12:07 Urine Culture Comments NOT INDICATED 05/28/22 12:07 Coronavirus (PCR) NEGATIVE 05/29/22 14:20 - Procedures Procedures: Procedures ENDO RECTUM POLYPECTOMY (04/27/15) ENDOSC POLYPECTOMY OF LG INTEST (04/27/15) EXCISION OF ASCENDING COLON, ENDO, DIAGN (05/02/17) EXCISION OF DESCENDING COLON, ENDO, DIAGN (05/02/17) EXCISION OF LEFT LOWER LEG SKIN, EXTERNAL APPROACH, DIAGN (11/16/20) EXCISION OF TRANSVERSE COLON, ENDO, DIAGN (05/02/17) Sepsis Event Note (H) - Evaluation Current Stage of Sepsis: Ruled out
[2022-08-15] MEDS: LIDOCAINE PATCH 5% TOP SCH (17:07)
[2022-08-16] MEDS: MORPHINE IR 15 MG TABLET PO PRN (04:26)
[2022-08-16] MEDS: METHADONE 5 MG TABLET PO SCH ×3 (05:36→21:47)
[2022-08-16] MEDS: DOCUSATE SODIUM 250 MG CAPSULE PO SCH ×2 (08:39→21:47)
[2022-08-16] MEDS: MORPHINE IR 15 MG TABLET PO SCH ×4 (08:39→21:48)
[2022-08-16] MEDS: dexAMETHasone 4 MG TABLET PO SCH (08:39)
[2022-08-16] MEDS: polyethylene glycoL 3350 17 GM PACKET PO SCH (08:40)
[2022-08-16] MEDS: SENNA 8.6 MG TABLET PO SCH ×2 (08:40→21:47)
[2022-08-16] MEDS: ENOXAPARIN 40 MG/0.4 ML SYRINGE SUBQ SCH (08:40)
[2022-08-16] MEDS: MULTIVITAMIN W/MINERALS TABLET PO SCH (08:42)
[2022-08-16] MEDS: LIDOCAINE PATCH 5% TOP SCH (16:18)
--- NOTE | 2022-08-16 18:57 | PROVIDER PROGRESS NOTE ---
Assessment/Plan - Problem List (1) Metastatic lung cancer (metastasis from lung to other site) Qualifiers: Qualified Code(s): C34.90 - Malignant neoplasm of unspecified part of unspecified bronchus or lung Assessment/Plan: His pain has worsened the last week, in the rib cage area. No XRay was done as it would likely show more tumor spread into ribs, and would not change ma nagement. We increased immediate release morphine to 30 mg 4 times daily scheduled dose. And continuing immediate release morphine 30 mg every 4 hours as needed. Plan: - Continue Methadone 5mg TID - Increase Morphine IR 30mg QID - Continue Morphine IR 30mg prn - Nursing is trying to balance over-sedation and pain management. 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 3. Cognitive impairment Plan: A court appointed guardian was needed. Social work has been trying to find placement for him, but it cannot be completed until finances are finalized - Current Meds Current Meds: Current Medications Generic Name Dose Route Start Last Admin Trade Name Freq PRN Reason Stop Dose Admin Acetaminophen 650 mg 05/29/22 14:15 08/13/22 15:49 Acetaminophen 325 Mg Tablet PO 650 mg Q4HR PRN Administration Pain 1 to 4, or Fever Dexamethasone 4 mg 08/04/22 08:00 08/16/22 08:39 Dexamethasone 4 Mg Tablet PO 4 mg DAILYWM MICHAELA Administration Docusate Sodium 250 - 500 mg 07/04/22 21:00 08/16/22 08:39 Docusate Sodium 250 Mg Capsule PO 250 mg BID MICHAELA Administration Enoxaparin Sodium 40 mg 05/30/22 09:00 08/16/22 08:40 Enoxaparin 40 Mg/0.4 Ml Syringe SUBQ 40 mg DAILY MICHAELA Administration Lidocaine 1 patch 08/01/22 16:00 08/16/22 16:18 Lidocaine Patch 5% TOP 1 patch 1600 MICHAELA Administration Lorazepam 1 mg 07/13/22 18:33 08/14/22 22:12 Lorazepam 0.5 Mg Tablet SL 1 mg Q4H PRN Administration Anxiety Methadone HCl 5 mg 08/05/22 22:00 08/16/22 13:53 Methadone 5 Mg Tablet PO 5 mg TID MICHAELA Administration Morphine Sulfate 30 mg 08/12/22 10:23 08/16/22 04:26 Morphine Ir 15 Mg Tablet PO 30 mg Q4H PRN Administration Severe Pain Morphine Sulfate 30 mg 08/12/22 13:00 08/16/22 16:18 Morphine Ir 15 Mg Tablet PO 30 mg QID MICHAELA Administration Multi-Ingredient Ointment 1 applic 05/30/22 22:39 08/13/22 05:54 Zinc Oxide 20% Oint 30 Gm Tube TOP 1 applic PRN PRN Administration Skin Care Multivitamins/Minerals 1 tab 05/30/22 11:00 08/16/22 08:42 Multivitamin W/Minerals Tablet PO 1 tab DAILYWM MICHAELA Administration Polyethylene Glycol 17 gm 05/30/22 09:00 08/16/22 08:40 Polyethylene Glycol 3350 17 Gm Packet PO Not Given DAILY MICHAELA Psyllium Hydrophilic Mucilloid 1 packet 06/21/22 08:53 07/11/22 12:37 Psyllium Packet PO 1 packet DAILY PRN Administration Constipation Senna 8.6 - 17.2 mg 07/04/22 17:00 08/16/22 08:40 Senna 8.6 Mg Tablet PO Not Given BID MICHAELA - Lab Result Fish Bone Diagrams: 07/13/22 08:19 07/13/22 08:19 Subjective - Subjective Patient Reports: Pain (in R axillary area) Objective Vital Signs: Vital Signs - 24 hr 08/16/22 07:42 Temperature 36.6 C Heart Rate [ 67 Brachial] Respiratory 18 Rate Blood Pressure 118/53 L [Left Brachial artery] Blood Pressure 76/49 L [Right Brachial artery] O2 Saturation 96 Oxygen O2 Source Room air I&O (Last 24 Hrs): Intake and Output Totals x24h 08/14/22 08/15/22 08/16/22 23:59 23:59 23:59 Intake Total 1090 540 60 Output Total 450 675 125 Balance 640 -135 -65 General: Alert, Oriented x3, Other (Cachexia) HEENT: Mucous membr. moist/pink Neck: Supple, No JVD Neuro: Alert, Non Focal, Other (Poor memory) Cardiovascular: Regular rate Respiratory: No respiratory distress Abdomen: Soft Extremities: No edema - Results Results: Laboratory Results WBC 8.4 x10^3/uL (4.8-10.8) 07/13/22 08:19 RBC 3.87 10^6/uL (4.70-6.10) L 07/13/22 08:19 Hgb 9.7 g/dL (14.0-18.0) L 07/13/22 08:19 Hct 32.7 % (42.0-52.0) L 07/13/22 08:19 MCV 84.5 fL (80.0-94.0) 07/13/22 08:19 MCH 25.1 pg (27.0-31.0) L 07/13/22 08:19 MCHC 29.7 g/dL (32.0-36.0) L 07/13/22 08:19 RDW 15.9 % (12.0-15.0) H 07/13/22 08:19 Plt Count 543 10^3/uL (130-450) H 07/13/22 08:19 MPV 8.6 fL (7.4-11.4) 07/13/22 08:19 Neut # (Auto) 5.7 10^3/uL (1.5-6.6) 07/13/22 08:19 Lymph # (Auto) 1.4 10^3/uL (1.5-3.5) L 07/13/22 08:19 [place] # (Auto) 1.0 10^3/uL (0.0-1.0) 07/13/22 08:19 Eos # (Auto) 0.1 10^3/uL (0.0-0.7) 07/13/22 08:19 Baso # (Auto) 0.1 10^3/uL (0.0-0.1) 07/13/22 08:19 Absolute Nucleated RBC 0.00 x10^3/uL 07/13/22 08:19 Nucleated RBC % 0.0 /100WBC 07/13/22 08:19 PT 13.8 secs (9.9-12.6) H 05/30/22 04:50 INR 1.3 (0.8-1.2) H 05/30/22 04:50 Sodium 133 mmol/L (135-145) L 07/13/22 08:19 Potassium 3.9 mmol/L (3.5-5.0) 07/13/22 08:19 Chloride 94 mmol/L (101-111) L 07/13/22 08:19 Carbon Dioxide 27 mmol/L (21-32) 07/13/22 08:19 Anion Gap 12.0 (6-13) 07/13/22 08:19 BUN 18 mg/dL (6-20) 07/13/22 08:19 Creatinine 0.8 mg/dL (0.6-1.2) 07/13/22 08:19 Estimated GFR (MDRD) 93 (>89) 07/13/22 08:19 Glucose 94 mg/dL (70-100) 07/13/22 08:19 Calcium 9.1 mg/dL (8.5-10.3) 07/13/22 08:19 Phosphorus 1.1 mg/dL (2.5-4.6) L 05/30/22 04:50 Magnesium 2.1 mg/dL (1.7-2.8) 06/07/22 05:01 Total Bilirubin 0.8 mg/dL (0.2-1.0) 05/29/22 06:20 AST 20 IU/L (10-42) 05/29/22 06:20 ALT 17 IU/L (10-60) 05/29/22 06:20 Alkaline Phosphatase 58 IU/L (42-121) 05/29/22 06:20 Total Creatine Kinase 87 IU/L (22-269) 05/28/22 11:50 Total Protein 6.4 g/dL (6.7-8.2) L 05/29/22 06:20 Albumin 2.5 g/dL (3.2-5.5) L 05/29/22 06:20 Globulin 3.9 g/dL (2.1-4.2) 05/29/22 06:20 Albumin/Globulin Ratio 0.6 (1.0-2.2) L 05/29/22 06:20 Lipase 35 U/L (22-51) 05/29/22 06:20 TSH 2.68 uIU/mL (0.34-5.60) 05/30/22 04:50 Urine Color DARK YELLOW 05/28/22 12:07 Urine Clarity CLEAR (CLEAR) 05/28/22 12:07 Urine pH 6.0 PH (5.0-7.5) 05/28/22 12:07 Ur Specific [place] 1.025 (1.002-1.030) 05/28/22 12:07 Urine Protein 30 mg/dL (NEGATIVE) H 05/28/22 12:07 Urine Glucose (UA) NEGATIVE mg/dL (NEGATIVE) 05/28/22 12:07 Urine Ketones 15 mg/dL (NEGATIVE) H 05/28/22 12:07 Urine Occult Blood LARGE (NEGATIVE) H 05/28/22 12:07 Urine Nitrite NEGATIVE (NEGATIVE) 05/28/22 12:07 Urine Bilirubin NEGATIVE (NEGATIVE) 05/28/22 12:07 Urine Urobilinogen 1 (NORMAL) E.U./dL (NORMAL) 05/28/22 12:07 Ur Leukocyte Esterase NEGATIVE (NEGATIVE) 05/28/22 12:07 Urine RBC TNTC /HPF (0-5) H 05/28/22 12:07 Urine WBC 6-10 /HPF (0-3) H 05/28/22 12:07 Ur Epithelial Cells MOD Transitional /HPF (<= Few) H 05/28/22 12:07 Ur Squamous Epith Cells FEW Squamous (<= Few) 05/28/22 12:07 Urine Bacteria Few /HPF (None Seen) 05/28/22 12:07 Urine Casts 6-10 Hyaline Casts /LPF 05/28/22 12:07 Ur Microscopic Review INDICATED 05/28/22 12:07 Urine Culture Comments NOT INDICATED 05/28/22 12:07 Coronavirus (PCR) NEGATIVE 05/29/22 14:20 - Procedures Procedures: Procedures ENDO RECTUM POLYPECTOMY (04/27/15) ENDOSC POLYPECTOMY OF LG INTEST (04/27/15) EXCISION OF ASCENDING COLON, ENDO, DIAGN (05/02/17) EXCISION OF DESCENDING COLON, ENDO, DIAGN (05/02/17) EXCISION OF LEFT LOWER LEG SKIN, EXTERNAL APPROACH, DIAGN (11/16/20) EXCISION OF TRANSVERSE COLON, ENDO, DIAGN (05/02/17) Sepsis Event Note (H) - Evaluation Current Stage of Sepsis: Ruled out
[2022-08-16] MEDS: LORazepam 0.5 MG TABLET SL PRN (22:44)
[2022-08-17] MEDS: METHADONE 5 MG TABLET PO SCH ×3 (06:39→21:40)
[2022-08-17] MEDS: MULTIVITAMIN W/MINERALS TABLET PO SCH (08:58)
[2022-08-17] MEDS: dexAMETHasone 4 MG TABLET PO SCH (08:58)
[2022-08-17] MEDS: ENOXAPARIN 40 MG/0.4 ML SYRINGE SUBQ SCH (08:58)
[2022-08-17] MEDS: MORPHINE IR 15 MG TABLET PO SCH ×4 (08:58→21:41)
[2022-08-17] MEDS: SENNA 8.6 MG TABLET PO SCH ×2 (08:58→21:40)
[2022-08-17] MEDS: DOCUSATE SODIUM 250 MG CAPSULE PO SCH ×2 (08:58→21:41)
[2022-08-17] MEDS: polyethylene glycoL 3350 17 GM PACKET PO SCH (08:59)
--- NOTE | 2022-08-17 13:27 | PROVIDER PROGRESS NOTE ---
Assessment/Plan - Problem List (1) Metastatic lung cancer (metastasis from lung to other site) Qualifiers: Qualified Code(s): C34.90 - Malignant neoplasm of unspecified part of unspecified bronchus or lung Assessment/Plan: His pain has worsened the last week, in the rib cage area. No XRay was done as it would likely show more tumor spread into ribs, and would not change ma nagement. We increased immediate release morphine to 30 mg 4 times daily scheduled dose. And continuing immediate release morphine 30 mg every 4 hours as needed. He is more sleepy since yesterday and has less appetite, likely from the higher narcotics Plan: - Will increase Methadone 5mg TID to 7.5 TID today for the increased pain, as was recommended by organizational consultant several weeks ago - Methadone increase may allow a lower Morphine IR dose than 30mg QID. Will decrease that to 20 mg TID tomorrow. - Continue Morphine IR 30mg prn - Nursing is trying to balance over-sedation and pain management. 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 3. Cognitive impairment Plan: A court appointed guardian was needed. Currently this patient has been assigned a Court Visitor, not a Court appointed Guardian yet. Social work has been trying to find placement for him, but it cannot be completed until finances are finalized He will need a POLST form fully executed per , before he can go to a facility. Will reach out to the Court Visitor, Octavio, at [phone], who is allowed to give consent. - Current Meds Current Meds: Current Medications Generic Name Dose Route Start Last Admin Trade Name Freq PRN Reason Stop Dose Admin Acetaminophen 650 mg 05/29/22 14:15 08/13/22 15:49 Acetaminophen 325 Mg Tablet PO 650 mg Q4HR PRN Administration Pain 1 to 4, or Fever Dexamethasone 4 mg 08/04/22 08:00 08/17/22 08:58 Dexamethasone 4 Mg Tablet PO 4 mg DAILYWM MICHAELA Administration Docusate Sodium 250 - 500 mg 07/04/22 21:00 08/17/22 08:58 Docusate Sodium 250 Mg Capsule PO 250 mg BID MICHAELA Administration Enoxaparin Sodium 40 mg 05/30/22 09:00 08/17/22 08:58 Enoxaparin 40 Mg/0.4 Ml Syringe SUBQ 40 mg DAILY MICHAELA Administration Lidocaine 1 patch 08/01/22 16:00 08/16/22 16:18 Lidocaine Patch 5% TOP 1 patch 1600 MICHAELA Administration Lorazepam 1 mg 07/13/22 18:33 08/16/22 22:44 Lorazepam 0.5 Mg Tablet SL 1 mg Q4H PRN Administration Anxiety Morphine Sulfate 30 mg 08/12/22 10:23 08/16/22 04:26 Morphine Ir 15 Mg Tablet PO 30 mg Q4H PRN Administration Severe Pain Morphine Sulfate 30 mg 08/12/22 13:00 08/17/22 12:49 Morphine Ir 15 Mg Tablet PO 30 mg QID MICHAELA Administration Multi-Ingredient Ointment 1 applic 05/30/22 22:39 08/13/22 05:54 Zinc Oxide 20% Oint 30 Gm Tube TOP 1 applic PRN PRN Administration Skin Care Multivitamins/Minerals 1 tab 05/30/22 11:00 08/17/22 08:58 Multivitamin W/Minerals Tablet PO 1 tab DAILYWM MICHAELA Administration Polyethylene Glycol 17 gm 05/30/22 09:00 08/17/22 08:59 Polyethylene Glycol 3350 17 Gm Packet PO Not Given DAILY [facility] Psyllium Hydrophilic Mucilloid 1 packet 06/21/22 08:53 07/11/22 12:37 Psyllium Packet PO 1 packet DAILY PRN Administration Constipation Senna 8.6 - 17.2 mg 07/04/22 17:00 08/17/22 08:58 Senna 8.6 Mg Tablet PO 8.6 mg BID MICHAELA Administration - Lab Result Fish Bone Diagrams: 07/13/22 08:19 07/13/22 08:19 - Additional Planning My Orders: My Active Orders 08/17/22 14:00 Methadone [Methadone Hcl] 7.5 mg PO TID Subjective - Subjective Nursing Reports: Other (More sleepy and slightly more confused, per his RN.) Objective Vital Signs: Vital Signs - 24 hr 08/16/22 08/17/22 21:00 07:49 Temperature 36.3 C L 36.3 C L Heart Rate [ 89 57 L Brachial] Respiratory 16 16 Rate Blood Pressure 101/43 L [Left Brachial artery] Blood Pressure 118/64 78/43 L [Right Brachial artery] O2 Saturation 95 92 Oxygen O2 Source Room air I&O (Last 24 Hrs): Intake and Output Totals x24h 08/15/22 08/16/22 08/17/22 23:59 23:59 23:59 Intake Total 540 210 120 Output Total 675 125 Balance -135 85 120 General: Other (Asleep but awakens to name) HEENT: Mucous membr. moist/pink, Other (Cachectic) Neck: Supple, No JVD Neuro: Alert (but more sluggish today), Non Focal, Other (Poor memory) Cardiovascular: Regular rate Respiratory: No respiratory distress Abdomen: Soft Extremities: No edema - Results Results: Laboratory Results WBC 8.4 x10^3/uL (4.8-10.8) 07/13/22 08:19 RBC 3.87 10^6/uL (4.70-6.10) L 07/13/22 08:19 Hgb 9.7 g/dL (14.0-18.0) L 07/13/22 08:19 Hct 32.7 % (42.0-52.0) L 07/13/22 08:19 MCV 84.5 fL (80.0-94.0) 07/13/22 08:19 MCH 25.1 pg (27.0-31.0) L 07/13/22 08:19 MCHC 29.7 g/dL (32.0-36.0) L 07/13/22 08:19 RDW 15.9 % (12.0-15.0) H 07/13/22 08:19 Plt Count 543 10^3/uL (130-450) H 07/13/22 08:19 MPV 8.6 fL (7.4-11.4) 07/13/22 08:19 Neut # (Auto) 5.7 10^3/uL (1.5-6.6) 07/13/22 08:19 Lymph # (Auto) 1.4 10^3/uL (1.5-3.5) L 07/13/22 08:19 [place] # (Auto) 1.0 10^3/uL (0.0-1.0) 07/13/22 08:19 Eos # (Auto) 0.1 10^3/uL (0.0-0.7) 07/13/22 08:19 Baso # (Auto) 0.1 10^3/uL (0.0-0.1) 07/13/22 08:19 Absolute Nucleated RBC 0.00 x10^3/uL 07/13/22 08:19 Nucleated RBC % 0.0 /100WBC 07/13/22 08:19 PT 13.8 secs (9.9-12.6) H 05/30/22 04:50 INR 1.3 (0.8-1.2) H 05/30/22 04:50 Sodium 133 mmol/L (135-145) L 07/13/22 08:19 Potassium 3.9 mmol/L (3.5-5.0) 07/13/22 08:19 Chloride 94 mmol/L (101-111) L 07/13/22 08:19 Carbon Dioxide 27 mmol/L (21-32) 07/13/22 08:19 Anion Gap 12.0 (6-13) 07/13/22 08:19 BUN 18 mg/dL (6-20) 07/13/22 08:19 Creatinine 0.8 mg/dL (0.6-1.2) 07/13/22 08:19 Estimated GFR (MDRD) 93 (>89) 07/13/22 08:19 Glucose 94 mg/dL (70-100) 07/13/22 08:19 Calcium 9.1 mg/dL (8.5-10.3) 07/13/22 08:19 Phosphorus 1.1 mg/dL (2.5-4.6) L 05/30/22 04:50 Magnesium 2.1 mg/dL (1.7-2.8) 06/07/22 05:01 Total Bilirubin 0.8 mg/dL (0.2-1.0) 05/29/22 06:20 AST 20 IU/L (10-42) 05/29/22 06:20 ALT 17 IU/L (10-60) 05/29/22 06:20 Alkaline Phosphatase 58 IU/L (42-121) 05/29/22 06:20 Total Creatine Kinase 87 IU/L (22-269) 05/28/22 11:50 Total Protein 6.4 g/dL (6.7-8.2) L 05/29/22 06:20 Albumin 2.5 g/dL (3.2-5.5) L 05/29/22 06:20 Globulin 3.9 g/dL (2.1-4.2) 05/29/22 06:20 Albumin/Globulin Ratio 0.6 (1.0-2.2) L 05/29/22 06:20 Lipase 35 U/L (22-51) 05/29/22 06:20 TSH 2.68 uIU/mL (0.34-5.60) 05/30/22 04:50 Urine Color DARK YELLOW 05/28/22 12:07 Urine Clarity CLEAR (CLEAR) 05/28/22 12:07 Urine pH 6.0 PH (5.0-7.5) 05/28/22 12:07 Ur Specific [place] 1.025 (1.002-1.030) 05/28/22 12:07 Urine Protein 30 mg/dL (NEGATIVE) H 05/28/22 12:07 Urine Glucose (UA) NEGATIVE mg/dL (NEGATIVE) 05/28/22 12:07 Urine Ketones 15 mg/dL (NEGATIVE) H 05/28/22 12:07 Urine Occult Blood LARGE (NEGATIVE) H 05/28/22 12:07 Urine Nitrite NEGATIVE (NEGATIVE) 05/28/22 12:07 Urine Bilirubin NEGATIVE (NEGATIVE) 05/28/22 12:07 Urine Urobilinogen 1 (NORMAL) E.U./dL (NORMAL) 05/28/22 12:07 Ur Leukocyte Esterase NEGATIVE (NEGATIVE) 05/28/22 12:07 Urine RBC TNTC /HPF (0-5) H 05/28/22 12:07 Urine WBC 6-10 /HPF (0-3) H 05/28/22 12:07 Ur Epithelial Cells MOD Transitional /HPF (<= Few) H 05/28/22 12:07 Ur Squamous Epith Cells FEW Squamous (<= Few) 05/28/22 12:07 Urine Bacteria Few /HPF (None Seen) 05/28/22 12:07 Urine Casts 6-10 Hyaline Casts /LPF 05/28/22 12:07 Ur Microscopic Review INDICATED 05/28/22 12:07 Urine Culture Comments NOT INDICATED 05/28/22 12:07 Coronavirus (PCR) NEGATIVE 05/29/22 14:20 - Procedures Procedures: Procedures ENDO RECTUM POLYPECTOMY (04/27/15) ENDOSC POLYPECTOMY OF LG INTEST (04/27/15) EXCISION OF ASCENDING COLON, ENDO, DIAGN (05/02/17) EXCISION OF DESCENDING COLON, ENDO, DIAGN (05/02/17) EXCISION OF LEFT LOWER LEG SKIN, EXTERNAL APPROACH, DIAGN (11/16/20) EXCISION OF TRANSVERSE COLON, ENDO, DIAGN (05/02/17) Sepsis Event Note (H) - Evaluation Current Stage of Sepsis: Ruled out
[2022-08-17] MEDS: LIDOCAINE PATCH 5% TOP SCH (17:07)
[2022-08-18] MEDS: METHADONE 5 MG TABLET PO SCH ×3 (06:41→22:13)
[2022-08-18] MEDS: MORPHINE IR 15 MG TABLET PO SCH ×3 (07:18→22:12)
[2022-08-18] MEDS: dexAMETHasone 4 MG TABLET PO SCH (09:17)
[2022-08-18] MEDS: SENNA 8.6 MG TABLET PO SCH ×2 (09:17→22:13)
[2022-08-18] MEDS: MULTIVITAMIN W/MINERALS TABLET PO SCH (09:17)
[2022-08-18] MEDS: polyethylene glycoL 3350 17 GM PACKET PO SCH (09:17)
[2022-08-18] MEDS: ENOXAPARIN 40 MG/0.4 ML SYRINGE SUBQ SCH (09:17)
[2022-08-18] MEDS: DOCUSATE SODIUM 250 MG CAPSULE PO SCH ×2 (09:18→22:13)
[2022-08-18] MEDS: LIDOCAINE PATCH 5% TOP SCH ×2 (18:15→18:18)
--- NOTE | 2022-08-18 18:25 | PROVIDER PROGRESS NOTE ---
Assessment/Plan - Problem List (1) Metastatic lung cancer (metastasis from lung to other site) Qualifiers: Qualified Code(s): C34.90 - Malignant neoplasm of unspecified part of unspecified bronchus or lung Assessment/Plan: His pain had worsened the last week, in the rib cage area. No XRay was done as it would likely show more tumor spread into ribs, and would not change ma nagement. We increased immediate release morphine to 30 mg 4 times daily scheduled dose, and continued immediate release morphine 30 mg every 4 hours as needed. He was more sleepy for 2 days and had less appetite, likely from the higher narcotics. With lower MS he is more alert today, yet pain is controlled with higher Methadone Plan: - Cont the increased Methadone 7.5 TID started on 08/17 for the increased pain, as was recommended by bilingual sales consultant several weeks ago - That Methadone increase did allow a lower Morphine IR dose than 30mg QID. Will continue the Methadone IR at 20 mg TID started today. - Continue Morphine IR 30mg prn - Nursing is trying to balance over-sedation and pain management. 2. 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 3. Cognitive impairment Plan: A court appointed guardian was needed. Currently this patient has been assigned a Court Visitor, not a Court appointed Guardian yet. Social work has been trying to find placement for him, but it cannot be completed until finances are finalized He needs a POLST form fully executed, per , before he can go to a facility. Plan: Today I did reach out and spoke to his assigned Court Visitor, Octavio Hernandez, at [phone], who gave consent. I completed the POLST form. The call was witnessed and form signed by today's RN Kwasi Rodriguez. POLST form given to [facility] ALEN Anderson and a copy was scanned into this EMR. - Current Meds Current Meds: Current Medications Generic Name Dose Route Start Last Admin Trade Name Freq PRN Reason Stop Dose Admin Acetaminophen 650 mg 05/29/22 14:15 08/13/22 15:49 Acetaminophen 325 Mg Tablet PO 650 mg Q4HR PRN Administration Pain 1 to 4, or Fever Dexamethasone 4 mg 08/04/22 08:00 08/18/22 09:17 Dexamethasone 4 Mg Tablet PO 4 mg DAILYWM MICHAELA Administration Docusate Sodium 250 - 500 mg 07/04/22 21:00 08/18/22 09:18 Docusate Sodium 250 Mg Capsule PO Not Given BID MICHAELA Enoxaparin Sodium 40 mg 05/30/22 09:00 08/18/22 09:17 Enoxaparin 40 Mg/0.4 Ml Syringe SUBQ 40 mg DAILY MICHAELA Administration Lidocaine 1 patch 08/01/22 16:00 08/18/22 18:18 Lidocaine Patch 5% TOP Not Given 1600 MICHAELA Lorazepam 1 mg 07/13/22 18:33 08/16/22 22:44 Lorazepam 0.5 Mg Tablet SL 1 mg Q4H PRN Administration Anxiety Methadone HCl 7.5 mg 08/17/22 14:00 08/18/22 13:56 Methadone 5 Mg Tablet PO 7.5 mg TID MICHAELA Administration Morphine Sulfate 30 mg 08/12/22 10:23 08/16/22 04:26 Morphine Ir 15 Mg Tablet PO 30 mg Q4H PRN Administration Severe Pain Morphine Sulfate 22.5 mg 08/18/22 07:00 08/18/22 13:57 Morphine Ir 15 Mg Tablet PO 22.5 mg TID MICHAELA Administration Multi-Ingredient Ointment 1 applic 05/30/22 22:39 08/13/22 05:54 Zinc Oxide 20% Oint 30 Gm Tube TOP 1 applic PRN PRN Administration Skin Care Multivitamins/Minerals 1 tab 05/30/22 11:00 08/18/22 09:17 Multivitamin W/Minerals Tablet PO Not Given DAILYWM [facility] Polyethylene Glycol 17 gm 05/30/22 09:00 08/18/22 09:17 Polyethylene Glycol 3350 17 Gm Packet PO 17 gm DAILY MICHAELA Administration Psyllium Hydrophilic Mucilloid 1 packet 06/21/22 08:53 07/11/22 12:37 Psyllium Packet PO 1 packet DAILY PRN Administration Constipation Senna 8.6 - 17.2 mg 07/04/22 17:00 08/18/22 09:17 Senna 8.6 Mg Tablet PO 8.6 mg BID [facility] Administration - Lab Result Fish Bone Diagrams: 07/13/22 08:19 07/13/22 08:19 - Additional Planning My Orders: My Active Orders 08/18/22 07:00 Morphine Ir [Ms Ir] 22.5 mg PO TID Subjective - Subjective Patient Reports: Resting Comfortably Objective Vital Signs: Vital Signs - 24 hr 08/17/22 08/18/22 20:42 08:05 Temperature 36.3 C L 36.5 C Heart Rate [ 60 71 Brachial] Respiratory 16 18 Rate Blood Pressure 124/46 L [Left Brachial artery] Blood Pressure 113/54 L 86/41 L [Right Brachial artery] O2 Saturation 94 96 Oxygen O2 Source Room air I&O (Last 24 Hrs): Intake and Output Totals x24h 08/16/22 08/17/22 08/18/22 23:59 23:59 23:59 Intake Total 210 235 70 Output Total 125 125 300 Balance 85 110 -230 General: Other (Weak and lethargic. Cachectic.) HEENT: Mucous membr. moist/pink Neck: Supple Neuro: Alert Cardiovascular: Regular rate Respiratory: No respiratory distress Abdomen: Soft Extremities: No edema - Results Results: Laboratory Results WBC 8.4 x10^3/uL (4.8-10.8) 07/13/22 08:19 RBC 3.87 10^6/uL (4.70-6.10) L 07/13/22 08:19 Hgb 9.7 g/dL (14.0-18.0) L 07/13/22 08:19 Hct 32.7 % (42.0-52.0) L 07/13/22 08:19 MCV 84.5 fL (80.0-94.0) 07/13/22 08:19 MCH 25.1 pg (27.0-31.0) L 07/13/22 08:19 MCHC 29.7 g/dL (32.0-36.0) L 07/13/22 08:19 RDW 15.9 % (12.0-15.0) H 07/13/22 08:19 Plt Count 543 10^3/uL (130-450) H 07/13/22 08:19 MPV 8.6 fL (7.4-11.4) 07/13/22 08:19 Neut # (Auto) 5.7 10^3/uL (1.5-6.6) 07/13/22 08:19 Lymph # (Auto) 1.4 10^3/uL (1.5-3.5) L 07/13/22 08:19 [place] # (Auto) 1.0 10^3/uL (0.0-1.0) 07/13/22 08:19 Eos # (Auto) 0.1 10^3/uL (0.0-0.7) 07/13/22 08:19 Baso # (Auto) 0.1 10^3/uL (0.0-0.1) 07/13/22 08:19 Absolute Nucleated RBC 0.00 x10^3/uL 07/13/22 08:19 Nucleated RBC % 0.0 /100WBC 07/13/22 08:19 PT 13.8 secs (9.9-12.6) H 05/30/22 04:50 INR 1.3 (0.8-1.2) H 05/30/22 04:50 Sodium 133 mmol/L (135-145) L 07/13/22 08:19 Potassium 3.9 mmol/L (3.5-5.0) 07/13/22 08:19 Chloride 94 mmol/L (101-111) L 07/13/22 08:19 Carbon Dioxide 27 mmol/L (21-32) 07/13/22 08:19 Anion Gap 12.0 (6-13) 07/13/22 08:19 BUN 18 mg/dL (6-20) 07/13/22 08:19 Creatinine 0.8 mg/dL (0.6-1.2) 07/13/22 08:19 Estimated GFR (MDRD) 93 (>89) 07/13/22 08:19 Glucose 94 mg/dL (70-100) 07/13/22 08:19 Calcium 9.1 mg/dL (8.5-10.3) 07/13/22 08:19 Phosphorus 1.1 mg/dL (2.5-4.6) L 05/30/22 04:50 Magnesium 2.1 mg/dL (1.7-2.8) 06/07/22 05:01 Total Bilirubin 0.8 mg/dL (0.2-1.0) 05/29/22 06:20 AST 20 IU/L (10-42) 05/29/22 06:20 ALT 17 IU/L (10-60) 05/29/22 06:20 Alkaline Phosphatase 58 IU/L (42-121) 05/29/22 06:20 Total Creatine Kinase 87 IU/L (22-269) 05/28/22 11:50 Total Protein 6.4 g/dL (6.7-8.2) L 05/29/22 06:20 Albumin 2.5 g/dL (3.2-5.5) L 05/29/22 06:20 Globulin 3.9 g/dL (2.1-4.2) 05/29/22 06:20 Albumin/Globulin Ratio 0.6 (1.0-2.2) L 05/29/22 06:20 Lipase 35 U/L (22-51) 05/29/22 06:20 TSH 2.68 uIU/mL (0.34-5.60) 05/30/22 04:50 Urine Color DARK YELLOW 05/28/22 12:07 Urine Clarity CLEAR (CLEAR) 05/28/22 12:07 Urine pH 6.0 PH (5.0-7.5) 05/28/22 12:07 Ur Specific [place] 1.025 (1.002-1.030) 05/28/22 12:07 Urine Protein 30 mg/dL (NEGATIVE) H 05/28/22 12:07 Urine Glucose (UA) NEGATIVE mg/dL (NEGATIVE) 05/28/22 12:07 Urine Ketones 15 mg/dL (NEGATIVE) H 05/28/22 12:07 Urine Occult Blood LARGE (NEGATIVE) H 05/28/22 12:07 Urine Nitrite NEGATIVE (NEGATIVE) 05/28/22 12:07 Urine Bilirubin NEGATIVE (NEGATIVE) 05/28/22 12:07 Urine Urobilinogen 1 (NORMAL) E.U./dL (NORMAL) 05/28/22 12:07 Ur Leukocyte Esterase NEGATIVE (NEGATIVE) 05/28/22 12:07 Urine RBC TNTC /HPF (0-5) H 05/28/22 12:07 Urine WBC 6-10 /HPF (0-3) H 05/28/22 12:07 Ur Epithelial Cells MOD Transitional /HPF (<= Few) H 05/28/22 12:07 Ur Squamous Epith Cells FEW Squamous (<= Few) 05/28/22 12:07 Urine Bacteria Few /HPF (None Seen) 05/28/22 12:07 Urine Casts 6-10 Hyaline Casts /LPF 05/28/22 12:07 Ur Microscopic Review INDICATED 05/28/22 12:07 Urine Culture Comments NOT INDICATED 05/28/22 12:07 Coronavirus (PCR) NEGATIVE 05/29/22 14:20 - Procedures Procedures: Procedures ENDO RECTUM POLYPECTOMY (04/27/15) ENDOSC POLYPECTOMY OF LG INTEST (04/27/15) EXCISION OF ASCENDING COLON, ENDO, DIAGN (05/02/17) EXCISION OF DESCENDING COLON, ENDO, DIAGN (05/02/17) EXCISION OF LEFT LOWER LEG SKIN, EXTERNAL APPROACH, DIAGN (11/16/20) EXCISION OF TRANSVERSE COLON, ENDO, DIAGN (05/02/17) Sepsis Event Note (H) - Evaluation Current Stage of Sepsis: Ruled out
[2022-08-18] MEDS: MORPHINE IR 15 MG TABLET PO PRN (19:06)
[2022-08-19] MEDS: METHADONE 5 MG TABLET PO SCH ×3 (05:35→22:07)
[2022-08-19] MEDS: MORPHINE IR 15 MG TABLET PO SCH ×3 (06:50→22:07)
[2022-08-19] MEDS: SENNA 8.6 MG TABLET PO SCH ×2 (08:42→21:02)
[2022-08-19] MEDS: dexAMETHasone 4 MG TABLET PO SCH (08:43)
[2022-08-19] MEDS: DOCUSATE SODIUM 250 MG CAPSULE PO SCH ×2 (08:43→21:02)
[2022-08-19] MEDS: MULTIVITAMIN W/MINERALS TABLET PO SCH (08:44)
[2022-08-19] MEDS: polyethylene glycoL 3350 17 GM PACKET PO SCH (08:44)
[2022-08-19] MEDS: ENOXAPARIN 40 MG/0.4 ML SYRINGE SUBQ SCH (08:44)
--- NOTE | 2022-08-19 16:16 | PROVIDER PROGRESS NOTE ---
Assessment/Plan - Problem List (1) Metastatic lung cancer (metastasis from lung to other site) Qualifiers: Qualified Code(s): C34.90 - Malignant neoplasm of unspecified part of unspecified bronchus or lung Assessment/Plan: His pain worsened the last week, in the rib cage area. No XRay was done as it would likely show more tumor spread into ribs, and would not tar heat exchanger cleaner. We increased immediate release morphine to 30 mg 4 times daily scheduled dose, and continued immediate release morphine 30 mg every 4 hours as needed. With that he was more sleepy and had less appetite, likely from the higher narcotics. Several days ago, I increased Methadone to alow a decrease in Morphine. His pain is under control AND he is more alert, not as somnolent, and some appetite has returned, since methadone was increased and morphine decreased. Plan: Cont the increased Methadone 7.5 TID started on 08/17 for the increased pain, as was recommended by proposal consultant several weeks ago That Methadone increase did allow a lower Morphine IR dose than 30mg QID. Will continue the Methadone IR at 20 mg TID started today. Continue Morphine IR 30mg prn Meds to use with Hospice need to be prescribed at discharge to [facility] 2. 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 3. Cognitive impairment Plan: A court appointed guardian was needed. This patient was assigned a Court Visitor: Octavio Hernandez. Yesterday, 08/18/22, I did reach out and speak to his assigned Court Visitor, Octavio Hernandez, at [phone], who gave consent for a completed POLST form. The call was witnessed and form signed by ALEN Rodriguez. POLST form given to [facility] ALEN Anderson and a copy was scanned into this EMR. Today, 08/19/22, the courthouse did officially name his Legally appointed Guardian: So Manuel, she is Tim Tapia's step-son's significant-other and mother to [facility]. SW asked me to speak to Neela and I did today by stefany. The stepson Yasmany was also on the phone. We discussed the pt's current condition and medicines and that he is going to be accepted by Hospice soon and possibly going to a facility soon. Today we learned that, if guardianship and hospice are set up, Mr Tapia can be discharged and received as a patient on Friday08/20/22, at [facility]: [id number], [place] [address]. Also, patient is scheduled for admission to Hospice services on 08/22/22 at 1400 with [facility] ([phone]). - Current Meds Current Meds: Current Medications Generic Name Dose Route Start Last Admin Trade Name Freq PRN Reason Stop Dose Admin Acetaminophen 650 mg 05/29/22 14:15 08/13/22 15:49 Acetaminophen 325 Mg Tablet PO 650 mg Q4HR PRN Administration Pain 1 to 4, or Fever Dexamethasone 4 mg 08/04/22 08:00 08/19/22 08:43 Dexamethasone 4 Mg Tablet PO 4 mg DAILYWM IMCHAELA Administration Docusate Sodium 250 - 500 mg 07/04/22 21:00 08/19/22 08:43 Docusate Sodium 250 Mg Capsule PO 250 mg BID MICHAELA Administration Enoxaparin Sodium 40 mg 05/30/22 09:00 08/19/22 08:44 Enoxaparin 40 Mg/0.4 Ml Syringe SUBQ 40 mg DAILY MICHAELA Administration Lidocaine 1 patch 08/01/22 16:00 08/18/22 18:18 Lidocaine Patch 5% TOP Not Given 1600 MICHAELA Lorazepam 1 mg 07/13/22 18:33 08/16/22 22:44 Lorazepam 0.5 Mg Tablet SL 1 mg Q4H PRN Administration Anxiety Methadone HCl 7.5 mg 08/17/22 14:00 08/19/22 14:05 Methadone 5 Mg Tablet PO 7.5 mg TID MICHAELA Administration Morphine Sulfate 30 mg 08/12/22 10:23 08/18/22 19:06 Morphine Ir 15 Mg Tablet PO 30 mg Q4H PRN Administration Severe Pain Morphine Sulfate 22.5 mg 08/18/22 07:00 08/19/22 14:04 Morphine Ir 15 Mg Tablet PO 22.5 mg TID MICHAELA Administration Multi-Ingredient Ointment 1 applic 05/30/22 22:39 08/13/22 05:54 Zinc Oxide 20% Oint 30 Gm Tube TOP 1 applic PRN PRN Administration Skin Care Multivitamins/Minerals 1 tab 05/30/22 11:00 08/19/22 08:44 Multivitamin W/Minerals Tablet PO Not Given DAILYWM MICHAELA Polyethylene Glycol 17 gm 05/30/22 09:00 08/19/22 08:44 Polyethylene Glycol 3350 17 Gm Packet PO 17 gm DAILY MICHAELA Administration Psyllium Hydrophilic Mucilloid 1 packet 06/21/22 08:53 07/11/22 12:37 Psyllium Packet PO 1 packet DAILY PRN Administration Constipation Senna 8.6 - 17.2 mg 07/04/22 17:00 08/19/22 08:42 Senna 8.6 Mg Tablet PO 8.6 mg BID MICHAELA Administration - Lab Result Fish Bone Diagrams: 07/13/22 08:19 07/13/22 08:19 Subjective - Subjective Patient Reports: Resting Comfortably, No Complaints Nursing Reports: Other (RN reports that his pain is under control AND that he is more alert, not as somnolent, and some appetite has returned, since methadone wasincreased and morphine decreased.) Objective Vital Signs: Vital Signs - 24 hr 08/18/22 08/19/22 21:00 08:24 Temperature 36.5 C 36.7 C Heart Rate [ 52 L 56 L Brachial] Respiratory 16 18 Rate Blood Pressure 113/48 L 110/47 L [Right Brachial artery] O2 Saturation 95 90 L Oxygen O2 Source Room air I&O (Last 24 Hrs): Intake and Output Totals x24h 08/17/22 08/18/22 08/19/22 23:59 23:59 23:59 Intake Total 235 270 600 Output Total 125 400 150 Balance 110 -130 450 General: Alert, Other (Cachectic, pale, appears fatigued) HEENT: Mucous membr. moist/pink, Other (Temporal wasting) Neck: Supple, No JVD Neuro: Alert, Non Focal Cardiovascular: Regular rate Respiratory: No respiratory distress Abdomen: Soft Extremities: No clubbing, No edema - Results Results: Laboratory Results WBC 8.4 x10^3/uL (4.8-10.8) 07/13/22 08:19 RBC 3.87 10^6/uL (4.70-6.10) L 07/13/22 08:19 Hgb 9.7 g/dL (14.0-18.0) L 07/13/22 08:19 Hct 32.7 % (42.0-52.0) L 07/13/22 08:19 MCV 84.5 fL (80.0-94.0) 07/13/22 08:19 MCH 25.1 pg (27.0-31.0) L 07/13/22 08:19 MCHC 29.7 g/dL (32.0-36.0) L 07/13/22 08:19 RDW 15.9 % (12.0-15.0) H 07/13/22 08:19 Plt Count 543 10^3/uL (130-450) H 07/13/22 08:19 MPV 8.6 fL (7.4-11.4) 07/13/22 08:19 Neut # (Auto) 5.7 10^3/uL (1.5-6.6) 07/13/22 08:19 Lymph # (Auto) 1.4 10^3/uL (1.5-3.5) L 07/13/22 08:19 [place] # (Auto) 1.0 10^3/uL (0.0-1.0) 07/13/22 08:19 Eos # (Auto) 0.1 10^3/uL (0.0-0.7) 07/13/22 08:19 Baso # (Auto) 0.1 10^3/uL (0.0-0.1) 07/13/22 08:19 Absolute Nucleated RBC 0.00 x10^3/uL 07/13/22 08:19 Nucleated RBC % 0.0 /100WBC 07/13/22 08:19 PT 13.8 secs (9.9-12.6) H 05/30/22 04:50 INR 1.3 (0.8-1.2) H 05/30/22 04:50 Sodium 133 mmol/L (135-145) L 07/13/22 08:19 Potassium 3.9 mmol/L (3.5-5.0) 07/13/22 08:19 Chloride 94 mmol/L (101-111) L 07/13/22 08:19 Carbon Dioxide 27 mmol/L (21-32) 07/13/22 08:19 Anion Gap 12.0 (6-13) 07/13/22 08:19 BUN 18 mg/dL (6-20) 07/13/22 08:19 Creatinine 0.8 mg/dL (0.6-1.2) 07/13/22 08:19 Estimated GFR (MDRD) 93 (>89) 07/13/22 08:19 Glucose 94 mg/dL (70-100) 07/13/22 08:19 Calcium 9.1 mg/dL (8.5-10.3) 07/13/22 08:19 Phosphorus 1.1 mg/dL (2.5-4.6) L 05/30/22 04:50 Magnesium 2.1 mg/dL (1.7-2.8) 06/07/22 05:01 Total Bilirubin 0.8 mg/dL (0.2-1.0) 05/29/22 06:20 AST 20 IU/L (10-42) 05/29/22 06:20 ALT 17 IU/L (10-60) 05/29/22 06:20 Alkaline Phosphatase 58 IU/L (42-121) 05/29/22 06:20 Total Creatine Kinase 87 IU/L (22-269) 05/28/22 11:50 Total Protein 6.4 g/dL (6.7-8.2) L 05/29/22 06:20 Albumin 2.5 g/dL (3.2-5.5) L 05/29/22 06:20 Globulin 3.9 g/dL (2.1-4.2) 05/29/22 06:20 Albumin/Globulin Ratio 0.6 (1.0-2.2) L 05/29/22 06:20 Lipase 35 U/L (22-51) 05/29/22 06:20 TSH 2.68 uIU/mL (0.34-5.60) 05/30/22 04:50 Urine Color DARK YELLOW 05/28/22 12:07 Urine Clarity CLEAR (CLEAR) 05/28/22 12:07 Urine pH 6.0 PH (5.0-7.5) 05/28/22 12:07 Ur Specific [place] 1.025 (1.002-1.030) 05/28/22 12:07 Urine Protein 30 mg/dL (NEGATIVE) H 05/28/22 12:07 Urine Glucose (UA) NEGATIVE mg/dL (NEGATIVE) 05/28/22 12:07 Urine Ketones 15 mg/dL (NEGATIVE) H 05/28/22 12:07 Urine Occult Blood LARGE (NEGATIVE) H 05/28/22 12:07 Urine Nitrite NEGATIVE (NEGATIVE) 05/28/22 12:07 Urine Bilirubin NEGATIVE (NEGATIVE) 05/28/22 12:07 Urine Urobilinogen 1 (NORMAL) E.U./dL (NORMAL) 05/28/22 12:07 Ur Leukocyte Esterase NEGATIVE (NEGATIVE) 05/28/22 12:07 Urine RBC TNTC /HPF (0-5) H 05/28/22 12:07 Urine WBC 6-10 /HPF (0-3) H 05/28/22 12:07 Ur Epithelial Cells MOD Transitional /HPF (<= Few) H 05/28/22 12:07 Ur Squamous Epith Cells FEW Squamous (<= Few) 05/28/22 12:07 Urine Bacteria Few /HPF (None Seen) 05/28/22 12:07 Urine Casts 6-10 Hyaline Casts /LPF 05/28/22 12:07 Ur Microscopic Review INDICATED 05/28/22 12:07 Urine Culture Comments NOT INDICATED 05/28/22 12:07 Coronavirus (PCR) NEGATIVE 05/29/22 14:20 - Procedures Procedures: Procedures ENDO RECTUM POLYPECTOMY (04/27/15) ENDOSC POLYPECTOMY OF LG INTEST (04/27/15) EXCISION OF ASCENDING COLON, ENDO, DIAGN (05/02/17) EXCISION OF DESCENDING COLON, ENDO, DIAGN (05/02/17) EXCISION OF LEFT LOWER LEG SKIN, EXTERNAL APPROACH, DIAGN (11/16/20) EXCISION OF TRANSVERSE COLON, ENDO, DIAGN (05/02/17) Sepsis Event Note (H) - Evaluation Current Stage of Sepsis: Ruled out
[2022-08-19] MEDS: LIDOCAINE PATCH 5% TOP SCH (16:39)
[2022-08-20] MEDS: METHADONE 5 MG TABLET PO SCH ×2 (06:15→13:29)
[2022-08-20] MEDS: MORPHINE IR 15 MG TABLET PO SCH ×2 (06:51→13:25)
[2022-08-20] MEDS: dexAMETHasone 4 MG TABLET PO SCH (07:47)
[2022-08-20] MEDS: ACETAMINOPHEN 325 MG TABLET PO PRN (07:47)
[2022-08-20] MEDS: MULTIVITAMIN W/MINERALS TABLET PO SCH (07:47)
[2022-08-20] MEDS: polyethylene glycoL 3350 17 GM PACKET PO SCH (07:49)
[2022-08-20] MEDS: ENOXAPARIN 40 MG/0.4 ML SYRINGE SUBQ SCH (07:49)
[2022-08-20] MEDS: DOCUSATE SODIUM 250 MG CAPSULE PO SCH (07:49)
[2022-08-20] MEDS: SENNA 8.6 MG TABLET PO SCH (07:49)
[2022-08-20 08:40] VITALS: BP 116/48
[2022-08-20] MEDS: MORPHINE IR 15 MG TABLET PO PRN (08:59)
--- NOTE | 2022-08-20 11:09 | Discharge Plan ---
Discharge Plan for SNF / [facility] - Discharge Plan And Transition Orders Problem Reviewed?: Yes Disposition: 50 Hospice/Home DC/Xfer Condition: Poor Allergies and Adverse Reactions: Allergies Allergy/AdvReac Type Severity Reaction Status Date / Time chocolate flavor AdvReac Headache Verified 06/11/22 11:29 Health Concerns: A very pleasant 81-year-old male who presented to our emergency room May 29 who was found down in his apartment for an unknown length of time. Antecedent history was that of severe axillary pain radiating through the scapula since November of this year, unintended weight loss from 179 pounds to 88 pounds. He was found to have a lung mass that was eroding away rib cage in the axillary line. Even though the patient has dementia and has forgetfulness, he had been very consistent from the night of admission to subsequent conversations that he understood he had "a cancer" and he did not want treatment. He did not want a biopsy, he did not want surgery, he did not want chemo, he did not want radiation. He just wanted just to make him comfortable, and take away the pain. The patient is without any power of document review attorney to speak to. It took us weeks to get a guardian and then that guardian has recently transitioned guardianship and power of document review attorney to another person that knows this patient. Pain has been difficult to control in the last few weeks. If we completely take away his pain he is deeply sedated. But if we back away on his pain medicines he complains of pain. In the initial months with us he gained weight, was ambulating in his room, within the last month he has been basically bedbound. Anytime he sits up to eat breakfast in a chair, or try and sit on the sofa in the room, brings on terrible axillary, scapular pain. His most comfortable position is to lay on his back and not move. His current guardian has now been able to obtain a place for this antony gentleman to live. His remaining friends and family would like him to peacefully near them in [place]. During his stay here he has been nothing but respectful, appropriate, a very gentle soap. It has been an honor and a pleasure to take care of him and trying to make him comfortable. We did have hospice see him and they are the service that added methadone and Decadron to his med list. Currently he is on morphine immediate release 22.5 mg 3 times a day at a scheduled dose. We find that 30 mg sedates him too much. But then we also have 30 mg of morphine immediate release as needed for pain. He is to be continued on the methadone and Decadron. Plan of Treatment: Transition to hospice at a long-term care facility. Care Goals: To peacefully without tremendous pain - SNF / [facility] Transition Orders Admit to (Facility): [facility] Discharge Diagnosis: 1. Postobstructive pneumonia on admission, resolved 2. 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 Unintentional weight loss with severe protein calorie malnutrition 4. Hypokalemia 5. Hyponatremia 6. Dementia Medicare Certification Statement: I certify that [facility] assisted care is medically necessary on a continuing basis for any of the conditions for which she/he is receiving care during hospitalization. Notify PCP of admission and forward orders to primary provider for signature. Other Notification Orders: Call PCP immediately if patient develops dyspnea, chest pain/tightness or edema. Additional Bowel Program Orders: If no BM after 2 days, nurse may give M.O.M. 30ml PO PRN and/or ducolax Supp 1 IA and/or HUGO 250mg P.O., and/or senna 1-2 tabs PO. On day 3 nurse may give repeat above order until residents constipation is resolved. Medication Orders: PLEASE REFER TO THE DISCHARGE MEDICATION LIST. - Medications New Prescriptions: Acetaminophen [Tylenol] 650 mg PO Q4HR PRN #60 tab PRN Reason: Pain 1 to 4, or Fever LORazepam [Ativan] 1 mg SL Q4H PRN #40 tab PRN Reason: Anxiety Docusate Sodium 250Mg Capsule [Colace 250Mg Capsule] 250 mg PO BID #60 cap dexAMETHasone [Decadron] 4 mg PO DAILYWM #30 tab Methadone [Methadone Hcl] 7.5 mg PO TID #90 tab Morphine Ir [Ms Ir] 30 mg PO Q6H PRN #30 tablet PRN Reason: Severe Pain Morphine Ir [Ms Ir] 22.5 mg PO TID #65 tab Zinc Oxide 20% Oint [Zinc Oxide] 1 applic TOP PRN PRN #1 each PRN Reason: Skin Care - Diet Type: Geriatric Texture: Mech soft Liquids: Thin May have monthly special meal: Yes - Therapies | Activity Rehabilitation Potential: Maintain present ADL Functional Activity: Activity as Tolerated
--- NOTE | 2022-08-20 15:08 | DISCHARGE SUMMARY ---
Discharge Summary Admit Date: 05/29/22 Discharge Date: 08/20/22 Discharging Provider: Ann Marie Lewis MD Primary Care Provider: [employer] Code Status: Do Not Attempt Resuscitation Condition at Discharge: Poor Discharge Disposition: 50 Hospice/Home DC/Xfer Discharge Facility Name: [facility] - DIAGNOSES Discharge Diagnoses with Status of Each Condition: 1. Postobstructive pneumonia on admission, resolved 2. 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 Unintentional weight loss with severe protein calorie malnutrition 4. Hypokalemia 5. Hyponatremia 6. Dementia - HPI History of Present Illness: He is an 81-year-old gentleman who is rarely followed by primary care providers since he does not go to them. He used to see Saulo allred, and in the last year established himself with the walk in clinic on [address] for [facility]. He was seen in the walk-in clinic on November 27, 2021 compla ining of pleuritic right axillary pain. He was examined for breast cancer and chest wall exam was negative, no axillary adenopathy found. He was placed on antibiotics and asked to come back if the pain continued and then they would refer him for a mammogram. No chest x-ray was done. He was referred for a mammogram. But he states that he got so tired and could not figure out a way to get the appointment and make it. So he never did the follow-up. The patient denies cough, fevers, sweats. He is a poor historian and I do not know if I can trust him. But he insists that he felt "fine" other than this armpit pain. He has been losing weight because he just does not want to eat. In April 2009 he was 179 pounds. December 2020 he was 152 pounds. January 2021 he was 147. In November 2021 he was 136 pounds at the walk-in clinic. He denies any change in bowel habits other than he has not been having bowel movements. He does not feel like he has to go. He is lost appetite and it just got more a more burdensome to try and get food to make it to then eat it. It just got too hard with the effort to eat to stop eating and has been subsisting on "just water".He denies dysphagia. Denies any pain with swallowing. He denies throat pain. There is no abdominal pain. He knows he has been getting weaker and skinnier but seems powerless to stop it and has no support system to help him. So he says that he has been pretty isolated over the last few months. He has a chronic mild daily cough and it is unchanged. No hemoptysis, no change in the phlegm color. He has chronic urgency, frequency, but that is associated with prostate he says for years and years now. Nothing new there. His body always hurts. 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 But that is not any new problems. If anything does have gotten worse and it contributed to his inability to be mobile. He had not paid his rent this month. As such the [employer] that takes care of his cottage called for a welfare check. He was found down on the floor and he tells him that he may been down for as long as 5 days. The same [employer] was able to contact his "grandson". Although the patient has never , he did live with a woman for quite some time before he broke up with her. He became close with her daughter, and it is her daughter's son, the person he calls "grandson", whom the [employer] called. Apparently the [employer] employee was an ex-girlfriend of the grandson. They dated 10 years ago. She managed to call the patient's grandson to let him know that Mr. Tapia was in the hospital. It is "that grandson" that is at the bedside to help me get to the story of this patient. He has been in the emergency room since May 28. It was felt that the patient had a normal white cell count, no fever, normal oxygen so we could go home with the pneumonia that was seen on chest x-ray. However the patient is unable to ambulate. He is too weak. He was also fed in the emergency room and is unable to swallow. He has electrolyte abnormalities with a sodium. As such with the low sodium, severe weakness and protein calorie malnutrition, and pneumonia, the patient will be admitted to the hospital CT of chest was done in the emergency room to complete his work-up. He has a right hemothorax finding highly suspicious for disseminated malignancy, most commonly lung cancer metastatic to pleura among other possibilities. He has local invasion through the chest wall with a pathologic fracture of the right third rib. He has mediastinal and hilar adenopathy. If tissue confirmation is necessary this is amenable to percutaneous sampling. He has loss of T6 vertebral body. Consider CT PET for further work-up. - Past Medical History Cardiovascular: reports: Hypertension, High cholesterol Respiratory: reports: Other (costochondritis) Neuro: reports: None Endocrine/Autoimmune: reports: HyPOthyroidism GI: reports: Colon polyps : reports: Other (Erectile dysfunction and genital herpes) HEENT: reports: None Psych: reports: None Musculoskeletal: reports: Osteoarthritis (Back, and knees, feet) Derm: reports: Eczema, Other (Seborrheic dermatitis, chronic venous stasis dermatitis with ulcers) MRSA Hx?: No - Past Surgical History General: reports: Colonoscopy HEENT: reports: Tonsil/Adenoidectomy - CONSULTS | PROCEDURES Procedures: Chest x-ray has decreased right lung volume with small to moderate right pleural effusion and right lung atelectasis and infiltrate. No gross pneumothorax. Abdomen pelvis CT with a small to moderate loculated right pleural effusion with nodular pleural thickening. Compressive atelectasis within the right lung base. Consolidation of the right lower and middle lobes. Left lung is clear. Liver did not have any masses. Kidneys had no masses. There was some distention at the rectosigmoid compatible with constipation. Findings were suspicious for neoplasm at that lung base. Chest CT left lung was clear. There was diffuse near circumferential right pleural thickening and loculated effusion. Suspected mass at the right base measuring 5.6 x 3.3 cm. Diffuse pleural nodularity compatible with pleural spread. Invasion through the chest wall in the right apex measuring 4 cm at thickness. There was also involvement of invasion through the adjacent ribs and pathologic fracture of the third rib. Heart size was normal. Mediastinal hilar adenopathy was seen. - HOSPITAL COURSE Hospital Course: The patient was placed into the hospital thinking that we were go to be diagnosing a postobstructive pneumonia and possibly getting a biopsy of this lung tumor. The patient was demented, and had gradually progressive weight loss and was identified as having severe cachexia and protein calorie malnutrition. He had significant memory loss, was vague in his history, but was very consistent in saying the same thing. He knew that he was in trouble, and knew that he most likely had "a tumor". He was able to clearly tell me over many visits that he did not want anything done for this. He did not want a lung biopsy to identify it. He did not want chemo or radiation. He did not want surgery. He repeatedly stated he just wanted to be kept comfortable, and warm. As such, even though he was demented, we honored his wishes because he was very consistent over multiple visits and multiple occasions with different providers and nursing. We treated his postobstructive pneumonia, and then transitioned him to opioids to help with his pain. We consulted with hospice medical records custodian for pain management and to see if he was a GIP candidate and he was not. He had to get a guardian appointed. From there that guardian was unable to get the financial information needed to then put him in a custodial. The guardian then transferred for guardianship to "a family member". Mr. Tapia had previously lived with a woman who now had issues of her own. He lives with her long enough that he called her his "" even there were they were never legally . She had children and grandchildren that he regarded has his children and grandchildren. But he lost contact with them over the last 2 years because he had moved without forwarding address, and it also changed to cell phone number. As such one of his stepsons ex-wives, Mr. Tapia's stepdaughter in law wanted to assume guardianship. The family still regarded him with fondness. She lives in [place]. And he was transferred to [facility] to be taken care of there and to be closer to family he still had left. Even with morphine immediate release 22.5 mg p.o. 3 times daily scheduled, 30 mg p.o. every 4 hours as needed, methadone 7.5 mg p.o. 3 times daily he is still in considerable pain when you move him. I am hoping that when he gets to the custodial, he can be seen by hospice with more aggressive pain management and long- term opioids. Goal has always been comfort. He initially gained quite a bit of weight after losing a tremendous amount of weight before coming here. But as pain became more severe and his appetite diminished and he started losing weight again. At discharge he was 5 feet 6 inches tall, weight 41 kg. 36.5 temperature. Pulse 54. Blood pressure 116/48. Respirations 22. 96% on room air. He was alert, cooperative. Helping the EMS crew transfer him from his bed to a gurney. He said goodbye to us. And he thanked us. He knew that he was going to a new custodial from the hospital. He was very gaunt, cachectic. Moving him causes considerable pain in the mid axilla, armpit, and in the right scapula. You can feel with a tumor erosion is happening from the inside out. He has no skin breakdown. His extremities are remarkable for the got as an cachexia from the severe loss of weight. Greater than 30 minutes was spent coordinating discharge. - ALLERGIES Allergies/Adverse Reactions: Allergies Allergy/AdvReac Type Severity Reaction Status Date / Time chocolate flavor AdvReac Headache Verified 06/11/22 11:29 - MEDICATIONS Home Medications: Ambulatory Orders Medication Instructions Recorded Confirmed Acetaminophen [Tylenol] 650 mg PO Q4HR PRN #60 tab 08/20/22 Docusate Sodium 250Mg Capsule 250 mg PO BID #60 cap 08/20/22 [Colace 250Mg Capsule] LORazepam [Ativan] 1 mg SL Q4H PRN #40 tab 08/20/22 Methadone [Methadone Hcl] 7.5 mg PO TID #90 tab 08/20/22 Morphine Ir [Ms Ir] 22.5 mg PO TID #65 tab 08/20/22 Morphine Ir [Ms Ir] 30 mg PO Q6H PRN #30 tablet 08/20/22 Zinc Oxide 20% Oint [Zinc Oxide] 1 applic TOP PRN PRN #1 each 08/20/22 dexAMETHasone [Decadron] 4 mg PO DAILYWM #30 tab 08/20/22 - LABS Result Diagrams: 07/13/22 08:19 07/13/22 08:19 - SEPSIS Current Stage of Sepsis: Ruled out
== END 2022-08-20 14:20 | disposition hospice, home (50) | DRG 947 ==
LOC: EDUNIT# → ED 11:24 → MS2 05-29 14:15
PROVIDERS: ADMIT Specialist; ATTEND Specialist
DX: J18.9 Pneumonia, unspecified organism (principal); G89.3 Neoplasm related pain (acute) (chronic); E86.0 Dehydration; E46 Unspecified protein-calorie malnutrition; Z68.25 Body mass index [BMI] 25.0-25.9, adult; E43 Unspecified severe protein-calorie malnutrition; J18.8 Other pneumonia, unspecified organism; Z20.822 Contact with and (suspected) exposure to COVID-19; C34.31 Malignant neoplasm of lower lobe, right bronchus or lung; C34.90 Malignant neoplasm of unspecified part of unspecified bronchus or lung; C79.51 Secondary malignant neoplasm of bone; E87.1 Hypo-osmolality and hyponatremia; M84.48XA Pathological fracture, other site, initial encounter for fracture; R31.9 Hematuria, unspecified; J94.2 Hemothorax; L53.9 Erythematous condition, unspecified; L97.909 Non-pressure chronic ulcer of unspecified part of unspecified lower leg with unspecified severity; J90 Pleural effusion, not elsewhere classified; R64 Cachexia; E87.6 Hypokalemia; F03.90 Unspecified dementia, unspecified severity, without behavioral disturbance, psychotic disturbance, mood disturbance, and anxiety; N40.1 Benign prostatic hyperplasia with lower urinary tract symptoms; R39.15 Urgency of urination; R35.0 Frequency of micturition; W18.30XA Fall on same level, unspecified, initial encounter; Y92.009 Unspecified place in unspecified non-institutional (private) residence as the place of occurrence of the external cause; R13.10 Dysphagia, unspecified; R53.1 Weakness; A60.00 Herpesviral infection of urogenital system, unspecified; M17.0 Bilateral primary osteoarthritis of knee; M19.072 Primary osteoarthritis, left ankle and foot; M19.071 Primary osteoarthritis, right ankle and foot; M47.9 Spondylosis, unspecified; L30.9 Dermatitis, unspecified; L21.9 Seborrheic dermatitis, unspecified; I87.8 Other specified disorders of veins; I83.009 Varicose veins of unspecified lower extremity with ulcer of unspecified site; R41.3 Other amnesia; R59.0 Localized enlarged lymph nodes; Z66 Do not resuscitate; R19.4 Change in bowel habit; K21.9 Gastro-esophageal reflux disease without esophagitis; E03.9 Hypothyroidism, unspecified; R62.7 Adult failure to thrive; F10.21 Alcohol dependence, in remission; R41.89 Other symptoms and signs involving cognitive functions and awareness; I12.9 Hypertensive chronic kidney disease with stage 1 through stage 4 chronic kidney disease, or unspecified chronic kidney disease; N18.9 Chronic kidney disease, unspecified; N39.498 Other specified urinary incontinence; H91.90 Unspecified hearing loss, unspecified ear; R53.83 Other fatigue; H92.01 Otalgia, right ear; Z68.26 Body mass index [BMI] 26.0-26.9, adult; Z87.891 Personal history of nicotine dependence; R41.0 Disorientation, unspecified; T40.2X5A Adverse effect of other opioids, initial encounter; Y92.230 Patient room in hospital as the place of occurrence of the external cause
CPT/HCPCS: 36415; 71045; 71260; 74176; 80048; 80053; 81001; 82550; 83690; 83735; 84100; 84443; 85025; 85610; 92523; 93005; 94640; 96361; 96365; 96375; 97162; 97164; 97167; 97168; 97530; 97535; 99284; 99285; A9270; J1650; J7120; J8540; Q9967; U0004; 81003; 87086; 90662